=== PATIENT | female | born 1960 | race Caucasian/White ===

== ENCOUNTER → 2019-10-03 16:04 | Outpatient (BNVA) | payer MEDICAID, SELFPAY | PROVIDERS: Family Provider Family Medicine; PCP Family Medicine; Visit Provider Nurse Practitioner | DX: R05 Cough (principal); J22 Unspecified acute lower respiratory infection | CPT/HCPCS: 71046 ==

== ENCOUNTER 2020-04-23 11:04 | Inpatient (IN) | payer MEDICAID, SELFPAY ==
[2020-04-23] VITALS (30 sets, daily range): BP systolic 105–168; BP diastolic 76–110; PULSE 56–126; RESP 7–47; TEMP 36.6–36.8; O2SAT 88–100; BMI 13.2
--- NOTE | 2020-04-23 11:23 | XR_ITS ---
WS: [id number] Exam: XR chest 1V portable [id number] Date/Time of Exam: 04/23/2020 11:27 AM Reason For Exam: chest pain Comparison 10/03/2019. The lungs are hyperinflated and clear. Normal cardiomediastinal structures. Healing fracture with jena juancarlos involving the posterior lateral left ninth rib. XR/XR chest 1V portable [id number] IMPRESSION: 1. Pulmonary hyperinflation which may indicate COPD. 2. No acute cardiopulmonary process. 3. Healing fracture of the left ninth rib.
--- NOTE | 2020-04-23 11:30 | W.ED.CHESTPA ---
HPI - Chest Pain General: Chief Complaint: Chest Pain Stated Complaint: SOB, CHEST PAIN Time Seen by Provider: 04/23/20 11:05 History of Present Illness: HPI narrative: 59-year-old female presents emergency room with complaint of chest pain and shortness of breath. She has had this for last couple days she usually uses 2 L by nasal cannula but at times getting excessively short of breath her sats drop into the 80s even when her oxygen sat is turned off she is also had some intermittent chest pain that begins while at rest it resolved spontaneously. She denies any fever has had an increased cough with increased sputum production. MD complaint: chest heaviness Pertinent past history: other (COPD) Onset (ago): hour(s) Timing of current episode: constant and increasing Onset: during rest Pain radiation: none Severity: mild Quality: heaviness Relieving factors: nothing Exacerbating factors: nothing Associated symptoms: Reports dyspnea; Deny abdominal pain, diaphoresis, fever(s), leg edema, nausea, palpitations, sense of impending doom, syncope or vomiting Treatment prior to arrival: none Review of Systems Const: Denies: fever(s) or diaphoresis ENMT: Denies: throat pain, ear or mastoid pain, nasal discharge or nasal congestion Card: Denies: palpitations or syncope Resp: Reports: dyspnea and productive cough GI: Denies: abdominal pain, nausea or vomiting : Denies: flank pain, difficulty voiding, dysuria, urinary frequency or urinary urgency Skin/Breast: Denies: rash or pruritus PFSH ED PFSH: Medical History COPD (chronic obstructive pulmonary disease) GERD (gastroesophageal reflux disease) Surgical History H/O laparoscopy Family History Mother COPD (chronic obstructive pulmonary disease) Father CAD (coronary artery disease) Social History Smoking and tobacco status: current every day smoker Alcohol intake: never Substance/Drug Use: never Physical Exam Const: COMMON NORMALS: no acute distress GENERAL APPEARANCE: cooperative and comfortable ORIENTATION/CONSCIOUSNESS: Yes awake, Yes oriented to person, Yes oriented to place and Yes oriented to time HENMT: COMMON NORMALS: normocephalic, atraumatic and hearing grossly normal bilaterally HEAD & SCALP: normocephalic and atraumatic Neck/C-Spine: COMMON NORMALS: no JVD Resp: COMMON NORMALS: normal respiratory effort, No retractions, No use of accessory muscles and clear to auscultation bilaterally AUSCULTATION: clear to auscultation bilaterally Cardio: COMMON NORMALS: no JVD, regular rate, regular rhythm and No murmurs present (Cardio) RATE: regular rate RHYTHM: regular rhythm GI: COMMON NORMALS: Soft to palpation and No hepatosplenomegaly present AUSCULTATION: Yes normoactive bowel sounds PALPATION: Yes Soft to palpation, No Tenderness to palpation present (GI), No Guarding due to palpation present (GI) and Yes No hepatosplenomegaly present Extremity: COMMON NORMALS: normal to inspection, capillary refill normal, no clubbing, cyanosis or edema, no calf tenderness and no pedal edema Neuro: SENSORIUM/ORIENTATION: Yes oriented to person, Yes oriented to place and Yes oriented to time Skin: COMMON NORMALS: no rashes or lesions noted GENERAL SKIN EXAM: no rashes or lesions noted Course Vital Signs: Vital signs: Vital Signs Temperature 98.2 F 04/23/20 11:05 Pulse Rate 121 H 04/23/20 13:00 Respiratory Rate 26 H 04/23/20 13:00 Blood Pressure 139/98 04/23/20 13:00 Pulse Oximetry 98 04/23/20 13:00 MDM - Chest Pain MDM Narrative: Medical decision making narrative: Chest x-ray looks clear. Patient has acute hypercapnic respiratory failure suspect she has no pneumonia at this point. We did screen for Covid. Is improved on BiPAP will admit her to the ICU she does need sedation to tolerate BiPAP. Lab Data: Labs: Lab Results 04/23/20 04/23/20 04/23/20 Range/Units 11:26 11:26 11:26 WBC 3.9 L (4.0-10.0) 10^3/ uL RBC 4.67 (4.1-5.3) 10^6/u L Hgb 13.2 (11.5-15.3) g/dL Hct 43.6 (37.0-47.0) % MCV 93.4 (81-99) fL MCH 28.3 (28.0-34.0) pg MCHC 30.3 (30.0-36.0) g/dL RDW 12.4 (12.1-15.1) % Plt Count 188 (130-400) 10^3/c mm MPV 10.3 (7.4-10.4) fL Neut % (Auto) 58.9 % Lymph % (Auto) 24.5 % Mcdowell % (Auto) 10.9 % Eos % (Auto) 3.6 % Baso % (Auto) 1.6 % Neut # (Auto) 2.28 (1.8-7.7) 10^3/u L Lymph # (Auto) 1.0 (0.8-4.8) 10^3/u L Mcdowell # (Auto) 0.4 (0.2-0.9) 10^3/u L Eos # (Auto) 0.1 (0.0-0.8) 10^3/u L Baso # (Auto) 0.1 (0.0-0.1) 10^3/u L Nucleated RBC % (a uto) 0 % Nucleated RBCs # 0.0 /100WBC Specimen Type Sample Site ABG pH (7.35-7.45) ABG pCO2 (35-45) mmHg ABG pO2 (80.0-100.0) mmH g ABG HCO3 (22-26) mmol/L ABG O2 Saturation ABG Base Excess (-2.0-2.0) mmol/ L Adrian Test A-a O2 Gradient Hematocrit (37-47) % Hgb O2 Saturation (95-100) % Carboxyhemoglobin (0.4-20.1) %THgb Methemoglobin (0.4-1.5) % Total Hemoglobin (12-16) g/dL Ionized Calcium (1.1-1.4) mmol/L O2 Delivery Device O2 Liters/Min % Development Professional ID Sodium Cancelled Potassium Cancelled Chloride Cancelled Carbon Dioxide Cancelled Anion Gap Cancelled BUN Cancelled Creatinine Cancelled GFR Calculation Cancelled Glucose Cancelled Calculated Osmolal ity Cancelled Calcium Cancelled Total Bilirubin Cancelled AST Cancelled ALT Cancelled Alkaline Phosphata se Cancelled Troponin T Baselin e Cancelled Total Protein Cancelled Albumin Cancelled Globulin Cancelled SARS-CoV-2 Ag (Rap id) (Negative) 04/23/20 04/23/20 04/23/20 Range/Units 11:50 12:01 12:07 WBC (4.0-10.0) 10^3/ uL RBC (4.1-5.3) 10^6/u L Hgb (11.5-15.3) g/dL Hct (37.0-47.0) % MCV (81-99) fL MCH (28.0-34.0) pg MCHC (30.0-36.0) g/dL RDW (12.1-15.1) % Plt Count (130-400) 10^3/c mm MPV (7.4-10.4) fL Neut % (Auto) % Lymph % (Auto) % Mcdowell % (Auto) % Eos % (Auto) % Baso % (Auto) % Neut # (Auto) (1.8-7.7) 10^3/u L Lymph # (Auto) (0.8-4.8) 10^3/u L Mcdowell # (Auto) (0.2-0.9) 10^3/u L Eos # (Auto) (0.0-0.8) 10^3/u L Baso # (Auto) (0.0-0.1) 10^3/u L Nucleated RBC % (a uto) % Nucleated RBCs # /100WBC Specimen Type Arterial Sample Site Brachial, left ABG pH 7.36 (7.35-7.45) ABG pCO2 90.1 H* (35-45) mmHg ABG pO2 91.7 (80.0-100.0) mmH g ABG HCO3 50.4 H (22-26) mmol/L ABG O2 Saturation 97.8 ABG Base Excess 20.0 H (-2.0-2.0) mmol/ L Adrian Test N/a A-a O2 Gradient Not Reportable Hematocrit 39.9 (37-47) % Hgb O2 Saturation 96.0 (95-100) % Carboxyhemoglobin 1.1 (0.4-20.1) %THgb Methemoglobin 0.7 (0.4-1.5) % Total Hemoglobin 13.0 (12-16) g/dL Ionized Calcium 1.2 (1.1-1.4) mmol/L O2 Delivery Device Nc O2 Liters/Min 2.5 % Development Professional ID Gd Sodium 136.0 137 Potassium 4.2 4.5 Chloride 90 L Carbon Dioxide 47 H* Anion Gap 4.5 L BUN 9 Creatinine 0.8 GFR Calculation 73.7 L Glucose 107.0 111 Calculated Osmolal ity 283 L Calcium 9.5 Total Bilirubin 0.4 AST 26 ALT 22 Alkaline Phosphata se 56 Troponin T Baselin e Total Protein 6.4 L Albumin 3.9 Globulin 2.5 SARS-CoV-2 Ag (Rap id) Negative (Negative) 04/23/20 Range/Units 12:07 WBC (4.0-10.0) 10^3/ uL RBC (4.1-5.3) 10^6/u L Hgb (11.5-15.3) g/dL Hct (37.0-47.0) % MCV (81-99) fL MCH (28.0-34.0) pg MCHC (30.0-36.0) g/dL RDW (12.1-15.1) % Plt Count (130-400) 10^3/c mm MPV (7.4-10.4) fL Neut % (Auto) % Lymph % (Auto) % Mcdowell % (Auto) % Eos % (Auto) % Baso % (Auto) % Neut # (Auto) (1.8-7.7) 10^3/u L Lymph # (Auto) (0.8-4.8) 10^3/u L Mcdowell # (Auto) (0.2-0.9) 10^3/u L Eos # (Auto) (0.0-0.8) 10^3/u L Baso # (Auto) (0.0-0.1) 10^3/u L Nucleated RBC % (a uto) % Nucleated RBCs # /100WBC Specimen Type Sample Site ABG pH (7.35-7.45) ABG pCO2 (35-45) mmHg ABG pO2 (80.0-100.0) mmH g ABG HCO3 (22-26) mmol/L ABG O2 Saturation ABG Base Excess (-2.0-2.0) mmol/ L Adrian Test A-a O2 Gradient Hematocrit (37-47) % Hgb O2 Saturation (95-100) % Carboxyhemoglobin (0.4-20.1) %THgb Methemoglobin (0.4-1.5) % Total Hemoglobin (12-16) g/dL Ionized Calcium (1.1-1.4) mmol/L O2 Delivery Device O2 Liters/Min % Development Professional ID Sodium Potassium Chloride Carbon Dioxide Anion Gap BUN Creatinine GFR Calculation Glucose Calculated Osmolal ity Calcium Total Bilirubin AST ALT Alkaline Phosphata se Troponin T Baselin e 36 H Total Protein Albumin Globulin SARS-CoV-2 Ag (Rap id) (Negative) Discharge Plan Discharge Admit Provider: Nba Wagner Clinical Impression: Acute hypercapnic respiratory failure, HIV (human immunodeficiency virus infection), COPD (chronic obstructive pulmonary disease), GERD (gastroesophageal reflux disease) Condition: Stable Coding Level of Care Code ED Process Development Associate for Paris Dickerson
[2020-04-23 11:36] LABS: Basophils # 0.1 10^3/uL (0.0-0.1); Basophils % 1.6 %; Eosinophils # 0.1 10^3/uL (0.0-0.8); Eosinophils % 3.6 %; Hematocrit 43.6 % (37.0-47.0); Hemoglobin 13.2 g/dL (11.5-15.3); Lymphocytes % 24.5 %; Mean Corpuscular HGB Conc 30.3 g/dL (30.0-36.0); Mean Corpuscular Hemoglobin 28.3 pg (28.0-34.0); Mean Corpuscular Volume 93.4 fL (81-99); Mean Platelet Volume 10.3 fL (7.4-10.4); Monocytes # 0.4 10^3/uL (0.2-0.9); Monocytes % 10.9 %; Neutrophils # 2.28 10^3/uL (1.8-7.7); Neutrophils % 58.9 %; Nucleated Red Blood Cells % 0 %; Platelet Count 188 10^3/cmm (130-400); Red Blood Count 4.67 10^6/uL (4.1-5.3); Red Cell Distribution Width 12.4 % (12.1-15.1); White Blood Count 3.9 10^3/uL (4.0-10.0)
[2020-04-23 12:20] LABS: ABG PH Result 7.36 (7.35-7.45); Arterial Blood Gas Hematocrit 39.9 % (37-47); Blood Gas LPM 2.5 %; Blood Gas Operator Identificat GD; Blood Gas Sample Site Brachial, left; Blood Gas Sample Type Arterial; Carboxyhemoglobin 1.1 %THgb (0.4-20.1); HCO3 ABG 50.4 mmol/L (22-26); Ionized Calcium Level - ABG 1.2 mmol/L (1.1-1.4); Methemoglobin 0.7 % (0.4-1.5); Oxygen Device NC; Oxygen Saturation ABG 97.8; PO2 ABG 91.7 mmHg (80.0-100.0); Potassium Level - ABG 4.2 mmol/L (3.5-5.0)
[2020-04-23 12:21] LABS: ABG PCO2 90.1 mmHg (35-45)
[2020-04-23] MEDS: LORazepam 2 mg/mL INJ 1 mL 1 MG IVP ×2 (12:46→14:12)
[2020-04-23 12:51] LABS: Alanine Aminotransferase 22 U/L (0-33); Albumin Level 3.9 g/dL (3.5-5.2); Alkaline Phosphatase 56 IU/L (35-105); Anion Gap 4.5 (5-19); Aspartate Amino Transferase 26 U/L (0-32); Blood Urea Nitrogen 9 mg/dL (6-20); Calcium 9.5 mg/dL (8.5-10.5); Chloride 90 mmol/L (98-107); Globulin 2.5 g/dL (1.3-4.6); Glomerular Filtration Rate 73.7 mL/min (90-130); Glucose 111 mg/dL (65-115); Osmolality Calculated 283 mOsm/kg (285-295); Potassium 4.5 mmol/L (3.5-5.1); Sodium 137 mmol/L (136-145); Total Bilirubin 0.4 mg/dL (0.15-1.2); Total Protein 6.4 g/dL (6.6-8.7)
--- NOTE | 2020-04-23 12:51 | PC.NURSE ---
Gave 1 mg Ativan to calm and help anxiety from the BiPAP
[2020-04-23 13:08] LABS: Carbon Dioxide 47 mmol/L (22-29)
[2020-04-23 13:17] LABS: SARS Covid-2 Antigen Negative (Negative)
--- NOTE | 2020-04-23 13:23 | ECG_ITS ---
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 Measurements Intervals [place] Rate: 118 P: 87 LA: 135 QRS: 92 QRSD: 80 T: 80 QT: 288 QTc: 404 Interpretive Statements SINUS TACHYCARDIA RIGHT ATRIAL ENLARGEMENT [0.3mV P WAVE] LEFT ATRIAL ENLARGEMENT [-0.15mV P WAVE IN V1/V2] BORDERLINE RIGHT AXIS DEVIATION [QRS AXIS > 90] Compared to ECG 05/18/2018 17:06:44 No significant changes Electronically Signed On 04-24-2020 18:09:59 MANAGER SAS by Darren Blankenship M.D. [id number]
[2020-04-23 13:37] LABS: ABG PH Result 7.41 (7.35-7.45); Arterial Blood Gas Hematocrit 40.4 % (37-47); Base Excess ABG 20.2 mmol/L (-2.0-2.0); Blood Gas Sample Type Arterial; Carboxyhemoglobin 1.2 %THgb (0.4-20.1); HCO3 ABG 49.3 mmol/L (22-26); HGB O2 Sat 92.5 % (95-100); Ionized Calcium Level - ABG 1.2 mmol/L (1.1-1.4); Methemoglobin 0.7 % (0.4-1.5); Oxygen Saturation ABG 94.3; PO2 ABG 63.9 mmHg (80.0-100.0); Potassium Level - ABG 4.3 mmol/L (3.5-5.0); Total Hemoglobin 13.2 g/dL (12-16)
[2020-04-23 13:39] LABS: Blood Gas Sample Site Brachial, left; Oxygen Device BIPAP
[2020-04-23 13:41] LABS: ABG PCO2 77.6 mmHg (35-45); Blood Gas Operator Identificat GD
[2020-04-23 13:44] LABS: Troponin(5th) Baseline 36 ng/L (0-10)
--- NOTE | 2020-04-23 13:44 | P.HP_ITS ---
Providers/Chief Complaint Chief Complaint: SOB, CHEST PAIN History of Present Illness Adore Broussard is a 59 year old female with a past medical history of severe COPD, 2 L oxygen dependent, smoker, history of HIV, who presents to [facility] due to complaints of worsening shortness of breath. Patient tells me that for the last few days her oxygen requirements have increased, she has been desaturating on her pulse ox, feeling more short of breath, no fevers, no chills, has a chronic nonproductive cough, no new recent travel, known exposure to COVID-19, no calf pain, no calf swelling, no hemoptysis. Denies chest pain, denies palpitations. In the emergency room, patient was found to have hypercarbic respiratory failure with PCO2 is in the 90s, was placed on the BiPAP, required a milligram of Ativan to help with her anxiety with the machine, her PCO2 has now improved in the 70s, pH is improving, she is tolerating BiPAP well. Patient is agreeable to intubation or mechanical ventilation if required. No focal pneumonia seen on chest x-ray. Patient's rapid Covid negative. Review of Systems Const: Denies: fever(s), chills, fatigue or malaise Eyes: Denies: change in vision or blurry vision ENMT: Denies: nasal congestion Card: Denies: chest pain or palpitations Resp: Reports: dyspnea and non-productive cough; Denies: productive cough or wheezing GI: Denies: abdominal pain, nausea, vomiting, hematemesis, diarrhea, constipation, hematochezia or melena : Denies: flank pain, dysuria or urinary frequency Musc: Denies: neck pain or back pain Skin/Breast: Denies: rash Neuro: Denies: headache(s), dizziness or vertigo Psych: Denies: anxiety or depression Endo: Denies: polyuria or polydipsia Medications/Allergies Home Medications Medication Instructions Recorded Confirmed Last Taken Type AIDS medications PO 10/03/19 Unknown History albuterol sulfate 1.25 mg/3 mL 2.5 mg INHALATION QID 10/03/19 10/03/19 Unknown History solution for nebulization albuterol sulfate 90 mcg/actuation 2 puff INHALATION Q6H PRN 10/03/19 10/03/19 Unknown History aerosol inhaler budesonide-formoterol HFA 160 2 puff INHALATION BID 10/03/19 10/03/19 Unknown H istory mcg-4.5 mcg/actuation aerosol inhaler doxycycline hyclate 100 mg capsule 100 mg PO BID 10 Days #20 cap 10/03/19 10/03/19 Unknown Rx montelukast 10 mg tablet 10 mg PO DAILY 10/03/19 10/03/19 Unknown History prednisone 20 mg tablet 20 mg PO DAILY 10 Days #10 tab 10/03/19 10/03/19 Unknown Rx sulfamethoxazole 400 1 tab PO .three times weekly tab 10/03/19 10/03/19 Unknown History mg-trimethoprim 80 mg tablet tiotropium bromide 1.25 2 puff INHALATION DAILY 10/03/19 10/03/19 Unknown History mcg/actuation mist for inhalation Allergies Allergy/AdvReac Type Severity Reaction Status Date / Time Penicillins Allergy ALGY-Difficulty Verified 10/03/19 15:40 Breathing phenobarbital Allergy ALGY-Hives Verified 04/23/20 11:18 Tetanus Vaccines and Toxoid Allergy ALGY-Hives Verified 04/23/20 11:18 PFSH Acute PFSH: Medical History (Updated 04/23/20 @ 13:48 by Nba Wagner MD) COPD (chronic obstructive pulmonary disease) GERD (gastroesophageal reflux disease) Surgical History (Updated 04/23/20 @ 13:47 by Nba Wagner MD) H/O laparoscopy Family History (Updated 04/23/20 @ 13:47 by Nba Wagner MD) Mother COPD (chronic obstructive pulmonary disease) Father CAD (coronary artery disease) Social History (Updated 04/23/20 @ 13:47 by Nba Wagner MD) Smoking and tobacco status: current every day smoker Alcohol intake: never Substance/Drug Use: never Vitals/I&O/Wt Last Vital Signs Temp 98.2 F 04/23/20 11:05 Pulse 121 H 04/23/20 13:00 Resp 26 H 04/23/20 13:00 BP 139/98 04/23/20 13:00 Pulse Ox 98 04/23/20 13:00 Weight last 48 hrs Weight 31.751 kg Physical Exam Const: COMMON NORMALS: no acute distress and patient oriented x3 GENERAL APPEARANCE: cooperative and comfortable HENMT: COMMON NORMALS: normocephalic HEAD & SCALP: normocephalic Eye: COMMON NORMALS: Equal, round and reactive pupils present and EOMs intact bilaterally GENERAL EYE: appearance normal, both eyes and all related structures PUPIL: Yes Equal, round and reactive pupils present Neck/C-Spine: COMMON NORMALS: full ROM, no lymphadenopathy, no JVD and Thyroid normal THYROID: Thyroid normal Lymph: LYMPHATIC: no lymphadenopathy noted Resp: COMMON NORMALS: normal respiratory effort and No retractions EFFORT & INSPECTION: Yes tachypneic and Yes retractions (Mild retractions, supr aclavicular, mild intercostal retractions) AUSCULTATION: diminished lung sounds diffuse Cardio: COMMON NORMALS: no JVD, regular rate, regular rhythm, S1 normal heart sound present, S2 normal heart sound present, No gallops present (Cardio), No clicks present (Cardio) and No murmurs present (Cardio) RATE: regular rate RHYTHM: regular rhythm HEART SOUNDS: S1 normal heart sound present and S2 normal heart sound present GI: COMMON NORMALS: Normal to inspection, nondistended, normoactive bowel sounds present, Soft to palpation, non-tender and No hepatosplenomegaly present PALPATION: Yes Soft to palpation and Yes No hepatosplenomegaly present Extremity: COMMON NORMALS: normal to inspection, full ROM and no pedal edema Neuro: COMMON NORMALS: patient oriented x3, CN's II-XII intact bilaterally, moves all extremities and no focal motor deficits Psych: COMMON NORMALS: mental status grossly normal, Normal thought process present and cooperative THOUGHT PROCESS: Normal thought process present Data : 04/23/20 11:26 04/23/20 12:07 A&P Assessment and plan (1) Acute hypercapnic respiratory failure: -Likely secondary to COPD -Rapid Covid negative, but will order Covid PCR -Currently tolerating BiPAP well, PCO2 improved in the 70s, pH improving Plan: -Admit to ICU, patient is ICU level care given significant hypercapnia, BiPAP re quirements, -We will order Covid PCR, Covid isolation -Lovenox for DVT prophylaxis -Full code -Solu-Medrol 60 every 8 -Levaquin for antibiotic coverage -Advair, albuterol, Spiriva, ipratropium -Sputum cultures, blood cultures, urine bacterial antigens, Covid PCR -Monitor respiratory status closely -Repeat ABG at 6 PM -If patient respiratory status worsens, low threshold for intubation -Trend troponins, serial EKGs, telemetry monitoring, order cardiac echo -Order CT angiogram of the chest Status: Acute (2) GERD (gastroesophageal reflux disease): Status: Acute (3) COPD (chronic obstructive pulmonary disease): Status: Acute (4) HIV (human immunodeficiency virus infection): Status: Acute Attestations Medical Necessity Statement*: Patient course hospitalization, inpatient, greater than 2 midnights, ICU, for acute hypercapnic respiratory failure secondary COPD Coding Level of Care Code Acute Scallop Shucker for [facility] Fwd Diagnoses Acute hypercapnic respiratory failure J96.02 GERD (gastroesophageal reflux disease) K21.9 COPD (chronic obstructive pulmonary disease) J44.9 HIV (human immunodeficiency virus infection) B20
[2020-04-23 14:57] LABS: Troponin 5 2HR 31.92 ng/L (0-10)
[2020-04-23 14:58] LABS: Troponin 5 2HR Delta -4.08 ABS# (0-10)
--- NOTE | 2020-04-23 15:19 | PC.NURSE ---
Pt arrived to ICU from ED via bed.
--- NOTE | 2020-04-23 15:37 | CTR_ITS ---
PROCEDURE INFORMATION: Exam: CT Angiography Chest With Contrast Exam date and time: 04/23/2020 4:06 PM Age: 59 years old Clinical indication: Shortness of breath; Additional info: SOB TECHNIQUE: Imaging protocol: Computed tomographic angiography of the chest with intravenous contrast. 3D rendering (Not supervised by radiologist): MIP and/or 3D reconstructed images were created by the technologist. Radiation optimization: All CT scans at this facility use at least one of these dose optimization techniques: automated exposure control; mA and/or kV adjustment per patient size (includes targeted exams where dose is matched to clinical indication); or iterative reconstruction. Contrast material: OMNI 350; Contrast volume: 58 ml; Contrast route: INTRAVENOUS (IV); COMPARISON: CR XR chest 1V portable [id number] 04/23/2020 11:26 AM RADIATION DOSE METRICS: Total DLP (mGy-cm): 344.23 FINDINGS: Pulmonary arteries: Pulmonary arteries are well opacified. Pulmonary arteries are normal in caliber. No filling defects are demonstrated. No evidence of pulmonary embolism. Aorta: Mild atherosclerosis of the thoracic aorta. No aortic aneurysm or dissection. Lungs: Diffuse centrilobular emphysema. No pulmonary infiltrates are noted. No pulmonary nodules identified. Pleural spaces: No pleural effusion or pneumothorax noted. Heart: No cardiomegaly. Thickening of the left ventricular myocardium suggesting systemic hypertension. No pericardial effusion. Lymph nodes: Unremarkable. No enlarged lymph nodes. Bones/joints: No fracture or other acute osseous abnormality. Soft tissues: The soft tissues appear unremarkable. CT/CT angio chest PE protcl [id number] IMPRESSION: 1. Pulmonary arteries appear unremarkable. No evidence of pulmonary embolism. 2. No evidence of thoracic aortic aneurysm or dissection. 3. Diffuse centrilobular emphysema. No pulmonary infiltrates are noted. 4. No cardiomegaly. Thickening of the left ventricular myocardium suggesting systemic hypertension. Radiation Dose CTDIVOL = (mGy): DLP = 344.23 (mGy-cm)
--- NOTE | 2020-04-23 15:40 | PC.NURSE ---
Unable to access pt meds. Unverified from pharmacy. Kameron from Pharmacy notified. Will verifiy meds.
--- NOTE | 2020-04-23 16:20 | PC.NURSE ---
Unable to access pt meds. Pharmacy has not verified meds. Called Kameron in Pharmacy. Kameron to verify and retime meds soon.
[2020-04-23 16:40] LABS: NT Pro B Type Natriuretic Pept 1337 pg/mL (0-125)
--- NOTE | 2020-04-23 17:23 | ECG_ITS ---
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 Measurements Intervals [place] Rate: 111 P: 86 RI: 116 QRS: 85 QRSD: 74 T: 80 QT: 319 QTc: 434 Interpretive Statements SINUS TACHYCARDIA WITH SHORT RI INTERVAL POSSIBLE RIGHT ATRIAL ENLARGEMENT [0.25mV P WAVE] LEFT ATRIAL ENLARGEMENT [-0.15mV P WAVE IN V1/V2] Compared to ECG 05/18/2018 17:06:44 Short RI interval now present Electronically Signed On 04-24-2020 18:07:51 COUNTER PERSON by Darren Blankenship M.D. [id number]
[2020-04-23] MEDS: enoxaparin 40 mg/0.4 mL Syringe SUBCUT (17:53)
[2020-04-23] MEDS: levofloxacin-dextrose 5 % 750 MG/150 ML PREMIX 100 MG IV (17:54)
[2020-04-23] MEDS: iohexol 350 mg/mL 100 mL Btl IV (18:35)
[2020-04-23 18:40] LABS: Urine Appearance Hazy (CLEAR); Urine Color Yellow (Yellow); pH Urine 8 (5-7)
[2020-04-23 18:41] LABS: Add Urine Microscopic? YES; Bilirubin Urine Neg (Negative); Blood Urine Neg (Negative); Glucose Urine UA Norm (Normal); Ketones Urine Negative (Negative); Leukocyte Esterase Urine Negative (Negative); Nitrate Urine Negative (Negative); Protein Urine Neg (Negative); Sulfosalicylic Acid Urine Negative (Negative); Urobilinogen Urine Norm (Negative)
[2020-04-23 18:54] LABS: Add Urine Culture? No; Amorphous Sediment Urine 1+ /hpf; Bacteria Urine TRACE /hpf; Squamous Epithelial Cell Urine 15-25 /hpf (0-5)
[2020-04-23] MEDS: ipratropium-albuterol 3 mL Neb INHALATION (20:02)
[2020-04-23 20:08] LABS: Troponin 5 6HR 24.99 ng/L (0-10)
[2020-04-24] VITALS (34 sets, daily range): BP systolic 113–153; BP diastolic 69–106; PULSE 92–141; RESP 13–38; TEMP 36.7–37.1; O2SAT 92–100
--- NOTE | 2020-04-24 01:42 | PC.PHAR ---
Renal dosing of Levaquin 750mg q24h changed to q48h because of crcl of 38.42
[2020-04-24 04:07] LABS: Basophils % 0.4 %; Eosinophils % 0.4 %; Hematocrit 49.3 % (37.0-47.0); Hemoglobin 15.2 g/dL (11.5-15.3); Lymphocytes # 0.8 10^3/uL (0.8-4.8); Lymphocytes % 28.9 %; Mean Corpuscular HGB Conc 30.8 g/dL (30.0-36.0); Mean Corpuscular Hemoglobin 28.6 pg (28.0-34.0); Mean Corpuscular Volume 92.8 fL (81-99); Mean Platelet Volume 10.8 fL (7.4-10.4); Monocytes # 0.1 10^3/uL (0.2-0.9); Monocytes % 5.3 %; Neutrophils % 64.6 %; Nucleated Red Blood Cells % 0 %; Platelet Count 201 10^3/cmm (130-400); Red Blood Count 5.31 10^6/uL (4.1-5.3); Red Cell Distribution Width 12.5 % (12.1-15.1); White Blood Count 2.6 10^3/uL (4.0-10.0)
[2020-04-24 04:31] LABS: INR 0.96 (0.8-1.2)
[2020-04-24 04:58] LABS: ABG PH Result 7.47 (7.35-7.45); Arterial Blood Gas Hematocrit 40.6 % (37-47); Base Excess ABG 17.7 mmol/L (-2.0-2.0); Blood Gas Sample Site Brachial, left; Blood Gas Sample Type Arterial; HCO3 ABG 44.8 mmol/L (22-26); Oxygen Device BIPAP; PO2 ABG 60.6 mmHg (80.0-100.0)
[2020-04-24 04:59] LABS: ABG PCO2 62.3 mmHg (35-45)
[2020-04-24 05:13] LABS: Lactate (Lactic Acid level) 1.7 mmol/L (0.5-2.2); NT Pro B Type Natriuretic Pept 1134 pg/mL (0-125); Procalcitonin 0.08 ng/mL (0-0.5)
[2020-04-24 05:14] LABS: Magnesium 2.2 mg/dL (1.7-2.3); Phosphorus 4.1 mg/dL (2.5-4.5); Thyroid Stimulating Hormone 0.56 uIU/mL (0.27-4.20)
[2020-04-24 05:15] LABS: Alanine Aminotransferase 24 U/L (0-33); Albumin Level 4.1 g/dL (3.5-5.2); Alkaline Phosphatase 63 IU/L (35-105); Anion Gap 14.1 (5-19); Aspartate Amino Transferase 25 U/L (0-32); Blood Urea Nitrogen 17 mg/dL (6-20); Chloride 86 mmol/L (98-107); Glomerular Filtration Rate 64.3 mL/min (90-130); Glucose 104 mg/dL (65-115); Osmolality Calculated 284 mOsm/kg (285-295); Potassium 5.1 mmol/L (3.5-5.1); Sodium 136 mmol/L (136-145); Total Bilirubin 0.5 mg/dL (0.15-1.2); Total Protein 7.1 g/dL (6.6-8.7)
[2020-04-24 05:25] LABS: Chol HDL Ratio 3.67 mg/dL (0.0-4.40); Cholesterol 257 mg/dL (0-200); Creatine Phosphokinase 42 U/L (26-192); HDL Cholesterol 70 mg/dL (60-100); LDL Cholesterol Calculated 159 mg/dL (50-129); LDL HDL Ratio 2.27 RATIO (0.00-3.22); Triglycerides 142 mg/dL (0-150)
[2020-04-24 05:52] LABS: Carbon Dioxide 41 mmol/L (22-29)
--- NOTE | 2020-04-24 06:00 | USCV_ITS ---
Adore Broussard Age: 59 Gender: F : 1960 Exam Date: 04/24/2020 06:28 Ordering Phys: Nba Wagner MD Technologist: Destinee Dempsey Exam Location: [facility] Indication: SOB BP: 151 / 106 HR: 107 Rhythm: Sinus Technical Quality: Adequate MEASUREMENTS (Male / Female) Normal Values 2D ECHO LV Diastolic Diameter PLAX 3.6 cm 4.2 - 5.9 / 3.9 - 5.3 cm LV Systolic Diameter PLAX 2.9 cm IVS Diastolic Thickness 1.5 cm 0.6 - 1.0 / 0.6 - 0.9 cm IVS Systolic Thickness 1.2 cm LVPW Diastolic Thickness 1.1 cm 0.6 - 1.0 / 0.6 - 0.9 cm LVPW Systolic Thickness 1.3 cm RV Chamber Size 2.1 cm LVOT Diameter 2.0 cm LV Ejection Fraction 2D Teich 44.4 % LV Ejection Fraction MOD 2C 34.1 % LV Ejection Fraction 2C AL 40.0 % LA Diameter 2.6 cm LA Width 2.6 cm LA Height 3.5 cm RA Width 1.8 cm RA Height 2.6 cm Aorta at Sinotubular Diameter 2.3 cm M-MODE LV Diastolic Diameter MM 4.7 cm 4.2 - 5.9 / 3.9 - 5.3 cm LV Systolic Diameter MM 3.5 cm LV Ejection Fraction MM Teich 50.0 % IVS Diastolic Thickness MM 0.9 cm 0.6 - 1.0 / 0.6 - 0.9 cm IVS Systolic Thickness MM 1.0 cm LVPW Diastolic Thickness MM 1.0 cm 0.6 - 1.0 / 0.6 - 0.9 cm LVPW Systolic Thickness MM 1.2 cm Aortic Annulus Diameter 2.8 cm LA Ao Ratio MM 1.0 MV E Point Septal Separation 0.3 cm DOPPLER AV Peak Velocity 134.0 cm/s LVOT Peak Velocity 104.0 cm/s AV Area Cont Eq vti 2.1 cm squared AV Area Cont Eq pk 2.5 cm squared MV Area PHT 18.3 cm squared Mitral E to A Ratio 1.8 MV E' Velocity 61.0 cm/s Mitral E to MV E' Ratio 7.1 Mitral E to LV E' Lateral Ratio 7.5 Mitral E to LV E' Septal Ratio 6.7 TR Peak Velocity 227.7 cm/s TR Peak Gradient 20.7 mmHg Right Atrial Pressure 3.0 mmHg Pulmonary Artery Systolic Pressu 23.7 mmHg PV Peak Velocity 74.3 cm/s RV Acceleration Time 0.1 s RV Ejection Time 0.2 s RV AcT/ET 0.4 FINDINGS Left Ventricle Normal left ventricular cavity size. Normal left ventricular systolic function. Left ventricular ejection fraction is estimated at 60 %. No regional wall motion abnormalities. Grade II diastolic dysfunction, moderately elevated filling pressures. Right Ventricle Normal right ventricular size and systolic function. Right ventricular systolic pressure 23.7 mmHg. Right Atrium Normal right atrial size. Right atrial pressure estimated at 3 mmHg. Left Atrium Normal left atrial size. Mitral Valve Thickened mitral valve. No mitral valve stenosis. Trace mitral valve regurgitation. Aortic Valve Aortic valve not well visualized. No aortic valve stenosis. No aortic valve regurgitation. Tricuspid Valve Structurally normal tricuspid valve. Trace to mild tricuspid valve regurgitation. Pulmonic Valve Pulmonic valve not well visualized. No pulmonary valve stenosis. Pericardium No pericardial effusion. Normal-sized inferior vena cava. Aorta Normal-sized aortic root. CONCLUSIONS 1. Normal left ventricular cavity size and systolic function. Left ventricular ejection fraction is estimated at 60 %. No regional wall motion abnormalities. Grade II diastolic dysfunction, moderately elevated filling pressures. 2. Normal right ventricular size and systolic function. 3. No significant valvular abnormality. 4. Normal pulmonary artery pressure estimated at 24 mmHg. 5. No prior similar studies to compare. Marianna Guadalupe MD (Electronically Signed) Final Date: 24 April 2020 16:00 S
[2020-04-24 06:26] LABS: C Reactive Protein 0.3 mg/L (0.0-4.9)
[2020-04-24 06:50] LABS: Estmated Average Glucose 103; Hemoglobin A1C 5.2 % (4.0-6.0)
--- NOTE | 2020-04-24 07:00 | XR_ITS ---
WS: [id number] Exam: XR chest 1V portable [id number] Date/Time of Exam: 04/24/2020 7:00 AM Reason For Exam: sob Comparison 04/23/2020. The lungs are hyperinflated and clear. Normal cardiomediastinal structures. No pleural effusions. Mon itoring leads superimpose the chest. No change. XR/XR chest 1V portable [id number] IMPRESSION: 1. Pulmonary hyperinflation. No acute process identified.
[2020-04-24] MEDS: ipratropium-albuterol 3 mL Neb INHALATION ×4 (07:41→20:39)
[2020-04-24] MEDS: FUROsemide 10 mg/mL SDV 4mL 40 MG IVP (09:33)
[2020-04-24] MEDS: pantoprazole DR 40 mg Tablet PO (09:33)
[2020-04-24] MEDS: montelukast sodium 10 mg Tablet PO (09:33)
--- NOTE | 2020-04-24 11:39 | PM.PN ---
Subjective Subjective: Interval history: Patient was examined this morning, she is on 2 to 3 L nasal cannula, she is off BiPAP for breakfast, she tells me she is doing significantly better, she feels better, no chest pain, no palpitations, no lightheadedness, dizziness, she tells me that she takes Biktarvy for HIV, has not seen her infectious disease physician in over 7 months, but has done telemetry visits Vitals/I&O/Wt Last Vital Signs Temp 98.6 F 04/24/20 08:04 Pulse 116 H 04/24/20 11:04 Resp 30 H 04/24/20 11:04 BP 138/80 04/24/20 08:04 Pulse Ox 98 04/24/20 11:04 04/23/20 04/24/20 04/24/20 22:59 06:59 14:59 Intake Total 0 / 0 300 / 300 Output Total 525 / 525 Balance -525 / -525 300 / -225 Weight last 48 hrs Weight 31.751 kg Physical Exam Const: COMMON NORMALS: no acute distress and patient oriented x3 NUTRITIONAL APPEARANCE: cachectic HENMT: COMMON NORMALS: normocephalic HEAD & SCALP: normocephalic Neck/C-Spine: COMMON NORMALS: no JVD Resp: COMMON NORMALS: normal respiratory effort, No retractions, No use of accessory muscles and clear to auscultation bilaterally AUSCULTATION: clear to auscultation bilaterally Cardio: COMMON NORMALS: no JVD, regular rate, regular rhythm, S1 normal heart sound present and S2 normal heart sound present RATE: regular rate RHYTHM: regular rhythm HEART SOUNDS: S1 normal heart sound present and S2 normal heart sound present GI: COMMON NORMALS: Normal to inspection, nondistended, normoactive bowel sounds present, Soft to palpation, non-tender, No hepatosplenomegaly present, no masses and no bruits PALPATION: Yes Soft to palpation and Yes No hepatosplenomegaly present Extremity: COMMON NORMALS: capillary refill normal, no clubbing, cyanosis or edema, no calf tenderness and no pedal edema Neuro: COMMON NORMALS: patient oriented x3 Psych: COMMON NORMALS: mental status grossly normal Data : 04/24/20 03:13 04/24/20 03:13 Micro: Microbiology 04/23/20 19:32 Blood Culture - Preliminary Blood SPECIMEN COLLECTED 04/23/20 19:28 Blood Culture - Preliminary Blood SPECIMEN COLLECTED A&P Assessment and plan (1) Acute hypercapnic respiratory failure: -Likely secondary to COPD -Rapid Covid negative, Covid PCR pending -Currently tolerating BiPAP well, PCO2 improved in the 60s, pH improving -CT angio: 1. Pulmonary arteries appear unremarkable. No evidence of pulmonary embolism. 2. No evidence of thoracic aortic aneurysm or dissection. 3. Diffuse centrilobular emphysema. No pulmonary infiltrates are noted. 4. No cardiomegaly. Thickening of the left ventricular myocardium suggesting systemic hypertension. Plan: -Admit to ICU, patient is ICU level care given significant hypercapnia, BiPAP requirements, -Covid PCR pending -Lovenox for DVT prophylaxis -Full code -Solu-Medrol 60 every 8 -Levaquin for antibiotic coverage -Advair, albuterol, Spiriva, ipratropium -Sputum cultures, blood cultures, urine bacterial antigens, Covid PCR -Monitor respiratory status closely -Patient will likely require noninvasive mechanical ventilation such as a BiPAP on discharge, given her chronic hypercarbic respiratory failure -If patient respiratory status worsens, low threshold for intubation -Cardiac echogram pending Status: Acute (2) GERD (gastroesophageal reflux disease): Status: Acute (3) COPD (chronic obstructive pulmonary disease): Status: Acute (4) HIV (human immunodeficiency virus infection): -Patient was advised to have family rumors bring her Biktarvy from home -She was supposed to have blood work done for HIV, presumably CD4 count, she will find out which is a blood work she has to get done, will order it here Status: Acute (5) Protein calorie malnutrition: Severe protein calorie malnutrition, BMI 13, protein shakes 2 times daily with meals Status: Acute (6) NSTEMI (non-ST elevated myocardial infarction): -Baseline troponin 36, 6-hour 24.699, 6-hour delta 11 -No complaints of chest pain -EKG no acute ST-T wave changes -Likely type II NSTEMI, supply demand ischemia from respiratory failure -Aspirin, statin, beta-antoine -Cardiac echocardiogram ordered -Telemetry monitoring -Monitor for chest pain Status: Acute Attestations Medical Necessity Statement*: Patient requires hospitalization for hypercarbic respiratory failure, NSTEMI, critical care time spent 45 minutes Coding Level of Care Code Acute Figurine Maker for [facility] Fwd Diagnoses Acute hypercapnic respiratory failure J96.02 GERD (gastroesophageal reflux disease) K21.9 COPD (chronic obstructive pulmonary disease) J44.9 HIV (human immunodeficiency virus infection) B20 Protein calorie malnutrition E46 NSTEMI (non-ST elevated myocardial infarction) I21.4
[2020-04-24] MEDS: carvedilol 3.125 mg Tablet PO ×2 (11:56→17:14)
[2020-04-24] MEDS: aspirin 81 mg EC Tablet PO (11:56)
[2020-04-24 15:21] LABS: Coronavirus Test Green County Not Detected
[2020-04-24] MEDS: enoxaparin 40 mg/0.4 mL Syringe SUBCUT (17:14)
[2020-04-24] MEDS: atorvastatin 40 mg Tablet PO (20:56)
[2020-04-25] VITALS (25 sets, daily range): BP systolic 124–163; BP diastolic 74–103; PULSE 92–122; RESP 18–39; TEMP 36.6–37.6; O2SAT 91–99
[2020-04-25] MEDS: lidocaine 2% viscous 15 ML, aluminum-mag hydrox-simethicon 30 ML, sucralfate oral liq 1 GM PO (00:05)
[2020-04-25] MEDS: zolpidem 5 mg Tablet PO ×2 (00:05→21:31)
[2020-04-25 04:26] LABS: Arterial Blood Gas Hematocrit 42.7 % (37-47); Base Excess ABG 20.3 mmol/L (-2.0-2.0); Blood Gas Allen Test Pos; Blood Gas Operator Identificat JB; Blood Gas Sample Site Radial, right; Blood Gas Sample Type Arterial; HCO3 ABG 47.4 mmol/L (22-26); Oxygen Device NC; PO2 ABG 56.8 mmHg (80.0-100.0)
[2020-04-25 04:27] LABS: ABG PCO2 61.4 mmHg (35-45)
[2020-04-25 05:49] LABS: INR 0.95 (0.8-1.2)
[2020-04-25 05:57] LABS: C Reactive Protein 0.3 mg/L (0.0-4.9); Phosphorus 3.5 mg/dL (2.5-4.5)
[2020-04-25 06:01] LABS: Lactate (Lactic Acid level) 0.8 mmol/L (0.5-2.2)
[2020-04-25 06:12] LABS: NT Pro B Type Natriuretic Pept 552 pg/mL (0-125); Procalcitonin 0.08 ng/mL (0-0.5)
[2020-04-25 06:32] LABS: Creatine Phosphokinase 42 U/L (26-192)
--- NOTE | 2020-04-25 07:17 | PC.NURSE ---
ASSUMING CARE Patient on 2L NC and resting in bed quietly. Patient is alert and oriented x 4, cheema catheter patent and draining. No needs at this time.
--- NOTE | 2020-04-25 07:24 | PC.NURSE ---
GAS/INSOMNIA Patient complaining of gas pain in abdomen and wanting something to help her sleep. Dr. Oneil called and notified. GI cocktail ordered and PRN bedtime 5 mg ambien ordered.
--- NOTE | 2020-04-25 07:25 | PC.NURSE ---
SHIFT SUMMARY Patient has been alert and oriented x 4. 800 mL urine output. GI cocktail and ambien given once for insomnia and gas. Patient slept all night and denies any needs at this time.
[2020-04-25 07:57] LABS: Basophils % 0.3 %; Eosinophils % 0.7 %; Hematocrit 40.5 % (37.0-47.0); Hemoglobin 12.8 g/dL (11.5-15.3); Lymphocytes # 0.6 10^3/uL (0.8-4.8); Lymphocytes % 18.8 %; Mean Corpuscular HGB Conc 31.6 g/dL (30.0-36.0); Mean Corpuscular Hemoglobin 28.4 pg (28.0-34.0); Monocytes # 0.1 10^3/uL (0.2-0.9); Monocytes % 2.6 %; Neutrophils # 2.34 10^3/uL (1.8-7.7); Neutrophils % 77.3 %; Nucleated Red Blood Cells % 0 %; Platelet Count 172 10^3/cmm (130-400); Red Cell Distribution Width 12.6 % (12.1-15.1)
[2020-04-25 08:19] LABS: Alanine Aminotransferase 17 U/L (0-33); Albumin Level 3.6 g/dL (3.5-5.2); Alkaline Phosphatase 47 IU/L (35-105); Anion Gap 9.8 (5-19); Aspartate Amino Transferase 20 U/L (0-32); Blood Urea Nitrogen 23 mg/dL (6-20); Calcium 8.9 mg/dL (8.5-10.5); Chloride 87 mmol/L (98-107); Globulin 2.4 g/dL (1.3-4.6); Glomerular Filtration Rate 64.3 mL/min (90-130); Glucose 181 mg/dL (65-115); Osmolality Calculated 290 mOsm/kg (285-295); Potassium 3.8 mmol/L (3.5-5.1); Sodium 136 mmol/L (136-145); Total Bilirubin 0.4 mg/dL (0.15-1.2)
[2020-04-25] MEDS: aspirin 81 mg EC Tablet PO (08:27)
[2020-04-25] MEDS: sulfamethoxazole-trimeth DS 160-800 mg Tablet 0.5 TAB PO (08:27)
[2020-04-25] MEDS: carvedilol 3.125 mg Tablet PO ×2 (08:27→18:21)
[2020-04-25] MEDS: pantoprazole DR 40 mg Tablet PO (08:28)
[2020-04-25] MEDS: montelukast sodium 10 mg Tablet PO (08:28)
[2020-04-25] MEDS: NON-FORMULARY MEDICATION (Bictegrav-Emtricit-Tenofov Ala [Biktarvy] 50-200-25 mg tablet) 1 EACH PO (08:28)
[2020-04-25] MEDS: ipratropium-albuterol 3 mL Neb INHALATION ×4 (08:30→20:17)
[2020-04-25] MEDS: acetaZOLAMIDE 250 mg Tablet PO ×2 (08:39→18:21)
[2020-04-25 08:46] LABS: Carbon Dioxide 43 mmol/L (22-29)
--- NOTE | 2020-04-25 11:14 | PM.PN ---
Subjective Subjective: Interval history: Patient was examined this morning, she tells me that she is feeling much better, shortness of breath has improved, she did not wear the BiPAP overnight because nobody told her to wear it, overall she tells me that she is doing better, Vitals/I&O/Wt Last Vital Signs Temp 97.9 F 04/25/20 08:00 Pulse 103 H 04/25/20 10:00 Resp 33 H 04/25/20 10:00 BP 133/83 04/25/20 10:00 Pulse Ox 96 04/25/20 10:00 04/24/20 04/25/20 04/25/20 22:59 06:59 14:59 Intake Total 480 / 720 240 / 960 250 / 250 Output Total 900 / 900 800 / 1700 Balance -420 / -180 -560 / -740 250 / 250 Physical Exam Const: COMMON NORMALS: no acute distress and patient oriented x3 HENMT: COMMON NORMALS: normocephalic HEAD & SCALP: normocephalic Neck/C-Spine: COMMON NORMALS: no JVD Resp: COMMON NORMALS: normal respiratory effort, No retractions, No use of accessory muscles and clear to auscultation bilaterally AUSCULTATION: clear to auscultation bilaterally Cardio: COMMON NORMALS: no JVD, regular rate, regular rhythm, S1 normal heart sound present and S2 normal heart sound present RATE: regular rate RHYTHM: regular rhythm HEART SOUNDS: S1 normal heart sound present and S2 normal heart sound present GI: COMMON NORMALS: Normal to inspection, nondistended, normoactive bowel sounds present, Soft to palpation, non-tender, No hepatosplenomegaly present, no masses and no bruits PALPATION: Yes Soft to palpation and Yes No hepatosplenomegaly present Extremity: COMMON NORMALS: capillary refill normal, no clubbing, cyanosis or edema, no calf tenderness and no pedal edema Neuro: COMMON NORMALS: patient oriented x3 Psych: COMMON NORMALS: mental status grossly normal Data : 04/25/20 05:08 04/25/20 05:08 Micro: Microbiology 04/23/20 19:28 Blood Culture - Preliminary Blood NEGATIVE TO DATE 04/23/20 19:32 Blood Culture - Preliminary Blood NEGATIVE TO DATE A&P Assessment and plan (1) Acute hypercapnic respiratory failure: -Likely secondary to COPD -Rapid Covid negative, Covid PCR negative -Currently tolerating BiPAP well, PCO2 improved in the 60s, pH 7.5, bicarb 47.4 -CT angio: 1. Pulmonary arteries appear unremarkable. No evidence of pulmonary embolism. 2. No evidence of thoracic aortic aneurysm or dissection. 3. Diffuse centrilobular emphysema. No pulmonary infiltrates are noted. 4. No cardiomegaly. Thickening of the left ventricular myocardium suggesting systemic hypertension. Plan: -Move out of ICU to general medical floors -Patient needs to use BiPAP during the night -Diamox 250 twice daily for pH of 7.5, increase bicarb -Lovenox for DVT prophylaxis -Full code -Solu-Medrol 60 every 8 -Levaquin for antibiotic coverage -Advair, albuterol, Spiriva, ipratropium -Sputum cultures, blood cultures, urine bacterial antigens, so far negative -Monitor respiratory status closely -Patient will clinically benefit from noninvasive mechanical ventilation such as a BiPAP given her chronic respiratory failure, COPD, will order overnight pulse ox -Echocardiogram shows grade 2 out of 4 diastolic dysfunction, hold off on Lasix therapy for now as patient does not look fluid overloaded Status: Acute (2) GERD (gastroesophageal reflux disease): Status: Acute (3) COPD (chronic obstructive pulmonary disease): Status: Acute (4) HIV (human immunodeficiency virus infection): -Continue Biktarvy -She was supposed to have blood work done for HIV, presumably CD4 count, she will find out which is a blood work she has to get done, will order it here Status: Acute (5) Protein calorie malnutrition: Severe protein calorie malnutrition, BMI 13, protein shakes 2 times daily with meals Status: Acute (6) NSTEMI (non-ST elevated myocardial infarction): -Baseline troponin 36, 6-hour 24.699, 6-hour delta 11 -No complaints of chest pain -EKG no acute ST-T wave changes -Likely type II NSTEMI, supply demand ischemia from respiratory failure -Aspirin, statin, beta-antoine -Cardiac echocardiogram shows EF of 60%, grade 2 diastolic dysfunction -Telemetry monitoring -Monitor for chest pain Status: Acute Attestations Medical Necessity Statement*: Patient requires hospitalization for acute hypercapnic respiratory failure, alkalosis, Coding Level of Care Code Acute Lead Web Application Developer for [facility] Diagnoses Acute hypercapnic respiratory failure J96.02 GERD (gastroesophageal reflux disease) K21.9 COPD (chronic obstructive pulmonary disease) J44.9 HIV (human immunodeficiency virus infection) B20 Protein calorie malnutrition E46 NSTEMI (non-ST elevated myocardial infarction) I21.4
--- NOTE | 2020-04-25 13:02 | PC.CHAP ---
Pastoral Care Encounter/Spiritual Assessment Type of Contact [] Declined pathology technician visit [] Patient/Family/Request visit [] Outpatient visit [] Follow-up visit [] Physician referral [] Code/Alert [xx] Routine visit [] Staff referral [] Actively dying [] Patient sleeping [] Family support [] [] Out of room [] Palliative care [] [] Receiving care in room [] Pre-surgical visit [] Trauma [] Long length of stay [xx] ICU visit [] Other: Relational/Emotional Strength [xx] Patient feels connected with others/family/visitors/staff [] Distress [] Loneliness/isolation [] Abandonment Spirituality of Patient [xx] Person of Thea [] Attends Scientology of their Thea [xx] Believes in Prayer [] Reads Bible or Spiritism materials [] There are Spiritual issues to be addressed [employer] Interventions [xx] Prayer [xx] Active listening [xx] Non-anxious presence [] Spiritual/emotional support [] Crisis/trauma care [] Spiritual counseling [] Bereavement support [] Provided bereavement packet [xx] Provided Bible/devotional materials [] Provided toy/stuffed animal, coloring book to patient or family member [] Provided Communion [] Anointing/[place] [] Salvation [xx] Completed spiritual assessment [] Other: Impact on Illness or Injury [] Angry [] Fearful [] Anxious [] Often cries [] Exhaustion [] Unable to work [] Unable to attend anabaptist [] Unable to walk/stand [] Unable to read [] Unable to drive [] Unable to eat/drink [] Unable to sleep [] Unable to be with family [] Patient intubated [] Other: Summary Patient in good spirits, improving enough medically to be transferred from ICU to Med/Surg floor later today. Patient stated God got a hold of her not long ago, gave her a new life and a second chance and another chance. Time spent with patient 7 minutes
[2020-04-25 14:14] LABS: Hepatitis C Virus Antibody Non-Reactive (Nonreactive)
[2020-04-25 14:16] LABS: Chol HDL Ratio 4.22 mg/dL (0.0-4.40); Cholesterol 194 mg/dL (0-200); HDL Cholesterol 46 mg/dL (60-100); LDL Cholesterol Calculated 126 mg/dL (50-129); LDL HDL Ratio 2.74 RATIO (0.00-3.22); Triglycerides 111 mg/dL (0-150)
[2020-04-25 14:23] LABS: Rapid Plasma Reagin Syphilis Nonreactive (Nonreactive)
--- NOTE | 2020-04-25 15:22 | PC.RESP ---
Smoking Cessation and Pulmonary Rehab information sent to patient.
[2020-04-25] MEDS: enoxaparin 40 mg/0.4 mL Syringe SUBCUT (16:19)
[2020-04-25] MEDS: levofloxacin-dextrose 5 % 750 MG/150 ML PREMIX 100 MG IV (18:21)
[2020-04-25] MEDS: atorvastatin 40 mg Tablet PO (21:25)
[2020-04-25] MEDS: acetaminophen 325 mg Tablet 650 MG PO (21:30)
[2020-04-26] VITALS (10 sets, daily range): BP systolic 128–166; BP diastolic 72–101; PULSE 97–122; RESP 18–22; TEMP 36.9–37.3; O2SAT 93–97
[2020-04-26 04:53] LABS: Hematocrit 38.3 % (37.0-47.0); Hemoglobin 12.2 g/dL (11.5-15.3); Lymphocytes # 0.4 10^3/uL (0.8-4.8); Lymphocytes % 7.5 %; Mean Corpuscular HGB Conc 31.9 g/dL (30.0-36.0); Mean Corpuscular Hemoglobin 28.6 pg (28.0-34.0); Mean Corpuscular Volume 89.9 fL (81-99); Mean Platelet Volume 10.4 fL (7.4-10.4); Monocytes # 0.1 10^3/uL (0.2-0.9); Monocytes % 1.8 %; Neutrophils # 4.44 10^3/uL (1.8-7.7); Neutrophils % 89.7 %; Nucleated Red Blood Cells % 0 %; Platelet Count 175 10^3/cmm (130-400); Red Blood Count 4.26 10^6/uL (4.1-5.3); Red Cell Distribution Width 12.5 % (12.1-15.1)
[2020-04-26 05:09] LABS: ABG PCO2 59.7 mmHg (35-45); ABG PH Result 7.37 (7.35-7.45); Arterial Blood Gas Hematocrit 37.5 % (37-47); Base Excess ABG 7.5 mmol/L (-2.0-2.0); Blood Gas Sample Site Brachial, left; Blood Gas Sample Type Arterial; HCO3 ABG 34.6 mmol/L (22-26); Oxygen Device NC; PO2 ABG 93.1 mmHg (80.0-100.0)
[2020-04-26 05:11] LABS: INR 1.03 (0.8-1.2)
[2020-04-26 05:14] LABS: Alanine Aminotransferase 17 U/L (0-33); Albumin Level 3.7 g/dL (3.5-5.2); Alkaline Phosphatase 43 IU/L (35-105); Anion Gap 12.6 (5-19); Aspartate Amino Transferase 17 U/L (0-32); Blood Urea Nitrogen 25 mg/dL (6-20); Calcium 8.9 mg/dL (8.5-10.5); Carbon Dioxide 33 mmol/L (22-29); Chloride 93 mmol/L (98-107); Globulin 2.4 g/dL (1.3-4.6); Glomerular Filtration Rate 46.1 mL/min (90-130); Glucose 164 mg/dL (65-115); Osmolality Calculated 288 mOsm/kg (285-295); Potassium 3.6 mmol/L (3.5-5.1); Sodium 135 mmol/L (136-145); Total Bilirubin 0.3 mg/dL (0.15-1.2); Total Protein 6.1 g/dL (6.6-8.7)
[2020-04-26 05:18] LABS: Lactate (Lactic Acid level) 1.1 mmol/L (0.5-2.2)
[2020-04-26 05:19] LABS: C Reactive Protein 0.4 mg/L (0.0-4.9); Magnesium 2.2 mg/dL (1.7-2.3); Phosphorus 3.2 mg/dL (2.5-4.5)
[2020-04-26 05:27] LABS: NT Pro B Type Natriuretic Pept 710 pg/mL (0-125); Procalcitonin 0.07 ng/mL (0-0.5)
[2020-04-26 05:39] LABS: Creatine Phosphokinase 35 U/L (26-192)
[2020-04-26] MEDS: ipratropium-albuterol 3 mL Neb INHALATION ×2 (08:10→11:32)
[2020-04-26] MEDS: carvedilol 3.125 mg Tablet PO (09:07)
[2020-04-26] MEDS: pantoprazole DR 40 mg Tablet PO (09:07)
[2020-04-26] MEDS: aspirin 81 mg EC Tablet PO (09:07)
[2020-04-26] MEDS: montelukast sodium 10 mg Tablet PO (09:07)
[2020-04-26] MEDS: NON-FORMULARY MEDICATION (Bictegrav-Emtricit-Tenofov Ala [Biktarvy] 50-200-25 mg tablet) 1 EACH PO (09:07)
--- NOTE | 2020-04-26 10:17 | P.DS_ITS ---
Discharge Providers Date of Admission: 04/23/20 13:16 Date of Discharge: April 26, 2020 Attending Provider at Admission: Nba Wagner MD Attending Provider at Discharge: Nba Wagner MD Diagnoses at Discharge Discharge Diagnosis (1) Acute hypercapnic respiratory failure: Status: Acute (2) GERD (gastroesophageal reflux disease): Status: Acute (3) COPD (chronic obstructive pulmonary disease): Status: Acute (4) HIV (human immunodeficiency virus infection): Status: Acute (5) Protein calorie malnutrition: Status: Acute (6) NSTEMI (non-ST elevated myocardial infarction): Status: Acute Reason for Visit Reason for Visit: SOB, CHEST PAIN Hospital Course Hospital Course This is a 59-year-old female with a past medical history of severe COPD, 2 L oxygen dependent, smoker, history of HIV on Biktarvy, who presents to [facility] due to complaints of shortness of breath Patient was admitted to [facility] for acute on chronic hypercapnic respiratory failure secondary to COPD, admitted to the ICU due to severe hypercapnia, started on BiPAP, steroid therapy, inhaler therapy, antibiotics and clinically monitored. Patient is Covid PCR and rapid Covid were negative. Blood cultures unremarkable. Patient tolerated BiPAP well, her PCO2 gradually decreased, PCO2 on discharge is 59. She was moved to the general medical floors, and clinically monitored, she clinically improved, did have some wheezing on the day of discharge, was adamant about going home, I have discharg ed her on a long steroid taper, Levaquin, Advair, Spiriva, albuterol, and to follow-up with pulmonary as outpatient. Given patient's chronic hypercapnic respiratory failure secondary to severe COPD, and her BMI of 13, I have recommended a home BiPAP machine, to help with her hypercarbia, to decrease hospital admission, decrease risk of mechanical ventilation. She is qualified for the BiPAP, and should be set up for her by early next week. Patient is to follow with pulmonary as outpatient. Patient also had elevated troponins upon admission, no acute ST-T wave changes on EKG, echocardiogram showed grade 2 out of 4 diastolic dysfunction, likely supply demand ischemia from respiratory failure, discharged on aspirin, statin. Patient was advised if she were to have chest pain go to the emergency room For her HIV, patient has not followed up with her infectious disease doctor in over few months, the AIDS project recommended blood work, which we have ordered, patient should follow-up with infectious disease doctor in [place] in the next month. Physical Exam Const: COMMON NORMALS: no acute distress and patient oriented x3 HENMT: COMMON NORMALS: normocephalic HEAD & SCALP: normocephalic Neck/C-Spine: COMMON NORMALS: no JVD Resp: COMMON NORMALS: normal respiratory effort, No retractions and No use of accessory muscles AUSCULTATION: wheezes Cardio: COMMON NORMALS: no JVD, regular rate, regular rhythm, S1 normal heart sound present and S2 normal heart sound present RATE: regular rate RHYTHM: regular rhythm HEART SOUNDS: S1 normal heart sound present and S2 normal heart sound present GI: COMMON NORMALS: Normal to inspection, nondistended, normoactive bowel sounds present, Soft to palpation, non-tender, No hepatosplenomegaly present, no masses and no bruits PALPATION: Yes Soft to palpation and Yes No hepatosplenomegaly present Extremity: COMMON NORMALS: capillary refill normal, no clubbing, cyanosis or edema, no calf tenderness and no pedal edema Neuro: COMMON NORMALS: patient oriented x3 Psych: COMMON NORMALS: mental status grossly normal Discharge Data Data Completed and Pending: Completed Studies During Hospitalization Category Date Time Status CT angio chest PE protcl [id number] Urge nt Cat Scan 04/23/20 15:37 Completed XR chest 1V wilda ble [id number] Routine Exams 04/24/20 07:00 Completed XR chest 1V wilda ble [id number] Stat Exams 04/23/20 11:23 Completed CV echo complete* [id number] Routine Ultrasound 04/24/20 06:00 Completed Pending at discharge Category Date Time Status Arterial Blood Ga s W/O Coox Stat Lab 04/23/20 18:00 Ordered Blood Culture Rou patricia Lab 04/23/20 19:32 Results Complete Blood Co unt w/Auto AM LABS Lab 04/27/20 04:00 Ordered Complete Blood Co unt w/Auto AM LABS Lab 04/28/20 04:00 Ordered Comprehensive Met abolic Panel AM LA BS Lab 04/27/20 04:00 Ordered Comprehensive Met abolic Panel AM LA BS Lab 04/28/20 04:00 Ordered Hepatitis C RNA V iral Load Qnt Rout ine Lab 04/25/20 13:30 Received Miscellaneous Priyanka t Routine Lab 04/25/20 13:30 Received Miscellaneous Priyanka t Routine Lab 04/25/20 13:30 Received Labs from last 24 hours 04/26/20 04/26/20 04/26/20 05:05 04:22 04:22 WBC 5.0 RBC 4.26 Hgb 12.2 Hct 38.3 MCV 89.9 MCH 28.6 MCHC 31.9 RDW 12.5 Plt Count 175 MPV 10.4 Neut % (Auto) 89.7 Lymph % (Auto) 7.5 Isabela % (Auto) 1.8 Eos % (Auto) 0.0 Baso % (Auto) 0.0 Neut # (Auto) 4.44 Lymph # (Auto) 0.4 L Isabela # (Auto) 0.1 L Eos # (Auto) 0.0 Baso # (Auto) 0.0 Nucleated RBC % (a uto) 0 Nucleated RBCs # 0.0 PT INR Specimen Type Arterial Sample Site Brachial, left ABG pH 7.37 ABG pCO2 59.7 H ABG pO2 93.1 ABG HCO3 34.6 H ABG Base Excess 7.5 H Adrian Test N/a Hematocrit 37.5 O2 Delivery Device Nc O2 Liters/Min 2.0 Electrician Third ID Hinja Sodium 135 L Potassium 3.6 Chloride 93 L Carbon Dioxide 33 H Anion Gap 12.6 BUN 25 H Creatinine 1.2 H GFR Calculation 46.1 L Glucose 164 H Calculated Osmolal ity 288 Lactate Calcium 8.9 Phosphorus Magnesium Total Bilirubin 0.3 AST 17 ALT 17 Alkaline Phosphata se 43 Creatine Kinase C-Reactive Protein NT-Pro-B Natriuret Pep Total Protein 6.1 L Albumin 3.7 Globulin 2.4 Triglycerides Cholesterol LDL Cholesterol, C alc HDL Cholesterol LDL/HDL Ratio Cholesterol/HDL Ra jannet Procalcitonin RPR Hepatitis C Antibo dy HCV RNA (PCR) IUs/ ml HCV RNA (PCR) IU l og10 Misc Test Referenc e 04/26/20 04/26/20 04/26/20 04:22 04:22 04:22 WBC RBC Hgb Hct MCV MCH MCHC RDW Plt Count MPV Neut % (Auto) Lymph % (Auto) Isabela % (Auto) Eos % (Auto) Baso % (Auto) Neut # (Auto) Lymph # (Auto) Isabela # (Auto) Eos # (Auto) Baso # (Auto) Nucleated RBC % (a uto) Nucleated RBCs # PT INR Specimen Type Sample Site ABG pH ABG pCO2 ABG pO2 ABG HCO3 ABG Base Excess Adrian Test Hematocrit O2 Delivery Device O2 Liters/Min Electrician Third ID Sodium Potassium Chloride Carbon Dioxide Anion Gap BUN Creatinine GFR Calculation Glucose Calculated Osmolal ity Lactate 1.1 Calcium Phosphorus 3.2 Magnesium 2.2 Total Bilirubin AST ALT Alkaline Phosphata se Creatine Kinase 35 C-Reactive Protein 0.4 NT-Pro-B Natriuret Pep 710 H Total Protein Albumin Globulin Triglycerides Cholesterol LDL Cholesterol, C alc HDL Cholesterol LDL/HDL Ratio Cholesterol/HDL Ra jannet Procalcitonin 0.07 RPR Hepatitis C Antibo dy HCV RNA (PCR) IUs/ ml HCV RNA (PCR) IU l og10 Misc Test Referenc e 04/26/20 04/25/20 04/25/20 04:22 13:30 13:30 WBC RBC Hgb Hct MCV MCH MCHC RDW Plt Count MPV Neut % (Auto) Lymph % (Auto) Isabela % (Auto) Eos % (Auto) Baso % (Auto) Neut # (Auto) Lymph # (Auto) Isabela # (Auto) Eos # (Auto) Baso # (Auto) Nucleated RBC % (a uto) Nucleated RBCs # PT 13.80 INR 1.03 Specimen Type Sample Site ABG pH ABG pCO2 ABG pO2 ABG HCO3 ABG Base Excess Adrian Test Hematocrit O2 Delivery Device O2 Liters/Min Electrician Third ID Sodium Potassium Chloride Carbon Dioxide Anion Gap BUN Creatinine GFR Calculation Glucose Calculated Osmolal ity Lactate Calcium Phosphorus Magnesium Total Bilirubin AST ALT Alkaline Phosphata se Creatine Kinase C-Reactive Protein NT-Pro-B Natriuret Pep Total Protein Albumin Globulin Triglycerides Cholesterol LDL Cholesterol, C alc HDL Cholesterol LDL/HDL Ratio Cholesterol/HDL Ra jannet Procalcitonin RPR Hepatitis C Antibo dy HCV RNA (PCR) IUs/ ml HCV RNA (PCR) IU l og10 Misc Test Referenc e Pending Pending 04/25/20 04/25/20 04/25/20 13:30 05:08 05:08 WBC RBC Hgb Hct MCV MCH MCHC RDW Plt Count MPV Neut % (Auto) Lymph % (Auto) Isabela % (Auto) Eos % (Auto) Baso % (Auto) Neut # (Auto) Lymph # (Auto) Isabela # (Auto) Eos # (Auto) Baso # (Auto) Nucleated RBC % (a uto) Nucleated RBCs # PT INR Specimen Type Sample Site ABG pH ABG pCO2 ABG pO2 ABG HCO3 ABG Base Excess Adrian Test Hematocrit O2 Delivery Device O2 Liters/Min Electrician Third ID Sodium Potassium Chloride Carbon Dioxide Anion Gap BUN Creatinine GFR Calculation Glucose Calculated Osmolal ity Lactate Calcium Phosphorus Magnesium Total Bilirubin AST ALT Alkaline Phosphata se Creatine Kinase C-Reactive Protein NT-Pro-B Natriuret Pep Total Protein Albumin Globulin Triglycerides 111 Cholesterol 194 LDL Cholesterol, C alc 126 HDL Cholesterol 46 L LDL/HDL Ratio 2.74 Cholesterol/HDL Ra jannet 4.22 Procalcitonin RPR Nonreactive Hepatitis C Antibo dy Non-reactive HCV RNA (PCR) IUs/ ml Pending HCV RNA (PCR) IU l og10 Pending Misc Test Referenc e Vitals: Last Vital Signs Temp 99.2 F 04/26/20 08:00 Pulse 109 H 04/26/20 08:16 Resp 22 H 04/26/20 08:13 BP 159/87 04/26/20 08:00 Pulse Ox 94 04/26/20 08:13 Discharge Plan Discharge Patient Disposition: Home Condition: Stable Prescriptions: New prednisone 10 mg tablet See Rx Instructions .ROUTE .COMPLEX Qty: 105 RF: 0 pantoprazole 40 mg Tablet,Delayed Release (Dr/Ec) 40 mg PO DAILY 30 Days Qty: 30 RF: 0 carvedilol 3.125 mg Tablet 3.125 mg PO BID 30 Days Qty: 60 RF: 0 aspirin 81 mg Tablet,Delayed Release (Dr/Ec) 81 mg PO DAILY 30 Days Qty: 30 RF: 0 atorvastatin 40 mg Tablet 40 mg PO BEDTIME 30 Days Qty: 30 RF: 0 levofloxacin 750 mg tablet 750 mg PO DAILY 4 Days Qty: 4 RF: 0 Continued albuterol sulfate 1.25 mg/3 mL solution for nebulization 2.5 mg INHALATION QID PRN (Reason: Shortness Of Breath) RF: 0 budesonide-formoterol [Symbicort] 160-4.5 mcg/actuation HFA aerosol inhaler 2 puff INHALATION BID RF: 0 Spiriva Respimat 1.25 mcg/actuation mist 2 puff INHALATION DAILY RF: 0 sulfamethoxazole-trimethoprim [Bactrim] 400-80 mg tablet See Rx Instructions .ROUTE .COMPLEX RF: 0 montelukast [Singulair] 10 mg tablet 10 mg PO DAILY RF: 0 albuterol sulfate [ProAir HFA] 90 mcg/actuation HFA aerosol inhaler 2 puff INHALATION Q6H PRN (Reason: Shortness Of Breath) RF: 0 ipratropium-albuterol 0.5 mg-3 mg(2.5 mg base)/3 mL Solution For Nebulization 3 ml INHALATION QID PRN (Reason: Shortness Of Breath) RF: 0 nicotine (polacrilex) 2 mg gum See Rx Instructions .ROUTE .COMPLEX RF: 0 Biktarvy 50-200-25 mg tablet 1 tab PO DAILY RF: 0 Discontinued prednisone 20 mg tablet 20 mg PO DAILY 10 Days Qty: 10 RF: 0 Discharge Orders: Discharge Order (Routine); Ordered 04/26/20 Ordered By: Nba Wagner Referrals: Yamilex Bearden MD [Physician] - 1 week Discharge Diet: Cardiac Discharge Activity: Resume usual activity Activity Restrictions/Additional Instructions: -Take prednisone taper as prescribed, and Levaquin as prescribed -Please hydrate well, drink plenty of electrolyte balance fluids -Hold Bactrim until you finish the Levaquin, then resume -Advair, Spiriva, albuterol -We have ordered BiPAP, we should find out by Tuesday when it will be delivered to you -Follow-up with pulmonary in 1 week Discharge Attestations Time Spent in Discharge Care*: greater than 30 min Quality Metrics Clinical Quality Measures During this hospital stay, did patient experience: None Coding Level of Care Code Acute Platform Operations Director for [place] [facility] Diagnoses Acute hypercapnic respiratory failure J96.02 GERD (gastroesophageal reflux disease) K21.9 COPD (chronic obstructive pulmonary disease) J44.9 HIV (human immunodeficiency virus infection) B20 Protein calorie malnutrition E46 NSTEMI (non-ST elevated myocardial infarction) I21.4
[2020-04-28 19:38] LABS: HEP C RNA Viral Load Quant <1.18 NOT DETECTED Log IU/mL (NOT DETECTED); HEP C RNA Viral Load Quant <15 NOT DETECTED IU/mL (NOT DETECTED)
== END 2020-04-26 12:30 | disposition home or self-care (01) | DRG 189 ==
LOC: ER 12:08 → ICU 14:18 → MEDSURG 04-25 13:41
PROVIDERS: Admitting Provider Family Medicine; Emergency Provider Family Medicine; Visit Provider Family Medicine
DX: J96.02 Acute respiratory failure with hypercapnia (principal); I21.A1 Myocardial infarction type 2; B20 Human immunodeficiency virus [HIV] disease; E46 Unspecified protein-calorie malnutrition; Z68.1 Body mass index [BMI] 19.9 or less, adult; E87.3 Alkalosis; J44.9 Chronic obstructive pulmonary disease, unspecified; K21.9 Gastro-esophageal reflux disease without esophagitis; Z99.81 Dependence on supplemental oxygen; F17.210 Nicotine dependence, cigarettes, uncomplicated; Z20.822 Contact with and (suspected) exposure to COVID-19
CPT/HCPCS: 12345; 36415; 36600; 71045; 71275; 80051; 80053; 80061; 81001; 82330; 82550; 82803; 82805; 83036; 83605; 83735; 83880; 84100; 84145; 84443; 84484; 85025; 85610; 86140; 86361; 86592; 86803; 87040; 87426; 87522; 87536; 87635; 93005; 93306; 94640; 94660; 94762; 96372; 97161; 97165; 99282; J1650; J1940; J1956; J2060; J2920; J2930; Q9967

== ENCOUNTER 2020-05-04 17:16 | Inpatient (IN) | payer MEDICAID, SELFPAY ==
[2020-05-04] VITALS (22 sets, daily range): BP systolic 120–149; BP diastolic 66–84; PULSE 97–123; RESP 15–46; TEMP 36.7–36.9; O2SAT 92–100; BMI 15.0
--- NOTE | 2020-05-04 17:24 | XRR_ITS ---
PROCEDURE INFORMATION: Exam: XR Chest, 1 View Exam date and time: 05/04/2020 5:25 PM Age: 59 years old Clinical indication: Shortness of breath; Additional info: SOB TECHNIQUE: Imaging protocol: XR of the chest Views: 1 view. COMPARISON: CR XR chest 1V portable [id number] 04/24/2020 5:08 AM FINDINGS: Lungs: Unremarkable. No consolidation. Pleural spaces: Unremarkable. No pleural effusion. No pneumothorax. Heart/Mediastinum: Unremarkable. No cardiomegaly. Bones/joints: Unremarkable. Soft tissues: 12 mm round opacity overlying the left lung base may represent a nipple shadow. There are minimal hazy opacities overlying the left lung base inferior to this. XR/XR chest 1V portable [id number] IMPRESSION: 12 mm round opacity overlying the left lung base may represent a nipple shadow. There are minimal hazy opacities overlying the left lung base inferior to this. Consider PA and lateral views versus CT scan for further evaluation as clinically warranted.
--- NOTE | 2020-05-04 17:26 | ECG_ITS ---
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
[2020-05-04] MEDS: ipratropium-albuterol 3 mL Neb INHALATION (18:16)
[2020-05-04 18:29] LABS: ABG PH Result 7.32 (7.35-7.45); Arterial Blood Gas Hematocrit 41.3 % (37-47); Base Excess ABG 19.7 mmol/L (-2.0-2.0); Blood Gas LPM 1.5 %; Blood Gas Operator Identificat glc; Blood Gas Sample Site Brachial, left; Blood Gas Sample Type Arterial; Carboxyhemoglobin 1.9 %THgb (0.4-20.1); HCO3 ABG 51.2 mmol/L (22-26); HGB O2 Sat 86.4 % (95-100); Methemoglobin 0.9 % (0.4-1.5); Oxygen Device NC; Total Hemoglobin 13.5 g/dL (12-16)
[2020-05-04 18:35] LABS: Basophils % 0.2 %; Eosinophils # 0.1 10^3/uL (0.0-0.8); Eosinophils % 0.9 %; Hematocrit 45.9 % (37.0-47.0); Hemoglobin 13.9 g/dL (11.5-15.3); Lymphocytes # 0.5 10^3/uL (0.8-4.8); Lymphocytes % 7.4 %; Mean Corpuscular HGB Conc 30.3 g/dL (30.0-36.0); Mean Corpuscular Hemoglobin 28.7 pg (28.0-34.0); Mean Corpuscular Volume 94.8 fL (81-99); Mean Platelet Volume 9.7 fL (7.4-10.4); Monocytes # 0.1 10^3/uL (0.2-0.9); Neutrophils % 89.2 %; Nucleated Red Blood Cells % 0 %; Platelet Count 231 10^3/cmm (130-400); Red Blood Count 4.84 10^6/uL (4.1-5.3); Red Cell Distribution Width 12.6 % (12.1-15.1); White Blood Count 6.5 10^3/uL (4.0-10.0)
--- NOTE | 2020-05-04 18:37 | CTR_ITS ---
PROCEDURE INFORMATION: Exam: CT Angiography Chest With Contrast Exam date and time: 05/04/2020 6:46 PM Age: 59 years old Clinical indication: Shortness of breath; Patient HX: SOB w ble swelling; Additional info: Chest pain TECHNIQUE: Imaging protocol: Computed tomographic angiography of the chest with contrast. 3D rendering (Not supervised by radiologist): MIP and/or 3D reconstructed images were created by the technologist. Radiation optimization: All CT scans at this facility use at least one of these dose optimization techniques: automated exposure control; mA and/or kV adjustment per patient size (includes targeted exams where dose is matched to clinical indication); or iterative reconstruction. Contrast material: VISI 320; Contrast volume: 65 ml; Contrast route: INTRAVENOUS (IV); COMPARISON: CT angio chest PE protcl [id number] 04/23/2020 6:25 PM RADIATION DOSE METRICS: Total DLP (mGy-cm): 360.58 FINDINGS: Pulmonary arteries: Normal. No pulmonary emboli. Aorta: Unremarkable. No aortic aneurysm. No aortic dissection. Lungs: There are centrilobular emphysematous changes in the bilateral lungs. Pleural spaces: Unremarkable. No pneumothorax. No pleural effusion. Heart: Unremarkable. No cardiomegaly. No pericardial effusion. Lymph nodes: Unremarkable. No enlarged lymph nodes. Gallbladder and bile ducts: Prominent vasculature about the gallbladder fossa is unchanged from the prior CT scan. There is admixture of density in the suprahepatic IVC extending into the visualized hepatic veins. This is not well seen secondary to some artifact in the region. Bones/joints: Unremarkable. No acute fracture. Soft tissues: Unremarkable. CT/CT angio chest PE protcl [id number] IMPRESSION: 1. There are centrilobular emphysematous changes in the bilateral lungs. 2. No evidence for pulmonary embolus. 3. There is admixture of density in the suprahepatic IVC extending into the visualized hepatic veins. This is not optimally visualized however hepatic vein thrombosis cannot be excluded. 4. There is prominent vasculature at the gallbladder fossa. This can be seen with portal venous hypertension and is unchanged from the prior CT scan. Radiation Dose CTDIVOL = (mGy): DLP = 360.58 (mGy-cm)
[2020-05-04] MEDS: haloperidol inj 5 mg/mL INJ 1 mL 2 MG IVP (18:48)
[2020-05-04] MEDS: LORazepam 2 mg/mL INJ 1 mL 1 MG IVP (18:48)
[2020-05-04 18:51] LABS: Lactic Sepsis W/Reflex 1.1 mmol/L (0.5-2.2)
--- NOTE | 2020-05-04 18:51 | PC.NURSE ---
Patient refused her flu swab, attempted multiple times.
[2020-05-04 18:52] LABS: Troponin(5th) Baseline 32 ng/L (0-10)
[2020-05-04 19:00] LABS: Alanine Aminotransferase 21 U/L (0-33); Albumin Level 3.7 g/dL (3.5-5.2); Alkaline Phosphatase 47 IU/L (35-105); Anion Gap 7.5 (5-19); Aspartate Amino Transferase 23 U/L (0-32); Blood Urea Nitrogen 13 mg/dL (6-20); Calcium 8.9 mg/dL (8.5-10.5); Chloride 89 mmol/L (98-107); Glomerular Filtration Rate 85.9 mL/min (90-130); Glucose 190 mg/dL (65-115); NT Pro B Type Natriuretic Pept 893 pg/mL (0-125); Osmolality Calculated 291 mOsm/kg (285-295); Potassium 5.5 mmol/L (3.5-5.1); Sodium 138 mmol/L (136-145); Total Bilirubin 0.4 mg/dL (0.15-1.2); Total Protein 5.7 g/dL (6.6-8.7)
[2020-05-04 19:05] LABS: Carbon Dioxide 47 mmol/L (22-29)
--- NOTE | 2020-05-04 19:26 | ECG_ITS ---
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
[2020-05-04] MEDS: iodixanol 320 mg/mL 100mL Btl IV (19:38)
--- NOTE | 2020-05-04 20:09 | ED_ITS ---
HPI - SOB/Dyspnea General: Chief Complaint: Shortness of Breath/Dyspnea Stated Complaint: DIFF BREATHING, SWOLLEN BLE Time Seen by Provider: 05/04/20 18:20 History of Present Illness: HPI Narrative: 59-year-old female with severe COPD presents with significant shortness of breath. She denies any fever. She has a mild increased cough. No sputum. She notes her legs have been a bit swollen. She denies overt chest pain. MD elicited complaint: shortness of breath and cough Pertinent past history: COPD Onset (ago): hour(s) Timing: constant Severity: moderate Exacerbating factors: lying flat and coughing Relieving factors: nothing Known history of: COPD Associated symptoms: Reports cough, dizziness and orthopnea; Deny abdominal pain, chest pain, fever(s), palpitations, paresthesias, rash or vomiting Review of Systems Const: Denies: fever(s) Eyes: Denies: change in vision ENMT: Denies: odynophagia or sinus pain Card: Reports: orthopnea; Denies: chest pain or palpitations Resp: Reports: dyspnea, non-productive cough and wheezing; Denies: productive cough GI: Denies: abdominal pain or vomiting : Denies: dysuria or hematuria Musc: Denies: neck pain or joint warmth Skin/Breast: Denies: rash or erythema Neuro: Reports: dizziness; Denies: headache(s) or vertigo Psych: Reports: anxiety PFSH ED PFSH: Medical History COPD (chronic obstructive pulmonary disease) GERD (gastroesophageal reflux disease) Surgical History H/O laparoscopy Family History Mother COPD (chronic obstructive pulmonary disease) Father CAD (coronary artery disease) Social History Smoking and tobacco status: current every day smoker cigarettes Years cigarettes smoked: 50 [ Other cigarette details: Hx of 1 PPD x 15 Years ] Second hand smoke exposure: Yes Smoking risk assessment/counseling performed?: Yes Alcohol intake: never Counseling given: No Counseling given: Yes Lives independently: Yes Household members: none Marital status: / Current occupational status: disabled History of recent travel: No Current gender identity: Female Physical Exam Const: GENERAL APPEARANCE: well developed ORIENTATION/CONSCIOUSNESS: Yes oriented to person, Yes oriented to place and Yes oriented to time HENMT: COMMON NORMALS: normocephalic, external ears normal and Normal external nose present HEAD & SCALP: normocephalic FACE & SINUS: normal facial exam NOSE: Normal external nose present and No nasal discharge present EXTERNAL EAR: Yes external ears normal Eye: COMMON NORMALS: Equal, round and reactive pupils present, EOMs intact bilaterally and conjunctivae normal EYELID: eyelids normal CONJUNCTIVA: Yes conjunctivae normal PUPIL: Yes Equal, round and reactive pupils present Neck/C-Spine: GENERAL: No tracheal deviation Chest: COMMONS NORMALS: normal inspection of the chest CHEST: No tenderness Resp: EFFORT & INSPECTION: Yes tachypneic, Yes respiratory distress, No retractions, No uses accessory muscles and No tracheal deviation AUSCULTATION: no rhonchi, no wheezes and diminished lung sounds Cardio: COMMON NORMALS: regular rate and regular rhythm RATE: regular rate RHYTHM: regular rhythm HEART SOUNDS: no murmurs PERIPHERAL PULSES: radial pulses present GI: INSPECTION: No abdominal distension AUSCULTATION: No Hyperactive bowel sounds present and No Hypoactive bowel sounds present PALPATION: No Guarding due to palpation present (GI) and No Rigid due to palpation PERCUSSION: no dullness to percussion and no tympanic to percussion Neuro: SENSORIUM/ORIENTATION: Yes oriented to person, Yes oriented to place and Yes oriented to time Psych: COMMON NORMALS: mental status grossly normal Skin: COMMON NORMALS: no rashes or lesions noted GENERAL SKIN EXAM: no rashes or lesions noted Course Vital Signs: Vital signs: Vital Signs Temperature 98.4 F 05/04/20 17:29 Pulse Rate 99 05/04/20 21:42 Respiratory Rate 22 H 05/04/20 18:23 Blood Pressure 121/77 05/04/20 21:42 Pulse Oximetry 97 05/04/20 21:42 MDM - SOB/Dyspnea MDM Narrative: Medical decision making narrative: 59-year-old female short of breath. History of COPD/emphysema. Hemoglobin 13.9. White blood cell count 6.5. Her potassium is mildly elevated at 5.5. The patient was given DuoNeb treatment which should help with this. The patient's bicarbonate level is obviously chronically elevated at 47 although this represents an increased. She has a mild elevation in her troponin as well. Her pH on blood gas is 7.32 with an impressive PCO2 of 98.8. There is obviously some compensation here given her bicarbonate level. Still yet, she has respiratory acidosis. She is however awake and talking. She was placed on BiPAP, after some Ativan because she is quite anxious on BiPAP. Repeat blood gas testing will be needed. CT of the chest is performed and shows no infiltrates. Rapid Covid is pending. Hosp italist is aware. Lab Data: Labs: Lab Results 05/04/20 05/04/20 05/04/20 Range/Units 18:19 18:26 18:26 WBC 6.5 (4.0-10.0) 10^3/ uL RBC 4.84 (4.1-5.3) 10^6/u L Hgb 13.9 (11.5-15.3) g/dL Hct 45.9 (37.0-47.0) % MCV 94.8 (81-99) fL MCH 28.7 (28.0-34.0) pg MCHC 30.3 (30.0-36.0) g/dL RDW 12.6 (12.1-15.1) % Plt Count 231 (130-400) 10^3/c mm MPV 9.7 (7.4-10.4) fL Neut % (Auto) 89.2 % Lymph % (Auto) 7.4 % Wayne % (Auto) 2.0 % Eos % (Auto) 0.9 % Baso % (Auto) 0.2 % Neut # (Auto) 5.80 (1.8-7.7) 10^3/u L Lymph # (Auto) 0.5 L (0.8-4.8) 10^3/u L Wayne # (Auto) 0.1 L (0.2-0.9) 10^3/u L Eos # (Auto) 0.1 (0.0-0.8) 10^3/u L Baso # (Auto) 0.0 (0.0-0.1) 10^3/u L Nucleated RBC % (a uto) 0 % Nucleated RBCs # 0.0 /100WBC Specimen Type Arterial Sample Site Brachial, left ABG pH 7.32 L (7.35-7.45) ABG pO2 66.0 L (80.0-100.0) mmH g ABG HCO3 51.2 H (22-26) mmol/L ABG Base Excess 19.7 H (-2.0-2.0) mmol/ L Adrian Test N/a Hematocrit 41.3 (37-47) % Hgb O2 Saturation 86.4 L (95-100) % Carboxyhemoglobin 1.9 (0.4-20.1) %THgb Methemoglobin 0.9 (0.4-1.5) % Total Hemoglobin 13.5 (12-16) g/dL O2 Delivery Device Nc O2 Liters/Min 1.5 % FiO2 26.0 % Patient Services Coordinator ID glc Sodium 138 (136-145) mmol/L Potassium 5.5 H (3.5-5.1) mmol/L Chloride 89 L (98-107) mmol/L Carbon Dioxide 47 H* (22-29) mmol/L Anion Gap 7.5 (5-19) BUN 13 (6-20) mg/dL Creatinine 0.7 (0.5-0.9) mg/dL GFR Calculation 85.9 L (90-130) mL/min Glucose 190 H (65-115) mg/dL Calculated Osmolal ity 291 (285-295) mOsm/k g Lactic Acid (0.5-2.2) mmol/L Calcium 8.9 (8.5-10.5) mg/dL Total Bilirubin 0.4 (0.15-1.2) mg/dL AST 23 (0-32) U/L ALT 21 (0-33) U/L Alkaline Phosphata se 47 (35-105) IU/L Troponin T Baselin e (0-10) ng/L Troponin T 120 Min [place] (0-10) ng/L Delta Troponin T (0-10) ABS# NT-Pro-B Natriuret Pep 893 H (0-125) pg/mL Total Protein 5.7 L (6.6-8.7) g/dL Albumin 3.7 (3.5-5.2) g/dL Globulin 2.0 (1.3-4.6) g/dL 05/04/20 05/04/20 05/04/20 Range/Units 18:26 18:26 20:17 WBC (4.0-10.0) 10^3/ uL RBC (4.1-5.3) 10^6/u L Hgb (11.5-15.3) g/dL Hct (37.0-47.0) % MCV (81-99) fL MCH (28.0-34.0) pg MCHC (30.0-36.0) g/dL RDW (12.1-15.1) % Plt Count (130-400) 10^3/c mm MPV (7.4-10.4) fL Neut % (Auto) % Lymph % (Auto) % Wayne % (Auto) % Eos % (Auto) % Baso % (Auto) % Neut # (Auto) (1.8-7.7) 10^3/u L Lymph # (Auto) (0.8-4.8) 10^3/u L Wayne # (Auto) (0.2-0.9) 10^3/u L Eos # (Auto) (0.0-0.8) 10^3/u L Baso # (Auto) (0.0-0.1) 10^3/u L Nucleated RBC % (a uto) % Nucleated RBCs # /100WBC Specimen Type Sample Site ABG pH (7.35-7.45) ABG pO2 (80.0-100.0) mmH g ABG HCO3 (22-26) mmol/L ABG Base Excess (-2.0-2.0) mmol/ L Adrian Test Hematocrit (37-47) % Hgb O2 Saturation (95-100) % Carboxyhemoglobin (0.4-20.1) %THgb Methemoglobin (0.4-1.5) % Total Hemoglobin (12-16) g/dL O2 Delivery Device O2 Liters/Min % FiO2 % Patient Services Coordinator ID Sodium (136-145) mmol/L Potassium (3.5-5.1) mmol/L Chloride (98-107) mmol/L Carbon Dioxide (22-29) mmol/L Anion Gap (5-19) BUN (6-20) mg/dL Creatinine (0.5-0.9) mg/dL GFR Calculation (90-130) mL/min Glucose (65-115) mg/dL Calculated Osmolal ity (285-295) mOsm/k g Lactic Acid 1.1 (0.5-2.2) mmol/L Calcium (8.5-10.5) mg/dL Total Bilirubin (0.15-1.2) mg/dL AST (0-32) U/L ALT (0-33) U/L Alkaline Phosphata se (35-105) IU/L Troponin T Baselin e 32 H (0-10) ng/L Troponin T 120 Min [place] 24.80 H (0-10) ng/L Delta Troponin T -7.20 L (0-10) ABS# NT-Pro-B Natriuret Pep (0-125) pg/mL Total Protein (6.6-8.7) g/dL Albumin (3.5-5.2) g/dL Globulin (1.3-4.6) g/dL Discharge Plan Discharge Patient Disposition: Admitted As Inpatient Admit Provider: Neal Sun Clinical Impression: Acute exacerbation of chronic obstructive airways disease Respiratory failure with hypoxia and hypercapnia Qualifiers: Chronicity: acute on chronic Qualified Code(s): J96.21 - Acute and chronic respiratory failure with hypoxia Condition: Stable Coding Level of Care Code ED Sugar Refiner for g Fwd Exam Comprehensive
--- NOTE | 2020-05-04 20:43 | PC.NURSE ---
Patient refused Flu and Covid 19 Swab
--- NOTE | 2020-05-04 21:19 | PM.HP ---
Providers/Chief Complaint Admitting Physician: Neal Sun Chief Complaint: DIFF BREATHING, SWOLLEN BLE History of Present Illness Adore Broussard is a 59 year old female with a history of advanced COPD presented to the emergency department with a complaint of progressive shortness of breath. Patient feels her new inhaler revefenacin is not effective. Patient was interested in knowing if her blood carbon dioxide level is high. CTA thorax demonstrated emphysema, no infiltrate or pulmonary embolism. CTA thorax also suggestive findings which could be hepatic vein thrombosis. Her arterial blood gas shows PCO2 of 99, a pH of 7.32 and PCO2 of 66. Patient placed on BiPAP. She is admitted for further management. Review of Systems Narrative: Patient denied any chest pain, she denied any abdominal pain. She denied any diarrhea she denied any nausea or vomiting. Except as documented, all other systems reviewed and negative. Medications/Allergies Home Medications Medication Instructions Recorded Confirmed Last Taken Type albuterol sulfate 1.25 mg/3 mL 2.5 mg INHALATION QID PRN 10/03/19 04/28/20 Unknown History solution for nebulization albuterol sulfate 90 mcg/actuation 2 puff INHALATION Q6H PRN 10/03/19 04/28/20 Unknown History aerosol inhaler montelukast 10 mg tablet 10 mg PO DAILY 10/03/19 04/28/20 04/22/20 History sulfamethoxazole 400 See Rx Instructions .ROUTE 10/03/19 04/28/20 04/21/20 History mg-trimethoprim 80 mg tablet .COMPLEX tab Biktarvy 1 tab PO DAILY 04/23/20 04/28/20 04/23/20 History ipratropium-albuterol 3 ml INHALATION QID PRN 04/23/20 04/28/20 Unknown History nicotine (polacrilex) See Rx Instructions .ROUTE .COMPLEX 04/23/20 04/28/20 Unknown History aspirin 81 mg PO DAILY 30 Days #30 tab 04/26/20 04/28/20 Unknown Rx atorvastatin 40 mg PO BEDTIME 30 Days #30 tab 04/26/20 04/28/20 Unknown Rx carvedilol 3.125 mg PO BID 30 Days #60 tab 04/26/20 04/28/20 Unknown Rx pantoprazole 40 mg PO DAILY 30 Days #30 tab 04/26/20 04/28/20 Unknown Rx prednisone See Rx Instructions .ROUTE 04/26/20 04/28/20 Unknown Rx .COMPLEX #105 tab budesonide 0.5 mg/2 mL suspension 0.5 mg INHALATION BID 30 Days #120 04/28/20 04/28/20 Unknown Rx for nebulization ml formoterol fumarate 20 mcg/2 mL 2 ml INHALATION Q12H 30 Days #120 04/28/20 04/28/20 Unknown Rx solution for nebulization ml revefenacin 175 mcg/3 mL solution 175 mcg INHALATION DAILY 30 Days 04/28/20 04/28/20 Unknown Rx for nebulization #90 ml Allergies Allergy/AdvReac Type Severity Reaction Status Date / Time Penicillins Allergy ALGY-Difficulty Verified 04/28/20 14:51 Breathing phenobarbital Allergy ALGY-Hives Verified 04/28/20 14:51 Tetanus Vaccines and Toxoid Allergy ALGY-Hives Verified 04/28/20 14:51 PFSH Acute PFSH: Medical History COPD (chronic obstructive pulmonary disease) GERD (gastroesophageal reflux disease) Surgical History H/O laparoscopy Family History Mother COPD (chronic obstructive pulmonary disease) Father CAD (coronary artery disease) Social History Smoking and tobacco status: current every day smoker cigarettes Years cigarettes smoked: 50 [ Other cigarette details: Hx of 1 PPD x 15 Years ] Second hand smoke exposure: Yes Smoking risk assessment/counseling performed?: Yes Alcohol intake: never Counseling given: No Counseling given: Yes Lives independently: Yes Household members: none Marital status: / Current occupational status: disabled History of recent travel: No Current gender identity: Female Vitals/I&O/Wt Last Vital Signs Temp 98.4 F 05/04/20 17:29 Pulse 109 H 05/04/20 20:41 Resp 22 H 05/04/20 18:23 BP 127/84 05/04/20 20:41 Pulse Ox 92 05/04/20 20:41 Weight last 48 hrs Weight 36.287 kg Physical Exam Const: COMMON NORMALS: no acute distress and patient oriented x3 NUTRITIONAL APPEARANCE: underweight HENMT: COMMON NORMALS: normocephalic, atraumatic and moist oral mucous membranes Eye: COMMON NORMALS: Equal, round and reactive pupils present, EOMs intact bilaterally, conjunctivae normal and no scleral icterus Neck/C-Spine: COMMON NORMALS: no lymphadenopathy, supple, no JVD and Thyroid normal Lymph: LYMPHATIC: no lymphadenopathy noted Chest: COMMONS NORMALS: normal inspection of the chest and normal palpation of entire chest wall Resp: COMMON NORMALS: clear to auscultation bilaterally AUSCULTATION: no crackles, no rales and diminished lung sounds Cardio: COMMON NORMALS: regular rate, regular rhythm, S1 normal heart sound present and S2 normal heart sound present GI: COMMON NORMALS: Normal to inspection, nondistended, normoactive bowel sounds present, Soft to palpation, non-tender and No hepatosplenomegaly present : COMMON NORMALS: Yes no CVA tenderness Back/Pelvis: COMMON NORMALS: no thoracic nor lumbar tenderness and thoraco-lumbar ROM normal Extremity: COMMON NORMALS: full ROM, no clubbing, cyanosis or edema and no pedal edema Neuro: COMMON NORMALS: patient oriented x3, CN's II-XII intact bilaterally and no focal motor deficits Psych: COMMON NORMALS: mental status grossly normal, Normal thought process present, cooperative and speech normal Skin: COMMON NORMALS: no rashes or lesions noted, turgor normal and no jaundice Data : 05/05/20 03:42 05/05/20 03:42 Micro: Microbiology 05/04/20 18:26 Blood Culture - Preliminary Blood SPECIMEN COLLECTED 05/04/20 18:26 Blood Culture - Preliminary Blood SPECIMEN COLLECTED A&P Assessment and plan (1) Acute exacerbation of chronic obstructive airways disease: Status: Acute (2) Acute on chronic respiratory failure with hypoxia and hypercapnia: Status: Acute (3) Protein calorie malnutrition: Status: Acute (4) GERD (gastroesophageal reflux disease): Status: Acute (5) HIV (human immunodeficiency virus infection): Status: Acute Additional A&P Information Admit to the medical floor. Continue BiPAP started in the ED. Repeat ABG in 6 hours to follow PCO2 Order IV Solu-Medrol, scheduled DuoNeb, albuterol as needed. PPI-pantoprazole for stress ulcer prophylaxis and for GERD Continue HIV medications. Respiratory therapy to assess and treat. Attestations Medical Necessity Statement*: Patient will need to be hospitalized for treatment of COPD exacerbation with hypercapnia. She is expected to spend more than 2 midnights. Time Spent in Patient Care: 54 minutes. Coding Level of Care Code Acute Wheel Press Operator for Briang Fwd Exam Comprehensive Diagnoses Acute exacerbation of chronic obstructive airways disease J44.1 Acute on chronic respiratory failure with hypoxia and hypercapnia J96.21; J96.22 Protein calorie malnutrition E46 GERD (gastroesophageal reflux disease) K21.9 HIV (human immunodeficiency virus infection) B20
[2020-05-04 21:27] LABS: ABG PH Result 7.39 (7.35-7.45); Arterial Blood Gas Hematocrit 40.9 % (37-47); Base Excess ABG 21.4 mmol/L (-2.0-2.0); Blood Gas Allen Test Pos; Blood Gas Sample Site Radial, right; Blood Gas Sample Type Arterial; HCO3 ABG 51.3 mmol/L (22-26); Oxygen Device BIPAP; PO2 ABG 53.5 mmHg (80.0-100.0)
[2020-05-04 21:28] LABS: ABG PCO2 84.5 mmHg (35-45)
--- NOTE | 2020-05-04 21:41 | PC.NURSE ---
Patient again refused flu and Covid 19 swab
[2020-05-04 22:51] LABS: ABG PCO2 98.8 mmHg (35-45)
--- NOTE | 2020-05-04 23:26 | ECG_ITS ---
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
[2020-05-04] MEDS: enoxaparin 40 mg/0.4 mL Syringe SUBCUT (23:51)
[2020-05-05] VITALS (63 sets, daily range): BP systolic 105–164; BP diastolic 65–81; PULSE 85–122; RESP 6–43; TEMP 36.6–37.1; O2SAT 90–98
--- NOTE | 2020-05-05 00:48 | PC.NURSE ---
Patient arrived to ICU at 2259 from ED. Patient is on bipap currently and V/S are all WNL.
[2020-05-05 01:08] LABS: Troponin 5 6HR 19.98 ng/L (0-10)
[2020-05-05 01:15] LABS: Troponin 5 6HR Delta -12.02 ng/L (0-12)
[2020-05-05] MEDS: ipratropium-albuterol 3 mL Neb INHALATION ×3 (03:47→14:42)
[2020-05-05 04:42] LABS: ABG PCO2 80.3 mmHg (35-45); ABG PH Result 7.41 (7.35-7.45); Arterial Blood Gas Hematocrit 39.8 % (37-47); Base Excess ABG 21.1 mmol/L (-2.0-2.0); Blood Gas Allen Test Pos; Blood Gas Operator Identificat JB; Blood Gas Sample Site Radial, right; Blood Gas Sample Type Arterial; HCO3 ABG 50.4 mmol/L (22-26); Oxygen Device NC; PO2 ABG 62.3 mmHg (80.0-100.0)
[2020-05-05 04:47] LABS: Basophils % 0.3 %; Hematocrit 40.1 % (37.0-47.0); Hemoglobin 12.3 g/dL (11.5-15.3); Lymphocytes # 0.4 10^3/uL (0.8-4.8); Lymphocytes % 11.1 %; Mean Corpuscular HGB Conc 30.7 g/dL (30.0-36.0); Mean Corpuscular Hemoglobin 28.3 pg (28.0-34.0); Mean Corpuscular Volume 92.2 fL (81-99); Mean Platelet Volume 10.3 fL (7.4-10.4); Monocytes % 0.8 %; Neutrophils # 3.45 10^3/uL (1.8-7.7); Neutrophils % 87.3 %; Nucleated Red Blood Cells % 0 %; Platelet Count 239 10^3/cmm (130-400); Red Blood Count 4.35 10^6/uL (4.1-5.3); Red Cell Distribution Width 12.4 % (12.1-15.1)
[2020-05-05 05:24] LABS: Procalcitonin 0.07 ng/mL (0-0.5); Thyroid Stimulating Hormone 0.85 uIU/mL (0.27-4.20)
[2020-05-05 05:35] LABS: Alanine Aminotransferase 17 U/L (0-33); Albumin Level 3.2 g/dL (3.5-5.2); Alkaline Phosphatase 41 IU/L (35-105); Anion Gap 7.2 (5-19); Aspartate Amino Transferase 17 U/L (0-32); Blood Urea Nitrogen 16 mg/dL (6-20); Calcium 8.8 mg/dL (8.5-10.5); Chloride 90 mmol/L (98-107); Globulin 2.2 g/dL (1.3-4.6); Glomerular Filtration Rate 85.9 mL/min (90-130); Glucose 151 mg/dL (65-115); Magnesium 2.1 mg/dL (1.7-2.3); Osmolality Calculated 288 mOsm/kg (285-295); Potassium 5.2 mmol/L (3.5-5.1); Sodium 137 mmol/L (136-145); Total Bilirubin 0.4 mg/dL (0.15-1.2); Total Protein 5.4 g/dL (6.6-8.7)
[2020-05-05 05:59] LABS: Carbon Dioxide 45 mmol/L (22-29)
[2020-05-05] MEDS: montelukast sodium 10 mg Tablet PO (08:13)
[2020-05-05] MEDS: aspirin 81 mg EC Tablet PO (08:13)
[2020-05-05] MEDS: atorvastatin 40 mg Tablet PO ×2 (08:14→21:18)
[2020-05-05] MEDS: pantoprazole DR 40 mg Tablet PO (08:14)
[2020-05-05] MEDS: carvedilol 3.125 mg Tablet PO ×2 (08:14→18:21)
[2020-05-05] MEDS: budesonide 0.5 mg/2 mL Neb INHALATION (08:40)
--- NOTE | 2020-05-05 09:28 | PC.CHAP ---
Pastoral Care Encounter/Spiritual Assessment Type of Contact [] Declined gambling cashier visit [] Patient/Family/Request visit [] Outpatient visit [] Follow-up visit [] Physician referral [] Code/Alert [x] Routine visit [] Staff referral [] Actively dying [x] Patient sleeping [] Family support [] [] Out of room [] Palliative care [] [] Receiving care in room [] Pre-surgical visit [] Trauma [] Long length of stay [] ICU visit [] Other: Relational/Emotional Strength [] Patient feels connected with others/family/visitors/staff [] Distress [] Loneliness/isolation [] Abandonment Spirituality of Patient [] Person of Thea [] Attends Evangelical of their Thea [] Believes in Prayer [] Reads Bible or Hindu materials [] There are Spiritual issues to be addressed Medical Donation Professional Interventions [] Prayer [] Active listening [] Non-anxious presence [] Spiritual/emotional support [] Crisis/trauma care [] Spiritual counseling [] Bereavement support [] Provided bereavement packet [] Provided Bible/devotional materials [] Provided toy/stuffed animal, coloring book to patient or family member [] Provided Communion [] Anointing/Brainard [] Salvation [] Completed spiritual assessment [] Other: Impact on Illness or Injury [] Angry [] Fearful [] Anxious [] Often cries [] Exhaustion [] Unable to work [] Unable to attend religious [] Unable to walk/stand [] Unable to read [] Unable to drive [] Unable to eat/drink [] Unable to sleep [] Unable to be with family [] Patient intubated [] Other: Summary Time spent with patient
[2020-05-05] MEDS: dextrose 50% syringe 50 mL 25 ML IVP (09:50)
[2020-05-05] MEDS: sodium polystyrene sulfonate 15 gm/60 mL Btl PO ×3 (09:50→21:19)
[2020-05-05] MEDS: sulfamethoxazole-trimeth DS 160-800 mg Tablet 0.5 TAB PO (09:51)
[2020-05-05] MEDS: FUROsemide 10 mg/mL SDV 4mL 40 MG IVP (09:51)
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
--- NOTE | 2020-05-05 15:34 | PC.NURSE ---
pt refused vitals due to wanting to go home.
--- NOTE | 2020-05-05 15:40 | PC.NURSE ---
I was notified by Luis Brower CNA that patient was requesting to leave AMA, stating that she has animals at home. I went in and spoke with patient and she is of sound mind and judgment and reports that she needs to leave right now stating that she has animals at home and can't leave them out in the weather . I explained to her that the weather was currently not bad at this time and reviewed the risks of leaving the hospital AMA and she states you guys aren't doing anything for me that I can't do at home. She asked that I speak to Dr. Wagner regarding this. I called and spoke with Dr. Wagner and informed him of the above information. He states that as long as she knows her risks and benefits, she may leave AMA. Goyo Ospina RN obtained an AMA form and preceded to patient's room to review with her again. While she was in the room, Dr. Wagner came to the floor and went to speak with the patient. After speaking with the patient further, Dr. Wagner reports that the patient has decided to stay. I informed Goyo Ospina RN and Litzy Cerrato RN of this.
[2020-05-05] MEDS: doxycycline 100 MG in sodium chloride 0.9% (plus) 100 ML IV (16:19)
--- NOTE | 2020-05-05 17:05 | PC.RESP ---
SMOKING CESSATION AND PULMONARY REHAB INFORMATION SENT TO PATIENT.
[2020-05-05] MEDS: acetaminophen 325 mg Tablet 650 MG PO (18:23)
[2020-05-05] MEDS: CLONazepam 0.5 mg Tablet 0.25 MG PO (21:18)
[2020-05-05] MEDS: enoxaparin 40 mg/0.4 mL Syringe SUBCUT (23:58)
[2020-05-06] VITALS: BP 137/60; PULSE 119; RESP 20; TEMP 36.7; O2SAT 93
--- NOTE | 2020-05-06 00:06 | PC.NURSE ---
0000 Solu Medrol Administration: While assessing the IV with the certified nursing assistant instructor prior to giving Solu-Medrol the pt was c/o pain while flushing. Used 20ml of NS to flush IV and while no edema noted above the IV site the pt said it was painful the entire time. No blood return noted. Explained to the pt that it was not good practice to give IV medications through an IV that was painful. The pt refused to have nursing staff start another IV saying that she was going home in the morning. The pt then said you can go ahead and give me the medicine . Again educated the pt on the dangers of using an IV that may not be in good position and she became angry saying to just take it out.
[2020-05-06 02:55] LABS: SARS Covid-2 Antigen Negative (Negative)
[2020-05-06 02:56] LABS: Influenza A by IFA Negative (Negative); Influenza B by IFA Negative (Negative)
[2020-05-06 04:00] VITALS: BP 121/59; PULSE 98; RESP 20; TEMP 36.6; O2SAT 94
--- NOTE | 2020-05-06 05:00 | US_ITS ---
WS: [id number] ULTRASOUND ABDOMEN LIMITED CLINICAL INFORMATION: hepatic barbi thrombosis? COMPARISON: None. FINDINGS: Liver Portal veins and hepatic veins are patent with appropriate flow Size: Normal. Craniocaudal length: 15.2 cm. Echogenicity: Normal. Surface nodularity: None. Mass (size and location): None. Bile ducts Intrahepatic ducts: Normal. Common bile duct diameter: 0.4 cm. Gallbladder Normal. Gallstones: None. Gallbladder sludge: None. Gallbladder wall thickening: None. Pericholecystic fluid: None. Sonographic Morillo sign: Absent. Pancreas Not well seen due to bowel gas Right kidney: Normal. Hydronephrosis: None. Size: 8.0 cm x 4.7 cm x 3.2 cm. Abdominal aorta and IVC Visualized portions are normal. Ascites: None. US/US liver [id number] IMPRESSION: 1. Liver is normal in appearance. Portal veins and hepatic veins are patent 2. Normal gallbladder. Normal common bile duct. 3. No hydronephrosis in right kidney
[2020-05-06 05:10] LABS: Basophils % 0.1 %; Hematocrit 34.9 % (37.0-47.0); Lymphocytes # 0.8 10^3/uL (0.8-4.8); Lymphocytes % 10.2 %; Mean Corpuscular HGB Conc 31.5 g/dL (30.0-36.0); Mean Corpuscular Hemoglobin 28.6 pg (28.0-34.0); Mean Corpuscular Volume 90.6 fL (81-99); Mean Platelet Volume 10.5 fL (7.4-10.4); Monocytes # 0.4 10^3/uL (0.2-0.9); Monocytes % 5.6 %; Neutrophils # 6.43 10^3/uL (1.8-7.7); Neutrophils % 83.5 %; Nucleated Red Blood Cells % 0 %; Platelet Count 208 10^3/cmm (130-400); Red Blood Count 3.85 10^6/uL (4.1-5.3); White Blood Count 7.7 10^3/uL (4.0-10.0)
[2020-05-06 05:29] LABS: Alanine Aminotransferase 15 U/L (0-33); Albumin Level 3.3 g/dL (3.5-5.2); Alkaline Phosphatase 37 IU/L (35-105); Anion Gap 7.1 (5-19); Aspartate Amino Transferase 16 U/L (0-32); Blood Urea Nitrogen 22 mg/dL (6-20); Calcium 8.4 mg/dL (8.5-10.5); Chloride 84 mmol/L (98-107); Globulin 1.7 g/dL (1.3-4.6); Glomerular Filtration Rate 64.3 mL/min (90-130); Glucose 140 mg/dL (65-115); Magnesium 1.9 mg/dL (1.7-2.3); Osmolality Calculated 292 mOsm/kg (285-295); Phosphorus 4.6 mg/dL (2.5-4.5); Potassium 3.1 mmol/L (3.5-5.1); Sodium 138 mmol/L (136-145); Total Bilirubin 0.4 mg/dL (0.15-1.2)
[2020-05-06 05:42] LABS: Carbon Dioxide 50 mmol/L (22-29)
--- NOTE | 2020-05-06 07:42 | PC.NURSE ---
late entry 05/05/20 1113 Patient has isolation order because they were going to test her for covid and flu but she refused. Asked Dr Wagner, Do you want to keep the isolation order active or discontinue. Per Dr Wagner, Keep isolation order active.
[2020-05-06 07:59] VITALS: BP 166/82; PULSE 114; RESP 19; TEMP 36.8; O2SAT 96
[2020-05-06] MEDS: budesonide 0.5 mg/2 mL Neb INHALATION (08:00)
[2020-05-06] MEDS: ipratropium-albuterol 3 mL Neb INHALATION (08:00)
[2020-05-06 08:01] VITALS: PULSE 107; RESP 18; O2SAT 98
[2020-05-06 08:03] VITALS: PULSE 111
--- NOTE | 2020-05-06 08:40 | PC.NURSE ---
patient negative for covid and flu, notified Dr Wagner and asked if we can discontinue isolation order. Per Dr Wagner, yes discontinue isolation order.
[2020-05-06] MEDS: pantoprazole DR 40 mg Tablet PO (09:46)
[2020-05-06] MEDS: montelukast sodium 10 mg Tablet PO (09:46)
[2020-05-06] MEDS: aspirin 81 mg EC Tablet PO (09:46)
[2020-05-06] MEDS: potassium chloride ER 20 mEq Tablet 40 MEQ PO (09:47)
[2020-05-06] MEDS: carvedilol 3.125 mg Tablet PO (09:47)
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
[2020-05-06 09:51] LABS: ABG PH Result 7.48 (7.35-7.45); Arterial Blood Gas Hematocrit 38.7 % (37-47); Base Excess ABG 22.8 mmol/L (-2.0-2.0); Blood Gas Sample Type Arterial; HCO3 ABG 50.5 mmol/L (22-26); PO2 ABG 67.7 mmHg (80.0-100.0)
[2020-05-06 09:52] LABS: ABG PCO2 68.3 mmHg (35-45); Blood Gas Operator Identificat GD; Blood Gas Sample Site Brachial, left; Oxygen Device NC
--- NOTE | 2020-05-06 10:26 | PC.NURSE ---
discharge instructions given to patient and patient verbalized understanding of instructions. patient would not wait for HH referral, patient taken to private vehicle via wheelchair by filing writer.
[2020-05-06 10:28] VITALS: BP 166/82; PULSE 111; RESP 18; TEMP 36.8; O2SAT 98
--- NOTE | 2020-05-06 10:31 | PC.NURSE ---
Notified Evie FISHER that patient would not wait for us to set up her HH.
== END 2020-05-06 10:31 | disposition home or self-care (01) | DRG 190 ==
LOC: ER 20:33 → MEDSURG 05-05 07:51 → ICU 05-05 07:58
PROVIDERS: Family Medicine; Nurse Practitioner Family; Admitting Provider Internal Medicine; Emergency Provider Emergency Medicine; Visit Provider Family Medicine
DX: J44.1 Chronic obstructive pulmonary disease with (acute) exacerbation (principal); J96.22 Acute and chronic respiratory failure with hypercapnia; J96.21 Acute and chronic respiratory failure with hypoxia; I82.0 Budd-Chiari syndrome; E46 Unspecified protein-calorie malnutrition; Z68.1 Body mass index [BMI] 19.9 or less, adult; B20 Human immunodeficiency virus [HIV] disease; K21.9 Gastro-esophageal reflux disease without esophagitis; F17.210 Nicotine dependence, cigarettes, uncomplicated; Z99.81 Dependence on supplemental oxygen; Z79.51 Long term (current) use of inhaled steroids; Z79.82 Long term (current) use of aspirin
CPT/HCPCS: 12345; 36415; 36600; 71045; 71275; 76705; 80053; 82803; 82805; 83605; 83735; 83880; 84100; 84145; 84443; 84484; 85025; 86403; 87040; 87070; 87205; 87426; 87804; 93005; 94640; 94660; 96372; 99283; J1630; J1650; J1815; J1940; J2060; J2930; J3490; J3535; J7611; J7626; Q9967

== ENCOUNTER 2020-05-14 11:41 | Inpatient (IN) | payer MEDICAID, SELFPAY ==
[2020-05-14] VITALS (15 sets, daily range): BP systolic 133–169; BP diastolic 72–88; PULSE 106–127; RESP 18–33; TEMP 36.4–37.1; O2SAT 88–100; BMI 19.8
--- NOTE | 2020-05-14 11:49 | ECG_ITS ---
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 Measurements Intervals [place] Rate: 103 P: 85 AK: 145 QRS: 83 QRSD: 80 T: 71 QT: 308 QTc: 405 Interpretive Statements SINUS TACHYCARDIA POSSIBLE RIGHT ATRIAL ENLARGEMENT [0.25mV P WAVE] LEFT ATRIAL ENLARGEMENT [-0.15mV P WAVE IN V1/V2] Compared to ECG 05/04/2020 23:58:08 Sinus rhythm no longer present Electronically Signed On 05-15-2020 16:54:53 STEEL CONSTRUCTION WORKER by Mingo Donahue M.D. [email or web address]
--- NOTE | 2020-05-14 11:50 | XR_ITS ---
WS: [id number] PORTABLE CHEST HISTORY: SOB COMPARISON: 05/04/2020 Pulmonary hyperexpansion from emphysema. No pneumonia. Dense sclerotic nodule in the LEFT LEFT lower lobe corresponds to a rib lesion. Probably callus formation around healed rib fracture. No pleural ef fusion or pneumothorax. Cardiac size: Normal. Mediastinum/Aorta: Normal mediastinum. No osseous abnormality seen. XR/XR chest 1V portable [id number] IMPRESSION: Chronic emphysema. No pneumonia.
[2020-05-14 11:59] LABS: Glucose Point of Care 147 mg/dL (70-110)
--- NOTE | 2020-05-14 11:59 | W.ED.SOB ---
HPI - SOB/Dyspnea General: Chief Complaint: Shortness of Breath/Dyspnea Stated Complaint: DIFF BREATHING Time Seen by Provider: 05/14/20 11:42 History of Present Illness: HPI Narrative: This patient is a 59 year old female with history of COPD, CHF, HIV, respiratory failure - presenting by EMS with shortness of breath. She is not able to tell me much history due to her respiratory distress. She uses 2 L oxygen at home per EMS report and they increased her to 4 liters with sats now in the high 90's. She also uses nebulizers. On review of prior records - she is supposed to use a bipap but compliance has been questionable in the past apparently. She was recently hospitalized with similar presentation and discharged 05/06 on doxycycline and prednisone. MD elicited complaint: shortness of breath Pertinent past history: COPD, congestive heart failure and HIV Onset (ago): unknown Context: other (patient reports she is reacting to pet urine odors in her house) Timing: constant and progressively worsening Severity: severe Exacerbating factors: nothing Relieving factors: nothing Known history of: COPD, congestive heart failure and HIV Associated symptoms: Reports other (denies COVID exposure); Deny chest pain, cough or fever(s) Treatment prior to arrival: oxygen and other (terbutiline) Review of Systems General: Reports: ROS unobtainable due to medical condition Const: Denies: fever(s) Card: Denies: chest pain [facility] PFSH: Medical History CHF (congestive heart failure) COPD (chronic obstructive pulmonary disease) GERD (gastroesophageal reflux disease) HIV (human immunodeficiency virus infection) Surgical History H/O laparoscopy Family History Mother COPD (chronic obstructive pulmonary disease) Father CAD (coronary artery disease) Social History Smoking and tobacco status: current every day smoker cigarettes Years cigarettes smoked: 50 Number of cigarettes per day: 1-5 [ Other cigarette details: Hx of 1 PPD x 15 Years ] Second hand smoke exposure: Yes Smoking risk assessment/counseling performed?: Yes Alcohol intake: current Alcohol intake frequency: holidays/special occasions only Counseling given: No Substance/Drug Use: current Substance/Drug use frequency: few times a month Substance/Drug use type: Marijuana and Amphetamines Counseling given: Yes Lives independently: Yes Household members: none Marital status: / Current occupational status: disabled History of recent travel: No Current gender identity: Female Physical Exam Const: EXAM LIMITATIONS: altered mental status (lethargic, not answering questions verbally, only nodding or shaking her he) GENERAL APPEARANCE: cooperative, in distress and lethargic NUTRITIONAL APPEARANCE: cachectic ORIENTATION/CONSCIOUSNESS: Yes lethargic HENMT: HEAD & SCALP: normal to inspection FACE & SINUS: normal facial exam Eye: GENERAL EYE: appearance normal, both eyes and all related structures Neck/C-Spine: COMMON NORMALS: supple, no meningeal signs and no JVD Chest: COMMONS NORMALS: normal inspection of the chest (barrel chested) Resp: EFFORT & INSPECTION: Yes tachypneic, Yes respiratory distress, Yes labored, Yes retractions, Yes uses accessory muscles, Yes audible wheezes and Yes prolonged expiratory phase AUSCULTATION: rhonchi (especially right base), wheezes and diminished lung sounds Cardio: COMMON NORMALS: no JVD, regular rhythm and No murmurs present (Cardio) RATE: tachycardic RHYTHM: regular rhythm GI: COMMON NORMALS: Normal to inspection, nondistended, normoactive bowel sounds present and Soft to palpation INSPECTION: Yes normal to inspection AUSCULTATION: Yes normoactive bowel sounds PALPATION: Yes Soft to palpation and Yes Tenderness to palpation present (GI) Details: RUQ Back/Pelvis: COMMON NORMALS: thoracic and lumbar spine normal to inspection Extremity: COMMON NORMALS: negative for no pedal edema NARRATIVE EXTREMITY EXAM: feet cool to the touch, edema present, cap refill 3 sec. Both arms with extensive bruising on the extensor surfaces Neuro: COMMON NORMALS: moves all extremities, no focal motor deficits and no sensory deficits noted SENSORIUM/ORIENTATION: Yes lethargic MENINGEAL SIGNS: Yes no meningeal signs Psych: COMMON NORMALS: mental status grossly normal and cooperative Skin: COMMON NORMALS: no rashes or lesions noted GENERAL SKIN EXAM: no rashes or lesions noted and ecchymosis Course Vital Signs: Vital signs: Vital Signs Temperature 98.8 F 05/14/20 18:00 Pulse Rate 121 H 05/14/20 18:00 Respiratory Rate 26 H 05/14/20 18:00 Blood Pressure 133/79 05/14/20 18:00 Pulse Oximetry 96 05/14/20 18:00 MDM - SOB/Dyspnea Lab Data: Labs: Lab Results 05/14/20 05/14/20 05/14/20 Range/Units 11:30 11:30 11:30 WBC 10.1 H (4.0-10.0) 10^3/ uL RBC 5.46 H (4.1-5.3) 10^6/u L Hgb 15.7 H (11.5-15.3) g/dL Hct 51.9 H (37.0-47.0) % MCV 95.1 (81-99) fL MCH 28.8 (28.0-34.0) pg MCHC 30.3 (30.0-36.0) g/dL RDW 12.6 (12.1-15.1) % Plt Count 247 (130-400) 10^3/c mm MPV 9.8 (7.4-10.4) fL Neut % (Auto) 64.9 % Lymph % (Auto) 21.1 % [place] % (Auto) 11.0 % Eos % (Auto) 1.5 % Baso % (Auto) 0.2 % Neut # (Auto) 6.54 (1.8-7.7) 10^3/u L Lymph # (Auto) 2.1 (0.8-4.8) 10^3/u L [place]ah # (Auto) 1.1 H (0.2-0.9) 10^3/u L Eos # (Auto) 0.2 (0.0-0.8) 10^3/u L Baso # (Auto) 0.0 (0.0-0.1) 10^3/u L Nucleated RBC % (a uto) 0 % Nucleated RBCs # 0.0 /100WBC PT 12.30 (12.1-14.9) SECO NDS INR 0.89 (0.8-1.2) Specimen Type Sample Site ABG pH (7.35-7.45) ABG pCO2 (35-45) mmHg ABG pO2 (80.0-100.0) mmH g ABG HCO3 (22-26) mmol/L ABG Base Excess (-2.0-2.0) mmol/ L Adrian Test Hematocrit (37-47) % O2 Delivery Device O2 Liters/Min % FiO2 % Freight Flow Sales Leader ID Sodium (136-145) mmol/L Potassium (3.5-5.1) mmol/L Chloride (98-107) mmol/L Carbon Dioxide (22-29) mmol/L Anion Gap (5-19) BUN (6-20) mg/dL Creatinine (0.5-0.9) mg/dL GFR Calculation (90-130) mL/min Glucose (65-115) mg/dL POC Glucose (70-110) mg/dL Calculated Osmolal ity (285-295) mOsm/k g Lactic Acid (0.5-2.2) mmol/L Calcium (8.5-10.5) mg/dL Magnesium (1.7-2.3) mg/dL Total Bilirubin (0.15-1.2) mg/dL AST (0-32) U/L ALT (0-33) U/L Alkaline Phosphata se (35-105) IU/L Ammonia (11-51) umol/L Troponin T Baselin e 48 H (0-10) ng/L Troponin T 120 Min [place] (0-10) ng/L Delta Troponin T (0-10) ABS# NT-Pro-B Natriuret Pep (0-125) pg/mL Total Protein (6.6-8.7) g/dL Albumin (3.5-5.2) g/dL Globulin (1.3-4.6) g/dL Lipase (13-60) U/L Urine Color (Yellow) Urine Appearance (CLEAR) Urine pH (5-7) Ur Specific Gravit y (1.005-1.030) Urine Protein (Negative) Urine Glucose (UA) (Normal) Urine Ketones (Negative) Urine Blood (Negative) Urine Nitrate (Negative) Urine Bilirubin (Negative) Urine Urobilinogen (Negative) mg/dL Ur Leukocyte [place] ase (Negative) Urine RBC (0-2) /hpf Urine WBC (0-5) /hpf Ur Squamous Epith Cells (0-5) /hpf Amorphous Sediment Urine Bacteria (NONE) /hpf Urine Mucus /hpf Urine Yeast /hpf SARS-CoV-2 Ag (Rap id) (Negative) 05/14/20 05/14/20 05/14/20 Range/Units 11:30 11:57 12:01 WBC (4.0-10.0) 10^3/ uL RBC (4.1-5.3) 10^6/u L Hgb (11.5-15.3) g/dL Hct (37.0-47.0) % MCV (81-99) fL MCH (28.0-34.0) pg MCHC (30.0-36.0) g/dL RDW (12.1-15.1) % Plt Count (130-400) 10^3/c mm MPV (7.4-10.4) fL Neut % (Auto) % Lymph % (Auto) % [place] % (Auto) % Eos % (Auto) % Baso % (Auto) % Neut # (Auto) (1.8-7.7) 10^3/u L Lymph # (Auto) (0.8-4.8) 10^3/u L [place] # (Auto) (0.2-0.9) 10^3/u L Eos # (Auto) (0.0-0.8) 10^3/u L Baso # (Auto) (0.0-0.1) 10^3/u L Nucleated RBC % (a uto) % Nucleated RBCs # /100WBC PT (12.1-14.9) SECO NDS INR (0.8-1.2) Specimen Type Arterial Sample Site Brachial, right ABG pH 7.21 L (7.35-7.45) ABG pCO2 131.0 H* (35-45) mmHg ABG pO2 206.0 H (80.0-100.0) mmH g ABG HCO3 52.3 H (22-26) mmol/L ABG Base Excess 17.8 H (-2.0-2.0) mmol/ L Adrian Test Pos Hematocrit 43.1 (37-47) % O2 Delivery Device Nc O2 Liters/Min 4.0 % FiO2 36.0 % Freight Flow Sales Leader ID Monro Sodium 137 (136-145) mmol/L Potassium 4.5 (3.5-5.1) mmol/L Chloride 85 L (98-107) mmol/L Carbon Dioxide 49 H* (22-29) mmol/L Anion Gap 7.5 (5-19) BUN 13 (6-20) mg/dL Creatinine 0.6 (0.5-0.9) mg/dL GFR Calculation 102.7 (90-130) mL/min Glucose 132 H (65-115) mg/dL POC Glucose 147 H (70-110) mg/dL Calculated Osmolal ity 286 (285-295) mOsm/k g Lactic Acid (0.5-2.2) mmol/L Calcium 9.3 (8.5-10.5) mg/dL Magnesium 2.2 (1.7-2.3) mg/dL Total Bilirubin 0.8 (0.15-1.2) mg/dL AST 23 (0-32) U/L ALT 27 (0-33) U/L Alkaline Phosphata se 56 (35-105) IU/L Ammonia (11-51) umol/L Troponin T Baselin e (0-10) ng/L Troponin T 120 Min [place] (0-10) ng/L Delta Troponin T (0-10) ABS# NT-Pro-B Natriuret Pep 1513 H (0-125) pg/mL Total Protein 6.6 (6.6-8.7) g/dL Albumin 4.3 (3.5-5.2) g/dL Globulin 2.3 (1.3-4.6) g/dL Lipase 40 (13-60) U/L Urine Color (Yellow) Urine Appearance (CLEAR) Urine pH (5-7) Ur Specific Gravit y (1.005-1.030) Urine Protein (Negative) Urine Glucose (UA) (Normal) Urine Ketones (Negative) Urine Blood (Negative) Urine Nitrate (Negative) Urine Bilirubin (Negative) Urine Urobilinogen (Negative) mg/dL Ur Leukocyte [place] ase (Negative) Urine RBC (0-2) /hpf Urine WBC (0-5) /hpf Ur Squamous Epith Cells (0-5) /hpf Amorphous Sediment Urine Bacteria (NONE) /hpf Urine Mucus /hpf Urine Yeast /hpf SARS-CoV-2 Ag (Rap id) (Negative) 05/14/20 05/14/20 05/14/20 Range/Units 12:20 12:20 13:17 WBC (4.0-10.0) 10^3/ uL RBC (4.1-5.3) 10^6/u L Hgb (11.5-15.3) g/dL Hct (37.0-47.0) % MCV (81-99) fL MCH (28.0-34.0) pg MCHC (30.0-36.0) g/dL RDW (12.1-15.1) % Plt Count (130-400) 10^3/c mm MPV (7.4-10.4) fL Neut % (Auto) % Lymph % (Auto) % [place] % (Auto) % Eos % (Auto) % Baso % (Auto) % Neut # (Auto) (1.8-7.7) 10^3/u L Lymph # (Auto) (0.8-4.8) 10^3/u L [place] # (Auto) (0.2-0.9) 10^3/u L Eos # (Auto) (0.0-0.8) 10^3/u L Baso # (Auto) (0.0-0.1) 10^3/u L Nucleated RBC % (a uto) % Nucleated RBCs # /100WBC PT (12.1-14.9) SECO NDS INR (0.8-1.2) Specimen Type Sample Site ABG pH (7.35-7.45) ABG pCO2 (35-45) mmHg ABG pO2 (80.0-100.0) mmH g ABG HCO3 (22-26) mmol/L ABG Base Excess (-2.0-2.0) mmol/ L Adrian Test Hematocrit (37-47) % O2 Delivery Device O2 Liters/Min % FiO2 % Freight Flow Sales Leader ID Sodium (136-145) mmol/L Potassium (3.5-5.1) mmol/L Chloride (98-107) mmol/L Carbon Dioxide (22-29) mmol/L Anion Gap (5-19) BUN (6-20) mg/dL Creatinine (0.5-0.9) mg/dL GFR Calculation (90-130) mL/min Glucose (65-115) mg/dL POC Glucose (70-110) mg/dL Calculated Osmolal ity (285-295) mOsm/k g Lactic Acid 0.6 (0.5-2.2) mmol/L Calcium (8.5-10.5) mg/dL Magnesium (1.7-2.3) mg/dL Total Bilirubin (0.15-1.2) mg/dL AST (0-32) U/L ALT (0-33) U/L Alkaline Phosphata se (35-105) IU/L Ammonia 65 H (11-51) umol/L Troponin T Baselin e (0-10) ng/L Troponin T 120 Min [place] (0-10) ng/L Delta Troponin T (0-10) ABS# NT-Pro-B Natriuret Pep (0-125) pg/mL Total Protein (6.6-8.7) g/dL Albumin (3.5-5.2) g/dL Globulin (1.3-4.6) g/dL Lipase (13-60) U/L Urine Color Yellow (Yellow) Urine Appearance Sl hazy (CLEAR) Urine pH 5 (5-7) Ur Specific Gravit y 1.020 (1.005-1.030) Urine Protein Neg (Negative) Urine Glucose (UA) Norm (Normal) Urine Ketones Negative (Negative) Urine Blood Neg (Negative) Urine Nitrate Negative (Negative) Urine Bilirubin Neg (Negative) Urine Urobilinogen Norm (Negative) mg/dL Ur Leukocyte [place] ase Negative (Negative) Urine RBC 0-4 H (0-2) /hpf Urine WBC 0-4 H (0-5) /hpf Ur Squamous Epith Cells 15-25 H (0-5) /hpf Amorphous Sediment Not Reportable Urine Bacteria 1+ H (NONE) /hpf Urine Mucus Trace /hpf Urine Yeast 2+ H /hpf SARS-CoV-2 Ag (Rap id) (Negative) 05/14/20 05/14/20 05/14/20 Range/Units 13:20 13:45 14:20 WBC (4.0-10.0) 10^3/ uL RBC (4.1-5.3) 10^6/u L Hgb (11.5-15.3) g/dL Hct (37.0-47.0) % MCV (81-99) fL MCH (28.0-34.0) pg MCHC (30.0-36.0) g/dL RDW (12.1-15.1) % Plt Count (130-400) 10^3/c mm MPV (7.4-10.4) fL Neut % (Auto) % Lymph % (Auto) % [place] % (Auto) % Eos % (Auto) % Baso % (Auto) % Neut # (Auto) (1.8-7.7) 10^3/u L Lymph # (Auto) (0.8-4.8) 10^3/u L [place] # (Auto) (0.2-0.9) 10^3/u L Eos # (Auto) (0.0-0.8) 10^3/u L Baso # (Auto) (0.0-0.1) 10^3/u L Nucleated RBC % (a uto) % Nucleated RBCs # /100WBC PT (12.1-14.9) SECO NDS INR (0.8-1.2) Specimen Type Arterial Sample Site Brachial, right ABG pH 7.38 (7.35-7.45) ABG pCO2 87.3 H* (35-45) mmHg ABG pO2 49.2 L (80.0-100.0) mmH g ABG HCO3 51.5 H (22-26) mmol/L ABG Base Excess 21.3 H (-2.0-2.0) mmol/ L Adrian Test Pos Hematocrit 40.5 (37-47) % O2 Delivery Device Bipap O2 Liters/Min % FiO2 32.0 % Freight Flow Sales Leader ID Monro Sodium (136-145) mmol/L Potassium (3.5-5.1) mmol/L Chloride (98-107) mmol/L Carbon Dioxide (22-29) mmol/L Anion Gap (5-19) BUN (6-20) mg/dL Creatinine (0.5-0.9) mg/dL GFR Calculation (90-130) mL/min Glucose (65-115) mg/dL POC Glucose (70-110) mg/dL Calculated Osmolal ity (285-295) mOsm/k g Lactic Acid (0.5-2.2) mmol/L Calcium (8.5-10.5) mg/dL Magnesium (1.7-2.3) mg/dL Total Bilirubin (0.15-1.2) mg/dL AST (0-32) U/L ALT (0-33) U/L Alkaline Phosphata se (35-105) IU/L Ammonia (11-51) umol/L Troponin T Baselin e (0-10) ng/L Troponin T 120 Min [place] 38.51 H (0-10) ng/L Delta Troponin T -9.49 L (0-10) ABS# NT-Pro-B Natriuret Pep (0-125) pg/mL Total Protein (6.6-8.7) g/dL Albumin (3.5-5.2) g/dL Globulin (1.3-4.6) g/dL Lipase (13-60) U/L Urine Color (Yellow) Urine Appearance (CLEAR) Urine pH (5-7) Ur Specific Gravit y (1.005-1.030) Urine Protein (Negative) Urine Glucose (UA) (Normal) Urine Ketones (Negative) Urine Blood (Negative) Urine Nitrate (Negative) Urine Bilirubin (Negative) Urine Urobilinogen (Negative) mg/dL Ur Leukocyte [place] ase (Negative) Urine RBC (0-2) /hpf Urine WBC (0-5) /hpf Ur Squamous Epith Cells (0-5) /hpf Amorphous Sediment Urine Bacteria (NONE) /hpf Urine Mucus /hpf Urine Yeast /hpf SARS-CoV-2 Ag (Rap id) Negative (Negative) Discharge Plan Discharge Patient Disposition: Admitted As Inpatient Admit Provider: Delon Jaimes Clinical Impression: Acute hypercapnic respiratory failure COPD (chronic obstructive pulmonary disease) Qualifiers: COPD type: COPD with acute exacerbation Qualified Code(s): J44.1 - Chronic obstructive pulmonary disease with (acute) exacerbation HIV (human immunodeficiency virus infection) Qualifiers: HIV symptom status: unspecified Qualified Code(s): B20 - Human immunodeficiency virus [HIV] disease Condition: Stable Coding Level of Care Code ED Concessions Manager for [facility] Fwd Exam Comprehensive
[2020-05-14 12:06] LABS: Basophils % 0.2 %; Eosinophils # 0.2 10^3/uL (0.0-0.8); Eosinophils % 1.5 %; Hematocrit 51.9 % (37.0-47.0); Hemoglobin 15.7 g/dL (11.5-15.3); Lymphocytes # 2.1 10^3/uL (0.8-4.8); Lymphocytes % 21.1 %; Mean Corpuscular HGB Conc 30.3 g/dL (30.0-36.0); Mean Corpuscular Hemoglobin 28.8 pg (28.0-34.0); Mean Corpuscular Volume 95.1 fL (81-99); Mean Platelet Volume 9.8 fL (7.4-10.4); Monocytes # 1.1 10^3/uL (0.2-0.9); Neutrophils # 6.54 10^3/uL (1.8-7.7); Neutrophils % 64.9 %; Nucleated Red Blood Cells % 0 %; Platelet Count 247 10^3/cmm (130-400); Red Blood Count 5.46 10^6/uL (4.1-5.3); Red Cell Distribution Width 12.6 % (12.1-15.1); White Blood Count 10.1 10^3/uL (4.0-10.0)
[2020-05-14 12:13] LABS: INR 0.89 (0.8-1.2)
[2020-05-14 12:14] LABS: ABG PH Result 7.21 (7.35-7.45); Arterial Blood Gas Hematocrit 43.1 % (37-47); Base Excess ABG 17.8 mmol/L (-2.0-2.0); Blood Gas Allen Test Pos; Blood Gas Operator Identificat MONRO; Blood Gas Sample Site Brachial, right; Blood Gas Sample Type Arterial; HCO3 ABG 52.3 mmol/L (22-26); Oxygen Device NC
[2020-05-14 12:26] LABS: Troponin(5th) Baseline 48 ng/L (0-10)
[2020-05-14] MEDS: ipratropium-albuterol 3 mL Neb 9 ML INHALATION (12:30)
[2020-05-14 12:35] LABS: Alanine Aminotransferase 27 U/L (0-33); Albumin Level 4.3 g/dL (3.5-5.2); Alkaline Phosphatase 56 IU/L (35-105); Aspartate Amino Transferase 23 U/L (0-32); Blood Urea Nitrogen 13 mg/dL (6-20); Calcium 9.3 mg/dL (8.5-10.5); Chloride 85 mmol/L (98-107); Globulin 2.3 g/dL (1.3-4.6); Glomerular Filtration Rate 102.7 mL/min (90-130); Glucose 132 mg/dL (65-115); Lipase 40 U/L (13-60); Magnesium 2.2 mg/dL (1.7-2.3); NT Pro B Type Natriuretic Pept 1513 pg/mL (0-125); Osmolality Calculated 286 mOsm/kg (285-295); Potassium 4.5 mmol/L (3.5-5.1); Sodium 137 mmol/L (136-145); Total Bilirubin 0.8 mg/dL (0.15-1.2); Total Protein 6.6 g/dL (6.6-8.7)
[2020-05-14 12:41] LABS: Anion Gap 7.5 (5-19)
[2020-05-14 12:45] LABS: Ammonia 65 umol/L (11-51); Lactic Sepsis W/Reflex 0.6 mmol/L (0.5-2.2)
[2020-05-14 12:49] LABS: Carbon Dioxide 49 mmol/L (22-29)
[2020-05-14 13:22] LABS: Add Urine Microscopic? YES; Bilirubin Urine Neg (Negative); Blood Urine Neg (Negative); Glucose Urine UA Norm (Normal); Ketones Urine Negative (Negative); Leukocyte Esterase Urine Negative (Negative); Nitrate Urine Negative (Negative); Protein Urine Neg (Negative); Urine Appearance SL Hazy (CLEAR); Urine Color Yellow (Yellow); Urobilinogen Urine Norm (Negative); pH Urine 5 (5-7)
[2020-05-14 13:27] LABS: RBC Urine 0-4 /hpf (0-2); Squamous Epithelial Cell Urine 15-25 /hpf (0-5); WBC Urine 0-4 /hpf (0-5)
[2020-05-14 13:28] LABS: Add Urine Culture? No; Bacteria Urine 1+ /hpf; Mucus Urine TRACE /hpf
--- NOTE | 2020-05-14 13:49 | ECG_ITS ---
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 Measurements Intervals [place] Rate: 113 P: 87 MI: 132 QRS: 85 QRSD: 81 T: 68 QT: 317 QTc: 435 Interpretive Statements SINUS TACHYCARDIA RIGHT ATRIAL ENLARGEMENT [0.3mV P WAVE] LEFT ATRIAL ENLARGEMENT [-0.15mV P WAVE IN V1/V2] NONSPECIFIC T-WAVE ABNORMALITY Compared to ECG 05/14/2020 12:01:58 T-wave abnormality now present Electronically Signed On 05-15-2020 16:45:55 CAMPAIGN SPECIALIST by Mingo Donahue M.D. [email or web address]
[2020-05-14 14:15] LABS: Troponin 5 2HR 38.51 ng/L (0-10)
[2020-05-14 14:21] LABS: Troponin 5 2HR Delta -9.49 ABS# (0-10)
[2020-05-14 14:25] LABS: SARS Covid-2 Antigen Negative (Negative)
[2020-05-14 14:33] LABS: ABG PCO2 87.3 mmHg (35-45); ABG PH Result 7.38 (7.35-7.45); Arterial Blood Gas Hematocrit 40.5 % (37-47); Base Excess ABG 21.3 mmol/L (-2.0-2.0); Blood Gas Allen Test Pos; Blood Gas Operator Identificat MONRO; Blood Gas Sample Site Brachial, right; Blood Gas Sample Type Arterial; HCO3 ABG 51.5 mmol/L (22-26); Oxygen Device BIPAP; PO2 ABG 49.2 mmHg (80.0-100.0)
--- NOTE | 2020-05-14 17:41 | P.HP_ITS ---
Providers/Chief Complaint Admitting Physician: Delon Jaimes Chief Complaint: DIFF BREATHING History of Present Illness 59-year-old lady with history of COPD, HIV, GERD, follows with infectious disease in [place], also follows with pulmonology Dr. 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 She proceeds to tell me that she knows what exactly caused her to be short of breath and come to the hospital. She states that she has had her carpets cleaned about a week ago, and since then that the equipment had not been emptied and that her dog's urine had been sitting in the containers and causing a strong urine smell in apartment. She feels that due to this she has been wheezing, and her dogs have as well. She states she has been having some cough, coughing up some black-colored sputum. She says she has not been feeling well, but denies remembering having fever, chills. She still smokes, however, states she had bought 2 packs at the time of last discharge, and that 30 cigarettes have been remaining, asking us to calculate how many cigarettes she has smoked. She states that she occasionally drinks some wine, she also states that she uses medical marijuana, but on rare occasions also uses some methamphetamine, althreese higuera denies using any in the last several weeks stating I was in the hospital . She denies any headache, nausea vomiting, diarrhea, chest pain or pressure, abdominal discomfort. She does also note having swelling in her lower extremities, as well as shortness of breath with lying flat. She has also been bothered today by electrical-like high-pitched sound in her left ear. She is not hearing any voices. Has not had any vision changes, has not had any visual hallucinations. In ER on presentation where she came due to complaint of shortness of breath, stating that she had to increase from her usual 2 L nasal cannula up to 4 L, and still without improvement, was noted to have poor air en try, wheezing on exam, with quite significant hypercapnia, CO2 131 on presentation, ABG 7.2 . She was started on BiPAP support. Received albuterol treatment, a dose of Solu-Medrol. Rapid COVID-19 test was negative. PCR was sent out and pending. Chest x-ray revealed chronic emphysema. Troponin with moderate elevation 48-38.5. EKG without suggestion of acute ischemia. BNP elevated 1513. Incidentally noted ammonia elevated 65. She has remained awake with perhaps minimally diminished alertness in ER, but during my visit fully alert, conversant, but difficult to obtain history, going off on multiple tangents, sometimes avoiding answering questions. She is feeling better. She is requesting for a more substantial oral diet, requesting for regular diet. Review of Systems Const: Denies: fever(s), chills, body aches or malaise Eyes: Denies: change in vision or eye redness ENMT: Reports: tinnitus (L ear); Denies: throat pain, oral sores or ear or mastoid pain Card: Reports: edema and dyspnea on exertion; Denies: chest pain or pre-syncope Resp: Reports: dyspnea, productive cough and change in phlegm color; Denies: hemoptysis GI: Denies: abdominal pain, nausea, vomiting, diarrhea, constipation, hematochezia or melena : Denies: flank pain, urinary frequency or hematuria Musc: Denies: back pain, joint swelling or joint redness Skin/Breast: Denies: rash, sores or new lesions Neuro: Denies: headache(s), numbness in extremities, weakness in extremities, dizziness, confusion or seizure-like activity Endo: Denies: polyuria or polydipsia Yazan/Lymph: Denies: easy bleeding or purpura All/Imm: Denies: urticaria, throat swelling or tongue swelling Medications/Allergies Home Medications Medication Instructions Recorded Confirmed Last Taken Type albuterol sulfate 1.25 mg/3 mL 2.5 mg INHALATION QID PRN 10/03/19 05/14/20 Unknown History solution for nebulization albuterol sulfate 90 mcg/actuation 2 puff INHALATION Q6H PRN 10/03/19 05/14/20 Unknown History aerosol inhaler montelukast 10 mg tablet 10 mg PO DAILY 10/03/19 05/14/20 04/22/20 History sulfamethoxazole 400 See Rx Instructions .ROUTE 10/03/19 05/14/2021 History mg-trimethoprim 80 mg tablet .COMPLEX tab Biktarvy 1 tab PO DAILY@0300 04/23/20 05/14/20 04/23/20 History ipratropium-albuterol 3 ml INHALATION QID PRN 04/23/20 05/14/20 Unknown History aspirin 81 mg PO DAILY 30 Days #30 tab 04/26/20 05/14/20 Unknown Rx atorvastatin 40 mg PO BEDTIME 30 Days #30 tab 04/26/20 05/14/20 Unknown Rx carvedilol 3.125 mg PO BID 30 Days #60 tab 04/26/20 05/14/20 Unknown Rx pantoprazole 40 mg PO DAILY 30 Days #30 tab 04/26/20 05/14/20 Unknown Rx Spiriva with HandiHaler 1 cap INHALATION DAILY 05/05/20 05/14/20 Unknown History budesonide-formoterol [Symbicort] 2 puff INHALATION BID 05/05/20 05/14/20 Unknown History prednisone See Rx Instructions .ROUTE 05/06/20 05/14/20 Unknown Rx .COMPLEX #53 tab Allergies Allergy/AdvReac Type Severity Reaction Status Date / Time Penicillins Allergy ALGY-Difficulty Verified 04/28/20 14:51 Breathing phenobarbital Allergy ALGY-Hives Verified 04/28/20 14:51 Tetanus Vaccines and Toxoid Allergy ALGY-Hives Verified 04/28/20 14:51 PFSH Acute PFSH: Medical History CHF (congestive heart failure) COPD (chronic obstructive pulmonary disease) GERD (gastroesophageal reflux disease) HIV (human immunodeficiency virus infection) Surgical History H/O laparoscopy Family History Mother COPD (chronic obstructive pulmonary disease) Father CAD (coronary artery disease) Social History Smoking and tobacco status: current every day smoker cigarettes Years cigarettes smoked: 50 Number of cigarettes per day: 1-5 [ Other cigarette details: Hx of 1 PPD x 15 Years ] Second hand smoke exposure: Yes Smoking risk assessment/counseling performed?: Yes Alcohol intake: current Alcohol intake frequency: holidays/special occasions only Counseling given: No Substance/Drug Use: current Substance/Drug use frequency: few times a month Substance/Drug use type: Marijuana and Amphetamines Counseling given: Yes Lives independently: Yes Household members: none Marital status: / Current occupational status: disabled History of recent travel: No Current gender identity: Female Vitals/I&O/Wt Last Vital Signs Temp 98.8 F 05/14/20 16:35 Pulse 121 H 05/14/20 16:44 Resp 26 H 05/14/20 16:44 BP 133/79 05/14/20 16:35 Pulse Ox 96 05/14/20 16:44 Weight last 48 hrs Weight 47.627 kg Physical Exam Const: COMMON NORMALS: no acute distress, patient oriented x3 and alert ORIENTATION/CONSCIOUSNESS: Yes awake OTHER: Speaking fast, and full sentences. Going off on tangents. HENMT: COMMON NORMALS: oropharynx normal Neck/C-Spine: COMMON NORMALS: no JVD Resp: COMMON NORMALS: normal respiratory effort and clear to auscultation bilaterally AUSCULTATION: clear to auscultation bilaterally, wheezes and diminished lung sounds Cardio: COMMON NORMALS: no JVD, regular rhythm, S1 normal heart sound present, S2 normal heart sound present and No murmurs present (Cardio) RHYTHM: regular rhythm HEART SOUNDS: S1 normal heart sound present and S2 normal heart sound present GI: COMMON NORMALS: Normal to inspection, nondistended, normoactive bowel sounds present, Soft to palpation and non-tender PALPATION: Yes Soft to palpation Extremity: COMMON NORMALS: no joint enlargement GENERAL: Yes edema (2+ ankles) Neuro: COMMON NORMALS: patient oriented x3 and moves all extremities Skin: COMMON NORMALS: no rashes or lesions noted GENERAL SKIN EXAM: no rashes or lesions noted Urinary Catheter Management^: Angulo: Cath Placed During This Visit: yes Urinary Catheter Date of Insertion: 05/14/20 Urinary Catheter Time of Insertion: 13:18 Data : 05/14/20 11:30 05/14/20 11:30 A&P Assessment and plan (1) Respiratory failure with hypoxia and hypercapnia: Hypoxic and hypercapnic respiratory failure on presentation. With severe hypercapnia. Mild alteration of mental status which improved quite significantly after starting BiPAP. She is not compliant with CPAP at home. Patient still smokes, although has been cutting down. Has COPD exacerbation. Also reports having some issues with recent carpet cleaning, with left over an amputated equipment containers containing dog urine which she feels have contributed to her symptoms. She states he is going to be calling the company that performed cleaning to service the equipment. She is agreeable for additional treatment with steroid, Levaquin, breathing treatments. Will obtain sputum culture. BiPAP support while asleep and as needed. Continue to encourage smoking cessation. Status: Acute Qualifiers: Chronicity: acute on chronic Qualified Code(s): J96.21 - Acute and chronic respiratory failure with hypoxia; J96.22 - Acute and chronic respiratory failure with hypercapnia (2) COPD (chronic obstructive pulmonary disease): COPD with severe acute exacerbation as above. Continue Singulair. Status: Acute (3) CHF (congestive heart failure): CHF exacerbation, grade 2 diastolic dysfunction on last echo. Denies any chest pain or pressure. Moderate troponin elevation noted on initial studies, appears related to respiratory failure. No systemic ischemia on EKG. Will complete troponin EKG series. Lasix. Monitor I&O. Volume status. Status: Acute (4) Nicotine addiction: Discussed smoking cessation for 3 minutes. She states she has been cutting down and intends to continue to do so. Status: Acute (5) Chronic respiratory failure with hypoxia and hypercapnia: She has not been compliant with CPAP at home. States that the machine has repeatedly stopped functioning despite being serviced by the company. Will request case management to look into issue and see if we are able to assist her in any way to have machine serviced again or replaced. Status: Acute (6) HIV (human immunodeficiency virus infection): We will check CD4 count, HIV viral load. She follows with infectious disease and [place]. Continue HIV medication if possible. Chronic suppression with Bactrim 3 times a week. Status: Acute (7) Protein calorie malnutrition: Regular diet. Add protein shakes. Her appetite is very good. Status: Acute Additional A&P Information GERD: Continue PPI. Attestations Medical Necessity Statement*: Admission of over 2 midnights committed for assessment management of acute hypoxic and hypercapnic respiratory failure, COPD with severe exacerbation, CHF exacerbation in a lady who is a current smoker, with underlying HIV and other comorbidities. Coding Level of Care Code Acute Speeder Hand for Chg Fwd Diagnoses Respiratory failure with hypoxia and hypercapnia J96.21; J96.22 Chronicity: acute on chronic COPD (chronic obstructive pulmonary disease) J44.9 CHF (congestive heart failure) I50.9 Nicotine addiction F17.200 Chronic respiratory failure with hypoxia and hypercapnia J96.11; J96.12 HIV (human immunodeficiency virus infection) B20 Protein calorie malnutrition E46
--- NOTE | 2020-05-14 17:49 | ECG_ITS ---
[facility] Test Date: 2020-05-14 Pat Name: Adore Broussard Department: Room: 271 Gender: Female Bug Trimmer: : 1960 Requested By: Maira Gunderson Order Number: [id number] Cherelle MD: Mingo Donahue M.D. Measurements Intervals [place] Rate: 117 P: 86 NJ: 87 QRS: 124 QRSD: 85 T: 71 QT: 314 QTc: 440 Interpretive Statements SINUS TACHYCARDIA WITH SHORT [place] INTERVAL WITH OCCASIONAL VENTRICULAR PREMATURE COMPLEXES LEFT POSTERIOR FASCICULAR BLOCK [QRS AXIS > 109, INFERIOR Q] Compared to ECG 05/14/2020 13:20:26 Ventricular premature complex(es) now present Short [place] interval now present Left posterior fascicular block now present Atrial abnormality no longer present T-wave abnormality no longer present Electronically Signed On 05-15-2020 16:49:07 WAX ROOM SUPERVISOR by Mingo Donahue M.D. [id number]
[2020-05-14] MEDS: FUROsemide 10 mg/mL SDV 2mL 20 MG IVP (18:14)
[2020-05-14 18:17] LABS: Troponin 5 6HR 34.16 ng/L (0-10)
[2020-05-14] MEDS: heparin 5,000 unit/mL INJ 1 mL 5000 UNIT SUBCUT (18:29)
[2020-05-14] MEDS: levofloxacin-dextrose 5 % 750 MG/150 ML PREMIX 100 MG IV (18:30)
[2020-05-14 19:10] LABS: Amphetamines Screen Urine Negative (Negative); Barbiturates Screen Urine Negative (Negative); Benzodiazepines Screen Urine Negative (Negative); Cocaine Screen Urine Negative (Negative); Opiate Screen Urine Negative (Negative); PCP Screen Urine Negative (Negative); THC Screen Urine Negative (Negative)
--- NOTE | 2020-05-14 20:37 | PC.NURSE ---
Received report from off going nurse. Pt's plan of care reviewed. Pt is resting in bed. Respirations are even and unlabored. No s/sx of distress noted. Pt is alert and able to make her own decisions. Pt appears very anxious with sporadic body movement. Pt does come off as rude with delusional thought processes. Pt denies any pains or concerns at this time. Bed in lowest and locked position, call light and water within reach, x's 2 rails up. Bed alarm on. Will continue to monitor pt.
[2020-05-14 21:00] LABS: Glucose Point of Care 467 mg/dL (70-110)
[2020-05-14] MEDS: ipratropium-albuterol 3 mL Neb INHALATION (21:14)
[2020-05-14] MEDS: atorvastatin 40 mg Tablet PO (21:36)
[2020-05-14 21:50] LABS: Glucose Point of Care 445 mg/dL (70-110)
[2020-05-14] MEDS: LORazepam 0.5 mg Tablet 0.25 MG PO (21:51)
[2020-05-14] MEDS: insulin nph human 100 units/1 mL 20 UNIT SUBCUT (22:10)
[2020-05-15] VITALS (13 sets, daily range): BP systolic 129–147; BP diastolic 71–86; PULSE 100–126; RESP 18–26; TEMP 36.6–37.2; O2SAT 90–99
[2020-05-15] MEDS: heparin 5,000 unit/mL INJ 1 mL 5000 UNIT SUBCUT ×3 (01:56→18:38)
[2020-05-15 02:25] LABS: Glucose Point of Care 177 mg/dL (70-110)
[2020-05-15] MEDS: ipratropium-albuterol 3 mL Neb INHALATION ×4 (03:32→20:47)
[2020-05-15 05:49] LABS: Basophils % 0.1 %; Hematocrit 43.6 % (37.0-47.0); Hemoglobin 13.4 g/dL (11.5-15.3); Lymphocytes # 0.3 10^3/uL (0.8-4.8); Mean Corpuscular HGB Conc 30.7 g/dL (30.0-36.0); Mean Corpuscular Hemoglobin 28.5 pg (28.0-34.0); Mean Corpuscular Volume 92.8 fL (81-99); Mean Platelet Volume 10.3 fL (7.4-10.4); Monocytes # 0.3 10^3/uL (0.2-0.9); Monocytes % 2.6 %; Neutrophils # 8.94 10^3/uL (1.8-7.7); Neutrophils % 93.7 %; Nucleated Red Blood Cells % 0 %; Platelet Count 234 10^3/cmm (130-400); Red Cell Distribution Width 12.3 % (12.1-15.1); White Blood Count 9.6 10^3/uL (4.0-10.0)
[2020-05-15 06:19] LABS: Alanine Aminotransferase 22 U/L (0-33); Albumin Level 3.8 g/dL (3.5-5.2); Alkaline Phosphatase 49 IU/L (35-105); Anion Gap 8.7 (5-19); Aspartate Amino Transferase 18 U/L (0-32); Blood Urea Nitrogen 19 mg/dL (6-20); Calcium 9.2 mg/dL (8.5-10.5); Chloride 84 mmol/L (98-107); Globulin 2.2 g/dL (1.3-4.6); Glomerular Filtration Rate 73.7 mL/min (90-130); Glucose 106 mg/dL (65-115); Osmolality Calculated 287 mOsm/kg (285-295); Potassium 4.7 mmol/L (3.5-5.1); Sodium 137 mmol/L (136-145); Thyroid Stimulating Hormone 0.59 uIU/mL (0.27-4.20); Total Bilirubin 0.8 mg/dL (0.15-1.2)
[2020-05-15 06:32] LABS: Glucose Point of Care 167 mg/dL (70-110)
[2020-05-15 06:37] LABS: Carbon Dioxide 49 mmol/L (22-29)
[2020-05-15] MEDS: montelukast sodium 10 mg Tablet PO (09:10)
[2020-05-15] MEDS: carvedilol 3.125 mg Tablet PO ×2 (09:10→18:38)
[2020-05-15] MEDS: FUROsemide 10 mg/mL SDV 2mL 20 MG IVP (09:10)
[2020-05-15] MEDS: aspirin 81 mg EC Tablet PO (09:10)
[2020-05-15] MEDS: pantoprazole DR 40 mg Tablet PO (09:10)
--- NOTE | 2020-05-15 10:44 | PC.CHAP ---
Pastoral Care Encounter/Spiritual Assessment Type of Contact [] Declined grinding machine tender visit [] Patient/Family/Request visit [] Outpatient visit [] Follow-up visit [] Physician referral [] Code/Alert [x] Routine visit [] Staff referral [] Actively dying [] Patient sleeping [] Family support [] [x] Out of room [] Palliative care [] [] Receiving care in room [] Pre-surgical visit [] Trauma [] Long length of stay [] ICU visit [] Other: Relational/Emotional Strength [] Patient feels connected with others/family/visitors/staff [] Distress [] Loneliness/isolation [] Abandonment Spirituality of Patient [] Person of Thea [] Attends Restorationism of their Thea [] Believes in Prayer [] Reads Bible or Presybeterian materials [] There are Spiritual issues to be addressed Irrigation Teacher Interventions [] Prayer [] Active listening [] Non-anxious presence [] Spiritual/emotional support [] Crisis/trauma care [] Spiritual counseling [] Bereavement support [] Provided bereavement packet [] Provided Bible/devotional materials [] Provided toy/stuffed animal, coloring book to patient or family member [] Provided Communion [] Anointing/[place] [] Salvation [] Completed spiritual assessment [] Other: Impact on Illness or Injury [] Angry [] Fearful [] Anxious [] Often cries [] Exhaustion [] Unable to work [] Unable to attend muslim [] Unable to walk/stand [] Unable to read [] Unable to drive [] Unable to eat/drink [] Unable to sleep [] Unable to be with family [] Patient intubated [] Other: Summary Time spent with patient
[2020-05-15 11:51] LABS: Glucose Point of Care 256 mg/dL (70-110)
--- NOTE | 2020-05-15 14:30 | P.PN_ITS ---
Subjective Subjective: Interval history: She is feeling anxious and irritable today. Feels like she cannot catch air/no airflow in the room. Feels hot in the room. Feels claustrophobic. Bothered by construction noise downstairs. Bothered by Angulo catheter. Vitals/I&O/Wt Last Vital Signs Temp 98.0 F 05/15/20 11:45 Pulse 122 H 05/15/20 14:01 Resp 26 H 05/15/20 13:59 BP 129/71 05/15/20 11:45 Pulse Ox 97 05/15/20 13:59 05/14/20 05/15/20 05/15/20 22:59 06:59 14:59 Intake Total 550 / 550 200 / 200 Output Total 900 / 900 900 / 1800 Balance -350 / -350 -900 / -1250 200 / 200 Weight last 48 hrs Weight 38.873 kg Weight 47.627 kg Physical Exam Const: COMMON NORMALS: no acute distress, patient oriented x3 and alert GENERAL APPEARANCE: anxious ORIENTATION/CONSCIOUSNESS: Yes awake OTHER: Speaking fast, and full sentences. HENMT: COMMON NORMALS: oropharynx normal Neck/C-Spine: COMMON NORMALS: no JVD Resp: COMMON NORMALS: normal respiratory effort and clear to auscultation bilaterally AUSCULTATION: clear to auscultation bilaterally, wheezes (less than yesterday) and diminished lung sounds (with some improvement) Cardio: COMMON NORMALS: no JVD, regular rhythm, S1 normal heart sound present, S2 normal heart sound present and No murmurs present (Cardio) RHYTHM: regular rhythm HEART SOUNDS: S1 normal heart sound present and S2 normal heart sound present GI: COMMON NORMALS: Normal to inspection, nondistended, normoactive bowel sounds present, Soft to palpation and non-tender PALPATION: Yes Soft to palpation Extremity: COMMON NORMALS: no joint enlargement GENERAL: Yes edema (2+ ankles) Neuro: COMMON NORMALS: patient oriented x3 and moves all extremities SENSORIUM/ORIENTATION: Yes alert Skin: COMMON NORMALS: no rashes or lesions noted GENERAL SKIN EXAM: no rashes or lesions noted Urinary Catheter Management^: Angulo: Cath Placed During This Visit: yes Reason for Continuing Indwelling Catheter: Accurate Measurement of Urinary Output in Critically Ill Patients Urinary Catheter Date of Insertion: 05/14/20 Urinary Catheter Time of Insertion: 13:18 Data : 05/15/20 05:26 05/15/20 05:26 A&P Assessment and plan (1) Respiratory failure with hypoxia and hypercapnia: Today very anxious, restless, feeling claustrophobic. With air hunger. We are trying to get some relief of her symptoms. Will provide a fan in her room. Decreased temperature. Remove Angulo catheter. She declines any benzodiazepines, does not want morphine for air hunger. States those medications can make her angry. Request for a first generation antihistamine. We will also provide a nicotine patch. We will also change her steroids, cut down from IV steroids which may be contributing to her anxiety, restlessness. Change to oral prednisone. Continue Levaquin. Follow-up sputum culture. BiPAP support while asleep and as needed. Continue to encourage smoking cessation. Status: Acute Qualifiers: Chronicity: acute on chronic Qualified Code(s): J96.21 - Acute and chronic respiratory failure with hypoxia; J96.22 - Acute and chronic respiratory failure with hypercapnia (2) COPD (chronic obstructive pulmonary disease): COPD with severe acute exacerbation as above. Continue Singulair. Status: Acute Qualifiers: COPD type: COPD with acute exacerbation Qualified Code(s): J44.1 - Chronic obstructive pulmonary disease with (acute) exacerbation (3) CHF (congestive heart failure): Edema is improved. In negative balance. Hold additional Lasix for now. Will reassess volume status prior to additional doses. CHF exacerbation, grade 2 diastolic dysfunction on last echo. Denies any chest pain or pressure. Moderate troponin elevation noted on initial studies, not suggestive of acute MO. No systemic ischemia on EKG. Will assess limited echo. Monitor I&O. Volume status. Status: Acute (4) Nicotine addiction: Discussed smoking cessation for 3 minutes. She states she has been cutting down and intends to continue to do so. Nicotine patch. Declines gum. Status: Acute (5) Chronic respiratory failure with hypoxia and hypercapnia: She has not been compliant with CPAP at home. States that the machine has repeatedly stopped functioning despite being serviced by the company. Discussed w case management to look into issue and see if we are able to assist her in any way to have machine serviced again or replaced. Status: Acute (6) HIV (human immunodeficiency virus infection): Requested CD4 count, HIV viral load. She follows with infectious disease and [place]. Continue HIV medication if possible. Chronic suppression with Bactrim 3 times a week. Status: Acute Qualifiers: HIV symptom status: unspecified Qualified Code(s): B20 - Human immunodeficiency virus [HIV] disease (7) Protein calorie malnutrition: Regular diet. Add protein shakes. Her appetite is very good. Status: Acute Additional A&P Information GERD: Continue PPI. Attestations Medical Necessity Statement*: Continue admission for assessment management of severe COPD exacerbation, hypoxic and hypercapnic respiratory failure. Coding Level of Care Code Acute Icing Coater for [facility] Fwd Diagnoses Respiratory failure with hypoxia and hypercapnia J96.21; J96.22 Chronicity: acute on chronic COPD (chronic obstructive pulmonary disease) J44.1 COPD type: COPD with acute exacerbation CHF (congestive heart failure) I50.9 Nicotine addiction F17.200 Chronic respiratory failure with hypoxia and hypercapnia J96.11; J96.12 HIV (human immunodeficiency virus infection) B20 HIV symptom status: unspecified Protein calorie malnutrition E46
--- NOTE | 2020-05-15 14:37 | USCV_ITS ---
Bobo Adore Age: 59 Gender: F : 1960 Exam Date: 05/15/2020 15:07 Ordering Phys: Delon Jaimes MD Technologist: Destinee Dempsey Exam Location: [facility] [place] Indication: trop elevation BP: 124 / 78 HR: 114 Rhythm: Sinus Technical Quality: Technically difficult study MEASUREMENTS (Male / Female) Normal Values 2D ECHO LV Diastolic Diameter PLAX 3.5 cm 4.2 - 5.9 / 3.9 - 5.3 cm LV Systolic Diameter PLAX 2.9 cm IVS Diastolic Thickness 1.6 cm 0.6 - 1.0 / 0.6 - 0.9 cm IVS Systolic Thickness 1.7 cm LVPW Diastolic Thickness 1.5 cm 0.6 - 1.0 / 0.6 - 0.9 cm LVPW Systolic Thickness 1.5 cm RV Chamber Size 2.8 cm LVOT Diameter 2.0 cm LV Ejection Fraction 2D Teich 45.8 % LV Ejection Fraction MOD 2C 53.4 % LV Ejection Fraction 2C AL 51.7 % LA Diameter 2.4 cm LA Width 2.9 cm LA Height 3.4 cm RA Width 2.3 cm RA Height 3.3 cm Aorta at Sinotubular Diameter 2.4 cm M-MODE LV Diastolic Diameter MM 4.0 cm 4.2 - 5.9 / 3.9 - 5.3 cm LV Systolic Diameter MM 2.8 cm LV Ejection Fraction MM Teich 56.1 % IVS Diastolic Thickness MM 1.1 cm 0.6 - 1.0 / 0.6 - 0.9 cm IVS Systolic Thickness MM 1.2 cm LVPW Diastolic Thickness MM 1.5 cm 0.6 - 1.0 / 0.6 - 0.9 cm LVPW Systolic Thickness MM 1.6 cm Aortic Annulus Diameter 2.6 cm LA Ao Ratio MM 0.9 MV E Point Septal Separation 0.2 cm FINDINGS Left Ventricle Normal left ventricular size and systolic function, EF 57 %. Mild left ventricular hypertrophy. No regional wall motion abnormalities. Patient was found to be tachycardic during the study Right Ventricle The right ventricle is normal in size and function. Right Atrium The right atrium is normal in size. Left Atrium The left atrium is normal in size. Mitral Valve Minimally thickened mitral valve Aortic Valve No gross abnormalities no Tricuspid Valve No gross abnormalities noted Pulmonic Valve Pulmonic valve not well visualized. Pericardium Normal pericardium without effusion. Aorta Normal ascending aorta dimension. CONCLUSIONS Normal left ventricular size and systolic function, EF 57 %. Mild left ventricular hypertrophy. No regional wall motion abnormalities. Minimally thickened mitral valve No intracardiac masses or pericardial effusion. No previous study is available for comparison. Patient was found to be tachycardic during the study Dr Darren Blankenship MD [facility] (Electronically Signed) Final Date: 15 May 2020 18:28 S
[2020-05-15 16:50] LABS: Glucose Point of Care 121 mg/dL (70-110)
--- NOTE | 2020-05-15 18:11 | PC.NURSE ---
AT APPROX 1800, WENT IN ROOM TO CHECK ON PT, JAIRO REPORTED THAT THE PT WAS ACTING VERY SUSPICIOUS IN REGARDS TO HER PURSE. I WENT IN AND ASKED HER ABOUT HER HOME MEDS, AND IF THERE WAS ANYTHING THAT WE NEEDED TO KEEP SAFE, IN HER PURSE OR ANY HOME MEDS. PT GOT VERY DEFENSIVE AND ASKED WHAT I MEANT, I EDUC. HER THAT SOME HOME MEDICATIONS CAN INTERACT WITH THE MEDS SHE IS RECEIVING WHILE ADMITTED. SHE GOT VERY IRATE AND TOLD ME THAT SHE DID NOT WANT ME IN HER ROOM AND TO GET HER DR. NOTIFIED DR. MONGE AND CHARGE NURSE.
--- NOTE | 2020-05-15 18:30 | PC.NURSE ---
Pt's nurse, Antonio, and OUTREACH COUNSELOR, Ronal, had concerns pt may have home medications at bedside. OUTREACH COUNSELOR reported pt being very protective of and suspicious with her purse. Pt's nurse assessed pt and asked if she had any home medications or valuables that needed to be locked up. Pt became very defensive and agitated and requested to speak to the charge nurse or leave AMA. This nurse went to pt's bedside to assess the situation further. Pt voiced she would appreciate it if that nurse did not come to her room anymore and asked this nurse to go through her purse so she could prove she did not have anything with her. This nurse did not find any medications in the pt's purse but did find a clinical laboratory scientist that was taken to the nurses station and placed in the pt's chart. Dr. Jaimes at bedside to discuss plan of care and medical necessity to stay in the hospital. Pt agreed to stay as long as she could have a different nurse. These accommodations were made and pt was agreeable to the plan of care.
[2020-05-15] MEDS: levofloxacin-dextrose 5 % 750 MG/150 ML PREMIX 100 MG IV (18:37)
[2020-05-15] MEDS: predniSONE 20 mg Tablet 40 MG PO (18:38)
[2020-05-15] MEDS: atorvastatin 40 mg Tablet PO (20:43)
[2020-05-15] MEDS: acetaminophen 325 mg Tablet 650 MG PO (20:43)
[2020-05-15] MEDS: budesonide 0.5 mg/2 mL Neb INHALATION (20:47)
[2020-05-15 21:43] LABS: Glucose Point of Care 244 mg/dL (70-110)
--- NOTE | 2020-05-15 22:00 | PC.NURSE ---
Patient not on telemetry. No telemetry boxes available.
[2020-05-16] VITALS (10 sets, daily range): BP systolic 136–163; BP diastolic 63–88; PULSE 100–120; RESP 17–19; TEMP 36.5–37.3; O2SAT 95–98
[2020-05-16] MEDS: heparin 5,000 unit/mL INJ 1 mL 5000 UNIT SUBCUT ×2 (01:17→09:15)
[2020-05-16] MEDS: ipratropium-albuterol 3 mL Neb INHALATION ×2 (03:54→08:05)
[2020-05-16 06:21] LABS: Basophils % 0.1 %; Hematocrit 40.1 % (37.0-47.0); Hemoglobin 12.7 g/dL (11.5-15.3); Lymphocytes # 0.3 10^3/uL (0.8-4.8); Lymphocytes % 3.5 %; Mean Corpuscular HGB Conc 31.7 g/dL (30.0-36.0); Mean Corpuscular Hemoglobin 28.6 pg (28.0-34.0); Mean Corpuscular Volume 90.3 fL (81-99); Mean Platelet Volume 10.6 fL (7.4-10.4); Monocytes # 0.2 10^3/uL (0.2-0.9); Monocytes % 2.3 %; Neutrophils # 8.25 10^3/uL (1.8-7.7); Neutrophils % 93.6 %; Nucleated Red Blood Cells % 0 %; Platelet Count 214 10^3/cmm (130-400); Red Blood Count 4.44 10^6/uL (4.1-5.3); Red Cell Distribution Width 12.8 % (12.1-15.1); White Blood Count 8.8 10^3/uL (4.0-10.0)
[2020-05-16 06:32] LABS: Glucose Point of Care 275 mg/dL (70-110)
[2020-05-16 06:41] LABS: Alanine Aminotransferase 20 U/L (0-33); Albumin Level 3.5 g/dL (3.5-5.2); Alkaline Phosphatase 42 IU/L (35-105); Anion Gap 7.5 (5-19); Aspartate Amino Transferase 17 U/L (0-32); Blood Urea Nitrogen 25 mg/dL (6-20); Calcium 8.7 mg/dL (8.5-10.5); Chloride 84 mmol/L (98-107); Globulin 1.9 g/dL (1.3-4.6); Glomerular Filtration Rate 56.9 mL/min (90-130); Glucose 288 mg/dL (65-115); Osmolality Calculated 293 mOsm/kg (285-295); Potassium 4.5 mmol/L (3.5-5.1); Sodium 134 mmol/L (136-145); Total Bilirubin 0.8 mg/dL (0.15-1.2); Total Protein 5.4 g/dL (6.6-8.7)
[2020-05-16 07:22] LABS: Carbon Dioxide 47 mmol/L (22-29)
[2020-05-16] MEDS: budesonide 0.5 mg/2 mL Neb INHALATION (08:05)
[2020-05-16] MEDS: montelukast sodium 10 mg Tablet PO (09:13)
[2020-05-16] MEDS: aspirin 81 mg EC Tablet PO (09:13)
[2020-05-16] MEDS: predniSONE 20 mg Tablet 40 MG PO (09:14)
[2020-05-16] MEDS: pantoprazole DR 40 mg Tablet PO (09:14)
[2020-05-16] MEDS: carvedilol 3.125 mg Tablet PO (09:14)
[2020-05-16 10:50] LABS: Glucose Point of Care 241 mg/dL (70-110)
--- NOTE | 2020-05-16 14:22 | PM.DCS ---
Discharge Providers Date of Admission: 05/14/20 14:44 Date of Discharge: May 16, 2020 Attending Provider at Admission: Delon Jaimes Attending Provider at Discharge: Delon Jaimes Diagnoses at Discharge Discharge Diagnosis (1) Respiratory failure with hypoxia and hypercapnia: Status: Acute Qualifiers: Chronicity: acute on chronic Qualified Code(s): J96.21 - Acute and chronic respiratory failure with hypoxia; J96.22 - Acute and chronic respiratory failure with hypercapnia (2) COPD (chronic obstructive pulmonary disease): Status: Acute Qualifiers: COPD type: COPD with acute exacerbation Qualified Code(s): J44.1 - Chronic obstructive pulmonary disease with (acute) exacerbation (3) CHF (congestive heart failure): Status: Acute (4) Nicotine addiction: Status: Acute (5) Chronic respiratory failure with hypoxia and hypercapnia: Status: Acute (6) HIV (human immunodeficiency virus infection): Status: Acute Qualifiers: HIV symptom status: unspecified Qualified Code(s): B20 - Human immunodeficiency virus [HIV] disease (7) Protein calorie malnutrition: Status: Acute Reason for Visit Reason for Visit: DIFF BREATHING Hospital Course Hospital Course 57-year-old lady with history of COPD, chronically on 2 L nasal cannula oxygen, with patch adherence with CPAP therapy due to stating the machine has been intermittently nonfunctioning, history of HIV, GERD, reports is on chronic prednisone, was admitted and treated after presenting with respiratory failure with hypoxia, severe hypercapnia, and severe COPD exacerbation. She had a recent admission here 05/04-05/06 for similar reasons. She still smokes, although states that she has been cutting down, and since last discharge had smoked only about 10 cigarettes. Her presentation ABG was 7.2 1/131/206/50 2.3. She was started on BiPAP support. With rapid improvement to 7.38/87.3/49.2/51.5. She received treatment with IV steroid, Levaquin, nebulizer treatments. Initially with IV steroid, subsequently transition to oral which she tolerated well. Had an episode of fairly severe anxiety, with air hunger, appears was combination secondary to COPD exacerbation, hypoxia, possibly also IV steroids. Nicotine withdrawal. On admission reported she had intermittently used amphetamine in the past, but denied recent use. Withdrawal was briefly considered, however, symptoms really rapidly resolved with supportive care, transition to oral steroids, improvement in oxygenation, CO2, nicotine patch. Initially with persistent tachycardia, sinus, suspected secondary to advanced COPD, exacerbation, hypoxia. Anxiety. Is gradually improved. D-dimer was not elevated. She remained afebrile. CD4 and viral load requested and pending, will need to be followed up. She was continued on her prophylactic Bactrim dosing in the hospital. Initially also treated with Lasix due to lower extremity edema, with noted grade 2 diastolic function in the last echo, however, volume status improved rapidly. Her respiratory condition continued to improve. Air entry improving. Wheezing resolving. She is feeling much better, today request to return home. She reports that her CPAP was brought here, and was checked and is functioning properly, and so she states will be using it at home. Weight gain discussed in detail smoking, and its risks to her health, she stated understanding and will be continuing trying to quit. She is encouraged to follow-up with her chief lifestyle officer, and infectious disease specialist. Physical Exam Const: COMMON NORMALS: no acute distress, patient oriented x3 and alert GENERAL APPEARANCE: comfortable ORIENTATION/CONSCIOUSNESS: Yes awake OTHER: Good spirits. Conversant. Speaks in full snetences. HENMT: COMMON NORMALS: oropharynx normal Neck/C-Spine: COMMON NORMALS: no JVD Resp: COMMON NORMALS: normal respiratory effort and clear to auscultation bilaterally AUSCULTATION: clear to auscultation bilaterally OTHER: Wheezing resolving. Cardio: COMMON NORMALS: no JVD, regular rhythm, S1 normal heart sound present, S2 normal heart sound present and No murmurs present (Cardio) RHYTHM: regular rhythm HEART SOUNDS: S1 normal heart sound present and S2 normal heart sound present GI: COMMON NORMALS: Normal to inspection, nondistended, normoactive bowel sounds present, Soft to palpation and non-tender PALPATION: Yes Soft to palpation Extremity: COMMON NORMALS: no joint enlargement and no pedal edema Neuro: COMMON NORMALS: patient oriented x3 and moves all extremities SENSORIUM/ORIENTATION: Yes alert Skin: COMMON NORMALS: no rashes or lesions noted GENERAL SKIN EXAM: no rashes or lesions noted Urinary Catheter Management^: Angulo: Cath Placed During This Visit: yes, but has since been removed by the nurse Reason for Continuing Indwelling Catheter: Acute Urinary Retention or Obstruction Urinary Catheter Date of Insertion: 05/14/20 Urinary Catheter Time of Insertion: 13:18 Date Urinary Catheter Removed: 05/15/20 Time Urinary Catheter Discontinued: 14:25 Discharge Data Data Completed and Pending: Completed Studies During Hospitalization Category Date Time Status XR chest 1V [place] ble [id number] Stat Exams 05/14/20 11:50 Completed CV echo limited 9 3308 Routine Ultrasound 05/15/20 14:37 Completed Pending at discharge Category Date Time Status Complete Blood Co unt w/Auto AM LABS Lab 05/17/20 04:00 Ordered Comprehensive Met abolic Panel AM LA BS Lab 05/17/20 04:[address] [facility] Routi ne Lab 05/14/20 13:20 Received HIV RNA (PCR) Karthikeyan nt Routine Lab 05/14/20 17:40 Received Miscellaneous Priyanka t Routine Lab 05/14/20 17:40 Received Sputum Culture an d Gram Stain Routi ne Lab 05/15/20 12:08 Results Labs from last 24 hours 05/16/20 05/16/20 05/16/20 10:40 06:15 05:07 WBC RBC Hgb Hct MCV MCH MCHC RDW Plt Count MPV Neut % (Auto) Lymph % (Auto) Dundy % (Auto) Eos % (Auto) Baso % (Auto) Neut # (Auto) Lymph # (Auto) Dundy # (Auto) Eos # (Auto) Baso # (Auto) Nucleated RBC % (a uto) Nucleated RBCs # D-Dimer Sodium 134 L Potassium 4.5 Chloride 84 L Carbon Dioxide 47 H* Anion Gap 7.5 BUN 25 H Creatinine 1.0 H GFR Calculation 56.9 L Glucose 288 H POC Glucose 241 H 275 H Calculated Osmolal ity 293 Calcium 8.7 Total Bilirubin 0.8 AST 17 ALT 20 Alkaline Phosphata se 42 Total Protein 5.4 L Albumin 3.5 Globulin 1.9 05/16/20 05/15/20 05/15/20 05:07 20:11 19:17 WBC 8.8 RBC 4.44 Hgb 12.7 Hct 40.1 MCV 90.3 MCH 28.6 MCHC 31.7 RDW 12.8 Plt Count 214 MPV 10.6 H Neut % (Auto) 93.6 Lymph % (Auto) 3.5 Dundy % (Auto) 2.3 Eos % (Auto) 0.0 Baso % (Auto) 0.1 Neut # (Auto) 8.25 H Lymph # (Auto) 0.3 L Dundy # (Auto) 0.2 Eos # (Auto) 0.0 Baso # (Auto) 0.0 Nucleated RBC % (a uto) 0 Nucleated RBCs # 0.0 D-Dimer 0.30 Sodium Potassium Chloride Carbon Dioxide Anion Gap BUN Creatinine GFR Calculation Glucose POC Glucose 244 H Calculated Osmolal ity Calcium Total Bilirubin AST ALT Alkaline Phosphata se Total Protein Albumin Globulin 05/15/20 16:42 WBC RBC Hgb Hct MCV MCH MCHC RDW Plt Count MPV Neut % (Auto) Lymph % (Auto) Dundy % (Auto) Eos % (Auto) Baso % (Auto) Neut # (Auto) Lymph # (Auto) Dundy # (Auto) Eos # (Auto) Baso # (Auto) Nucleated RBC % (a uto) Nucleated RBCs # D-Dimer Sodium Potassium Chloride Carbon Dioxide Anion Gap BUN Creatinine GFR Calculation Glucose POC Glucose 121 H Calculated Osmolal ity Calcium Total Bilirubin AST ALT Alkaline Phosphata se Total Protein Albumin Globulin Vitals: Last Vital Signs Temp 99.1 F 05/16/20 11:27 Pulse 100 05/16/20 11:27 Resp 18 05/16/20 11:27 BP 149/71 05/16/20 11:27 Pulse Ox 96 05/16/20 11:27 Discharge Plan Discharge Patient Disposition: Home Condition: Stable Prescriptions: New levofloxacin 750 mg tablet 750 mg PO DAILY Qty: 5 RF: 0 prednisone 10 mg tablet See Rx Instructions .ROUTE .COMPLEX Qty: 20 RF: 0 Continued sulfamethoxazole-trimethoprim [Bactrim] 400-80 mg tablet See Rx Instructions .ROUTE .COMPLEX RF: 0 montelukast [Singulair] 10 mg tablet 10 mg PO DAILY RF: 0 albuterol sulfate [ProAir HFA] 90 mcg/actuation HFA aerosol inhaler 2 puff INHALATION Q6H PRN (Reason: Shortness Of Breath) RF: 0 Biktarvy 50-200-25 mg tablet 1 tab PO DAILY@0300 RF: 0 atorvastatin 40 mg Tablet 40 mg PO BEDTIME 30 Days Qty: 30 RF: 0 aspirin 81 mg Tablet,Delayed Release (Dr/Ec) 81 mg PO DAILY 30 Days Qty: 30 RF: 0 carvedilol 3.125 mg Tablet 3.125 mg PO BID 30 Days Qty: 60 RF: 0 pantoprazole 40 mg Tablet,Delayed Release (Dr/Ec) 40 mg PO DAILY 30 Days Qty: 30 RF: 0 Spiriva with HandiHaler 18 mcg Capsule, W/Inhalation Device 1 cap INHALATION DAILY RF: 0 budesonide-formoterol [Symbicort] 160-4.5 mcg/actuation Hfa Aerosol Inhaler 2 puff INHALATION BID RF: 0 ipratropium-albuterol 0.5 mg-3 mg(2.5 mg base)/3 mL Solution For Nebulization 3 ml INHALATION QID PRN (Reason: Shortness Of Breath) Qty: 180 RF: 0 Discontinued albuterol sulfate 1.25 mg/3 mL solution for nebulization 2.5 mg INHALATION QID PRN (Reason: Shortness Of Breath) RF: 0 prednisone 10 mg tablet See Rx Instructions .ROUTE .COMPLEX Qty: 53 RF: 0 Discharge Orders: Discharge Order (Routine); Ordered 05/16/20 Ordered By: Delon Jaimes Referrals: Ta Salas MD [Referring] - 4-7 days Yamilex Bearden MD [Physician] - 1 week (Call on Tuesday to mke an appointment to be seen within a week.) Discharge Diet: Cardiac Discharge Activity: Increase activity as tolerated, Oxygen as instructed and Cpap/Bipap as instructed Patient Instructions: Prednisone (By mouth), Levofloxacin (By mouth), Ipratropium/Albuterol (By breathing), How to Stop Smoking (GEN), Cigarette Smoking and Your Health (GEN), Chronic Obstructive Pulmonary Disease (GEN) Activity Restrictions/Additional Instructions: Please stop smoking as this will lead to progression of lung disease, worsening of breathing failure, low oxygen levels, buildup of carbon dioxide, in addition to other risks including heart disease, stroke, and various cancers. Please never smoke anywhere near oxygen due to severe fire hazard. Please wear your CPAP anytime you are asleep or napping. Resume follow-up with your infectious disease doctor. 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
--- NOTE | 2020-05-16 15:49 | PC.NURSE ---
Discharge paperwork completed with patient, returned home family development extension specialist, meds to beds delivered and patient verbalized will pharmacy picking technician other prescriptions on the way out, belongings gathered for patient.
[2020-05-17 15:02] LABS: HIV RNA (CPY/ML) <1.30 NOT DETECTED (NOT DETECTED); HIV RNA LOG <20 NOT DETECTED copies/mL (NOT DETECTED)
[2020-05-18 14:53] LABS: Coronavirus Test Green County Not Detected
== END 2020-05-16 16:18 | disposition home or self-care (01) | DRG 189 ==
LOC: ER 15:09 → MEDSURG 16:07
PROVIDERS: Admitting Provider Internal Medicine; Emergency Provider Emergency Medicine; Visit Provider Internal Medicine
DX: J96.21 Acute and chronic respiratory failure with hypoxia (principal); I50.31 Acute diastolic (congestive) heart failure; B20 Human immunodeficiency virus [HIV] disease; E46 Unspecified protein-calorie malnutrition; Z68.1 Body mass index [BMI] 19.9 or less, adult; J96.22 Acute and chronic respiratory failure with hypercapnia; J43.9 Emphysema, unspecified; K21.9 Gastro-esophageal reflux disease without esophagitis; Z79.52 Long term (current) use of systemic steroids; F17.210 Nicotine dependence, cigarettes, uncomplicated; F15.90 Other stimulant use, unspecified, uncomplicated; F12.90 Cannabis use, unspecified, uncomplicated; Z99.81 Dependence on supplemental oxygen; F41.9 Anxiety disorder, unspecified; Z79.51 Long term (current) use of inhaled steroids; Z79.82 Long term (current) use of aspirin
CPT/HCPCS: 36415; 36416; 36600; 51702; 71045; 80053; 80306; 81001; 82140; 82803; 82962; 83605; 83690; 83735; 83880; 84443; 84484; 85025; 85378; 85610; 86361; 87070; 87205; 87426; 87536; 87635; 93005; 93308; 94640; 94660; 96372; 96374; 99291; J1644; J1815; J1940; J1956; J2930; J7512; J7626

== ENCOUNTER 2020-05-23 06:48 | Emergency (ER) | payer MEDICAID, SELFPAY ==
[2020-05-23] VITALS (15 sets, daily range): BP systolic 109–144; BP diastolic 70–89; PULSE 108–130; RESP 20–32; TEMP 37–37.3; O2SAT 92–100; BMI 15.0
--- NOTE | 2020-05-23 06:53 | XR_ITS ---
WS: [id number] PORTABLE CHEST HISTORY: dyspnea/cough COMPARISON: 05/04/2020. Mild pulmonary hyperexpansion. No pneumonia or interval change. Normal vasculature. No pleural effusi on or pneumothorax. Cardiac size: Normal. Mediastinum/Aorta: Normal mediastinum. Callus formation noted surrounding which is probably the sixth rib. XR/XR chest 1V portable [id number] IMPRESSION: Chronic emphysema with no pneumonia or interval change.
--- NOTE | 2020-05-23 06:53 | ECG_ITS ---
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 Measurements Intervals [place] Rate: 122 P: 83 MD: 120 QRS: 87 QRSD: 71 T: 81 QT: 338 QTc: 482 Interpretive Statements SINUS TACHYCARDIA Compared to ECG 05/14/2020 17:45:55 Short MD interval no longer present Left posterior fascicular block no longer present Electronically Signed On 05-24-2020 11:16:05 ARTS MANAGER by Marianna Guadalupe M.D. [id number]
[2020-05-23 07:16] LABS: ABG PH Result 7.37 (7.35-7.45); Alveolar-Arterial Oxygen Gradi 6.1 mmHg (5-10); Arterial Blood Gas Hematocrit 38.6 % (37-47); Base Excess ABG 16.1 mmol/L (-2.0-2.0); Blood Gas Allen Test Pos; Blood Gas Operator Identificat MONRO; Blood Gas Sample Site Brachial, right; Blood Gas Sample Type Arterial; Carboxyhemoglobin 1.1 %THgb (0.4-20.1); HCO3 ABG 45.2 mmol/L (22-26); HGB O2 Sat 90.8 % (95-100); Ionized Calcium Level - ABG 1.2 mmol/L (1.1-1.4); Methemoglobin 0.8 % (0.4-1.5); Oxygen Device BIPAP; Oxygen Saturation ABG 92.5; PO2 ABG 59.3 mmHg (80.0-100.0); Potassium Level - ABG 4.5 mmol/L (3.5-5.0); Total Hemoglobin 12.6 g/dL (12-16)
[2020-05-23 07:17] LABS: ABG PCO2 78.8 mmHg (35-45)
--- NOTE | 2020-05-23 07:27 | W.ED.SOB ---
HPI - SOB/Dyspnea General: Chief Complaint: Shortness of Breath/Dyspnea Stated Complaint: sob Time Seen by Provider: 05/23/20 06:50 History of Present Illness: HPI Narrative: 59 yo female present to the ER with complainst of difficulty breathing for last 4 days. EMS arrival they found the trilogy machine she has at home was on standby. She was on a nasal cannula as well. Patient states she stopped smoking 4 days ago. Patient is a longtime smoker also has a history of HIV. She has severe COPD and congestive heart failure. Patient has had multiple hospitalizations and evaluations for hypercapnic respiratory failure. She denies fever denies change in baseline cough or productive cough. MD elicited complaint: shortness of breath and cough Pertinent past history: COPD, congestive heart failure and HIV Onset (ago): day(s) (4) Context: medication noncompliance Timing: constant Severity: moderate Exacerbating factors: exertion Relieving factors: oxygen, rest and upright position Known history of: COPD, congestive heart failure and other (HIV) Associated symptoms: Reports orthopnea; Deny abdominal pain, chest congestion, chest pain, cough, diaphoresis, dizziness, extremity pain, fever(s), hemoptysis, lightheadedness, myalgias, nausea, palpitations, paresthesias, polydipsia, polyuria, rash, sense of impending doom, syncope or vomiting Treatment prior to arrival: oxygen Review of Systems Const: Denies: fever(s) or diaphoresis ENMT: Denies: throat pain, ear or mastoid pain, nasal discharge or nasal congestion Card: Reports: swelling of feet/ankles, dyspnea on exertion and orthopnea; Denies: chest pain, palpitations, lightheadedness or syncope Resp: Reports: dyspnea, non-productive cough and wheezing; Denies: hemoptysis or chest congestion GI: Denies: abdominal pain, nausea or vomiting : Denies: flank pain, difficulty voiding, dysuria, urinary frequency or urinary urgency Musc: Denies: extremity pain Skin/Breast: Denies: rash or pruritus Neuro: Denies: dizziness Endo: Denies: polyuria or polydipsia FOR[facility] ED PFSH: Medical History Acute hypercapnic respiratory failure CHF (congestive heart failure) Chronic respiratory failure with hypoxia and hypercapnia COPD (chronic obstructive pulmonary disease) GERD (gastroesophageal reflux disease) HIV (human immunodeficiency virus infection) HIV (human immunodeficiency virus infection) Nicotine addiction Protein calorie malnutrition Respiratory failure with hypoxia and hypercapnia Surgical History H/O laparoscopy Family History Mother COPD (chronic obstructive pulmonary disease) Father CAD (coronary artery disease) Social History Smoking and tobacco status: current every day smoker cigarettes Years cigarettes smoked: 50 [ Other cigarette details: Hx of 1 PPD x 15 Years ] Second hand smoke exposure: Yes Smoking risk assessment/counseling performed?: Yes Alcohol intake: current Alcohol intake frequency: holidays/special occasions only Counseling given: No Counseling given: Yes Lives independently: Yes Household members: none Marital status: / Current occupational status: disabled History of recent travel: No Current gender identity: Female Physical Exam HENMT: COMMON NORMALS: normocephalic, atraumatic and hearing grossly normal bilaterally HEAD & SCALP: normocephalic and atraumatic Neck/C-Spine: COMMON NORMALS: no JVD Resp: AUSCULTATION: rhonchi, wheezes and diminished lung sounds Cardio: COMMON NORMALS: no JVD, regular rate, regular rhythm and No murmurs present (Cardio) RATE: regular rate RHYTHM: regular rhythm GI: COMMON NORMALS: Soft to palpation and No hepatosplenomegaly present AUSCULTATION: Yes normoactive bowel sounds PALPATION: Yes Soft to palpation, No Tenderness to palpation present (GI), No Guarding due to palpation present (GI) and Yes No hepatosplenomegaly present Extremity: COMMON NORMALS: normal to inspection, capillary refill normal, no clubbing, cyanosis or edema, no calf tenderness and no pedal edema Skin: COMMON NORMALS: no rashes or lesions noted GENERAL SKIN EXAM: no rashes or lesions noted Procedures EJ/Peripheral Line Arm R: Time Out Performed: Yes Skin Cleansed in Sterile Fashion: Yes Size (gauge): 20 IV Secured and Dressing Applied: Yes Patient Tolerated Procedure: well Additional Comments: Ultrasound-guided IV placement in the right forearm. First blood culture as well as laboratory work drawn from this IV. Course Vital Signs: Vital signs: Vital Signs Temperature 98.6 F 05/23/20 13:02 Pulse Rate 118 H 05/23/20 15:08 Respiratory Rate 22 H 05/23/20 15:08 Blood Pressure 125/80 05/23/20 15:08 Pulse Oximetry 100 05/23/20 15:08 MDM - SOB/Dyspnea MDM Narrative: Medical decision making narrative: She is doing much better she does not wish to stay. We will discharge her home had respiratory therapy review her use of the trilogy and reeducated her. Continue current medications follow-up with her primary care doctor. Reviewed ABG she is basically at her baseline. She does not wish any further treatment. Lab Data: Labs: Lab Results 05/23/20 05/23/20 05/23/20 Range/Units 07:02 08:20 08:48 WBC (4.0-10.0) 10^3/ uL RBC (4.1-5.3) 10^6/u L Hgb (11.5-15.3) g/dL Hct (37.0-47.0) % MCV (81-99) fL MCH (28.0-34.0) pg MCHC (30.0-36.0) g/dL RDW (12.1-15.1) % Plt Count (130-400) 10^3/c mm MPV (7.4-10.4) fL Neut % (Auto) % Lymph % (Auto) % Millard % (Auto) % Eos % (Auto) % Baso % (Auto) % Neut # (Auto) (1.8-7.7) 10^3/u L Lymph # (Auto) (0.8-4.8) 10^3/u L Millard # (Auto) (0.2-0.9) 10^3/u L Eos # (Auto) (0.0-0.8) 10^3/u L Baso # (Auto) (0.0-0.1) 10^3/u L Nucleated RBC % (a uto) % Nucleated RBCs # /100WBC Specimen Type Arterial Sample Site Brachial, right ABG pH 7.37 (7.35-7.45) ABG pCO2 78.8 H* (35-45) mmHg ABG pO2 59.3 L (80.0-100.0) mmH g ABG HCO3 45.2 H (22-26) mmol/L ABG O2 Saturation 92.5 ABG Base Excess 16.1 H (-2.0-2.0) mmol/ L Adrian Test Pos A-a O2 Gradient 6.1 (5-10) mmHg Hematocrit 38.6 (37-47) % Hgb O2 Saturation 90.8 L (95-100) % Carboxyhemoglobin 1.1 (0.4-20.1) %THgb Methemoglobin 0.8 (0.4-1.5) % Total Hemoglobin 12.6 (12-16) g/dL Sodium 134.0 (131-143) mmol/L Potassium 4.5 (3.5-5.0) mmol/L Glucose 98.0 (70-115) mg/dL Ionized Calcium 1.2 (1.1-1.4) mmol/L O2 Delivery Device Bipap O2 Liters/Min 2.0 % FiO2 28.0 % Tidal Volume 0.50 PEEP 6.0 cmH20 CPAP 8.0 cmH20 [employer] Teacher ID [place] Chloride (98-107) mmol/L Carbon Dioxide (22-29) mmol/L Anion Gap (5-19) BUN (6-20) mg/dL Creatinine (0.5-0.9) mg/dL GFR Calculation (90-130) mL/min Calculated Osmolal ity (285-295) mOsm/k g Lactic Acid 0.9 (0.5-2.2) mmol/L Calcium (8.5-10.5) mg/dL Magnesium (1.7-2.3) mg/dL Total Bilirubin (0.15-1.2) mg/dL AST (0-32) U/L ALT (0-33) U/L Alkaline Phosphata se (35-105) IU/L Ammonia (11-51) umol/L Creatine Kinase (26-192) U/L Troponin T Baselin e (0-10) ng/L Troponin T 120 Min [place] (0-10) ng/L Delta Troponin T (0-10) ABS# Total Protein (6.6-8.7) g/dL Albumin (3.5-5.2) g/dL Globulin (1.3-4.6) g/dL Lipase (13-60) U/L Urine Color Yellow (Yellow) Urine Appearance Cloudy (CLEAR) Urine pH 6 (5-7) Ur Specific Gravit y 1.015 (1.005-1.030) Urine Protein Neg (Negative) Urine Glucose (UA) Norm (Normal) Urine Ketones Negative (Negative) Urine Blood Neg (Negative) Urine Nitrate Negative (Negative) Urine Bilirubin Neg (Negative) Urine Urobilinogen Norm (Negative) mg/dL Ur Leukocyte [place] ase Negative (Negative) Urine RBC 0-4 H (0-2) /hpf Urine WBC 0-4 H (0-5) /hpf Ur Squamous Epith Cells Too numerous to c nt H (0-5) /hpf Amorphous Sediment Not Reportable Urine Bacteria 1+ H (NONE) /hpf Urine Yeast 2+ H /hpf 05/23/20 05/23/20 05/23/20 Range/Units 08:48 08:48 08:48 WBC 6.9 (4.0-10.0) 10^3/ uL RBC 4.89 (4.1-5.3) 10^6/u L Hgb 14.0 (11.5-15.3) g/dL Hct 46.2 (37.0-47.0) % MCV 94.5 (81-99) fL MCH 28.6 (28.0-34.0) pg MCHC 30.3 (30.0-36.0) g/dL RDW 12.6 (12.1-15.1) % Plt Count 159 (130-400) 10^3/c mm MPV 10.0 (7.4-10.4) fL Neut % (Auto) 77.3 % Lymph % (Auto) 11.6 % Millard % (Auto) 8.0 % Eos % (Auto) 2.5 % Baso % (Auto) 0.3 % Neut # (Auto) 5.35 (1.8-7.7) 10^3/u L Lymph # (Auto) 0.8 (0.8-4.8) 10^3/u L Millard # (Auto) 0.6 (0.2-0.9) 10^3/u L Eos # (Auto) 0.2 (0.0-0.8) 10^3/u L Baso # (Auto) 0.0 (0.0-0.1) 10^3/u L Nucleated RBC % (a uto) 0 % Nucleated RBCs # 0.0 /100WBC Specimen Type Sample Site ABG pH (7.35-7.45) ABG pCO2 (35-45) mmHg ABG pO2 (80.0-100.0) mmH g ABG HCO3 (22-26) mmol/L ABG O2 Saturation ABG Base Excess (-2.0-2.0) mmol/ L Adrian Test A-a O2 Gradient (5-10) mmHg Hematocrit (37-47) % Hgb O2 Saturation (95-100) % Carboxyhemoglobin (0.4-20.1) %THgb Methemoglobin (0.4-1.5) % Total Hemoglobin (12-16) g/dL Sodium 134 L (131-143) mmol/L Potassium 4.2 (3.5-5.0) mmol/L Glucose 83 (70-115) mg/dL Ionized Calcium (1.1-1.4) mmol/L O2 Delivery Device O2 Liters/Min % FiO2 % Tidal Volume PEEP cmH20 CPAP cmH20 [employer] Teacher ID Chloride 86 L (98-107) mmol/L Carbon Dioxide 45 H* (22-29) mmol/L Anion Gap 7.2 (5-19) BUN 6 (6-20) mg/dL Creatinine 0.6 (0.5-0.9) mg/dL GFR Calculation 102.7 (90-130) mL/min Calculated Osmolal ity 275 L (285-295) mOsm/k g Lactic Acid (0.5-2.2) mmol/L Calcium 9.3 (8.5-10.5) mg/dL Magnesium 2.0 (1.7-2.3) mg/dL Total Bilirubin 0.9 (0.15-1.2) mg/dL AST 26 (0-32) U/L ALT 35 H (0-33) U/L Alkaline Phosphata se 63 (35-105) IU/L Ammonia 19 (11-51) umol/L Creatine Kinase 47 (26-192) U/L Troponin T Baselin e (0-10) ng/L Troponin T 120 Min [place] (0-10) ng/L Delta Troponin T (0-10) ABS# Total Protein 7.3 (6.6-8.7) g/dL Albumin 4.4 (3.5-5.2) g/dL Globulin 2.9 (1.3-4.6) g/dL Lipase 40 (13-60) U/L Urine Color (Yellow) Urine Appearance (CLEAR) Urine pH (5-7) Ur Specific Gravit y (1.005-1.030) Urine Protein (Negative) Urine Glucose (UA) (Normal) Urine Ketones (Negative) Urine Blood (Negative) Urine Nitrate (Negative) Urine Bilirubin (Negative) Urine Urobilinogen (Negative) mg/dL Ur Leukocyte [place] ase (Negative) Urine RBC (0-2) /hpf Urine WBC (0-5) /hpf Ur Squamous Epith Cells (0-5) /hpf Amorphous Sediment Urine Bacteria (NONE) /hpf Urine Yeast /hpf 05/23/20 05/23/20 05/23/20 Range/Units 08:48 10:21 10:50 WBC (4.0-10.0) 10^3/ uL RBC (4.1-5.3) 10^6/u L Hgb (11.5-15.3) g/dL Hct (37.0-47.0) % MCV (81-99) fL MCH (28.0-34.0) pg MCHC (30.0-36.0) g/dL RDW (12.1-15.1) % Plt Count (130-400) 10^3/c mm MPV (7.4-10.4) fL Neut % (Auto) % Lymph % (Auto) % Millard % (Auto) % Eos % (Auto) % Baso % (Auto) % Neut # (Auto) (1.8-7.7) 10^3/u L Lymph # (Auto) (0.8-4.8) 10^3/u L Millard # (Auto) (0.2-0.9) 10^3/u L Eos # (Auto) (0.0-0.8) 10^3/u L Baso # (Auto) (0.0-0.1) 10^3/u L Nucleated RBC % (a uto) % Nucleated RBCs # /100WBC Specimen Type Arterial Sample Site Brachial, left ABG pH 7.40 (7.35-7.45) ABG pCO2 76.2 H* (35-45) mmHg ABG pO2 73.6 L (80.0-100.0) mmH g ABG HCO3 46.8 H (22-26) mmol/L ABG O2 Saturation 96.3 ABG Base Excess 18.2 H (-2.0-2.0) mmol/ L Adrian Test N/a A-a O2 Gradient 6.4 (5-10) mmHg Hematocrit 37.2 (37-47) % Hgb O2 Saturation 94.7 L (95-100) % Carboxyhemoglobin 1.2 (0.4-20.1) %THgb Methemoglobin 0.5 (0.4-1.5) % Total Hemoglobin 12.1 (12-16) g/dL Sodium 134.0 (131-143) mmol/L Potassium 4.0 (3.5-5.0) mmol/L Glucose 111.0 (70-115) mg/dL Ionized Calcium 1.2 (1.1-1.4) mmol/L O2 Delivery Device Bipap O2 Liters/Min % FiO2 30.0 % Tidal Volume PEEP cmH20 CPAP cmH20 [employer] Start Teacher ID Amh Chloride (98-107) mmol/L Carbon Dioxide (22-29) mmol/L Anion Gap (5-19) BUN (6-20) mg/dL Creatinine (0.5-0.9) mg/dL GFR Calculation (90-130) mL/min Calculated Osmolal ity (285-295) mOsm/k g Lactic Acid (0.5-2.2) mmol/L Calcium (8.5-10.5) mg/dL Magnesium (1.7-2.3) mg/dL Total Bilirubin (0.15-1.2) mg/dL AST (0-32) U/L ALT (0-33) U/L Alkaline Phosphata se (35-105) IU/L Ammonia (11-51) umol/L Creatine Kinase (26-192) U/L Troponin T Baselin e 42 H (0-10) ng/L Troponin T 120 Min [place] 34.26 H (0-10) ng/L Delta Troponin T -7.74 L (0-10) ABS# Total Protein (6.6-8.7) g/dL Albumin (3.5-5.2) g/dL Globulin (1.3-4.6) g/dL Lipase (13-60) U/L Urine Color (Yellow) Urine Appearance (CLEAR) Urine pH (5-7) Ur Specific Gravit y (1.005-1.030) Urine Protein (Negative) Urine Glucose (UA) (Normal) Urine Ketones (Negative) Urine Blood (Negative) Urine Nitrate (Negative) Urine Bilirubin (Negative) Urine Urobilinogen (Negative) mg/dL Ur Leukocyte [place] ase (Negative) Urine RBC (0-2) /hpf Urine WBC (0-5) /hpf Ur Squamous Epith Cells (0-5) /hpf Amorphous Sediment Urine Bacteria (NONE) /hpf Urine Yeast /hpf Discharge Plan Discharge Patient Disposition: Home Clinical Impression: COPD (chronic obstructive pulmonary disease), Chronic hypercapnic respiratory failure Condition: Stable Prescriptions: New Lasix 20 mg tablet 20 mg PO DAILY Qty: 7 RF: 0 No Action sulfamethoxazole-trimethoprim [Bactrim] 400-80 mg tablet See Rx Instructions .ROUTE .COMPLEX RF: 0 montelukast [Singulair] 10 mg tablet 10 mg PO DAILY RF: 0 albuterol sulfate [ProAir HFA] 90 mcg/actuation HFA aerosol inhaler 2 puff INHALATION Q4H PRN (Reason: Shortness Of Breath) RF: 0 Biktarvy 50-200-25 mg tablet 1 tab PO DAILY@0300 RF: 0 atorvastatin 40 mg Tablet 40 mg PO BEDTIME 30 Days Qty: 30 RF: 0 aspirin 81 mg Tablet,Delayed Release (Dr/Ec) 81 mg PO DAILY 30 Days Qty: 30 RF: 0 carvedilol 3.125 mg Tablet 3.125 mg PO BID 30 Days Qty: 60 RF: 0 pantoprazole 40 mg Tablet,Delayed Release (Dr/Ec) 40 mg PO DAILY 30 Days Qty: 30 RF: 0 Spiriva with HandiHaler 18 mcg Capsule, W/Inhalation Device 1 cap INHALATION DAILY RF: 0 budesonide-formoterol [Symbicort] 160-4.5 mcg/actuation Hfa Aerosol Inhaler 2 puff INHALATION BID RF: 0 prednisone 10 mg tablet See Rx Instructions .ROUTE .COMPLEX Qty: 20 RF: 0 levofloxacin 750 mg tablet 750 mg PO DAILY Qty: 5 RF: 0 ipratropium-albuterol 0.5 mg-3 mg(2.5 mg base)/3 mL Solution For Nebulization 3 ml INHALATION QID PRN (Reason: Shortness Of Breath) Qty: 180 RF: 0 Discharge Orders: Discharge ED (Routine); Ordered 05/23/20 Ordered By: Sid Hui Discharge Diet: Usual diet Discharge Activity: Resume usual activity Patient Instructions: Opioid Safety Activity Restrictions/Additional Instructions: Follow-up with your primary care physician or 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 Return if you have further problems. Coding Level of Care Code ED Seating Upholsterer for Chg Fwd Exam Detailed
[2020-05-23] MEDS: ipratropium-albuterol 3 mL Neb 6 ML INHALATION (07:41)
--- NOTE | 2020-05-23 08:26 | PC.NURSE ---
patient is on Bipap, denied any chest pain, no acute distress noted. was unable to insert iv, awared.
[2020-05-23 08:41] LABS: Add Urine Microscopic? YES; Bilirubin Urine Neg (Negative); Blood Urine Neg (Negative); Glucose Urine UA Norm (Normal); Ketones Urine Negative (Negative); Leukocyte Esterase Urine Negative (Negative); Nitrate Urine Negative (Negative); Protein Urine Neg (Negative); Specific Gravity, Urine 1.015 (1.005-1.030); Urine Appearance Cloudy (CLEAR); Urine Color Yellow (Yellow); Urobilinogen Urine Norm (Negative); pH Urine 6 (5-7)
[2020-05-23 08:44] LABS: Bacteria Urine 1+ /hpf; RBC Urine 0-4 /hpf (0-2); Squamous Epithelial Cell Urine TOO NUMEROUS TO CNT /hpf (0-5); WBC Urine 0-4 /hpf (0-5)
[2020-05-23 08:45] LABS: Add Urine Culture? No
--- NOTE | 2020-05-23 08:53 | ECG_ITS ---
[facility] Test Date: 2020-05-23 Pat Name: Adore Broussard Department: Room: Gender: Female Software Development Leader: : 1960 Requested By: Sdi Gunderson Order Number: [id number] Cherelle MD: Marianna Guadalupe M.D. Measurements Intervals [place] Rate: 118 P: 90 [place]: 137 QRS: 84 QRSD: 80 T: 89 QT: 340 QTc: 478 Interpretive Statements SINUS TACHYCARDIA RIGHT ATRIAL ENLARGEMENT [0.3mV P WAVE] Compared to ECG 05/23/2020 07:18:04 Atrial abnormality now present Electronically Signed On 05-24-2020 11:32:35 SAMMYING MACHINE OPERATOR by Marianna Guadalupe M.D. [email or web address]
[2020-05-23 08:55] LABS: Basophils % 0.3 %; Eosinophils # 0.2 10^3/uL (0.0-0.8); Eosinophils % 2.5 %; Hematocrit 46.2 % (37.0-47.0); Lymphocytes # 0.8 10^3/uL (0.8-4.8); Lymphocytes % 11.6 %; Mean Corpuscular HGB Conc 30.3 g/dL (30.0-36.0); Mean Corpuscular Hemoglobin 28.6 pg (28.0-34.0); Mean Corpuscular Volume 94.5 fL (81-99); Monocytes # 0.6 10^3/uL (0.2-0.9); Neutrophils # 5.35 10^3/uL (1.8-7.7); Neutrophils % 77.3 %; Nucleated Red Blood Cells % 0 %; Platelet Count 159 10^3/cmm (130-400); Red Blood Count 4.89 10^6/uL (4.1-5.3); Red Cell Distribution Width 12.6 % (12.1-15.1); White Blood Count 6.9 10^3/uL (4.0-10.0)
[2020-05-23 09:12] LABS: Ammonia 19 umol/L (11-51)
[2020-05-23 09:13] LABS: Lactic Sepsis W/Reflex 0.9 mmol/L (0.5-2.2)
[2020-05-23 09:16] LABS: Alanine Aminotransferase 35 U/L (0-33); Albumin Level 4.4 g/dL (3.5-5.2); Alkaline Phosphatase 63 IU/L (35-105); Anion Gap 7.2 (5-19); Aspartate Amino Transferase 26 U/L (0-32); Blood Urea Nitrogen 6 mg/dL (6-20); Calcium 9.3 mg/dL (8.5-10.5); Chloride 86 mmol/L (98-107); Creatine Phosphokinase 47 U/L (26-192); Globulin 2.9 g/dL (1.3-4.6); Glomerular Filtration Rate 102.7 mL/min (90-130); Glucose 83 mg/dL (65-115); Lipase 40 U/L (13-60); Osmolality Calculated 275 mOsm/kg (285-295); Potassium 4.2 mmol/L (3.5-5.1); Sodium 134 mmol/L (136-145); Total Bilirubin 0.9 mg/dL (0.15-1.2); Total Protein 7.3 g/dL (6.6-8.7)
[2020-05-23 09:17] LABS: Troponin(5th) Baseline 42 ng/L (0-10)
[2020-05-23 09:21] LABS: Carbon Dioxide 45 mmol/L (22-29)
--- NOTE | 2020-05-23 09:22 | PC.NURSE ---
Provider notified of critical CO2 Level. No new orders at this time.
[2020-05-23 10:33] LABS: ABG PCO2 76.2 mmHg (35-45); Alveolar-Arterial Oxygen Gradi 6.4 mmHg (5-10); Arterial Blood Gas Hematocrit 37.2 % (37-47); Base Excess ABG 18.2 mmol/L (-2.0-2.0); Blood Gas Operator Identificat AMH; Blood Gas Sample Site Brachial, left; Blood Gas Sample Type Arterial; Carboxyhemoglobin 1.2 %THgb (0.4-20.1); HCO3 ABG 46.8 mmol/L (22-26); HGB O2 Sat 94.7 % (95-100); Ionized Calcium Level - ABG 1.2 mmol/L (1.1-1.4); Methemoglobin 0.5 % (0.4-1.5); Oxygen Device BIPAP; Oxygen Saturation ABG 96.3; PO2 ABG 73.6 mmHg (80.0-100.0); Total Hemoglobin 12.1 g/dL (12-16)
[2020-05-23 11:21] LABS: Troponin 5 2HR 34.26 ng/L (0-10)
[2020-05-23 11:24] LABS: Troponin 5 2HR Delta -7.74 ABS# (0-10)
--- NOTE | 2020-05-23 11:27 | PC.PHAR ---
PT STATES SHE TAKES CARE OF HER OWN MEDICATIONS-PT STATES SHE HASNT TAKEN ANY MEDICATIONS FOR 4 DAYS-PT STATES SHE DOESNT KNOW ALL THE NAMES OF HER MEDICATIONS-PT STATES SHE BROUGHT HER BIKTARVY WITH HER INCASE SHE WAS ADMITTED-PT STATES SHE FINISHED HER LEVOFLOXACIN AND PREDNISONE-[facility] STATES THE PREDNISONE HASNT BEEN PICKED UP-MEDICATIONS ENTERED ARE FROM PREVIOUS ENTERED MED LIST AND FROM EXTERNAL MED HISTORY AND PT-PT STATES SHE DOESNT USE THE YUPELRI FILLED ON 04/28/20 AND BUDESONIDE FILLED ON 04/28/20-PT STATES SHE THREW AWAY THE XANAX FILLED ON 05/06/20 7D/S DIRECTIONS 0.25MG TAKE 1/2 TAB BID FOR ANXIETY DURING BIPAP USE ONLY
[2020-05-23] MEDS: FUROsemide 10 mg/mL SDV 2mL 20 MG IVP (11:57)
--- NOTE | 2020-05-23 11:57 | PC.RESP ---
RT tried to instruct pt on the use of her home trilogy machine, which pt brought into the er with her. Pt refused to have instruction on trilogy, pt stated that she knows how to use that machine
[2020-05-23] MEDS: aspirin 325 mg Tablet PO (12:06)
--- NOTE | 2020-05-23 12:08 | PC.NURSE ---
patient c/o sonu acevedo MD awared, no acute distress noted at this time.
--- NOTE | 2020-05-23 13:25 | PC.NURSE ---
patient resting. no acute distress noted. waiting for the ride
== END 2020-05-23 16:22 | disposition home or self-care (01) ==
PROVIDERS: Emergency Provider Family Medicine
DX: J44.9 Chronic obstructive pulmonary disease, unspecified (principal); J96.12 Chronic respiratory failure with hypercapnia; Z79.82 Long term (current) use of aspirin; B20 Human immunodeficiency virus [HIV] disease; F17.210 Nicotine dependence, cigarettes, uncomplicated
CPT/HCPCS: 36415; 36600; 71045; 80051; 80053; 81001; 82140; 82330; 82550; 82805; 83605; 83690; 83735; 84484; 85025; 87040; 93005; 94640; 94660; 96374; 99285; J1940

== ENCOUNTER 2020-06-06 11:49 | Inpatient (IN) | payer MEDICAID, SELFPAY ==
[2020-06-06] VITALS (38 sets, daily range): BP systolic 72–176; BP diastolic 58–86; PULSE 37–140; RESP 12–41; TEMP 36.5–36.6; O2SAT 81–100; BMI 15.5
--- NOTE | 2020-06-06 11:59 | XR_ITS ---
WS: [id number] Portable AP upright chest, 06/06/2020 Clinical Data: dyspnea Comparison: Portable chest, 05/23/2020. Findings: No nodules, masses or effusions are seen. The heart is normal. The pulmonary vascularity is not increased. No pneumonia or pneumothorax is seen. The diaphragms are flattened. There is an old l eft lateral ninth rib fracture. Monitor leads are on the chest wall. XR/XR chest 1V portable 23023 Impression: Hyperinflation.
--- NOTE | 2020-06-06 12:13 | W.ED.SOB ---
HPI - SOB/Dyspnea General: Chief Complaint: Shortness of Breath/Dyspnea Stated Complaint: CHF EXACERBATION/ COPD Time Seen by Provider: 06/06/20 11:59 History of Present Illness: HPI Narrative: 59-year-old female presents emergency room via EMS complaining of shortness of breath production of clear sputum over the last few days denies chest pain no fever sweats chills nausea vomiting or diarrhea. She has noticed some swelling in her legs. She is having pursed lip breathing and tachypneic on arrival. MD elicited complaint: shortness of breath and cough Pertinent past history: COPD and congestive heart failure Onset (ago): day(s) Timing: constant Severity: moderate Exacerbating factors: exertion and coughing Relieving factors: oxygen and rest Known history of: COPD Associated symptoms: Reports cough; Deny abdominal pain, chest congestion, chest pain, diaphoresis, dizziness, extremity pain, fever(s), hemoptysis, lightheadedness, myalgias, nausea, orthopnea, palpitations, paresthesias, polydipsia, polyuria, rash, sense of impending doom or syncope Treatment prior to arrival: oxygen and bronchodilator Review of Systems Const: Denies: fever(s) or diaphoresis Eyes: Denies: change in vision or blurry vision ENMT: Denies: throat pain, ear or mastoid pain, nasal discharge or nasal congestion Card: Denies: chest pain, lightheadedness, syncope or orthopnea Resp: Reports: dyspnea, non-productive cough and wheezing; Denies: hemoptysis or chest congestion GI: Denies: abdominal pain or nausea : Denies: flank pain, difficulty voiding, dysuria, urinary frequency or urinary urgency Musc: Denies: extremity pain Skin/Breast: Denies: rash or pruritus Neuro: Denies: dizziness Psych: Denies: anxiety, depression, loss of interest, visual hallucinations, auditory hallucinations, suicidal ideation or homicidal ideation Endo: Denies: polyuria or polydipsia Yazan/Lymph: Denies: easy bruising, easy bleeding, petechiae, enlarged lymph nodes or tender lymph nodes PFSH ED PFSH: Medical History Acute hypercapnic respiratory failure CHF (congestive heart failure) Chronic respiratory failure with hypoxia and hypercapnia COPD (chronic obstructive pulmonary disease) GERD (gastroesophageal reflux disease) HIV (human immunodeficiency virus infection) HIV (human immunodeficiency virus infection) Nicotine addiction Protein calorie malnutrition Respiratory failure with hypoxia and hypercapnia Surgical History H/O laparoscopy Family History Mother COPD (chronic obstructive pulmonary disease) Father CAD (coronary artery disease) Social History Smoking and tobacco status: current every day smoker cigarettes Years cigarettes smoked: 50 [ Other cigarette details: Hx of 1 PPD x 15 Years ] Second hand smoke exposure: Yes Smoking risk assessment/counseling performed?: Yes Alcohol intake: current Alcohol intake frequency: holidays/special occasions only Counseling given: No Counseling given: Yes Lives independently: Yes Household members: none Marital status: / Current occupational status: disabled History of recent travel: No Current gender identity: Female Physical Exam Const: COMMON NORMALS: no acute distress GENERAL APPEARANCE: cooperative and comfortable ORIENTATION/CONSCIOUSNESS: Yes awake, Yes oriented to person, Yes oriented to place and Yes oriented to time HENMT: COMMON NORMALS: normocephalic, atraumatic and hearing grossly normal bilaterally HEAD & SCALP: normocephalic and atraumatic Resp: EFFORT & INSPECTION: Yes tachypneic, Yes pursed lip breathing and Yes labored AUSCULTATION: wheezes GI: COMMON NORMALS: Soft to palpation and No hepatosplenomegaly present AUSCULTATION: Yes normoactive bowel sounds PALPATION: Yes Soft to palpation, No Tenderness to palpation present (GI), No Guarding due to palpation present (GI) and Yes No hepatosplenomegaly present Extremity: COMMON NORMALS: normal to inspection, capillary refill normal, no clubbing, cyanosis or edema, no calf tenderness and no pedal edema Neuro: SENSORIUM/ORIENTATION: Yes oriented to person, Yes oriented to place and Yes oriented to time Skin: COMMON NORMALS: no rashes or lesions noted GENERAL SKIN EXAM: no rashes or lesions noted Course Vital Signs: Vital signs: Vital Signs Temperature 97.8 F 06/06/20 15:31 Pulse Rate 121 H 06/06/20 16:05 Respiratory Rate 39 H 06/06/20 14:15 Blood Pressure 136/86 06/06/20 15:31 Pulse Oximetry 99 06/06/20 16:05 MDM - SOB/Dyspnea MDM Narrative: Medical decision making narrative: Patient started on BiPAP did not have significant improvement however in order to get her to keep it on we had to give her some Ativan her FiO2 was a little bit on the low side adjustments were made we will admit her to the ICU discussed Dr. Orlando shields written Lab Data: Labs: Lab Results 06/06/20 06/06/20 06/06/20 Range/Units 11:57 11:57 11:57 WBC 7.8 (4.0-10.0) 10^3/ uL RBC 5.60 H (4.1-5.3) 10^6/u L Hgb 16.3 H (11.5-15.3) g/dL Hct 52.8 H (37.0-47.0) % MCV 94.3 (81-99) fL MCH 29.1 (28.0-34.0) pg MCHC 30.9 (30.0-36.0) g/dL RDW 12.5 (12.1-15.1) % Plt Count 319 (130-400) 10^3/c mm MPV 10.2 (7.4-10.4) fL Neut % (Auto) 69.3 % Lymph % (Auto) 19.7 % [place] % (Auto) 8.5 % Eos % (Auto) 1.8 % Baso % (Auto) 0.3 % Neut # (Auto) 5.41 (1.8-7.7) 10^3/u L Lymph # (Auto) 1.5 (0.8-4.8) 10^3/u L [place] # (Auto) 0.7 (0.2-0.9) 10^3/u L Eos # (Auto) 0.1 (0.0-0.8) 10^3/u L Baso # (Auto) 0.0 (0.0-0.1) 10^3/u L Nucleated RBC % (a uto) 0 % Nucleated RBCs # 0.0 /100WBC PT 12.00 L (12.1-14.9) SECO NDS INR 0.86 (0.8-1.2) D-Dimer <= 0.27 (0-0.59) ug/mIFE U Specimen Type Sample Site ABG pH (7.35-7.45) ABG pCO2 (35-45) mmHg ABG pO2 (80.0-100.0) mmH g ABG HCO3 (22-26) mmol/L ABG O2 Saturation ABG Base Excess (-2.0-2.0) mmol/ L Adrian Test A-a O2 Gradient (5-10) mmHg Hematocrit (37-47) % Hgb O2 Saturation (95-100) % Carboxyhemoglobin (0.4-20.1) %THgb Methemoglobin (0.4-1.5) % Total Hemoglobin (12-16) g/dL Ionized Calcium (1.1-1.4) mmol/L O2 Delivery Device FiO2 % Sale Professional [employer] ID Sodium Cancelled Potassium Cancelled Chloride Cancelled Carbon Dioxide Cancelled Anion Gap Cancelled BUN Cancelled Creatinine Cancelled GFR Calculation Cancelled Glucose Cancelled Calculated Osmolal ity Cancelled Lactate (0.5-2.2) mmol/L Calcium Cancelled Total Bilirubin Cancelled AST Cancelled ALT Cancelled Alkaline Phosphata se Cancelled Creatine Kinase Cancelled Troponin T Baselin e NT-Pro-B Natriuret Pep Cancelled Total Protein Cancelled Albumin Cancelled Globulin Cancelled Urine Color (Yellow) Urine Appearance (CLEAR) Urine pH (5-7) Ur Specific Gravit y (1.005-1.030) Urine Protein (Negative) Urine Glucose (UA) (Normal) Urine Ketones (Negative) Urine Blood (Negative) Urine Nitrate (Negative) Urine Bilirubin (Negative) Urine Urobilinogen (Negative) mg/dL Ur Leukocyte [place] ase (Negative) Urine RBC (0-2) /hpf Urine WBC (0-5) /hpf Ur Squamous Epith Cells (0-5) /hpf Calcium Oxalate Cr ystal /hpf Amorphous Sediment Urine Bacteria (NONE) /hpf SARS-CoV-2 Ag (Rap id) (Negative) 06/06/20 06/06/20 06/06/20 Range/Units 11:57 12:09 12:23 WBC (4.0-10.0) 10^3/ uL RBC (4.1-5.3) 10^6/u L Hgb (11.5-15.3) g/dL Hct (37.0-47.0) % MCV (81-99) fL MCH (28.0-34.0) pg MCHC (30.0-36.0) g/dL RDW (12.1-15.1) % Plt Count (130-400) 10^3/c mm MPV (7.4-10.4) fL Neut % (Auto) % Lymph % (Auto) % [place] % (Auto) % Eos % (Auto) % Baso % (Auto) % Neut # (Auto) (1.8-7.7) 10^3/u L Lymph # (Auto) (0.8-4.8) 10^3/u L [place] # (Auto) (0.2-0.9) 10^3/u L Eos # (Auto) (0.0-0.8) 10^3/u L Baso # (Auto) (0.0-0.1) 10^3/u L Nucleated RBC % (a uto) % Nucleated RBCs # /100WBC PT (12.1-14.9) SECO NDS INR (0.8-1.2) D-Dimer (0-0.59) ug/mIFE U Specimen Type Arterial Sample Site Brachial, left ABG pH 7.34 L (7.35-7.45) ABG pCO2 95.7 H* (35-45) mmHg ABG pO2 76.0 L (80.0-100.0) mmH g ABG HCO3 51.8 H (22-26) mmol/L ABG O2 Saturation 96.0 ABG Base Excess 20.5 H (-2.0-2.0) mmol/ L Adrian Test Pos A-a O2 Gradient 1.6 L (5-10) mmHg Hematocrit 41.8 (37-47) % Hgb O2 Saturation 92.7 L (95-100) % Carboxyhemoglobin 2.7 (0.4-20.1) %THgb Methemoglobin 0.7 (0.4-1.5) % Total Hemoglobin 13.7 (12-16) g/dL Ionized Calcium 1.2 (1.1-1.4) mmol/L O2 Delivery Device Nc FiO2 28.0 % Sale Professional [employer] ID Cak Sodium 138.0 Potassium 3.9 Chloride Carbon Dioxide Anion Gap BUN Creatinine GFR Calculation Glucose 158.0 H Calculated Osmolal ity Lactate (0.5-2.2) mmol/L Calcium Total Bilirubin AST ALT Alkaline Phosphata se Creatine Kinase Troponin T Baselin e Cancelled NT-Pro-B Natriuret Pep Total Protein Albumin Globulin Urine Color Yellow (Yellow) Urine Appearance Hazy A (CLEAR) Urine pH 5 (5-7) Ur Specific Gravit y 1.025 (1.005-1.030) Urine Protein Neg (Negative) Urine Glucose (UA) Norm (Normal) Urine Ketones Negative (Negative) Urine Blood Neg (Negative) Urine Nitrate Negative (Negative) Urine Bilirubin 1+ H (Negative) Urine Urobilinogen 1 H (Negative) mg/dL Ur Leukocyte [place] ase Negative (Negative) Urine RBC None (0-2) /hpf Urine WBC None (0-5) /hpf Ur Squamous Epith Cells 5-10 H (0-5) /hpf Calcium Oxalate Cr ystal 0-4 H /hpf Amorphous Sediment Not Reportable Urine Bacteria Trace (NONE) /hpf SARS-CoV-2 Ag (Rap id) (Negative) 06/06/20 06/06/20 06/06/20 Range/Units 12:33 12:45 12:45 WBC (4.0-10.0) 10^3/ uL RBC (4.1-5.3) 10^6/u L Hgb (11.5-15.3) g/dL Hct (37.0-47.0) % MCV (81-99) fL MCH (28.0-34.0) pg MCHC (30.0-36.0) g/dL RDW (12.1-15.1) % Plt Count (130-400) 10^3/c mm MPV (7.4-10.4) fL Neut % (Auto) % Lymph % (Auto) % [place] % (Auto) % Eos % (Auto) % Baso % (Auto) % Neut # (Auto) (1.8-7.7) 10^3/u L Lymph # (Auto) (0.8-4.8) 10^3/u L [place] # (Auto) (0.2-0.9) 10^3/u L Eos # (Auto) (0.0-0.8) 10^3/u L Baso # (Auto) (0.0-0.1) 10^3/u L Nucleated RBC % (a uto) % Nucleated RBCs # /100WBC PT (12.1-14.9) SECO NDS INR (0.8-1.2) D-Dimer (0-0.59) ug/mIFE U Specimen Type Sample Site ABG pH (7.35-7.45) ABG pCO2 (35-45) mmHg ABG pO2 (80.0-100.0) mmH g ABG HCO3 (22-26) mmol/L ABG O2 Saturation ABG Base Excess (-2.0-2.0) mmol/ L Adrian Test A-a O2 Gradient (5-10) mmHg Hematocrit (37-47) % Hgb O2 Saturation (95-100) % Carboxyhemoglobin (0.4-20.1) %THgb Methemoglobin (0.4-1.5) % Total Hemoglobin (12-16) g/dL Ionized Calcium (1.1-1.4) mmol/L O2 Delivery Device FiO2 % Sale [employer] ID Sodium 138 Potassium 4.2 Chloride 89 L Carbon Dioxide 41 H Anion Gap 12.2 BUN 15 Creatinine 0.7 GFR Calculation 85.9 L Glucose 153 H Calculated Osmolal ity 290 Lactate 0.7 (0.5-2.2) mmol/L Calcium 8.4 L Total Bilirubin 0.6 AST 20 ALT 18 Alkaline Phosphata se 53 Creatine Kinase 41 Troponin T Baselin e NT-Pro-B Natriuret Pep 718 H Total Protein 5.5 L Albumin 3.6 Globulin 1.9 Urine Color (Yellow) Urine Appearance (CLEAR) Urine pH (5-7) Ur Specific Gravit y (1.005-1.030) Urine Protein (Negative) Urine Glucose (UA) (Normal) Urine Ketones (Negative) Urine Blood (Negative) Urine Nitrate (Negative) Urine Bilirubin (Negative) Urine Urobilinogen (Negative) mg/dL Ur Leukocyte [place] ase (Negative) Urine RBC (0-2) /hpf Urine WBC (0-5) /hpf Ur Squamous Epith Cells (0-5) /hpf Calcium Oxalate Cr ystal /hpf Amorphous Sediment Urine Bacteria (NONE) /hpf SARS-CoV-2 Ag (Rap id) Negative (Negative) 06/06/20 Range/Units 12:45 WBC (4.0-10.0) 10^3/ uL RBC (4.1-5.3) 10^6/u L Hgb (11.5-15.3) g/dL Hct (37.0-47.0) % MCV (81-99) fL MCH (28.0-34.0) pg MCHC (30.0-36.0) g/dL RDW (12.1-15.1) % Plt Count (130-400) 10^3/c mm MPV (7.4-10.4) fL Neut % (Auto) % Lymph % (Auto) % [place] % (Auto) % Eos % (Auto) % Baso % (Auto) % Neut # (Auto) (1.8-7.7) 10^3/u L Lymph # (Auto) (0.8-4.8) 10^3/u L [place] # (Auto) (0.2-0.9) 10^3/u L Eos # (Auto) (0.0-0.8) 10^3/u L Baso # (Auto) (0.0-0.1) 10^3/u L Nucleated RBC % (a uto) % Nucleated RBCs # /100WBC PT (12.1-14.9) SECO NDS INR (0.8-1.2) D-Dimer (0-0.59) ug/mIFE U Specimen Type Sample Site ABG pH (7.35-7.45) ABG pCO2 (35-45) mmHg ABG pO2 (80.0-100.0) mmH g ABG HCO3 (22-26) mmol/L ABG O2 Saturation ABG Base Excess (-2.0-2.0) mmol/ L Adrian Test A-a O2 Gradient (5-10) mmHg Hematocrit (37-47) % Hgb O2 Saturation (95-100) % Carboxyhemoglobin (0.4-20.1) %THgb Methemoglobin (0.4-1.5) % Total Hemoglobin (12-16) g/dL Ionized Calcium (1.1-1.4) mmol/L O2 Delivery Device FiO2 % Sale Professional [employer] ID Sodium Potassium Chloride Carbon Dioxide Anion Gap BUN Creatinine GFR Calculation Glucose Calculated Osmolal ity Lactate (0.5-2.2) mmol/L Calcium Total Bilirubin AST ALT Alkaline Phosphata se Creatine Kinase Troponin T Baselin e 37 H NT-Pro-B Natriuret Pep Total Protein Albumin Globulin Urine Color (Yellow) Urine Appearance (CLEAR) Urine pH (5-7) Ur Specific Gravit y (1.005-1.030) Urine Protein (Negative) Urine Glucose (UA) (Normal) Urine Ketones (Negative) Urine Blood (Negative) Urine Nitrate (Negative) Urine Bilirubin (Negative) Urine Urobilinogen (Negative) mg/dL Ur Leukocyte [place] ase (Negative) Urine RBC (0-2) /hpf Urine WBC (0-5) /hpf Ur Squamous Epith Cells (0-5) /hpf Calcium Oxalate Cr ystal /hpf Amorphous Sediment Urine Bacteria (NONE) /hpf SARS-CoV-2 Ag (Rap id) (Negative) Discharge Plan Discharge Patient Disposition: Admitted As Inpatient Admit Provider: Faiza Perry Clinical Impression: Acute exacerbation of chronic obstructive airways disease, Acute hypercapnic respiratory failure Congestive heart failure Qualifiers: Heart failure type: unspecified Heart failure chronicity: acute on chronic Qualified Code(s): I50.9 - Heart failure, unspecified Condition: Stable Coding Level of Care Code ED Wire Fence Builder for g Fwd Exam Detailed
[2020-06-06 12:18] LABS: Basophils % 0.3 %; Eosinophils # 0.1 10^3/uL (0.0-0.8); Eosinophils % 1.8 %; Hematocrit 52.8 % (37.0-47.0); Hemoglobin 16.3 g/dL (11.5-15.3); Lymphocytes # 1.5 10^3/uL (0.8-4.8); Lymphocytes % 19.7 %; Mean Corpuscular HGB Conc 30.9 g/dL (30.0-36.0); Mean Corpuscular Hemoglobin 29.1 pg (28.0-34.0); Mean Corpuscular Volume 94.3 fL (81-99); Mean Platelet Volume 10.2 fL (7.4-10.4); Monocytes # 0.7 10^3/uL (0.2-0.9); Monocytes % 8.5 %; Neutrophils # 5.41 10^3/uL (1.8-7.7); Neutrophils % 69.3 %; Nucleated Red Blood Cells % 0 %; Platelet Count 319 10^3/cmm (130-400); Red Cell Distribution Width 12.5 % (12.1-15.1); White Blood Count 7.8 10^3/uL (4.0-10.0)
[2020-06-06 12:20] LABS: ABG PH Result 7.34 (7.35-7.45); Alveolar-Arterial Oxygen Gradi 1.6 mmHg (5-10); Arterial Blood Gas Hematocrit 41.8 % (37-47); Base Excess ABG 20.5 mmol/L (-2.0-2.0); Blood Gas Allen Test Pos; Blood Gas Operator Identificat CAK; Blood Gas Sample Site Brachial, left; Blood Gas Sample Type Arterial; Carboxyhemoglobin 2.7 %THgb (0.4-20.1); HCO3 ABG 51.8 mmol/L (22-26); HGB O2 Sat 92.7 % (95-100); Ionized Calcium Level - ABG 1.2 mmol/L (1.1-1.4); Methemoglobin 0.7 % (0.4-1.5); Oxygen Device NC; Potassium Level - ABG 3.9 mmol/L (3.5-5.0); Total Hemoglobin 13.7 g/dL (12-16)
[2020-06-06 12:21] LABS: ABG PCO2 95.7 mmHg (35-45)
[2020-06-06 12:31] LABS: INR 0.86 (0.8-1.2)
[2020-06-06 12:33] LABS: D Dimer <= 0.27 ug/mIFEU (0-0.59)
[2020-06-06] MEDS: LORazepam 2 mg/mL INJ 1 mL 1 MG IVP (12:45)
[2020-06-06 13:13] LABS: Glucose Urine UA Norm (Normal); Ketones Urine Negative (Negative); Protein Urine Neg (Negative); Specific Gravity, Urine 1.025 (1.005-1.030); Urine Color Yellow (Yellow); pH Urine 5 (5-7)
[2020-06-06 13:15] LABS: Bilirubin Urine 1+ (Negative); Blood Urine Neg (Negative); Leukocyte Esterase Urine Negative (Negative); Nitrate Urine Negative (Negative); Urobilinogen Urine 1 mg/dL (Negative)
[2020-06-06 13:16] LABS: Add Urine Culture? No; Add Urine Microscopic? YES; Bacteria Urine TRACE /hpf; Calcium Oxalate Crystals Urine 0-4 /hpf; Urine Appearance Hazy (CLEAR)
[2020-06-06 13:22] LABS: Troponin(5th) Baseline 37 ng/L (0-10)
[2020-06-06 13:24] LABS: Lactate (Lactic Acid level) 0.7 mmol/L (0.5-2.2)
[2020-06-06 13:29] LABS: NT Pro B Type Natriuretic Pept 718 pg/mL (0-125)
[2020-06-06 13:30] LABS: SARS Covid-2 Antigen Negative (Negative)
[2020-06-06 13:58] LABS: Alanine Aminotransferase 18 U/L (0-33); Albumin Level 3.6 g/dL (3.5-5.2); Alkaline Phosphatase 53 IU/L (35-105); Anion Gap 12.2 (5-19); Aspartate Amino Transferase 20 U/L (0-32); Blood Urea Nitrogen 15 mg/dL (6-20); Chloride 89 mmol/L (98-107); Creatine Phosphokinase 41 U/L (26-192); Globulin 1.9 g/dL (1.3-4.6); Glomerular Filtration Rate 85.9 mL/min (90-130); Glucose 153 mg/dL (65-115); Osmolality Calculated 290 mOsm/kg (285-295); Potassium 4.2 mmol/L (3.5-5.1); Sodium 138 mmol/L (136-145); Total Bilirubin 0.6 mg/dL (0.15-1.2); Total Protein 5.5 g/dL (6.6-8.7)
[2020-06-06 14:02] LABS: Calcium 8.4 mg/dL (8.5-10.5); Carbon Dioxide 41 mmol/L (22-29)
--- NOTE | 2020-06-06 14:02 | ECG_ITS ---
[facility] Test Date: 2020-06-06 Pat Name: Adore Broussard Department: Room: Gender: Female Machine Assistant: : 1960 Requested By: Ronnell Terry Order Number: [id number] Reading MD: ZIGGY KANG Measurements Intervals [place] Rate: 121 P: 85 [place]: 108 QRS: 89 QRSD: 81 T: 56 QT: 379 QTc: 540 Interpretive Statements SINUS TACHYCARDIA WITH SHORT WA INTERVAL WITH OCCASIONAL VENTRICULAR PREMATURE COMPLEXES, artifact Compared to ECG 05/23/2020 09:00:16 No significant change Electronically Signed On 06-06-2020 19:27:21 AWNING FRAME MAKER by ZIGGY KANG [email or web address] [email or web address] general hospitalMondeCafesohio state harding hospitalRunteq/store/Om/[id number]
[2020-06-06] MEDS: FUROsemide 10 mg/mL SDV 4mL 40 MG IVP ×2 (14:13→21:55)
--- NOTE | 2020-06-06 15:21 | P.HP_ITS ---
Providers/Chief Complaint Admitting Physician: Faiza Perry MD Chief Complaint: CHF EXACERBATION/ COPD History of Present Illness Adore Broussard is a 59 year old female with a past medical history of chronic hypercapnic respiratory failure secondary to COPD, on BiPAP at home, 2 L oxygen dependent, smoker, history of HIV on Biktarvy, who presents to [facility] due to complaints of shortness of breath. She presented to the ER today with complaints of shortness of breath, ABG noted chronic hyper ABG was hr representative of acute on chronic hypercapnic respiratory failure, placed on BiPAP, given Solu-Medrol 125 mg p.o. daily, she also did receive Ativan for agitation. Noted to have increasing bilateral lower extremit y edema, so also received Lasix. Chest x-ray shows hyperinflation, no acute consolidation at this present time or infiltrates at this present time. D-dimer is negative At the time of my evaluation patient is somnolent, wakes up to calling name and answers yes or no to simple questions but does not give detailed history. Review of Systems General: Reports: ROS unobtainable due to mental status Medications/Allergies Home Medications Medication Instructions Recorded Confirmed Last Taken Type albuterol sulfate 90 mcg/actuation 2 puff INHALATION Q4H PRN 10/03/19 06/06/20 Unknown History aerosol inhaler montelukast 10 mg tablet 10 mg PO DAILY 10/03/19 06/06/20 04/22/20 History sulfamethoxazole 400 See Rx Instructions .ROUTE 10/03/19 06/06/20 04/21/20 History mg-trimethoprim 80 mg tablet .COMPLEX tab Biktarvy 1 tab PO DAILY@0300 04/23/20 06/06/20 04/23/20 History Spiriva with HandiHaler 1 cap INHALATION DAILY 05/05/20 06/06/20 Unknown History budesonide-formoterol [Symbicort] 2 puff INHALATION BID 05/05/20 06/06/20 Unknown History ipratropium-albuterol 3 ml INHALATION QID PRN #180 ml 05/16/20 06/06/20 Unknown Rx prednisone See Rx Instructions .ROUTE 05/16/20 06/06/20 Unknown Rx .COMPLEX #20 tab furosemide [Lasix] 20 mg PO DAILY #7 tab 05/23/20 06/06/20 Unknown Rx revefenacin [Yupelri] 175 mcg INHALATION DAILY 06/06/20 06/06/20 Unknown History Allergies Allergy/AdvReac Type Severity Reaction Status Date / Time Penicillins Allergy ALGY-Difficulty Verified 06/06/20 11:56 Breathing phenobarbital Allergy ALGY-Hives Verified 06/06/20 11:56 Tetanus Vaccines and Toxoid Allergy ALGY-Hives Verified 06/06/20 11:56 PFSH Acute PFSH: Medical History Acute hypercapnic respiratory failure CHF (congestive heart failure) Chronic respiratory failure with hypoxia and hypercapnia COPD (chronic obstructive pulmonary disease) GERD (gastroesophageal reflux disease) HIV (human immunodeficiency virus infection) HIV (human immunodeficiency virus infection) Nicotine addiction Protein calorie malnutrition Respiratory failure with hypoxia and hypercapnia Surgical History H/O laparoscopy Family History Mother COPD (chronic obstructive pulmonary disease) Father CAD (coronary artery disease) Social History Smoking and tobacco status: current every day smoker cigarettes Years cigarettes smoked: 50 [ Other cigarette details: Hx of 1 PPD x 15 Years ] Second hand smoke exposure: Yes Smoking risk assessment/counseling performed?: Yes Alcohol intake: current Alcohol intake frequency: holidays/special occasions only Counseling given: No Counseling given: Yes Lives independently: Yes Household members: none Marital status: / Current occupational status: disabled History of recent travel: No Current gender identity: Female Vitals/I&O/Wt Last Vital Signs Temp 97.8 F 06/06/20 12:13 Pulse 128 H 06/06/20 14:28 Resp 39 H 06/06/20 14:15 BP 111/81 06/06/20 14:15 Pulse Ox 93 06/06/20 14:28 Weight last 48 hrs Weight 37.195 kg Physical Exam Narrative: EXAM NARRATIVE: General: Currently on BiPAP, somnolent, says yes or no HEENT: PERRLA, pupils bilaterally equal and reactive, pallors not present Chest: Harsh vesicular breath sounds to auscultation bilaterally CVS: S1-S2 regular, no murmurs, no tachycardia, no gallops, no rubs Abdomen: Soft, nontender, no organomegaly, bowel sounds present Neuro: No focal deficits, power 5/5 in all limbs Extremities: 2+ pitting edema over bilateral lower extremities Data : 06/06/20 11:57 06/06/20 12:45 A&P Assessment and plan (1) Acute exacerbation of chronic obstructive airways disease: Status: Acute (2) Acute and chronic respiratory failure with hypercapnia: Status: Acute (3) Congestive heart failure: Status: Acute Qualifiers: Heart failure type: unspecified Heart failure chronicity: acute on chronic Qualified Code(s): I50.9 - Heart failure, unspecified Additional A&P Information Admit to the intensive care unit as patient is currently on BiPAP, extremely somnolent, high risk of proceeding to intubation and mechanical ventilation Continue BiPAP started in the ED for now. Repeat ABG Solu-Medrol 60 mg IV every 8 hour, scheduled DuoNeb every 4 hour, budesonide 0.5 mg p.o. twice daily, albuterol as needed. Covid negative antigen PPI-pantoprazole for stress ulcer prophylaxis and for GERD Hold Biktarvy while currently admitted as not on formulary, continue Bactrim 3 times a week, I assume this is for PJP prophylaxis, unknown last VL and CD4 count. 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 Fwd Diagnoses Acute exacerbation of chronic obstructive airways disease J44.1 Acute and chronic respiratory failure with hypercapnia J96.22 Congestive heart failure I50.9 Heart failure type: unspecified Heart failure chronicity: acute on chronic
[2020-06-06 15:33] LABS: ABG PH Result 7.33 (7.35-7.45); Alveolar-Arterial Oxygen Gradi 4.5 mmHg (5-10); Arterial Blood Gas Hematocrit 44.2 % (37-47); Base Excess ABG 20.3 mmol/L (-2.0-2.0); Blood Gas Allen Test Pos; Blood Gas Operator Identificat CAK; Blood Gas Sample Site Brachial, left; Blood Gas Sample Type Arterial; Carboxyhemoglobin 2.4 %THgb (0.4-20.1); HCO3 ABG 52.1 mmol/L (22-26); HGB O2 Sat 90.3 % (95-100); Ionized Calcium Level - ABG 1.2 mmol/L (1.1-1.4); Methemoglobin 0.7 % (0.4-1.5); Oxygen Device BIPAP; Oxygen Saturation ABG 93.2; PO2 ABG 65.2 mmHg (80.0-100.0); Potassium Level - ABG 4.1 mmol/L (3.5-5.0); Total Hemoglobin 14.4 g/dL (12-16)
[2020-06-06 15:34] LABS: ABG PCO2 98.2 mmHg (35-45)
[2020-06-06 16:11] LABS: Troponin 5 2HR 33.44 ng/L (0-10)
[2020-06-06] MEDS: ipratropium-albuterol 3 mL Neb INHALATION ×2 (16:13→20:17)
[2020-06-06 16:15] LABS: Troponin 5 2HR Delta -3.56 ABS# (0-10)
[2020-06-06 17:58] LABS: Alveolar-Arterial Oxygen Gradi 10.8 mmHg (5-10); Arterial Blood Gas Hematocrit 42.3 % (37-47); Base Excess ABG 22.1 mmol/L (-2.0-2.0); Blood Gas Allen Test Pos; Blood Gas Operator Identificat CAK; Blood Gas Sample Site Brachial, left; Blood Gas Sample Type Arterial; Carboxyhemoglobin 2.1 %THgb (0.4-20.1); HCO3 ABG 52.1 mmol/L (22-26); HGB O2 Sat 93.1 % (95-100); Ionized Calcium Level - ABG 1.2 mmol/L (1.1-1.4); Methemoglobin 0.6 % (0.4-1.5); Oxygen Device BIPAP; Oxygen Saturation ABG 95.7; PO2 ABG 70.7 mmHg (80.0-100.0); Potassium Level - ABG 4.1 mmol/L (3.5-5.0); Total Hemoglobin 13.8 g/dL (12-16)
[2020-06-06 17:59] LABS: ABG PCO2 83.3 mmHg (35-45)
--- NOTE | 2020-06-06 18:02 | ECG_ITS ---
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: : 1960 Requested By: Ronnell Terry Order Number: [id number] Reading MD: ZIGGY KANG Measurements Intervals [place] Rate: 128 P: 89 [place]: 108 QRS: 85 QRSD: 82 T: 69 QT: 334 QTc: 488 Interpretive Statements SINUS TACHYCARDIA WITH SHORT CA INTERVAL ST DEPRESSION, CONSIDER SUBENDOCARDIAL INJURY [0.1+ mV ST DEPRESSION] Compared to ECG 06/06/2020 12:01:52 Ventricular premature complex(es) no longer present Early repolarization no longer present ST (T wave) deviation still present Electronically Signed On 06-06-2020 19:25:59 IRRIGATION TEACHER by ZIGGY KANG [email or web address] - [id number]
[2020-06-06] MEDS: sulfamethoxazole-trimeth DS 160-800 mg Tablet 1 TAB PO (18:58)
[2020-06-06 19:02] LABS: Troponin 5 6HR 28.75 ng/L (0-10)
[2020-06-06] MEDS: budesonide 0.5 mg/2 mL Neb INHALATION (20:17)
[2020-06-07] VITALS (46 sets, daily range): BP systolic 115–149; BP diastolic 64–95; PULSE 82–133; RESP 0–42; TEMP 36.6–36.9; O2SAT 93–100
[2020-06-07] MEDS: ipratropium-albuterol 3 mL Neb INHALATION ×4 (00:27→12:23)
[2020-06-07 04:22] LABS: Hematocrit 41.2 % (37.0-47.0); Hemoglobin 12.9 g/dL (11.5-15.3); Lymphocytes # 0.3 10^3/uL (0.8-4.8); Lymphocytes % 8.6 %; Mean Corpuscular HGB Conc 31.3 g/dL (30.0-36.0); Mean Corpuscular Hemoglobin 28.5 pg (28.0-34.0); Mean Corpuscular Volume 91.2 fL (81-99); Mean Platelet Volume 9.9 fL (7.4-10.4); Monocytes # 0.1 10^3/uL (0.2-0.9); Monocytes % 2.2 %; Neutrophils # 3.21 10^3/uL (1.8-7.7); Neutrophils % 88.6 %; Nucleated Red Blood Cells % 0 %; Platelet Count 253 10^3/cmm (130-400); Red Blood Count 4.52 10^6/uL (4.1-5.3); Red Cell Distribution Width 12.4 % (12.1-15.1); White Blood Count 3.6 10^3/uL (4.0-10.0)
[2020-06-07 04:45] LABS: Alanine Aminotransferase 17 U/L (0-33); Albumin Level 3.6 g/dL (3.5-5.2); Alkaline Phosphatase 51 IU/L (35-105); Aspartate Amino Transferase 16 U/L (0-32); Blood Urea Nitrogen 23 mg/dL (6-20); Calcium 8.4 mg/dL (8.5-10.5); Chloride 80 mmol/L (98-107); Globulin 1.8 g/dL (1.3-4.6); Glomerular Filtration Rate 56.9 mL/min (90-130); Glucose 295 mg/dL (65-115); Osmolality Calculated 295 mOsm/kg (285-295); Potassium 4.4 mmol/L (3.5-5.1); Sodium 135 mmol/L (136-145); Total Bilirubin 0.5 mg/dL (0.15-1.2); Total Protein 5.4 g/dL (6.6-8.7)
--- NOTE | 2020-06-07 04:45 | PM.DCS ---
Discharge Providers Date of Admission: 06/06/20 14:26 Date of Discharge: June 07, 2020 - LEFT AMA Attending Provider at Admission: Faiza Perry MD Attending Provider at Discharge: Lin Bundy Diagnoses at Discharge Discharge Diagnosis (1) Acute exacerbation of chronic obstructive airways disease: Status: Inactive (2) Acute and chronic respiratory failure with hypercapnia: Status: Inactive (3) Congestive heart failure: Status: Inactive Qualifiers: Heart failure chronicity: acute on chronic Heart failure type: unspecified Qualified Code(s): I50.9 - Heart failure, unspecified Reason for Visit Reason for Visit: CHF EXACERBATION/ COPD Hospital Course Hospital Course 59 year old female with a past medical history of chronic hypercapnic respiratory failure secondary to COPD, on BiPAP at home, 2 L oxygen dependent, smoker, history of HIV on Biktarvy, who presents to [facility] due to complaints of shortness of breath. 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 daily, she also did receive Ativan for agitation. Noted to have increasing bilateral lower extremity edema, so also received Lasix. Chest x-ray shows hyperinflation, no acute consolidation at this present time or infiltrates at this present time. D-dimer is negative. Patient was started on bipap and admitted to ICU. She was slowly improving however very upset about being in the hospital. I discussed with her multiple time the need to stay however she verbalized understanding of risk of worsening and potentially left AMA Physical Exam Narrative: EXAM NARRATIVE: General: Took her bipap off, was more alert and awake, wanting to leave AMA HEENT: PERRLA, pupils bilaterally equal and reactive, pallors not present Chest: Harsh vesicular breath sounds to auscultation bilaterally CVS: S1-S2 regular, no murmurs, no tachycardia, no gallops, no rubs Abdomen: Soft, nontender, no organomegaly, bowel sounds present Neuro: No focal deficits, power 5/5 in all limbs Extremities: 2+ pitting edema over bilateral lower extremities Discharge Data Data Completed and Pending: Completed Studies During Hospitalization Category Date Time Status XR chest 1V wilda ble [id number] Urgent Exams 03/12/21 11:59 Completed Pending at discharge Category Date Time Status Arterial Blood Ga s Full Stat Lab 06/06/20 16:07 Ordered Vitals: Last Vital Signs Temp 98 F 06/07/20 14:04 Pulse 117 H 06/07/20 14:04 Resp 29 H 06/07/20 14:04 BP 117/66 06/07/20 14:04 Pulse Ox 95 06/07/20 14:04 Discharge Plan Discharge Patient Disposition: Left Against Medical Advice Condition: Fair Prescriptions: No Action sulfamethoxazole-trimethoprim [Bactrim] 400-80 mg tablet See Rx Instructions .ROUTE .COMPLEX RF: 0 montelukast [Singulair] 10 mg tablet 10 mg PO DAILY RF: 0 albuterol sulfate [ProAir HFA] 90 mcg/actuation HFA aerosol inhaler 2 puff INHALATION Q4H PRN (Reason: Shortness Of Breath) RF: 0 Biktarvy 50-200-25 mg tablet 1 tab PO DAILY RF: 0 Spiriva with HandiHaler 18 mcg Capsule, W/Inhalation Device 1 cap INHALATION DAILY RF: 0 budesonide-formoterol [Symbicort] 160-4.5 mcg/actuation Hfa Aerosol Inhaler 2 puff INHALATION BID RF: 0 ipratropium-albuterol 0.5 mg-3 mg(2.5 mg base)/3 mL Solution For Nebulization 3 ml INHALATION QID PRN (Reason: Shortness Of Breath) Qty: 180 RF: 0 Combivent Respimat 20-100 mcg/actuation mist 1 puff inhalation Q6H Qty: 4 RF: 0 azithromycin 600 mg tablet 1,200 mg PO .week 30 Days Qty: 4 RF: 0 nicotine 14 mg/24 hr Patch 24 Hour 1 patch transdermal DAILY PRN (Reason: nicotine withdrawal) Qty: 28 RF: 0 acyclovir 400 mg Tablet 400 mg PO TID 9 Days Qty: 27 RF: 0 prednisone 10 mg tablet 10 mg PO DAILY Qty: 53 RF: 0 (DME) glucometer See Rx Instructions .Route .MEDSUPPLY Qty: 1 RF: 0 Novolog Flexpen U-100 Insulin 100 unit/mL (3 mL) insulin pen See Rx Instructions .ROUTE .COMPLEX Qty: 15 RF: 0 budesonide 0.5 mg/2 mL suspension for nebulization 0.5 mg inhalation BID PRN (Reason: wheezing) Qty: 0 RF: 0 Lasix 20 mg tablet 20 mg PO DAILY PRN (Reason: Edema) Qty: 7 RF: 0 Discharge Attestations Time Spent in Discharge Care*: greater than 30 min Specific Discharge Activities: educating patient, documenting/other paperwork and evaluating patient/reviewing data Other discharge activites (optional): AMA form, discussion of risk of leaving Status at Discharge: Cognitive status at discharge: cognitively intact, Behavioral status at discharge: other (Uncooperative ), Overall status at discharge: patient is not back to baseline Quality Metrics Clinical Quality Measures During this hospital stay, did patient experience: None Coding Level of Care Code Acute Chg FW DC note Diagnoses Acute exacerbation of chronic obstructive airways disease J44.1 Acute and chronic respiratory failure with hypercapnia J96.22 Congestive heart failure I50.9 Heart failure chronicity: acute on chronic Heart failure type: unspecified
[2020-06-07 04:55] LABS: Anion Gap 9.4 (5-19)
[2020-06-07 04:59] LABS: Carbon Dioxide 50 mmol/L (22-29)
--- NOTE | 2020-06-07 07:48 | PC.NURSE ---
ASSUMING CARE 1900 Patient on BIPAP upon arrival at 35%. Patient appeared frustrated that she had to stay on BIPAP but educated on importance regarding ABG and CO2 levels. Patient agreed to leave it on for a little longer. Patient alert and oriented x 4 and on RA.
--- NOTE | 2020-06-07 07:49 | PC.NURSE ---
BIPAP REFUSAL Patient left BIPAP on until 2300 and has been refusing since after education.
--- NOTE | 2020-06-07 07:50 | PC.NURSE ---
SHIFT SUMMARY Patient remains alert and oriented, adequate urine output in BSC. No complaints or needs at this time. Patient changed to cardiac diet over night.
[2020-06-07] MEDS: budesonide 0.5 mg/2 mL Neb INHALATION (08:23)
[2020-06-07] MEDS: FUROsemide 10 mg/mL SDV 4mL 40 MG IVP (09:08)
[2020-06-07] MEDS: azithromycin 250 mg Tablet 500 MG PO (09:08)
--- NOTE | 2020-06-07 11:27 | PC.NURSE ---
awake off bipap at this time requsting to go home .. on o2 at 4lnc as per home alert and oriented up in room
[2020-06-07 15:01] LABS: Coronavirus Test Green County Not Detected
== END 2020-06-07 14:15 | disposition left against medical advice (07) | DRG 189 ==
LOC: ER 14:38 → ICU 15:03
PROVIDERS: Family Medicine; Admitting Provider Student in an Organized Health Care Education/Training Program; Emergency Provider Family Medicine; Visit Provider Hospitalist
DX: J96.22 Acute and chronic respiratory failure with hypercapnia (principal); J44.1 Chronic obstructive pulmonary disease with (acute) exacerbation; B20 Human immunodeficiency virus [HIV] disease; E46 Unspecified protein-calorie malnutrition; Z68.1 Body mass index [BMI] 19.9 or less, adult; Z99.81 Dependence on supplemental oxygen; F17.210 Nicotine dependence, cigarettes, uncomplicated; I50.9 Heart failure, unspecified; Z53.29 Procedure and treatment not carried out because of patient's decision for other reasons
CPT/HCPCS: 36415; 36600; 71045; 80051; 80053; 81001; 82330; 82550; 82805; 83605; 83880; 84484; 85025; 85378; 85610; 87426; 87635; 93005; 94640; 94660; 94664; 96374; 96375; 99291; J1940; J2060; J2930; J7626; Q0144

== ENCOUNTER 2020-06-13 18:23 | Inpatient (IN) | payer MEDICAID, SELFPAY ==
[2020-06-13] VITALS (12 sets, daily range): BP systolic 104–136; BP diastolic 74–86; PULSE 108–129; RESP 14–21; TEMP 36.7; O2SAT 93–100; BMI 15.0
--- NOTE | 2020-06-13 18:32 | XRR_ITS ---
PROCEDURE INFORMATION: Exam: XR Chest Exam date and time: 06/13/2020 6:37 PM Age: 59 years old Clinical indication: Shortness of breath; Additional info: SOB TECHNIQUE: Imaging protocol: XR of the chest Views: 1 view. COMPARISON: CR XR chest 1V portable [id number] 06/06/2020 1:56 PM FINDINGS: Lungs: Hyperinflation of lungs. Emphysematous lung changes. No consolidation. Pleural spaces: Unremarkable. No pleural effusion. No pneumothorax. Heart/Mediastinum: Unremarkable. No cardiomegaly. Bones/joints: Left lower posterolateral rib fracture with bone callus. XR/XR chest 1V portable [id number] IMPRESSION: 1. No focal pneumonia. 2. No change from prior.
[2020-06-13 18:50] LABS: ABG PCO2 98.5 mmHg (35-45); Arterial Blood Gas Hematocrit 42.3 % (37-47); Base Excess ABG 16.4 mmol/L (-2.0-2.0); Blood Gas Allen Test Pos; Blood Gas Operator Identificat CAK; Blood Gas Sample Site Brachial, left; Blood Gas Sample Type Arterial; HCO3 ABG 47.9 mmol/L (22-26); Oxygen Device NC; PO2 ABG 81.6 mmHg (80.0-100.0)
--- NOTE | 2020-06-13 19:05 | PC.NURSE ---
REPORT RECEIVED FROM ALICE SOSA AND CARE TRANSFERRED TO ALICE HOOD
[2020-06-13 19:27] LABS: Basophils % 0.1 %; Eosinophils # 0.1 10^3/uL (0.0-0.8); Eosinophils % 0.8 %; Hematocrit 46.4 % (37.0-47.0); Lymphocytes # 1.2 10^3/uL (0.8-4.8); Lymphocytes % 17.3 %; Mean Corpuscular HGB Conc 30.2 g/dL (30.0-36.0); Mean Corpuscular Hemoglobin 28.7 pg (28.0-34.0); Mean Corpuscular Volume 95.1 fL (81-99); Mean Platelet Volume 9.9 fL (7.4-10.4); Monocytes # 0.8 10^3/uL (0.2-0.9); Monocytes % 11.9 %; Neutrophils # 4.89 10^3/uL (1.8-7.7); Neutrophils % 69.3 %; Nucleated Red Blood Cells % 0 %; Platelet Count 236 10^3/cmm (130-400); Red Blood Count 4.88 10^6/uL (4.1-5.3); Red Cell Distribution Width 12.4 % (12.1-15.1); White Blood Count 7.1 10^3/uL (4.0-10.0)
[2020-06-13 19:35] LABS: Lactate (Lactic Acid level) 1.4 mmol/L (0.5-2.2)
[2020-06-13 19:36] LABS: Alanine Aminotransferase 22 U/L (0-33); Albumin Level 3.8 g/dL (3.5-5.2); Alkaline Phosphatase 55 IU/L (35-105); Anion Gap 9.3 (5-19); Aspartate Amino Transferase 22 U/L (0-32); Blood Urea Nitrogen 16 mg/dL (6-20); C Reactive Protein 0.8 mg/L (0.0-4.9); Chloride 87 mmol/L (98-107); Globulin 2.1 g/dL (1.3-4.6); Glomerular Filtration Rate 85.9 mL/min (90-130); Glucose 148 mg/dL (65-115); Osmolality Calculated 284 mOsm/kg (285-295); Potassium 4.3 mmol/L (3.5-5.1); Sodium 135 mmol/L (136-145); Total Bilirubin 0.7 mg/dL (0.15-1.2); Total Protein 5.9 g/dL (6.6-8.7)
[2020-06-13 19:37] LABS: Carbon Dioxide 43 mmol/L (22-29)
[2020-06-13] MEDS: LORazepam 2 mg/mL INJ 1 mL 0.5 MG IVP (19:53)
[2020-06-13] MEDS: ipratropium-albuterol 3 mL Neb INHALATION (21:00)
[2020-06-13] MEDS: azithromycin 500 MG in sodium chloride 0.9% 250 ML 250 MG IV (21:21)
--- NOTE | 2020-06-13 21:29 | P.HP_ITS ---
Providers/Chief Complaint Admitting Physician: Hosea Chief Complaint: resp distress History of Present Illness Adore Broussard is a 59 year old female who presented to the emergency room with chief complaint of difficulty breathing. She received some Ativan in the emergency room so I am not able to get much in the way of history from her. This is her fifth or sixth admission since April 23. She has COPD, by prior records continues to smoke, is on home ventilator and oxygen therapy. She also has HIV and is on reportedly antiretroviral therapy. CD4 count was done in April and absolute value was less than 20 from my interpretation of the results. Bactrim is on her home medication list. Chest x-ray today shows hyperinflation but no acute infiltrates. ED documentation indicates that she reported increased sputum production for several days. There was no report of any chest pain, fever, chills, nausea, vomiting or diarrhea. She did report some swelling in her lower extremities. Review of previous records indicates at some point Lasix was stopped. She has left AGAINST MEDICAL ADVICE a couple of times and the most recent admission looks like she left not too long after admission. She was tachypneic and had some pursed lip breathing on arrival. She was very anxious. She received Ativan as noted and was placed on some BiPAP therapy. Initial ABG showed 7.30/98/81/47. Review of prior values shows that her baseline PCO2 is probably around 80. She has follow-up with Dr. Bearden on an outpatient basis. She indicated that her home ventilator/CPAP/BiPAP was not working to the ER physician. This has been a frequent complaint when she comes in. Upon my evaluation, she had very low tidal volumes around 200 while on the ventilator and was breathing room around 40 times a minute. I removed BiPAP mask and within a short period of time tidal volumes improved. Adjustments in the settings were made. She was on AVAPS at the time. With change to BiPAP she did better. I am wondering if she is not tolerating settings on her home unit. Review of Systems General: Reports: ROS unobtainable due to mental status Medications/Allergies Home Medications Medication Instructions Recorded Confirmed Last Taken Type albuterol sulfate 90 mcg/actuation 2 puff INHALATION Q4H PRN 10/03/19 06/13/20 Unknown History aerosol inhaler montelukast 10 mg tablet 10 mg PO DAILY 07/11/1406/06/20 04/22/20 History sulfamethoxazole 400 See Rx Instructions .ROUTE 10/03/19 06/06/20 04/21/20 History mg-trimethoprim 80 mg tablet .COMPLEX tab Biktarvy 1 tab PO DAILY@0300 04/23/20 06/06/20 04/23/20 History Spiriva with HandiHaler 1 cap INHALATION DAILY 05/05/20 06/06/20 Unknown History budesonide-formoterol [Symbicort] 2 puff INHALATION BID 05/05/20 06/06/20 Unknown History ipratropium-albuterol 3 ml INHALATION QID PRN #180 ml 05/16/20 06/06/20 Unknown Rx furosemide [Lasix] 20 mg PO DAILY #7 tab 05/23/20 06/06/20 Unknown Rx revefenacin [Yupelri] 175 mcg INHALATION DAILY 06/06/20 06/06/20 Unknown History budesonide 0.5 mg INHALATION BID 06/13/20 06/13/20 Unknown History prednisone See Rx Instructions .ROUTE .COMPLEX 06/13/20 06/13/20 Unknown History Allergies Allergy/AdvReac Type Severity Reaction Status Date / Time Penicillins Allergy ALGY-Difficulty Verified 06/06/20 11:56 Breathing phenobarbital Allergy ALGY-Hives Verified 06/06/20 11:56 Tetanus Vaccines and Toxoid Allergy ALGY-Hives Verified 06/06/20 11:56 PFSH Acute PFSH: Medical History (Updated 06/13/20 @ 21:44 by Doris Jc MD) CHF (congestive heart failure) Ejection fraction 57% on echocardiogram done 05/15/2020 Chronic respiratory failure with hypoxia and hypercapnia Secondary to COPD and ongoing smoking, on home oxygen and has either a CPAP for home ventilator with inconsistent use from history COPD (chronic obstructive pulmonary disease) GERD (gastroesophageal reflux disease) HIV (human immunodeficiency virus infection) Absolute CD4 count in April 2020 looks to be less than 20. Home medication list indicates she is on Biktarvy and prophylactic Bactrim. Nicotine addiction Protein calorie malnutrition Surgical History H/O laparoscopy Family History Mother COPD (chronic obstructive pulmonary disease) Father CAD (coronary artery disease) Social History (Updated 06/13/20 @ 21:39 by Doris Jc MD) Smoking and tobacco status: current every day smoker cigarettes Years cigarettes smoked: 50 [ Other cigarette details: Hx of 1 PPD x 15 Years ] Second hand smoke exposure: Yes Alcohol intake: current Alcohol intake frequency: holidays/special occasions only Lives independently: Yes Household members: none Marital status: / Current occupational status: disabled History of recent travel: No Current gender identity: Female Vitals/I&O/Wt Last Vital Signs Temp 98.1 F 06/13/20 18:24 Pulse 118 H 06/13/20 21:22 Resp 21 H 06/13/20 21:22 BP 104/79 06/13/20 21:22 Pulse Ox 100 06/13/20 21:22 Weight last 48 hrs Weight 36.287 kg Physical Exam Const: OTHER: Lethargic, awakens and nods her head some to answers to questions but not consistent, thin build with chronic ill appearance HENMT: OTHER: Normocephalic, oropharynx not evaluated currently due to BiPAP Eye: OTHER: Pupils are reactive Neck/C-Spine: OTHER: Supple Resp: OTHER: Wheezes throughout, tachypnea, initially with some supra sternal notch retractions but with adjustment in BiPAP settings this improved, no nasal flaring, brace with mouth open, some intercostal retractions though a degree of this is due to body habitus Cardio: OTHER: Tachycardic, regular rhythm, 2+ radial pulses, 1+ pedal pulses GI: OTHER: Abdomen is soft, nontender, positive bowel sounds, nondistended : OTHER: Normal external genitalia Extremity: OTHER: Toes are mildly cyanotic and cool but with good capillary refill, has some chronic stasis changes. Left lower extremity is approximately 1-1/4 cm larger in diameter than the right lower extremity. No palpable cords. She denied tenderness. Left knee is erythematous with small abrasion over the patella but no warmth or effusion Neuro: OTHER: Face symmetric, moves all extremities, no tremors Psych: OTHER: Unable to adequately assess presently due to sedation Skin: OTHER: Dry skin, a few minor sores to the lower extremities Data : 06/13/20 19:07 06/13/20 19:07 A&P Assessment and plan (1) Acute hypercapnic respiratory failure: Status: Acute (2) Edema of left lower extremity: Status: Acute (3) Chronic respiratory failure with hypoxia and hypercapnia: Status: Acute (4) CHF (congestive heart failure): Status: Chronic Qualifiers: Heart failure type: diastolic Heart failure chronicity: acute on chronic Qualified Code(s): I50.33 - Acute on chronic diastolic (congestive) heart failure (5) HIV (human immunodeficiency virus infection): With low CD4 Status: Chronic Qualifiers: HIV symptom status: unspecified Qualified Code(s): B20 - Human immunodeficiency virus [HIV] disease (6) GERD (gastroesophageal reflux disease): Status: Chronic Qualifiers: Esophagitis presence: esophagitis presence not specified Qualified Code(s): K21.9 - Gastro-esophageal reflux disease without esophagitis (7) Nicotine addiction: Status: Chronic Qualifiers: Nicotine product type: cigarettes Substance use status: other nicotine- induced disorder Qualified Code(s): F17.218 - Nicotine dependence, cigarettes, with other nicotine-induced disorders Additional A&P Information Observation currently given degree of chronic respiratory failure and comparative ABG today although she may require transition to inpatient status depending on clinical course Continue BiPAP therapy Need to get some concept of if her machine is working at home, exactly what kind of machine it is, she may simply be noncompliant or the settings may be inappropriate for her based on my brief evaluation in the emergency room today Scheduled breathing treatments including inhaled steroids Systemic steroids We will continue Bactrim prophylaxis Add Levaquin Consider resumption of chronic daily or every other day therapy Angulo catheter for monitoring of urine output secondary to diuresis Ultrasound of the left lower extremity to evaluate for possibility of DVT Last CT of the chest was on May 04 and did not reveal any DVT Lovenox 30 mg subcu daily secondary to weight of 36 kg, for DVT prophylaxis Home antiretroviral therapy is not on formulary nor currently available Nicotine patch as needed PPI Supportive care otherwise Case management consultation secondary to recurrent admissions dating back to April 23 Patient has left AMA several times this year so I am not exactly sure what were going to be able to do to help her. I cannot discern if she is following up with her infectious disease doctor. CD4 count from what I can interpret in the results that were displayed looks to be less than 20 while quantitative HIV RNA was undetectable in April. I suspect current issues are related to noncompliance with respiratory therapy at home combined with continued smoking however difficult to fully rule out an underlying process related to her HIV. No gross infiltrates noted on chest x-ray. Full code based on previous available records Anticipate disposition home the need to evaluate options secondary to repeated admissions Attestations Medical Necessity Statement*: Anticipate hospital stay less than 2 midnights in a patient with chronic respiratory failure presenting again with acute respiratory failure associated with hypercapnia. She has been started on BiPAP therapy and has historically improved with this. She is often better the following day on review of admissions this year and that may be the case again this time as the remainder of her labs are really somewhat unremarkable. Will evaluate clinical course, results of pending studies and determine further care. Coding Level of Care Code Acute [place] [facility] for [place] Dickerson Diagnoses Acute hypercapnic respiratory failure J96.02 Edema of left lower extremity R60.0 Chronic respiratory failure with hypoxia and hypercapnia J96.11; J96.12 CHF (congestive heart failure) I50.33 Heart failure type: diastolic Heart failure chronicity: acute on chronic HIV (human immunodeficiency virus infection) B20 HIV symptom status: unspecified GERD (gastroesophageal reflux disease) K21.9 Esophagitis presence: esophagitis presence not specified Nicotine addiction F17.218 Nicotine product type: cigarettes Substance use status: other nicotine-induced disorder
--- NOTE | 2020-06-13 21:38 | PC.PHAR ---
pt unable to verify medications-medication entered are from previous entered med list and from what ext med history shows last filled-audit on medications shows dr velazquez put on hold from 06/06/20 ana soto yupelri-check pharmacy comments for notes about rxs--ext med history doesnt shows pt has filled lipitor 40mg,aspirin 81mg,carvedilol 3.125mg, pantoprazole 40mg since 04/26/20 30d/s
[2020-06-13 21:59] LABS: ABG PCO2 93.5 mmHg (35-45); ABG PH Result 7.32 (7.35-7.45); Arterial Blood Gas Hematocrit 40.3 % (37-47); Base Excess ABG 17.2 mmol/L (-2.0-2.0); Blood Gas Allen Test Pos; Blood Gas Operator Identificat HARKR; Blood Gas Sample Site Radial, right; Blood Gas Sample Type Arterial; Oxygen Device BIPAP; PO2 ABG 86.4 mmHg (80.0-100.0)
--- NOTE | 2020-06-13 23:29 | W.ED.SOB ---
HPI - SOB/Dyspnea General: Chief Complaint: Shortness of Breath/Dyspnea Stated Complaint: resp distress Time Seen by Provider: 06/13/20 18:23 Source: patient and EMS Mode of arrival: EMS Limitations: no limitations History of Present Illness: HPI Narrative: Patient is a 59-year-old female patient with COPD, chronic respiratory failure on oxygen at home but also has a trilogy ventilator at home. She was recently admitted to the hospital and managed as a case of a COPD exacerbation. She states that for the last 3 days she has been having worsening shortness of breath and feels like she is having a flareup of her COPD. She denies any fever. She is therefore here to be evaluated. MD elicited complaint: shortness of breath and cough Pertinent past history: COPD and congestive heart failure Onset (ago): day(s) (3) Context: recent illness Timing: constant Severity: severe Exacerbating factors: nothing Relieving factors: nothing Known history of: COPD and congestive heart failure Associated symptoms: Reports cough; Deny abdominal pain, chest congestion, chest pain, diaphoresis, dizziness, extremity pain, fever(s), hemoptysis, lightheadedness, myalgias, nausea, orthopnea, palpitations, paresthesias, polydipsia, polyuria, rash, sense of impending doom, syncope or vomiting Treatment prior to arrival: oxygen Review of Systems General: Reports: 10 or more systems reviewed and unremarkable except in HPI and below Const: Denies: fever(s) or diaphoresis Eyes: Denies: change in vision or blurry vision ENMT: Denies: throat pain, enlarged tonsils, odynophagia, hoarseness, mouth pain or swelling of lips/tongue Card: Denies: chest pain, palpitations, lightheadedness, syncope or orthopnea Resp: Denies: hemoptysis or chest congestion GI: Denies: abdominal pain, nausea or vomiting : Denies: flank pain, difficulty voiding, dysuria, urinary frequency, urinary urgency or urinary hesitancy Musc: Denies: extremity pain Skin/Breast: Denies: rash, pruritus or erythema Neuro: Denies: dizziness Endo: Denies: polyuria or polydipsia PFS ED PFSH: Medical History (Updated 06/13/20 @ 23:44 by Maine Dougherty MD, [facility] [place]) CHF (congestive heart failure) Ejection fraction 57% on echocardiogram done 05/15/2020 Chronic respiratory failure with hypoxia and hypercapnia Secondary to COPD and ongoing smoking, on home oxygen and has either a CPAP for home ventilator with inconsistent use from history COPD (chronic obstructive pulmonary disease) GERD (gastroesophageal reflux disease) HIV (human immunodeficiency virus infection) Absolute CD4 count in April 2020 looks to be less than 20. Home medication list indicates she is on Biktarvy and prophylactic Bactrim. Nicotine addiction Protein calorie malnutrition Surgical History H/O laparoscopy Family History Mother COPD (chronic obstructive pulmonary disease) Father CAD (coronary artery disease) Social History (Updated 06/13/20 @ 21:39 by Doris Jc MD) Smoking and tobacco status: current every day smoker cigarettes Years cigarettes smoked: 50 [ Other cigarette details: Hx of 1 PPD x 15 Years ] Second hand smoke exposure: Yes Alcohol intake: current Alcohol intake frequency: holidays/special occasions only Lives independently: Yes Household members: none Marital status: / Current occupational status: disabled History of recent travel: No Current gender identity: Female Physical Exam Const: COMMON NORMALS: no acute distress, average body habitus, patient oriented x3, no limitations, healthy appearing, alert and well nourished HENMT: COMMON NORMALS: normocephalic, atraumatic and moist oral mucous membranes HEAD & SCALP: normocephalic and atraumatic Neck/C-Spine: COMMON NORMALS: no meningeal signs and no JVD Resp: COMMON NORMALS: normal respiratory effort, No retractions, No use of accessory muscles and percussion normal AUSCULTATION: rales and diminished lung sounds PERCUSSION: percussion normal Cardio: COMMON NORMALS: no JVD, regular rate, regular rhythm, S1 normal heart sound present, S2 normal heart sound present, No gallops present (Cardio), No clicks present (Cardio), No murmurs present (Cardio), No rub (Cardio) and Peripheral pulses 2+ throughout RATE: regular rate RHYTHM: regular rhythm HEART SOUNDS: S1 normal heart sound present and S2 normal heart sound present PERIPHERAL PULSES: Peripheral pulses 2+ throughout GI: COMMON NORMALS: Normal to inspection, nondistended, normoactive bowel sounds present, Soft to palpation, non-tender, No hepatosplenomegaly present, no masses and no bruits PALPATION: Yes Soft to palpation and Yes No hepatosplenomegaly present Extremity: COMMON NORMALS: normal to inspection, full ROM, capillary refill normal and no calf tenderness GENERAL: Yes edema (left lower. Patient states that this is normal for her.) Neuro: COMMON NORMALS: patient oriented x3 SENSORIUM/ORIENTATION: Yes alert MENINGEAL SIGNS: Yes no meningeal signs Skin: COMMON NORMALS: no rashes or lesions noted, no wounds, turgor normal, no jaundice, no petechiae and no mottling GENERAL SKIN EXAM: no rashes or lesions noted and turgor normal Course Consultations: Consultation #1: Discussed the patient with Dr. Belcher and she kindly accepted patient to her service Vital Signs: Vital signs: Vital Signs Temperature 98.1 F 06/13/20 18:24 Pulse Rate 108 H 06/13/20 22:46 Respiratory Rate 21 H 06/13/20 22:46 Blood Pressure 110/76 06/13/20 22:46 Pulse Oximetry 100 06/13/20 22:46 MDM - SOB/Dyspnea MDM Narrative: Medical decision making narrative: This 59 year old female with a history of COPD who presents to the ED with worsening SOB. In the ED she was found to be in respiratory failure with hypercapnia. She was placed on a BiPAP but requested some sedation before she was placed on the BiPAP. She was given 0.5 mg of lorazepam and this kept her very sedated. She has had multiple hospital admissions for COPD exacerbation and in her last 2 hospital stays she has signed out AGAINST MEDICAL ADVICE when she gets a little better. She will be admitted to the hospital for further evaluation and management. Medical Records: Attestation: I reviewed the patient's medical records. Lab Data: Attestation: I reviewed the patient's lab results. Labs: Lab Results 06/13/20 06/13/20 06/13/20 Range/Units 18:39 19:07 19:07 WBC 7.1 (4.0-10.0) 10^3/ uL RBC 4.88 (4.1-5.3) 10^6/u L Hgb 14.0 (11.5-15.3) g/dL Hct 46.4 (37.0-47.0) % MCV 95.1 (81-99) fL MCH 28.7 (28.0-34.0) pg MCHC 30.2 (30.0-36.0) g/dL RDW 12.4 (12.1-15.1) % Plt Count 236 (130-400) 10^3/c mm MPV 9.9 (7.4-10.4) fL Neut % (Auto) 69.3 % Lymph % (Auto) 17.3 % Mckinley % (Auto) 11.9 % Eos % (Auto) 0.8 % Baso % (Auto) 0.1 % Neut # (Auto) 4.89 (1.8-7.7) 10^3/u L Lymph # (Auto) 1.2 (0.8-4.8) 10^3/u L Mckinley # (Auto) 0.8 (0.2-0.9) 10^3/u L Eos # (Auto) 0.1 (0.0-0.8) 10^3/u L Baso # (Auto) 0.0 (0.0-0.1) 10^3/u L Nucleated RBC % (a uto) 0 % Nucleated RBCs # 0.0 /100WBC Specimen Type Arterial Sample Site Brachial, left ABG pH 7.30 L (7.35-7.45) ABG pCO2 98.5 H* (35-45) mmHg ABG pO2 81.6 (80.0-100.0) mmH g ABG HCO3 47.9 H (22-26) mmol/L ABG Base Excess 16.4 H (-2.0-2.0) mmol/ L Adrian Test Pos Hematocrit 42.3 (37-47) % O2 Delivery Device Nc O2 Liters/Min 2.0 % FiO2 28.0 % Associate Software Development Engineer ID Cak Sodium 135 L (136-145) mmol/L Potassium 4.3 (3.5-5.1) mmol/L Chloride 87 L (98-107) mmol/L Carbon Dioxide 43 H* (22-29) mmol/L Anion Gap 9.3 (5-19) BUN 16 (6-20) mg/dL Creatinine 0.7 (0.5-0.9) mg/dL GFR Calculation 85.9 L (90-130) mL/min Glucose 148 H (65-115) mg/dL Calculated Osmolal ity 284 L (285-295) mOsm/k g Lactate (0.5-2.2) mmol/L Calcium 9.0 (8.5-10.5) mg/dL Total Bilirubin 0.7 (0.15-1.2) mg/dL AST 22 (0-32) U/L ALT 22 (0-33) U/L Alkaline Phosphata se 55 (35-105) IU/L C-Reactive Protein 0.8 (0.0-4.9) mg/L Total Protein 5.9 L (6.6-8.7) g/dL Albumin 3.8 (3.5-5.2) g/dL Globulin 2.1 (1.3-4.6) g/dL / Range/Units 19:07 WBC (4.0-10.0) 10^3/ uL RBC (4.1-5.3) 10^6/u L Hgb (11.5-15.3) g/dL Hct (37.0-47.0) % MCV (81-99) fL MCH (28.0-34.0) pg MCHC (30.0-36.0) g/dL RDW (12.1-15.1) % Plt Count (130-400) 10^3/c mm MPV (7.4-10.4) fL Neut % (Auto) % Lymph % (Auto) % Mckinley % (Auto) % Eos % (Auto) % Baso % (Auto) % Neut # (Auto) (1.8-7.7) 10^3/u L Lymph # (Auto) (0.8-4.8) 10^3/u L Mckinley # (Auto) (0.2-0.9) 10^3/u L Eos # (Auto) (0.0-0.8) 10^3/u L Baso # (Auto) (0.0-0.1) 10^3/u L Nucleated RBC % (a uto) % Nucleated RBCs # /100WBC Specimen Type Sample Site ABG pH (7.35-7.45) ABG pCO2 (35-45) mmHg ABG pO2 (80.0-100.0) mmH g ABG HCO3 (22-26) mmol/L ABG Base Excess (-2.0-2.0) mmol/ L Adrian Test Hematocrit (37-47) % O2 Delivery Device O2 Liters/Min % FiO2 % Associate Software Development Engineer ID Sodium (136-145) mmol/L Potassium (3.5-5.1) mmol/L Chloride (98-107) mmol/L Carbon Dioxide (22-29) mmol/L Anion Gap (5-19) BUN (6-20) mg/dL Creatinine (0.5-0.9) mg/dL GFR Calculation (90-130) mL/min Glucose (65-115) mg/dL Calculated Osmolal ity (285-295) mOsm/k g Lactate 1.4 (0.5-2.2) mmol/L Calcium (8.5-10.5) mg/dL Total Bilirubin (0.15-1.2) mg/dL AST (0-32) U/L ALT (0-33) U/L Alkaline Phosphata se (35-105) IU/L C-Reactive Protein (0.0-4.9) mg/L Total Protein (6.6-8.7) g/dL Albumin (3.5-5.2) g/dL Globulin (1.3-4.6) g/dL Imaging Data^: CXR: Attestation: I personally reviewed and interpreted this imaging study as follows: Radiologist's impression: [address] [address] XRay Report Signed Patient: Adore Broussard #: [id number] : 2Acct#:[id number] Age/Sex: 59 / FADM Date: 06/13/20 Loc: ERRoom/Bed: Attending Dr: Ordering Provider/Ordering MD: Maine Dougherty MD, [facility] [place] Date of Service: 06/13/20 Procedure(s): XR chest 1V portable [id number] Accession Number(s): [id number] Report Number: [id number] PROCEDURE INFORMATION: Exam: XR Chest Exam date and time: 06/13/2020 6:37 PM Age: 59 years old Clinical indication: Shortness of breath; Additional info: SOB TECHNIQUE: Imaging protocol: XR of the chest Views: 1 view. COMPARISON: CR XR chest 1V portable [id number] 06/06/2020 1:56 PM FINDINGS: Lungs: Hyperinflation of lungs. Emphysematous lung changes. No consolidation. Pleural spaces: Unremarkable. No pleural effusion. No pneumothorax. Heart/Mediastinum: Unremarkable. No cardiomegaly. Bones/joints: Left lower posterolateral rib fracture with bone callus. XR/XR chest 1V portable [id number] IMPRESSION: 1. No focal pneumonia. 2. No change from prior. Dictated By:Raphael Mejias Signed By:Alexia Mejias Date/Time:06/13/201909 DD/ 07 Critical Care Time Critical Care Time: Critical Care Time: Yes Total Critical Care Time: 45 Attestation: This case had a high probability of a clinically significant, sudden, or life threatening deterioration of this patient's condition which required my full and direct attention, intervention and personal management. Discharge Plan Discharge Patient Disposition: Admitted As Inpatient Admit Provider: Doris Jc Clinical Impression: Acute hypercapnic respiratory failure, Chronic respiratory failure with hypoxia and hypercapnia HIV (human immunodeficiency virus infection) Qualifiers: HIV symptom status: asymptomatic Qualified Code(s): Z21 - Asymptomatic human immunodeficiency virus [HIV] infection status Condition: Stable Coding Level of Care Code ED Bore Mill Operator For Plastic for Paris Dickerson
[2020-06-13] MEDS: enoxaparin 30 mg/0.3 mL Syringe SUBCUT (23:36)
[2020-06-13] MEDS: levofloxacin-dextrose 5 % 750 MG/150 ML PREMIX 100 MG IV (23:36)
[2020-06-13] MEDS: FUROsemide 10 mg/mL SDV 2mL 20 MG IVP (23:36)
[2020-06-14] VITALS (66 sets, daily range): BP systolic 86–166; BP diastolic 60–87; PULSE 106–134; RESP 12–47; TEMP 37.1–37.8; O2SAT 78–100
[2020-06-14] MEDS: ipratropium-albuterol 3 mL Neb INHALATION (02:28)
[2020-06-14 04:41] LABS: ABG PH Result 7.45 (7.35-7.45); Arterial Blood Gas Hematocrit 37.5 % (37-47); Base Excess ABG 23.2 mmol/L (-2.0-2.0); Blood Gas Sample Site Brachial, right; Blood Gas Sample Type Arterial; HCO3 ABG 51.5 mmol/L (22-26); Oxygen Device BIPAP; PO2 ABG 61.9 mmHg (80.0-100.0)
[2020-06-14 04:59] LABS: ABG PCO2 74.4 mmHg (35-45)
[2020-06-14 05:55] LABS: Basophils % 0.2 %; Eosinophils % 0.2 %; Hematocrit 42.7 % (37.0-47.0); Hemoglobin 13.5 g/dL (11.5-15.3); Lymphocytes # 0.3 10^3/uL (0.8-4.8); Lymphocytes % 4.9 %; Mean Corpuscular HGB Conc 31.6 g/dL (30.0-36.0); Mean Corpuscular Hemoglobin 28.8 pg (28.0-34.0); Mean Platelet Volume 10.5 fL (7.4-10.4); Monocytes # 0.1 10^3/uL (0.2-0.9); Neutrophils # 4.64 10^3/uL (1.8-7.7); Neutrophils % 91.7 %; Nucleated Red Blood Cells % 0 %; Platelet Count 239 10^3/cmm (130-400); Red Blood Count 4.69 10^6/uL (4.1-5.3); Red Cell Distribution Width 12.3 % (12.1-15.1); White Blood Count 5.1 10^3/uL (4.0-10.0)
[2020-06-14 06:19] LABS: Anion Gap 9.8 (5-19); Blood Urea Nitrogen 17 mg/dL (6-20); Calcium 8.8 mg/dL (8.5-10.5); Chloride 83 mmol/L (98-107); Glomerular Filtration Rate 85.9 mL/min (90-130); Glucose 277 mg/dL (65-115); Magnesium 1.8 mg/dL (1.7-2.3); Osmolality Calculated 289 mOsm/kg (285-295); Potassium 4.8 mmol/L (3.5-5.1); Sodium 134 mmol/L (136-145)
--- NOTE | 2020-06-14 06:24 | PC.NURSE ---
ASSUMING CARE Report received from ALICE Butler. Patient arrived from ED at 2321. Patient is alert and oriented x 4 and is on nasal cannula at 4L. Angulo catheter placed once patient arrived to unit.
--- NOTE | 2020-06-14 06:26 | PC.NURSE ---
BIPAP Patient did not want to wear BIPAP but was educated on importance with respiratory status. Patient agreed to wear and wore until 0400 hour.
[2020-06-14 06:33] LABS: Carbon Dioxide 46 mmol/L (22-29)
[2020-06-14 07:41] LABS: Glucose Point of Care 295 mg/dL (70-110)
[2020-06-14] MEDS: sulfamethoxazole-trimeth DS 160-800 mg Tablet 1 TAB PO ×2 (08:14→18:16)
[2020-06-14] MEDS: pantoprazole DR 40 mg Tablet PO (08:14)
[2020-06-14] MEDS: NON-FORMULARY MEDICATION (Bictegrav-Emtricit-Tenofov Ala [Biktarvy] 50-200-25 mg tablet) 1 EACH PO (10:27)
--- NOTE | 2020-06-14 10:29 | P.PN_ITS ---
Subjective Subjective: Interval history: She overall is feeling better this morning. Breathing easier. Denies chest pain. Coughing up some yellowish phlegm. Reports that her trilogy was exchanged for BiPAP, and still the new machine is also not pushing air very well, and so feels that it is not working. She also states she has been running a vaporizer at home to try to help maintain moisture in the air. Discussed with her to try to avoid doing that if possible, and if she needs it to at least make sure to disinfect the vaporizer at least weekly. Vitals/I&O/Wt Last Vital Signs Temp 98.1 F 06/13/20 18:24 Pulse 109 H 06/14/20 06:05 Resp 28 H 06/14/20 06:05 BP 118/73 06/14/20 05:00 Pulse Ox 100 06/14/20 06:05 06/13/20 06/14/20 06/14/20 22:59 06:59 14:59 Intake Total 250 / 250 480 / 730 570 / 570 Balance 250 / 250 480 / 730 570 / 570 Weight last 48 hrs Weight 40.46 kg Weight 36.287 kg Physical Exam Const: COMMON NORMALS: no acute distress, patient oriented x3 and alert GENERAL APPEARANCE: cooperative and comfortable NUTRITIONAL APPEARANCE: thin ORIENTATION/CONSCIOUSNESS: Yes awake HENMT: COMMON NORMALS: oropharynx normal Neck/C-Spine: COMMON NORMALS: no JVD Resp: COMMON NORMALS: normal respiratory effort AUSCULTATION: rhonchi, wheezes and diminished lung sounds Cardio: COMMON NORMALS: no JVD, regular rhythm, S1 normal heart sound present, S2 normal heart sound present and No murmurs present (Cardio) RATE: tachycardic RHYTHM: regular rhythm HEART SOUNDS: S1 normal heart sound present and S2 normal heart sound present GI: COMMON NORMALS: Normal to inspection, nondistended, normoactive bowel sounds present, Soft to palpation and non-tender PALPATION: Yes Soft to palpation Extremity: COMMON NORMALS: no joint enlargement OTHER: Minimal LLE edema compared to RLE Neuro: COMMON NORMALS: patient oriented x3 and moves all extremities SENSORIUM/ORIENTATION: Yes alert Skin: COMMON NORMALS: no rashes or lesions noted GENERAL SKIN EXAM: no rashes or lesions noted Urinary Catheter Management^: Angulo: Cath Placed During This Visit: yes Reason for Continuing Indwelling Catheter: Accurate Measurement of Urinary O utput in Critically Ill Patients Urinary Catheter Date of Insertion: 06/13/20 Urinary Catheter Time of Insertion: 23:15 Data : 06/14/20 04:31 06/14/20 04:31 A&P Assessment and plan (1) Acute hypercapnic respiratory failure: Improving. Hypercapnia improving. Weaned off BiPAP. Doing well on nasal cannula oxygen. Still coughing, wheezing, decreased air entry. Productive cough. Sinus tachycardia. Severe COPD exacerbation. She was wanting to go home, but agreeable to stay to continue treatment given the above findings. Continue IV steroids for now. Continue to biotics. Breathing treatments. She requests or addition of Combivent at home. Case management to look into her BiPAP to see if this can be inspected. Discussed with her avoidance of use of vaporizer, and otherwise at least regular disinfection. Status: Acute (2) HIV (human immunodeficiency virus infection): With low CD4, less than 20 in April. Viral counts undetectable in April. Discussed with her. She states has been having telehealth appointments with her ID physician who is also her PCP Dr. Ta Salas. She is on Levaquin for COPD exacerbation. Discussed with her after this is c omplete to avoid QT prolongation, then may start additional azithromycin 1200 mg once weekly for disseminated MAC prophylaxis. Status: Chronic Qualifiers: HIV symptom status: asymptomatic Qualified Code(s): Z21 - Asymptomatic human immunodeficiency virus [HIV] infection status (3) Chronic respiratory failure with hypoxia and hypercapnia: Status: Acute (4) CHF (congestive heart failure): Status: Chronic Qualifiers: Heart failure type: diastolic Heart failure chronicity: acute on chronic Qualified Code(s): I50.33 - Acute on chronic diastolic (congestive) heart failure (5) GERD (gastroesophageal reflux disease): Status: Chronic Qualifiers: Esophagitis presence: esophagitis presence not specified Qualified Code(s): K21.9 - Gastro-esophageal reflux disease without esophagitis (6) Nicotine addiction: Status: Chronic Qualifiers: Nicotine product type: cigarettes Substance use status: other nicotine- induced disorder Qualified Code(s): F17.218 - Nicotine dependence, cigarettes, with other nicotine-induced disorders (7) Edema of left lower extremity: No DVT on venous duplex. Status: Acute Attestations Medical Necessity Statement*: Admission of over 2 midnights is needed for assessment management of severe COPD exacerbation, with improving acute respiratory failure. Coding Level of Care Code Acute Survey Statistician for Chg Fwd Diagnoses Acute hypercapnic respiratory failure J96.02 HIV (human immunodeficiency virus infection) Z21 HIV symptom status: asymptomatic Chronic respiratory failure with hypoxia and hypercapnia J96.11; J96.12 CHF (congestive heart failure) I50.33 Heart failure type: diastolic Heart failure chronicity: acute on chronic GERD (gastroesophageal reflux disease) K21.9 Esophagitis presence: esophagitis presence not specified Nicotine addiction F17.218 Nicotine product type: cigarettes Substance use status: other nicotine-induced disorder Edema of left lower extremity R60.0
[2020-06-14 11:18] LABS: Glucose Point of Care 193 mg/dL (70-110)
--- NOTE | 2020-06-14 15:05 | PC.NURSE ---
report given to rob fulton. will transfer pt to [facility] via wheelchair.
--- NOTE | 2020-06-14 15:35 | PC.NURSE ---
all documentation completed by Jose C Velez Student Nurse has been assessed by this nurse and verified.
[2020-06-14 17:04] LABS: Glucose Point of Care 322 mg/dL (70-110)
[2020-06-14 20:32] LABS: Glucose Point of Care 261 mg/dL (70-110)
[2020-06-14] MEDS: enoxaparin 30 mg/0.3 mL Syringe SUBCUT (21:51)
[2020-06-14] MEDS: levofloxacin-dextrose 5 % 750 MG/150 ML PREMIX 100 MG IV (21:54)
--- NOTE | 2020-06-14 22:47 | USR_ITS ---
PROCEDURE INFORMATION: Exam: US Duplex Left Lower Extremity Veins, Limited Exam date and time: 06/14/2020 6:37 AM Age: 59 years old Clinical indication: Swelling (edema) of limb; Lower extremity, left; Additional info: Lle swollen compared to rle, resp failure TECHNIQUE: Imaging protocol: Real-time Duplex ultrasound of the Left Lower Extremity with 2-D jacobo scale, color Doppler flow and spectral waveform analysis with image documentation. Limited exam focused on the left lower extremity veins. COMPARISON: No relevant prior studies available. FINDINGS: Left deep veins: Unremarkable. The common femoral, femoral, proximal profunda femoral and popliteal veins are patent without thrombus. Normal Doppler waveforms. Normal compressibility and/or augmentation response. Left superficial veins: Unremarkable. Saphenofemoral junction is patent without thrombus. Soft tissues: Unremarkable. US/CV venous duplex [facility] [id number] IMPRESSION: No evidence of deep vein thrombosis.
[2020-06-15] VITALS (17 sets, daily range): BP systolic 129–154; BP diastolic 70–88; PULSE 99–134; RESP 17–24; TEMP 36.4–37.4; O2SAT 93–98
[2020-06-15 06:25] LABS: Glucose Point of Care 256 mg/dL (70-110)
[2020-06-15 06:33] LABS: Blood Urea Nitrogen 19 mg/dL (6-20); Calcium 8.6 mg/dL (8.5-10.5); Chloride 89 mmol/L (98-107); Glomerular Filtration Rate 73.7 mL/min (90-130); Glucose 251 mg/dL (65-115); Osmolality Calculated 289 mOsm/kg (285-295); Sodium 134 mmol/L (136-145)
[2020-06-15 06:44] LABS: Carbon Dioxide 45 mmol/L (22-29)
[2020-06-15] MEDS: montelukast sodium 10 mg Tablet PO (08:09)
[2020-06-15] MEDS: NON-FORMULARY MEDICATION (Bictegrav-Emtricit-Tenofov Ala [Biktarvy] 50-200-25 mg tablet) 1 EACH PO (08:09)
[2020-06-15] MEDS: pantoprazole DR 40 mg Tablet PO (08:10)
[2020-06-15] MEDS: sulfamethoxazole-trimeth DS 160-800 mg Tablet 1 TAB PO ×2 (08:10→17:01)
--- NOTE | 2020-06-15 10:02 | PM.PN ---
Subjective Subjective: Interval history: Short of breath this morning. Last night had a fever. Denies chest pain. No cough. Wheezing on exam. Perianal/sacral papular/shallow ulceration erythematous rash without surrounding erythema, signs of cellulitis. No abscess or drainage. Not painful or pruritic. Vitals/I&O/Wt Last Vital Signs Temp 98.1 F 06/15/20 07:33 Pulse 109 H 06/15/20 07:50 Resp 20 H 06/15/20 07:46 BP 144/76 06/15/20 07:33 Pulse Ox 97 06/15/20 07:46 06/14/20 06/15/20 06/15/20 22:59 06:59 14:59 Intake Total 120 / 1090 52 / 1142 270 / 270 Output Total 1000 / 1175 Balance 120 / 915 -948 / -33 270 / 270 Weight last 48 hrs Weight 41.73 kg Weight 40.46 kg Weight 36.287 kg Physical Exam Const: COMMON NORMALS: no acute distress, patient oriented x3 and alert GENERAL APPEARANCE: cooperative, comfortable and anxious NUTRITIONAL APPEARANCE: thin ORIENTATION/CONSCIOUSNESS: Yes awake HENMT: COMMON NORMALS: oropharynx normal Neck/C-Spine: COMMON NORMALS: no JVD Resp: COMMON NORMALS: normal respiratory effort AUSCULTATION: no rhonchi, wheezes and diminished lung sounds Cardio: COMMON NORMALS: no JVD, regular rhythm, S1 normal heart sound present, S2 normal heart sound present and No murmurs present (Cardio) RATE: tachycardic RHYTHM: regular rhythm HEART SOUNDS: S1 normal heart sound present and S2 normal heart sound present GI: COMMON NORMALS: Normal to inspection, nondistended, normoactive bowel sounds present, Soft to palpation and non-tender PALPATION: Yes Soft to palpation : OTHER: Perianal and sacral papular/ulceration with eschar rash without surrounding erythema. No fluctuance/drainage or abscess-like features. Nontender, nonpruritic. Extremity: COMMON NORMALS: no joint enlargement OTHER: Minimal LLE edema compared to RLE Neuro: COMMON NORMALS: patient oriented x3 and moves all extremities SENSORIUM/ORIENTATION: Yes alert Skin: COMMON NORMALS: no rashes or lesions noted GENERAL SKIN EXAM: no rashes or lesions noted Urinary Catheter Management^: Angulo: Cath Placed During This Visit: yes, but has since been removed by the nurse Reason for Continuing Indwelling Catheter: Decision to DC Catheter Urinary Catheter Date of Insertion: 06/13/20 Urinary Catheter Time of Insertion: 23:15 Date Urinary Catheter Removed: 06/14/20 Time Urinary Catheter Discontinued: 11:00 Data : 06/14/20 04:31 06/15/20 05:45 A&P Assessment and plan (1) Acute hypercapnic respiratory failure: This morning worse again. Sounds tight. Short of breath. Wheezing. No cough. Last night low-grade fever. She was willing to go home, however, agreeable to stay given she is doing somewhat worse this morning. Saturation appears to be good. Replace IV, continue IV steroid. We will obtain chest x-ray to assess for any developing pneumonia. Continue antibiotic. Breathing treatments. She request for albuterol inhaler, says it works better for her than nebulizer. Add. Case management confirmed that she used to have trilogy, currently BiPAP at home. On discharge RT will need to be requested from [facility] [place] to visit her and reassess the machine, work on settings. She is encouraged to avoid or at least sanitize any kind of vaporizers at home. She requests or addition of Combivent at home. Status: Acute (2) Perianal rash: Yesterday found to have perianal rash of unknown duration. Nontender, nonpruritic. Red papules/ulcerations with eschar up to a centimeter in size, no surrounding erythema, no drainage, no fluctuance due to suggest abscesses. Bilateral distribution. Appears possible herpes simplex. Will start acyclovir. Will assess viral culture, HSV PCR. Will request RPR. Chlamydia/gonorrhea panel. Consider LGV. Status: Acute (3) HIV (human immunodeficiency virus infection): AIDS with low CD4, less than 20 in April. Viral counts undetectable in April. Discussed with her. She states has been having telehealth appointments with her ID physician who is also her PCP Dr. Ta Salas. She is on Levaquin for COPD exacerbation. Discussed with her after this is complete to avoid QT prolongation, then may start additional azithromycin 1200 mg once weekly for disseminated MAC prophylaxis. Follow-up with ID. If unable to make for appointments to [place], consider setting up closer. Status: Chronic Qualifiers: HIV symptom status: asymptomatic Qualified Code(s): Z21 - Asymptomatic human immunodeficiency virus [HIV] infection status (4) Chronic respiratory failure with hypoxia and hypercapnia: Status: Acute (5) CHF (congestive heart failure): Status: Chronic Qualifiers: Heart failure type: diastolic Heart failure chronicity: acute on chronic Qualified Code(s): I50.33 - Acute on chronic diastolic (congestive) heart failure (6) GERD (gastroesophageal reflux disease): Status: Chronic Qualifiers: Esophagitis presence: esophagitis presence not specified Qualified Code(s): K21.9 - Gastro-esophageal reflux disease without esophagitis (7) Nicotine addiction: Status: Chronic Qualifiers: Nicotine product type: cigarettes Substance use status: other nicotine-induced disorder Qualified Code(s): F17.218 - Nicotine dependence, cigarettes, with other nicotine-induced disorders (8) Edema of left lower extremity: No DVT on venous duplex. Status: Acute (9) Fever: Last night. As above. Blood culture, chest x-ray, UA. Additional assessment of sacral rash as above. If recurrent, without apparent source, consider consultation with ID. Status: Acute Attestations Medical Necessity Statement*: Continue admission for assessment management of acute on chronic respiratory failure, fever, lady with underlying HIV/AIDS. Coding Level of Care Code Acute Health And Safety Manager for [facility] Fwd Diagnoses Acute hypercapnic respiratory failure J96.02 Perianal rash R21 HIV (human immunodeficiency virus infection) Z21 HIV symptom status: asymptomatic Chronic respiratory failure with hypoxia and hypercapnia J96.11; J96.12 CHF (congestive heart failure) I50.33 Heart failure type: diastolic Heart failure chronicity: acute on chronic GERD (gastroesophageal reflux disease) K21.9 Esophagitis presence: esophagitis presence not specified Nicotine addiction F17.218 Nicotine product type: cigarettes Substance use status: other nicotine-induced disorder Edema of left lower extremity R60.0 Fever R50.9
--- NOTE | 2020-06-15 10:05 | XRR_ITS ---
PROCEDURE INFORMATION: Exam: XR Chest Exam date and time: 06/15/2020 10:09 AM Age: 59 years old Clinical indication: Shortness of breath; Additional info: Hypoxia TECHNIQUE: Imaging protocol: XR of the chest Views: 1 view. COMPARISON: CR XR chest 1V portable [id number] 06/13/2020 6:34 PM FINDINGS: Lungs: The lungs are symmetrically expanded. Evidence of centrilobular emphysema. No focal consolidation. Pleural spaces: Unremarkable. No pleural effusion. No pneumothorax. Heart/Mediastinum: Unremarkable. No cardiomegaly. Bones/joints: Unremarkable. XR/XR chest 1V portable [id number] IMPRESSION: No acute findings.
[2020-06-15] MEDS: ipratropium-albuterol 3 mL Neb INHALATION ×3 (10:10→20:09)
[2020-06-15] MEDS: albuterol 8 gm MDI 2 PUFF INHALATION (10:10)
[2020-06-15 11:49] LABS: Glucose Point of Care 147 mg/dL (70-110)
[2020-06-15] MEDS: acyclovir 400 mg Tablet PO ×3 (11:58→20:43)
[2020-06-15] MEDS: fluticasone nasal spray 16gm Btl 1 SPRAY NASAL (11:58)
--- NOTE | 2020-06-15 12:05 | PC.NURSE ---
THIS NURSE COMPLETED OFF A HERPES SIMPLEX VIRUS SWAB BY ACCIDENT. CONFIRMED WITH LAB. ORDER CORRECTED.
[2020-06-15 12:35] LABS: Rapid Plasma Reagin Syphilis Nonreactive (Nonreactive)
[2020-06-15 15:06] LABS: Bilirubin Urine Neg (Negative); Blood Urine Neg (Negative); Glucose Urine UA 2+ (Normal); Ketones Urine Negative (Negative); Nitrate Urine Negative (Negative); Protein Urine Neg (Negative); Sulfosalicylic Acid Urine Negative (Negative); Urine Appearance Hazy (CLEAR); Urine Color Yellow (Yellow); pH Urine 8 (5-7)
[2020-06-15 15:07] LABS: Add Urine Culture? No; Add Urine Microscopic? YES; Bacteria Urine 1+ /hpf; Leukocyte Esterase Urine Negative (Negative); Urobilinogen Urine Norm (Negative); WBC Urine 0-4 /hpf (0-5)
[2020-06-15 16:58] LABS: Glucose Point of Care 270 mg/dL (70-110)
[2020-06-15] MEDS: aspirin 81 mg EC Tablet 162 MG PO (17:01)
[2020-06-15 20:02] LABS: Glucose Point of Care 288 mg/dL (70-110)
[2020-06-15] MEDS: budesonide 0.5 mg/2 mL Neb INHALATION (20:09)
[2020-06-15] MEDS: levofloxacin-dextrose 5 % 750 MG/150 ML PREMIX 100 MG IV (22:52)
[2020-06-15] MEDS: enoxaparin 30 mg/0.3 mL Syringe SUBCUT (22:52)
[2020-06-16] VITALS (10 sets, daily range): BP systolic 131–150; BP diastolic 65–81; PULSE 97–126; RESP 17–98; TEMP 36.9–37.2; O2SAT 93–98
[2020-06-16 06:56] LABS: Basophils % 0.1 %; Hematocrit 34.1 % (37.0-47.0); Hemoglobin 10.7 g/dL (11.5-15.3); Lymphocytes # 0.5 10^3/uL (0.8-4.8); Lymphocytes % 6.4 %; Mean Corpuscular HGB Conc 31.4 g/dL (30.0-36.0); Mean Corpuscular Hemoglobin 28.5 pg (28.0-34.0); Mean Corpuscular Volume 90.9 fL (81-99); Mean Platelet Volume 10.9 fL (7.4-10.4); Monocytes # 0.3 10^3/uL (0.2-0.9); Monocytes % 3.4 %; Neutrophils # 7.29 10^3/uL (1.8-7.7); Neutrophils % 89.5 %; Nucleated Red Blood Cells % 0 %; Platelet Count 219 10^3/cmm (130-400); Red Blood Count 3.75 10^6/uL (4.1-5.3); Red Cell Distribution Width 12.8 % (12.1-15.1); White Blood Count 8.2 10^3/uL (4.0-10.0)
[2020-06-16 07:24] LABS: Alanine Aminotransferase 15 U/L (0-33); Albumin Level 3.2 g/dL (3.5-5.2); Alkaline Phosphatase 39 IU/L (35-105); Anion Gap 8.2 (5-19); Aspartate Amino Transferase 16 U/L (0-32); Blood Urea Nitrogen 21 mg/dL (6-20); Calcium 8.4 mg/dL (8.5-10.5); Carbon Dioxide 40 mmol/L (22-29); Chloride 90 mmol/L (98-107); Globulin 1.7 g/dL (1.3-4.6); Glomerular Filtration Rate 64.3 mL/min (90-130); Glucose 160 mg/dL (65-115); Osmolality Calculated 282 mOsm/kg (285-295); Potassium 5.2 mmol/L (3.5-5.1); Sodium 133 mmol/L (136-145); Total Bilirubin 0.4 mg/dL (0.15-1.2); Total Protein 4.9 g/dL (6.6-8.7)
[2020-06-16] MEDS: acyclovir 400 mg Tablet PO (09:10)
[2020-06-16] MEDS: pantoprazole DR 40 mg Tablet PO (09:10)
[2020-06-16] MEDS: montelukast sodium 10 mg Tablet PO (09:10)
[2020-06-16] MEDS: sulfamethoxazole-trimeth DS 160-800 mg Tablet 1 TAB PO (09:10)
[2020-06-16] MEDS: NON-FORMULARY MEDICATION (Bictegrav-Emtricit-Tenofov Ala [Biktarvy] 50-200-25 mg tablet) 1 EACH PO (09:11)
[2020-06-16 09:20] LABS: Glucose Point of Care 248 mg/dL (70-110)
[2020-06-16] MEDS: ipratropium-albuterol 3 mL Neb INHALATION (09:51)
--- NOTE | 2020-06-16 09:55 | PC.NURSE ---
[facility] call from patient's galindo Andersen [phone] requesting call from patient's nurse. Caller is on patient's PHI form. Legal Billing Clerk notified care nurse Tim.
[2020-06-16 11:04] LABS: Glucose Point of Care 179 mg/dL (70-110)
--- NOTE | 2020-06-16 12:41 | P.DS_ITS ---
Discharge Providers Date of Admission: 06/14/20 07:48 Date of Discharge: June 16, 2020 Attending Provider at Admission: Doris Jc MD Attending Provider at Discharge: Nba Wagner MD Primary Care Provider: Ta Salas MD Diagnoses at Discharge Discharge Diagnosis (1) Acute hypercapnic respiratory failure: Status: Acute (2) Perianal rash: Status: Acute (3) HIV (human immunodeficiency virus infection): Status: Chronic Permanent problem details: Absolute CD4 count in April 2020 looks to be less than 20. Home medication list indicates she is on Biktarvy and prophylactic Bactrim. Qualifiers: HIV symptom status: asymptomatic Qualified Code(s): Z21 - Asymptomatic human immunodeficiency virus [HIV] infection status (4) Chronic respiratory failure with hypoxia and hypercapnia: Status: Acute Permanent problem details: Secondary to COPD and ongoing smoking, on home oxygen and has either a CPAP for home ventilator with inconsistent use from history (5) CHF (congestive heart failure): Status: Chronic Permanent problem details: Ejection fraction 57% on echocardiogram done 05/15/2020 Qualifiers: Heart failure type: diastolic Heart failure chronicity: acute on chronic Qualified Code(s): I50.33 - Acute on chronic diastolic (congestive) heart failure (6) GERD (gastroesophageal reflux disease): Status: Chronic Qualifiers: Esophagitis presence: esophagitis presence not specified Qualified Code(s): K21.9 - Gastro-esophageal reflux disease without esophagitis (7) Nicotine addiction: Status: Chronic Qualifiers: Nicotine product type: cigarettes Substance use status: other nicotine- induced disorder Qualified Code(s): F17.218 - Nicotine dependence, cigarettes, with other nicotine-induced disorders (8) Edema of left lower extremity: Status: Acute (9) Fever: Status: Acute Reason for Visit Reason for Visit: resp distress Hospital Course Hospital Course This is a 59-year-old female with a past medical history of chronic hypercapnic respiratory failure secondary to COPD, now on home trilogy, 2 L oxygen dependent, smoker, history of HIV on Biktarvy, history of CD4 count of 9 undetectable viral load on prophylactic Bactrim who presents to [facility] for shortness of breath Patient was admitted to [facility] for acute on chronic hypercapnic respiratory failure secondary to COPD, she received BiPAP therapy, steroid therapy, broad-spectrum antibiotic therapy, clinically monitored. Recently patient's BiPAP had been changed to home trilogy machine, and she had received education. Patient clinically improved, discharged on her home trilogy machine, she will receive enhanced education the trilogy machine tomorrow by representatives, steroid taper, close follow-up with pulmonary as outpatient. For her HIV, her CD4 count is 9, however she has undetectable viral load, continued prophylactic Bactrim, after discussion with infectious disease, we have continued prophylactic azithromycin for MAC prophylaxis. Patient will follow up with infectious disease as outpatient, in addition should follow-up [facility] hematology and oncology. Patient's TB QuantiFERON gold is pending on discharge. Patient was noted to have elevated blood sugars on discharge, requiring more than 20 units of insulin of sliding scale in the last 24 hours, her last hemoglobin A1c was 5.6, prediabetic range, current hemoglobin A1c is pending. I have discharged her on an insulin sliding scale, NovoLog pen, instructions have been provided, hemoglobin A1c is pending on discharge. Physical Exam Const: COMMON NORMALS: no acute distress and patient oriented x3 HENMT: COMMON NORMALS: normocephalic HEAD & SCALP: normocephalic Neck/C-Spine: COMMON NORMALS: no JVD Resp: COMMON NORMALS: normal respiratory effort, No retractions, No use of accessory muscles and clear to auscultation bilaterally AUSCULTATION: clear to auscultation bilaterally Cardio: COMMON NORMALS: no JVD, regular rate, regular rhythm, S1 normal heart sound present and S2 normal heart sound present RATE: regular rate RHYTHM: regular rhythm HEART SOUNDS: S1 normal heart sound present and S2 normal heart sound present GI: COMMON NORMALS: Normal to inspection, nondistended, normoactive bowel sounds present, Soft to palpation, non-tender, No hepatosplenomegaly present, no masses and no bruits PALPATION: Yes Soft to palpation and Yes No hepatosplenomegaly present Extremity: COMMON NORMALS: capillary refill normal, no clubbing, cyanosis or edema, no calf tenderness and no pedal edema Neuro: COMMON NORMALS: patient oriented x3 Psych: COMMON NORMALS: mental status grossly normal Urinary Catheter Management^: Angulo: Cath Placed During This Visit: yes, but has since been removed by the nurse Reason for Continuing Indwelling Catheter: Decision to DC Catheter Urinary Catheter Date of Insertion: 06/13/20 Urinary Catheter Time of Insertion: 23:15 Date Urinary Catheter Removed: 06/14/20 Time Urinary Catheter Discontinued: 11:00 Discharge Data Data Completed and Pending: Completed Studies During Hospitalization Category Date Time Status XR chest 1V wilda ble [id number] Stat Exams 06/13/20 18:32 Completed XR chest 1V wilda ble [id number] Stat Exams 06/15/20 10:05 [place] [id number] Routin e Ultrasound 06/14/20 22:47 Completed Pending at discharge Category Date Time Status Arterial Blood Ga s W/O Coox Routine Lab 06/13/20 22:02 Ordered Blood Culture Sta t Lab 06/15/20 10:46 Results Chlamydia / Gonor jamila Panel Routine Lab 06/15/20 13:48 Received Complete Blood Co unt w/Auto AM LABS Lab 06/17/20 04:00 Ordered Complete Blood Co unt w/Auto AM LABS Lab 06/18/20 04:00 Ordered Comprehensive Met abolic Panel AM LA BS Lab 06/17/20 04:00 Ordered Comprehensive Met abolic Panel AM LA BS Lab 06/18/20 04:[address] at Lab 06/16/20 06:03 Received Herpes Simplex Vi sayra DNA Routine Lab 06/15/20 12:07 Received Sputum Culture an d Gram Stain Stat Lab 06/16/20 09:58 Uncollected Viral Culture Bod y Flds,Tissue Rout ine Lab 06/15/20 10:07 Ordered Labs from last 24 hours 06/16/20 06/16/20 06/16/20 10:44 09:08 06:03 WBC RBC Hgb Hct MCV MCH MCHC RDW Plt Count MPV Neut % (Auto) Lymph % (Auto) Calhoun % (Auto) Eos % (Auto) Baso % (Auto) Neut # (Auto) Lymph # (Auto) Calhoun # (Auto) Eos # (Auto) Baso # (Auto) Nucleated RBC % (a uto) Nucleated RBCs # Sodium Potassium Chloride Carbon Dioxide Anion Gap BUN Creatinine GFR Calculation Glucose POC Glucose 179 H 248 H Estimat Average Gl ucose Pending Hemoglobin A1c Pending Calculated Osmolal ity Calcium Total Bilirubin AST ALT Alkaline Phosphata se Total Protein Albumin Globulin Urine Color Urine Appearance Urine pH Ur Specific Gravit y Urine Protein Urine Glucose (UA) Urine Ketones Urine Blood Urine Nitrate Urine Bilirubin Prot Sulfosalicyli c Acd Urine Urobilinogen Ur Leukocyte Verona ase Urine RBC Urine WBC Ur Squamous Epith Cells Amorphous Sediment Urine Bacteria 06/16/20 06/16/20 06/15/20 06:03 06:03 19:55 WBC 8.2 RBC 3.75 L Hgb 10.7 L Hct 34.1 L MCV 90.9 MCH 28.5 MCHC 31.4 RDW 12.8 Plt Count 219 MPV 10.9 H Neut % (Auto) 89.5 Lymph % (Auto) 6.4 Calhoun % (Auto) 3.4 Eos % (Auto) 0.0 Baso % (Auto) 0.1 Neut # (Auto) 7.29 Lymph # (Auto) 0.5 L Calhoun # (Auto) 0.3 Eos # (Auto) 0.0 Baso # (Auto) 0.0 Nucleated RBC % (a uto) 0 Nucleated RBCs # 0.0 Sodium 133 L Potassium 5.2 H Chloride 90 L Carbon Dioxide 40 H Anion Gap 8.2 BUN 21 H Creatinine 0.9 GFR Calculation 64.3 L Glucose 160 H POC Glucose 288 H Estimat Average Gl ucose Hemoglobin A1c Calculated Osmolal ity 282 L Calcium 8.4 L Total Bilirubin 0.4 AST 16 ALT 15 Alkaline Phosphata se 39 Total Protein 4.9 L Albumin 3.2 L Globulin 1.7 Urine Color Urine Appearance Urine pH Ur Specific Gravit y Urine Protein Urine Glucose (UA) Urine Ketones Urine Blood Urine Nitrate Urine Bilirubin Prot Sulfosalicyli c Acd Urine Urobilinogen Ur Leukocyte Verona ase Urine RBC Urine WBC Ur Squamous Epith Cells Amorphous Sediment Urine Bacteria 06/15/20 06/15/20 16:53 13:48 WBC RBC Hgb Hct MCV MCH MCHC RDW Plt Count MPV Neut % (Auto) Lymph % (Auto) Calhoun % (Auto) Eos % (Auto) Baso % (Auto) Neut # (Auto) Lymph # (Auto) Calhoun # (Auto) Eos # (Auto) Baso # (Auto) Nucleated RBC % (a uto) Nucleated RBCs # Sodium Potassium Chloride Carbon Dioxide Anion Gap BUN Creatinine GFR Calculation Glucose POC Glucose 270 H Estimat Average Gl ucose Hemoglobin A1c Calculated Osmolal ity Calcium Total Bilirubin AST ALT Alkaline Phosphata se Total Protein Albumin Globulin Urine Color Yellow Urine Appearance Hazy A Urine pH 8 H Ur Specific Gravit y 1.010 Urine Protein Neg Urine Glucose (UA) 2+ Urine Ketones Negative Urine Blood Neg Urine Nitrate Negative Urine Bilirubin Neg Prot Sulfosalicyli c Acd Negative Urine Urobilinogen Norm Ur Leukocyte Verona ase Negative Urine RBC None Urine WBC 0-4 H Ur Squamous Epith Cells None Amorphous Sediment Not Reportable Urine Bacteria 1+ H Vitals: Last Vital Signs Temp 98.9 F 06/16/20 11:15 Pulse 117 H 06/16/20 11:15 Resp 17 06/16/20 11:15 BP 138/76 06/16/20 11:15 Pulse Ox 95 06/16/20 11:15 Discharge Plan Discharge Patient Disposition: Home Condition: Fair Prescriptions: New Combivent Respimat 20-100 mcg/actuation mist 1 puff inhalation Q6H Qty: 4 RF: 0 azithromycin 600 mg tablet 1,200 mg PO .week 30 Days Qty: 4 RF: 0 nicotine 14 mg/24 hr Patch 24 Hour 1 patch transdermal DAILY PRN (Reason: nicotine withdrawal) Qty: 28 RF: 0 acyclovir 400 mg Tablet 400 mg PO TID 9 Days Qty: 27 RF: 0 prednisone 10 mg tablet 10 mg PO DAILY Qty: 53 RF: 0 (DME) glucometer See Rx Instructions .Route .MEDSUPPLY Qty: 1 RF: 0 Novolog Flexpen U-100 Insulin 100 unit/mL (3 mL) insulin pen See Rx Instructions .ROUTE .COMPLEX Qty: 15 RF: 0 Continued sulfamethoxazole-trimethoprim [Bactrim] 400-80 mg tablet See Rx Instructions .ROUTE .COMPLEX RF: 0 montelukast [Singulair] 10 mg tablet 10 mg PO DAILY RF: 0 albuterol sulfate [ProAir HFA] 90 mcg/actuation HFA aerosol inhaler 2 puff INHALATION Q4H PRN (Reason: Shortness Of Breath) RF: 0 Biktarvy 50-200-25 mg tablet 1 tab PO DAILY RF: 0 Spiriva with HandiHaler 18 mcg Capsule, W/Inhalation Device 1 cap INHALATION DAILY RF: 0 budesonide-formoterol [Symbicort] 160-4.5 mcg/actuation Hfa Aerosol Inhaler 2 puff INHALATION BID RF: 0 ipratropium-albuterol 0.5 mg-3 mg(2.5 mg base)/3 mL Solution For Nebulization 3 ml INHALATION QID PRN (Reason: Shortness Of Breath) Qty: 180 RF: 0 Changed budesonide 0.5 mg/2 mL suspension for nebulization 0.5 mg inhalation BID PRN (Reason: wheezing) Qty: 0 RF: 0 Lasix 20 mg tablet 20 mg PO DAILY PRN (Reason: Edema) Qty: 7 RF: 0 Discontinued prednisone 10 mg tablet See Rx Instructions .ROUTE .COMPLEX RF: 0 Discharge Orders: Discharge Order (Routine); Ordered 06/16/20 Ordered By: Nba Wagner Referrals: Faiza Perry MD [Hospitalist] - 06/24/20 12:00 pm Yamilex Bearden MD [Physician] - 06/19/20 11:00 am Discharge Diet: Diabetic Discharge Activity: Oxygen as instructed and Cpap/Bipap as instructed Patient Instructions: Acyclovir (By mouth), Azithromycin (By mouth), Ipratropium/Albuterol (By breathing), Prednisolone (By mouth), Insulin Aspart, Recombinant (Injection), Insulin Lispro (Injection), Hypoglycemia, Diabetic Hypoglycemia (DC), What is Insulin (DC), Chronic Obstructive Pulmonary Disease (GEN), Pen Devices for Insulin Administration (DC) Activity Restrictions/Additional Instructions: -Please take steroid taper as prescribed -Please take azithromycin and Bactrim as prescribed -Please follow-up with Dr. Perry -Please follow-up with Dr. Bearden -Your blood sugars have been elevated, due to chronic steroid use -I have discharged you on a sliding scale -Inject insulin only if you were to eat -Check your blood sugar before your meal 3 times daily, breakfast, lunch, dinner -Based on sliding scale inject yourself with insulin -Hypoglycemia kills, so make sure you remember to always eat when taking insulin -Your insulin requirements might decrease as steroids are stopped -Glucometer testing kit supply provided -Below is insulin sliding scale: Fingerstick Blood Glucose Insulin Units 141-180 mg/dl 2 unit/SQ 181-220 mg/dl 4 units/SQ 221-260 mg/dl 6 units/SQ 261-300 mg/dl 8 units/SQ 301-350 mg/dl 10 units/SQ 351-400 mg/dl 12 units/SQ greater than 400 mg/dl 14 units/SQ -Record your blood sugars 3 times daily, if blood sugar greater than 500 call primary care -If blood sugar less than 60, drink or juice or eat a hard candy and go to the emergency room Discharge Attestations Time Spent in Discharge Care*: less than 30 min Quality Metrics Clinical Quality Measures During this hospital stay, did patient experience: None Coding Level of Care Code Acute Chg FW DC note Diagnoses Acute hypercapnic respiratory failure J96.02 Perianal rash R21 HIV (human immunodeficiency virus infection) Z21 HIV symptom status: asymptomatic Chronic respiratory failure with hypoxia and hypercapnia J96.11; J96.12 CHF (congestive heart failure) I50.33 Heart failure type: diastolic Heart failure chronicity: acute on chronic GERD (gastroesophageal reflux disease) K21.9 Esophagitis presence: esophagitis presence not specified Nicotine addiction F17.218 Nicotine product type: cigarettes Substance use status: other nicotine-induced disorder Edema of left lower extremity R60.0 Fever R50.9
--- NOTE | 2020-06-16 13:37 | PC.NURSE ---
IV catheter removed intact with patient tolerating well. patient discharged in stable condition at this time.
--- NOTE | 2020-06-16 13:51 | PC.RESP ---
Smoking Cessation and Pulmonary Rehab information sent to patient.
[2020-06-16 16:17] LABS: Estmated Average Glucose 117; Hemoglobin A1C 5.7 % (4.0-6.0)
[2020-06-18 04:58] LABS: HSV 1 DNA NOT DETECTED; HSV 2 DNA DETECTED
== END 2020-06-16 13:30 | disposition home or self-care (01) | DRG 189 ==
LOC: ER 19:04 → ICU 22:58 → MEDSURG 06-14 15:22
PROVIDERS: Internal Medicine; Admitting Provider Hospitalist; Emergency Provider Family Medicine; PCP Family Medicine; Visit Provider Family Medicine
DX: J96.22 Acute and chronic respiratory failure with hypercapnia (principal); I50.33 Acute on chronic diastolic (congestive) heart failure; J44.1 Chronic obstructive pulmonary disease with (acute) exacerbation; B20 Human immunodeficiency virus [HIV] disease; E46 Unspecified protein-calorie malnutrition; Z68.1 Body mass index [BMI] 19.9 or less, adult; F17.210 Nicotine dependence, cigarettes, uncomplicated; Z99.81 Dependence on supplemental oxygen; J96.11 Chronic respiratory failure with hypoxia; K21.9 Gastro-esophageal reflux disease without esophagitis; B00.9 Herpesviral infection, unspecified; Z79.899 Other long term (current) drug therapy; R73.9 Hyperglycemia, unspecified; Z79.51 Long term (current) use of inhaled steroids
CPT/HCPCS: 36415; 36416; 36600; 51702; 71045; 80048; 80053; 81001; 82803; 82962; 83036; 83605; 83735; 85025; 86140; 86592; 87040; 87491; 87530; 87591; 93971; 94640; 94660; 94664; 96365; 96372; 96375; 99285; J0456; J1650; J1815; J1940; J1956; J2060; J2920; J2930; J3475; J3535; J7050; J7626; J8499

== ENCOUNTER 2020-06-27 13:01 | Inpatient (IN) | payer MEDICAID, SELFPAY ==
[2020-06-27] VITALS (94 sets, daily range): BP systolic 93–145; BP diastolic 67–118; PULSE 114–144; RESP 16–39; TEMP 36.4–37.1; O2SAT 77–100; BMI 16.0
--- NOTE | 2020-06-27 13:17 | XRR_ITS ---
PROCEDURE INFORMATION: Exam: XR Chest Exam date and time: 06/27/2020 1:32 PM Age: 59 years old Clinical indication: Dyspnea; Prior surgery; Surgery type: Chest tube TECHNIQUE: Imaging protocol: XR of the chest Views: 1 view. COMPARISON: CR (CHEST, ) 06/15/2020 10:16 AM FINDINGS: Lungs: The lungs are hyperexpanded consistent with COPD. The lungs are otherwise clear Pleural spaces: Unremarkable. No pleural effusion. No pneumothorax. Heart/Mediastinum: Unremarkable. No cardiomegaly. Bones/joints: Unremarkable. XR/XR chest 1V portable [id number] IMPRESSION: Hyperexpanded lungs consistent with COPD Otherwise No acute findings.
--- NOTE | 2020-06-27 13:19 | ECG_ITS ---
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 Measurements Intervals [place] Rate: 123 P: 88 IA: 112 QRS: 91 QRSD: 81 T: 74 QT: 285 QTc: 409 Interpretive Statements SINUS TACHYCARDIA WITH SHORT IA INTERVAL BORDERLINE RIGHT AXIS DEVIATION [QRS AXIS > 90] Compared to ECG 06/06/2020 14:30:34 ST (T wave) deviation no longer present Electronically Signed On 06-27-2020 18:30:38 CDT by Mingo Donahue M.D. [id number]
--- NOTE | 2020-06-27 13:27 | W.ED.SOB ---
HPI - SOB/Dyspnea General: Chief Complaint: Shortness of Breath/Dyspnea Stated Complaint: SOB Time Seen by Provider: 06/27/20 13:07 History of Present Illness: HPI Narrative: The patient is a 59-year-old female history COPD, chronic respiratory failure, CHF, HIV. Her aide called an ambulance because she was feeling short of breath this morning. When EMS arrived she was off her oxygen and satting 74%. They gave her a breathing treatment and put her on oxygen and her sats were in the mid 80s. On arrival to the ED she is satting close to 100% and says she is breathing somewhat better. MD elicited complaint: shortness of breath and cough Pertinent past history: COPD and congestive heart failure Severity: moderate Exacerbating factors: exertion and coughing Relieving factors: nothing Known history of: COPD and congestive heart failure Associated symptoms: Reports cough; Deny abdominal pain, chest pain, dizziness, extremity pain, orthopnea, palpitations or polyuria Review of Systems General: Reports: 10 or more systems reviewed and unremarkable except in HPI and below Const: Denies: fatigue Eyes: Denies: change in vision, blurry vision or eye redness ENMT: Denies: throat pain, swelling of lips/tongue, ear or mastoid pain or nasal congestion Card: Reports: edema; Denies: chest pain, palpitations, irregular heart rhythm, dyspnea on exertion or orthopnea Resp: Reports: dyspnea, non-productive cough and wheezing; Denies: productive cough GI: Denies: abdominal pain, diarrhea or GI cramping : Denies: flank pain, difficulty voiding, urinary frequency or urinary urgency Musc: Denies: neck pain, back pain, extremity pain, joint pain, joint redness, limited range of motion or muscle weakness Skin/Breast: Denies: rash, pruritus, erythema, skin pain or skin tenderness Neuro: Denies: headache(s), numbness in extremities, weakness in extremities, sensory changes, difficulty walking, dizziness, confusion or Slurred speech present Psych: Denies: anxiety or depression Endo: Denies: polyuria All/Imm: Denies: urticaria, throat swelling or tongue swelling [facility] ED PFSH: Medical History CHF (congestive heart failure) Ejection fraction 57% on echocardiogram done 05/15/2020 Chronic respiratory failure with hypoxia and hypercapnia Secondary to COPD and ongoing smoking, on home oxygen and has either a CPAP for home ventilator with inconsistent use from history COPD (chronic obstructive pulmonary disease) Edema of left lower extremity Fever GERD (gastroesophageal reflux disease) HIV (human immunodeficiency virus infection) Absolute CD4 count in April 2020 looks to be less than 20. Home medication list indicates she is on Biktarvy and prophylactic Bactrim. Nicotine addiction Protein calorie malnutrition Surgical History H/O laparoscopy Family History Mother COPD (chronic obstructive pulmonary disease) Father CAD (coronary artery disease) Social History Smoking and tobacco status: current every day smoker cigarettes Years cigarettes smoked: 50 [ Other cigarette details: Hx of 1 PPD x 15 Years ] Second hand smoke exposure: Yes Alcohol intake: current Alcohol intake frequency: holidays/special occasions only Lives independently: Yes Household members: none Marital status: / Current occupational status: disabled History of recent travel: No Current gender identity: Female Physical Exam Const: COMMON NORMALS: patient oriented x3 and alert GENERAL APPEARANCE: well kempt ORIENTATION/CONSCIOUSNESS: Yes oriented to person, Yes oriented to place and Yes oriented to time HENMT: COMMON NORMALS: normocephalic, external ears normal and Normal external nose present HEAD & SCALP: normal to inspection and normocephalic NOSE: Normal external nose present EXTERNAL EAR: Yes external ears normal MOUTH: Normal oral and palatal mucosa present THROAT: posterior oropharynx normal Eye: COMMON NORMALS: Equal, round and reactive pupils present and EOMs intact bilaterally GENERAL EYE: appearance normal, both eyes and all related structures PUPIL: Yes Equal, round and reactive pupils present Neck/C-Spine: COMMON NORMALS: full ROM, no lymphadenopathy, no meningeal signs and no JVD GENERAL: Yes normal visual inspection Lymph: LYMPHATIC: no lymphadenopathy noted Chest: COMMONS NORMALS: normal inspection of the chest and normal palpation of entire chest wall Resp: COMMON NORMALS: normal respiratory effort and No retractions EFFORT & INSPECTION: Yes tachypneic, Yes pursed lip breathing and Yes Actively coughing AUSCULTATION: wheezes expiratory wheezes and diminished lung sounds Cardio: COMMON NORMALS: no JVD, regular rate, regular rhythm, S1 normal heart sound present, S2 normal heart sound present and Peripheral pulses 2+ throughout RATE: regular rate RHYTHM: regular rhythm HEART SOUNDS: S1 normal heart sound present and S2 normal heart sound present PERIPHERAL PULSES: Peripheral pulses 2+ throughout GI: COMMON NORMALS: Normal to inspection, nondistended, normoactive bowel sounds present, Soft to palpation, non-tender and no masses INSPECTION: Yes normal to inspection PALPATION: Yes Soft to palpation : COMMON NORMALS: Yes no CVA tenderness BLADDER/KIDNEY EXAM: Yes no CVA tenderness Back/Pelvis: COMMON NORMALS: no CVA tenderness, thoracic and lumbar spine normal to inspection, no thoracic nor lumbar tenderness and thoraco-lumbar ROM normal Extremity: COMMON NORMALS: normal to inspection, full ROM, capillary refill normal, no joint enlargement and no pedal edema GENERAL: Yes normal exam except as noted Neuro: COMMON NORMALS: patient oriented x3, CN's II-XII intact bilaterally, moves all extremities, no focal motor deficits, no sensory deficits noted and gait normal SENSORIUM/ORIENTATION: Yes alert, Yes oriented to person, Yes oriented to place and Yes oriented to time MENINGEAL SIGNS: Yes no meningeal signs Psych: COMMON NORMALS: mental status grossly normal, Normal thought process present, cooperative, normal affect and speech normal APPEARANCE: Yes well kempt ATTITUDE: Yes calm SPEECH: Yes normal speech THOUGHT PROCESS: Normal thought process present Skin: COMMON NORMALS: no rashes or lesions noted GENERAL SKIN EXAM: no rashes or lesions noted OTHER: 2+ pitting edema bilateral lower extremities Course Vital Signs: Vital signs: Vital Signs Temperature 98.7 F 06/27/20 13:29 Pulse Rate 127 H 06/27/20 17:16 Respiratory Rate 27 H 06/27/20 17:16 Blood Pressure 119/87 06/27/20 17:16 Pulse Oximetry 96 06/27/20 17:16 MDM - SOB/Dyspnea MDM Narrative: Medical decision making narrative: The patient was breathing reasonably well on arrival to the ER however her CO2 was significantly elevated at 110 with a pH of 7.27. This is consistent with her chronic respiratory failure and she is in acute respiratory failure causing acute respiratory acidosis. She was placed on BiPAP and tolerated it well. Admitted to the ICU. Dr. Bill accepts for her care. She also had swelling of her extremities and an elevated BN P. She was given 20 of Lasix IV. Lab Data: Labs: Lab Results 06/27/20 06/27/20 06/27/20 Range/Units 13:44 13:48 14:10 WBC 8.0 (4.0-10.0) 10^3/ uL RBC 4.41 (4.1-5.3) 10^6/u L Hgb 13.0 (11.5-15.3) g/dL Hct 41.5 (37.0-47.0) % MCV 94.1 (81-99) fL MCH 29.5 (28.0-34.0) pg MCHC 31.3 (30.0-36.0) g/dL RDW 12.8 (12.1-15.1) % Plt Count 150 (130-400) 10^3/c mm MPV 10.5 H (7.4-10.4) fL Neut % (Auto) 89.4 % Lymph % (Auto) 6.0 % [place] % (Auto) 3.5 % Eos % (Auto) 0.2 % Baso % (Auto) 0.4 % Neut # (Auto) 7.19 (1.8-7.7) 10^3/u L Lymph # (Auto) 0.5 L (0.8-4.8) 10^3/u L [place] # (Auto) 0.3 (0.2-0.9) 10^3/u L Eos # (Auto) 0.0 (0.0-0.8) 10^3/u L Baso # (Auto) 0.0 (0.0-0.1) 10^3/u L Nucleated RBC % (a uto) 0 % Nucleated RBCs # 0.0 /100WBC D-Dimer (0-0.59) ug/mIFE U Specimen Type Arterial Sample Site Brachial, left ABG pH 7.27 L (7.35-7.45) ABG pCO2 110.0 H* (35-45) mmHg ABG pO2 65.6 L (80.0-100.0) mmH g ABG HCO3 50.4 H (22-26) mmol/L ABG Base Excess 17.8 H (-2.0-2.0) mmol/ L Adrian Test N/a Hematocrit 41.6 (37-47) % Hgb O2 Saturation 91.3 L (95-100) % Carboxyhemoglobin 1.4 (0.4-20.1) %THgb Methemoglobin 0.7 (0.4-1.5) % Total Hemoglobin 13.6 (12-16) g/dL O2 Delivery Device Nc O2 Liters/Min 2.0 % FiO2 28.0 % Alarm Installer ID Amh Sodium (136-145) mmol/L Potassium (3.5-5.1) mmol/L Chloride (98-107) mmol/L Carbon Dioxide (22-29) mmol/L Anion Gap (5-19) BUN (6-20) mg/dL Creatinine (0.5-0.9) mg/dL GFR Calculation (90-130) mL/min Glucose (65-115) mg/dL Calculated Osmolal ity (285-295) mOsm/k g Lactate (0.5-2.2) mmol/L Calcium (8.5-10.5) mg/dL Total Bilirubin (0.15-1.2) mg/dL AST (0-32) U/L ALT (0-33) U/L Alkaline Phosphata se (35-105) IU/L Creatine Kinase (26-192) U/L Troponin T Baselin e (0-10) ng/L NT-Pro-B Natriuret Pep (0-125) pg/mL Total Protein (6.6-8.7) g/dL Albumin (3.5-5.2) g/dL Globulin (1.3-4.6) g/dL Urine Color Yellow (Yellow) Urine Appearance Clear (CLEAR) Urine pH 5 (5-7) Ur Specific Gravit y 1.030 (1.005-1.030) Urine Protein Neg (Negative) Urine Glucose (UA) Trace H (Normal) Urine Ketones 1+ H (Negative) Urine Blood Neg (Negative) Urine Nitrate Negative (Negative) Urine Bilirubin 1+ H (Negative) Urine Urobilinogen Norm (Negative) mg/dL Ur Leukocyte [place] ase Negative (Negative) 06/27/20 06/27/20 06/27/20 Range/Units 14:10 14:10 14:10 WBC (4.0-10.0) 10^3/ uL RBC (4.1-5.3) 10^6/u L Hgb (11.5-15.3) g/dL Hct (37.0-47.0) % MCV (81-99) fL MCH (28.0-34.0) pg MCHC (30.0-36.0) g/dL RDW (12.1-15.1) % Plt Count (130-400) 10^3/c mm MPV (7.4-10.4) fL Neut % (Auto) % Lymph % (Auto) % [place] % (Auto) % Eos % (Auto) % Baso % (Auto) % Neut # (Auto) (1.8-7.7) 10^3/u L Lymph # (Auto) (0.8-4.8) 10^3/u L [place] # (Auto) (0.2-0.9) 10^3/u L Eos # (Auto) (0.0-0.8) 10^3/u L Baso # (Auto) (0.0-0.1) 10^3/u L Nucleated RBC % (a uto) % Nucleated RBCs # /100WBC D-Dimer <= 0.27 (0-0.59) ug/mIFE U Specimen Type Sample Site ABG pH (7.35-7.45) ABG pCO2 (35-45) mmHg ABG pO2 (80.0-100.0) mmH g ABG HCO3 (22-26) mmol/L ABG Base Excess (-2.0-2.0) mmol/ L Adrian Test Hematocrit (37-47) % Hgb O2 Saturation (95-100) % Carboxyhemoglobin (0.4-20.1) %THgb Methemoglobin (0.4-1.5) % Total Hemoglobin (12-16) g/dL O2 Delivery Device O2 Liters/Min % FiO2 % Alarm Installer ID Sodium 130 L (136-145) mmol/L Potassium 5.0 (3.5-5.1) mmol/L Chloride 83 L (98-107) mmol/L Carbon Dioxide 39 H (22-29) mmol/L Anion Gap 13.0 (5-19) BUN 24 H (6-20) mg/dL Creatinine 0.4 L (0.5-0.9) mg/dL GFR Calculation 163.9 H (90-130) mL/min Glucose 338 H (65-115) mg/dL Calculated Osmolal ity 287 (285-295) mOsm/k g Lactate 0.8 (0.5-2.2) mmol/L Calcium 8.6 (8.5-10.5) mg/dL Total Bilirubin 0.8 (0.15-1.2) mg/dL AST 30 (0-32) U/L ALT 32 (0-33) U/L Alkaline Phosphata se 57 (35-105) IU/L Creatine Kinase 57 (26-192) U/L Troponin T Baselin e (0-10) ng/L NT-Pro-B Natriuret Pep 1092 H (0-125) pg/mL Total Protein 5.2 L (6.6-8.7) g/dL Albumin 3.0 L (3.5-5.2) g/dL Globulin 2.2 (1.3-4.6) g/dL Urine Color (Yellow) Urine Appearance (CLEAR) Urine pH (5-7) Ur Specific Gravit y (1.005-1.030) Urine Protein (Negative) Urine Glucose (UA) (Normal) Urine Ketones (Negative) Urine Blood (Negative) Urine Nitrate (Negative) Urine Bilirubin (Negative) Urine Urobilinogen (Negative) mg/dL Ur Leukocyte [place] ase (Negative) 06/27/20 Range/Units 14:10 WBC (4.0-10.0) 10^3/ uL RBC (4.1-5.3) 10^6/u L Hgb (11.5-15.3) g/dL Hct (37.0-47.0) % MCV (81-99) fL MCH (28.0-34.0) pg MCHC (30.0-36.0) g/dL RDW (12.1-15.1) % Plt Count (130-400) 10^3/c mm MPV (7.4-10.4) fL Neut % (Auto) % Lymph % (Auto) % [place] % (Auto) % Eos % (Auto) % Baso % (Auto) % Neut # (Auto) (1.8-7.7) 10^3/u L Lymph # (Auto) (0.8-4.8) 10^3/u L [place] # (Auto) (0.2-0.9) 10^3/u L Eos # (Auto) (0.0-0.8) 10^3/u L Baso # (Auto) (0.0-0.1) 10^3/u L Nucleated RBC % (a uto) % Nucleated RBCs # /100WBC D-Dimer (0-0.59) ug/mIFE U Specimen Type Sample Site ABG pH (7.35-7.45) ABG pCO2 (35-45) mmHg ABG pO2 (80.0-100.0) mmH g ABG HCO3 (22-26) mmol/L ABG Base Excess (-2.0-2.0) mmol/ L Adrian Test Hematocrit (37-47) % Hgb O2 Saturation (95-100) % Carboxyhemoglobin (0.4-20.1) %THgb Methemoglobin (0.4-1.5) % Total Hemoglobin (12-16) g/dL O2 Delivery Device O2 Liters/Min % FiO2 % Alarm Installer ID Sodium (136-145) mmol/L Potassium (3.5-5.1) mmol/L Chloride (98-107) mmol/L Carbon Dioxide (22-29) mmol/L Anion Gap (5-19) BUN (6-20) mg/dL Creatinine (0.5-0.9) mg/dL GFR Calculation (90-130) mL/min Glucose (65-115) mg/dL Calculated Osmolal ity (285-295) mOsm/k g Lactate (0.5-2.2) mmol/L Calcium (8.5-10.5) mg/dL Total Bilirubin (0.15-1.2) mg/dL AST (0-32) U/L ALT (0-33) U/L Alkaline Phosphata se (35-105) IU/L Creatine Kinase (26-192) U/L Troponin T Baselin e 57 H (0-10) ng/L NT-Pro-B Natriuret Pep (0-125) pg/mL Total Protein (6.6-8.7) g/dL Albumin (3.5-5.2) g/dL Globulin (1.3-4.6) g/dL Urine Color (Yellow) Urine Appearance (CLEAR) Urine pH (5-7) Ur Specific Gravit y (1.005-1.030) Urine Protein (Negative) Urine Glucose (UA) (Normal) Urine Ketones (Negative) Urine Blood (Negative) Urine Nitrate (Negative) Urine Bilirubin (Negative) Urine Urobilinogen (Negative) mg/dL Ur Leukocyte [place] ase (Negative) Critical Care Time Critical Care Time: Critical Care Time: Yes Total Critical Care Time: 60 Attestation: Acute on chronic respiratory failure requiring BiPAP, ABG, admission to the ICU. Discharge Plan Discharge Patient Disposition: Admitted As Inpatient Admit Provider: Francisco Smith Clinical Impression: Acute hypercapnic respiratory failure, Congestive heart failure Condition: Stable Coding Level of Care Code ED [employer] for Chg Fwd Exam Comprehensive
[2020-06-27] MEDS: ipratropium-albuterol 3 mL Neb INHALATION ×3 (13:36→23:24)
[2020-06-27 13:55] LABS: ABG PH Result 7.27 (7.35-7.45); Arterial Blood Gas Hematocrit 41.6 % (37-47); Base Excess ABG 17.8 mmol/L (-2.0-2.0); Blood Gas Operator Identificat AMH; Blood Gas Sample Site Brachial, left; Blood Gas Sample Type Arterial; Carboxyhemoglobin 1.4 %THgb (0.4-20.1); HCO3 ABG 50.4 mmol/L (22-26); HGB O2 Sat 91.3 % (95-100); Methemoglobin 0.7 % (0.4-1.5); Oxygen Device NC; PO2 ABG 65.6 mmHg (80.0-100.0); Total Hemoglobin 13.6 g/dL (12-16)
[2020-06-27 14:06] LABS: Add Urine Microscopic? NO
[2020-06-27] MEDS: FUROsemide 10 mg/mL SDV 2mL 20 MG IVP (14:08)
[2020-06-27 14:09] LABS: Bilirubin Urine 1+ (Negative); Blood Urine Neg (Negative); Glucose Urine UA Trace (Normal); Ketones Urine 1+ (Negative); Leukocyte Esterase Urine Negative (Negative); Nitrate Urine Negative (Negative); Protein Urine Neg (Negative); Urine Appearance Clear (CLEAR); Urine Color Yellow (Yellow); Urobilinogen Urine Norm (Negative); pH Urine 5 (5-7)
[2020-06-27 14:28] LABS: Basophils % 0.4 %; Eosinophils % 0.2 %; Hematocrit 41.5 % (37.0-47.0); Lymphocytes # 0.5 10^3/uL (0.8-4.8); Mean Corpuscular HGB Conc 31.3 g/dL (30.0-36.0); Mean Corpuscular Hemoglobin 29.5 pg (28.0-34.0); Mean Corpuscular Volume 94.1 fL (81-99); Mean Platelet Volume 10.5 fL (7.4-10.4); Monocytes # 0.3 10^3/uL (0.2-0.9); Monocytes % 3.5 %; Neutrophils # 7.19 10^3/uL (1.8-7.7); Neutrophils % 89.4 %; Nucleated Red Blood Cells % 0 %; Platelet Count 150 10^3/cmm (130-400); Red Blood Count 4.41 10^6/uL (4.1-5.3); Red Cell Distribution Width 12.8 % (12.1-15.1)
[2020-06-27 14:36] LABS: Lactate (Lactic Acid level) 0.8 mmol/L (0.5-2.2)
[2020-06-27 14:38] LABS: Troponin(5th) Baseline 57 ng/L (0-10)
[2020-06-27 14:39] LABS: D Dimer <= 0.27 ug/mIFEU (0-0.59)
[2020-06-27 15:10] LABS: Alanine Aminotransferase 32 U/L (0-33); Alkaline Phosphatase 57 IU/L (35-105); Blood Urea Nitrogen 24 mg/dL (6-20); Calcium 8.6 mg/dL (8.5-10.5); Carbon Dioxide 39 mmol/L (22-29); Chloride 83 mmol/L (98-107); Creatine Phosphokinase 57 U/L (26-192); Globulin 2.2 g/dL (1.3-4.6); Glomerular Filtration Rate 163.9 mL/min (90-130); Glucose 338 mg/dL (65-115); NT Pro B Type Natriuretic Pept 1092 pg/mL (0-125); Osmolality Calculated 287 mOsm/kg (285-295); Sodium 130 mmol/L (136-145); Total Bilirubin 0.8 mg/dL (0.15-1.2); Total Protein 5.2 g/dL (6.6-8.7)
[2020-06-27 15:11] LABS: Aspartate Amino Transferase 30 U/L (0-32)
--- NOTE | 2020-06-27 15:19 | ECG_ITS ---
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 Measurements Intervals [place] Rate: 131 P: 84 WI: 166 QRS: 87 QRSD: 72 T: 76 QT: 279 QTc: 412 Interpretive Statements SINUS TACHYCARDIA Compared to ECG 06/27/2020 14:35:26 Short [place] interval no longer present Electronically Signed On 06-27-2020 18:33:41 CDT by Mingo Donahue M.D. [id number]
--- NOTE | 2020-06-27 18:07 | P.HP_ITS ---
Providers/Chief Complaint Admitting Physician: Francisco Smith Primary Care Provider: Ta Salas MD Chief Complaint: SOB History of Present Illness Adore Broussard is a 59 year old female with past medical history of COPD, CHF, chronic respiratory failure, HIV, frequent hospitalizations for worsening respiratory failure who was brought by EMS to emergency room due to worsening shortness of breath. Currently the patient is on BiPAP. She is partly disoriented and confused. No acute distress unable to provide meaningful history. The information is collected from ER physician and the chart. The patient was in significant respiratory distress. ABGs in the emergency room revealed acute hypoxic and hypercapnic changes. pH of 7.27. Was started on BiPAP. Was given Solu-Medrol and Lasix. BNP is elevated. Chest x-ray did not reveal infiltrates. Review of Systems General: Reports: ROS unobtainable due to medical condition and ROS unobtainable due to mental status Medications/Allergies Home Medications Medication Instructions Recorded Confirmed Last Taken Type albuterol sulfate 90 mcg/actuation 2 puff INHALATION Q6H PRN 10/03/19 06/27/20 Unknown History aerosol inhaler montelukast 10 mg tablet 10 mg PO DAILY 10/03/19 06/27/20 04/22/20 History sulfamethoxazole 400 See Rx Instructions .ROUTE 10/03/19 06/27/20 04/21/20 History mg-trimethoprim 80 mg tablet .COMPLEX tab Biktarvy 1 tab PO DAILY 04/23/20 06/27/20 04/23/20 History Spiriva with HandiHaler 1 cap INHALATION DAILY 05/05/20 06/27/20 Unknown History budesonide-formoterol [Symbicort] 2 puff INHALATION BID 05/05/20 06/27/20 Unknown History ipratropium-albuterol 3 ml INHALATION QID PRN #180 ml 05/16/20 06/27/20 Unknown Rx ipratropium-albuterol [Combivent 1 puff INHALATION Q6H #4 g 06/14/20 06/27/20 U nknown Rx Respimat] furosemide [Lasix] 20 mg PO DAILY PRN #7 tab 06/16/20 06/27/20 Unknown Rx glucometer #1 ea 06/16/20 06/27/20 Unknown Rx insulin aspart U-100 [Novolog See Rx Instructions .ROUTE 06/16/20 06/27/20 Unknown Rx Flexpen U-100 Insulin] .COMPLEX #15 ml acyclovir 400 mg PO TID 06/27/20 06/27/20 Unknown History aspirin [Aspir-81] 81 mg PO DAILY 06/27/20 06/27/20 Unknown History atorvastatin 40 mg PO BEDTIME 06/27/20 06/27/20 Unknown History carvedilol 3.125 mg PO BID 06/27/20 06/27/20 Unknown History pantoprazole 40 mg IV DAILY 06/27/20 06/27/20 Unknown History prednisone 5 mg PO DAILY 06/27/20 06/27/20 Unknown History Allergies Allergy/AdvReac Type Severity Reaction Status Date / Time Penicillins Allergy ALGY-Difficulty Verified 06/27/20 13:06 Breathing phenobarbital Allergy ALGY-Hives Verified 06/27/20 13:06 Tetanus Vaccines and Toxoid Allergy ALGY-Hives Verified 06/27/20 13:06 PFSH Acute PFSH: Medical History CHF (congestive heart failure) Ejection fraction 57% on echocardiogram done 05/15/2020 Chronic respiratory failure with hypoxia and hypercapnia Secondary to COPD and ongoing smoking, on home oxygen and has either a CPAP for home ventilator with inconsistent use from history COPD (chronic obstructive pulmonary disease) Edema of left lower extremity Fever GERD (gastroesophageal reflux disease) HIV (human immunodeficiency virus infection) Absolute CD4 count in April 2020 looks to be less than 20. Home medication list indicates she is on Biktarvy and prophylactic Bactrim. Nicotine addiction Protein calorie malnutrition Surgical History H/O laparoscopy Family History Mother COPD (chronic obstructive pulmonary disease) Father CAD (coronary artery disease) Social History Smoking and tobacco status: current every day smoker cigarettes Years cigarettes smoked: 50 [ Other cigarette details: Hx of 1 PPD x 15 Years ] Second hand smoke exposure: Yes Alcohol intake: current Alcohol intake frequency: holidays/special occasions only Lives independently: Yes Household members: none Marital status: / Current occupational status: disabled History of recent travel: No Current gender identity: Female Vitals/I&O/Wt Last Vital Signs Temp 98.7 F 06/27/20 13:29 Pulse 127 H 06/27/20 17:16 Resp 27 H 06/27/20 17:16 BP 119/87 06/27/20 17:16 Pulse Ox 96 06/27/20 17:16 Weight last 48 hrs Weight 38.555 kg Physical Exam Narrative: EXAM NARRATIVE: The patient is mostly disoriented. With BiPAP. Tachypnea is present. Following instructions. Responses are mostly adequate. Skin is warm and dry Moist mucous membranes Eyes PERRL Neck supple. No JVD Lungs decreased breath sounds and mild lateral diffuse wheezes. Tachypnea. Heart S1, S2, regular tachycardia Abdomen soft, nontender, bowel sounds are present Extremities bilateral pedal edema. No cyanosis or calf tenderness bilaterally Moves all extremities. Data : 06/27/20 14:10 06/27/20 14:10 Other Labs: Laboratory Results WBC 8.0 10^3/uL (4.0-10.0) 06/27/20 14:10 RBC 4.41 10^6/uL (4.1-5.3) 06/27/20 14:10 Hgb 13.0 g/dL (11.5-15.3) 06/27/20 14:10 Hct 41.5 % (37.0-47.0) 06/27/20 14:10 MCV 94.1 fL (81-99) 06/27/20 14:10 MCH 29.5 pg (28.0-34.0) 06/27/20 14:10 MCHC 31.3 g/dL (30.0-36.0) 06/27/20 14:10 RDW 12.8 % (12.1-15.1) 06/27/20 14:10 Plt Count 150 10^3/cmm (130-400) 06/27/20 14:10 MPV 10.5 fL (7.4-10.4) H 06/27/20 14:10 Neut % (Auto) 89.4 % 06/27/20 14:10 Lymph % (Auto) 6.0 % 06/27/20 14:10 [place] % (Auto) 3.5 % 06/27/20 14:10 Eos % (Auto) 0.2 % 06/27/20 14:10 Baso % (Auto) 0.4 % 06/27/20 14:10 Neut # (Auto) 7.19 10^3/uL (1.8-7.7) 06/27/20 14:10 Lymph # (Auto) 0.5 10^3/uL (0.8-4.8) L 06/27/20 14:10 [place] # (Auto) 0.3 10^3/uL (0.2-0.9) 06/27/20 14:10 Eos # (Auto) 0.0 10^3/uL (0.0-0.8) 06/27/20 14:10 Baso # (Auto) 0.0 10^3/uL (0.0-0.1) 06/27/20 14:10 Nucleated RBC % (auto) 0 % 06/27/20 14:10 Nucleated RBCs # 0.0 /100WBC 06/27/20 14:10 D-Dimer <= 0.27 ug/mIFEU (0-0.59) 06/27/20 14:10 Specimen Type Arterial 06/27/20 13:44 Sample Site Brachial, left 06/27/20 13:44 ABG pH 7.27 (7.35-7.45) L 06/27/20 13:44 ABG pCO2 110.0 mmHg (35-45) H* 06/27/20 13:44 ABG pO2 65.6 mmHg (80.0-100.0) L 06/27/20 13:44 ABG HCO3 50.4 mmol/L (22-26) H 06/27/20 13:44 ABG Base Excess 17.8 mmol/L (-2.0-2.0) H 06/27/20 13:44 Adrian Test N/a 06/27/20 13:44 Hematocrit 41.6 % (37-47) 06/27/20 13:44 Hgb O2 Saturation 91.3 % (95-100) L 06/27/20 13:44 Carboxyhemoglobin 1.4 %THgb (0.4-20.1) 06/27/20 13:44 Methemoglobin 0.7 % (0.4-1.5) 06/27/20 13:44 Total Hemoglobin 13.6 g/dL (12-16) 06/27/20 13:44 O2 Delivery Device Nc 06/27/20 13:44 O2 Liters/Min 2.0 % 06/27/20 13:44 FiO2 28.0 % 06/27/20 13:44 Veneer Repairer Machine ID Amh 06/27/20 13:44 Sodium 130 mmol/L (136-145) L 06/27/20 14:10 Potassium 5.0 mmol/L (3.5-5.1) 06/27/20 14:10 Chloride 83 mmol/L (98-107) L 06/27/20 14:10 Carbon Dioxide 39 mmol/L (22-29) H 06/27/20 14:10 Anion Gap 13.0 (5-19) 06/27/20 14:10 BUN 24 mg/dL (6-20) H 06/27/20 14:10 Creatinine 0.4 mg/dL (0.5-0.9) L 06/27/20 14:10 GFR Calculation 163.9 mL/min (90-130) H 06/27/20 14:10 Glucose 338 mg/dL (65-115) H 06/27/20 14:10 Calculated Osmolality 287 mOsm/kg (285-295) 06/27/20 14:10 Lactate 0.8 mmol/L (0.5-2.2) 06/27/20 14:10 Calcium 8.6 mg/dL (8.5-10.5) 06/27/20 14:10 Total Bilirubin 0.8 mg/dL (0.15-1.2) 06/27/20 14:10 AST 30 U/L (0-32) 06/27/20 14:10 ALT 32 U/L (0-33) 06/27/20 14:10 Alkaline Phosphatase 57 IU/L (35-105) 06/27/20 14:10 Creatine Kinase 57 U/L (26-192) 06/27/20 14:10 Troponin T Baseline 57 ng/L (0-10) H 06/27/20 14:10 NT-Pro-B Natriuret Pep 1092 pg/mL (0-125) H 06/27/20 14:10 Total Protein 5.2 g/dL (6.6-8.7) L 06/27/20 14:10 Albumin 3.0 g/dL (3.5-5.2) L 06/27/20 14:10 Globulin 2.2 g/dL (1.3-4.6) 06/27/20 14:10 Urine Color Yellow (Yellow) 06/27/20 13:48 Urine Appearance Clear (CLEAR) 06/27/20 13:48 Urine pH 5 (5-7) 06/27/20 13:48 Ur Specific Novi 1.030 (1.005-1.030) 06/27/20 13:48 Urine Protein Neg (Negative) 06/27/20 13:48 Urine Glucose (UA) Trace (Normal) H 06/27/20 13:48 Urine Ketones 1+ (Negative) H 06/27/20 13:48 Urine Blood Neg (Negative) 06/27/20 13:48 Urine Nitrate Negative (Negative) 06/27/20 13:48 Urine Bilirubin 1+ (Negative) H 06/27/20 13:48 Urine Urobilinogen Norm mg/dL (Negative) 06/27/20 13:48 Ur Leukocyte Esterase Negative (Negative) 06/27/20 13:48 Impressions Chest X-Ray 06/27/20 13:17 IMPRESSION: Hyperexpanded lungs consistent with COPD Otherwise No acute findings. A&P Additional A&P Information 59-year-old female with past medical history of COPD, CHF, HIV, tobacco abuse, chronic respiratory failure and frequent hospitalizations for worsening respiratory failure who is presenting with severe respiratory distress and confusion. Acute hypoxic and hypercapnic respiratory failure on top of chronic. Most likely this is COPD acute exacerbation. Probably due to noncompliance and continued nicotine addiction. Going to ICU. We will continue BiPAP. We will recheck ABGs and correct BiPAP settings if needed. We will continue aggressive systemic steroids, respiratory treatments. Will order Levaquin for possible bronchitis. There is component of CHF as well. There is significant swelling and BNP is elevated. Will order another dose of Lasix and continue it daily. CHF. As above. Hyperglycemia. Last A1c was within normal range. Probably hyperglycemia is mainly due to steroids. Will order insulin sliding scale. Hyponatremia probably secondary to lung disease. We will continue monitoring. Probably it will improve with diuresis. Tachycardia, sinus. This is due to her respiratory failure. History of hypertension. We will continue her home medications. History of HIV. We will continue her home medications. DVT prophylaxis. Lovenox. CODE STATUS. The patient is okay with CPR. However she is very clear that she does not want to be intubated. She is waving with her hand no when intubation is mentioned. I believe she understands what I mean. I tried to call to contact listed in the chart. I called to the number and asked person called Pric[employer]. A mail person picked up the phone. I asked to speak with Pricilla. He did not answer anything. I waited for about 5 minutes nobody approached to the phone. Attestations Medical Necessity Statement*: Patient is in critical condition in ICU with acute severe respiratory failure requiring BiPAP. I expect that the patient will spend more than 2 midnights in the hospital. Critical care time spent on this encounter is 60 minutes. Coding Level of Care Code Acute Cnc Wood Lathe Operator for Paris Dickerson
--- NOTE | 2020-06-27 18:17 | PC.NURSE ---
1730 recd. from e.r. alert, disoriented, having a hard time breathing. resp. here and to bipp with 30% fio2.
[2020-06-27 19:22] LABS: ABG PH Result 7.48 (7.35-7.45); Alveolar-Arterial Oxygen Gradi 7.1 mmHg (5-10); Arterial Blood Gas Hematocrit 40.5 % (37-47); Base Excess ABG 24.4 mmol/L (-2.0-2.0); Blood Gas Sample Site Brachial, right; Blood Gas Sample Type Arterial; Carboxyhemoglobin 1.3 %THgb (0.4-20.1); HCO3 ABG 52.5 mmol/L (22-26); HGB O2 Sat 95.8 % (95-100); Ionized Calcium Level - ABG 1.1 mmol/L (1.1-1.4); Methemoglobin 0.7 % (0.4-1.5); Oxygen Device BIPAP; Oxygen Saturation ABG 97.9; PO2 ABG 77.9 mmHg (80.0-100.0); Potassium Level - ABG 4.8 mmol/L (3.5-5.0); Total Hemoglobin 13.2 g/dL (12-16)
[2020-06-27 19:30] LABS: Glucose Point of Care 180 mg/dL (70-110)
--- NOTE | 2020-06-27 19:47 | PC.NURSE ---
spoke with family. jerald and kristi are niece's. hiv + home care. hermelindo care for 02. [facility] nurse, bro khalil. son states he talks with mom alvin and she does not want intubation. also states it is ok for nieces to make decisions in her care since they live here. he is in [place]. nieces state she sees a dr. hanley in [place] via phone, sees dr. hinds here. they state she adjusts her oxygen as she likes
[2020-06-27] MEDS: levofloxacin-dextrose 5 % 750 MG/150 ML PREMIX 100 MG IV (20:21)
[2020-06-27] MEDS: FUROsemide 10 mg/mL SDV 4mL 40 MG IVP (20:21)
[2020-06-27] MEDS: enoxaparin 40 mg/0.4 mL Syringe SUBCUT (20:22)
[2020-06-27] MEDS: famotidine 20 mg/2 mL INJ IVP (20:23)
[2020-06-27] MEDS: atorvastatin 40 mg Tablet PO (21:06)
[2020-06-27] MEDS: sulfamethoxazole-trimeth DS 160-800 mg Tablet 1 TAB PO (21:06)
[2020-06-27] MEDS: acyclovir 400 mg Tablet PO (21:06)
[2020-06-27] MEDS: sodium chloride 0.9% 500 ML IV (21:32)
[2020-06-27] MEDS: dexmedetomidine 400 MCG in sodium chloride 0.9% (100 ml) 100 ML IV (22:45)
[2020-06-27 23:33] LABS: Glucose Point of Care 188 mg/dL (70-110)
[2020-06-28] VITALS (95 sets, daily range): BP systolic 77–147; BP diastolic 51–89; PULSE 97–146; RESP 14–38; TEMP 36.6–37.9; O2SAT 90–100
--- NOTE | 2020-06-28 01:09 | PC.NURSE ---
Increased agitation. Pt verbally abusive to staff and screaming profanity. Pt encouraged to wear bipap. Pt reoriented to surroundings. Will continue to monitor.
--- NOTE | 2020-06-28 01:31 | PC.NURSE ---
Increased agitation and aggression. called. Thad notified of pt refusing to wear bipap and change in pt condition and 25 mg seroquil ordered PO. Will continue to monitor.
[2020-06-28] MEDS: quetiapine 25 mg Tablet PO ×2 (01:53→21:49)
[2020-06-28] MEDS: ipratropium-albuterol 3 mL Neb INHALATION ×5 (03:14→19:39)
[2020-06-28 05:42] LABS: Glucose Point of Care 183 mg/dL (70-110)
[2020-06-28] MEDS: montelukast sodium 10 mg Tablet PO (08:20)
[2020-06-28] MEDS: acyclovir 400 mg Tablet PO ×3 (08:20→21:48)
[2020-06-28] MEDS: famotidine 20 mg/2 mL INJ IVP ×2 (08:21→21:46)
[2020-06-28] MEDS: aspirin 81 mg EC Tablet PO (08:21)
[2020-06-28] MEDS: carvedilol 3.125 mg Tablet PO ×2 (08:21→21:48)
--- NOTE | 2020-06-28 11:30 | P.PN_ITS ---
Subjective Subjective: Interval history: The patient reports feeling much better today. Denies any active complaints. No chest pain or shortness of breath. No significant cough. No nausea or vomiting. Hungry. Medications: Reviewed: Yes Medication Review Details: Generic Name Dose Route Start Last Admin Trade Name Freq PRN Reason Stop Dose Admin Acyclovir 400 mg 06/27/20 21:00 06/28/20 08:20 Acyclovir 400 Mg Tablet PO 400 mg TID RADHA Administration Albuterol/Ipratrop ium 3 ml 06/27/20 20:00 06/28/20 11:05 Ipratropium-Albu terol 3 Ml Neb INHALATION 3 ml Q4H.RESPIRATORY S CH Administration Aspirin 81 mg 06/28/20 09:00 06/28/20 08:21 Aspirin 81 Mg Ec Tablet PO 81 mg DAILY RADHA Administration Atorvastatin Calci um 40 mg 06/27/20 21:00 06/27/20 21:06 Atorvastatin 40 Mg Tablet PO 40 mg BEDTIME RADHA Administration Carvedilol 3.125 mg 06/28/20 09:00 06/28/20 08:21 Carvedilol 3.125 Mg Tablet PO 3.125 mg BID@0900,2100 RADHA Administration Enoxaparin Sodium 40 mg 06/27/20 20:00 06/27/20 20:22 Enoxaparin 40 Mg /0.4 Ml Syringe SUBCUT 40 mg Q24H RADHA Administration Famotidine 20 mg 06/27/20 20:00 06/28/20 08:21 Famotidine 20 Mg /2 Ml Inj IVP 20 mg Q12H RADHA Administration Furosemide 40 mg 06/27/20 18:30 06/27/20 20:21 Furosemide 10 Mg /Ml Sdv 4ml IVP 40 mg Q24H RADHA Administration Levofloxacin/Dextr ose 750 mg in 150 mls @ 100 mls/hr 06/27/20 18:30 06/27/20 21:39 Levaquin-D5w IV Infused Q24H RADHA Infusion Protocol Dexmedetomidine HC l 400 mcg/ 104 mls @ 0 mls/h r 06/27/20 22:30 06/28/20 01:15 Sodium Chloride IV 0 mcg/kg/hr .Q0M RADHA 0 mls/hr Titration Protocol Per Protocol Insulin Aspart 0 unit 06/27/20 18:00 06/28/20 05:38 Insulin Aspart 1 00 Unit/1 Ml SUBCUT 6 unit Q6H RADHA Administration Protocol Methylprednisolone Sodium Succinate 80 mg 06/27/20 22:00 06/28/20 05:38 Methylprednisolo ne Sod Succ 125 Mg /2 Ml Inj IVP 80 mg Q8H RADHA Administration Montelukast Sodium 10 mg 06/28/20 09:00 06/28/20 08:20 Montelukast Sodi um 10 Mg Tablet PO 10 mg DAILY RADHA Administration Non-Formulary Medi cation 1 tab 06/28/20 09:00 06/28/20 08:28 Bictegrav-Emtric it-Tenofov Ala [Bi ktarvy] PO Not Given DAILY RADHA Quetiapine Fumarat e 25 mg 06/28/20 02:00 06/28/20 01:53 Quetiapine 25 Mg Tablet PO 25 mg BEDTIME RADHA Administration Fluticasone/Salmet otis 1 puff 06/27/20 20:00 06/28/20 07:48 Fluticasone-Salm eterol 500-50 Disk us INHALATION 1 puff BID.RESPIRATORY S CH Administration Trimethoprim/Sulfa methoxazole 1 tab 06/27/20 20:00 06/27/20 21:06 Sulfamethoxazole -Trimeth Ds 160-80 0 Mg Tablet PO 1 tab MoWeFr RADHA Administration Vitals/I&O/Wt Last Vital Signs Temp 98.2 F 06/28/20 08:00 Pulse 111 H 06/28/20 11:10 Resp 23 H 06/28/20 11:04 BP 134/74 06/28/20 10:00 Pulse Ox 96 06/28/20 11:04 06/27/20 06/28/20 06/28/20 22:59 06:59 14:59 Intake Total 660 / 660 127.5 / 787.5 Output Total 1400 / 1400 Balance 660 / 660 -1272.5 / -612.5 Weight last 48 hrs Weight 38.555 kg Physical Exam Narrative: EXAM NARRATIVE: Awake alert oriented. No acute distress. Mood and affect are appropriate. Responses are adequate. Skin is warm and dry Moist mucous membranes Eyes PERRL Neck supple. No JVD No respiratory distress. Lungs with decreased breath sounds. No wheezes today. No crackles. Heart S1, S2, regular tachycardia Abdomen soft, nontender, bowel sounds are present Extremities bilateral pedal edema. No cyanosis or calf tenderness bilaterally Moves all extremities. Normal speech. No facial asymmetry. Urinary Catheter Management^: Angulo: Cath Placed During This Visit: yes Reason for Continuing Indwelling Catheter: Accurate Measurement of Urinary Output in Critically Ill Patients Urinary Catheter Date of Insertion: 06/27/20 Urinary Catheter Time of Insertion: 20:38 Data : 06/27/20 14:10 06/27/20 14:10 A&P Additional A&P Information 59-year-old female with past medical history of COPD, CHF, HIV, tobacco abuse, chronic respiratory failure and frequent hospitalizations for worsening respiratory failure who is presenting with severe respiratory distress and con fusion. Acute hypoxic and hypercapnic respiratory failure on top of chronic. Most likely this is COPD acute exacerbation. Probably due to noncompliance and continued nicotine addiction. The patient is doing better today. Currently on 2 L of oxygen via nasal cannula. No respiratory distress. Decrease the dose of steroids. Continue the rest of the management. [facility]. CHF. Improved. We will switch Lasix to p.o. Acute metabolic encephalopathy secondary to #1. Resolved. Hyperglycemia. Last A1c was within normal range. Probably hyperglycemia is mainly due to steroids. Continue insulin sliding scale. Hyponatremia probably secondary to lung disease. We will continue monitoring. Tachycardia, sinus. This is due to her respiratory failure. Improved. Continue close monitoring. History of hypertension. We will continue her home medications. History of HIV. We will continue her home medications. Hypokalemia. Replaced. Continue monitoring. DVT prophylaxis. Lovenox. CODE STATUS. The patient confirms again today that she wants cardiac re suscitation and does not want intubation or mechanical ventilation. She remembers our conversation from yesterday. Attestations Medical Necessity Statement*: Still requires aggressive management with IV steroids, respiratory treatments and close monitoring. Coding Level of Care Code Acute Finger Buff Sewer for Paris Dickerson
[2020-06-28 12:07] LABS: Glucose Point of Care 232 mg/dL (70-110)
[2020-06-28 13:33] LABS: Basophils % 0.1 %; Hematocrit 35.5 % (37.0-47.0); Hemoglobin 11.3 g/dL (11.5-15.3); Lymphocytes # 0.2 10^3/uL (0.8-4.8); Lymphocytes % 2.1 %; Mean Corpuscular HGB Conc 31.8 g/dL (30.0-36.0); Mean Corpuscular Hemoglobin 28.9 pg (28.0-34.0); Mean Corpuscular Volume 90.8 fL (81-99); Mean Platelet Volume 10.5 fL (7.4-10.4); Monocytes % 0.3 %; Neutrophils # 9.35 10^3/uL (1.8-7.7); Neutrophils % 97.1 %; Nucleated Red Blood Cells % 0 %; Platelet Count 162 10^3/cmm (130-400); Red Blood Count 3.91 10^6/uL (4.1-5.3); Red Cell Distribution Width 13.1 % (12.1-15.1); White Blood Count 9.6 10^3/uL (4.0-10.0)
[2020-06-28] MEDS: LORazepam 2 mg/mL INJ 1 mL 0.5 MG IVP (13:57)
[2020-06-28 14:04] LABS: Alanine Aminotransferase 24 U/L (0-33); Albumin Level 3.4 g/dL (3.5-5.2); Alkaline Phosphatase 52 IU/L (35-105); Anion Gap 11.2 (5-19); Aspartate Amino Transferase 23 U/L (0-32); Blood Urea Nitrogen 28 mg/dL (6-20); Calcium 8.5 mg/dL (8.5-10.5); Chloride 80 mmol/L (98-107); Globulin 1.4 g/dL (1.3-4.6); Glomerular Filtration Rate 64.3 mL/min (90-130); Glucose 474 mg/dL (65-115); Magnesium 1.8 mg/dL (1.7-2.3); NT Pro B Type Natriuretic Pept 1121 pg/mL (0-125); Osmolality Calculated 298 mOsm/kg (285-295); Potassium 4.2 mmol/L (3.5-5.1); Sodium 131 mmol/L (136-145); Total Bilirubin 0.8 mg/dL (0.15-1.2); Total Protein 4.8 g/dL (6.6-8.7)
[2020-06-28 14:11] LABS: Carbon Dioxide 44 mmol/L (22-29)
[2020-06-28 17:17] LABS: Glucose Point of Care 461 mg/dL (70-110)
[2020-06-28] MEDS: FUROsemide 20 mg Tablet PO (18:41)
[2020-06-28] MEDS: enoxaparin 40 mg/0.4 mL Syringe SUBCUT (21:48)
[2020-06-28] MEDS: levofloxacin-dextrose 5 % 750 MG/150 ML PREMIX 100 MG IV (21:48)
[2020-06-28] MEDS: atorvastatin 40 mg Tablet PO (21:49)
[2020-06-28 23:29] LABS: Glucose Point of Care 186 mg/dL (70-110)
[2020-06-29] VITALS (28 sets, daily range): BP systolic 108–149; BP diastolic 62–73; PULSE 104–124; RESP 16–22; TEMP 36.5–37; O2SAT 92–97
[2020-06-29] MEDS: ipratropium-albuterol 3 mL Neb INHALATION ×6 (00:21→23:50)
[2020-06-29 05:58] LABS: Glucose Point of Care 355 mg/dL (70-110)
[2020-06-29 07:04] LABS: Hematocrit 31.5 % (37.0-47.0); Hemoglobin 10.1 g/dL (11.5-15.3); Lymphocytes # 0.3 10^3/uL (0.8-4.8); Lymphocytes % 5.8 %; Mean Corpuscular HGB Conc 32.1 g/dL (30.0-36.0); Mean Corpuscular Volume 90.5 fL (81-99); Mean Platelet Volume 10.9 fL (7.4-10.4); Monocytes # 0.1 10^3/uL (0.2-0.9); Neutrophils # 4.91 10^3/uL (1.8-7.7); Neutrophils % 91.5 %; Nucleated Red Blood Cells % 0 %; Platelet Count 138 10^3/cmm (130-400); Red Blood Count 3.48 10^6/uL (4.1-5.3); Red Cell Distribution Width 13.4 % (12.1-15.1); White Blood Count 5.4 10^3/uL (4.0-10.0)
[2020-06-29 07:23] LABS: Albumin Level 2.8 g/dL (3.5-5.2); Anion Gap 9.3 (5-19); Blood Urea Nitrogen 23 mg/dL (6-20); Calcium 8.3 mg/dL (8.5-10.5); Chloride 86 mmol/L (98-107); Glomerular Filtration Rate 56.9 mL/min (90-130); Glucose 342 mg/dL (65-115); Magnesium 1.8 mg/dL (1.7-2.3); Potassium 4.3 mmol/L (3.5-5.1); Sodium 134 mmol/L (136-145)
[2020-06-29 07:59] LABS: Carbon Dioxide 43 mmol/L (22-29)
[2020-06-29] MEDS: acyclovir 400 mg Tablet PO ×3 (08:20→20:29)
[2020-06-29] MEDS: carvedilol 3.125 mg Tablet PO ×2 (08:20→20:29)
[2020-06-29] MEDS: montelukast sodium 10 mg Tablet PO (08:20)
[2020-06-29] MEDS: FUROsemide 20 mg Tablet PO ×2 (08:20→16:23)
[2020-06-29] MEDS: aspirin 81 mg EC Tablet PO (08:20)
[2020-06-29] MEDS: famotidine 20 mg/2 mL INJ IVP ×2 (08:20→23:24)
[2020-06-29] MEDS: LORazepam 2 mg/mL INJ 1 mL 0.5 MG IVP (08:20)
--- NOTE | 2020-06-29 10:15 | PM.DCS ---
Discharge Providers Date of Admission: 06/27/20 16:46 Date of Discharge: June 29, 2020 Attending Provider at Admission: Francisco Smith Attending Provider at Discharge: Francisco Smith Primary Care Provider: Ta Salas MD Reason for Visit Reason for Visit: SOB Hospital Course Hospital Course 59-year-old female with past medical history of COPD, CHF, HIV, tobacco abuse, chronic respiratory failure and frequent hospitalizations for worsening respiratory failure who scented with severe respiratory distress and confusion. Acute hypoxic and hypercapnic respiratory failure on top of chronic secondary to COPD acute exacerbation. Probably due to noncompliance and continued nicotine addiction. Clinically the patient is doing better. Currently on 2 L of oxygen via nasal cannula. No respiratory distress. However she is still on high-dose steroids. She wants to leave hospital AGAINST MEDICAL ADVICE. I asked her to stay another day or 2 to continue steroid taper and safe environment under close medical supervision. However the patient is adamant to leave. I informed her that her condition most likely will worsen again and she might need to be hospitalized again. There is also risk that she might during 1 of episodes of acute respiratory failure if she does not follow recommended treatments and believes prematurely. However it seems that my explanations did not change her intentions to leave hospital. 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 She is instructed to come back to emergency room if she develops any worsening or any new symptoms. CHF. Improved. Continue home management. Acute metabolic encephalopathy secondary to #1. Resolved. Hyperglycemia. Last A1c was within normal range. Probably hyperglycemia is mainly due to steroids. Hyponatremia probably secondary to lung disease. Continue monitoring. Tachycardia, sinus. This is due to her respiratory failure. Improved. History of hypertension. We will continue her home medications. History of HIV. We will continue her home medications. Continue follow-up with Dr perry. Hypokalemia. Replaced. DVT prophylaxis. Received Lovenox. Physical Exam Narrative: EXAM NARRATIVE: Awake alert oriented. No acute distress. Mood and affect are appropriate. Responses are adequate. Skin is warm and dry Moist mucous membranes Eyes PERRL Neck supple. No JVD No respiratory distress. Lungs with decreased breath sounds. No wheezes Or crackles. Heart S1, S2, regular tachycardia Abdomen soft, nontender, bowel sounds are present Extremities bilateral pedal edema. No cyanosis or calf tenderness bilaterally Moves all extremities. Normal speech. No facial asymmetry. Urinary Catheter Management^: Angulo: Cath Placed During This Visit: yes Reason for Continuing Indwelling Catheter: Other Urinary Catheter Date of Insertion: 06/27/20 Urinary Catheter Time of Insertion: 20:38 Discharge Data Data Completed and Pending: Completed Studies During Hospitalization Category Date Time Status XR chest 1V wilda ble [id number] Urgent Exams 06/27/20 13:17 Completed Pending at discharge Category Date Time Status Arterial Blood Ga s Full Routine Lab 06/27/20 19:15 Results Complete Blood Co unt w/Auto AM LABS Lab 06/30/20 04:00 Ordered Magnesium AM LABS Lab 06/30/20 04:00 Ordered Renal Function Pa clayton AM LABS Lab 06/30/20 04:00 Ordered Labs from last 24 hours 06/29/20 06/29/20 06/29/20 06:27 06:27 05:42 WBC 5.4 RBC 3.48 L Hgb 10.1 L Hct 31.5 L MCV 90.5 MCH 29.0 MCHC 32.1 RDW 13.4 Plt Count 138 MPV 10.9 H Neut % (Auto) 91.5 Lymph % (Auto) 5.8 [place] % (Auto) 2.0 Eos % (Auto) 0.0 Baso % (Auto) 0.0 Neut # (Auto) 4.91 Lymph # (Auto) 0.3 L [place] # (Auto) 0.1 L Eos # (Auto) 0.0 Baso # (Auto) 0.0 Nucleated RBC % (a uto) 0 Nucleated RBCs # 0.0 Sodium 134 L Potassium 4.3 Chloride 86 L Carbon Dioxide 43 H* Anion Gap 9.3 BUN 23 H Creatinine 1.0 H GFR Calculation 56.9 L Glucose 342 H POC Glucose 355 H Calculated Osmolal ity Calcium 8.3 L Phosphorus 3.0 Magnesium 1.8 Total Bilirubin AST ALT Alkaline Phosphata se NT-Pro-B Natriuret Pep Total Protein Albumin 2.8 L Globulin 06/28/20 06/28/20 06/28/20 23:24 17:14 13:17 WBC RBC Hgb Hct MCV MCH MCHC RDW Plt Count MPV Neut % (Auto) Lymph % (Auto) [place] % (Auto) Eos % (Auto) Baso % (Auto) Neut # (Auto) Lymph # (Auto) [place] # (Auto) Eos # (Auto) Baso # (Auto) Nucleated RBC % (a uto) Nucleated RBCs # Sodium 131 L Potassium 4.2 Chloride 80 L Carbon Dioxide 44 H* Anion Gap 11.2 BUN 28 H Creatinine 0.9 GFR Calculation 64.3 L Glucose 474 H POC Glucose 186 H 461 H Calculated Osmolal ity 298 H Calcium 8.5 Phosphorus Magnesium 1.8 Total Bilirubin 0.8 AST 23 ALT 24 Alkaline Phosphata se 52 NT-Pro-B Natriuret Pep 1121 H Total Protein 4.8 L Albumin 3.4 L Globulin 1.4 06/28/20 06/28/20 13:17 12:03 WBC 9.6 RBC 3.91 L Hgb 11.3 L Hct 35.5 L MCV 90.8 MCH 28.9 MCHC 31.8 RDW 13.1 Plt Count 162 MPV 10.5 H Neut % (Auto) 97.1 Lymph % (Auto) 2.1 [place] % (Auto) 0.3 Eos % (Auto) 0.0 Baso % (Auto) 0.1 Neut # (Auto) 9.35 H Lymph # (Auto) 0.2 L [place] # (Auto) 0.0 L Eos # (Auto) 0.0 Baso # (Auto) 0.0 Nucleated RBC % (a uto) 0 Nucleated RBCs # 0.0 Sodium Potassium Chloride Carbon Dioxide Anion Gap BUN Creatinine GFR Calculation Glucose POC Glucose 232 H Calculated Osmolal ity Calcium Phosphorus Magnesium Total Bilirubin AST ALT Alkaline Phosphata se NT-Pro-B Natriuret Pep Total Protein Albumin Globulin Vitals: Last Vital Signs Temp 98.0 F 06/29/20 07:03 Pulse 117 H 06/29/20 08:00 Resp 18 06/29/20 08:00 BP 130/69 06/29/20 07:03 Pulse Ox 94 06/29/20 07:33 Discharge Plan Discharge Patient Disposition: Home Condition: Stable Prescriptions: New prednisone 10 mg tablet See Rx Instructions .ROUTE .COMPLEX Qty: 60 RF: 0 Continued sulfamethoxazole-trimethoprim [Bactrim] 400-80 mg tablet See Rx Instructions .ROUTE .COMPLEX RF: 0 montelukast [Singulair] 10 mg tablet 10 mg PO DAILY RF: 0 albuterol sulfate [ProAir HFA] 90 mcg/actuation HFA aerosol inhaler 2 puff INHALATION Q6H PRN (Reason: Shortness Of Breath) RF: 0 Biktarvy 50-200-25 mg tablet 1 tab PO DAILY RF: 0 atorvastatin 40 mg tablet 40 mg PO BEDTIME RF: 0 pantoprazole 40 mg Recon Soln 40 mg IV DAILY RF: 0 acyclovir 400 mg Tablet 400 mg PO TID RF: 0 aspirin 81 mg Tablet,Delayed Release (Dr/Ec) 81 mg PO DAILY RF: 0 carvedilol 3.125 mg tablet 3.125 mg PO BID RF: 0 Lasix 20 mg tablet 20 mg PO DAILY PRN (Reason: Edema) Qty: 30 RF: 0 Spiriva with HandiHaler 18 mcg Capsule, W/Inhalation Device 1 cap INHALATION DAILY RF: 0 budesonide-formoterol [Symbicort] 160-4.5 mcg/actuation Hfa Aerosol Inhaler 2 puff INHALATION BID RF: 0 ipratropium-albuterol 0.5 mg-3 mg(2.5 mg base)/3 mL Solution For Nebulization 3 ml INHALATION QID PRN (Reason: Shortness Of Breath) Qty: 180 RF: 0 Combivent Respimat 20-100 mcg/actuation mist 1 puff inhalation Q6H Qty: 4 RF: 0 (DME) glucometer See Rx Instructions .Route .MEDSUPPLY Qty: 1 RF: 0 insulin aspart U-100 [Novolog Flexpen U-100 Insulin] 100 unit/mL (3 mL) insulin pen See Rx Instructions .ROUTE .COMPLEX Qty: 15 RF: 0 Discontinued prednisone 5 mg tablet 5 mg PO DAILY RF: 0 Referrals: Faiza Perry MD [Hospitalist] - 1 week Yamilex Bearden MD [Physician] - 1-3 days Patient Instructions: Chronic Obstructive Pulmonary Disease (DC) Discharge Attestations Time Spent in Discharge Care*: less than 30 min Status at Discharge: Cognitive status at discharge: cognitively intact, Behavioral status at discharge: other (Uncooperative ), Quality Metrics Clinical Quality Measures During this hospital stay, did patient experience: None Coding Level of Care Code Acute Chg FW DC note
[2020-06-29 11:04] LABS: Glucose Point of Care 289 mg/dL (70-110)
[2020-06-29 18:37] LABS: Glucose Point of Care 200 mg/dL (70-110)
[2020-06-29] MEDS: enoxaparin 40 mg/0.4 mL Syringe SUBCUT (20:28)
[2020-06-29] MEDS: quetiapine 25 mg Tablet PO (20:29)
[2020-06-29] MEDS: atorvastatin 40 mg Tablet PO (20:29)
[2020-06-30] VITALS (11 sets, daily range): BP systolic 121–136; BP diastolic 72–81; PULSE 96–111; RESP 17–24; TEMP 36.4–37.4; O2SAT 93–97
[2020-06-30 01:13] LABS: Glucose Point of Care 116 mg/dL (70-110)
[2020-06-30 05:54] LABS: Glucose Point of Care 129 mg/dL (70-110)
[2020-06-30 05:55] LABS: Basophils % 0.2 %; Eosinophils % 0.6 %; Hematocrit 35.2 % (37.0-47.0); Hemoglobin 11.3 g/dL (11.5-15.3); Lymphocytes # 0.9 10^3/uL (0.8-4.8); Lymphocytes % 17.4 %; Mean Corpuscular HGB Conc 32.1 g/dL (30.0-36.0); Mean Corpuscular Volume 90.5 fL (81-99); Mean Platelet Volume 10.3 fL (7.4-10.4); Monocytes # 0.4 10^3/uL (0.2-0.9); Monocytes % 6.9 %; Neutrophils % 74.9 %; Nucleated Red Blood Cells % 0 %; Platelet Count 127 10^3/cmm (130-400); Red Blood Count 3.89 10^6/uL (4.1-5.3); Red Cell Distribution Width 13.4 % (12.1-15.1); White Blood Count 5.3 10^3/uL (4.0-10.0)
[2020-06-30 06:12] LABS: Albumin Level 2.9 g/dL (3.5-5.2); Anion Gap 6.7 (5-19); Blood Urea Nitrogen 22 mg/dL (6-20); Calcium 8.3 mg/dL (8.5-10.5); Chloride 87 mmol/L (98-107); Glomerular Filtration Rate 56.9 mL/min (90-130); Glucose 127 mg/dL (65-115); Phosphorus 3.1 mg/dL (2.5-4.5); Potassium 3.7 mmol/L (3.5-5.1); Sodium 133 mmol/L (136-145)
[2020-06-30 06:17] LABS: Carbon Dioxide 43 mmol/L (22-29)
[2020-06-30] MEDS: ipratropium-albuterol 3 mL Neb INHALATION ×2 (07:52→11:46)
[2020-06-30] MEDS: montelukast sodium 10 mg Tablet PO (08:26)
[2020-06-30] MEDS: aspirin 81 mg EC Tablet PO (08:26)
[2020-06-30] MEDS: acyclovir 400 mg Tablet PO (08:26)
[2020-06-30] MEDS: carvedilol 3.125 mg Tablet PO (08:26)
[2020-06-30] MEDS: FUROsemide 20 mg Tablet PO (08:26)
[2020-06-30] MEDS: famotidine 20 mg/2 mL INJ IVP (08:27)
[2020-06-30] MEDS: NON-FORMULARY MEDICATION (Bictegrav-Emtricit-Tenofov Ala [Biktarvy] 50-200-25 mg tablet) 1 EACH PO (10:26)
[2020-06-30 10:54] LABS: Glucose Point of Care 324 mg/dL (70-110)
[2020-06-30] MEDS: sodium chloride 3.5% neb 4 mL Neb INHALATION (11:11)
--- NOTE | 2020-06-30 16:26 | PC.RESP ---
Smoking Cessation and Pulmonary Rehab information sent to patient.
--- NOTE | 2020-06-30 18:05 | PM.DCS ---
Discharge Providers Date of Admission: 06/27/20 16:46 Date of Discharge: June 30, 2020 Attending Provider at Admission: Francisco Smith Attending Provider at Discharge: Faiza Perry MD Primary Care Provider: Ta Salas MD Reason for Visit Reason for Visit: SOB Hospital Course Hospital Course Please refer to dictated discharge summary from yesterday by Dr. Bill. Patient continues to do well this morning, steroids were tapered. Currently on baseline oxygen requirements. Discharged today in stable condition. No acute interim events. Induce sputum taken for mycobacterial culture and MTB PCR as planned as outpatient. 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 Urinary Catheter Management^: Angulo: Cath Placed During This Visit: yes Reason for Continuing Indwelling Catheter: Other Urinary Catheter Date of Insertion: 06/27/20 Urinary Catheter Time of Insertion: 20:38 Discharge Data Data Completed and Pending: Completed Studies During Hospitalization Category Date Time Status XR chest 1V wilda ble [id number] Urgent Exams 06/27/20 13:17 Completed Pending at discharge Category Date Time Status Miscellaneous Priyanka t Routine Lab 06/30/20 10:17 Ordered Mycobacteria, Cul ture w/Fluor Stat Lab 06/30/20 11:32 Ordered Labs from last 24 hours 06/30/20 06/30/20 06/30/20 10:50 05:42 05:21 WBC RBC Hgb Hct MCV MCH MCHC RDW Plt Count MPV Neut % (Auto) Lymph % (Auto) [place] % (Auto) Eos % (Auto) Baso % (Auto) Neut # (Auto) Lymph # (Auto) [place] # (Auto) Eos # (Auto) Baso # (Auto) Nucleated RBC % (a uto) Nucleated RBCs # ABG pCO2 Sodium 133 L Potassium 3.7 Chloride 87 L Carbon Dioxide 43 H* Anion Gap 6.7 BUN 22 H Creatinine 1.0 H GFR Calculation 56.9 L Glucose 127 H POC Glucose 324 H 129 H Calcium 8.3 L Phosphorus 3.1 Magnesium 2.0 Albumin 2.9 L 06/30/20 06/30/20 06/29/20 05:21 00:52 18:34 WBC 5.3 RBC 3.89 L Hgb 11.3 L Hct 35.2 L MCV 90.5 MCH 29.0 MCHC 32.1 RDW 13.4 Plt Count 127 L MPV 10.3 Neut % (Auto) 74.9 Lymph % (Auto) 17.4 [place] % (Auto) 6.9 Eos % (Auto) 0.6 Baso % (Auto) 0.2 Neut # (Auto) 4.00 Lymph # (Auto) 0.9 [place] # (Auto) 0.4 Eos # (Auto) 0.0 Baso # (Auto) 0.0 Nucleated RBC % (a uto) 0 Nucleated RBCs # 0.0 ABG pCO2 Sodium Potassium Chloride Carbon Dioxide Anion Gap BUN Creatinine GFR Calculation Glucose POC Glucose 116 H 200 H Calcium Phosphorus Magnesium Albumin 06/27/20 19:15 WBC RBC Hgb Hct MCV MCH MCHC RDW Plt Count MPV Neut % (Auto) Lymph % (Auto) [place] % (Auto) Eos % (Auto) Baso % (Auto) Neut # (Auto) Lymph # (Auto) [place] # (Auto) Eos # (Auto) Baso # (Auto) Nucleated RBC % (a uto) Nucleated RBCs # ABG pCO2 70.0 H* Sodium Potassium Chloride Carbon Dioxide Anion Gap BUN Creatinine GFR Calculation Glucose POC Glucose Calcium Phosphorus Magnesium Albumin Vitals: Last Vital Signs Temp 97.6 F 06/30/20 14:39 Pulse 102 H 06/30/20 14:39 Resp 18 06/30/20 14:39 BP 136/81 06/30/20 14:39 Pulse Ox 94 06/30/20 14:39 Discharge Plan Discharge Patient Disposition: Home Condition: Stable Prescriptions: New prednisone 10 mg tablet See Rx Instructions .ROUTE .COMPLEX Qty: 60 RF: 0 Continued sulfamethoxazole-trimethoprim [Bactrim] 400-80 mg tablet See Rx Instructions .ROUTE .COMPLEX RF: 0 montelukast [Singulair] 10 mg tablet 10 mg PO DAILY RF: 0 albuterol sulfate [ProAir HFA] 90 mcg/actuation HFA aerosol inhaler 2 puff INHALATION Q6H PRN (Reason: Shortness Of Breath) RF: 0 Biktarvy 50-200-25 mg tablet 1 tab PO DAILY RF: 0 atorvastatin 40 mg tablet 40 mg PO BEDTIME RF: 0 pantoprazole 40 mg Recon Soln 40 mg IV DAILY RF: 0 acyclovir 400 mg Tablet 400 mg PO TID RF: 0 aspirin 81 mg Tablet,Delayed Release (Dr/Ec) 81 mg PO DAILY RF: 0 carvedilol 3.125 mg tablet 3.125 mg PO BID RF: 0 Lasix 20 mg tablet 20 mg PO DAILY PRN (Reason: Edema) Qty: 30 RF: 0 Spiriva with HandiHaler 18 mcg Capsule, W/Inhalation Device 1 cap INHALATION DAILY RF: 0 budesonide-formoterol [Symbicort] 160-4.5 mcg/actuation Hfa Aerosol Inhaler 2 puff INHALATION BID RF: 0 ipratropium-albuterol 0.5 mg-3 mg(2.5 mg base)/3 mL Solution For Nebulization 3 ml INHALATION QID PRN (Reason: Shortness Of Breath) Qty: 180 RF: 0 Combivent Respimat 20-100 mcg/actuation mist 1 puff inhalation Q6H Qty: 4 RF: 0 (DME) glucometer See Rx Instructions .Route .MEDSUPPLY Qty: 1 RF: 0 insulin aspart U-100 [Novolog Flexpen U-100 Insulin] 100 unit/mL (3 mL) insulin pen See Rx Instructions .ROUTE .COMPLEX Qty: 15 RF: 0 Discontinued prednisone 5 mg tablet 5 mg PO DAILY RF: 0 Discharge Orders: Discharge Order (Routine); Ordered 06/30/20 Ordered By: Faiza Perry Referrals: [facility] [Outside] Yamilex Bearden MD [Physician] - 07/02/20 10:45 am Patient Instructions: Prednisone (By mouth), Congestive Heart Failure, Chronic Obstructive Pulmonary Disease (DC), CHF Stoplight Discharge Attestations Time Spent in Discharge Care*: less than 30 min Status at Discharge: Cognitive status at discharge: cognitively intact, Behavioral status at discharge: other (Uncooperative ), Quality Metrics Clinical Quality Measures During this hospital stay, did patient experience: None Coding Level of Care Code Acute Chg FW DC note
== END 2020-06-30 13:15 | disposition home or self-care (01) | DRG 189 ==
LOC: ER 17:04 → ICU 17:05 → MEDSURG 06-28 13:45
PROVIDERS: Admitting Provider Internal Medicine; Emergency Provider Family Medicine; PCP Family Medicine; Visit Provider Student in an Organized Health Care Education/Training Program
DX: J96.22 Acute and chronic respiratory failure with hypercapnia (principal); G93.41 Metabolic encephalopathy; J44.1 Chronic obstructive pulmonary disease with (acute) exacerbation; B20 Human immunodeficiency virus [HIV] disease; E46 Unspecified protein-calorie malnutrition; Z68.1 Body mass index [BMI] 19.9 or less, adult; E87.1 Hypo-osmolality and hyponatremia; J96.21 Acute and chronic respiratory failure with hypoxia; I11.0 Hypertensive heart disease with heart failure; I50.9 Heart failure, unspecified; F17.210 Nicotine dependence, cigarettes, uncomplicated; Z99.81 Dependence on supplemental oxygen; K21.9 Gastro-esophageal reflux disease without esophagitis; Z91.19 Patient's noncompliance with other medical treatment and regimen; R73.9 Hyperglycemia, unspecified; T38.0X5A Adverse effect of glucocorticoids and synthetic analogues, initial encounter; E87.6 Hypokalemia; Z66 Do not resuscitate; Z79.82 Long term (current) use of aspirin
CPT/HCPCS: 36415; 36416; 36600; 51702; 71045; 80051; 80053; 80069; 81003; 82330; 82550; 82805; 82962; 83605; 83735; 83880; 84484; 85025; 85378; 93005; 94640; 94660; 94664; 96365; 96372; 96375; 99291; J1650; J1815; J1940; J1956; J2060; J2930; J3490; J7040; J8499

== ENCOUNTER 2020-07-10 12:48 | Inpatient (IN) | payer MEDICAID, SELFPAY ==
[2020-07-10] VITALS (46 sets, daily range): BP systolic 101–156; BP diastolic 60–92; PULSE 66–137; RESP 14–41; TEMP 36.7–37.4; O2SAT 90–100; BMI 16.6
--- NOTE | 2020-07-10 13:22 | XR_ITS ---
WS: [id number] Portable AP upright chest, 07/10/2020 Clinical Data: dyspnea/cough Comparison: Portable chest, 06/27/2020. Findings: No nodules, masses or effusions are seen. The heart is normal. The pulmonary vascularity is not increased. No pneumonia or pneumothorax is seen. The diaphragms are flattened. There are monitor leads on the chest wall. XR/XR chest 1V portable [id number] Impression: Hyperinflation.
--- NOTE | 2020-07-10 13:26 | W.ED.SOB ---
HPI - SOB/Dyspnea General: Chief Complaint: Shortness of Breath/Dyspnea Stated Complaint: SOB Time Seen by Provider: 07/10/20 13:09 History of Present Illness: HPI Narrative: 59-year-old female brought in by EMS home health found her complaining of shortness of breath she was poorly responsive. She usually wears 2 L by nasal cannula when she arrived here her oxygen was at 5-6 she is lethargic but did respond he even made some jokes. She denies chest pain she does admit to the shortness of breath denies abdominal pain nausea vomit diarrhea dysuria urgency or frequency she has not had a fever productive cough on the entirely sure she understood that level of specificity in questioning. MD elicited complaint: shortness of breath and cough Pertinent past history: COPD Onset (ago): unknown Timing: constant Severity: severe Exacerbating factors: coughing and talking Relieving factors: oxygen and rest Known history of: COPD Associated symptoms: Deny abdominal pain, chest congestion, chest pain, cough, diaphoresis, dizziness, extremity pain, fever(s), hemoptysis, lightheadedness, myalgias, nausea, orthopnea, palpitations, paresthesias, polydipsia, polyuria, sense of impending doom, syncope or vomiting Treatment prior to arrival: oxygen Review of Systems Const: Denies: fever(s) or diaphoresis ENMT: Denies: throat pain, ear or mastoid pain, nasal discharge or nasal congestion Card: Denies: chest pain, palpitations, lightheadedness, syncope or orthopnea Resp: Denies: hemoptysis or chest congestion GI: Denies: abdominal pain, nausea or vomiting : Denies: flank pain, difficulty voiding, dysuria, urinary frequency or urinary urgency Musc: Denies: extremity pain Skin/Breast: Denies: rash or pruritus Neuro: Denies: dizziness Endo: Denies: polyuria or polydipsia PFSH ED PFSH: Medical History CHF (congestive heart failure) Ejection fraction 57% on echocardiogram done 05/15/2020 Chronic respiratory failure with hypoxia and hypercapnia COPD (chronic obstructive pulmonary disease) Edema of left lower extremity GERD (gastroesophageal reflux disease) HIV (human immunodeficiency virus infection) Nicotine addiction Protein calorie malnutrition Surgical History H/O laparoscopy History of History of hysterectomy Family History Mother COPD (chronic obstructive pulmonary disease) Father CAD (coronary artery disease) Social History Smoking and tobacco status: current every day smoker cigarettes Years cigarettes smoked: 50 [ Other cigarette details: Hx of 1 PPD x 15 Years ] Second hand smoke exposure: Yes Alcohol intake: current Alcohol intake frequency: holidays/special occasions only Lives independently: Yes Household members: none Marital status: / Current occupational status: disabled History of recent travel: No Current gender identity: Female Female Reproductive History: Date of last menstrual period: 06/27/20 Physical Exam HENMT: COMMON NORMALS: normocephalic, atraumatic and hearing grossly normal bilaterally HEAD & SCALP: normocephalic and atraumatic Neck/C-Spine: COMMON NORMALS: full ROM, no lymphadenopathy, supple and no JVD Lymph: LYMPHATIC: no lymphadenopathy noted and no lymphedema noted Cardio: COMMON NORMALS: no JVD GI: COMMON NORMALS: Soft to palpation and No hepatosplenomegaly present AUSCULTATION: Yes normoactive bowel sounds PALPATION: Yes Soft to palpation, No Tenderness to palpation present (GI), No Guarding due to palpation present (GI) and Yes No hepatosplenomegaly present Extremity: COMMON NORMALS: normal to inspection, capillary refill normal, no clubbing, cyanosis or edema, no calf tenderness and no pedal edema Skin: COMMON NORMALS: no rashes or lesions noted GENERAL SKIN EXAM: no rashes or lesions noted Course Vital Signs: Vital signs: Vital Signs Temperature 98 F 07/11/20 05:45 Pulse Rate 118 H 07/11/20 08:42 Respiratory Rate 28 H 07/11/20 08:33 Blood Pressure 160/85 07/11/20 05:00 Pulse Oximetry 98 07/11/20 08:41 MDM - SOB/Dyspnea MDM Narrative: Medical decision making narrative: Patient improved significantly significantly with just BiPAP. Her wheezing is decreased slightly. Chest x-ray does not show any infiltrates. I think we can safely at this point go ahead and add steroids and nebulizers and held off initially because of the potential for Covid. With her normal chest x-ray do not think Covid is a significant issue. She was able to tell me she is not had any diarrhea either. Zaid Jc will admit recommended to go to the ICU given her respiratory distress. Lab Data: Labs: Lab Results 07/10/20 07/10/20 07/10/20 Range/Units 13:18 13:18 13:25 WBC 6.1 (4.0-10.0) 10^3/ uL RBC 4.15 (4.1-5.3) 10^6/u L Hgb 12.2 (11.5-15.3) g/dL Hct 40.5 (37.0-47.0) % MCV 97.6 (81-99) fL MCH 29.4 (28.0-34.0) pg MCHC 30.1 (30.0-36.0) g/dL RDW 13.9 (12.1-15.1) % Plt Count 230 (130-400) 10^3/c mm MPV 9.7 (7.4-10.4) fL Neut % (Auto) 80.6 % Lymph % (Auto) 10.0 % [place] % (Auto) 6.7 % Eos % (Auto) 1.5 % Baso % (Auto) 0.7 % Neut # (Auto) 4.90 (1.8-7.7) 10^3/u L Lymph # (Auto) 0.6 L (0.8-4.8) 10^3/u L [place] # (Auto) 0.4 (0.2-0.9) 10^3/u L Eos # (Auto) 0.1 (0.0-0.8) 10^3/u L Baso # (Auto) 0.0 (0.0-0.1) 10^3/u L Nucleated RBC % (a uto) 0 % Nucleated RBCs # 0.0 /100WBC Specimen Type Arterial Sample Site Brachial, right ABG pH 7.25 L (7.35-7.45) ABG pCO2 109.0 H* (35-45) mmHg ABG pO2 101.0 H (80.0-100.0) mmH g ABG HCO3 48.0 H (22-26) mmol/L ABG O2 Saturation 97.8 ABG Base Excess 16.2 H (-2.0-2.0) mmol/ L Adrian Test N/a A-a O2 Gradient Not Reportable Hematocrit 37.3 (37-47) % Hgb O2 Saturation 94.9 L (95-100) % Carboxyhemoglobin 2.1 (0.4-20.1) %THgb Methemoglobin 0.9 (0.4-1.5) % Total Hemoglobin 12.2 (12-16) g/dL Ionized Calcium 1.2 (1.1-1.4) mmol/L O2 Delivery Device Nc O2 Liters/Min 3.0 % FiO2 32.0 % Auto Painter Helper ID Ed Sodium 135 L 135.0 (136-145) mmol/L Potassium 5.2 H 4.7 (3.5-5.1) mmol/L Chloride 89 L (98-107) mmol/L Carbon Dioxide 40 H (22-29) mmol/L Anion Gap 11.2 (5-19) BUN 8 (6-20) mg/dL Creatinine 0.6 (0.5-0.9) mg/dL GFR Calculation 102.7 (90-130) mL/min Glucose 182 H 178.0 H (65-115) mg/dL Calculated Osmolal ity 283 L (285-295) mOsm/k g Calcium 8.3 L (8.5-10.5) mg/dL Total Bilirubin 0.6 (0.15-1.2) mg/dL AST 32 (0-32) U/L ALT 29 (0-33) U/L Alkaline Phosphata se 59 (35-105) IU/L Creatine Kinase 50 (26-192) U/L Total Protein 5.2 L (6.6-8.7) g/dL Albumin 3.7 (3.5-5.2) g/dL Globulin 1.5 (1.3-4.6) g/dL Urine Color (Yellow) Urine Appearance (CLEAR) Urine pH (5-7) Ur Specific Gravit y (1.005-1.030) Urine Protein (Negative) Urine Glucose (UA) (Normal) Urine Ketones (Negative) Urine Blood (Negative) Urine Nitrate (Negative) Urine Bilirubin (Negative) Urine Urobilinogen (Negative) mg/dL Ur Leukocyte [place] ase (Negative) 07/10/20 Range/Units 13:56 WBC (4.0-10.0) 10^3/ uL RBC (4.1-5.3) 10^6/u L Hgb (11.5-15.3) g/dL Hct (37.0-47.0) % MCV (81-99) fL MCH (28.0-34.0) pg MCHC (30.0-36.0) g/dL RDW (12.1-15.1) % Plt Count (130-400) 10^3/c mm MPV (7.4-10.4) fL Neut % (Auto) % Lymph % (Auto) % [place] % (Auto) % Eos % (Auto) % Baso % (Auto) % Neut # (Auto) (1.8-7.7) 10^3/u L Lymph # (Auto) (0.8-4.8) 10^3/u L [place] # (Auto) (0.2-0.9) 10^3/u L Eos # (Auto) (0.0-0.8) 10^3/u L Baso # (Auto) (0.0-0.1) 10^3/u L Nucleated RBC % (a uto) % Nucleated RBCs # /100WBC Specimen Type Sample Site ABG pH (7.35-7.45) ABG pCO2 (35-45) mmHg ABG pO2 (80.0-100.0) mmH g ABG HCO3 (22-26) mmol/L ABG O2 Saturation ABG Base Excess (-2.0-2.0) mmol/ L Adrian Test A-a O2 Gradient Hematocrit (37-47) % Hgb O2 Saturation (95-100) % Carboxyhemoglobin (0.4-20.1) %THgb Methemoglobin (0.4-1.5) % Total Hemoglobin (12-16) g/dL Ionized Calcium (1.1-1.4) mmol/L O2 Delivery Device O2 Liters/Min % FiO2 % Auto Painter Helper ID Sodium (136-145) mmol/L Potassium (3.5-5.1) mmol/L Chloride (98-107) mmol/L Carbon Dioxide (22-29) mmol/L Anion Gap (5-19) BUN (6-20) mg/dL Creatinine (0.5-0.9) mg/dL GFR Calculation (90-130) mL/min Glucose (65-115) mg/dL Calculated Osmolal ity (285-295) mOsm/k g Calcium (8.5-10.5) mg/dL Total Bilirubin (0.15-1.2) mg/dL AST (0-32) U/L ALT (0-33) U/L Alkaline Phosphata se (35-105) IU/L Creatine Kinase (26-192) U/L Total Protein (6.6-8.7) g/dL Albumin (3.5-5.2) g/dL Globulin (1.3-4.6) g/dL Urine Color Yellow (Yellow) Urine Appearance Clear (CLEAR) Urine pH 5 (5-7) Ur Specific Gravit y 1.025 (1.005-1.030) Urine Protein Neg (Negative) Urine Glucose (UA) Norm (Normal) Urine Ketones Negative (Negative) Urine Blood Neg (Negative) Urine Nitrate Negative (Negative) Urine Bilirubin 1+ H (Negative) Urine Urobilinogen Norm (Negative) mg/dL Ur Leukocyte [place] ase Negative (Negative) Discharge Plan Discharge Patient Disposition: Admitted As Inpatient Admit Provider: Doris Jc Clinical Impression: Acute on chronic respiratory failure with hypoxia and hypercapnia, COPD (chronic obstructive pulmonary disease) Condition: Stable Coding Level of Care Code ED Administrative Representative for Paris Dickerson
[2020-07-10 13:35] LABS: ABG PH Result 7.25 (7.35-7.45); Arterial Blood Gas Hematocrit 37.3 % (37-47); Base Excess ABG 16.2 mmol/L (-2.0-2.0); Blood Gas Sample Type Arterial; Carboxyhemoglobin 2.1 %THgb (0.4-20.1); HGB O2 Sat 94.9 % (95-100); Ionized Calcium Level - ABG 1.2 mmol/L (1.1-1.4); Methemoglobin 0.9 % (0.4-1.5); Oxygen Saturation ABG 97.8; Potassium Level - ABG 4.7 mmol/L (3.5-5.0); Total Hemoglobin 12.2 g/dL (12-16)
[2020-07-10 13:36] LABS: Blood Gas Operator Identificat ED; Blood Gas Sample Site Brachial, right; Oxygen Device NC
[2020-07-10 13:40] LABS: Basophils % 0.7 %; Eosinophils # 0.1 10^3/uL (0.0-0.8); Eosinophils % 1.5 %; Hematocrit 40.5 % (37.0-47.0); Hemoglobin 12.2 g/dL (11.5-15.3); Lymphocytes # 0.6 10^3/uL (0.8-4.8); Mean Corpuscular HGB Conc 30.1 g/dL (30.0-36.0); Mean Corpuscular Hemoglobin 29.4 pg (28.0-34.0); Mean Corpuscular Volume 97.6 fL (81-99); Mean Platelet Volume 9.7 fL (7.4-10.4); Monocytes # 0.4 10^3/uL (0.2-0.9); Monocytes % 6.7 %; Neutrophils % 80.6 %; Nucleated Red Blood Cells % 0 %; Platelet Count 230 10^3/cmm (130-400); Red Blood Count 4.15 10^6/uL (4.1-5.3); Red Cell Distribution Width 13.9 % (12.1-15.1); White Blood Count 6.1 10^3/uL (4.0-10.0)
[2020-07-10 13:50] LABS: Alanine Aminotransferase 29 U/L (0-33); Albumin Level 3.7 g/dL (3.5-5.2); Alkaline Phosphatase 59 IU/L (35-105); Blood Urea Nitrogen 8 mg/dL (6-20); Calcium 8.3 mg/dL (8.5-10.5); Carbon Dioxide 40 mmol/L (22-29); Chloride 89 mmol/L (98-107); Creatine Phosphokinase 50 U/L (26-192); Globulin 1.5 g/dL (1.3-4.6); Glomerular Filtration Rate 102.7 mL/min (90-130); Glucose 182 mg/dL (65-115); Osmolality Calculated 283 mOsm/kg (285-295); Sodium 135 mmol/L (136-145); Total Bilirubin 0.6 mg/dL (0.15-1.2); Total Protein 5.2 g/dL (6.6-8.7)
[2020-07-10 13:52] LABS: Anion Gap 11.2 (5-19); Aspartate Amino Transferase 32 U/L (0-32); Potassium 5.2 mmol/L (3.5-5.1)
[2020-07-10 14:07] LABS: Add Urine Microscopic? NO; Charge for UA Resulting for Rev
[2020-07-10 14:12] LABS: Bilirubin Urine 1+ (Negative); Blood Urine Neg (Negative); Glucose Urine UA Norm (Normal); Ketones Urine Negative (Negative); Leukocyte Esterase Urine Negative (Negative); Nitrate Urine Negative (Negative); Protein Urine Neg (Negative); Specific Gravity, Urine 1.025 (1.005-1.030); Urine Appearance Clear (CLEAR); Urine Color Yellow (Yellow); Urobilinogen Urine Norm (Negative); pH Urine 5 (5-7)
[2020-07-10 15:51] LABS: ABG PCO2 71.2 mmHg (35-45); ABG PH Result 7.44 (7.35-7.45); Alveolar-Arterial Oxygen Gradi 7.4 mmHg (5-10); Arterial Blood Gas Hematocrit 37.3 % (37-47); Base Excess ABG 20.5 mmol/L (-2.0-2.0); Blood Gas Allen Test Pos; Blood Gas Operator Identificat CAK; Blood Gas Sample Site Radial, left; Blood Gas Sample Type Arterial; Carboxyhemoglobin 2.2 %THgb (0.4-20.1); HCO3 ABG 48.5 mmol/L (22-26); HGB O2 Sat 91.3 % (95-100); Ionized Calcium Level - ABG 1.2 mmol/L (1.1-1.4); Methemoglobin 0.7 % (0.4-1.5); Oxygen Device BIPAP; PO2 ABG 57.8 mmHg (80.0-100.0); Potassium Level - ABG 4.8 mmol/L (3.5-5.0); Total Hemoglobin 12.2 g/dL (12-16)
--- NOTE | 2020-07-10 17:34 | PM.HP ---
Providers/Chief Complaint Admitting Physician: Doris Jc MD Primary Care Provider: Ta Salas MD Chief Complaint: SOB History of Present Illness Adore Broussard is a 59 year old female known to me from prior admissions who presented to the emergency room after being found unresponsive or at least with a decreased level of responsiveness and difficulty breathing by home health. Ambulance was called and brought her in. ABG showed a PCO2 of 109 with a pH 7.26. She was put on some BiPAP. She has started to come around and ABG is improving. She has been tachycardic since breathing treatments administered by EMS. She also received steroids via EMS. She denies chest pain. She shakes her head yes that she is breathing better. Not vomiting. May have had some fever at some point but answer was not clear. It is unclear how long patient had been a that she was. She does live alone. She is being admitted to the ICU. Review of Systems General: Reports: ROS unobtainable due to mental status Narrative: The only information I could directly get from her the answers provided in HPI. Medications/Allergies Home Medications Medication Instructions Recorded Confirmed Last Taken Type albuterol sulfate 90 mcg/actuation 2 puff INHALATION Q6H PRN 10/03/19 07/10/20 Unknown History aerosol inhaler montelukast 10 mg tablet 10 mg PO DAILY 10/03/19 07/10/20 04/22/20 History sulfamethoxazole 400 See Rx Instructions .ROUTE 10/03/19 07/10/20 04/21/20 History mg-trimethoprim 80 mg tablet .COMPLEX tab Biktarvy 1 tab PO DAILY 04/23/20 07/10/20 04/23/20 History Spiriva with HandiHaler 1 cap INHALATION DAILY 05/05/20 07/10/20 Unknown History budesonide-formoterol [Symbicort] 2 puff INHALATION BID 05/05/20 07/10/20 Unknown History ipratropium-albuterol 3 ml INHALATION QID PRN #180 ml 05/16/20 07/10/20 Unknown Rx glucometer #1 ea 06/16/20 07/10/20 Unknown Rx insulin aspart U-100 [Novolog See Rx Instructions .ROUTE 06/16/20 07/10/20 Unknown Rx Flexpen U-100 Insulin] .COMPLEX #15 ml acyclovir 400 mg PO TID 06/27/20 07/10/20 Unknown History aspirin 81 mg PO DAILY 06/27/20 07/10/20 Unknown History atorvastatin 40 mg PO BEDTIME 06/27/20 07/10/20 Unknown History carvedilol 3.125 mg PO BID 06/27/20 07/10/20 Unknown History furosemide [Lasix] 20 mg PO DAILY PRN #30 tab 06/29/20 07/10/20 Unknown Rx prednisone See Rx Instructions .ROUTE 06/29/20 07/10/20 Unknown Rx .COMPLEX #60 tab Combivent Respimat 1 puff INHALATION Q6H PRN 07/10/20 07/10/20 Unknown History pantoprazole 40 mg PO DAILY 07/10/20 07/10/20 Unknown History Allergies Allergy/AdvReac Type Severity Reaction Status Date / Time Penicillins Allergy ALGY-Difficulty Verified 07/10/20 12:54 Breathing phenobarbital Allergy ALGY-Hives Verified 07/10/20 12:54 Tetanus Vaccines and Toxoid Allergy ALGY-Hives Verified 07/10/20 12:54 PFSH Acute PFSH: Medical History CHF (congestive heart failure) Ejection fraction 57% on echocardiogram done 05/15/2020 Chronic respiratory failure with hypoxia and hypercapnia COPD (chronic obstructive pulmonary disease) Edema of left lower extremity Fever GERD (gastroesophageal reflux disease) HIV (human immunodeficiency virus infection) Nicotine addiction Protein calorie malnutrition Surgical History H/O laparoscopy Family History Mother COPD (chronic obstructive pulmonary disease) Father CAD (coronary artery disease) Social History Smoking and tobacco status: current every day smoker cigarettes Years cigarettes smoked: 50 [ Other cigarette details: Hx of 1 PPD x 15 Years ] Second hand smoke exposure: Yes Alcohol intake: current Alcohol intake frequency: holidays/special occasions only Lives independently: Yes Household members: none Marital status: / Current occupational status: disabled History of recent travel: No Current gender identity: Female Female Reproductive History: Date of last menstrual period: 06/27/20 Vitals/I&O/Wt Last Vital Signs Temp 99.4 F 07/10/20 12:50 Pulse 136 H 07/10/20 17:11 Resp 24 H 07/10/20 17:11 BP 120/85 07/10/20 17:11 Pulse Ox 98 07/10/20 17:11 Weight last 48 hrs Weight 39.916 kg Physical Exam Narrative: EXAM NARRATIVE: Seen in the ICU. On BiPAP. Looks more ill than the last time I saw her which was not that long ago. Will awaken and answer a few questions but is quick back to sleep and requires stimulation to stay awake. Some accessory muscle use noted. Some wheezing noted bilaterally. Chest expansion is equal bilaterally. She has a tachycardic regular rhythm. Soft, nontender. Both upper extremities are more puffy than the last time I saw her. She has some trace edema to the lower extremities. Skin however is extremely dry. Oropharynx is dry. She has evidence of chronic sun exposure. Angulo catheter is in place. No acute swelling of the joints noted. Data : 07/10/20 13:18 07/10/20 13:18 Other Labs: Laboratory Last Values WBC 6.1 10^3/uL (4.0-10.0) 07/10/20 13:18 RBC 4.15 10^6/uL (4.1-5.3) 07/10/20 13:18 Hgb 12.2 g/dL (11.5-15.3) 07/10/20 13:18 Hct 40.5 % (37.0-47.0) 07/10/20 13:18 MCV 97.6 fL (81-99) 07/10/20 13:18 MCH 29.4 pg (28.0-34.0) 07/10/20 13:18 MCHC 30.1 g/dL (30.0-36.0) 07/10/20 13:18 RDW 13.9 % (12.1-15.1) 07/10/20 13:18 Plt Count 230 10^3/cmm (130-400) 07/10/20 13:18 MPV 9.7 fL (7.4-10.4) 07/10/20 13:18 Neut % (Auto) 80.6 % 07/10/20 13:18 Lymph % (Auto) 10.0 % 07/10/20 13:18 [place] % (Auto) 6.7 % 07/10/20 13:18 Eos % (Auto) 1.5 % 07/10/20 13:18 Baso % (Auto) 0.7 % 07/10/20 13:18 Neut # (Auto) 4.90 10^3/uL (1.8-7.7) 07/10/20 13:18 Lymph # (Auto) 0.6 10^3/uL (0.8-4.8) L 07/10/20 13:18 [place] # (Auto) 0.4 10^3/uL (0.2-0.9) 07/10/20 13:18 Eos # (Auto) 0.1 10^3/uL (0.0-0.8) 07/10/20 13:18 Baso # (Auto) 0.0 10^3/uL (0.0-0.1) 07/10/20 13:18 Nucleated RBC % (auto) 0 % 07/10/20 13:18 Nucleated RBCs # 0.0 /100WBC 07/10/20 13:18 Specimen Type Arterial 07/10/20 15:40 Sample Site Radial, left 07/10/20 15:40 ABG pH 7.44 (7.35-7.45) 07/10/20 15:40 ABG pCO2 71.2 mmHg (35-45) H* 07/10/20 15:40 ABG pO2 57.8 mmHg (80.0-100.0) L 07/10/20 15:40 ABG HCO3 48.5 mmol/L (22-26) H 07/10/20 15:40 ABG O2 Saturation 94.0 07/10/20 15:40 ABG Base Excess 20.5 mmol/L (-2.0-2.0) H 07/10/20 15:40 Adrian Test Pos 07/10/20 15:40 A-a O2 Gradient 7.4 mmHg (5-10) 07/10/20 15:40 Hematocrit 37.3 % (37-47) 07/10/20 15:40 Hgb O2 Saturation 91.3 % (95-100) L 07/10/20 15:40 Carboxyhemoglobin 2.2 %THgb (0.4-20.1) 07/10/20 15:40 Methemoglobin 0.7 % (0.4-1.5) 07/10/20 15:40 Total Hemoglobin 12.2 g/dL (12-16) 07/10/20 15:40 Sodium 133.0 mmol/L (131-143) 07/10/20 15:40 Potassium 4.8 mmol/L (3.5-5.0) 07/10/20 15:40 Glucose 115.0 mg/dL (70-115) 07/10/20 15:40 Ionized Calcium 1.2 mmol/L (1.1-1.4) 07/10/20 15:40 O2 Delivery Device Bipap 07/10/20 15:40 O2 Liters/Min 3.0 % 07/10/20 13:25 FiO2 28.0 % 07/10/20 15:40 Die Maker Electronic ID Cak 07/10/20 15:40 Sodium 135 mmol/L (136-145) L 07/10/20 13:18 Potassium 5.2 mmol/L (3.5-5.1) H 07/10/20 13:18 Chloride 89 mmol/L (98-107) L 07/10/20 13:18 Carbon Dioxide 40 mmol/L (22-29) H 07/10/20 13:18 Anion Gap 11.2 (5-19) 07/10/20 13:18 BUN 8 mg/dL (6-20) 07/10/20 13:18 Creatinine 0.6 mg/dL (0.5-0.9) 07/10/20 13:18 GFR Calculation 102.7 mL/min (90-130) 07/10/20 13:18 Glucose 182 mg/dL (65-115) H 07/10/20 13:18 Calculated Osmolality 283 mOsm/kg (285-295) L 07/10/20 13:18 Calcium 8.3 mg/dL (8.5-10.5) L 07/10/20 13:18 Total Bilirubin 0.6 mg/dL (0.15-1.2) 07/10/20 13:18 AST 32 U/L (0-32) 07/10/20 13:18 ALT 29 U/L (0-33) 07/10/20 13:18 Alkaline Phosphatase 59 IU/L (35-105) 07/10/20 13:18 Creatine Kinase 50 U/L (26-192) 07/10/20 13:18 Total Protein 5.2 g/dL (6.6-8.7) L 07/10/20 13:18 Albumin 3.7 g/dL (3.5-5.2) 07/10/20 13:18 Globulin 1.5 g/dL (1.3-4.6) 07/10/20 13:18 Urine Color Yellow (Yellow) 07/10/20 13:56 Urine Appearance Clear (CLEAR) 07/10/20 13:56 Urine pH 5 (5-7) 07/10/20 13:56 Ur Specific [place] 1.025 (1.005-1.030) 07/10/20 13:56 Urine Protein Neg (Negative) 07/10/20 13:56 Urine Glucose (UA) Norm (Normal) 07/10/20 13:56 Urine Ketones Negative (Negative) 07/10/20 13:56 Urine Blood Neg (Negative) 07/10/20 13:56 Urine Nitrate Negative (Negative) 07/10/20 13:56 Urine Bilirubin 1+ (Negative) H 07/10/20 13:56 Urine Urobilinogen Norm mg/dL (Negative) 07/10/20 13:56 Ur Leukocyte Esterase Negative (Negative) 07/10/20 13:56 Micro: Microbiology 07/10/20 15:08 Blood Culture - Preliminary Blood SPECIMEN COLLECTED 07/10/20 15:08 Blood Culture - Preliminary Blood SPECIMEN COLLECTED A&P Assessment and plan (1) Acute on chronic respiratory failure with hypoxia and hypercapnia: Status: Acute (2) COPD (chronic obstructive pulmonary disease): Status: Chronic Qualifiers: COPD type: COPD with acute exacerbation Qualified Code(s): J44.1 - Chronic obstructive pulmonary disease with (acute) exacerbation (3) HIV (human immunodeficiency virus infection): Status: Chronic Qualifiers: HIV symptom status: asymptomatic Qualified Code(s): Z21 - Asymptomatic human immunodeficiency virus [HIV] infection status (4) Nicotine addiction: Status: Chronic Qualifiers: Nicotine product type: cigarettes Substance use status: other nicotine-induced disorder Qualified Code(s): F17.218 - Nicotine dependence, cigarettes, with other nicotine-induced disorders Additional A&P Information Inpatient admission Continue BiPAP therapy Inhaled and systemic steroids Nebulizer treatments IV fluids overnight Resume home medications otherwise Nicotine patch if needed Lovenox for DVT prophylaxis Diet has been ordered Reevaluate clinical status tomorrow Patient has frequently left AGAINST MEDICAL ADVICE as soon as her hypercapnia has resolved spite strong recommendations to maintain hospitalization and ongoing treatment here. This is the sixth admission this year. Nodded her head yes that she would want to be intubated if she were to require it therefore full code Supportive care otherwise Attestations Medical Necessity Statement*: Anticipated stay greater than 2 midnights if patient is agreeable to stay for management of acute on chronic hypercapnic and hypoxic respiratory failure. She has had repeated admissions this year thus far and would benefit from longer inpatient care to stabilize her respiratory status. Coding Level of Care Code Acute Materials Development Engineer for [place] Diagnoses Acute on chronic respiratory failure with hypoxia and hypercapnia J96.21; J96.22 COPD (chronic obstructive pulmonary disease) J44.1 COPD type: COPD with acute exacerbation HIV (human immunodeficiency virus infection) Z21 HIV symptom status: asymptomatic Nicotine addiction F17.218 Nicotine product type: cigarettes Substance use status: other nicotine-induced disorder
[2020-07-10] MEDS: sodium chloride 0.9% 1,000 ML 100 ML IV (17:49)
--- NOTE | 2020-07-10 21:16 | ECG_ITS ---
[facility] Test Date: 2020-07-10 Pat Name: Adore Broussard Department: Room: [id number] Gender: Female Center Lead Consultant: : 1960 Requested By: Doris Jc Order Number: [id number] Cherelle MD: Darren Blankenship M.D. Measurements Intervals [place] Rate: 122 P: 86 ME: 133 QRS: 87 QRSD: 85 T: 79 QT: 273 QTc: 390 Interpretive Statements SINUS TACHYCARDIA ABNORMAL RHYTHM ECG Compared to ECG 06/27/2020 15:23:35 No significant changes Electronically Signed On 07-11-2020 21:04:17 CDT by Darren Blankenship M.D. [id number]
[2020-07-10] MEDS: atorvastatin 40 mg Tablet PO (22:47)
[2020-07-10] MEDS: enoxaparin 30 mg/0.3 mL Syringe SUBCUT (22:47)
[2020-07-10] MEDS: acyclovir 400 mg Tablet PO (22:47)
[2020-07-10 22:56] LABS: Glucose Point of Care 102 mg/dL (70-110)
[2020-07-10] MEDS: ipratropium-albuterol 3 mL Neb INHALATION (23:10)
[2020-07-11] VITALS (82 sets, daily range): BP systolic 90–160; BP diastolic 62–85; PULSE 84–130; RESP 14–39; TEMP 36.5–37.1; O2SAT 70–100; BMI 16.6
[2020-07-11] MEDS: sodium chloride 0.9% 1,000 ML 100 ML IV ×2 (03:28→22:55)
[2020-07-11 05:01] LABS: ABG PH Result 7.35 (7.35-7.45); Arterial Blood Gas Hematocrit 34.5 % (37-47); Base Excess ABG 17.5 mmol/L (-2.0-2.0); Blood Gas Sample Site Brachial, right; Blood Gas Sample Type Arterial; HCO3 ABG 46.8 mmol/L (22-26); Oxygen Device NC; PO2 ABG 84.4 mmHg (80.0-100.0)
[2020-07-11 05:41] LABS: ABG PCO2 84.6 mmHg (35-45)
[2020-07-11] MEDS: ipratropium-albuterol 3 mL Neb INHALATION ×2 (08:30→15:20)
[2020-07-11] MEDS: budesonide 0.5 mg/2 mL Neb INHALATION (08:30)
[2020-07-11] MEDS: predniSONE 20 mg Tablet 40 MG PO (08:34)
[2020-07-11] MEDS: montelukast sodium 10 mg Tablet PO (08:35)
[2020-07-11] MEDS: acyclovir 400 mg Tablet PO ×3 (08:35→20:52)
[2020-07-11] MEDS: carvedilol 3.125 mg Tablet PO ×2 (08:35→17:26)
[2020-07-11] MEDS: pantoprazole DR 40 mg Tablet PO (08:35)
[2020-07-11] MEDS: docusate sodium 100 mg Capsule PO ×2 (08:35→17:26)
[2020-07-11] MEDS: aspirin 81 mg EC Tablet PO (08:35)
[2020-07-11] MEDS: NON-FORMULARY MEDICATION (Bictegrav-Emtricit-Tenofov Ala [Biktarvy] 50-200-25 mg tablet) 1 EACH PO (08:35)
[2020-07-11 08:38] LABS: Alanine Aminotransferase 25 U/L (0-33); Albumin Level 2.9 g/dL (3.5-5.2); Alkaline Phosphatase 50 IU/L (35-105); Anion Gap 2.8 (5-19); Aspartate Amino Transferase 26 U/L (0-32); Blood Urea Nitrogen 7 mg/dL (6-20); Calcium 7.7 mg/dL (8.5-10.5); Chloride 94 mmol/L (98-107); Creatine Phosphokinase 44 U/L (26-192); Globulin 1.9 g/dL (1.3-4.6); Glomerular Filtration Rate 102.7 mL/min (90-130); Glucose 122 mg/dL (65-115); Osmolality Calculated 283 mOsm/kg (285-295); Potassium 4.8 mmol/L (3.5-5.1); Sodium 137 mmol/L (136-145); Total Bilirubin 0.7 mg/dL (0.15-1.2); Total Protein 4.8 g/dL (6.6-8.7)
--- NOTE | 2020-07-11 08:45 | P.PN_ITS ---
Subjective Subjective: Interval history: Discussed with patient events of yesterday. She says carpets were steamed clean and that precipitated her worsening respiratory status. She had been struggling for about 24 hours when found. by home health. Breathing better, more swollen. No new complaints. Did not eat much for breakfast. Vitals/I&O/Wt Last Vital Signs Temp 98 F 07/11/20 05:45 Pulse 118 H 07/11/20 08:42 Resp 28 H 07/11/20 08:33 BP 160/85 07/11/20 05:00 Pulse Ox 98 07/11/20 08:41 07/10/20 07/11/20 07/11/20 22:59 06:59 14:59 Intake Total 1205 / 1205 320 / 320 Output Total 400 / 400 Balance 805 / 805 320 / 320 Weight last 48 hrs Weight 39.916 kg Weight 39.916 kg Physical Exam Narrative: EXAM NARRATIVE: Chronic and mildly acute ill appearance. Tachypneic, tachycardic, but both improved from yesterday. Prolonged expitory phase, only rare wheeze presently but shallow respirations. About to go back on bipap. Able to talk in short sentences. Abdomen soft. Hands and feet edematous. Speech clear, moves all extremities, no tremors. Data : 07/10/20 13:18 07/11/20 08:10 Micro: Microbiology 07/10/20 15:08 Blood Culture - Preliminary Blood SPECIMEN COLLECTED 07/10/20 15:08 Blood Culture - Preliminary Blood SPECIMEN COLLECTED A&P Assessment and plan (1) Acute on chronic respiratory failure with hypoxia and hypercapnia: Improved some but not as much as I would have expected Status: Acute (2) COPD (chronic obstructive pulmonary disease): Status: Chronic Qualifiers: COPD type: COPD with acute exacerbation Qualified Code(s): J44.1 - Chronic obstructive pulmonary disease with (acute) exacerbation (3) Protein-calorie malnutrition, moderate: Status: Acute (4) BMI less than 19,adult: Status: Chronic (5) HIV (human immunodeficiency virus infection): Status: Chronic Qualifiers: HIV symptom status: asymptomatic Qualified Code(s): Z21 - Asymptomatic human immunodeficiency virus [HIV] infection status (6) Nicotine addiction: 2 packs per week by current report Status: Chronic Qualifiers: Nicotine product type: cigarettes Substance use status: other nicotine-induced disorder Qualified Code(s): F17.218 - Nicotine dependence, cigarettes, with other nicotine-induced disorders Additional A&P Information Hyperglycemia from steroids, last A1c 5.7 Continue BiPAP theapy Inhaled and systemic steroids Nebulizer treatments Add doxycycline Stop IVFs Lasix IV On other home medications as available Change to regular diet Monitor need to add insulin Nicotine patch if needed Lovenox for DVT prophylaxis Supportive care otherwise If improving, will consider transfer to floor this afternoon Reports has bipap and oxygen at home Full code Plans discussed with patient Attestations Medical Necessity Statement*: Requires ongoing inpatient stay for continued respiratory management for acute on chronic respiratory failure with hypercapnia Coding Level of Care Code Acute Drip Box Tender for g Fwd Diagnoses Acute on chronic respiratory failure with hypoxia and hypercapnia J96.21; J96.22 COPD (chronic obstructive pulmonary disease) J44.1 COPD type: COPD with acute exacerbation Protein-calorie malnutrition, moderate E44.0 BMI less than 19,adult Z68.1 HIV (human immunodeficiency virus infection) Z21 HIV symptom status: asymptomatic Nicotine addiction F17.218 Nicotine product type: cigarettes Substance use status: other nicotine-induced disorder
[2020-07-11 08:48] LABS: Carbon Dioxide 45 mmol/L (22-29)
--- NOTE | 2020-07-11 11:02 | PC.NURSE ---
Pt refusing care Pt requested to be taken off Bipap. With the help of RT pt was placed on NC and gotten up to chair. PT then wanted the bedside commode. This nurse asked for pt to put her call light on when she is ready to get out of the chair and get on the commode. Pt refused any kind of help yelling, You will not help me or wipe my a. Pt was educated on being safe and the risk of falling during transfer. Pt continued to refuse help. Pt is also refusing accuchecks.
--- NOTE | 2020-07-11 11:15 | PC.RESP ---
Smoking Cessation and Pulmonary Rehab information sent to patient
[2020-07-11] MEDS: doxycycline 100 mg Tablet PO ×2 (11:50→17:26)
[2020-07-11] MEDS: FUROsemide 10 mg/mL SDV 2mL 20 MG IVP (11:50)
--- NOTE | 2020-07-11 13:46 | PC.CHAP ---
Pastoral Care Encounter/Spiritual Assessment Type of Contact [] Declined skirt panel assembler visit [] Patient/Family/Request visit [] Outpatient visit [] Follow-up visit [] Physician referral [] Code/Alert [] Routine visit [] Staff referral [] Actively dying [] Patient sleeping [] Family support [] [] Out of room [] Palliative care [] [] Receiving care in room [] Pre-surgical visit [] Trauma [] Long length of stay [xx] ICU visit [] Other: Relational/Emotional Strength [] Patient feels connected with others/family/visitors/staff [] Distress [] Loneliness/isolation [] Abandonment Spirituality of Patient [] Person of Thea [] Attends Hoahaoism of their Thea [] Believes in Prayer [] Reads Bible or Adventist materials [] There are Spiritual issues to be addressed And Rescue Fire Fighter Crash Fire Interventions [] Prayer [] Active listening [] Non-anxious presence [] Spiritual/emotional support [] Crisis/trauma care [] Spiritual counseling [] Bereavement support [] Provided bereavement packet [] Provided Bible/devotional materials [] Provided toy/stuffed animal, coloring book to patient or family member [] Provided Communion [] Anointing/Butler [] Salvation [] Completed spiritual assessment [] Other: Impact on Illness or Injury [] Angry [] Fearful [] Anxious [] Often cries [] Exhaustion [] Unable to work [] Unable to attend restorationist [] Unable to walk/stand [] Unable to read [] Unable to drive [] Unable to eat/drink [] Unable to sleep [] Unable to be with family [] Patient intubated [] Other: Summary Nurses said Do not visit. She can be violent . Time spent with patient
[2020-07-11] MEDS: sulfamethoxazole-trimeth DS 160-800 mg Tablet 1 TAB PO (15:10)
--- NOTE | 2020-07-11 18:11 | PC.NURSE ---
Shift Summary Pt has refused accuchecks, bp and bipap throughout shift. Pt to transfer to [place].
--- NOTE | 2020-07-11 19:03 | PC.NURSE ---
Report Report called to [place] JENKINS, on med surg. Home meds placed in chart.
[2020-07-11] MEDS: atorvastatin 40 mg Tablet PO (20:52)
[2020-07-11 21:15] LABS: Glucose Point of Care 236 mg/dL (70-110)
[2020-07-12] VITALS (15 sets, daily range): BP systolic 118–144; BP diastolic 69–76; PULSE 92–130; RESP 16–28; TEMP 36.4–37.1; O2SAT 94–99; BMI 18.1
[2020-07-12 03:43] LABS: Glucose Point of Care 79 mg/dL (70-110)
[2020-07-12 06:33] LABS: Glucose Point of Care 183 mg/dL (70-110)
[2020-07-12 08:07] LABS: Blood Urea Nitrogen 10 mg/dL (6-20); Calcium 7.9 mg/dL (8.5-10.5); Carbon Dioxide 35 mmol/L (22-29); Chloride 93 mmol/L (98-107); Glomerular Filtration Rate 85.9 mL/min (90-130); Glucose 148 mg/dL (65-115); Osmolality Calculated 284 mOsm/kg (285-295); Sodium 136 mmol/L (136-145)
[2020-07-12 08:09] LABS: Anion Gap 11.9 (5-19); Potassium 3.9 mmol/L (3.5-5.1)
[2020-07-12] MEDS: docusate sodium 100 mg Capsule PO ×2 (09:13→18:22)
[2020-07-12] MEDS: acyclovir 400 mg Tablet PO ×3 (09:13→20:15)
[2020-07-12] MEDS: pantoprazole DR 40 mg Tablet PO (09:14)
[2020-07-12] MEDS: predniSONE 20 mg Tablet 40 MG PO (09:14)
[2020-07-12] MEDS: carvedilol 3.125 mg Tablet PO ×2 (09:14→18:23)
[2020-07-12] MEDS: montelukast sodium 10 mg Tablet PO (09:14)
[2020-07-12] MEDS: potassium chloride ER 10 mEq Tablet PO (09:14)
[2020-07-12] MEDS: doxycycline 100 mg Tablet PO ×2 (09:14→18:22)
[2020-07-12] MEDS: aspirin 81 mg EC Tablet PO (09:14)
[2020-07-12] MEDS: NON-FORMULARY MEDICATION (Bictegrav-Emtricit-Tenofov Ala [Biktarvy] 50-200-25 mg tablet) 1 EACH PO (09:15)
[2020-07-12 10:47] LABS: Glucose Point of Care 116 mg/dL (70-110)
[2020-07-12] MEDS: ipratropium-albuterol 3 mL Neb INHALATION ×3 (11:05→19:50)
[2020-07-12] MEDS: FUROsemide 20 mg Tablet PO (16:14)
[2020-07-12 16:41] LABS: Glucose Point of Care 314 mg/dL (70-110)
[2020-07-12 19:41] LABS: Glucose Point of Care 325 mg/dL (70-110)
--- NOTE | 2020-07-12 19:46 | PM.PN ---
Subjective Subjective: Interval history: Overall breathing better but not quite back at her usual baseline. Wheezing, short of breath with minimal exertion. Refused IV replacement. Vitals/I&O/Wt Last Vital Signs Temp 98.7 F 07/12/20 19:31 Pulse 130 H 07/12/20 19:31 Resp 18 07/12/20 19:31 BP 127/75 07/12/20 19:31 Pulse Ox 96 07/12/20 19:31 07/12/20 07/12/20 07/12/20 06:59 14:59 22:59 Intake Total 1006.667 / 2513.334 360 / 360 120 / 480 Output Total 1350 / 1350 500 / 500 Balance -343.333 / 1163.334 -140 / -140 120 / -20 Weight last 48 hrs Weight 43.658 kg Weight 39.916 kg Physical Exam Narrative: EXAM NARRATIVE: Chronic and mildly acute ill appearance. Less tachypneic, tachycardic, Prolonged expitory phase, some increase in wheezing, accessory muscle use. Abdomen soft. Speech clear, moves all extremities, no tremors. Decrease in peripheral edema. Data : 07/10/20 13:18 07/12/20 06:39 Micro: Microbiology 07/10/20 15:08 Blood Culture - Preliminary Blood 07/10/20 15:08 Blood Culture - Preliminary Blood NEGATIVE TO DATE A&P Assessment and plan (1) Acute on chronic respiratory failure with hypoxia and hypercapnia: Improved some but not as much as I would have expected Status: Acute (2) COPD (chronic obstructive pulmonary disease): Status: Chronic (3) Protein-calorie malnutrition, moderate: Status: Acute (4) BMI less than 19,adult: Status: Chronic (5) HIV (human immunodeficiency virus infection): Status: Chronic Qualifiers: HIV symptom status: asymptomatic Qualified Code(s): Z21 - Asymptomatic human immunodeficiency virus [HIV] infection status (6) Nicotine addiction: 2 packs per week by current report Status: Chronic Qualifiers: Nicotine product type: cigarettes Substance use status: other nicotine-induced disorder Qualified Code(s): F17.218 - Nicotine dependence, cigarettes, with other nicotine-induced disorders Additional A&P Information Hyperglycemia from steroids, last A1c 5.7 BiPAP at night Inhaled and systemic steroids Nebulizer treatments On doxycycline Lasix transition to by mouth On other home medications as available Regular diet On insulin as needed for steroid-induced hyperglycemia Nicotine patch if needed Lovenox for DVT prophylaxis Supportive care otherwise Reports has bipap and oxygen at home; plan is for discharge home when improved from a respiratory standpoint Full code Plans discussed with patient and she was given an opportunity to ask questions Attestations Medical Necessity Statement*: Requires ongoing inpatient stay for continued respiratory and other management as noted above. At high risk of rapid clinical respiratory decline. Coding Level of Care Code Acute Construction Or Leak Gang Laborer for Chg Fwd Diagnoses Acute on chronic respiratory failure with hypoxia and hypercapnia J96.21; J96.22 COPD (chronic obstructive pulmonary disease) J44.9 Protein-calorie malnutrition, moderate E44.0 BMI less than 19,adult Z68.1 HIV (human immunodeficiency virus infection) Z21 HIV symptom status: asymptomatic Nicotine addiction F17.218 Nicotine product type: cigarettes Substance use status: other nicotine-induced disorder
[2020-07-12] MEDS: budesonide 0.5 mg/2 mL Neb INHALATION (19:50)
[2020-07-12] MEDS: atorvastatin 40 mg Tablet PO (20:15)
[2020-07-12] MEDS: enoxaparin 30 mg/0.3 mL Syringe SUBCUT (20:15)
[2020-07-13] VITALS (16 sets, daily range): BP systolic 110–157; BP diastolic 60–84; PULSE 88–122; RESP 17–24; TEMP 36.6–37; O2SAT 92–97
[2020-07-13] MEDS: ipratropium-albuterol 3 mL Neb INHALATION ×2 (04:35→10:25)
[2020-07-13 06:37] LABS: Glucose Point of Care 265 mg/dL (70-110)
[2020-07-13] MEDS: montelukast sodium 10 mg Tablet PO (08:37)
[2020-07-13] MEDS: NON-FORMULARY MEDICATION (Bictegrav-Emtricit-Tenofov Ala [Biktarvy] 50-200-25 mg tablet) 1 EACH PO (08:37)
[2020-07-13] MEDS: aspirin 81 mg EC Tablet PO (08:38)
[2020-07-13] MEDS: doxycycline 100 mg Tablet PO ×2 (08:38→17:50)
[2020-07-13] MEDS: carvedilol 3.125 mg Tablet PO ×2 (08:38→17:50)
[2020-07-13] MEDS: pantoprazole DR 40 mg Tablet PO (08:39)
[2020-07-13] MEDS: potassium chloride ER 10 mEq Tablet PO (08:39)
[2020-07-13] MEDS: predniSONE 20 mg Tablet 30 MG PO (08:39)
[2020-07-13] MEDS: FUROsemide 20 mg Tablet PO (08:40)
[2020-07-13] MEDS: docusate sodium 100 mg Capsule PO ×2 (08:40→17:50)
[2020-07-13] MEDS: acyclovir 400 mg Tablet PO ×3 (08:43→20:00)
[2020-07-13] MEDS: albuterol 8 gm MDI 2 PUFF INHALATION ×3 (09:12→19:53)
--- NOTE | 2020-07-13 10:12 | P.DS_ITS ---
Discharge Providers Date of Admission: 07/10/20 15:29 Date of Discharge: July 13, 2020 Attending Provider at Admission: Doris Jc MD Attending Provider at Discharge: Doris Jc MD Primary Care Provider: Ta Salas MD Diagnoses at Discharge Discharge Diagnosis (1) Acute on chronic respiratory failure with hypoxia and hypercapnia: Status: Acute (2) COPD (chronic obstructive pulmonary disease): Status: Chronic (3) Protein-calorie malnutrition, moderate: Status: Acute (4) BMI less than 19,adult: Status: Chronic (5) HIV (human immunodeficiency virus infection): Status: Chronic Qualifiers: HIV symptom status: asymptomatic Qualified Code(s): Z21 - Asymptomatic human immunodeficiency virus [HIV] infection status (6) Nicotine addiction: Status: Chronic Qualifiers: Nicotine product type: cigarettes Substance use status: other nicotine- induced disorder Qualified Code(s): F17.218 - Nicotine dependence, cigarettes, with other nicotine-induced disorders Reason for Visit Reason for Visit: SOB Discharge Data Data Completed and Pending: Completed Studies During Hospitalization Category Date Time Status XR chest 1V [place] [id number] Stat Exams 07/10/20 13:22 Completed Pending at discharge Category Date Time Status Blood Culture Sta t Lab 07/10/20 15:08 Results Laboratory Last Values WBC 6.1 10^3/uL (4.0- 10.0) 07/10/20 13:18 RBC 4.15 10^6/uL (4.1 -5.3) 07/10/20 13:18 Hgb 12.2 g/dL (11.5-1 5.3) 07/10/20 13:18 Hct 40.5 % (37.0-47.0 ) 07/10/20 13:18 MCV 97.6 fL (81-99) 07/10/20 13:18 MCH 29.4 pg (28.0-34. 0) 07/10/20 13:18 MCHC 30.1 g/dL (30.0-3 6.0) 07/10/20 13:18 RDW 13.9 % (12.1-15.1 ) 07/10/20 13:18 Plt Count 230 10^3/cmm (130 -400) 07/10/20 13:18 MPV 9.7 fL (7.4-10.4) 07/10/20 13:18 Neut % (Auto) 80.6 % 07/10/20 13:18 Lymph % (Auto) 10.0 % 07/10/20 13:18 [place] % (Auto) 6.7 % 07/10/20 13:18 Eos % (Auto) 1.5 % 07/10/20 13:18 Baso % (Auto) 0.7 % 07/10/20 13:18 Neut # (Auto) 4.90 10^3/uL (1.8 -7.7) 07/10/20 13:18 Lymph # (Auto) 0.6 10^3/uL (0.8- 4.8) L 07/10/20 13:18 [place] # (Auto) 0.4 10^3/uL (0.2- 0.9) 07/10/20 13:18 Eos # (Auto) 0.1 10^3/uL (0.0- 0.8) 07/10/20 13:18 Baso # (Auto) 0.0 10^3/uL (0.0- 0.1) 07/10/20 13:18 Nucleated RBC % (a uto) 0 % 07/10/20 13:18 Nucleated RBCs # 0.0 /100WBC 07/10/20 13:18 Specimen Type Arterial 07/11/20 04:40 Sample Site Brachial, right 07/11/20 04:40 ABG pH 7.35 (7.35-7.45) 07/11/20 04:40 ABG pCO2 84.6 mmHg (35-45) H* 07/11/20 04:40 ABG pO2 84.4 mmHg (80.0-1 00.0) 07/11/20 04:40 ABG HCO3 46.8 mmol/L (22-2 6) H 07/11/20 04:40 ABG O2 Saturation 94.0 07/10/20 15:40 ABG Base Excess 17.5 mmol/L (-2.0 -2.0) H 07/11/20 04:40 Adrian Test N/a 07/11/20 04:40 A-a O2 Gradient 7.4 mmHg (5-10) 07/10/20 15:40 Hematocrit 34.5 % (37-47) L 07/11/20 04:40 Hgb O2 Saturation 91.3 % (95-100) L 07/10/20 15:40 Carboxyhemoglobin 2.2 %THgb (0.4-20 .1) 07/10/20 15:40 Methemoglobin 0.7 % (0.4-1.5) 07/10/20 15:40 Total Hemoglobin 12.2 g/dL (12-16) 07/10/20 15:40 Sodium 133.0 mmol/L (131 -143) 07/10/20 15:40 Potassium 4.8 mmol/L (3.5-5 .0) 07/10/20 15:40 Glucose 115.0 mg/dL (70-1 15) 07/10/20 15:40 Ionized Calcium 1.2 mmol/L (1.1-1 .4) 07/10/20 15:40 O2 Delivery Device Nc 07/11/20 04:40 O2 Liters/Min 3.0 % 07/11/20 04:40 FiO2 28.0 % 07/10/20 15:40 Film Editor Supervisor ID Kemar 07/11/20 04:40 Sodium 136 mmol/L (136-1 45) 07/12/20 06:39 Potassium 3.9 mmol/L (3.5-5 .1) 07/12/20 06:39 Chloride 93 mmol/L (98-107 ) L 07/12/20 06:39 Carbon Dioxide 35 mmol/L (22-29) H 07/12/20 06:39 Anion Gap 11.9 (5-19) 07/12/20 06:39 BUN 10 mg/dL (6-20) 07/12/20 06:39 Creatinine 0.7 mg/dL (0.5-0. 9) 07/12/20 06:39 GFR Calculation 85.9 mL/min (90-1 30) L 07/12/20 06:39 Glucose 148 mg/dL (65-115 ) H 07/12/20 06:39 POC Glucose 265 mg/dL (70-110 ) H 07/13/20 06:25 Calculated Osmolal ity 284 mOsm/kg (285- 295) L 07/12/20 06:39 Calcium 7.9 mg/dL (8.5-10 .5) L 07/12/20 06:39 Phosphorus 3.0 mg/dL (2.5-4. 5) 07/11/20 08:10 Magnesium 2.0 mg/dL (1.7-2. 3) 07/11/20 08:10 Total Bilirubin 0.7 mg/dL (0.15-1 .2) 07/11/20 08:10 AST 26 U/L (0-32) 07/11/20 08:10 ALT 25 U/L (0-33) 07/11/20 08:10 Alkaline Phosphata se 50 IU/L (35-105) 07/11/20 08:10 Creatine Kinase 44 U/L (26-192) 07/11/20 08:10 Creatine Kinase Cancelled 07/11/20 08:10 Total Protein 4.8 g/dL (6.6-8.7 ) L 07/11/20 08:10 Albumin 2.9 g/dL (3.5-5.2 ) L 07/11/20 08:10 Globulin 1.9 g/dL (1.3-4.6 ) 07/11/20 08:10 Urine Color Yellow (Yellow) 07/10/20 13:56 Urine Appearance Clear (CLEAR) 07/10/20 13:56 Urine pH 5 (5-7) 07/10/20 13:56 Ur Specific Gravit y 1.025 (1.005-1.0 30) 07/10/20 13:56 Urine Protein Neg (Negative) 07/10/20 13:56 Urine Glucose (UA) Norm (Normal) 07/10/20 13:56 Urine Ketones Negative (Negati ve) 07/10/20 13:56 Urine Blood Neg (Negative) 07/10/20 13:56 Urine Nitrate Negative (Negati ve) 07/10/20 13:56 Urine Bilirubin 1+ (Negative) H 07/10/20 13:56 Urine Urobilinogen Norm mg/dL (Negat pham) 07/10/20 13:56 Ur Leukocyte [place] ase Negative (Negati ve) 07/10/20 13:56 Vitals: Last Vital Signs Temp 98.0 F 07/13/20 07:47 Pulse 110 H 07/13/20 09:20 Resp 24 H 07/13/20 09:20 BP 157/84 07/13/20 07:47 Pulse Ox 92 07/13/20 09:20 Discharge Plan Discharge Patient Disposition: Home Condition: Stable Prescriptions: New prednisone 20 mg Tablet 30 mg PO DAILY Qty: 20 RF: 0 doxycycline monohydrate 100 mg Tablet 100 mg PO BID Qty: 14 RF: 0 Continued sulfamethoxazole-trimethoprim [Bactrim] 400-80 mg tablet See Rx Instructions .ROUTE .COMPLEX RF: 0 montelukast [Singulair] 10 mg tablet 10 mg PO DAILY RF: 0 albuterol sulfate [ProAir HFA] 90 mcg/actuation HFA aerosol inhaler 2 puff INHALATION Q6H PRN (Reason: Shortness Of Breath) RF: 0 Biktarvy 50-200-25 mg tablet 1 tab PO DAILY RF: 0 atorvastatin 40 mg tablet 40 mg PO BEDTIME RF: 0 acyclovir 400 mg Tablet 400 mg PO TID RF: 0 aspirin 81 mg Tablet,Delayed Release (Dr/Ec) 81 mg PO DAILY RF: 0 carvedilol 3.125 mg tablet 3.125 mg PO BID RF: 0 prednisone 10 mg tablet See Rx Instructions .ROUTE .COMPLEX Qty: 60 RF: 0 furosemide [Lasix] 20 mg tablet 20 mg PO DAILY PRN (Reason: Edema) Qty: 30 RF: 0 Spiriva with HandiHaler 18 mcg Capsule, W/Inhalation Device 1 cap INHALATION DAILY RF: 0 budesonide-formoterol [Symbicort] 160-4.5 mcg/actuation Hfa Aerosol Inhaler 2 puff INHALATION BID RF: 0 ipratropium-albuterol 0.5 mg-3 mg(2.5 mg base)/3 mL Solution For Nebulization 3 ml INHALATION QID PRN (Reason: Shortness Of Breath) Qty: 180 RF: 0 (DME) glucometer See Rx Instructions .Route .MEDSUPPLY Qty: 1 RF: 0 insulin aspart U-100 [Novolog Flexpen U-100 Insulin] 100 unit/mL (3 mL) insulin pen See Rx Instructions .ROUTE .COMPLEX Qty: 15 RF: 0 pantoprazole 40 mg tablet,delayed release (DR/EC) 40 mg PO DAILY RF: 0 Combivent Respimat 20-100 mcg/actuation mist 1 puff inhalation Q6H PRN (Reason: Shortness Of Breath) RF: 0 Discharge Orders: Discharge Order (Routine); Ordered 07/13/20 Ordered By: Doris Jc Referrals: Ta Salas MD [Primary Care Provider] - 4-7 days (Please call the office first thing Tuesday morning to schedule an appointment for 4 to 7 days.) Discharge Diet: Advance as tolerated Discharge Activity: Resume usual activity Patient Instructions: How to Stop Smoking (DC), Opioid Safety Discharge Attestations Time Spent in Discharge Care*: less than 30 min Coding Level of Care Code Acute Chg FW DC note Diagnoses Acute on chronic respiratory failure with hypoxia and hypercapnia J96.21; J96.22 COPD (chronic obstructive pulmonary disease) J44.9 Protein-calorie malnutrition, moderate E44.0 BMI less than 19,adult Z68.1 HIV (human immunodeficiency virus infection) Z21 HIV symptom status: asymptomatic Nicotine addiction F17.218 Nicotine product type: cigarettes Substance use status: other nicotine-induced disorder
[2020-07-13 11:03] LABS: Glucose Point of Care 42 mg/dL (70-110)
[2020-07-13 11:39] LABS: Glucose Point of Care 98 mg/dL (70-110)
--- NOTE | 2020-07-13 11:40 | P.PN_ITS ---
Subjective Subjective: Interval history: Patient indicated that she was going to leave AMA. I worked on the discharge paperwork. After this was complete, patient became more acutely short of breath and dizzy. She did not feel well. Blood sugar was checked and was 42. She had received insulin after her morning blood sugar of 265. She has had a drop in blood sugars before but not quite this low on review in the records. She states that she did eat breakfast. She feels more short of breath. Discharge has been canceled. She has agreed to allow us to replace the peripheral IV and do some additional evaluation and treatment. Vitals/I&O/Wt Last Vital Signs Temp 98.0 F 07/13/20 07:47 Pulse 122 H 07/13/20 10:31 Resp 24 H 07/13/20 10:31 BP 157/84 07/13/20 07:47 Pulse Ox 96 07/13/20 10:31 07/12/20 07/13/20 07/13/20 22:59 06:59 14:59 Intake Total 120 / 480 240 / 240 Output Total 600 / 1100 Balance 120 / -20 -600 / -620 240 / 240 positive fluid balance for hospital stay 1148.334 ml Weight last 48 hrs Weight 44.135 kg Weight 43.658 kg Physical Exam Narrative: EXAM NARRATIVE: Patient actually looks more ill-appearing today than she did yesterday but she is dressed and ready to go. My limb in the room she becomes a little diaphoretic and dizzy. Blood sugar at x42. She was given some juice. Repeat blood sugar at 98. She had tachypnea, pursed lip breathing, some supraclavicular retractions. Shallow respirations, tight wheeze decreased at the bases, tachycardic rhythm, abdomen is soft, continues to have peripheral edema Data : 07/13/20 11:50 07/13/20 11:50 Other Labs: Laboratory Tests 07/12/20 07/12/20 07/12/20 10:31 16:38 19:34 POC Glucose 116 H 314 H 325 H 07/13/20 07/13/20 07/13/20 06:25 10:48 11:36 POC Glucose 265 H 42 L 98 07/13/20 16:46 POC Glucose 281 H Micro: Microbiology 07/10/20 15:08 Blood Culture - Preliminary Blood A&P Assessment and plan (1) Hypoglycemia: Symptomatic Status: Acute (2) Acute on chronic respiratory failure with hypoxia and hypercapnia: Status: Acute (3) COPD (chronic obstructive pulmonary disease): Status: Chronic (4) Sinus tachycardia: Chronic secondary to respiratory disease Status: Acute (5) Protein-calorie malnutrition, moderate: Status: Acute (6) BMI less than 19,adult: Status: Chronic (7) HIV (human immunodeficiency virus infection): Status: Chronic Qualifiers: HIV symptom status: asymptomatic Qualified Code(s): Z21 - Asymptomatic human immunodeficiency virus [HIV] infection status (8) Nicotine addiction: 2 packs per week by current report Status: Chronic Qualifiers: Nicotine product type: cigarettes Substance use status: other nicotine- induced disorder Qualified Code(s): F17.218 - Nicotine dependence, cigarettes, with other nicotine-induced disorders Additional A&P Information Hyperglycemia from steroids, last A1c 5.7 Cancel plans for discharge EKG and serial cardiac enzymes On low-dose sliding scale Encourage patient to eat breakfast Increase prednisone back to 40 Would probably benefit from a dose of IV Lasix if she will allow it, otherwise has oral Lasix BiPAP at night and as needed if she will wear it She declines inhaled steroids here Nebulizer treatments Discussed with patient that she can in fact get too much albuterol. She was wanting her inhaler along with the nebulizer treatment at the same time as that is what she uses at home. On doxycycline On other home medications as available Regular diet On insulin as needed for steroid-induced hyperglycemia Nicotine patch if needed Lovenox for DVT prophylaxis Supportive care otherwise Reports has bipap and oxygen at home; plan is for discharge home Full code Plans discussed with patient and she was given an opportunity to ask questions Attestations Medical Necessity Statement*: Requires ongoing inpatient stay for management of acute on chronic respiratory failure and this morning also with hypoglycemia that was symptomatic. Plans are as noted. Coding Level of Care Code Acute Registration Coordinator for [place] Dickerson Diagnoses Hypoglycemia E16.2 Acute on chronic respiratory failure with hypoxia and hypercapnia J96.21; J96.22 COPD (chronic obstructive pulmonary disease) J44.9 Sinus tachycardia R00.0 Protein-calorie malnutrition, moderate E44.0 BMI less than 19,adult Z68.1 HIV (human immunodeficiency virus infection) Z21 HIV symptom status: asymptomatic Nicotine addiction F17.218 Nicotine product type: cigarettes Substance use status: other nicotine-induced disorder
[2020-07-13 12:03] LABS: Basophils % 0.4 %; Eosinophils # 0.1 10^3/uL (0.0-0.8); Eosinophils % 1.1 %; Hematocrit 36.2 % (37.0-47.0); Hemoglobin 11.3 g/dL (11.5-15.3); Lymphocytes # 0.4 10^3/uL (0.8-4.8); Lymphocytes % 8.4 %; Mean Corpuscular HGB Conc 31.2 g/dL (30.0-36.0); Mean Corpuscular Hemoglobin 29.4 pg (28.0-34.0); Mean Corpuscular Volume 94.3 fL (81-99); Mean Platelet Volume 10.5 fL (7.4-10.4); Monocytes # 0.2 10^3/uL (0.2-0.9); Neutrophils % 85.5 %; Nucleated Red Blood Cells % 0 %; Platelet Count 131 10^3/cmm (130-400); Red Blood Count 3.84 10^6/uL (4.1-5.3); Red Cell Distribution Width 14.1 % (12.1-15.1); White Blood Count 5.3 10^3/uL (4.0-10.0)
[2020-07-13 12:58] LABS: Blood Urea Nitrogen 10 mg/dL (6-20); Calcium 7.8 mg/dL (8.5-10.5); Carbon Dioxide 38 mmol/L (22-29); Chloride 93 mmol/L (98-107); Glomerular Filtration Rate 56.9 mL/min (90-130); Glucose 142 mg/dL (65-115); NT Pro B Type Natriuretic Pept 1143 pg/mL (0-125); Osmolality Calculated 285 mOsm/kg (285-295); Sodium 137 mmol/L (136-145)
[2020-07-13 13:13] LABS: Troponin(5th) Baseline 55 ng/L (0-10)
[2020-07-13 13:14] LABS: Anion Gap 9.7 (5-19); Potassium 3.7 mmol/L (3.5-5.1)
--- NOTE | 2020-07-13 13:38 | ECG_ITS ---
[facility] ED Test Date: 2020-07-13 Pat Name: Adore Broussard Department: Room: 277 Gender: Female Balance Clerk: : 1960 Requested By: Doris Jc Order Number: [id number] Cherelle MD: Marianna Guadalupe M.D. Measurements Intervals [place] Rate: 88 P: 82 ND: 148 QRS: 88 QRSD: 91 T: 77 QT: 370 QTc: 448 Interpretive Statements SINUS RHYTHM WITH OCCASIONAL SUPRAVENTRICULAR PREMATURE COMPLEXES POSSIBLE LEFT ATRIAL ENLARGEMENT [-0.1mV P WAVE IN V1/V2] Compared to ECG 07/10/2020 23:02:54 Sinus tachycardia no longer present Electronically Signed On 07-15-2020 12:41:20 CDT by Marianna Guadalupe M.D. [email or web address] [email or web address] issaqu[facility] hospitalBenhauerjoint [facility].[employer]/store/OM/[id number]
[2020-07-13 15:31] LABS: Lactic Sepsis W/Reflex 0.9 mmol/L (0.5-2.2)
[2020-07-13 15:32] LABS: Troponin 5 2HR 48.64 ng/L (0-10)
--- NOTE | 2020-07-13 15:48 | PC.RESP ---
Therapist not notified of need for procedure, as regular therapist had left for day.
[2020-07-13 15:59] LABS: Troponin 5 2HR Delta -6.36 ABS# (0-10)
[2020-07-13 16:53] LABS: Glucose Point of Care 281 mg/dL (70-110)
--- NOTE | 2020-07-13 17:38 | ECG_ITS ---
[facility] ED Test Date: 2020-07-13 Pat Name: Adore Broussard Department: Room: 277 Gender: Female Foot Caster: : 1960 Requested By: Doris Jc Order Number: [id number] Cherelle MD: Marianna Guadalupe M.D. Measurements Intervals [place] Rate: 117 P: 83 NC: 124 QRS: 88 QRSD: 81 T: 74 QT: 301 QTc: 421 Interpretive Statements SINUS TACHYCARDIA POSSIBLE LEFT ATRIAL ENLARGEMENT [-0.1mV P WAVE IN V1/V2] ABNORMAL RHYTHM ECG Compared to ECG 07/13/2020 13:40:23 Sinus rhythm no longer present Electronically Signed On 07-15-2020 12:40:20 CDT by Marianna Guadalupe M.D. [email or web address] Energyj[facility] hospitalAr[facility].[employer]&Get/store/[id number]
[2020-07-13 18:00] LABS: Troponin 5 6HR 37.94 ng/L (0-10)
[2020-07-13 19:49] LABS: Glucose Point of Care 284 mg/dL (70-110)
[2020-07-13] MEDS: atorvastatin 40 mg Tablet PO (20:00)
[2020-07-13] MEDS: enoxaparin 30 mg/0.3 mL Syringe SUBCUT (20:15)
[2020-07-13 23:02] LABS: Glucose Point of Care 62 mg/dL (70-110)
[2020-07-13 23:21] LABS: Glucose Point of Care 65 mg/dL (70-110)
[2020-07-13] MEDS: dextrose 50% syringe 50 mL 25 ML IVP (23:34)
[2020-07-14] VITALS (11 sets, daily range): BP systolic 106–124; BP diastolic 64–74; PULSE 101–124; RESP 17–22; TEMP 36.4–37.2; O2SAT 94–98
[2020-07-14 00:09] LABS: Glucose Point of Care 179 mg/dL (70-110)
[2020-07-14 01:44] LABS: Glucose Point of Care 191 mg/dL (70-110)
[2020-07-14 03:59] LABS: Glucose Point of Care 166 mg/dL (70-110)
[2020-07-14] MEDS: albuterol 8 gm MDI 2 PUFF INHALATION (05:22)
[2020-07-14 06:16] LABS: Anion Gap 7.9 (5-19); Blood Urea Nitrogen 12 mg/dL (6-20); Calcium 7.8 mg/dL (8.5-10.5); Carbon Dioxide 40 mmol/L (22-29); Chloride 93 mmol/L (98-107); Glomerular Filtration Rate 73.7 mL/min (90-130); Glucose 151 mg/dL (65-115); Osmolality Calculated 287 mOsm/kg (285-295); Potassium 3.9 mmol/L (3.5-5.1); Sodium 137 mmol/L (136-145)
[2020-07-14 06:51] LABS: Glucose Point of Care 141 mg/dL (70-110)
[2020-07-14] MEDS: potassium chloride ER 10 mEq Tablet PO (08:06)
[2020-07-14] MEDS: carvedilol 3.125 mg Tablet PO (08:06)
[2020-07-14] MEDS: montelukast sodium 10 mg Tablet PO (08:06)
[2020-07-14] MEDS: FUROsemide 20 mg Tablet PO (08:06)
[2020-07-14] MEDS: aspirin 81 mg EC Tablet PO (08:06)
[2020-07-14] MEDS: doxycycline 100 mg Tablet PO (08:06)
[2020-07-14] MEDS: predniSONE 20 mg Tablet 40 MG PO (08:07)
[2020-07-14] MEDS: ipratropium-albuterol 3 mL Neb INHALATION ×3 (08:22→14:06)
[2020-07-14 08:23] LABS: Glucose Point of Care 213 mg/dL (70-110)
--- NOTE | 2020-07-14 10:51 | FL_ITS ---
WS: [id number] MODIFIED BARIUM SWALLOW TECHNIQUE: Modified barium swallow with speech therapy using multiple consistencies. FLUOROSCOPY TIME: 2.7 minutes. CLINICAL INFORMATION: Oropharyngeal dysphagia COMPARISON: None. FINDINGS: Multiple consistencies utilized. No evidence of flakito aspiration. Penetration with thin liquids. Emigdio y spillage with pooling in the vallecula. No difficulties with barium tablet. FL/FL barium swallow modifd [id number] IMPRESSION: 1. Penetration with thin liquids. No flakito aspiration. 2. Early spillage with pooling in the vallecula. 3. No difficulties with barium tablet
[2020-07-14 11:21] LABS: Glucose Point of Care 209 mg/dL (70-110)
--- NOTE | 2020-07-14 13:18 | PM.DCS ---
Discharge Providers Date of Admission: 07/10/20 15:29 Date of Discharge: July 14, 2020 Attending Provider at Admission: Doris Jc MD Attending Provider at Discharge: Nba Wagner MD Primary Care Provider: Ta Salas MD Diagnoses at Discharge Discharge Diagnosis (1) Hypoglycemia: Status: Acute (2) Acute on chronic respiratory failure with hypoxia and hypercapnia: Status: Acute (3) COPD (chronic obstructive pulmonary disease): Status: Chronic (4) Sinus tachycardia: Status: Acute (5) Protein-calorie malnutrition, moderate: Status: Acute (6) BMI less than 19,adult: Status: Chronic (7) HIV (human immunodeficiency virus infection): Status: Chronic Qualifiers: HIV symptom status: asymptomatic Qualified Code(s): Z21 - Asymptomatic human immunodeficiency virus [HIV] infection status (8) Nicotine addiction: Status: Chronic Qualifiers: Nicotine product type: cigarettes Substance use status: other nicotine-induced disorder Qualified Code(s): F17.218 - Nicotine dependence, cigarettes, with other nicotine-induced disorders Reason for Visit Reason for Visit: SOB Hospital Course Hospital Course This is a 59-year-old female with a past medical history of chronic hypercapnic respiratory failure secondary to COPD, at home BiPAP, 2 L oxygen dependent, smoker, history of HIV on Biktarvy, on prophylactic Bactrim, history of multiple admissions in the last 6 months, history of leaving AGAINST MEDICAL ADVICE, who presents to [facility] due to shortness of breath, decreased responsiveness Patient was admitted to [facility] for acute on chronic hypercapnic respiratory failure, PCO2 admission was 109, pH 7.26, received BiPAP therapy, clinically improved, placed on steroid therapy, antibiotic therapy and clinically monitored. Patient clinically improved, discharged on prednisone and doxycycline with close follow-up with pulmonary as outpatient. Of note patient reports issues with her home BiPAP machine, she told me that it does not blow out oxygen well, I was told by caseworker protective services that Irene has gone out to her home multiple times in the past, they have not found any significant issues, in addition to the information that I got was the compliance report showed that she has only use the BiPAP 2 out of 30 days, and she has been verbally abusive to [facility] staff. Irene does plan on going out with respiratory therapy to her home in the next few days. I discussed this with patient, advised of compliance, sure to have worsening shortness of breath come back to emergency room. Patient also had hypoglycemic episodes during her hospitalization, she does not have a diagnosis of type 2 diabetes, A1c 5.6, however does have some degree of insulin resistance and hyperglycemia secondary to chronic steroid use. Patient has required 20 to 30 units over 24-hour period during her hospitalization. Her hypoglycemic episodes seem to be associated with the nighttime dose of insulin, she seems to be more insulin na?ve. I have discharged her on a liberal insulin sliding scale, she should monitor her blood sugars 3 times daily, inject insulin 3 times daily with meals breakfast, lunch and dinner, do not give herself the nighttime insulin dose. I also advised patient that her insulin requirements will decrease as her prednisone taper reduces Physical Exam Const: COMMON NORMALS: no acute distress and patient oriented x3 HENMT: COMMON NORMALS: normocephalic HEAD & SCALP: normocephalic Neck/C-Spine: COMMON NORMALS: no JVD Resp: COMMON NORMALS: normal respiratory effort, No retractions and clear to auscultation bilaterally AUSCULTATION: clear to auscultation bilaterally Cardio: COMMON NORMALS: no JVD, regular rate, regular rhythm, S1 normal heart sound present and S2 normal heart sound present RATE: regular rate RHYTHM: regular rhythm HEART SOUNDS: S1 normal heart sound present and S2 normal heart sound present GI: COMMON NORMALS: Normal to inspection, nondistended, normoactive bowel sounds present, Soft to palpation, non-tender and No hepatosplenomegaly present PALPATION: Yes Soft to palpation and Yes No hepatosplenomegaly present Extremity: COMMON NORMALS: no pedal edema Neuro: COMMON NORMALS: patient oriented x3 Psych: COMMON NORMALS: mental status grossly normal Discharge Data Data Completed and Pending: Completed Studies During Hospitalization Category Date Time Status FL barium swallow modifd [id number] Stat Exams 07/14/20 10:51 Completed XR chest 1V wilda ble [id number] Stat Exams 07/10/20 13:22 Completed Pending at discharge Category Date Time Status Blood Culture Sta t Lab 07/10/20 15:08 Results Labs from last 24 hours 07/14/20 07/14/20 07/14/20 11:15 08:04 06:45 Sodium Potassium Chloride Carbon Dioxide Anion Gap BUN Creatinine GFR Calculation Glucose POC Glucose 209 H 213 H 141 H Calculated Osmolal ity Lactic Acid Calcium Troponin T 120 Min [place] Troponin T Troponin T Hi Sens 6Hr Troponin T Hi Sens 6Hr [place] 07/14/20 07/14/20 07/14/20 05:30 03:53 01:36 Sodium 137 Potassium 3.9 Chloride 93 L Carbon Dioxide 40 H Anion Gap 7.9 BUN 12 Creatinine 0.8 GFR Calculation 73.7 L Glucose 151 H POC Glucose 166 H 191 H Calculated Osmolal ity 287 Lactic Acid Calcium 7.8 L Troponin T 120 Min [place] Troponin T Troponin T Hi Sens 6Hr Troponin T Hi Sens 6Hr [place] 07/14/20 07/13/20 07/13/20 00:06 23:17 22:58 Sodium Potassium Chloride Carbon Dioxide Anion Gap BUN Creatinine GFR Calculation Glucose POC Glucose 179 H 65 L 62 L Calculated Osmolal ity Lactic Acid Calcium Troponin T 120 Min [place] Troponin T Troponin T Hi Sens 6Hr Troponin T Hi Sens 6Hr [place] 07/13/20 07/13/20 07/13/20 19:42 17:30 16:46 Sodium Potassium Chloride Carbon Dioxide Anion Gap BUN Creatinine GFR Calculation Glucose POC Glucose 284 H 281 H Calculated Osmolal ity Lactic Acid Calcium Troponin T 120 Min [place] Troponin T Troponin T Hi Sens 6Hr 37.94 H Troponin T Hi Sens 6Hr [place] -17.06 L 07/13/20 07/13/20 07/13/20 14:55 14:55 11:50 Sodium Potassium Chloride Carbon Dioxide Anion Gap BUN Creatinine GFR Calculation Glucose POC Glucose Calculated Osmolal ity Lactic Acid 0.9 Cancelled Calcium Troponin T 120 Min [place] 48.64 H Delta Troponin T -6.36 L Troponin T Hi Sens 6Hr Troponin T Hi Sens 6Hr Delta Vitals: Last Vital Signs Temp 97.6 F 07/14/20 11:24 Pulse 101 H 07/14/20 11:24 Resp 18 07/14/20 11:24 BP 121/74 07/14/20 11:24 Pulse Ox 96 07/14/20 11:24 Discharge Plan Discharge Patient Disposition: Home Condition: Stable Prescriptions: New prednisone 20 mg Tablet 30 mg PO DAILY Qty: 20 RF: 0 doxycycline monohydrate 100 mg Tablet 100 mg PO BID Qty: 14 RF: 0 Continued sulfamethoxazole-trimethoprim [Bactrim] 400-80 mg tablet See Rx Instructions .ROUTE .COMPLEX RF: 0 montelukast [Singulair] 10 mg tablet 10 mg PO DAILY RF: 0 albuterol sulfate [ProAir HFA] 90 mcg/actuation HFA aerosol inhaler 2 puff INHALATION Q6H PRN (Reason: Shortness Of Breath) RF: 0 Biktarvy 50-200-25 mg tablet 1 tab PO DAILY RF: 0 atorvastatin 40 mg tablet 40 mg PO BEDTIME RF: 0 acyclovir 400 mg Tablet 400 mg PO TID RF: 0 aspirin 81 mg Tablet,Delayed Release (Dr/Ec) 81 mg PO DAILY RF: 0 carvedilol 3.125 mg tablet 3.125 mg PO BID RF: 0 furosemide [Lasix] 20 mg tablet 20 mg PO DAILY PRN (Reason: Edema) Qty: 30 RF: 0 Spiriva with HandiHaler 18 mcg Capsule, W/Inhalation Device 1 cap INHALATION DAILY RF: 0 budesonide-formoterol [Symbicort] 160-4.5 mcg/actuation Hfa Aerosol Inhaler 2 puff INHALATION BID RF: 0 ipratropium-albuterol 0.5 mg-3 mg(2.5 mg base)/3 mL Solution For Nebulization 3 ml INHALATION QID PRN (Reason: Shortness Of Breath) Qty: 180 RF: 0 (DME) glucometer See Rx Instructions .Route .MEDSUPPLY Qty: 1 RF: 0 insulin aspart U-100 [Novolog Flexpen U-100 Insulin] 100 unit/mL (3 mL) insulin pen See Rx Instructions .ROUTE .COMPLEX Qty: 15 RF: 0 pantoprazole 40 mg tablet,delayed release (DR/EC) 40 mg PO DAILY RF: 0 Combivent Respimat 20-100 mcg/actuation mist 1 puff inhalation Q6H PRN (Reason: Shortness Of Breath) RF: 0 Discontinued prednisone 10 mg tablet See Rx Instructions .ROUTE .COMPLEX Qty: 60 RF: 0 Discharge Orders: Discharge Order (Routine); Ordered 07/14/20 Ordered By: Nba Wagner Referrals: Ta Salas MD [Primary Care Provider] - 4-7 days (PLEASE CALL WOUND CARE IN ORIENT FOR APPOINTMENT) Yamilex Bearden MD [Physician] - 07/21/20 1:00 pm (copd) Discharge Diet: Advance as tolerated Discharge Activity: Resume usual activity Patient Instructions: Doxycycline (By mouth), Prednisone (By mouth), How to Stop Smoking (DC), Opioid Safety Activity Restrictions/Additional Instructions: -You have elevated blood sugar secondary to prednisone use -Please inject based on sliding scale provided below: Fingerstick Blood Glucose Insulin Units 180-220 mg/dl 1 units/SQ 221-260 mg/dl 2 units/SQ 261-300 mg/dl 4 units/SQ 301-350 mg/dl 6 units/SQ 351-400 mg/dl 8 units/SQ greater than 400 mg/dl 10 units/SQ -Your insulin requirements will decrease as you stop insulin, so do not be surprised if you are requiring less insulin -Please inject yourself with insulin, subcut, only 3 times daily with meals, breakfast, lunch, dinner -Only inject insulin if you eat a meal, as hypoglycemia kills -If blood sugar greater than 500 come to the emergency room -If blood sugar less than 60, drink or juice or eat a hard candy and go to the emergency room -For your BiPAP concerns, Irene will come out to your home for assessment of the machine Discharge Attestations Time Spent in Discharge Care*: less than 30 min Status at Discharge: Cognitive status at discharge: cognitively intact, Behavioral status at discharge: other (Uncooperative ), Quality Metrics Clinical Quality Measures During this hospital stay, did patient experience: None Coding Level of Care Code Acute Chg FW DC note Diagnoses Hypoglycemia E16.2 Acute on chronic respiratory failure with hypoxia and hypercapnia J96.21; J96.22 COPD (chronic obstructive pulmonary disease) J44.9 Sinus tachycardia R00.0 Protein-calorie malnutrition, moderate E44.0 BMI less than 19,adult Z68.1 HIV (human immunodeficiency virus infection) Z21 HIV symptom status: asymptomatic Nicotine addiction F17.218 Nicotine product type: cigarettes Substance use status: other nicotine-induced disorder
[2020-07-14] MEDS: sulfamethoxazole-trimeth DS 160-800 mg Tablet 1 TAB PO (14:35)
== END 2020-07-14 15:26 | disposition home health service (06) | DRG 189 ==
LOC: ER 13:09 → ICU 16:58 → MEDSURG 07-11 19:39
PROVIDERS: Admitting Provider Hospitalist; Emergency Provider Family Medicine; PCP Family Medicine; Visit Provider Family Medicine
DX: J96.21 Acute and chronic respiratory failure with hypoxia (principal); J44.1 Chronic obstructive pulmonary disease with (acute) exacerbation; E44.0 Moderate protein-calorie malnutrition; Z68.1 Body mass index [BMI] 19.9 or less, adult; J96.22 Acute and chronic respiratory failure with hypercapnia; I50.9 Heart failure, unspecified; K21.9 Gastro-esophageal reflux disease without esophagitis; Z21 Asymptomatic human immunodeficiency virus [HIV] infection status; F17.210 Nicotine dependence, cigarettes, uncomplicated; R73.9 Hyperglycemia, unspecified; T38.0X5A Adverse effect of glucocorticoids and synthetic analogues, initial encounter; Z99.81 Dependence on supplemental oxygen; Z79.2 Long term (current) use of antibiotics; Z79.51 Long term (current) use of inhaled steroids; Z79.82 Long term (current) use of aspirin; Z79.4 Long term (current) use of insulin
CPT/HCPCS: 36415; 36416; 36600; 51701; 71045; 74230; 80048; 80051; 80053; 81003; 82330; 82550; 82803; 82805; 82962; 83605; 83735; 83880; 84100; 84484; 85025; 87040; 87205; 92611; 93005; 94640; 94660; 96372; 99285; J1650; J1815; J1940; J3535; J7030; J7512; J7626; J8499

== ENCOUNTER 2020-08-06 15:34 | Observation (INO) | payer MEDICAID, SELFPAY ==
[2020-08-06] VITALS (9 sets, daily range): BP systolic 150–179; BP diastolic 83–108; PULSE 124–144; RESP 20–31; TEMP 36.5; O2SAT 90–100; BMI 19.8
--- NOTE | 2020-08-06 15:43 | XRR_ITS ---
PROCEDURE INFORMATION: Exam: XR Chest Exam date and time: 08/06/2020 4:28 PM Age: 59 years old Clinical indication: Device placement; Ett placement (vent status); Shortness of breath; Additional info: SOB TECHNIQUE: Imaging protocol: XR of the chest. Views: 1 view. COMPARISON: CR XR chest 1V portable [id number] 07/10/2020 1:37 PM FINDINGS: Tubes, catheters and devices: A normal appearing endotracheal tube is not visible Lungs: Hyperexpanded likely COPD No consolidation. Pleural spaces: Unremarkable. No pleural effusion. No pneumothorax. Heart/Mediastinum: Unremarkable. No cardiomegaly. Bones/joints: Unremarkable. XR/XR chest 1V portable [id number] IMPRESSION: 1. Hyperexpanded lungs probable COPD 2. No acute findings. 3. ET tube is not visible
--- NOTE | 2020-08-06 15:45 | ECG_ITS ---
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 Measurements Intervals [place] Rate: 123 P: 87 MS: 112 QRS: 83 QRSD: 90 T: 76 QT: 277 QTc: 396 Interpretive Statements SINUS TACHYCARDIA WITH SHORT MS INTERVAL ABNORMAL RHYTHM ECG Compared to ECG 07/13/2020 17:47:58 Short MS interval now present Electronically Signed On 08-06-2020 18:20:56 CDT by Marianna Guadalupe M.D. [id number]
--- NOTE | 2020-08-06 16:04 | W.ED.SOB ---
HPI - SOB/Dyspnea General: Chief Complaint: Shortness of Breath/Dyspnea Stated Complaint: DIFF BREATHING Time Seen by Provider: 08/06/20 15:38 History of Present Illness: HPI Narrative: 59 yo female comes in with 1 week of shortness of breath, worse since yesterday. She did denies fever or chills. She denies pain with inspiration. No nausea or vomiting. She has a chronic cough. She denies any abdominal pain. She has had some swelling in the legs. Patient continues to smoke cigarettes. Patient has a history of COPD previous acute on chronic respiratory failure with hypoxia and hypercapnia. She also has a history of congestive heart failure. She has been put on BiPAP previously. MD elicited complaint: shortness of breath and cough (Chronic) Pertinent past history: COPD and congestive heart failure Onset (ago): week(s) (1 week, worse since yesterday.) Context: smoke/fume exposure (Patient continues to smoke cigarettes.) Timing: constant and progressively worsening Severity: similar to previous episodes Exacerbating factors: exertion and coughing Relieving factors: nothing Known history of: COPD and congestive heart failure Associated symptoms: Reports cough and orthopnea; Deny abdominal pain, chest congestion, chest pain, diaphoresis, dizziness, extremity pain, fever(s), hemoptysis, lightheadedness, nausea, palpitations, syncope or vomiting Treatment prior to arrival: oxygen and bronchodilator Review of Systems Narrative: 59-year-old female who looks much older than her stated age comes in with shortness of breath for the past week. Const: Reports: change in weight (History of protein calorie malnutrition) and fatigue; Denies: fever(s), chills, body aches or diaphoresis ENMT: Denies: throat pain, ear or mastoid pain, nasal discharge or nasal congestion Card: Reports: swelling of feet/ankles, dyspnea on exertion and orthopnea; Denies: chest pain, palpitations, irregular heart rhythm, lightheadedness, syncope or acrocyanosis Resp: Reports: dyspnea and productive cough (White and clear phlegm); Denies: wheezing, stridor, pain on inspiration, change in phlegm color, hemoptysis or chest congestion GI: Denies: abdominal pain, nausea, vomiting, hematemesis, coffee ground emesis or dysphagia : Denies: flank pain, difficulty voiding or dysuria Musc: Reports: extremity swelling (Patient complains of swelling of her feet); Denies: neck pain, back pain or extremity pain Neuro: Denies: headache(s), numbness in extremities, weakness in extremities, frequent falls or dizziness PFSH ED PFSH: Medical History CHF (congestive heart failure) Ejection fraction 57% on echocardiogram done 05/15/2020 Chronic respiratory failure with hypoxia and hypercapnia COPD (chronic obstructive pulmonary disease) Edema of left lower extremity GERD (gastroesophageal reflux disease) HIV (human immunodeficiency virus infection) Nicotine addiction Protein calorie malnutrition Surgical History H/O laparoscopy History of History of hysterectomy Family History Mother COPD (chronic obstructive pulmonary disease) Father CAD (coronary artery disease) Social History Smoking and tobacco status: current every day smoker cigarettes Years cigarettes smoked: 50 [ Other cigarette details: Hx of 1 PPD x 15 Years ] Second hand smoke exposure: Yes Alcohol intake: current Alcohol intake frequency: holidays/special occasions only Lives independently: Yes Household members: none Marital status: / Current occupational status: disabled History of recent travel: No Current gender identity: Female Female Reproductive History: Date of last menstrual period: 06/27/20 Physical Exam Const: COMMON NORMALS: patient oriented x3 and alert GENERAL APPEARANCE: cooperative, in distress, disheveled, lethargic, ill appearing, frail appearing and appears older than stated age NUTRITIONAL APPEARANCE: cachectic and thin ORIENTATION/CONSCIOUSNESS: Yes awake, Yes oriented to person, Yes oriented to place, Yes oriented to time and Yes lethargic HENMT: COMMON NORMALS: normocephalic and atraumatic; oral mucous membranes not moist (Oral mucosa is dry) HEAD & SCALP: normal to inspection, normocephalic and atraumatic Eye: COMMON NORMALS: Equal, round and reactive pupils present, EOMs intact bilaterally, conjunctivae normal and no scleral icterus GENERAL EYE: appearance normal, both eyes and all related structures and normal light reflex CONJUNCTIVA: Yes conjunctivae normal PUPIL: Yes Equal, round and reactive pupils present DIRECT OPHTHALMOSCOPY: Yes normal light reflex Neck/C-Spine: COMMON NORMALS: full ROM, no lymphadenopathy, supple, no meningeal signs and no JVD GENERAL: Yes normal visual inspection, Yes trachea midline, Yes anterior neck swelling, No lymphadenopathy and No tender Chest: COMMONS NORMALS: normal inspection of the chest and normal palpation of entire chest wall Resp: EFFORT & INSPECTION: Yes abnormal respiratory pattern, Yes tachypneic, Yes respiratory distress, Yes decreased respiratory effort, No labored, No grunting, No stridor, No Actively coughing and Yes uses accessory muscles AUSCULTATION: no crackles, no rales, no rhonchi, no wheezes and diminished lung sounds Cardio: COMMON NORMALS: no JVD Neuro: COMMON NORMALS: patient oriented x3 SENSORIUM/ORIENTATION: Yes alert, Yes oriented to person, Yes oriented to place, Yes oriented to time and Yes lethargic MENINGEAL SIGNS: Yes no meningeal signs Course Reevaluation(s): Reevaluation #1: Patient has been on the BiPAP. She is awake alert. She indicates that she is feeling better. She appears to be in no acute distress. ABG has improved. Consultations: Consultation #1: Discussed with Dr. Oneil who has kindly accepted this patient for admission. He stated he will write the orders. Vital Signs: Vital signs: Vital Signs Temperature 97.7 F 08/06/20 15:36 Pulse Rate 131 H 08/06/20 18:16 Respiratory Rate 28 H 08/06/20 16:34 Blood Pressure 150/101 08/06/20 16:34 Pulse Oximetry 90 08/06/20 18:16 MDM - SOB/Dyspnea Lab Data: Labs: Lab Results 08/06/20 08/06/20 08/06/20 Range/Units 14:03 14:03 14:03 WBC Cancelled Corrected WBC Cancelled RBC Cancelled Hgb Cancelled Hct Cancelled MCV Cancelled MCH Cancelled MCHC Cancelled RDW Cancelled Plt Count Cancelled MPV Cancelled Gran % Cancelled Neut % (Auto) Cancelled Lymph % (Auto) Cancelled [place] % (Auto) Cancelled Eos % (Auto) Cancelled Baso % (Auto) Cancelled Neut # (Auto) Cancelled Lymph # (Auto) Cancelled [place] # (Auto) Cancelled Eos # (Auto) Cancelled Baso # (Auto) Cancelled Absolute Gran (aut o) Cancelled Nucleated RBC % (a uto) Cancelled Nucleated RBCs # Cancelled Specimen Type Sample Site ABG pH (7.35-7.45) ABG pCO2 (35-45) mmHg ABG pO2 (80.0-100.0) mmH g ABG HCO3 (22-26) mmol/L ABG O2 Saturation ABG Base Excess (-2.0-2.0) mmol/ L Adrian Test A-a O2 Gradient (5-10) mmHg Hematocrit (37-47) % Hgb O2 Saturation (95-100) % Carboxyhemoglobin (0.4-20.1) %THgb Methemoglobin (0.4-1.5) % Total Hemoglobin (12-16) g/dL Ionized Calcium (1.1-1.4) mmol/L O2 Delivery Device O2 Liters/Min % FiO2 % Clinical Rn Manager ID Sodium 140 (136-145) mmol/L Potassium 4.2 (3.5-5.1) mmol/L Chloride 89 L (98-107) mmol/L Carbon Dioxide 46 H* (22-29) mmol/L Anion Gap 9.2 (5-19) BUN 12 (6-20) mg/dL Creatinine 0.6 (0.5-0.9) mg/dL GFR Calculation 102.7 (90-130) mL/min Glucose 157 H (65-115) mg/dL Calculated Osmolal ity 293 (285-295) mOsm/k g Lactate 0.8 (0.5-2.2) mmol/L Calcium 9.4 (8.5-10.5) mg/dL Magnesium 2.4 H (1.7-2.3) mg/dL Total Bilirubin 0.5 (0.15-1.2) mg/dL AST 26 (0-32) U/L ALT 20 (0-33) U/L Alkaline Phosphata se 59 (35-105) IU/L NT-Pro-B Natriuret Pep 1660 H (0-125) pg/mL Total Protein 6.4 L (6.6-8.7) g/dL Albumin 4.6 (3.5-5.2) g/dL Globulin 1.8 (1.3-4.6) g/dL Urine Color (Yellow) Urine Appearance (CLEAR) Urine pH (5-7) Ur Specific Gravit y (1.005-1.030) Urine Protein (Negative) Urine Glucose (UA) (Normal) Urine Ketones (Negative) Urine Blood (Negative) Urine Nitrate (Negative) Urine Bilirubin (Negative) Urine Urobilinogen (Negative) mg/dL Ur Leukocyte [place] ase (Negative) 08/06/20 08/06/20 08/06/20 Range/Units 15:57 16:32 17:30 WBC 8.4 Corrected WBC RBC 4.48 Hgb 12.8 Hct 43.8 MCV 97.8 MCH 28.6 MCHC 29.2 L RDW 12.8 Plt Count 216 MPV 10.0 Gran % Neut % (Auto) 70.8 Lymph % (Auto) 16.6 [place] % (Auto) 10.1 Eos % (Auto) 0.9 Baso % (Auto) 0.4 Neut # (Auto) 5.98 Lymph # (Auto) 1.4 [place] # (Auto) 0.9 Eos # (Auto) 0.1 Baso # (Auto) 0.0 Absolute Gran (aut o) Nucleated RBC % (a uto) 0 Nucleated RBCs # 0.0 Specimen Type Arterial Sample Site Brachial, left ABG pH 7.29 L (7.35-7.45) ABG pCO2 107.0 H* (35-45) mmHg ABG pO2 44.2 L (80.0-100.0) mmH g ABG HCO3 51.5 H (22-26) mmol/L ABG O2 Saturation 80.8 ABG Base Excess 19.5 H (-2.0-2.0) mmol/ L Adrian Test N/a A-a O2 Gradient 4.1 L (5-10) mmHg Hematocrit 40.0 (37-47) % Hgb O2 Saturation 78.7 L (95-100) % Carboxyhemoglobin 1.9 (0.4-20.1) %THgb Methemoglobin 0.8 (0.4-1.5) % Total Hemoglobin 13.1 (12-16) g/dL Ionized Calcium 1.3 (1.1-1.4) mmol/L O2 Delivery Device Nc O2 Liters/Min 2.0 % FiO2 28.0 % Clinical Rn Manager ID Ed Sodium 140.0 (136-145) mmol/L Potassium 3.9 (3.5-5.1) mmol/L Chloride (98-107) mmol/L Carbon Dioxide (22-29) mmol/L Anion Gap (5-19) BUN (6-20) mg/dL Creatinine (0.5-0.9) mg/dL GFR Calculation (90-130) mL/min Glucose 173.0 H (65-115) mg/dL Calculated Osmolal ity (285-295) mOsm/k g Lactate (0.5-2.2) mmol/L Calcium (8.5-10.5) mg/dL Magnesium (1.7-2.3) mg/dL Total Bilirubin (0.15-1.2) mg/dL AST (0-32) U/L ALT (0-33) U/L Alkaline Phosphata se (35-105) IU/L NT-Pro-B Natriuret Pep (0-125) pg/mL Total Protein (6.6-8.7) g/dL Albumin (3.5-5.2) g/dL Globulin (1.3-4.6) g/dL Urine Color Yellow (Yellow) Urine Appearance Clear (CLEAR) Urine pH 5 (5-7) Ur Specific Gravit y 1.025 (1.005-1.030) Urine Protein Neg (Negative) Urine Glucose (UA) Trace H (Normal) Urine Ketones Negative (Negative) Urine Blood Neg (Negative) Urine Nitrate Negative (Negative) Urine Bilirubin Neg (Negative) Urine Urobilinogen Norm (Negative) mg/dL Ur Leukocyte [place] ase Negative (Negative) 08/06/20 Range/Units 17:45 WBC Corrected WBC RBC Hgb Hct MCV MCH MCHC RDW Plt Count MPV Gran % Neut % (Auto) Lymph % (Auto) [place] % (Auto) Eos % (Auto) Baso % (Auto) Neut # (Auto) Lymph # (Auto) [place] # (Auto) Eos # (Auto) Baso # (Auto) Absolute Gran (aut o) Nucleated RBC % (a uto) Nucleated RBCs # Specimen Type Arterial Sample Site Brachial, left ABG pH 7.34 L (7.35-7.45) ABG pCO2 94.5 H* (35-45) mmHg ABG pO2 50.6 L (80.0-100.0) mmH g ABG HCO3 50.5 H (22-26) mmol/L ABG O2 Saturation ABG Base Excess 19.7 H (-2.0-2.0) mmol/ L Adrian Test N/a A-a O2 Gradient (5-10) mmHg Hematocrit 39.5 (37-47) % Hgb O2 Saturation (95-100) % Carboxyhemoglobin (0.4-20.1) %THgb Methemoglobin (0.4-1.5) % Total Hemoglobin (12-16) g/dL Ionized Calcium (1.1-1.4) mmol/L O2 Delivery Device Bipap O2 Liters/Min % FiO2 30.0 % Clinical Rn Manager ID Ed Sodium (136-145) mmol/L Potassium (3.5-5.1) mmol/L Chloride (98-107) mmol/L Carbon Dioxide (22-29) mmol/L Anion Gap (5-19) BUN (6-20) mg/dL Creatinine (0.5-0.9) mg/dL GFR Calculation (90-130) mL/min Glucose (65-115) mg/dL Calculated Osmolal ity (285-295) mOsm/k g Lactate (0.5-2.2) mmol/L Calcium (8.5-10.5) mg/dL Magnesium (1.7-2.3) mg/dL Total Bilirubin (0.15-1.2) mg/dL AST (0-32) U/L ALT (0-33) U/L Alkaline Phosphata se (35-105) IU/L NT-Pro-B Natriuret Pep (0-125) pg/mL Total Protein (6.6-8.7) g/dL Albumin (3.5-5.2) g/dL Globulin (1.3-4.6) g/dL Urine Color (Yellow) Urine Appearance (CLEAR) Urine pH (5-7) Ur Specific Gravit y (1.005-1.030) Urine Protein (Negative) Urine Glucose (UA) (Normal) Urine Ketones (Negative) Urine Blood (Negative) Urine Nitrate (Negative) Urine Bilirubin (Negative) Urine Urobilinogen (Negative) mg/dL Ur Leukocyte [place] ase (Negative) Discharge Plan Discharge Patient Disposition: Admitted As Inpatient Clinical Impression: Acute on chronic respiratory failure with hypoxia and hypercapnia Condition: Stable Coding Level of Care Code 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
[2020-08-06 16:07] LABS: ABG PH Result 7.29 (7.35-7.45); Base Excess ABG 19.5 mmol/L (-2.0-2.0); Blood Gas Sample Type Arterial; Carboxyhemoglobin 1.9 %THgb (0.4-20.1); HCO3 ABG 51.5 mmol/L (22-26); HGB O2 Sat 78.7 % (95-100); Ionized Calcium Level - ABG 1.3 mmol/L (1.1-1.4); Methemoglobin 0.8 % (0.4-1.5); Oxygen Saturation ABG 80.8; PO2 ABG 44.2 mmHg (80.0-100.0); Potassium Level - ABG 3.9 mmol/L (3.5-5.0); Total Hemoglobin 13.1 g/dL (12-16)
[2020-08-06 16:08] LABS: Alveolar-Arterial Oxygen Gradi 4.1 mmHg (5-10); Blood Gas Operator Identificat ED; Blood Gas Sample Site Brachial, left; Oxygen Device NC
[2020-08-06 16:40] LABS: Add Urine Microscopic? NO; Charge for UA Resulting for Rev
[2020-08-06 17:03] LABS: Bilirubin Urine Neg (Negative); Blood Urine Neg (Negative); Glucose Urine UA Trace (Normal); Ketones Urine Negative (Negative); Leukocyte Esterase Urine Negative (Negative); Nitrate Urine Negative (Negative); Protein Urine Neg (Negative); Specific Gravity, Urine 1.025 (1.005-1.030); Urine Appearance Clear (CLEAR); Urine Color Yellow (Yellow); Urobilinogen Urine Norm (Negative); pH Urine 5 (5-7)
[2020-08-06 17:04] LABS: Alanine Aminotransferase 20 U/L (0-33); Albumin Level 4.6 g/dL (3.5-5.2); Alkaline Phosphatase 59 IU/L (35-105); Aspartate Amino Transferase 26 U/L (0-32); Blood Urea Nitrogen 12 mg/dL (6-20); Calcium 9.4 mg/dL (8.5-10.5); Chloride 89 mmol/L (98-107); Globulin 1.8 g/dL (1.3-4.6); Glomerular Filtration Rate 102.7 mL/min (90-130); Glucose 157 mg/dL (65-115); Magnesium 2.4 mg/dL (1.7-2.3); NT Pro B Type Natriuretic Pept 1660 pg/mL (0-125); Osmolality Calculated 293 mOsm/kg (285-295); Sodium 140 mmol/L (136-145); Total Bilirubin 0.5 mg/dL (0.15-1.2); Total Protein 6.4 g/dL (6.6-8.7)
--- NOTE | 2020-08-06 17:13 | PC.PHAR ---
pt unable to verify medications-called [facility] for med list-they had acyclovir 400mg tid (last filled on 06/16/20 9d/s) states they are unsure if pt is taking then-lipitor 40mg last filled on 04/26/20 30d/s-carvedilol 3.125mg bid last filled on 04/26/20 30d/s-pantoprazole 40mg daily last filled on 04/26/20 30d/d-the other meds entered are meds that show on ext med history that have been filled recently and that were on the pts med list from [place]-prednisone 5mg daily is waiting at [facility] to be picked up-
[2020-08-06 17:18] LABS: Anion Gap 9.2 (5-19); Carbon Dioxide 46 mmol/L (22-29)
[2020-08-06 17:19] LABS: Potassium 4.2 mmol/L (3.5-5.1)
[2020-08-06 17:32] LABS: Lactate (Lactic Acid level) 0.8 mmol/L (0.5-2.2)
[2020-08-06 17:54] LABS: Basophils % 0.4 %; Eosinophils # 0.1 10^3/uL (0.0-0.8); Eosinophils % 0.9 %; Hematocrit 43.8 % (37.0-47.0); Hemoglobin 12.8 g/dL (11.5-15.3); Lymphocytes # 1.4 10^3/uL (0.8-4.8); Lymphocytes % 16.6 %; Mean Corpuscular HGB Conc 29.2 g/dL (30.0-36.0); Mean Corpuscular Hemoglobin 28.6 pg (28.0-34.0); Mean Corpuscular Volume 97.8 fL (81-99); Monocytes # 0.9 10^3/uL (0.2-0.9); Monocytes % 10.1 %; Neutrophils # 5.98 10^3/uL (1.8-7.7); Neutrophils % 70.8 %; Nucleated Red Blood Cells % 0 %; Platelet Count 216 10^3/cmm (130-400); Red Blood Count 4.48 10^6/uL (4.1-5.3); Red Cell Distribution Width 12.8 % (12.1-15.1); White Blood Count 8.4 10^3/uL (4.0-10.0)
[2020-08-06 17:55] LABS: ABG PH Result 7.34 (7.35-7.45); Arterial Blood Gas Hematocrit 39.5 % (37-47); Base Excess ABG 19.7 mmol/L (-2.0-2.0); Blood Gas Operator Identificat ED; Blood Gas Sample Site Brachial, left; Blood Gas Sample Type Arterial; HCO3 ABG 50.5 mmol/L (22-26); Oxygen Device BIPAP; PO2 ABG 50.6 mmHg (80.0-100.0)
[2020-08-06 17:56] LABS: ABG PCO2 94.5 mmHg (35-45)
--- NOTE | 2020-08-06 19:27 | PM.HP ---
Providers/Chief Complaint Primary Care Provider: Ta Salas MD Chief Complaint: DIFF BREATHING History of Present Illness Adore Broussard is a 59 year old female who has history of chronic hypoxic hypercapnic respiratory failure, uses 2 to 3 L of oxygen at home, BiPAP dependent, HIV on Biktarvy was recently discharged from the hospital on 07/14 after management of hypercapnic respiratory failure presented today with chief complaint of shortness of breath. Patient is stating that her trilogy at home is troubleshooting, there is no pressure flow, and she will need a prescription to get it fixed. For last 2 days she has not been able to use trilogy properly, today her shortness of breath got worse. She is smoking 3 to 4 cigarettes a day, does not drink alcohol. She is denying fever, chest pain, worsening of productive cough, at baseline she notices clear sputum which has not changed in volume or color, no recent change in bowel movements, no dysuria Diagnostics in the ER revealed acute on chronic hypercapnic restaurant failure patient was very drowsy at the time of initial evaluation in the ER however improved with BiPAP usage, please note on previous admission her PCO2 was 109 pH 7.26 which improved with BiPAP therapy she did not require any intubation, her PCO2 today is showing signs of improvement with BiPAP she was awake and alert at the time of my evaluation able to mention above HPI. Her x-ray is not showing any consolidation signs of fluid overload. Of note she has had multiple episodes of hypoglycemia during previous hospitalization, she was advised to watch her glucose 3 times a day and use sliding scale judiciously with prednisone taper. She was discharged with doxycycline 100 mg twice daily 7-day regimen along prednisone taper. Review of Systems Const: Reports: chills, body aches and fatigue; Denies: fever(s) Eyes: Denies: change in vision ENMT: Denies: throat pain Card: Reports: swelling of feet/ankles and dyspnea on exertion; Denies: chest pain Resp: Reports: dyspnea and productive cough GI: Denies: abdominal pain : Denies: flank pain Musc: Denies: neck pain Skin/Breast: Denies: rash Neuro: Denies: headache(s) Psych: Denies: anxiety Endo: Denies: polyuria Yazan/Lymph: Denies: easy bruising All/Imm: Denies: urticaria Medications/Allergies Home Medications Medication Instructions Recorded Confirmed Last Taken Type albuterol sulfate 90 mcg/actuation 2 puff INHALATION Q4H PRN 10/03/19 08/06/20 Unknown History aerosol inhaler montelukast 10 mg tablet 10 mg PO DAILY 10/03/19 08/06/20 04/22/20 History Biktarvy 1 tab PO DAILY 04/23/20 08/06/20 04/23/20 History Spiriva with HandiHaler 1 cap INHALATION DAILY 05/05/20 08/06/20 Unknown History budesonide-formoterol [Symbicort] 2 puff INHALATION BID 05/05/20 08/06/20 Unknown History ipratropium-albuterol 3 ml INHALATION QID PRN #180 ml 05/16/20 08/06/20 Unknown Rx glucometer #1 ea 06/16/20 08/06/20 Unknown Rx insulin aspart U-100 [Novolog See Rx Instructions .ROUTE 06/16/20 08/06/20 Unknown Rx Flexpen U-100 Insulin] .COMPLEX #15 ml aspirin 81 mg PO DAILY 06/27/20 08/06/20 Unknown History furosemide [Lasix] 20 mg PO DAILY PRN #30 tab 06/29/20 08/06/20 Unknown Rx Combivent Respimat 1 puff INHALATION Q6H PRN 07/10/20 08/06/20 Unknown History prednisone 5 mg PO DAILY 08/06/20 08/06/20 Unknown History sulfamethoxazole-trimethoprim See Rx Instructions .ROUTE .COMPLEX 08/06/20 08/06/20 Unknown History Allergies Allergy/AdvReac Type Severity Reaction Status Date / Time Penicillins Allergy ALGY-Difficulty Verified 07/10/20 12:54 Breathing phenobarbital Allergy ALGY-Hives Verified 07/10/20 12:54 Tetanus Vaccines and Toxoid Allergy ALGY-Hives Verified 07/10/20 12:54 PFSH Acute PFSH: Medical History CHF (congestive heart failure) Ejection fraction 57% on echocardiogram done 05/15/2020 Chronic respiratory failure with hypoxia and hypercapnia COPD (chronic obstructive pulmonary disease) Edema of left lower extremity GERD (gastroesophageal reflux disease) HIV (human immunodeficiency virus infection) Nicotine addiction Protein calorie malnutrition Surgical History H/O laparoscopy History of History of hysterectomy Family History Mother COPD (chronic obstructive pulmonary disease) Father CAD (coronary artery disease) Social History Smoking and tobacco status: current every day smoker cigarettes Years cigarettes smoked: 50 [ Other cigarette details: Hx of 1 PPD x 15 Years ] Second hand smoke exposure: Yes Alcohol intake: current Alcohol intake frequency: holidays/special occasions only Lives independently: Yes Household members: none Marital status: / Current occupational status: disabled History of recent travel: No Current gender identity: Female Female Reproductive History: Date of last menstrual period: 06/27/20 Vitals/I&O/Wt Last Vital Signs Temp 97.7 F 08/06/20 15:36 Pulse 131 H 08/06/20 18:16 Resp 28 H 08/06/20 16:34 BP 150/101 08/06/20 16:34 Pulse Ox 90 08/06/20 18:16 Weight last 48 hrs Weight 47.627 kg Physical Exam Narrative: EXAM NARRATIVE: Middle-age female who appears more than stated age Cachectic and malnourished Sarcopenia Was on BiPAP settings 16/8 saturating well on room air and she was awake and alert oriented x3 GCS 15 no neurological deficits No signs of meningitis S1, S2 no murmur appreciated with signs of heart failure bilateral lower extremity edema Left leg swollen greater than right No sign of cellulitis Hyperemia of knees noted Abdomen soft Bilateral assisted breath sounds with rhonchi and mild wheezing Anxious mood No use of respiratory sensory muscles no signs of cyanosis No skin mottling noted Urinary Catheter Management^: Angulo: Cath Placed During This Visit: yes Urinary Catheter Date of Insertion: 08/06/20 Urinary Catheter Time of Insertion: 16:37 Data : 08/06/20 17:30 08/06/20 14:03 A&P Assessment and plan (1) Acute and chronic respiratory failure with hypercapnia: Status: Acute (2) BMI less than 19,adult: Status: Chronic (3) Protein-calorie malnutrition, moderate: Status: Acute (4) Chronic steroid use: Status: Acute (5) Nicotine addiction: Status: Chronic Qualifiers: Nicotine product type: cigarettes Substance use status: other nicotine-induced disorder Qualified Code(s): F17.218 - Nicotine dependence, cigarettes, with other nicotine-induced disorders (6) HIV (human immunodeficiency virus infection): Status: Chronic Qualifiers: HIV symptom status: asymptomatic Qualified Code(s): Z21 - Asymptomatic human immunodeficiency virus [HIV] infection status Additional A&P Information Acute on chronic hypercapnic respiratory failure COPD exacerbation due to active smoking and noncompliance Patient was drowsy with hypercapnia initially however improved with BiPAP usage, I will monitor her on MedSurg for now, in case her respiratory status worsens will transfer to ICU Chest x-ray without any signs of pneumonia infiltrate or fluid overload state No signs of sepsis Currently doing well on BiPAP, her baseline PCO2 seems to be around 76-84, she is actively smoking, compliance with BiPAP at home/trilogy questionable, patient is stating that she lives alone, and her trilogy is troubleshooting for last few days and will need a prescription to get it fixed, We will get pillowcase folder involved Keep her on BiPAP overnight start DuoNeb treatment Check D-dimer to rule out PE She has bilateral lower extremity edema left greater than right She will definitely benefit from a dietary consult because of her protein calorie malnourishment secondary to severe COPD I would only use low-dose prednisone for now I will continue her Lasix that she has been taking for diastolic congestive heart failure Counseled on smoking cessation Continue HIV medication Full code Consistent carbohydrate diet: Moderate sliding scale, she had hypoglycemic events during previous hospitalization DVT prophylaxis Lovenox Attestations Medical Necessity Statement*: Anticipating discharge in less than 48 hours will need BiPAP for COPD exacerbation Time Spent in Patient Care: (>than 50% of time spent in counselling and/or direct pt care on unit). 40mins Coding Level of Care Code Acute Hr Intern for Paris Dickerson Diagnoses Acute and chronic respiratory failure with hypercapnia J96.22 BMI less than 19,adult Z68.1 Protein-calorie malnutrition, moderate E44.0 Chronic steroid use Nicotine addiction F17.218 Nicotine product type: cigarettes Substance use status: other nicotine-induced disorder HIV (human immunodeficiency virus infection) Z21 HIV symptom status: asymptomatic
[2020-08-07] VITALS (15 sets, daily range): BP systolic 136–164; BP diastolic 70–97; PULSE 78–137; RESP 16–22; TEMP 36.3–37.4; O2SAT 93–100
--- NOTE | 2020-08-07 00:10 | USCV_ITS ---
Adore Broussard Age: 59 Gender: F : 1960 Exam Date: 08/07/2020 06:45 Ordering Phys: Dhara Oneil MD Technologist: Exam Location: [facility] [place]ication: BILAT EDEMA HISTORY: Lower extremity swelling. PROCEDURES: The venous duplex Doppler examination of both lower extremities was performed in the standard fashion. The following venous structures were evaluated: common femoral vein, profunda vein, proximal portion of the greater saphenous vein, superficial femoral vein, and the popliteal vein. FINDINGS: Normal 2-D Doppler and augmentation and compressibility throughout the lower extremity venous structures. Additional imaging through the proximal calf veins also reveals no thrombus. Limited evaluation of the greater saphenous vein is patent with no thrombus.. Pulsatile flow pattern CONCLUSIONS 1. No evidence of DVT in the above-mentioned identifiable veins. 2. Abnormal Doppler flow pattern, suggestive of high central venous pressure Dr Darren Blankenship MD [facility] (Electronically Signed) Final Date: 07 Aug 2020 10:15 S
[2020-08-07] MEDS: acetaZOLAMIDE 250 mg Tablet PO (00:31)
[2020-08-07] MEDS: enoxaparin 40 mg/0.4 mL Syringe SUBCUT (00:32)
[2020-08-07 00:39] LABS: Glucose Point of Care 197 mg/dL (70-110)
--- NOTE | 2020-08-07 03:09 | PC.RESP ---
Pt is very anxious at this time. She has been unable to tolerate the BIPAP machine since she has arrived on the medical surgical floor. I spoke with the pt's nurse and charge nurse about getting an order for medication that would decrease the pt's anxiety. The nurses had no luck getting this medication ordered from the doctor at this time. Pt's states if I am not wearing the machine, you will not hurt me with that needle this morning. Pt seems to be resting comfortable in bed at this time wearing a 3lpm nasal cannula.
[2020-08-07 05:26] LABS: Hematocrit 41.8 % (37.0-47.0); Hemoglobin 12.5 g/dL (11.5-15.3); Lymphocytes # 0.4 10^3/uL (0.8-4.8); Lymphocytes % 6.2 %; Mean Corpuscular HGB Conc 29.9 g/dL (30.0-36.0); Mean Corpuscular Hemoglobin 28.7 pg (28.0-34.0); Mean Corpuscular Volume 95.9 fL (81-99); Mean Platelet Volume 10.2 fL (7.4-10.4); Monocytes # 0.1 10^3/uL (0.2-0.9); Monocytes % 2.2 %; Neutrophils # 5.32 10^3/uL (1.8-7.7); Neutrophils % 91.1 %; Nucleated Red Blood Cells % 0 %; Platelet Count 255 10^3/cmm (130-400); Red Blood Count 4.36 10^6/uL (4.1-5.3); Red Cell Distribution Width 12.7 % (12.1-15.1); White Blood Count 5.8 10^3/uL (4.0-10.0)
[2020-08-07 05:38] LABS: D Dimer 0.34 ug/mIFEU (0-0.59)
[2020-08-07 05:50] LABS: Anion Gap 3.4 (5-19); Blood Urea Nitrogen 19 mg/dL (6-20); Calcium 8.7 mg/dL (8.5-10.5); Chloride 90 mmol/L (98-107); Glomerular Filtration Rate 102.7 mL/min (90-130); Glucose 237 mg/dL (65-115); Osmolality Calculated 296 mOsm/kg (285-295); Potassium 4.4 mmol/L (3.5-5.1); Sodium 138 mmol/L (136-145)
[2020-08-07 06:39] LABS: Glucose Point of Care 210 mg/dL (70-110)
[2020-08-07 07:12] LABS: Carbon Dioxide 49 mmol/L (22-29)
[2020-08-07] MEDS: montelukast sodium 10 mg Tablet PO (08:36)
[2020-08-07] MEDS: predniSONE 10 mg Tablet PO (08:36)
[2020-08-07] MEDS: aspirin 81 mg EC Tablet PO (08:36)
[2020-08-07] MEDS: ipratropium-albuterol 3 mL Neb INHALATION ×3 (09:02→20:51)
[2020-08-07] MEDS: budesonide 0.5 mg/2 mL Neb INHALATION ×2 (11:30→20:50)
[2020-08-07 11:58] LABS: Glucose Point of Care 105 mg/dL (70-110)
[2020-08-07 15:36] LABS: Glucose Point of Care 306 mg/dL (70-110)
[2020-08-07 16:44] LABS: Glucose Point of Care 332 mg/dL (70-110)
[2020-08-07 20:21] LABS: Glucose Point of Care 175 mg/dL (70-110)
--- NOTE | 2020-08-07 23:39 | P.PN_ITS ---
Subjective Subjective: Interval history: Patient was seen twice today. She initially indicated that she wanted to leave today and then later was wanting to stay to continue receiving treatments. No specific new complaints. She is making sure to have regular small snacks so that her blood sugar does not drop like it did the last time. Angulo catheter was removed today. She is refusing BiPAP. She does have a trilogy device at home but says that her mask does not fit. She does not have anybody at home with her. Admits that it makes it challenging. Vitals/I&O/Wt Last Vital Signs Temp 99.3 F 08/07/20 20:18 Pulse 137 H 08/07/20 20:58 Resp 20 H 08/07/20 20:50 BP 147/70 08/07/20 20:18 Pulse Ox 96 08/07/20 20:50 08/07/20 08/07/20 08/08/20 14:59 22:59 06:59 Intake Total 840 / 840 480 / 1320 Output Total 450 / 450 520 / 970 Balance 390 / 390 -40 / 350 Weight last 48 hrs Weight 47.627 kg Physical Exam Narrative: EXAM NARRATIVE: Constitutional: Asleep, easily arousable, thin build, recognizes me from prior visits and was quite pleasant today Respiratory: Wheezes throughout, occasional pursed lip breathing, no current accessory muscle use at rest Cardiovascular: Tachycardic but regular rhythm Abdomen: Abdomen is soft, nontender Extremities: No pitting edema Neuro: Speech clear, face symmetric Urinary Catheter Management^: Angulo: Cath Placed During This Visit: yes, but has since been removed by the nurse Reason for Continuing Indwelling Catheter: Decision to DC Catheter Urinary Catheter Date of Insertion: 08/06/20 Urinary Catheter Time of Insertion: 16:37 Date Urinary Catheter Removed: 08/07/20 Time Urinary Catheter Discontinued: 16:31 Data : 08/07/20 05:03 08/07/20 05:03 A&P Assessment and plan (1) Acute and chronic respiratory failure with hypercapnia: Status: Acute (2) BMI less than 19,adult: Status: Chronic (3) Protein-calorie malnutrition, moderate: Status: Acute (4) Chronic steroid use: With steroid-induced hyperglycemia Status: Acute (5) Nicotine addiction: Status: Chronic Qualifiers: Nicotine product type: cigarettes Substance use status: other nicotine- induced disorder Qualified Code(s): F17.218 - Nicotine dependence, cigarettes, with other nicotine-induced disorders (6) HIV (human immunodeficiency virus infection): Status: Chronic Qualifiers: HIV symptom status: asymptomatic Qualified Code(s): Z21 - Asymptomatic human immunodeficiency virus [HIV] infection status Additional A&P Information Continue current management Increase activity as able Need to see if whomever has provided her trilogy can facilitate evaluating and/or getting her a different mask She will consider dietary consultation and let me know Monitor need to stress dose steroids Continue suppressive Bactrim, home antiretrovirals on hold as she again did not bring them with her Other home medications as ordered Nicotine patch offered though declined Insulin as needed Supportive care otherwise Lovenox for DVT prophylaxis Plans discussed with patient and she was given an opportunity to ask questions Full code Attestations Medical Necessity Statement*: Currently in observation status as per H&P Coding Level of Care Code Acute Certified Pathology Assistant for Paris Dickerson Diagnoses Acute and chronic respiratory failure with hypercapnia J96.22 BMI less than 19,adult Z68.1 Protein-calorie malnutrition, moderate E44.0 Chronic steroid use Nicotine addiction F17.218 Nicotine product type: cigarettes Substance use status: other nicotine-induced disorder HIV (human immunodeficiency virus infection) Z21 HIV symptom status: asymptomatic
[2020-08-08] VITALS (7 sets, daily range): BP systolic 134–160; BP diastolic 74–87; PULSE 116–130; RESP 18–22; TEMP 36.7; O2SAT 93–96
[2020-08-08] MEDS: enoxaparin 40 mg/0.4 mL Syringe SUBCUT (00:23)
[2020-08-08 06:40] LABS: Glucose Point of Care 113 mg/dL (70-110)
[2020-08-08] MEDS: budesonide 0.5 mg/2 mL Neb INHALATION (08:02)
[2020-08-08] MEDS: aspirin 81 mg EC Tablet PO (08:17)
[2020-08-08] MEDS: predniSONE 10 mg Tablet PO (08:17)
[2020-08-08] MEDS: sulfamethoxazole-trimeth DS 160-800 mg Tablet 1 TAB PO (08:17)
[2020-08-08] MEDS: montelukast sodium 10 mg Tablet PO (08:17)
--- NOTE | 2020-08-08 08:45 | PM.DCS ---
Discharge Providers Date of Admission: 08/07/20 00:10 Date of Discharge: August 08, 2020 Attending Provider at Admission: Dhara Oneil MD Attending Provider at Discharge: Doris Jc MD Primary Care Provider: Ta Salas MD Diagnoses at Discharge Discharge Diagnosis (1) Acute and chronic respiratory failure with hypercapnia: Status: Acute (2) BMI less than 19,adult: Status: Chronic (3) Protein-calorie malnutrition, moderate: Status: Chronic (4) Chronic steroid use: Status: Acute (5) Nicotine addiction: Status: Chronic Qualifiers: Nicotine product type: cigarettes Substance use status: other nicotine-induced disorder Qualified Code(s): F17.218 - Nicotine dependence, cigarettes, with other nicotine-induced disorders (6) HIV (human immunodeficiency virus infection): Status: Chronic Qualifiers: HIV symptom status: asymptomatic Qualified Code(s): Z21 - Asymptomatic human immunodeficiency virus [HIV] infection status Reason for Visit Reason for Visit: DIFF BREATHING Hospital Course Hospital Course Mrs. Broussard presented with difficulty breathing. She stated that her trilogy was not working. She was drowsy at the time. ABG showed PCO2 in the 90s which is slowly approaching patient's baseline. She was mildly acidotic. She was put on BiPAP. She was off of the BiPAP by the following morning and did not resume utilizing it. She was treated with steroids and breathing treatments. Breathing improved for her. I increased her prednisone to 10 mg a day for the time being. She was again encouraged to quit smoking. She stated that [facility], who provided her trilogy is aware that its not working or that the mask is not working. Patient received education again on smoking cessation. She is down to a few cigarettes a day. Other medications remain the same. At discharge, she had scattered wheezes but equal breath sounds and improved aeration from how she often presents. She was pleasant. She had a tachycardic rhythm which is her baseline. She is felt stable for discharge with outpatient follow-up though it is anticipated that she will probably be back pretty soon as she often is. She has nobody that can stay with her and help her by her report. Physical Exam Urinary Catheter Management^: Angulo: Cath Placed During This Visit: yes, but has since been removed by the nurse Reason for Continuing Indwelling Catheter: Decision to DC Catheter Urinary Catheter Date of Insertion: 08/06/20 Urinary Catheter Time of Insertion: 16:37 Date Urinary Catheter Removed: 08/07/20 Time Urinary Catheter Discontinued: 16:31 Discharge Data Data Completed and Pending: Completed Studies During Hospitalization Category Date Time Status XR chest 1V wild[place] ble [id number] Stat Exams 08/06/20 15:43 [place] [id number] Routin e Ultrasound 08/07/20 00:10 Completed Laboratory Results WBC 5.8 10^3/uL (4.0- 10.0) 08/07/20 05:03 Corrected WBC Cancelled 08/06/20 14:03 RBC 4.36 10^6/uL (4.1 -5.3) 08/07/20 05:03 Hgb 12.5 g/dL (11.5-1 5.3) 08/07/20 05:03 Hct 41.8 % (37.0-47.0 ) 08/07/20 05:03 MCV 95.9 fL (81-99) 08/07/20 05:03 MCH 28.7 pg (28.0-34. 0) 08/07/20 05:03 MCHC 29.9 g/dL (30.0-3 6.0) L 08/07/20 05:03 RDW 12.7 % (12.1-15.1 ) 08/07/20 05:03 Plt Count 255 10^3/cmm (130 -400) 08/07/20 05:03 MPV 10.2 fL (7.4-10.4 ) 08/07/20 05:03 Gran % Cancelled 08/06/20 14:03 Neut % (Auto) 91.1 % 08/07/20 05:03 Lymph % (Auto) 6.2 % 08/07/20 05:03 Mckean % (Auto) 2.2 % 08/07/20 05:03 Eos % (Auto) 0.0 % 08/07/20 05:03 Baso % (Auto) 0.0 % 08/07/20 05:03 Neut # (Auto) 5.32 10^3/uL (1.8 -7.7) 08/07/20 05:03 Lymph # (Auto) 0.4 10^3/uL (0.8- 4.8) L 08/07/20 05:03 Mckean # (Auto) 0.1 10^3/uL (0.2- 0.9) L 08/07/20 05:03 Eos # (Auto) 0.0 10^3/uL (0.0- 0.8) 08/07/20 05:03 Baso # (Auto) 0.0 10^3/uL (0.0- 0.1) 08/07/20 05:03 Absolute Gran (aut o) Cancelled 08/06/20 14:03 Nucleated RBC % (a uto) 0 % 08/07/20 05:03 Nucleated RBCs # 0.0 /100WBC 08/07/20 05:03 D-Dimer 0.34 ug/mIFEU (0- 0.59) 08/07/20 05:03 Specimen Type Arterial 08/06/20 17:45 Sample Site Brachial, left 08/06/20 17:45 ABG pH 7.34 (7.35-7.45) L 08/06/20 17:45 ABG pCO2 94.5 mmHg (35-45) H* 08/06/20 17:45 ABG pO2 50.6 mmHg (80.0-1 00.0) L 08/06/20 17:45 ABG HCO3 50.5 mmol/L (22-2 6) H 08/06/20 17:45 ABG O2 Saturation 80.8 08/06/20 15:57 ABG Base Excess 19.7 mmol/L (-2.0 -2.0) H 08/06/20 17:45 Adrian Test N/a 08/06/20 17:45 A-a O2 Gradient 4.1 mmHg (5-10) L 08/06/20 15:57 Hematocrit 39.5 % (37-47) 08/06/20 17:45 Hgb O2 Saturation 78.7 % (95-100) L 08/06/20 15:57 Carboxyhemoglobin 1.9 %THgb (0.4-20 .1) 08/06/20 15:57 Methemoglobin 0.8 % (0.4-1.5) 08/06/20 15:57 Total Hemoglobin 13.1 g/dL (12-16) 08/06/20 15:57 Sodium 140.0 mmol/L (131 -143) 08/06/20 15:57 Potassium 3.9 mmol/L (3.5-5 .0) 08/06/20 15:57 Glucose 173.0 mg/dL (70-1 15) H 08/06/20 15:57 Ionized Calcium 1.3 mmol/L (1.1-1 .4) 08/06/20 15:57 O2 Delivery Device Bipap 08/06/20 17:45 O2 Liters/Min 2.0 % 08/06/20 15:57 FiO2 30.0 % 08/06/20 17:45 Interior Design Consultant ID Ed 08/06/20 17:45 Sodium 138 mmol/L (136-1 45) 08/07/20 05:03 Potassium 4.4 mmol/L (3.5-5 .1) 08/07/20 05:03 Chloride 90 mmol/L (98-107 ) L 08/07/20 05:03 Carbon Dioxide 49 mmol/L (22-29) H* 08/07/20 05:03 Anion Gap 3.4 (5-19) L 08/07/20 05:03 BUN 19 mg/dL (6-20) 08/07/20 05:03 Creatinine 0.6 mg/dL (0.5-0. 9) 08/07/20 05:03 GFR Calculation 102.7 mL/min (90- 130) 08/07/20 05:03 Glucose 237 mg/dL (65-115 ) H 08/07/20 05:03 POC Glucose 113 mg/dL (70-110 ) H 08/08/20 06:36 Calculated Osmolal ity 296 mOsm/kg (285- 295) H 08/07/20 05:03 Lactate 0.8 mmol/L (0.5-2 .2) 08/06/20 14:03 Calcium 8.7 mg/dL (8.5-10 .5) 08/07/20 05:03 Magnesium 2.4 mg/dL (1.7-2. 3) H 08/06/20 14:03 Total Bilirubin 0.5 mg/dL (0.15-1 .2) 08/06/20 14:03 AST 26 U/L (0-32) 08/06/20 14:03 ALT 20 U/L (0-33) 08/06/20 14:03 Alkaline Phosphata se 59 IU/L (35-105) 08/06/20 14:03 NT-Pro-B Natriuret Pep 1660 pg/mL (0-125 ) H 08/06/20 14:03 Total Protein 6.4 g/dL (6.6-8.7 ) L 08/06/20 14:03 Albumin 4.6 g/dL (3.5-5.2 ) 08/06/20 14:03 Globulin 1.8 g/dL (1.3-4.6 ) 08/06/20 14:03 Urine Color Yellow (Yellow) 08/06/20 16:32 Urine Appearance Clear (CLEAR) 08/06/20 16:32 Urine pH 5 (5-7) 08/06/20 16:32 Ur Specific Gravit y 1.025 (1.005-1.0 30) 08/06/20 16:32 Urine Protein Neg (Negative) 08/06/20 16:32 Urine Glucose (UA) Trace (Normal) H 08/06/20 16:32 Urine Ketones Negative (Negati ve) 08/06/20 16:32 Urine Blood Neg (Negative) 08/06/20 16:32 Urine Nitrate Negative (Negati ve) 08/06/20 16:32 Urine Bilirubin Neg (Negative) 08/06/20 16:32 Urine Urobilinogen Norm mg/dL (Negat pham) 08/06/20 16:32 Ur Leukocyte [place] ase Negative (Negati ve) 08/06/20 16:32 Impressions Chest X-Ray 08/06/20 15:43 IMPRESSION: 1. Hyperexpanded lungs probable COPD 2. No acute findings. 3. ET tube is not visible Vitals: Last Vital Signs Temp 98.1 F 08/08/20 08:00 Pulse 130 H 08/08/20 08:08 Resp 22 H 08/08/20 08:04 BP 159/87 08/08/20 08:00 Pulse Ox 93 08/08/20 08:04 Discharge Plan Discharge Patient Disposition: Home Condition: Stable Prescriptions: Continued montelukast [Singulair] 10 mg tablet 10 mg PO DAILY RF: 0 albuterol sulfate [ProAir HFA] 90 mcg/actuation HFA aerosol inhaler 2 puff INHALATION Q4H PRN (Reason: Shortness Of Breath) RF: 0 Biktarvy 50-200-25 mg tablet 1 tab PO DAILY RF: 0 aspirin 81 mg Tablet,Delayed Release (Dr/Ec) 81 mg PO DAILY RF: 0 furosemide [Lasix] 20 mg tablet 20 mg PO DAILY PRN (Reason: Edema) Qty: 30 RF: 0 Spiriva with HandiHaler 18 mcg Capsule, W/Inhalation Device 1 cap INHALATION DAILY RF: 0 budesonide-formoterol [Symbicort] 160-4.5 mcg/actuation Hfa Aerosol Inhaler 2 puff INHALATION BID RF: 0 ipratropium-albuterol 0.5 mg-3 mg(2.5 mg base)/3 mL Solution For Nebulization 3 ml INHALATION QID PRN (Reason: Shortness Of Breath) Qty: 180 RF: 0 (DME) glucometer See Rx Instructions .Route .MEDSUPPLY Qty: 1 RF: 0 insulin aspart U-100 [Novolog Flexpen U-100 Insulin] 100 unit/mL (3 mL) insulin pen See Rx Instructions .ROUTE .COMPLEX Qty: 15 RF: 0 Combivent Respimat 20-100 mcg/actuation mist 1 puff inhalation Q6H PRN (Reason: Shortness Of Breath) RF: 0 sulfamethoxazole-trimethoprim 800-160 mg tablet See Rx Instructions .ROUTE .COMPLEX RF: 0 Changed prednisone 5 mg Tablet 10 mg PO DAILY Qty: 60 RF: 0 Discharge Orders: Discharge Order (Routine); Ordered 08/08/20 Ordered By: Doris Jc Referrals: Ta Salas MD [Primary Care Provider] - 08/11/20 2:30 pm (This will be a telehealth appointment. The office will call you a few minutes before your appointment.) Discharge Diet: Usual diet Discharge Activity: Increase activity as tolerated Patient Instructions: Prednisone (By mouth), Hypoglycemia, How to Stop Smoking (GEN), Cigarette Smoking and Your Health (GEN), Chronic Obstructive Pulmonary Disease (GEN), COPD Stoplight, Opioid Safety Activity Restrictions/Additional Instructions: You presented with acute respiratory distress and had elevated carbon dioxide and low oxygen levels. You were treated initially with BiPAP. You had quick improvement from mentation and respiratory status with this and breathing treatment plus steroids. I am increasing your regular prednisone to 10 mg daily. Recommend consideration for follow-up with pulmonology to optimize management and adjust therapy. You indicated that her trilogy device and/or mask are not working and that Irene was aware of it. You can continue your usual oxygen. You are strongly encouraged to quit smoking. Take your medications as prescribed. Keep follow-up appointments with your providers. Discharge Attestations Time Spent in Discharge Care*: greater than 30 min Specific Discharge Activities: educating patient, discussing with special education case manager/social workers/dc planners, documenting/other paperwork and evaluating patient/reviewing data Quality Metrics Clinical Quality Measures During this hospital stay, did patient experience: None Coding Level of Care Code Acute Chg FW DC note Diagnoses Acute and chronic respiratory failure with hypercapnia J96.22 BMI less than 19,adult Z68.1 Protein-calorie malnutrition, moderate E44.0 Chronic steroid use Nicotine addiction F17.218 Nicotine product type: cigarettes Substance use status: other nicotine-induced disorder HIV (human immunodeficiency virus infection) Z21 HIV symptom status: asymptomatic
[2020-08-08 08:46] LABS: Glucose Point of Care 231 mg/dL (70-110)
[2020-08-08 11:16] LABS: Glucose Point of Care 195 mg/dL (70-110)
--- NOTE | 2020-08-08 12:47 | PC.CHAP ---
Pastoral Care Encounter/Spiritual Assessment Type of Contact [] Declined stenotypist visit [] Patient/Family/Request visit [] Outpatient visit [] Follow-up visit [] Physician referral [] Code/Alert [] Routine visit [] Staff referral [] Actively dying [xx] Patient sleeping [] Family support [] [] Out of room [] Palliative care [] [] Receiving care in room [] Pre-surgical visit [] Trauma [] Long length of stay [] ICU visit [] Other: Relational/Emotional Strength [] Patient feels connected with others/family/visitors/staff [] Distress [] Loneliness/isolation [] Abandonment Spirituality of Patient [] Person of Thea [] Attends Baptist of their Thea [] Believes in Prayer [] Reads Bible or Yazdanism materials [] There are Spiritual issues to be addressed Arch Cushion Skiving Machine Operator Interventions [] Prayer [] Active listening [] Non-anxious presence [] Spiritual/emotional support [] Crisis/trauma care [] Spiritual counseling [] Bereavement support [] Provided bereavement packet [] Provided Bible/devotional materials [] Provided toy/stuffed animal, coloring book to patient or family member [] Provided Communion [] Anointing/[place] [] Salvation [] Completed spiritual assessment [] Other: Impact on Illness or Injury [] Angry [] Fearful [] Anxious [] Often cries [] Exhaustion [] Unable to work [] Unable to attend judaism [] Unable to walk/stand [] Unable to read [] Unable to drive [] Unable to eat/drink [] Unable to sleep [] Unable to be with family [] Patient intubated [] Other: Summary Nurse asked that patient not be disturbed today as she is sleeping. Follow up later. Time spent with patient
--- NOTE | 2020-08-10 18:25 | PC.NURSE ---
Tristen Attempted to notify patient that medication was left at the hospital. Left her a voicemail requesting that she call the floor, medication placed in 2N pyxis.
== END 2020-08-08 16:40 | disposition home or self-care (01) ==
LOC: ER 19:34 → MEDSURG 08-07 07:30
PROVIDERS: Admitting Provider Internal Medicine; Emergency Provider Emergency Medicine; PCP Family Medicine; Visit Provider Hospitalist
DX: J96.22 Acute and chronic respiratory failure with hypercapnia (principal); E44.0 Moderate protein-calorie malnutrition; Z68.1 Body mass index [BMI] 19.9 or less, adult; F17.218 Nicotine dependence, cigarettes, with other nicotine-induced disorders; Z21 Asymptomatic human immunodeficiency virus [HIV] infection status; R60.9 Edema, unspecified; Z99.81 Dependence on supplemental oxygen; Z79.82 Long term (current) use of aspirin; J44.9 Chronic obstructive pulmonary disease, unspecified
CPT/HCPCS: 36415; 36416; 36600; 51702; 71045; 80048; 80051; 80053; 81003; 82330; 82803; 82805; 82962; 83605; 83735; 83880; 85025; 85378; 93005; 93970; 94640; 94660; 94664; 96360; 96361; 96372; 99285; G0378; J1650; J1815; J2930; J7512; J7611; J7626

== ENCOUNTER 2020-08-17 21:02 | Emergency (ER) | payer MEDICAID, SELFPAY ==
[2020-08-17 21:22] VITALS: BP 149/86; PULSE 116; RESP 18; TEMP 37.1; O2SAT 95; BMI 24.1
--- NOTE | 2020-08-17 21:31 | XRR_ITS ---
PROCEDURE INFORMATION: Exam: XR Chest Exam date and time: 08/17/2020 9:41 PM Age: 59 years old Clinical indication: Dyspnea; Additional info: SOB TECHNIQUE: Imaging protocol: XR of the chest. Views: 1 view. COMPARISON: CR XR chest 1V portable [id number] 08/06/2020 4:36 PM FINDINGS: Lungs: Unremarkable. No consolidation. Pleural spaces: Unremarkable. No pleural effusion. No pneumothorax. Heart/Mediastinum: Unremarkable. No cardiomegaly. Bones/joints: Healed left 9th rib fracture. XR/XR chest 1V portable [id number] IMPRESSION: No acute disease.
--- NOTE | 2020-08-17 21:35 | ED_ITS ---
HPI - SOB/Dyspnea General: Chief Complaint: Shortness of Breath/Dyspnea Stated Complaint: SOB Time Seen by Provider: 08/17/20 21:24 Source: patient Mode of arrival: ambulatory Limitations: no limitations History of Present Illness: HPI Narrative: 59-year-old female with a long history of COPD presents here with shortness of breath. States she supposed to wear CPAP at night but it has been broken for months and is causing her increasing shortness of breath. Here she is stable on her 2 L that she wears all the time. She has had no cough or fever. Patient is able speak in full sentences here with no distress. She denies any worsening improving factors. MD elicited complaint: shortness of breath and asthma attack Associated symptoms: Deny abdominal pain, chest pain, fever(s), nausea or vomiting Review of Systems Const: Denies: fever(s), chills, body aches or change in appetite Eyes: Denies: blurry vision or eye discomfort ENMT: Denies: throat pain or dental pain Card: Denies: chest pain Resp: Reports: dyspnea GI: Denies: abdominal pain, nausea, vomiting or diarrhea : Denies: dysuria Musc: Denies: neck pain or back pain Skin/Breast: Denies: rash Neuro: Denies: headache(s) Psych: Denies: depression Yazan/Lymph: Denies: easy bruising All/Imm: Denies: urticaria PFSH ED 2 PFSH: Medical History CHF (congestive heart failure) Ejection fraction 57% on echocardiogram done 05/15/2020 Chronic respiratory failure with hypoxia and hypercapnia COPD (chronic obstructive pulmonary disease) Edema of left lower extremity GERD (gastroesophageal reflux disease) HIV (human immunodeficiency virus infection) Nicotine addiction Protein calorie malnutrition Surgical History H/O laparoscopy History of History of hysterectomy Family History Mother COPD (chronic obstructive pulmonary disease) Father CAD (coronary artery disease) Social History Smoking and tobacco status: current every day smoker cigarettes Years cigarettes smoked: 50 [ Other cigarette details: Hx of 1 PPD x 15 Years ] Second hand smoke exposure: Yes Alcohol intake: current Alcohol intake frequency: holidays/special occasions only Lives independently: Yes Household members: none Marital status: / Current occupational status: disabled History of recent travel: No Current gender identity: Female Female Reproductive History: Date of last menstrual period: 06/27/20 Physical Exam Const: COMMON NORMALS: no acute distress, patient oriented x3 and healthy appearing HENMT: COMMON NORMALS: normocephalic and atraumatic HEAD & SCALP: normocephalic and atraumatic Eye: COMMON NORMALS: Equal, round and reactive pupils present and EOMs intact bilaterally PUPIL: Yes Equal, round and reactive pupils present Neck/C-Spine: COMMON NORMALS: full ROM and supple Chest: COMMONS NORMALS: normal inspection of the chest and normal palpation of entire chest wall Resp: COMMON NORMALS: normal respiratory effort, No retractions and No use of accessory muscles AUSCULTATION: wheezes Cardio: COMMON NORMALS: regular rate, regular rhythm and No murmurs present (Cardio) RATE: regular rate RHYTHM: regular rhythm GI: COMMON NORMALS: Normal to inspection, nondistended, normoactive bowel sounds present, Soft to palpation, non-tender and no masses PALPATION: Yes Soft to palpation Extremity: COMMON NORMALS: normal to inspection and full ROM Neuro: COMMON NORMALS: patient oriented x3, moves all extremities and no focal motor deficits Psych: COMMON NORMALS: mental status grossly normal, Normal thought process present and cooperative THOUGHT PROCESS: Normal thought process present Skin: COMMON NORMALS: no rashes or lesions noted and no wounds GENERAL SKIN EXAM: no rashes or lesions noted Course Vital Signs: Vital signs: Vital Signs Temperature 98.8 F 08/17/20 21:22 Pulse Rate 121 H 08/17/20 21:58 Respiratory Rate 17 08/17/20 21:58 Blood Pressure 149/86 08/17/20 21:58 Pulse Oximetry 100 08/17/20 21:58 MDM - SOB/Dyspnea MDM Narrative: Medical decision making narrative: Adore presents with a COPD exacerbation. Is here and x-ray shows no signs of pneumonia. She is improved after breathing treatment will prescribe her steroids for home. She is continue breathing treatments at home. She is to follow-up with her PCP and return if worsening. Lab Data: Labs: Lab Results 08/17/20 08/17/20 08/17/20 Range/Units 21:57 21:57 22:23 WBC 7.8 (4.0-10.0) 10^3/ uL RBC 4.59 (4.1-5.3) 10^6/u L Hgb 13.2 (11.5-15.3) g/dL Hct 42.8 (37.0-47.0) % MCV 93.2 (81-99) fL MCH 28.8 (28.0-34.0) pg MCHC 30.8 (30.0-36.0) g/dL RDW 13.2 (12.1-15.1) % Plt Count 246 (130-400) 10^3/c mm MPV 10.4 (7.4-10.4) fL Neut % (Auto) 75.9 % Lymph % (Auto) 12.2 % [place] % (Auto) 9.9 % Eos % (Auto) 1.0 % Baso % (Auto) 0.6 % Neut # (Auto) 5.91 (1.8-7.7) 10^3/u L Lymph # (Auto) 1.0 (0.8-4.8) 10^3/u L [place] # (Auto) 0.8 (0.2-0.9) 10^3/u L Eos # (Auto) 0.1 (0.0-0.8) 10^3/u L Baso # (Auto) 0.1 (0.0-0.1) 10^3/u L Nucleated RBC % (a uto) 0 % Nucleated RBCs # 0.0 /100WBC PT 12.40 (12.1-14.9) SECO NDS INR 0.89 (0.8-1.2) Sodium Cancelled Potassium Cancelled Chloride Cancelled Carbon Dioxide Cancelled Anion Gap Cancelled BUN Cancelled Creatinine Cancelled GFR Calculation Cancelled Glucose Cancelled Calculated Osmolal ity Cancelled Calcium Cancelled Total Bilirubin Cancelled AST Cancelled ALT Cancelled Alkaline Phosphata se Cancelled NT-Pro-B Natriuret Pep Cancelled Total Protein Cancelled Albumin Cancelled Globulin Cancelled 08/17/20 Range/Units 22:23 WBC (4.0-10.0) 10^3/ uL RBC (4.1-5.3) 10^6/u L Hgb (11.5-15.3) g/dL Hct (37.0-47.0) % MCV (81-99) fL MCH (28.0-34.0) pg MCHC (30.0-36.0) g/dL RDW (12.1-15.1) % Plt Count (130-400) 10^3/c mm MPV (7.4-10.4) fL Neut % (Auto) % Lymph % (Auto) % [place] % (Auto) % Eos % (Auto) % Baso % (Auto) % Neut # (Auto) (1.8-7.7) 10^3/u L Lymph # (Auto) (0.8-4.8) 10^3/u L [place] # (Auto) (0.2-0.9) 10^3/u L Eos # (Auto) (0.0-0.8) 10^3/u L Baso # (Auto) (0.0-0.1) 10^3/u L Nucleated RBC % (a uto) % Nucleated RBCs # /100WBC PT (12.1-14.9) SECO NDS INR (0.8-1.2) Sodium 135 L Potassium 4.7 Chloride 88 L Carbon Dioxide 38 H Anion Gap 13.7 BUN 29 H Creatinine 0.6 GFR Calculation 102.7 Glucose 241 H Calculated Osmolal ity 294 Calcium 8.8 Total Bilirubin 0.5 AST 24 ALT 18 Alkaline Phosphata se 53 NT-Pro-B Natriuret Pep 963 H Total Protein 6.3 L Albumin 3.6 Globulin 2.7 Imaging Data^: CXR: Attestation: I personally reviewed and interpreted this imaging study as follows: My impression: no acute abnormality EKG Data^: EKG 1: Attestation: I personally reviewed and interpreted this EKG as follows: EKG Interpretation Date: 08/17/20 EKG interpretation time: 22:55 Interpretation: sinus tach hr [address] or t wave abnormalities qrs 79 qtc 375 Discharge Plan Discharge Patient Disposition: Home Clinical Impression: Acute exacerbation of chronic obstructive airways disease Condition: Stable Prescriptions: New prednisone 50 mg tablet 50 mg PO DAILY Qty: 5 RF: 0 No Action montelukast [Singulair] 10 mg tablet 10 mg PO DAILY RF: 0 albuterol sulfate [ProAir HFA] 90 mcg/actuation HFA aerosol inhaler 2 puff INHALATION Q4H PRN (Reason: Shortness Of Breath) RF: 0 Biktarvy 50-200-25 mg tablet 1 tab PO DAILY RF: 0 aspirin 81 mg Tablet,Delayed Release (Dr/Ec) 81 mg PO DAILY RF: 0 furosemide [Lasix] 20 mg tablet 20 mg PO DAILY PRN (Reason: Edema) Qty: 30 RF: 0 Spiriva with HandiHaler 18 mcg Capsule, W/Inhalation Device 1 cap INHALATION DAILY RF: 0 budesonide-formoterol [Symbicort] 160-4.5 mcg/actuation Hfa Aerosol Inhaler 2 puff INHALATION BID RF: 0 ipratropium-albuterol 0.5 mg-3 mg(2.5 mg base)/3 mL Solution For Nebulization 3 ml INHALATION QID PRN (Reason: Shortness Of Breath) Qty: 180 RF: 0 (DME) glucometer See Rx Instructions .Route .MEDSUPPLY Qty: 1 RF: 0 insulin aspart U-100 [Novolog Flexpen U-100 Insulin] 100 unit/mL (3 mL) insulin pen See Rx Instructions .ROUTE .COMPLEX Qty: 15 RF: 0 Combivent Respimat 20-100 mcg/actuation mist 1 puff inhalation Q6H PRN (Reason: Shortness Of Breath) RF: 0 sulfamethoxazole-trimethoprim 800-160 mg tablet See Rx Instructions .ROUTE .COMPLEX RF: 0 prednisone 5 mg Tablet 10 mg PO DAILY Qty: 60 RF: 0 Discharge Orders: Discharge ED (Routine); Ordered 08/17/20 Ordered By: Jesus Grant Referrals: Ta Salas MD [Primary Care Provider] - 1-3 days Discharge Diet: Advance as tolerated Discharge Activity: Resume usual activity Patient Instructions: Chronic Obstructive Pulmonary Disease (ED) Coding Level of Care Code ED Major Case Detective for Chg Fwd Exam Comprehensive
[2020-08-17 21:48] VITALS: PULSE 116; RESP 22; O2SAT 100
[2020-08-17] MEDS: ipratropium-albuterol 3 mL Neb INHALATION (21:48)
[2020-08-17 21:55] VITALS: PULSE 110; RESP 20; O2SAT 100
[2020-08-17 21:58] VITALS: BP 149/86; PULSE 121; RESP 17; O2SAT 100
[2020-08-17 22:03] LABS: Basophils # 0.1 10^3/uL (0.0-0.1); Basophils % 0.6 %; Eosinophils # 0.1 10^3/uL (0.0-0.8); Hematocrit 42.8 % (37.0-47.0); Hemoglobin 13.2 g/dL (11.5-15.3); Lymphocytes % 12.2 %; Mean Corpuscular HGB Conc 30.8 g/dL (30.0-36.0); Mean Corpuscular Hemoglobin 28.8 pg (28.0-34.0); Mean Corpuscular Volume 93.2 fL (81-99); Mean Platelet Volume 10.4 fL (7.4-10.4); Monocytes # 0.8 10^3/uL (0.2-0.9); Monocytes % 9.9 %; Neutrophils # 5.91 10^3/uL (1.8-7.7); Neutrophils % 75.9 %; Nucleated Red Blood Cells % 0 %; Platelet Count 246 10^3/cmm (130-400); Red Blood Count 4.59 10^6/uL (4.1-5.3); Red Cell Distribution Width 13.2 % (12.1-15.1); White Blood Count 7.8 10^3/uL (4.0-10.0)
[2020-08-17 22:46] LABS: INR 0.89 (0.8-1.2)
--- NOTE | 2020-08-17 22:46 | ECG_ITS ---
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 Measurements Intervals [place] Rate: 116 P: 87 LA: 140 QRS: 85 QRSD: 86 T: 79 QT: 324 QTc: 450 Interpretive Statements SINUS TACHYCARDIA POSSIBLE RIGHT ATRIAL ENLARGEMENT [0.25mV P WAVE] POSSIBLE LEFT ATRIAL ENLARGEMENT [-0.1mV P WAVE IN V1/V2] Compared to ECG 08/30/2020 16:59:27 ST (T wave) deviation no longer present Electronically Signed On 08-31-2020 22:14:34 CDT by Mingo Donahue M.D. [id number]
[2020-08-17 23:07] LABS: Alanine Aminotransferase 18 U/L (0-33); Albumin Level 3.6 g/dL (3.5-5.2); Alkaline Phosphatase 53 IU/L (35-105); Blood Urea Nitrogen 29 mg/dL (6-20); Calcium 8.8 mg/dL (8.5-10.5); Carbon Dioxide 38 mmol/L (22-29); Chloride 88 mmol/L (98-107); Globulin 2.7 g/dL (1.3-4.6); Glomerular Filtration Rate 102.7 mL/min (90-130); Glucose 241 mg/dL (65-115); NT Pro B Type Natriuretic Pept 963 pg/mL (0-125); Osmolality Calculated 294 mOsm/kg (285-295); Sodium 135 mmol/L (136-145); Total Bilirubin 0.5 mg/dL (0.15-1.2); Total Protein 6.3 g/dL (6.6-8.7)
[2020-08-17 23:09] LABS: Anion Gap 13.7 (5-19); Aspartate Amino Transferase 24 U/L (0-32); Potassium 4.7 mmol/L (3.5-5.1)
--- NOTE | 2020-08-17 23:56 | PC.NURSE ---
pt transport contacted through [employer]. trip number [id number].
--- NOTE | 2020-08-18 04:35 | PC.NURSE ---
Called [facility] to check on the status of ride, it has been 4 hours since the ride was set up and the patient was discharged. Patient is unable to be moved to the waiting room to wait for ride due to the need for continuous oxygen.
== END 2020-08-18 08:57 | disposition home or self-care (01) ==
PROVIDERS: Emergency Provider Emergency Medicine; PCP Family Medicine
DX: J44.1 Chronic obstructive pulmonary disease with (acute) exacerbation (principal); J96.11 Chronic respiratory failure with hypoxia; J96.12 Chronic respiratory failure with hypercapnia; Z21 Asymptomatic human immunodeficiency virus [HIV] infection status; I50.9 Heart failure, unspecified; F17.210 Nicotine dependence, cigarettes, uncomplicated; Z79.4 Long term (current) use of insulin; Z79.82 Long term (current) use of aspirin; Z79.52 Long term (current) use of systemic steroids
CPT/HCPCS: 36415; 71045; 80053; 83880; 85025; 85610; 93005; 94640; 96374; 99284; J2930; J7611

== ENCOUNTER 2020-08-29 13:28 | Inpatient (IN) | payer MEDICAID, SELFPAY ==
[2020-08-29] VITALS (29 sets, daily range): BP systolic 80–150; BP diastolic 63–88; PULSE 0–154; RESP 14–39; TEMP 36.7; O2SAT 91–100; BMI 16.6
--- NOTE | 2020-08-29 13:36 | XR_ITS ---
WS: [id number] Portable AP upright chest, 08/29/2020 Clinical Data: hypoxia/copd/resp distress Comparison: Portable chest, 08/17/2020. Findings: Diaphragms are flattened. There is a healed left lateral ninth rib fracture. Monitor leads are on the chest wall. The pulmonary vascularity is not increased. No pneumonia or pneumothorax is se en. The heart is normal. XR/XR chest 1V portable [id number] Impression: Hyperinflation.
--- NOTE | 2020-08-29 13:39 | ECG_ITS ---
[facility] Test Date: 2020-08-29 Pat Name: Adore Broussard Department: Room: Gender: Female [employer]: : 1960 Requested By: Ronnell Terry Order Number: [id number] Cherelle MD: ZIGGY KANG Measurements Intervals [place] Rate: 124 P: 87 OK: 120 QRS: 88 QRSD: 76 T: 89 QT: 275 QTc: 396 Interpretive Statements SINUS TACHYCARDIA ABNORMAL RHYTHM ECG Compared to ECG 08/06/2020 16:23:36 Short OK interval no longer present Electronically Signed On 08-30-2020 20:21:49 CDT by ZIGGY KANG [id number]
--- NOTE | 2020-08-29 13:43 | W.ED.SOB ---
HPI - SOB/Dyspnea General: Chief Complaint: Shortness of Breath/Dyspnea Stated Complaint: SOB/ WEAKNESS Time Seen by Provider: 08/29/20 13:33 History of Present Illness: HPI Narrative: The patient is a 59-year-old female with past medical history COPD, chronic respiratory failure, CHF, HIV. She says she has been having increasing shortness of breath and called EMS. They noted that she was on her chronic 2 L that she uses at 88%. She has increased work of breathing and says she needs to be on BiPAP. She has frequent visits for this. She also says she is swollen and has 2+ pitting edema to lower extremities she says her hands are swollen as well. MD elicited complaint: shortness of breath Pertinent past history: COPD, congestive heart failure and HIV Severity: moderate Exacerbating factors: exertion Relieving factors: oxygen and rest Known history of: COPD, congestive heart failure and HIV Associated symptoms: Reports chest congestion and cough; Deny chest pain, dizziness, extremity pain, fever(s), nausea, polyuria or vomiting Treatment prior to arrival: oxygen Review of Systems General: Reports: 10 or more systems reviewed and unremarkable except in HPI and below Const: Denies: fever(s) Eyes: Denies: change in vision, blurry vision or eye redness ENMT: Denies: throat pain, swelling of lips/tongue, ear or mastoid pain or nasal congestion Card: Denies: chest pain Resp: Reports: dyspnea, non-productive cough, wheezing and chest congestion; Denies: productive cough GI: Denies: nausea or vomiting : Denies: flank pain, difficulty voiding, urinary frequency or urinary urgency Musc: Denies: neck pain, back pain, extremity pain, joint pain, joint redness, limited range of motion or muscle weakness Skin/Breast: Denies: rash, pruritus, erythema, skin pain or skin tenderness Neuro: Denies: headache(s), numbness in extremities, weakness in extremities, sensory changes, difficulty walking, dizziness, confusion or Slurred speech present Psych: Denies: anxiety or depression Endo: Denies: polyuria All/Imm: Denies: urticaria, throat swelling or tongue swelling PFSH ED PFSH: Medical History CHF (congestive heart failure) Ejection fraction 57% on echocardiogram done 05/15/2020 Chronic respiratory failure with hypoxia and hypercapnia COPD (chronic obstructive pulmonary disease) Edema of left lower extremity GERD (gastroesophageal reflux disease) HIV (human immunodeficiency virus infection) Nicotine addiction Protein calorie malnutrition Surgical History H/O laparoscopy History of History of hysterectomy Family History Mother COPD (chronic obstructive pulmonary disease) Father CAD (coronary artery disease) Social History Smoking and tobacco status: current every day smoker cigarettes Years cigarettes smoked: 50 [ Other cigarette details: Hx of 1 PPD x 15 Years ] Second hand smoke exposure: Yes Alcohol intake: current Alcohol intake frequency: holidays/special occasions only Lives independently: Yes Household members: none Marital status: / Current occupational status: disabled History of recent travel: No Current gender identity: Female Female Reproductive History: Date of last menstrual period: 06/27/20 Physical Exam Narrative: EXAM NARRATIVE: Patient in mild respiratory distress, tachypnea, shallow respirations, wheezing. 2+ pitting edema to extremities Const: COMMON NORMALS: no acute distress, average body habitus, patient oriented x3, no limitations, healthy appearing, alert and well nourished GENERAL APPEARANCE: cooperative, comfortable, well kempt and well developed ORIENTATION/CONSCIOUSNESS: Yes awake, Yes oriented to person, Yes oriented to place and Yes oriented to time HENMT: COMMON NORMALS: normocephalic, external ears normal and Normal external nose present HEAD & SCALP: normal to inspection and normocephalic NOSE: Normal external nose present EXTERNAL EAR: Yes external ears normal MOUTH: Normal oral and palatal mucosa present THROAT: posterior oropharynx normal Eye: COMMON NORMALS: Equal, round and reactive pupils present and EOMs intact bilaterally GENERAL EYE: appearance normal, both eyes and all related structures PUPIL: Yes Equal, round and reactive pupils present Neck/C-Spine: COMMON NORMALS: full ROM, no lymphadenopathy, no meningeal signs and no JVD GENERAL: Yes normal visual inspection Lymph: LYMPHATIC: no lymphadenopathy noted Chest: COMMONS NORMALS: normal inspection of the chest and normal palpation of entire chest wall Resp: EFFORT & INSPECTION: Yes able to speak in complete sentences, Yes tachypneic, Yes respiratory distress (mild), Yes pursed lip breathing, Yes labored, Yes retractions and Yes uses accessory muscles AUSCULTATION: wheezes and diminished lung sounds Cardio: COMMON NORMALS: no JVD, regular rate, regular rhythm, S1 normal heart sound present, S2 normal heart sound present and Peripheral pulses 2+ throughout RATE: regular rate RHYTHM: regular rhythm HEART SOUNDS: S1 normal heart sound present and S2 normal heart sound present PERIPHERAL PULSES: Peripheral pulses 2+ throughout GI: COMMON NORMALS: Normal to inspection, nondistended, normoactive bowel sounds present, Soft to palpation, non-tender and no masses INSPECTION: Yes normal to inspection PALPATION: Yes Soft to palpation : COMMON NORMALS: Yes no CVA tenderness BLADDER/KIDNEY EXAM: Yes no CVA tenderness Back/Pelvis: COMMON NORMALS: no CVA tenderness, thoracic and lumbar spine normal to inspection, no thoracic nor lumbar tenderness and thoraco-lumbar ROM normal Extremity: COMMON NORMALS: normal to inspection, full ROM, capillary refill normal, no joint enlargement and no pedal edema GENERAL: Yes normal exam except as noted Neuro: COMMON NORMALS: patient oriented x3, CN's II-XII intact bilaterally, moves all extremities, no focal motor deficits, no sensory deficits noted and gait normal SENSORIUM/ORIENTATION: Yes alert, Yes oriented to person, Yes oriented to place and Yes oriented to time MENINGEAL SIGNS: Yes no meningeal signs Psych: COMMON NORMALS: mental status grossly normal, Normal thought process present, cooperative, normal affect and speech normal APPEARANCE: Yes well kempt ATTITUDE: Yes calm SPEECH: Yes normal speech THOUGHT PROCESS: Normal thought process present Skin: COMMON NORMALS: no rashes or lesions noted GENERAL SKIN EXAM: no rashes or lesions noted Course Vital Signs: Vital signs: Vital Signs Temperature 98.1 F 08/29/20 13:31 Pulse Rate 124 H 08/29/20 16:54 Respiratory Rate 24 H 08/29/20 14:13 Blood Pressure 150/82 08/29/20 16:29 Pulse Oximetry 100 08/29/20 16:54 MDM - SOB/Dyspnea MDM Narrative: Medical decision making narrative: Patient comes to the ER with her typical presentation of acute on chronic respiratory failure, edema, and elevated CO2 with respiratory acidosis. She was placed on BiPAP and refused to tolerate it. She was given Ativan and placed back on it. Discussed with Dr. Bundy who accepts for admission to the ICU Lab Data: Labs: Lab Results 08/29/20 08/29/20 08/29/20 Range/Units 13:50 14:00 14:00 WBC 6.5 (4.0-10.0) 10^3/ uL RBC 4.19 (4.1-5.3) 10^6/u L Hgb 11.8 (11.5-15.3) g/dL Hct 39.5 (37.0-47.0) % MCV 94.3 (81-99) fL MCH 28.2 (28.0-34.0) pg MCHC 29.9 L (30.0-36.0) g/dL RDW 13.1 (12.1-15.1) % Plt Count 194 (130-400) 10^3/c mm MPV 10.2 (7.4-10.4) fL Neut % (Auto) 84.8 % Lymph % (Auto) 7.4 % [place] % (Auto) 6.0 % Eos % (Auto) 0.5 % Baso % (Auto) 0.8 % Neut # (Auto) 5.55 (1.8-7.7) 10^3/u L Lymph # (Auto) 0.5 L (0.8-4.8) 10^3/u L [place] # (Auto) 0.4 (0.2-0.9) 10^3/u L Eos # (Auto) 0.0 (0.0-0.8) 10^3/u L Baso # (Auto) 0.1 (0.0-0.1) 10^3/u L Nucleated RBC % (a uto) 0 % Nucleated RBCs # 0.0 /100WBC Specimen Type Arterial Sample Site Radial, left ABG pH 7.33 L (7.35-7.45) ABG pCO2 99.5 H* (35-45) mmHg ABG pO2 66.0 L (80.0-100.0) mmH g ABG HCO3 52.8 H (22-26) mmol/L ABG Base Excess 21.9 H (-2.0-2.0) mmol/ L Adrian Test Pos Hematocrit 37.4 (37-47) % Hgb O2 Saturation 93.2 L (95-100) % Carboxyhemoglobin 1.4 (0.4-20.1) %THgb Methemoglobin 0.5 (0.4-1.5) % Total Hemoglobin 12.2 (12-16) g/dL O2 Delivery Device Nc O2 Liters/Min 3.5 % FiO2 34.0 % Machine Milker ID glc Sodium 133 L (136-145) mmol/L Potassium 4.9 (3.5-5.1) mmol/L Chloride 86 L (98-107) mmol/L Carbon Dioxide 46 H* (22-29) mmol/L Anion Gap 5.9 (5-19) BUN 12 (6-20) mg/dL Creatinine 0.5 (0.5-0.9) mg/dL GFR Calculation 126.7 (90-130) mL/min Glucose 413 H (65-115) mg/dL Calculated Osmolal ity 293 (285-295) mOsm/k g Lactic Acid (0.5-2.2) mmol/L Calcium 8.2 L (8.5-10.5) mg/dL Total Bilirubin 0.6 (0.15-1.2) mg/dL AST 19 (0-32) U/L ALT 19 (0-33) U/L Alkaline Phosphata se 50 (35-105) IU/L Troponin T Baselin e (0-10) ng/L NT-Pro-B Natriuret Pep 771 H (0-125) pg/mL Total Protein 5.0 L (6.6-8.7) g/dL Albumin 3.2 L (3.5-5.2) g/dL Globulin 1.8 (1.3-4.6) g/dL Urine Color (Yellow) Urine Appearance (CLEAR) Urine pH (5-7) Ur Specific Gravit y (1.005-1.030) Urine Protein (Negative) Urine Glucose (UA) (Normal) Urine Ketones (Negative) Urine Blood (Negative) Urine Nitrate (Negative) Urine Bilirubin (Negative) Urine Urobilinogen (Negative) mg/dL Ur Leukocyte [place] ase (Negative) 08/29/20 08/29/20 08/29/20 Range/Units 14:00 14:00 14:37 WBC (4.0-10.0) 10^3/ uL RBC (4.1-5.3) 10^6/u L Hgb (11.5-15.3) g/dL Hct (37.0-47.0) % MCV (81-99) fL MCH (28.0-34.0) pg MCHC (30.0-36.0) g/dL RDW (12.1-15.1) % Plt Count (130-400) 10^3/c mm MPV (7.4-10.4) fL Neut % (Auto) % Lymph % (Auto) % [place] % (Auto) % Eos % (Auto) % Baso % (Auto) % Neut # (Auto) (1.8-7.7) 10^3/u L Lymph # (Auto) (0.8-4.8) 10^3/u L [place] # (Auto) (0.2-0.9) 10^3/u L Eos # (Auto) (0.0-0.8) 10^3/u L Baso # (Auto) (0.0-0.1) 10^3/u L Nucleated RBC % (a uto) % Nucleated RBCs # /100WBC Specimen Type Sample Site ABG pH (7.35-7.45) ABG pCO2 (35-45) mmHg ABG pO2 (80.0-100.0) mmH g ABG HCO3 (22-26) mmol/L ABG Base Excess (-2.0-2.0) mmol/ L Adrian Test Hematocrit (37-47) % Hgb O2 Saturation (95-100) % Carboxyhemoglobin (0.4-20.1) %THgb Methemoglobin (0.4-1.5) % Total Hemoglobin (12-16) g/dL O2 Delivery Device O2 Liters/Min % FiO2 % Machine Milker ID Sodium (136-145) mmol/L Potassium (3.5-5.1) mmol/L Chloride (98-107) mmol/L Carbon Dioxide (22-29) mmol/L Anion Gap (5-19) BUN (6-20) mg/dL Creatinine (0.5-0.9) mg/dL GFR Calculation (90-130) mL/min Glucose (65-115) mg/dL Calculated Osmolal ity (285-295) mOsm/k g Lactic Acid 1.9 (0.5-2.2) mmol/L Calcium (8.5-10.5) mg/dL Total Bilirubin (0.15-1.2) mg/dL AST (0-32) U/L ALT (0-33) U/L Alkaline Phosphata se (35-105) IU/L Troponin T Baselin e 51 H (0-10) ng/L NT-Pro-B Natriuret Pep (0-125) pg/mL Total Protein (6.6-8.7) g/dL Albumin (3.5-5.2) g/dL Globulin (1.3-4.6) g/dL Urine Color Straw (Yellow) Urine Appearance Clear (CLEAR) Urine pH 6.5 (5-7) Ur Specific Gravit y 1.010 (1.005-1.030) Urine Protein Neg (Negative) Urine Glucose (UA) 4+ H (Normal) Urine Ketones Negative (Negative) Urine Blood Neg (Negative) Urine Nitrate Negative (Negative) Urine Bilirubin Neg (Negative) Urine Urobilinogen Norm (Negative) mg/dL Ur Leukocyte [place] ase Negative (Negative) Discharge Plan Discharge Patient Disposition: Admitted As Inpatient Admit Provider: Lin Bundy Clinical Impression: Chronic respiratory failure with hypoxia and hypercapnia, Acute exacerbation of chronic obstructive airways disease, Congestive heart failure Condition: Stable Coding Level of Care Code ED 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
[2020-08-29 13:59] LABS: ABG PH Result 7.33 (7.35-7.45); Arterial Blood Gas Hematocrit 37.4 % (37-47); Base Excess ABG 21.9 mmol/L (-2.0-2.0); Blood Gas Allen Test Pos; Blood Gas LPM 3.5 %; Blood Gas Operator Identificat glc; Blood Gas Sample Site Radial, left; Blood Gas Sample Type Arterial; Carboxyhemoglobin 1.4 %THgb (0.4-20.1); HCO3 ABG 52.8 mmol/L (22-26); HGB O2 Sat 93.2 % (95-100); Methemoglobin 0.5 % (0.4-1.5); Oxygen Device NC; Total Hemoglobin 12.2 g/dL (12-16)
[2020-08-29 14:00] LABS: ABG PCO2 99.5 mmHg (35-45)
[2020-08-29] MEDS: FUROsemide 10 mg/mL SDV 4mL 40 MG IVP (14:07)
[2020-08-29] MEDS: ipratropium-albuterol 3 mL Neb INHALATION ×2 (14:10→20:34)
[2020-08-29 14:12] LABS: Basophils # 0.1 10^3/uL (0.0-0.1); Basophils % 0.8 %; Eosinophils % 0.5 %; Hematocrit 39.5 % (37.0-47.0); Hemoglobin 11.8 g/dL (11.5-15.3); Lymphocytes # 0.5 10^3/uL (0.8-4.8); Lymphocytes % 7.4 %; Mean Corpuscular HGB Conc 29.9 g/dL (30.0-36.0); Mean Corpuscular Hemoglobin 28.2 pg (28.0-34.0); Mean Corpuscular Volume 94.3 fL (81-99); Mean Platelet Volume 10.2 fL (7.4-10.4); Monocytes # 0.4 10^3/uL (0.2-0.9); Neutrophils # 5.55 10^3/uL (1.8-7.7); Neutrophils % 84.8 %; Nucleated Red Blood Cells % 0 %; Platelet Count 194 10^3/cmm (130-400); Red Blood Count 4.19 10^6/uL (4.1-5.3); Red Cell Distribution Width 13.1 % (12.1-15.1); White Blood Count 6.5 10^3/uL (4.0-10.0)
[2020-08-29 14:36] LABS: Lactic Sepsis W/Reflex 1.9 mmol/L (0.5-2.2)
[2020-08-29 14:41] LABS: Troponin(5th) Baseline 51 ng/L (0-10)
[2020-08-29 14:45] LABS: Add Urine Microscopic? NO; Charge for UA Resulting for Rev
[2020-08-29 14:46] LABS: Alanine Aminotransferase 19 U/L (0-33); Albumin Level 3.2 g/dL (3.5-5.2); Alkaline Phosphatase 50 IU/L (35-105); Aspartate Amino Transferase 19 U/L (0-32); Blood Urea Nitrogen 12 mg/dL (6-20); Calcium 8.2 mg/dL (8.5-10.5); Chloride 86 mmol/L (98-107); Creatinine Clr Calc Pharmacy 86.4404; Globulin 1.8 g/dL (1.3-4.6); Glomerular Filtration Rate 126.7 mL/min (90-130); Glucose 413 mg/dL (65-115); Osmolality Calculated 293 mOsm/kg (285-295); Sodium 133 mmol/L (136-145); Total Bilirubin 0.6 mg/dL (0.15-1.2)
[2020-08-29 14:48] LABS: Anion Gap 5.9 (5-19); NT Pro B Type Natriuretic Pept 771 pg/mL (0-125); Potassium 4.9 mmol/L (3.5-5.1)
[2020-08-29 14:50] LABS: Bilirubin Urine Neg (Negative); Blood Urine Neg (Negative); Glucose Urine UA 4+ (Normal); Ketones Urine Negative (Negative); Leukocyte Esterase Urine Negative (Negative); Nitrate Urine Negative (Negative); Protein Urine Neg (Negative); Urine Appearance Clear (CLEAR); Urine Color Straw (Yellow); Urobilinogen Urine Norm (Negative); pH Urine 6.5 (5-7)
[2020-08-29 14:52] LABS: Carbon Dioxide 46 mmol/L (22-29)
--- NOTE | 2020-08-29 14:58 | PC.NURSE ---
pt very irritable stating she needs lots of water. nursing staff gave pt a small glass of water and she demanded more. nurse explained to pt she is most likely going to be on a fluid restriction and she needs to put her BIPAP. pt refuses to put BIPAP back on stating she wants to go home. ER physician notified and in room to speak with pt.
--- NOTE | 2020-08-29 15:39 | ECG_ITS ---
[facility] Test Date: 2020-08-29 Pat Name: Adore Broussard Department: Room: Gender: Female Analog Design Engineer: : 1960 Requested By: Ronnell Terry Order Number: [id number] Cherelle MD: ZIGGY KANG Measurements Intervals [place] Rate: 124 P: 86 IN: 139 QRS: 88 QRSD: 80 T: 81 QT: 278 QTc: 400 Interpretive Statements SINUS TACHYCARDIA ABNORMAL RHYTHM ECG Compared to ECG 08/29/2020 14:08:12 No significant changes Electronically Signed On 08-30-2020 20:24:48 CDT by ZIGGY KANG [email or web address].[facility].[employer]/store/OM/[id number]
--- NOTE | 2020-08-29 16:08 | PC.PHAR ---
pt states she takes care of her own medications-pt states she has someone from [facility] states they dont set up the pts medications-called [facility] [phone] no answer-medications entered are meds from ext med history and previous entered med list-notes are made in pharmacy comments on each rx
[2020-08-29] MEDS: LORazepam 2 mg/mL INJ 1 mL 0.5 MG IVP (16:35)
[2020-08-29 16:40] LABS: Troponin 5 2HR 51.28 ng/L (0-10); Troponin 5 2HR Delta 0.28 ABS# (0-10)
--- NOTE | 2020-08-29 19:01 | PM.HP ---
Providers/Chief Complaint Admitting Physician: Lin Bundy Primary Care Provider: Ta Salas MD Chief Complaint: SOB/ WEAKNESS History of Present Illness 59 year old with past medical history of medical noncompliance, HIV on Biktarvy, chronic hypoxemic,hypercapnic respiratory failure due to obstructive lung disease on 2-3L of o2 via NC and trilogy who is presenting to ER with respiratory distress. Patient has been admitted multiple time with similar complaints most recently from 08/07 to 08/08. Upon arrival patient was noted to have a PH of 7.33, PCO2 of 99.5, Po2 of 66.2, HCO3 of 52.8, while on 3.5l via NC. WBC of 6.5, hemoglobin of 11.8, hematocrit of 39.5, and platelet count of 194. Sodium of 133, potassium of 4.9, chloride of 86, bicarb of 46, BUN of 12 and creatinine of 0.5. Glucose of 413. In ER patient was given Lasix 40 mg IV x 1, Duo-neb, and Solu-medrol 125mg IV x 1. Review of Systems General: Reports: 10 or more systems reviewed and unremarkable except in HPI and below Medications/Allergies Home Medications Medication Instructions Recorded Confirmed Last Taken Type albuterol sulfate 90 mcg/actuation 2 puff INHALATION Q4H PRN 10/03/19 08/29/20 Unknown History aerosol inhaler montelukast 10 mg tablet 10 mg PO DAILY 10/03/19 08/29/20 08/28/20 History Biktarvy 1 tab PO DAILY 04/23/20 08/29/20 08/28/20 History Spiriva with HandiHaler 1 cap INHALATION DAILY 05/05/20 08/29/20 Unknown History budesonide-formoterol [Symbicort] 2 puff INHALATION BID 05/05/20 08/29/20 Unknown History ipratropium-albuterol 3 ml INHALATION QID PRN #180 ml 05/16/20 08/29/20 Unknown Rx glucometer #1 ea 06/16/20 08/29/20 Unknown Rx insulin aspart U-100 [Novolog See Rx Instructions .ROUTE 06/16/20 08/29/20 08/28/20 Rx Flexpen U-100 Insulin] .COMPLEX #15 ml aspirin 81 mg PO QAM 06/27/20 08/29/2008/28/21 History sulfamethoxazole-trimethoprim See Rx Instructions .ROUTE .COMPLEX 08/06/20 08/29/20 08/27/20 History prednisone 10 mg PO DAILY #60 tab 08/08/20 08/29/20 08/28/20 Rx Lasix 40 mg PO DAILY 08/29/20 08/29/20 08/28/20 History prednisone 50 mg PO DAILY 08/29/20 08/29/20 Unknown History Allergies Allergy/AdvReac Type Severity Reaction Status Date / Time Penicillins Allergy ALGY-Difficulty Verified 08/29/20 16:08 Breathing phenobarbital Allergy ALGY-Hives Verified 08/29/20 16:08 Tetanus Vaccines and Toxoid Allergy ALGY-Hives Verified 08/29/20 16:08 PFSH Acute PFSH: Medical History CHF (congestive heart failure) Ejection fraction 57% on echocardiogram done 05/15/2020 Chronic respiratory failure with hypoxia and hypercapnia COPD (chronic obstructive pulmonary disease) Edema of left lower extremity GERD (gastroesophageal reflux disease) HIV (human immunodeficiency virus infection) Nicotine addiction Protein calorie malnutrition Surgical History H/O laparoscopy History of History of hysterectomy Family History Mother COPD (chronic obstructive pulmonary disease) Father CAD (coronary artery disease) Social History Smoking and tobacco status: current every day smoker cigarettes Years cigarettes smoked: 50 [ Other cigarette details: Hx of 1 PPD x 15 Years ] Second hand smoke exposure: Yes Alcohol intake: current Alcohol intake frequency: holidays/special occasions only Lives independently: Yes Household members: none Marital status: / Current occupational status: disabled History of recent travel: No Current gender identity: Female Female Reproductive History: Date of last menstrual period: 06/27/20 Vitals/I&O/Wt Last Vital Signs Temp 98.1 F 08/29/20 13:31 Pulse 124 H 08/29/20 16:54 Resp 24 H 08/29/20 14:13 BP 150/82 08/29/20 16:29 Pulse Ox 100 08/29/20 16:54 Weight last 48 hrs Weight 39.916 kg Physical Exam Narrative: EXAM NARRATIVE: Chronically ill appearing On bipap Clear to auscultation Soft,nt,nd No edema Urinary Catheter Management^: Angulo: Cath Placed During This Visit: yes Urinary Catheter Date of Insertion: 08/29/20 Urinary Catheter Time of Insertion: 14:25 Data : 08/29/20 14:00 08/29/20 14:00 Micro: Microbiology 08/29/20 13:55 Blood Culture - Preliminary Blood SPECIMEN COLLECTED 08/29/20 14:00 Blood Culture - Preliminary Blood SPECIMEN COLLECTED A&P Assessment and plan (1) Acute exacerbation of chronic obstructive airways disease: On bipap Wean as tolerated Duoneb Symbicort Solu-medrol Status: Acute (2) Acute on chronic respiratory failure with hypoxia and hypercapnia: On triligy at home management as above Rpeat ABG in am Check x-ray noted. Status: Acute (3) Chronic steroid use: Status: Acute (4) HIV (human immunodeficiency virus infection): Resumed home meds. Status: Chronic Qualifiers: HIV symptom status: asymptomatic Qualified Code(s): Z21 - Asymptomatic human immunodeficiency virus [HIV] infection status Attestations Medical Necessity Statement*: Lorna require > 2 midnight stay in hospital for eval and treatment. Time Spent in Patient Care: Greater than 35 minutes (>than 50% of time spent in counselling and/or direct pt care on unit). 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
--- NOTE | 2020-08-29 19:39 | ECG_ITS ---
[facility] Test Date: 2020-08-29 Pat Name: Adore Broussard Department: Room: ICU12 Gender: Female Private Advisor: : 1960 Requested By: Ronnell Terry Order Number: [id number] Reading MD: ZIGGY KANG Measurements Intervals [place] Rate: 123 P: 85 ID: 130 QRS: 85 QRSD: 82 T: 89 QT: 291 QTc: 417 Interpretive Statements SINUS TACHYCARDIA ABNORMAL RHYTHM ECG Compared to ECG 08/29/2020 15:49:17 No significant changes Electronically Signed On 08-30-2020 20:24:32 CDT by ZIGGY KANG [email or web address]/store/[id number]
[2020-08-29 19:46] LABS: Glucose Point of Care 231 mg/dL (70-110)
[2020-08-29] MEDS: famotidine 20 mg Tablet PO (20:03)
[2020-08-29] MEDS: enoxaparin 40 mg/0.4 mL Syringe SUBCUT (20:03)
[2020-08-29] MEDS: acetaminophen 325 mg Tablet 650 MG PO (20:58)
[2020-08-29 21:00] LABS: Troponin 5 6HR 46.57 ng/L (0-10)
[2020-08-29 21:01] LABS: Troponin 5 6HR Delta -4.43 ng/L (0-12)
[2020-08-29] MEDS: HYDROcodone-acetaminophen 5-325 mg Tablet 1 TAB PO (21:23)
[2020-08-30] VITALS (18 sets, daily range): BP systolic 117–171; BP diastolic 74–124; PULSE 103–138; RESP 17–37; TEMP 36.6–36.9; O2SAT 94–100
[2020-08-30] MEDS: aspirin 81 mg EC Tablet PO (05:05)
[2020-08-30 06:52] LABS: Basophils % 0.4 %; Hematocrit 48.3 % (37.0-47.0); Hemoglobin 14.9 g/dL (11.5-15.3); Lymphocytes # 0.5 10^3/uL (0.8-4.8); Lymphocytes % 9.7 %; Mean Corpuscular HGB Conc 30.8 g/dL (30.0-36.0); Mean Corpuscular Hemoglobin 28.4 pg (28.0-34.0); Mean Platelet Volume 10.5 fL (7.4-10.4); Monocytes # 0.2 10^3/uL (0.2-0.9); Monocytes % 4.1 %; Neutrophils # 3.94 10^3/uL (1.8-7.7); Neutrophils % 85.2 %; Nucleated Red Blood Cells % 0 %; Red Blood Count 5.25 10^6/uL (4.1-5.3); Red Cell Distribution Width 13.1 % (12.1-15.1); White Blood Count 4.6 10^3/uL (4.0-10.0)
[2020-08-30 08:31] LABS: Glucose Point of Care 311 mg/dL (70-110)
[2020-08-30] MEDS: montelukast sodium 10 mg Tablet PO (08:40)
[2020-08-30] MEDS: famotidine 20 mg Tablet PO (08:41)
[2020-08-30 08:59] LABS: Platelet Count 177 10^3/cmm (130-400); Slide Review Slide Review Perform
[2020-08-30 11:19] LABS: Glucose Point of Care 85 mg/dL (70-110)
--- NOTE | 2020-08-30 13:22 | PM.PN ---
Subjective Subjective: Interval history: Patient was seen this morning, she tells me that she is feeling a lot better, she tells me that her home trilogy machine is broken, no fevers, chills, does have a cough, she tells me that she is lost weight recently, Vitals/I&O/Wt Last Vital Signs Temp 98.4 F 08/30/20 10:00 Pulse 125 H 08/30/20 12:00 Resp 25 H 08/30/20 12:00 BP 140/77 08/30/20 12:00 Pulse Ox 99 08/30/20 12:00 08/29/20 08/30/20 08/30/20 22:59 06:59 14:59 Intake Total 240 / 240 Output Total 1250 / 1250 Balance -1250 / -1250 240 / 240 Weight last 48 hrs Weight 39.916 kg Physical Exam Const: COMMON NORMALS: no acute distress GENERAL APPEARANCE: frail appearing ORIENTATION/CONSCIOUSNESS: Yes awake, Yes oriented to person, Yes oriented to place and Yes oriented to time Resp: COMMON NORMALS: normal respiratory effort, No retractions and No use of accessory muscles AUSCULTATION: diminished lung sounds diffuse Cardio: COMMON NORMALS: regular rate, regular rhythm, S1 normal heart sound present and S2 normal heart sound present RATE: regular rate RHYTHM: regular rhythm HEART SOUNDS: S1 normal heart sound present and S2 normal heart sound present GI: COMMON NORMALS: Normal to inspection, nondistended, normoactive bowel sounds present, Soft to palpation and non-tender PALPATION: Yes Soft to palpation Extremity: COMMON NORMALS: no calf tenderness and no pedal edema Neuro: SENSORIUM/ORIENTATION: Yes oriented to person, Yes oriented to place and Yes oriented to time Urinary Catheter Management^: Angulo: Cath Placed During This Visit: yes Reason for Continuing Indwelling Catheter: Accurate Measurement of Urinary Output in Critically Ill Patients Urinary Catheter Date of Insertion: 08/29/20 Urinary Catheter Time of Insertion: 14:25 Data : 08/30/20 06:36 08/29/20 14:00 Micro: Microbiology 08/29/20 13:55 Blood Culture - Preliminary Blood SPECIMEN COLLECTED 08/29/20 14:00 Blood Culture - Preliminary Blood SPECIMEN COLLECTED A&P Assessment and plan (1) Acute on chronic respiratory failure with hypoxia and hypercapnia: Patient tells me that her home trilogy machine is broken We will have case management look into this Continue BiPAP therapy Solu-Medrol 40 every 8 hours Start Levaquin 750 every 24 hours Continue nebulizer treatments Follow blood cultures, sputum cultures Monitor respiratory status closely Full code Lovenox for DVT prophylaxis Status: Acute (2) Acute exacerbation of chronic obstructive airways disease: Status: Acute (3) Chronic steroid use: Status: Acute (4) HIV (human immunodeficiency virus infection): Resumed home meds. 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
[2020-08-30] MEDS: levofloxacin-dextrose 5 % 750 MG/150 ML PREMIX 100 MG IV (13:57)
[2020-08-30 15:30] LABS: Glucose Point of Care 237 mg/dL (70-110)
[2020-08-30] MEDS: NON-FORMULARY MEDICATION (Bictegrav-Emtricit-Tenofov Ala [Biktarvy] 50-200-25 mg tablet) 1 EACH PO (16:33)
--- NOTE | 2020-08-30 16:46 | ECG_ITS ---
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: : 1960 Requested By: Nba Wagner Order Number: [id number] Reading MD: ZIGGY KANG Measurements Intervals [place] Rate: 115 P: 88 MI: 127 QRS: 85 QRSD: 85 T: 80 QT: 318 QTc: 440 Interpretive Statements SINUS TACHYCARDIA POSSIBLE RIGHT ATRIAL ENLARGEMENT [0.25mV P WAVE] POSSIBLE LEFT ATRIAL ENLARGEMENT [-0.1mV P WAVE IN V1/V2] MODERATE ST DEPRESSION [0.05+ mV ST DEPRESSION] Compared to ECG 08/29/2020 20:41:33 ST (T wave) deviation now present Electronically Signed On 08-30-2020 20:18:35 CDT by ZIGGY KANG [email or web address] behavioral [facility] [email or web address] Emergency Servicescle[facility].[place]/store/OM/[id number]
[2020-08-30 17:20] LABS: Glucose Point of Care 263 mg/dL (70-110)
[2020-08-30] MEDS: enoxaparin 40 mg/0.4 mL Syringe SUBCUT (17:23)
[2020-08-30 18:55] LABS: Troponin(5th) Baseline 36 ng/L (0-10)
[2020-08-30 19:11] LABS: Alanine Aminotransferase 14 U/L (0-33); Albumin Level 3.2 g/dL (3.5-5.2); Alkaline Phosphatase 41 IU/L (35-105); Aspartate Amino Transferase 17 U/L (0-32); Blood Urea Nitrogen 20 mg/dL (6-20); Calcium 8.3 mg/dL (8.5-10.5); Chloride 84 mmol/L (98-107); Globulin 2.1 g/dL (1.3-4.6); Glomerular Filtration Rate 73.7 mL/min (90-130); Glucose 230 mg/dL (65-115); Magnesium 1.9 mg/dL (1.7-2.3); Osmolality Calculated 284 mOsm/kg (285-295); Sodium 132 mmol/L (136-145); Total Bilirubin 0.4 mg/dL (0.15-1.2); Total Protein 5.3 g/dL (6.6-8.7)
[2020-08-30 19:17] LABS: Carbon Dioxide 47 mmol/L (22-29)
[2020-08-30] MEDS: ondansetron 2 mg/ML SDV 2 mL 4 MG IVP (20:25)
[2020-08-30 21:00] LABS: Glucose Point of Care 99 mg/dL (70-110)
[2020-08-30 21:12] LABS: Troponin 5 2HR 102.2 ng/L (0-10); Troponin 5 2HR Delta 66.2 ABS# (0-10)
--- NOTE | 2020-08-30 22:46 | ECG_ITS ---
[facility] Test Date: 2020-09-07 Pat Name: Adore Broussard Department: Room: 277 Gender: Female Mechanist: : 1960 Requested By: Nba Wagner Order Number: [id number] Cherelle MD: Marianna Guadalupe M.D. Measurements Intervals [place] Rate: 98 P: 89 SC: 123 QRS: 82 QRSD: 90 T: 64 QT: 324 QTc: 414 Interpretive Statements SINUS RHYTHM POSSIBLE LEFT ATRIAL ENLARGEMENT [-0.1mV P WAVE IN V1/V2] Compared to ECG 08/31/2020 00:31:47 Sinus tachycardia no longer present Electronically Signed On 09-08-2020 23:03:19 CDT by Marianna Guadalupe M.D. [email or web address]/[id number]
[2020-08-31] VITALS (24 sets, daily range): BP systolic 115–175; BP diastolic 67–99; PULSE 101–130; RESP 18–38; TEMP 36.6; O2SAT 73–100
[2020-08-31] MEDS: ondansetron 2 mg/ML SDV 2 mL 4 MG IVP (00:35)
[2020-08-31 01:06] LABS: Troponin 5 6HR 196.2 ng/L (0-10); Troponin 5 6HR Delta 160.2 ng/L (0-12)
--- NOTE | 2020-08-31 03:10 | PC.NURSE ---
ASSUMING CARE 1900 Patient resting in bed on HFNC at 2 L. Patient is alert and oriented x 4. Patient tells nurse that she is not going to wear the BIPAP tonight.
[2020-08-31 05:13] LABS: ABG PCO2 90.6 mmHg (35-45); ABG PH Result 7.37 (7.35-7.45); Arterial Blood Gas Hematocrit 33.6 % (37-47); Base Excess ABG 22.7 mmol/L (-2.0-2.0); Blood Gas Sample Site Brachial, right; Blood Gas Sample Type Arterial; HCO3 ABG 52.3 mmol/L (22-26); Oxygen Device NC
[2020-08-31] MEDS: aspirin 81 mg EC Tablet PO (05:52)
--- NOTE | 2020-08-31 05:57 | PC.NURSE ---
BIPAP Patient has been dry heaving intermittently throughout the night prior to zofran administrations. Refused BIPAP even when not nauseated. Once zofran administered, patient not dry heaving for a few hours.
--- NOTE | 2020-08-31 06:29 | PC.NURSE ---
SHIFT SUMMARY Patient on HFNC at 3L. Alert and oriented x 4. Patient has received zofran x 2 tonight. Patient was asked if she would be willing to wear the BIPAP for a couple of hours after ABG came back, patient states that she wants to see if she could hold her soup she ate down and that she would wear it after breakfast if she could.
--- NOTE | 2020-08-31 06:35 | PC.NURSE ---
TROPONINS Critical troponins reported to Dr. Bundy. Lovenox increased to [address] Bundy discussed possible need for cherry grower consult. EKG done, no abnormalities, sinus tachycardia.
--- NOTE | 2020-08-31 07:00 | XRR_ITS ---
PROCEDURE INFORMATION: Exam: XR Chest Exam date and time: 08/31/2020 6:01 AM Age: 59 years old Clinical indication: Shortness of breath; Additional info: SOB TECHNIQUE: Imaging protocol: XR of the chest. Views: 1 view. COMPARISON: CR XR chest 1V portable [id number] 08/29/2020 2:32 PM FINDINGS: Lungs: The lungs are overinflated consistent with emphysema. No acute pulmonary infiltrates are seen. Pleural spaces: Unremarkable. No pleural effusion. No pneumothorax. Heart/Mediastinum: Unremarkable. No cardiomegaly. Bones/joints: Unremarkable. XR/XR chest 1V portable [id number] IMPRESSION: 1. Overinflated lungs consistent with pulmonary emphysema. 2. No acute cardiopulmonary abnormality.
[2020-08-31 07:57] LABS: Glucose Point of Care 326 mg/dL (70-110)
[2020-08-31] MEDS: NON-FORMULARY MEDICATION (Bictegrav-Emtricit-Tenofov Ala [Biktarvy] 50-200-25 mg tablet) 1 EACH PO (08:02)
[2020-08-31] MEDS: pantoprazole DR 40 mg Tablet PO (08:02)
[2020-08-31] MEDS: montelukast sodium 10 mg Tablet PO (08:02)
[2020-08-31] MEDS: enoxaparin 40 mg/0.4 mL Syringe SUBCUT ×2 (08:02→20:59)
[2020-08-31] MEDS: carvedilol 3.125 mg Tablet PO ×2 (08:06→17:11)
[2020-08-31] MEDS: atorvastatin 40 mg Tablet PO (08:06)
[2020-08-31] MEDS: insulin glargine 100 units/1 mL 8 UNIT SUBCUT (09:18)
[2020-08-31 09:45] LABS: Basophils % 0.2 %; Hematocrit 36.5 % (37.0-47.0); Hemoglobin 11.6 g/dL (11.5-15.3); Lymphocytes # 0.3 10^3/uL (0.8-4.8); Mean Corpuscular HGB Conc 31.8 g/dL (30.0-36.0); Mean Corpuscular Hemoglobin 28.4 pg (28.0-34.0); Mean Corpuscular Volume 89.5 fL (81-99); Mean Platelet Volume 10.1 fL (7.4-10.4); Monocytes # 0.1 10^3/uL (0.2-0.9); Neutrophils # 5.12 10^3/uL (1.8-7.7); Neutrophils % 92.3 %; Nucleated Red Blood Cells % 0 %; Platelet Count 218 10^3/cmm (130-400); Red Blood Count 4.08 10^6/uL (4.1-5.3); Red Cell Distribution Width 13.2 % (12.1-15.1); White Blood Count 5.6 10^3/uL (4.0-10.0)
[2020-08-31] MEDS: nitroglycerin 1 gm/inch oint Pkt 0.5 INCH TOPICAL ×3 (09:53→20:59)
[2020-08-31 10:22] LABS: NT Pro B Type Natriuretic Pept 2374 pg/mL (0-125); Procalcitonin 0.07 ng/mL (0-0.5)
[2020-08-31 10:34] LABS: Alanine Aminotransferase 16 U/L (0-33); Albumin Level 3.4 g/dL (3.5-5.2); Alkaline Phosphatase 43 IU/L (35-105); Aspartate Amino Transferase 24 U/L (0-32); Blood Urea Nitrogen 19 mg/dL (6-20); Calcium 8.7 mg/dL (8.5-10.5); Chloride 83 mmol/L (98-107); Globulin 2.3 g/dL (1.3-4.6); Glomerular Filtration Rate 73.7 mL/min (90-130); Glucose 210 mg/dL (65-115); Magnesium 2.1 mg/dL (1.7-2.3); Osmolality Calculated 280 mOsm/kg (285-295); Sodium 131 mmol/L (136-145); Total Bilirubin 0.3 mg/dL (0.15-1.2); Total Protein 5.7 g/dL (6.6-8.7)
[2020-08-31 11:00] LABS: Carbon Dioxide 45 mmol/L (22-29)
--- NOTE | 2020-08-31 11:19 | P.PN_ITS ---
Subjective Subjective: Interval history: Patient was examined this morning, yesterday afternoon, she had episodes of nausea, vomiting, shortness of breath and chest pain, she was found to have elevated troponins overnight, denies a cardiac history, denies calf pain, denies calf swelling, does have a family history of CAD, currently no chest pain, but just does not feel well, feels short of breath and nauseous Vitals/I&O/Wt Last Vital Signs Temp 97.8 F 08/30/20 20:00 Pulse 121 H 08/31/20 08:42 Resp 18 08/31/20 08:42 BP 156/87 08/31/20 08:00 Pulse Ox 96 08/31/20 08:42 08/30/20 08/31/20 08/31/20 22:59 06:59 14:59 Intake Total 510 / 870 240 / 1110 300 / 300 Output Total 900 / 900 550 / 1450 Balance -390 / -30 -310 / -340 300 / 300 Weight last 48 hrs Weight 40.959 kg Weight 39.916 kg Physical Exam Const: COMMON NORMALS: no acute distress GENERAL APPEARANCE: cooperative NUTRITIONAL APPEARANCE: thin and underweight ORIENTATION/CONSCIOUSNESS: Yes awake, Yes oriented to person, Yes oriented to place and Yes oriented to time Chest: OTHER: barrel chested Resp: COMMON NORMALS: No retractions EFFORT & INSPECTION: Yes able to speak in complete sentences, Yes tachypneic and Yes pursed lip breathing AUSCULTAT ION: wheezes Cardio: COMMON NORMALS: regular rhythm, S1 normal heart sound present and S2 normal heart sound present RATE: tachycardic RHYTHM: regular rhythm HEART SOUNDS: S1 normal heart sound present and S2 normal heart sound present GI: COMMON NORMALS: Normal to inspection, nondistended, normoactive bowel sounds present, Soft to palpation and non-tender PALPATION: Yes Soft to palpation Extremity: COMMON NORMALS: no pedal edema Neuro: SENSORIUM/ORIENTATION: Yes oriented to person, Yes oriented to place and Yes oriented to time Urinary Catheter Management^: Nagulo: Cath Placed During This Visit: yes Reason for Continuing Indwelling Catheter: Accurate Measurement of Urinary Outp ut in Critically Ill Patients Urinary Catheter Date of Insertion: 08/29/20 Urinary Catheter Time of Insertion: 14:25 Data : 08/31/20 09:29 08/31/20 09:29 Micro: Microbiology 08/29/20 13:55 Blood Culture - Preliminary Blood NEGATIVE TO DATE 08/29/20 14:00 Blood Culture - Preliminary Blood NEGATIVE TO DATE A&P Assessment and plan (1) Acute on chronic respiratory failure with hypoxia and hypercapnia: Patient tells me that her home trilogy machine is broken We will have case management look into this Was noncompliant to BiPAP therapy overnight, advised of importance of BiPAP therapy this morning, agreeable to use BiPAP, PCO2 90, pH 7.37, bicarb 52.3 White blood cell count 5.6, pro-Rickey 0.07, afebrile overnight Solu-Medrol 40 every 8 hours Start Levaquin 750 every 24 hours Continue nebulizer treatments Monitor respiratory status closely Given chest pain and worsening shortness of breath, will order CT angiogram of the chest to evaluate for pulmonary by, bilateral extremity ultrasound Follow blood cultures, sputum cultures Monitor respiratory status closely Full code Lovenox for DVT prophylaxis Status: Acute (2) Acute exacerbation of chronic obstructive airways disease: Status: Acute (3) Chronic steroid use: Status: Acute (4) HIV (human immunodeficiency virus infection): Resumed home meds. Status: Chronic Qualifiers: HIV symptom status: asymptomatic Qualified Code(s): Z21 - Asymptomatic human immunodeficiency virus [HIV] infection status (5) Sinus tachycardia: -Chronic sinus tachycardia, likely related to acute respiratory failure Status: Acute (6) Chest pain: Status: Acute (7) NSTEMI (non-ST elevated myocardial infarction): -Complaints of left-sided chest pain -Baseline troponin 36, 6-hour troponin I 60, with a delta of 196, BNP 2374 -EKG does show ST depressions in inferior leads, QTC 440 ms -Echocardiogram in April showed an EF of 60%, grade 2 diastolic dysfunction, moderately elevated filling pressures, normal pulmonary artery pressure Plan: -Aspirin 81 mg, atorvastatin 40 mg, therapeutic Lovenox, Coreg 3.125 twice daily -Nitro paste for chest pain -BNP is elevated, will give 1 dose of Lasix 40 mg, wheezing on exam, but no bilateral lower extreme edema -If chest pain persist will consider nitro drip -Hold off on Plavix until patient seen by cardiology service -Repeat echocardiogram pending -Cardiology on consult Status: Acute Attestations Medical Necessity Statement*: Patient requires hospitalization, for acute respiratory failure, hypercarbia, NSTEMI, chest pain Coding Level of Care Code Acute Florist'S Decorator for Chg Fwd Diagnoses Acute on chronic respiratory failure with hypoxia and hypercapnia J96.21; J96.22 Acute exacerbation of chronic obstructive airways disease J44.1 Chronic steroid use HIV (human immunodeficiency virus infection) Z21 HIV symptom status: asymptomatic Sinus tachycardia R00.0 Chest pain R07.9 NSTEMI (non-ST elevated myocardial infarction) I21.4
--- NOTE | 2020-08-31 11:24 | USR_ITS ---
PROCEDURE INFORMATION: Exam: US Duplex Lower Extremity Veins, Bilateral Exam date and time: 08/31/2020 2:42 PM Age: 59 years old Clinical indication: Shortness of breath. DVT? TECHNIQUE: Imaging protocol: Real-time duplex ultrasound of the extremities with 2-D jacobo scale, color Doppler flow and spectral waveform analysis with image documentation. Complete exam focused on the bilateral lower extremity veins. COMPARISON: US Extremity [facility]asc [facility] [id number] 04/07/2015 3:14 PM FINDINGS: The common femoral, femoral, popliteal and posterior tibial veins are patent. There is appropriate compression and augmentation. Doppler interogation reveals venous blood flow. US/[place] [id number] IMPRESSION: No evidence of deep venous thrombosis.
--- NOTE | 2020-08-31 11:58 | PC.NURSE ---
to ct per wc with staff for angiogram pt refused dye at this time doctor notified
[2020-08-31] MEDS: FUROsemide 10 mg/mL SDV 4mL 40 MG IVP (12:14)
[2020-08-31] MEDS: levofloxacin-dextrose 5 % 750 MG/150 ML PREMIX 150 MG IV (12:15)
[2020-08-31] MEDS: LORazepam 2 mg/mL INJ 1 mL 0.5 MG IVP (14:27)
[2020-08-31 17:20] LABS: Glucose Point of Care 168 mg/dL (70-110)
--- NOTE | 2020-08-31 21:08 | PM.CONSULT ---
Providers/Reason For Consult Consulting Physician/Specialty*: Mingo Donahue MD/Cardiology Reason for Consult*: Troponin elevation/ respiratory failure Requesting Physician: Dr Wagner Attending Physician: Nba Wagner MD Primary Care Provider: Ta Salas MD History of Present Illness History of Present Illness Adore Broussard is a 59 year old female with past medical history of HIV on Biktarvy, chronic hypoxemic,hypercapnic respiratory failure due to obstructive lung disease on 2-3L of O2 via NC and trilogy and non compliance who presented to ER with respiratory distress. She had similar admissions in the past. Patitent was put on bipap and now is feeling better.She has sinus tachycardia. Cardiology was consulted as her troponins trended up signficantly. 36>1062>196. EKG shows sinus tachycardia without significant ischemic changes According to patient she has on and off chest discomfort. Substernal. Lasts only a few seconds most of the times. A few episodes which lasted more than a minute. Sharp in quality. Review of Systems General: Reports: 10 or more systems reviewed and unremarkable except in HPI and below Narrative: CONSTITUTIONAL: No fever chills weight loss or gain or night sweats. [] HEENT: Normocephalic, atraumatic.[] RESPIRATORY: No cough, sputum, hemoptysis or wheezing.[] CARDIOVASCULAR: Has shortness of breath, no chest pain, PND, orthopnea, lower extremity edema, presyncope or syncope. [] GI: no nausea vomiting diarrhea. [] PROBATION COUNSELOR: No numbness, tingling, weakness or loss of function in any part of the body. [] MUSCULOSKELETAL: No knee or joint pain or rashes. [] Meds/Allergies Home Medications and Allergies Home Medications Medication Instructions Recorded Confirmed Last Taken Type albuterol sulfate 90 mcg/actuation 2 puff INHALATION Q4H PRN 10/03/19 08/29/20 Unknown History aerosol inhaler montelukast 10 mg tablet 10 mg PO DAILY 10/03/19 08/29/20 08/28/20 History Biktarvy 1 tab PO DAILY 04/23/20 08/29/20 08/28/20 History Spiriva with HandiHaler 1 cap INHALATION DAILY 05/05/20 08/29/20 Unknown History budesonide-formoterol [Symbicort] 2 puff INHALATION BID 05/05/20 08/29/20 Unknown History ipratropium-albuterol 3 ml INHALATION QID PRN #180 ml 05/16/20 08/29/20 Unknown Rx glucometer #1 ea 06/16/20 08/29/20 Unknown Rx insulin aspart U-100 [Novolog See Rx Instructions .ROUTE 06/16/20 08/29/20 08/28/20 Rx Flexpen U-100 Insulin] .COMPLEX #15 ml aspirin 81 mg PO QAM 06/27/20 08/29/20 08/28/20 History sulfamethoxazole-trimethoprim See Rx Instructions .ROUTE .COMPLEX 08/06/20 08/29/20 08/27/20 History prednisone 10 mg PO DAILY #60 tab 08/08/20 08/29/20 08/28/20 Rx Lasix 40 mg PO DAILY 08/29/20 08/29/20 08/28/20 History prednisone 50 mg PO DAILY 08/29/20 08/29/20 Unknown History Allergies Allergy/AdvReac Type Severity Reaction Status Date / Time Penicillins Allergy ALGY-Difficulty Verified 08/29/20 16:08 Breathing phenobarbital Allergy ALGY-Hives Verified 08/29/20 16:08 Tetanus Vaccines and Toxoid Allergy ALGY-Hives Verified 08/29/20 16:08 Current Medications Current Medications Generic Name Dose Route Start Last Admin Trade Name Freq PRN Reason Stop Dose Admin Acetaminophen 650 mg 08/29/20 17:00 08/29/20 20:58 Acetaminophen 325 Mg Tablet PO 650 mg Q6H PRN Administration Mild/Mod Pain Or Temp >/= 101 Albuterol/Ipratropium 3 ml 08/29/20 17:00 08/29/20 20:34 Ipratropium-Albuterol 3 Ml Neb INHALATION 3 ml Q6H PRN Administration SHORTNESS OF BREATH Aspirin 81 mg 08/30/20 06:00 08/31/20 05:52 Aspirin 81 Mg Ec Tablet PO 81 mg QAM RADHA Administration Atorvastatin Calcium 40 mg 08/31/20 08:00 08/31/20 08:06 Atorvastatin 40 Mg Tablet PO 40 mg Q24H RADHA Administration Carvedilol 3.125 mg 08/31/20 09:00 08/31/20 17:11 Carvedilol 3.125 Mg Tablet PO 3.125 mg BID RADHA Administration Enoxaparin Sodium 40 mg 08/31/20 09:00 08/31/20 20:59 Enoxaparin 40 Mg/0.4 Ml Syringe SUBCUT 40 mg Q12H RADHA Administration Levofloxacin/Dextrose 750 mg in 150 mls @ 100 mls/hr 08/30/20 13:30 08/31/20 13:37 Levaquin-D5w IV Infused Q24H [facility] Infusion Protocol Insulin Aspart 0 unit 08/29/20 21:00 08/31/20 17:11 Insulin Aspart 100 Unit/1 Ml SUBCUT 6 unit WM&BEDTIME RADHA Administration Protocol Insulin Glargine 8 unit 08/31/20 09:00 08/31/20 09:18 Insulin Glargine 100 Units/1 Ml SUBCUT 8 unit Q24H RADHA Administration Lorazepam 0.5 mg 08/31/20 11:20 08/31/20 14:27 Lorazepam 2 Mg/Ml Inj 1 Ml IVP 0.5 mg Q6H PRN Administration ANXIETY Methylprednisolone Sodium Succinate 40 mg 08/29/20 22:00 08/31/20 20:59 Methylprednisolone Sod Succ 40 Mg/Ml Inj IVP 40 mg Q8H RADHA Administration Montelukast Sodium 10 mg 08/30/20 09:00 08/31/20 08:02 Montelukast Sodium 10 Mg Tablet PO 10 mg DAILY RADHA Administration Nitroglycerin 0.5 inch 08/31/20 09:30 08/31/20 20:59 Nitroglycerin 1 Gm/Inch Oint Pkt TOPICAL 0.5 inch Q6H RADHA Administration Non-Formulary 0 each 08/30/20 09:00 08/31/20 19:40 Medication - INHALATION Not Given Symbicort 160/4.5 BID.RESPIRATORY RADHA Non-Formulary Medication 1 tab 08/30/20 17:00 08/31/20 08:02 Reqpvpeou-Muhiuqqt-Duzpksv Ala [Biktarvy] PO 1 tab DAILY RADHA Administration Ondansetron HCl 4 mg 08/30/20 16:47 08/31/20 00:35 Ondansetron 2 Mg/Ml Sdv 2 Ml IVP 4 mg Q4H PRN Administration NAUSEA AND VOMITING Pantoprazole Sodium 40 mg 08/31/20 09:00 08/31/20 08:[address] 40 Mg Tablet PO 40 mg DAILY RADHA Administration PFSH Acute PFSH: Medical History CHF (congestive heart failure) Ejection fraction 57% on echocardiogram done 05/15/2020 Chronic respiratory failure with hypoxia and hypercapnia COPD (chronic obstructive pulmonary disease) Edema of left lower extremity GERD (gastroesophageal reflux disease) HIV (human immunodeficiency virus infection) Nicotine addiction Protein calorie malnutrition Surgical History H/O laparoscopy History of History of hysterectomy Family History Mother COPD (chronic obstructive pulmonary disease) Father CAD (coronary artery disease) Social History Smoking and tobacco status: current every day smoker cigarettes Years cigarettes smoked: 50 [ Other cigarette details: Hx of 1 PPD x 15 Years ] Second hand smoke exposure: Yes Alcohol intake: current Alcohol intake frequency: holidays/special occasions only Lives independently: Yes Household members: none Marital status: / Current occupational status: disabled History of recent travel: No Current gender identity: Female Female Reproductive History: Date of last menstrual period: 06/27/20 Vitals/I&O/Wt Last Vital Signs Temp 98 F 08/31/20 12:00 Pulse 104 H 08/31/20 20:24 Resp 18 08/31/20 20:24 BP 159/76 08/31/20 15:00 Pulse Ox 95 08/31/20 20:24 08/31/20 08/31/20 08/31/20 06:59 14:59 22:59 Intake Total 240 / 1110 450 / 450 350 / 800 Output Total 550 / 1450 1000 / 1000 1800 / 2800 Balance -310 / -340 -550 / -550 -1450 / -2000 Weight last 48 hrs Weight 90 lb 4.8 oz Physical Exam Narrative: EXAM NARRATIVE: GENERAL: Patient is alert, awake and oriented x3. [] NECK: No jugular vein distension. [] HEENT: No cyanosis. No icterus. No pallor. [] HEART: Regular S1 and S2. No murmur, rub or gallop. [] LUNGS: Bilateral wheezes ABDOMEN: Soft, nontender and nondistended. Positive bowel sounds. No guarding, rebound or tenderness. [] CENTRAL NERVOUS SYSTEM: Grossly nonfocal. [] EXTREMITIES: Lower extremities with 1+ edema bilaterally. Pulses palpable in the lower extremities, both dorsalis pedis and posterior tibial. [] Urinary Catheter Management^: Angulo: Cath Placed During This Visit: yes Reason for Continuing Indwelling Catheter: Accurate Measurement of Urinary Output in Critically Ill Patients Urinary Catheter Date of Insertion: 08/29/20 Urinary Catheter Time of Insertion: 14:25 A&P Assessment and plan (1) Troponin level elevated: Status: Acute (2) Chest pain: Status: Acute (3) Sinus tachycardia: Status: Acute (4) COPD (chronic obstructive pulmonary disease): Status: Chronic (5) Acute on chronic respiratory failure with hypoxia and hypercapnia: Status: Acute (6) HIV (human immunodeficiency virus infection): Status: Chronic Qualifiers: HIV symptom status: asymptomatic Qualified Code(s): Z21 - Asymptomatic human immunodeficiency virus [HIV] infection status Patient's chest pain symptoms are atypical. Troponins did trend up significantly. This could be secondary to demand ischemia versus true NSTEMI. Patient has a history of noncompliance. She does not want to get a stress test. Even today she is not sure if she will be able to stay in the hospital. Her compliance with dual antiplatelet therapy if she needs a stent will be questionable and can put her at risk of stent thrombosis. Continue aspirin. We will recommend obtaining echocardiogram. If echo shows significant wall motion abnormalities or patient continues having chest discomfort with EKG changes, can proceed with coronary angiogram.(Currently her chest pain symptoms are mostly atypical. )Otherwise she does not have ischemic changes on EKG and she can be managed medically. We will follow on echocardiogram and will discuss the plan with the patient later. Thank you for involving us with care of this patient. We will continue to follow. Please call with questions. Coding Level of Care Code Acute Correctional Case Manager for [place] Dickerson Diagnoses Troponin level elevated R77.8 Chest pain R07.9 Sinus tachycardia R00.0 COPD (chronic obstructive pulmonary disease) J44.9 Acute on chronic respiratory failure with hypoxia and hypercapnia J96.21; J96.22 HIV (human immunodeficiency virus infection) Z21 HIV symptom status: asymptomatic
[2020-08-31 21:56] LABS: Glucose Point of Care 170 mg/dL (70-110)
[2020-09-01] VITALS (26 sets, daily range): BP systolic 109–150; BP diastolic 69–92; PULSE 99–135; RESP 16–31; TEMP 36.8–37.1; O2SAT 94–100
[2020-09-01 03:46] LABS: Basophils % 0.2 %; Hematocrit 36.1 % (37.0-47.0); Hemoglobin 11.3 g/dL (11.5-15.3); Lymphocytes # 0.5 10^3/uL (0.8-4.8); Mean Corpuscular HGB Conc 31.3 g/dL (30.0-36.0); Mean Corpuscular Hemoglobin 28.3 pg (28.0-34.0); Mean Corpuscular Volume 90.5 fL (81-99); Mean Platelet Volume 10.2 fL (7.4-10.4); Monocytes # 0.3 10^3/uL (0.2-0.9); Monocytes % 4.9 %; Neutrophils # 4.46 10^3/uL (1.8-7.7); Neutrophils % 84.3 %; Nucleated Red Blood Cells % 0 %; Platelet Count 215 10^3/cmm (130-400); Red Blood Count 3.99 10^6/uL (4.1-5.3); Red Cell Distribution Width 13.2 % (12.1-15.1); White Blood Count 5.3 10^3/uL (4.0-10.0)
[2020-09-01] MEDS: nitroglycerin 1 gm/inch oint Pkt 0.5 INCH TOPICAL ×2 (04:07→08:32)
[2020-09-01 04:19] LABS: NT Pro B Type Natriuretic Pept 1662 pg/mL (0-125); Procalcitonin 0.07 ng/mL (0-0.5)
[2020-09-01 04:29] LABS: ABG PH Result 7.39 (7.35-7.45); Arterial Blood Gas Hematocrit 35.2 % (37-47); Base Excess ABG 25.5 mmol/L (-2.0-2.0); Blood Gas Sample Site Brachial, right; Blood Gas Sample Type Arterial; HCO3 ABG 55.5 mmol/L (22-26); Oxygen Device NC; PO2 ABG 77.5 mmHg (80.0-100.0)
[2020-09-01 04:33] LABS: Alanine Aminotransferase 15 U/L (0-33); Alkaline Phosphatase 40 IU/L (35-105); Aspartate Amino Transferase 20 U/L (0-32); Blood Urea Nitrogen 16 mg/dL (6-20); Calcium 8.2 mg/dL (8.5-10.5); Chloride 86 mmol/L (98-107); Glomerular Filtration Rate 73.7 mL/min (90-130); Glucose 129 mg/dL (65-115); Magnesium 1.9 mg/dL (1.7-2.3); Osmolality Calculated 289 mOsm/kg (285-295); Sodium 138 mmol/L (136-145); Total Bilirubin 0.4 mg/dL (0.15-1.2)
[2020-09-01 04:35] LABS: Carbon Dioxide 47 mmol/L (22-29)
[2020-09-01 04:36] LABS: ABG PCO2 92.1 mmHg (35-45)
[2020-09-01] MEDS: aspirin 81 mg EC Tablet PO (05:46)
--- NOTE | 2020-09-01 06:00 | USCV_ITS ---
Adore Broussard Age: 59 Gender: F : 1960 Exam Date: 09/01/2020 05:49 Ordering Phys: Nba Wagner MD Technologist: Lizett Horton [place] [facility] [place]: TACH AND CHEST PAIN BP: 138 / 76 HR: 110 Rhythm: Sinus Technical Quality: Adequate MEASUREMENTS (Male / Female) Normal Values 2D ECHO LV Diastolic Diameter PLAX 3.7 cm 4.2 - 5.9 / 3.9 - 5.3 cm LV Systolic Diameter PLAX 1.9 cm IVS Diastolic Thickness 1.1 cm 0.6 - 1.0 / 0.6 - 0.9 cm IVS Systolic Thickness 1.5 cm LVPW Diastolic Thickness 1.2 cm 0.6 - 1.0 / 0.6 - 0.9 cm LVPW Systolic Thickness 1.3 cm LVOT Diameter 2.0 cm LV Ejection Fraction 2D Teich 80.6 % LV Ejection Fraction MOD 2C 60.1 % LV Ejection Fraction 2C AL 59.9 % LA Diameter 3.1 cm LA Width 2.0 cm LA Height 3.2 cm RA Width 1.7 cm RA Height 2.7 cm Aorta at Sinotubular Diameter 2.7 cm M-MODE LV Diastolic Diameter MM 4.4 cm 4.2 - 5.9 / 3.9 - 5.3 cm LV Systolic Diameter MM 2.9 cm LV Ejection Fraction MM Teich 63.3 % IVS Diastolic Thickness MM 0.8 cm 0.6 - 1.0 / 0.6 - 0.9 cm IVS Systolic Thickness MM 1.2 cm LVPW Diastolic Thickness MM 1.2 cm 0.6 - 1.0 / 0.6 - 0.9 cm LVPW Systolic Thickness MM 1.4 cm Aortic Annulus Diameter 2.5 cm LA Ao Ratio MM 1.6 MV E Point Septal Separation 0.3 cm DOPPLER AV Peak Velocity 119.0 cm/s LVOT Peak Velocity 73.0 cm/s AV Area Cont Eq vti 2.6 cm squared AV Area Cont Eq pk 1.9 cm squared MV Area PHT 5.0 cm squared MV E' Velocity 48.0 cm/s Mitral E to MV E' Ratio 7.4 Mitral E to LV E' Lateral Ratio 8.3 Mitral E to LV E' Septal Ratio 6.6 TR Peak Velocity 166.6 cm/s TR Peak Gradient 11.1 mmHg TR Mean Velocity 121.1 cm/s TR Mean Gradient 6.9 mmHg TR Velocity Time Integral 34.2 cm TV Peak E Velocity 64.0 cm/s Right Atrial Pressure 3.0 mmHg Pulmonary Artery Systolic Pressu 14.1 mmHg PV Peak Velocity 46.0 cm/s RV Acceleration Time 0.1 s RV Ejection Time 0.2 s RV AcT/ET 0.5 FINDINGS Left Ventricle Normal left ventricular size. LV systolic function is normal with EF of 55-60%. No regional wall motion abnormalities. Diastolic function is indeterminate Right Ventricle The right ventricle is normal in size and function. Right Atrium The right atrium is normal in size. Left Atrium The left atrium is normal in size. Mitral Valve Structurally normal mitral valve without significant stenosis or prolapse. There is no mitral regurgitation. Aortic Valve Grossly normal without significant sclerosis or stenosis. There is no aortic regurgitation. Tricuspid Valve Structurally normal tricuspid valve without significant stenosis or regurgitation. Insufficient TR jet to calculate RVSP Pulmonic Valve Not well visualized Pericardium Normal pericardium without effusion. Aorta Normal ascending aorta dimension. CONCLUSIONS LV systolic function is normal with EF of 55-60% No significant valvular heart disease is noted Normal RV size and function Compared to prior echocardiogram from 04/24/2020, no significant changes are noted Mingo Donahue MD (Electronically Signed) Final Date: 01 September 2020 15:11 S
[2020-09-01 07:51] LABS: Glucose Point of Care 254 mg/dL (70-110)
[2020-09-01] MEDS: ondansetron 2 mg/ML SDV 2 mL 4 MG IVP (07:57)
[2020-09-01] MEDS: montelukast sodium 10 mg Tablet PO (08:12)
[2020-09-01] MEDS: enoxaparin 40 mg/0.4 mL Syringe SUBCUT ×2 (08:12→21:15)
[2020-09-01] MEDS: sulfamethoxazole-trimeth DS 160-800 mg Tablet 1 TAB PO (08:13)
[2020-09-01] MEDS: carvedilol 3.125 mg Tablet PO ×2 (08:13→17:17)
[2020-09-01] MEDS: pantoprazole DR 40 mg Tablet PO (08:13)
[2020-09-01] MEDS: atorvastatin 40 mg Tablet PO (08:13)
[2020-09-01] MEDS: insulin glargine 100 units/1 mL 8 UNIT SUBCUT (08:17)
[2020-09-01] MEDS: NON-FORMULARY MEDICATION (Bictegrav-Emtricit-Tenofov Ala [Biktarvy] 50-200-25 mg tablet) 1 EACH PO (08:20)
[2020-09-01 11:30] LABS: Glucose Point of Care 247 mg/dL (70-110)
[2020-09-01] MEDS: LORazepam 2 mg/mL INJ 1 mL 0.5 MG IVP (12:14)
--- NOTE | 2020-09-01 12:38 | P.PN_ITS ---
Subjective Subjective: Interval history: Patient was examined this morning, she says that she feels better, denies any chest pain, continue to have shortness of breath, continue to use accessory muscles of respiration, continues to deny regular BiPAP use. Vitals/I&O/Wt Last Vital Signs Temp 98.7 F 09/01/20 12:00 Pulse 117 H 09/01/20 12:00 Resp 28 H 09/01/20 12:00 BP 149/92 09/01/20 12:00 Pulse Ox 97 09/01/20 12:00 08/31/20 09/01/20 09/01/20 22:59 06:59 14:59 Intake Total 350 / 800 480 / 480 Output Total 1800 / 2800 Balance -1450 / -2000 480 / 480 Weight last 48 hrs Weight 42.184 kg Weight 40.959 kg Physical Exam Const: COMMON NORMALS: patient oriented x3 HENMT: COMMON NORMALS: normocephalic and atraumatic HEAD & SCALP: normocephalic and atraumatic Resp: OTHER: Bilateral wheezing present in both lung field, bilateral diminished air entry. Cardio: COMMON NORMALS: regular rate, regular rhythm, S1 normal heart sound present, S2 normal heart sound present, No gallops present (Cardio), No murmurs present (Cardio), No rub (Cardio) and Peripheral pulses 2+ throughout RATE: regular rate RHYTHM: regular rhythm HEART SOUNDS: S1 normal heart sound present and S2 normal heart sound present PERIPHERAL PULSES: Peripheral pulses 2+ throughout GI: COMMON NORMALS: Normal to inspection, nondistended, normoactive bowel sounds present, Soft to palpation, non-tender, No hepatosplenomegaly present and no masses AUSCULTATION: Yes normoactive bowel sounds PALPATION: Yes Soft to palpation and Yes No hepatosplenomegaly present RECTAL EXAM: deferred Extremity: COMMON NORMALS: no clubbing, cyanosis or edema and no pedal edema Neuro: COMMON NORMALS: patient oriented x3 Urinary Catheter Management^: Angulo: Cath Placed During This Visit: yes Reason for Continuing Indwelling Catheter: Accurate Measurement of Urinary Output in Critically Ill Patients Urinary Catheter Date of Insertion: 08/29/20 Urinary Catheter Time of Insertion: 14:25 Data : 09/01/20 03:11 09/01/20 03:11 A&P Assessment and plan (1) Acute on chronic respiratory failure with hypoxia and hypercapnia: Patient tells me that her home trilogy machine is broken We will have case management look into this Was noncompliant to BiPAP therapy overnight, advised of importance of BiPAP therapy this morning, agreeable to use BiPAP, PCO2 90, pH 7.37, bicarb 52.3 White blood cell count 5.6, pro-Rickey 0.07, afebrile overnight Solu-Medrol 40 every 8 hours Start Levaquin 750 every 24 hours Continue nebulizer treatments Monitor respiratory status closely Given chest pain and worsening shortness of breath, will order CT angiogram of the chest to evaluate for pulmonary by, bilateral extremity ultrasound Follow blood cultures, sputum cultures Monitor respiratory status closely Full code Lovenox for DVT prophylaxis Status: Acute (2) Acute exacerbation of chronic obstructive airways disease: Status: Acute (3) Chronic steroid use: Status: Acute (4) HIV (human immunodeficiency virus infection): Resumed home meds. Status: Chronic Qualifiers: HIV symptom status: asymptomatic Qualified Code(s): Z21 - Asymptomatic human immunodeficiency virus [HIV] infection status (5) Sinus tachycardia: -Chronic sinus tachycardia, likely related to acute respiratory failure Status: Acute (6) Chest pain: Status: Acute (7) NSTEMI (non-ST elevated myocardial infarction): -Complaints of left-sided chest pain -Baseline troponin 36, 6-hour troponin I 60, with a delta of 196, BNP 2374 -EKG does show ST depressions in inferior leads, QTC 440 ms -Echocardiogram in April showed an EF of 60%, grade 2 diastolic dysfunction, moderately elevated filling pressures, normal pulmonary artery pressure. -Repeat echo done on 09/01: LV systolic function is normal with EF of 55-60%. No significant valvular heart disease is noted. Normal RV size and function. Compared to prior echocardiogram from 04/24/2020, no significant changes are noted. -Venous duplex bilateral lower extremity: No evidence of deep venous thrombosis. Plan: -Aspirin 81 mg, atorvastatin 40 mg, therapeutic Lovenox, Coreg 3.125 twice daily -Nitro paste for chest pain -BNP is elevated, will give 1 dose of Lasix 40 mg, wheezing on exam, but no bilateral lower extreme edema -If chest pain persist will consider nitro drip -Hold off on Plavix until patient seen by cardiology service -Cardiology on consult Status: Acute Attestations Medical Necessity Statement*: Patient needs to be in hospital for management of respiratory failure Coding Level of Care Code Acute Real Estate Administrator for Chg Fwd Diagnoses Acute on chronic respiratory failure with hypoxia and hypercapnia J96.21; J96.22 Acute exacerbation of chronic obstructive airways disease J44.1 Chronic steroid use HIV (human immunodeficiency virus infection) Z21 HIV symptom status: asymptomatic Sinus tachycardia R00.0 Chest pain R07.9 NSTEMI (non-ST elevated myocardial infarction) I21.4
[2020-09-01] MEDS: levofloxacin-dextrose 5 % 750 MG/150 ML PREMIX 150 MG IV (13:24)
[2020-09-01 17:09] LABS: Glucose Point of Care 152 mg/dL (70-110)
--- NOTE | 2020-09-01 17:32 | PM.PN ---
Subjective Subjective: Interval history: Patient is overall doing better. Says that breathing is better. No episodes of chest pain. She wants to proceed with medical therapy at this time Vitals/I&O/Wt Last Vital Signs Temp 98.7 F 09/01/20 12:00 Pulse 135 H 09/01/20 16:00 Resp 27 H 09/01/20 16:00 BP 109/69 09/01/20 16:00 Pulse Ox 95 09/01/20 16:00 09/01/20 09/01/20 09/01/20 06:59 14:59 22:59 Intake Total 480 / 480 510 / 990 Balance 480 / 480 510 / 990 Weight last 48 hrs Weight 93 lb Weight 90 lb 4.8 oz Physical Exam Narrative: EXAM NARRATIVE: GENERAL: Patient is alert, awake and oriented x3. [] NECK: No jugular vein distension. [] HEENT: No cyanosis. No icterus. No pallor. [] HEART: Regular S1 and S2. No murmur, rub or gallop. [] LUNGS: Bilateral wheezes ABDOMEN: Soft, nontender and nondistended. Positive bowel sounds. No guarding, rebound or tenderness. [] CENTRAL NERVOUS SYSTEM: Grossly nonfocal. [] EXTREMITIES: Lower extremities with 1+ edema bilaterally. Pulses palpable in the lower extremities, both dorsalis pedis and posterior tibial. [] Urinary Catheter Management^: Angulo: Cath Placed During This Visit: yes Reason for Continuing Indwelling Catheter: Accurate Measurement of Urinary Output in Critically Ill Patients Urinary Catheter Date of Insertion: 08/29/20 Urinary Catheter Time of Insertion: 14:25 Data : 09/01/20 03:11 09/01/20 03:11 A&P Assessment and plan (1) Troponin level elevated: Status: Acute (2) Chest pain: Status: Acute (3) Sinus tachycardia: Status: Acute (4) COPD (chronic obstructive pulmonary disease): Status: Chronic (5) Acute on chronic respiratory failure with hypoxia and hypercapnia: Status: Acute (6) HIV (human immunodeficiency virus infection): Status: Chronic Qualifiers: HIV symptom status: asymptomatic Qualified Code(s): Z21 - Asymptomatic human immunodeficiency virus [HIV] infection status Patient's chest pain symptoms are atypical. Troponins did trend up significantly. This could be secondary to demand ischemia versus true NSTEMI. Patient has a history of noncompliance. ECHO shows normal LV systolic function. No chest pain. She has completed 48 hours of anticoagulation. She wants to proceed with medical therapy at this time which is reasonable as not having chest pain symptoms and has normal LV systolic function. Continue aspirin. We can follow her as outpatient Thank you for involving us with care of this patient. Please call with questions. Attestations Medical Necessity Statement*: Care expected to cross 2 midnights. Coding Level of Care Code Acute Assistant Professor Nurse Education for [employer] Diagnoses Troponin level elevated R77.8 Chest pain R07.9 Sinus tachycardia R00.0 COPD (chronic obstructive pulmonary disease) J44.9 Acute on chronic respiratory failure with hypoxia and hypercapnia J96.21; J96.22 HIV (human immunodeficiency virus infection) Z21 HIV symptom status: asymptomatic
[2020-09-01 21:09] LABS: Glucose Point of Care 207 mg/dL (70-110)
[2020-09-02] VITALS (21 sets, daily range): BP systolic 122–154; BP diastolic 68–92; PULSE 84–133; RESP 16–29; TEMP 36.7–36.9; O2SAT 92–100
[2020-09-02] MEDS: aspirin 81 mg EC Tablet PO (05:22)
[2020-09-02 07:36] LABS: Glucose Point of Care 386 mg/dL (70-110)
[2020-09-02] MEDS: atorvastatin 40 mg Tablet PO (07:40)
[2020-09-02] MEDS: ipratropium-albuterol 3 mL Neb INHALATION ×2 (08:05→14:31)
[2020-09-02] MEDS: enoxaparin 40 mg/0.4 mL Syringe SUBCUT (10:51)
[2020-09-02] MEDS: carvedilol 3.125 mg Tablet PO ×2 (10:51→17:14)
[2020-09-02] MEDS: NON-FORMULARY MEDICATION (Bictegrav-Emtricit-Tenofov Ala [Biktarvy] 50-200-25 mg tablet) 1 EACH PO (10:51)
[2020-09-02] MEDS: montelukast sodium 10 mg Tablet PO (10:52)
[2020-09-02] MEDS: isosorbide mononitrate ER 30 mg Tablet PO (10:52)
[2020-09-02] MEDS: pantoprazole DR 40 mg Tablet PO (10:53)
[2020-09-02] MEDS: insulin glargine 100 units/1 mL 8 UNIT SUBCUT (11:05)
--- NOTE | 2020-09-02 11:33 | PM.PN ---
Subjective Subjective: Interval history: Patient was seen and examined this morning overall she is doing better says that breathing is better. Denies chest pain. Continues to be in sinus tachycardia. Vitals/I&O/Wt Last Vital Signs Temp 98.2 F 09/02/20 08:00 Pulse 133 H 09/02/20 08:13 Resp 24 H 09/02/20 08:08 BP 140/75 09/02/20 08:00 Pulse Ox 98 09/02/20 08:08 09/01/20 09/02/20 09/02/20 22:59 06:59 14:59 Intake Total 510 / 990 120 / 120 Output Total 350 / 350 400 / 750 Balance 160 / 640 -400 / 240 120 / 120 Weight last 48 hrs Weight 43.091 kg Weight 42.184 kg Physical Exam Const: COMMON NORMALS: patient oriented x3 HENMT: COMMON NORMALS: normocephalic and atraumatic HEAD & SCALP: normocephalic and atraumatic Resp: OTHER: Bilateral wheezing present in both lung field, bilateral diminished air entry. Cardio: COMMON NORMALS: regular rate, regular rhythm, S1 normal heart sound present, S2 normal heart sound present, No gallops present (Cardio), No murmurs present (Cardio), No rub (Cardio) and Peripheral pulses 2+ throughout RATE: regular rate RHYTHM: regular rhythm HEART SOUNDS: S1 normal heart sound present and S2 normal heart sound present PERIPHERAL PULSES: Peripheral pulses 2+ throughout GI: COMMON NORMALS: Normal to inspection, nondistended, normoactive bowel sounds present, Soft to palpation, non-tender, No hepatosplenomegaly present and no masses AUSCULTATION: Yes normoactive bowel sounds PALPATION: Yes Soft to palpation and Yes No hepatosplenomegaly present RECTAL EXAM: deferred Extremity: COMMON NORMALS: no clubbing, cyanosis or edema and no pedal edema Neuro: COMMON NORMALS: patient oriented x3 Urinary Catheter Management^: Angulo: Cath Placed During This Visit: yes, but has since been removed by the nurse Reason for Continuing Indwelling Catheter: Decision to DC Catheter Urinary Catheter Date of Insertion: 08/29/20 Urinary Catheter Time of Insertion: 14:25 Date Urinary Catheter Removed: 09/01/20 Time Urinary Catheter Discontinued: 18:19 Data : 09/01/20 03:11 09/01/20 03:11 A&P Assessment and plan (1) Acute on chronic respiratory failure with hypoxia and hypercapnia: Patient tells me that her home trilogy machine is broken We will have case management look into this Was noncompliant to BiPAP therapy overnight, advised of importance of BiPAP therapy this morning, agreeable to use BiPAP, PCO2 90, pH 7.37, bicarb 52.3 White blood cell count 5.6, pro-Rickey 0.07, afebrile overnight Solu-Medrol 40 every 8 hours Levaquin 750 every 24 hours Continue nebulizer treatments Monitor respiratory status closely Bilateral lower extremity Doppler vein: No DVT Blood cultures: Negative sputum cultures Lovenox for DVT prophylaxis Status: Acute (2) Acute exacerbation of chronic obstructive airways disease: Status: Acute (3) Chronic steroid use: Status: Acute (4) HIV (human immunodeficiency virus infection): Resumed home meds. Status: Chronic Qualifiers: HIV symptom status: asymptomatic Qualified Code(s): Z21 - Asymptomatic human immunodeficiency virus [HIV] infection status (5) Sinus tachycardia: -Chronic sinus tachycardia, likely related to acute respiratory failure Status: Acute (6) Chest pain: Status: Acute (7) NSTEMI (non-ST elevated myocardial infarction): -Complaints of left-sided chest pain -Baseline troponin 36, 6-hour troponin I 60, with a delta of 196, BNP 2374 -EKG does show ST depressions in inferior leads, QTC 440 ms -Echocardiogram in April showed an EF of 60%, grade 2 diastolic dysfunction, moderately elevated filling pressures, normal pulmonary artery pressure. -Repeat echo done on 09/01: LV systolic function is normal with EF of 55-60%. No significant valvular heart disease is noted. Normal RV size and function. Compared to prior echocardiogram from 04/24/2020, no significant changes are noted. -Venous duplex bilateral lower extremity: No evidence of deep venous thrombosis. Plan: -Aspirin 81 mg, atorvastatin 40 mg, therapeutic Lovenox, Coreg 3.125 twice daily -Nitro paste for chest pain -BNP is elevated, will give 1 dose of Lasix 40 mg, wheezing on exam, but no bilateral lower extreme edema -If chest pain persist will consider nitro drip -Hold off on Plavix until patient seen by cardiology service -Cardiology on consult Status: Acute Attestations Medical Necessity Statement*: Patient needs to be in hospital for management of respiratory failure, NSTEMI Coding Level of Care Code Acute Senior Telecommunications Specialist for Chg Fwd Diagnoses Acute on chronic respiratory failure with hypoxia and hypercapnia J96.21; J96.22 Acute exacerbation of chronic obstructive airways disease J44.1 Chronic steroid use HIV (human immunodeficiency virus infection) Z21 HIV symptom status: asymptomatic Sinus tachycardia R00.0 Chest pain R07.9 NSTEMI (non-ST elevated myocardial infarction) I21.4
[2020-09-02 12:41] LABS: Glucose Point of Care 433 mg/dL (70-110)
[2020-09-02 13:30] LABS: NT Pro B Type Natriuretic Pept 1155 pg/mL (0-125); Procalcitonin 0.07 ng/mL (0-0.5)
[2020-09-02] MEDS: levofloxacin-dextrose 5 % 750 MG/150 ML PREMIX 100 MG IV (14:52)
--- NOTE | 2020-09-02 16:13 | PC.NURSE ---
1515 Transfered via wheelchair to [facility] with patients own oxygen tank, her purse, phone and clinical services manager. Transported on O2 2l n/c. Tolerated well. No c/o's.
[2020-09-02 16:44] LABS: Glucose Point of Care 147 mg/dL (70-110)
[2020-09-02 19:14] LABS: Glucose Point of Care 129 mg/dL (70-110)
--- NOTE | 2020-09-02 22:06 | P.PN_ITS ---
Subjective Subjective: Interval history: Patient denies chest pain Vitals/I&O/Wt Last Vital Signs Temp 98.0 F 09/02/20 19:15 Pulse 101 H 09/02/20 20:21 Resp 18 09/02/20 20:21 BP 137/71 09/02/20 19:15 Pulse Ox 97 09/02/20 20:21 09/02/20 09/02/20 09/02/20 06:59 14:59 22:59 Intake Total 240 / 240 390 / 630 Output Total 400 / 750 Balance -400 / 240 240 / 240 390 / 630 Weight last 48 hrs Weight 95 lb Weight 93 lb Physical Exam Narrative: EXAM NARRATIVE: GENERAL: Patient is alert, awake and oriented x3. [] NECK: No jugular vein distension. [] HEENT: No cyanosis. No icterus. No pallor. [] HEART: Regular S1 and S2. No murmur, rub or gallop. [] LUNGS: Bilateral wheezes ABDOMEN: Soft, nontender and nondistended. Positive bowel sounds. No guarding, rebound or tenderness. [] CENTRAL NERVOUS SYSTEM: Grossly nonfocal. [] EXTREMITIES: Lower extremities with 1+ edema bilaterally. Pulses palpable in the lower extremities, both dorsalis pedis and posterior tibial. [] Urinary Catheter Management^: Angulo: Cath Placed During This Visit: yes, but has since been removed by the nurse Reason for Continuing Indwelling Catheter: Decision to DC Catheter Urinary Catheter Date of Insertion: 08/29/20 Urinary Catheter Time of Insertion: 14:25 Date Urinary Catheter Removed: 09/01/20 Time Urinary Catheter Discontinued: 18:19 Data : 09/01/20 03:11 09/01/20 03:11 A&P Assessment and plan (1) Troponin level elevated: Status: Acute (2) Chest pain: Status: Acute (3) Sinus tachycardia: Status: Acute (4) COPD (chronic obstructive pulmonary disease): Status: Chronic (5) Acute on chronic respiratory failure with hypoxia and hypercapnia: Status: Acute (6) HIV (human immunodeficiency virus infection): Status: Chronic Qualifiers: HIV symptom status: asymptomatic Qualified Code(s): Z21 - Asymptomatic human immunodeficiency virus [HIV] infection status Patient's chest pain symptoms are atypical. Troponins did trend up significantly. This could be secondary to demand ischemia versus true NSTEMI. Patient has a history of noncompliance. ECHO shows normal LV systolic function. No chest pain. She has completed 48 hours of anticoagulation. She wants to proceed with medical therapy at this time which is reasonable as not having chest pain symptoms and has normal LV systolic function. Continue aspirin. Patient has stayed stable without any episodes of chest pain recently. No further changes for now Thank you for involving us with care of this patient. Please call with questions. Attestations Medical Necessity Statement*: Care expected to cross 2 midnights. Coding Level of Care Code Acute Director Of Intelligence for g Fwd Diagnoses Troponin level elevated R77.8 Chest pain R07.9 Sinus tachycardia R00.0 COPD (chronic obstructive pulmonary disease) J44.9 Acute on chronic respiratory failure with hypoxia and hypercapnia J96.21; J96.22 HIV (human immunodeficiency virus infection) Z21 HIV symptom status: asymptomatic
[2020-09-02 23:40] LABS: Glucose Point of Care 192 mg/dL (70-110)
[2020-09-03] VITALS (9 sets, daily range): BP systolic 132–149; BP diastolic 74–75; PULSE 108–128; RESP 18–24; TEMP 36.7–37.2; O2SAT 92–97
[2020-09-03] MEDS: ipratropium-albuterol 3 mL Neb INHALATION ×2 (03:29→09:27)
[2020-09-03 03:38] LABS: ABG PH Result 7.48 (7.35-7.45); Alveolar-Arterial Oxygen Gradi 1.8 mmHg (5-10); Arterial Blood Gas Hematocrit 34.6 % (37-47); Base Excess ABG 22.4 mmol/L (-2.0-2.0); Blood Gas Allen Test Pos; Blood Gas Sample Site Radial, right; Blood Gas Sample Type Arterial; Carboxyhemoglobin 1.2 %THgb (0.4-20.1); HCO3 ABG 49.5 mmol/L (22-26); HGB O2 Sat 89.7 % (95-100); Ionized Calcium Level - ABG 1.2 mmol/L (1.1-1.4); Methemoglobin 0.9 % (0.4-1.5); Oxygen Device NC; Oxygen Saturation ABG 91.6; PO2 ABG 55.3 mmHg (80.0-100.0); Potassium Level - ABG 4.2 mmol/L (3.5-5.0); Total Hemoglobin 11.3 g/dL (12-16)
[2020-09-03 03:39] LABS: ABG PCO2 66.6 mmHg (35-45)
[2020-09-03] MEDS: aspirin 81 mg EC Tablet PO (05:54)
[2020-09-03 06:11] LABS: Basophils % 0.2 %; Hematocrit 35.2 % (37.0-47.0); Hemoglobin 11.3 g/dL (11.5-15.3); Lymphocytes # 0.5 10^3/uL (0.8-4.8); Lymphocytes % 8.5 %; Mean Corpuscular HGB Conc 32.1 g/dL (30.0-36.0); Mean Corpuscular Hemoglobin 28.2 pg (28.0-34.0); Mean Corpuscular Volume 87.8 fL (81-99); Mean Platelet Volume 10.3 fL (7.4-10.4); Monocytes # 0.2 10^3/uL (0.2-0.9); Monocytes % 3.3 %; Neutrophils # 5.07 10^3/uL (1.8-7.7); Neutrophils % 87.7 %; Nucleated Red Blood Cells % 0 %; Platelet Count 177 10^3/cmm (130-400); Red Blood Count 4.01 10^6/uL (4.1-5.3); White Blood Count 5.8 10^3/uL (4.0-10.0)
[2020-09-03 06:26] LABS: Anion Gap 9.5 (5-19); Blood Urea Nitrogen 20 mg/dL (6-20); Chloride 87 mmol/L (98-107); Glomerular Filtration Rate 73.7 mL/min (90-130); Glucose 340 mg/dL (65-115); Osmolality Calculated 292 mOsm/kg (285-295); Potassium 4.5 mmol/L (3.5-5.1); Sodium 133 mmol/L (136-145)
[2020-09-03 06:28] LABS: Carbon Dioxide 41 mmol/L (22-29)
[2020-09-03 06:30] LABS: Glucose Point of Care 404 mg/dL (70-110)
[2020-09-03] MEDS: carvedilol 3.125 mg Tablet PO (08:01)
[2020-09-03] MEDS: pantoprazole DR 40 mg Tablet PO (08:01)
[2020-09-03] MEDS: montelukast sodium 10 mg Tablet PO (08:01)
[2020-09-03] MEDS: sulfamethoxazole-trimeth DS 160-800 mg Tablet 1 TAB PO (08:01)
[2020-09-03] MEDS: atorvastatin 40 mg Tablet PO (08:01)
[2020-09-03] MEDS: isosorbide mononitrate ER 30 mg Tablet PO (08:01)
[2020-09-03] MEDS: NON-FORMULARY MEDICATION (Bictegrav-Emtricit-Tenofov Ala [Biktarvy] 50-200-25 mg tablet) 1 EACH PO (08:02)
[2020-09-03] MEDS: insulin glargine 100 units/1 mL 8 UNIT SUBCUT (08:03)
--- NOTE | 2020-09-03 08:48 | PM.PN ---
Subjective Subjective: Interval history: Patient is overall doing well. Denies chest pain. Vitals/I&O/Wt Last Vital Signs Temp 98.9 F 09/03/20 07:38 Pulse 110 H 09/03/20 07:38 Resp 18 09/03/20 07:38 BP 149/75 09/03/20 07:38 Pulse Ox 97 09/03/20 07:38 09/02/20 09/03/20 09/03/20 22:59 06:59 14:59 Intake Total 390 / 630 60 / 690 160 / 160 Output Total 550 / 550 Balance 390 / 630 -490 / 140 160 / 160 Weight last 48 hrs Weight 93 lb 6.4 oz Weight 95 lb Physical Exam Narrative: EXAM NARRATIVE: GENERAL: Patient is alert, awake and oriented x3. [] NECK: No jugular vein distension. [] HEENT: No cyanosis. No icterus. No pallor. [] HEART: Regular S1 and S2. No murmur, rub or gallop. [] LUNGS: Bilateral wheezes ABDOMEN: Soft, nontender and nondistended. Positive bowel sounds. No guarding, rebound or tenderness. [] CENTRAL NERVOUS SYSTEM: Grossly nonfocal. [] EXTREMITIES: Lower extremities with 1+ edema bilaterally. Pulses palpable in the lower extremities, both dorsalis pedis and posterior tibial. [] Urinary Catheter Management^: Angulo: Cath Placed During This Visit: yes, but has since been removed by the nurse Reason for Continuing Indwelling Catheter: Decision to DC Catheter Urinary Catheter Date of Insertion: 08/29/20 Urinary Catheter Time of Insertion: 14:25 Date Urinary Catheter Removed: 09/01/20 Time Urinary Catheter Discontinued: 18:19 Data : 09/03/20 05:58 09/03/20 05:58 A&P Assessment and plan (1) Troponin level elevated: (2) Chest pain: (3) Sinus tachycardia: (4) COPD (chronic obstructive pulmonary disease): (5) Acute on chronic respiratory failure with hypoxia and hypercapnia: (6) HIV (human immunodeficiency virus infection): Qualifiers: HIV symptom status: asymptomatic Qualified Code(s): Z21 - Asymptomatic human immunodeficiency virus [HIV] infection status Patient's chest pain symptoms are atypical. Troponins did trend up significantly. This could be secondary to demand ischemia versus true NSTEMI. Patient has a history of noncompliance. ECHO shows normal LV systolic function. No chest pain. She has completed 48 hours of anticoagulation. She wants to proceed with medical therapy at this time which is reasonable as not having chest pain symptoms and has normal LV systolic function. Continue aspirin. Can add plavix. Patient is ready to be discharged from cardiology standpoint. Patient informed that if notices chest pain symptoms again, to return to ER as she may benefit from coronary angiogram. Thank you for involving us with care of this patient. Please call with questions. Attestations Medical Necessity Statement*: Care expected to cross 2 midnights. Coding Level of Care Code Acute Medical Record Consultant for g Fwd Diagnoses Troponin level elevated R77.8 Chest pain R07.9 Sinus tachycardia R00.0 COPD (chronic obstructive pulmonary disease) J44.9 Acute on chronic respiratory failure with hypoxia and hypercapnia J96.21; J96.22 HIV (human immunodeficiency virus infection) Z21 HIV symptom status: asymptomatic
--- NOTE | 2020-09-03 08:48 | PC.NURSE ---
Bed bath and linen change When the patient was asked about bed bath and linen change the patient refused. The patients reason was due to that she thought she was going to be discharged today.
--- NOTE | 2020-09-03 09:24 | PM.DCS ---
Discharge Providers Date of Admission: 08/29/20 15:41 Date of Discharge: September 03, 2020 Attending Provider at Admission: Lin Bundy Attending Provider at Discharge: Sánchez De León MD Primary Care Provider: Ta Salas MD Diagnoses at Discharge Discharge Diagnosis (1) Troponin level elevated: Status: Resolved (2) Chest pain: Status: Resolved (3) Sinus tachycardia: Status: Chronic (4) COPD (chronic obstructive pulmonary disease): Status: Chronic (5) Acute on chronic respiratory failure with hypoxia and hypercapnia: Status: Resolved (6) HIV (human immunodeficiency virus infection): Status: Chronic Qualifiers: HIV symptom status: asymptomatic Qualified Code(s): Z21 - Asymptomatic human immunodeficiency virus [HIV] infection status Reason for Visit Reason for Visit: SOB/ WEAKNESS Hospital Course Hospital Course 59 year old with past medical history of medical noncompliance, HIV on Biktarvy, chronic hypoxemic,hypercapnic respiratory failure due to obstructive lung disease on 2-3L of o2 via NC and trilogy who is presenting to ER with respiratory distress. Patient has been admitted multiple time with similar complaints most recently from 08/07 to 08/08. Upon arrival patient was noted to have a PH of 7.33, PCO2 of 99.5, Po2 of 66.2, HCO3 of 52.8, while on 3.5l via NC. WBC of 6.5, hemoglobin of 11.8, hematocrit of 39.5, and platelet count of 194. Sodium of 133, potassium of 4.9, chloride of 86, bicarb of 46, BUN of 12 and creatinine of 0.5. Glucose of 413. In ER patient was given Lasix 40 mg IV x 1, Duo-neb, and Solu-medrol 125mg IV x 1. She was admitted for the management of acute on chronic respiratory failure with hypoxia and hypercapnia secondary to his acute COPD exacerbation.She was kept on duo nebs, steroids, levofloxacin, as well as BiPAP. ABG monitoring was, at the time of discharge her shortness of breath has improved, ABG has shown significant improvement. She was saturating well on 2-3 Ls of oxygen, which is her baseline oxygen.Hospital course was also complicated by development of an NSTEMI .This could be secondary to demand ischemia versus true NSTEMI. with significant delta,EKG showed ST depressions in inferior leads she was kept on ACS protocol.Echocardiogram in April showed an EF of 60%, grade 2 diastolic dysfunction, moderately elevated filling pressures, normal pulmonary artery pressure. Repeat echo done on 09/01: LV systolic function is normal with EF of 55-60%. No significant valvular heart disease is noted. Normal RV size and function. Compared to prior echocardiogram from 04/24/2020, no significant changes are noted. Venous duplex bilateral lower extremity: No evidence of deep venous thrombosis. She was discharged on aspirin Plavix, carvedilol and Lipitor. No cardiac cath or stress test was performed, as as she remained relatively chest pain-free after initiation of the medical management, and she wanted to continue with medical management for now. She will follow cardiology as an outpatient. Patient responded well to the above medical management and is being discharged in stable condition.She will continue to follow-up primary care physician as well as pulmonary as an outpatient. Physical Exam Const: COMMON NORMALS: patient oriented x3 HENMT: COMMON NORMALS: normocephalic and atraumatic HEAD & SCALP: normocephalic and atraumatic Resp: OTHER: Bilateral wheezing present in both lung field, bilateral diminished air entry. Cardio: COMMON NORMALS: regular rate, regular rhythm, S1 normal heart sound present, S2 normal heart sound present, No gallops present (Cardio), No murmurs present (Cardio), No rub (Cardio) and Peripheral pulses 2+ throughout RATE: regular rate RHYTHM: regular rhythm HEART SOUNDS: S1 normal heart sound present and S2 normal heart sound present PERIPHERAL PULSES: Peripheral pulses 2+ throughout GI: COMMON NORMALS: Normal to inspection, nondistended, normoactive bowel sounds present, Soft to palpation, non-tender, No hepatosplenomegaly present and no masses AUSCULTATION: Yes normoactive bowel sounds PALPATION: Yes Soft to palpation and Yes No hepatosplenomegaly present RECTAL EXAM: deferred Extremity: COMMON NORMALS: no clubbing, cyanosis or edema and no pedal edema Neuro: COMMON NORMALS: patient oriented x3 Urinary Catheter Management^: Angulo: Cath Placed During This Visit: yes, but has since been removed by the nurse Reason for Continuing Indwelling Catheter: Decision to DC Catheter Urinary Catheter Date of Insertion: 08/29/20 Urinary Catheter Time of Insertion: 14:25 Date Urinary Catheter Removed: 09/01/20 Time Urinary Catheter Discontinued: 18:19 Discharge Data Data Completed and Pending: Completed Studies During Hospitalization Category Date Time Status XR chest 1V wilda ble [id number] Routine Exams 08/31/20 07:00 Completed XR chest 1V wilda ble [id number] Urgent Exams 08/29/20 13:36 Completed CV echo complete* [id number] Routine Ultrasound 09/01/20 06:00 [place] [id number] Routin e Ultrasound 08/31/20 11:24 Completed Pending at discharge Category Date Time Status Basic Metabolic P korey AM LABS Lab 09/04/20 04:00 Ordered Basic Metabolic P korey AM LABS Lab 09/05/20 04:00 Ordered Blood Culture Sta t Lab 08/29/20 13:55 Results Complete Blood Co unt w/Auto AM LABS Lab 09/04/20 04:00 Ordered Complete Blood Co unt w/Auto AM LABS Lab 09/05/20 04:00 Ordered Labs from last 24 hours 09/03/20 09/03/20 09/03/20 06:26 05:58 05:58 WBC 5.8 RBC 4.01 L Hgb 11.3 L Hct 35.2 L MCV 87.8 MCH 28.2 MCHC 32.1 RDW 13.0 Plt Count 177 MPV 10.3 Neut % (Auto) 87.7 Lymph % (Auto) 8.5 [place] % (Auto) 3.3 Eos % (Auto) 0.0 Baso % (Auto) 0.2 Neut # (Auto) 5.07 Lymph # (Auto) 0.5 L [place] # (Auto) 0.2 Eos # (Auto) 0.0 Baso # (Auto) 0.0 Nucleated RBC % (a uto) 0 Nucleated RBCs # 0.0 Specimen Type Sample Site ABG pH ABG pCO2 ABG pO2 ABG HCO3 ABG O2 Saturation ABG Base Excess Adrian Test A-a O2 Gradient Hematocrit Hgb O2 Saturation Carboxyhemoglobin Methemoglobin Total Hemoglobin Sodium 133 L Potassium 4.5 Glucose 340 H Ionized Calcium O2 Delivery Device O2 Liters/Min Branch Employment Coordinator ID Chloride 87 L Carbon Dioxide 41 H Anion Gap 9.5 BUN 20 Creatinine 0.8 GFR Calculation 73.7 L POC Glucose 404 H Calculated Osmolal ity 292 Calcium 8.0 L NT-Pro-B Natriuret Pep Procalcitonin 09/03/20 09/02/20 09/02/20 03:25 23:28 18:56 WBC RBC Hgb Hct MCV MCH MCHC RDW Plt Count MPV Neut % (Auto) Lymph % (Auto) [place] % (Auto) Eos % (Auto) Baso % (Auto) Neut # (Auto) Lymph # (Auto) [place] # (Auto) Eos # (Auto) Baso # (Auto) Nucleated RBC % (a uto) Nucleated RBCs # Specimen Type Arterial Sample Site Radial, right ABG pH 7.48 H ABG pCO2 66.6 H* ABG pO2 55.3 L ABG HCO3 49.5 H ABG O2 Saturation 91.6 ABG Base Excess 22.4 H Adrian Test Pos A-a O2 Gradient 1.8 L Hematocrit 34.6 L Hgb O2 Saturation 89.7 L Carboxyhemoglobin 1.2 Methemoglobin 0.9 Total Hemoglobin 11.3 L Sodium 133.0 Potassium 4.2 Glucose 227.0 H Ionized Calcium 1.2 O2 Delivery Device Nc O2 Liters/Min 2.0 Branch Employment Coordinator ID ellpe Chloride Carbon Dioxide Anion Gap BUN Creatinine GFR Calculation POC Glucose 192 H 129 H Calculated Osmolal ity Calcium NT-Pro-B Natriuret Pep Procalcitonin 09/02/20 09/02/20 09/02/20 16:40 12:37 12:35 WBC RBC Hgb Hct MCV MCH MCHC RDW Plt Count MPV Neut % (Auto) Lymph % (Auto) [place] % (Auto) Eos % (Auto) Baso % (Auto) Neut # (Auto) Lymph # (Auto) [place] # (Auto) Eos # (Auto) Baso # (Auto) Nucleated RBC % (a uto) Nucleated RBCs # Specimen Type Sample Site ABG pH ABG pCO2 ABG pO2 ABG HCO3 ABG O2 Saturation ABG Base Excess Adrian Test A-a O2 Gradient Hematocrit Hgb O2 Saturation Carboxyhemoglobin Methemoglobin Total Hemoglobin Sodium Potassium Glucose Ionized Calcium O2 Delivery Device O2 Liters/Min Branch Employment Coordinator ID Chloride Carbon Dioxide Anion Gap BUN Creatinine GFR Calculation POC Glucose 147 H 433 H Calculated Osmolal ity Calcium NT-Pro-B Natriuret Pep 1155 H Procalcitonin 0.07 Vitals: Last Vital Signs Temp 98.9 F 09/03/20 07:38 Pulse 110 H 09/03/20 07:38 Resp 18 09/03/20 07:38 BP 149/75 09/03/20 07:38 Pulse Ox 97 09/03/20 07:38 Discharge Plan Discharge Patient Disposition: Home Condition: Stable Prescriptions: New atorvastatin 40 mg Tablet 40 mg PO Q24H 30 Days Qty: 30 RF: 3 isosorbide mononitrate 30 mg Tablet Extended Release 24 Hr 30 mg PO DAILY 30 Days RF: 0 carvedilol 3.125 mg Tablet 3.125 mg PO BID 30 Days Qty: 60 RF: 0 Plavix 75 mg tablet 75 mg PO DAILY Qty: 30 RF: 0 aspirin 81 mg tablet,chewable 81 mg PO DAILY Qty: 30 RF: 3 Continued montelukast [Singulair] 10 mg tablet 10 mg PO DAILY RF: 0 albuterol sulfate [ProAir HFA] 90 mcg/actuation HFA aerosol inhaler 2 puff INHALATION Q4H PRN (Reason: Shortness Of Breath) RF: 0 Biktarvy 50-200-25 mg tablet 1 tab PO DAILY RF: 0 aspirin 81 mg Tablet,Delayed Release (Dr/Ec) 81 mg PO QAM RF: 0 Lasix 20 mg tablet 40 mg PO DAILY RF: 0 prednisone 50 mg tablet 50 mg PO DAILY Qty: 5 RF: 0 Spiriva with HandiHaler 18 mcg Capsule, W/Inhalation Device 1 cap INHALATION DAILY RF: 0 budesonide-formoterol [Symbicort] 160-4.5 mcg/actuation Hfa Aerosol Inhaler 2 puff INHALATION BID RF: 0 ipratropium-albuterol 0.5 mg-3 mg(2.5 mg base)/3 mL Solution For Nebulization 3 ml INHALATION QID PRN (Reason: Shortness Of Breath) Qty: 180 RF: 0 (DME) glucometer See Rx Instructions .Route .MEDSUPPLY Qty: 1 RF: 0 insulin aspart U-100 [Novolog Flexpen U-100 Insulin] 100 unit/mL (3 mL) insulin pen See Rx Instructions .ROUTE .COMPLEX Qty: 15 RF: 0 sulfamethoxazole-trimethoprim 800-160 mg tablet See Rx Instructions .ROUTE .COMPLEX RF: 0 prednisone 5 mg Tablet 10 mg PO DAILY Qty: 60 RF: 0 Discharge Orders: Discharge Order (Routine); Ordered 09/03/20 Ordered By: Sánchez De León Referrals: Mingo Donahue M.D [Physician] - 10/07/20 3:45 pm Susana Carballo FNP [Nurse Practitioner] - 09/09/20 2:45 pm Yamilex Bearden MD [Physician] - 09/19/20 10:00 am Discharge Diet: Regular Discharge Activity: Resume usual activity Patient Instructions: Type 2 Diabetes, Heart Failure (DC), How to Check Your Blood Sugar (DC), Chronic Obstructive Pulmonary Disease (DC), Opioid Safety Discharge Attestations Time Spent in Discharge Care*: less than 30 min Specific Discharge Activities: educating patient, educating and/or supporting family/caregiver, discussing with pcp/other providers, discussing with case maker/social workers/dc planners, documenting/other paperwork and evaluating patient/reviewing data Status at Discharge: Cognitive status at discharge: cognitively intact, Behavioral status at discharge: cooperative, Functional status at discharge: independent ambulation Overall status at discharge: patient is back to baseline Quality Metrics Clinical Quality Measures During this hospital stay, did patient experience: None Coding Level of Care Code Acute Chg FW DC note Exam Detailed Diagnoses Troponin level elevated R77.8 Chest pain R07.9 Sinus tachycardia R00.0 COPD (chronic obstructive pulmonary disease) J44.9 Acute on chronic respiratory failure with hypoxia and hypercapnia J96.21; J96.22 HIV (human immunodeficiency virus infection) Z21 HIV symptom status: asymptomatic
--- NOTE | 2020-09-03 10:38 | PC.NURSE ---
PT HAS DONE WELL FOR ME TODAY. PT HAS NOT HAD ANY COMPLAINTS OF PAIN. PT WAS REQUESTING TO LEAVE FIRST THING THIS MORNING. THIS NURSE NOTIFIED THE DOCTOR OF THE PTS REQUESTS. DOCTOR SAID HE WOULD BE UP TO SPEAK WITH TH PT SHORTLY. DECISION TO D/C PATIENT WAS MADE. DISCHARGE PAPERWORK WAS OBTAINED AND REVIEWED WITH PT. ALL QUESTIONS ANSWERED. FOUR MEDICATIONS WERE SENT TO [facility], THE OTHER TWO WERE GIVEN TO PATIENT VIA PRESCRIPTION. APPOINTMENTS WERE MADE FOR PATIENT. IV WAS REMOVED. PT TOLERATED WELL. CATHETER TIP INTACT. ALL QUESTIONS WERE ANSWERED. PT WAS SAFELY WHEELED OUT BY THIS NURSE AT 0940.
== END 2020-09-03 09:40 | disposition home or self-care (01) | DRG 189 ==
LOC: ER 15:59 → ICU 16:04 → MEDSURG 09-02 15:35
PROVIDERS: Family Medicine; Admitting Provider Hospitalist; Emergency Provider Family Medicine; PCP Family Medicine; Visit Provider Internal Medicine
DX: J96.22 Acute and chronic respiratory failure with hypercapnia (principal); I21.A1 Myocardial infarction type 2; J44.1 Chronic obstructive pulmonary disease with (acute) exacerbation; I50.30 Unspecified diastolic (congestive) heart failure; E46 Unspecified protein-calorie malnutrition; Z68.1 Body mass index [BMI] 19.9 or less, adult; E87.2 Acidosis; J96.21 Acute and chronic respiratory failure with hypoxia; Z21 Asymptomatic human immunodeficiency virus [HIV] infection status; Z79.899 Other long term (current) drug therapy; Z99.81 Dependence on supplemental oxygen; K21.9 Gastro-esophageal reflux disease without esophagitis; F17.210 Nicotine dependence, cigarettes, uncomplicated; Z79.52 Long term (current) use of systemic steroids; R00.0 Tachycardia, unspecified; Z79.51 Long term (current) use of inhaled steroids; Z79.82 Long term (current) use of aspirin
CPT/HCPCS: 36415; 36416; 36600; 51702; 71045; 80048; 80051; 80053; 81003; 82330; 82803; 82805; 82962; 83605; 83735; 83880; 84145; 84484; 85025; 87040; 93005; 93306; 93970; 94640; 94660; 96372; 96374; 96375; 99285; J1650; J1815 ×2; J1940; J1956; J2060; J2405; J2920; J2930

== ENCOUNTER 2020-09-18 15:53 | Observation (INO) | payer MEDICAID, SELFPAY ==
[2020-09-18] VITALS (7 sets, daily range): BP systolic 103–131; BP diastolic 76–88; PULSE 110–122; RESP 16–29; TEMP 36.4–37; O2SAT 93–99; BMI 16.4
--- NOTE | 2020-09-18 15:57 | XR_ITS ---
WS: [id number] Portable AP upright chest, 09/18/2020 Clinical Data: dyspnea Comparison: Portable chest, 08/31/2020. Findings: No nodules, masses or effusions are seen. The heart is normal. The pulmonary vascularity is not increased. No pneumonia or pneumothorax is seen. The diaphragms are flattened. Monitor leads are on the chest wall XR/XR chest 1V portable [id number] Impression: Hyperinflation.
--- NOTE | 2020-09-18 15:59 | ECG_ITS ---
[facility] Test Date: 2020-09-18 Pat Name: Adore Broussard Department: Room: Gender: Female Account Manager: : 1960 Requested By: Ronnell Terry Order Number: [id number] Villarreal MD: Marianna Guadalupe M.D. Measurements Intervals [place] Rate: 116 P: 85 OK: 138 QRS: 87 QRSD: 78 T: 78 QT: 341 QTc: 475 Interpretive Statements SINUS TACHYCARDIA RIGHT ATRIAL ENLARGEMENT [0.3mV P WAVE] LEFT ATRIAL ENLARGEMENT [-0.15mV P WAVE IN V1/V2] Compared to ECG 09/07/2020 19:15:05 Sinus rhythm no longer present Electronically Signed On 09-19-2020 14:16:24 CDT by Marianna Guadalupe M.D. [id number]
--- NOTE | 2020-09-18 16:11 | USCV_ITS ---
Bobo Adore Age: 60 Gender: F : 1960 Exam Date: 09/18/2020 16:34 Ordering Phys: Ronnell Terry MD Technologist: Exam Location: [facility] [place] Indication: RT LEG SWELLING HISTORY: Patient has history of. DVT. PROCEDURES: Venous duplex imaging was performed in only the right lower extremity. The following venous structures were evaluated: common femoral vein, profunda vein, proximal portion of the greater saphenous vein, superficial femoral vein, and the popliteal vein. In addition, the posterior tibial and peroneal trunk were evaluated. On the right side, the common femoral, superficial femoral, profunda femoral, popliteal, posterior tibial, greater saphenous veins and the peroneal trunk were identified and interrogated in the standard fashion. These veins were found to be easily compressible with spontaneous blood flow. No evidence of insufficiency or thrombus noted. FINDINGS: Normal 2-D Doppler and augmentation and compressibility throughout the lower extremity venous structures. Additional imaging through the proximal calf veins also reveals no thrombus. Limited evaluation of the greater saphenous vein is patent with no thrombus.. CONCLUSIONS No evidence of DVT in the above-mentioned identifiable veins. Dr Darren Blankenship MD [facility] (Electronically Signed) Final Date: 18 September 2020 18:24 S
[2020-09-18 16:26] LABS: ABG PCO2 88.7 mmHg (35-45); ABG PH Result 7.37 (7.35-7.45); Arterial Blood Gas Hematocrit 37.1 % (37-47); Base Excess ABG 21.2 mmol/L (-2.0-2.0); Blood Gas Operator Identificat AMH; Blood Gas Sample Site Brachial, left; Blood Gas Sample Type Arterial; Carboxyhemoglobin 2.5 %THgb (0.4-20.1); HCO3 ABG 51.1 mmol/L (22-26); HGB O2 Sat 94.1 % (95-100); Methemoglobin 0.9 % (0.4-1.5); Oxygen Device NC; PO2 ABG 88.2 mmHg (80.0-100.0); Total Hemoglobin 12.1 g/dL (12-16)
[2020-09-18] MEDS: LORazepam 2 mg/mL INJ 1 mL 0.5 MG IVP (17:14)
[2020-09-18 17:21] LABS: Basophils % 0.3 %; Eosinophils # 0.1 10^3/uL (0.0-0.8); Eosinophils % 0.7 %; Hematocrit 40.4 % (37.0-47.0); Hemoglobin 12.5 g/dL (11.5-15.3); Lymphocytes # 0.6 10^3/uL (0.8-4.8); Lymphocytes % 5.8 %; Mean Corpuscular HGB Conc 30.9 g/dL (30.0-36.0); Mean Corpuscular Volume 90.6 fL (81-99); Mean Platelet Volume 9.7 fL (7.4-10.4); Monocytes # 0.4 10^3/uL (0.2-0.9); Monocytes % 3.3 %; Neutrophils # 9.58 10^3/uL (1.8-7.7); Neutrophils % 89.6 %; Nucleated Red Blood Cells % 0 %; Platelet Count 186 10^3/cmm (130-400); Red Blood Count 4.46 10^6/uL (4.1-5.3); Red Cell Distribution Width 13.2 % (12.1-15.1); White Blood Count 10.7 10^3/uL (4.0-10.0)
--- NOTE | 2020-09-18 17:34 | PC.PHAR ---
PT STATES SHE HAS A PRIVATE NURSE ALINE THAT TAKES CARE OF HER MEDICATIONS-PT STATES SHE WILL NOT GIVE ME HER NURSES PHONE NUMBER TO VERIFY MEDICATIONS-MEDICATIONS ENTERED ARE MEDS THAT SHOW HAVE BEEN FILLED RECENTLY OR MEDS THAT WERE WRITTEN WHEN PT WAS DISCHARGED LAST-PT COULD VERIFY SOME MEDICATIONS-PT STATES SHE USED HER INSULIN TODAY
--- NOTE | 2020-09-18 17:59 | ECG_ITS ---
[facility] Test Date: 2020-09-18 Pat Name: Adore Broussard Department: Room: Gender: Female Program Dir: : 1960 Requested By: Ronnell Terry Order Number: [id number] Villarreal MD: Marianna Guadalupe M.D. Measurements Intervals [place] Rate: 117 P: 86 NC: 136 QRS: 86 QRSD: 77 T: 87 QT: 340 QTc: 476 Interpretive Statements SINUS TACHYCARDIA RIGHT ATRIAL ENLARGEMENT [0.3mV P WAVE] LEFT ATRIAL ENLARGEMENT [-0.15mV P WAVE IN V1/V2] MODERATE ST DEPRESSION [0.05+ mV ST DEPRESSION] Compared to ECG 09/18/2020 16:11:41 ST (T wave) deviation now present Electronically Signed On 09-19-2020 14:25:53 CDT by Marianna Guadalupe M.D. [email or web address]
[2020-09-18 18:06] LABS: Troponin(5th) Baseline 64 ng/L (0-10)
[2020-09-18 18:10] LABS: Alanine Aminotransferase 22 U/L (0-33); Albumin Level 3.6 g/dL (3.5-5.2); Alkaline Phosphatase 53 IU/L (35-105); Anion Gap 3.8 (5-19); Aspartate Amino Transferase 21 U/L (0-32); Blood Urea Nitrogen 12 mg/dL (6-20); Calcium 8.5 mg/dL (8.5-10.5); Chloride 87 mmol/L (98-107); Globulin 1.4 g/dL (1.3-4.6); Glomerular Filtration Rate 102.3 mL/min (90-130); Glucose 174 mg/dL (65-115); NT Pro B Type Natriuretic Pept 909 pg/mL (0-125); Osmolality Calculated 286 mOsm/kg (285-295); Potassium 4.8 mmol/L (3.5-5.1); Sodium 136 mmol/L (136-145); Total Bilirubin 0.7 mg/dL (0.15-1.2)
[2020-09-18 18:14] LABS: Carbon Dioxide 50 mmol/L (22-29)
[2020-09-18] MEDS: FUROsemide 10 mg/mL SDV 4mL 40 MG IVP (19:02)
--- NOTE | 2020-09-18 19:32 | P.HP_ITS ---
Providers/Chief Complaint Primary Care Provider: Ta Salas MD Chief Complaint: SOB History of Present Illness Adore Broussard is a 60 year old female who has multiple comorbid conditions including HIV, chronic hypoxic hypercarbic respiratory failure, uses 2 L of oxygen at home, trilogy dependent, active smoker, noncompliant with her medications presented today with chief complaint of shortness of breath. Patient is stating that for last 4 days her trilogy facemask has been malfunctioning, she has called the company who has not given her any appointment for changing the mask yet. She is smoking 3 to 4 cigarettes a day, no recent fever, no excessive bouts of cough or sputum production, no chest pain diarrhea or abdominal pain. She has stopped using Lasix stating it does not work . She was discharged on 09/03 after management of NSTEMI which was deemed secondary to demand ischemia, she has grade 2 diastolic dysfunction EF 60% she was asked to follow-up with cardiology on outpatient settings. Patient is stating that her symptoms started with seasonal allergies, she is endorsing runny nose and runny eyes. She lives alone, she is stating that her niece Charo Guerin should be notified about change in her her clinical status if she requires intubation. Diagnosis in the ER revealed clinical signs of respiratory distress she was requiring BiPAP settings 12/6 FiO2 40%, respiratory rate 14, chest x-ray shows hyperinflation no signs of sepsis pH compensated with hypercapnia, hypoxia evident, bicarb in compensation to acute on chronic hypercapnia, right lower extremity Doppler did not reveal DVT BNP 900 Review of Systems Const: Reports: body aches; Denies: fever(s) Eyes: Denies: change in vision ENMT: Denies: throat pain Card: Reports: swelling of feet/ankles and dyspnea on exertion; Denies: chest pain Resp: Reports: dyspnea and productive cough GI: Denies: abdominal pain : Denies: flank pain Musc: Denies: neck pain Skin/Breast: Reports: lesions; Denies: rash Neuro: Denies: headache(s) Psych: Reports: anxiety Endo: Denies: polyuria Yazan/Lymph: Denies: easy bruising All/Imm: Denies: urticaria Medications/Allergies Home Medications Medication Instructions Recorded Confirmed Last Taken Type albuterol sulfate 90 mcg/actuation 2 puff INHALATION Q4H PRN 10/03/19 09/18/20 Unknown History aerosol inhaler montelukast 10 mg tablet 10 mg PO DAILY 10/03/19 09/18/20 08/28/20 History Biktarvy 1 tab PO QAM 04/23/20 09/18/20 09/18/20 History Spiriva with HandiHaler 1 cap INHALATION DAILY 05/05/20 09/18/20 09/18/20 History budesonide-formoterol [Symbicort] 2 puff INHALATION BID 05/05/20 09/18/20 Unknown History ipratropium-albuterol 3 ml INHALATION QID PRN #180 ml 05/16/20 09/18/20 Unknown Rx glucometer #1 ea 06/16/20 09/18/20 Unknown Rx insulin aspart U-100 [Novolog See Rx Instructions .ROUTE 06/16/20 09/18/20 09/18/20 13:00 Rx Flexpen U-100 Insulin] .COMPLEX #15 ml 4 UNITS sulfamethoxazole-trimethoprim See Rx Instructions .ROUTE .COMPLEX 08/06/20 09/18/20 08/27/20 History prednisone 10 mg PO DAILY #60 tab 08/08/20 09/18/20 09/18/20 Rx furosemide [Lasix] 40 mg PO DAILY 08/29/20 09/18/20 08/28/20 History aspirin 81 mg PO DAILY #30 tab 09/03/20 09/18/20 Unknown Rx atorvastatin 40 mg PO Q24H 30 Days #30 tab 09/03/20 09/18/20 Unknown Rx carvedilol 3.125 mg PO BID 30 Days #60 tab 09/03/20 09/18/20 Unknown Rx clopidogrel [Plavix] 75 mg PO DAILY #30 tab 09/03/20 09/18/20 Unknown Rx isosorbide mononitrate 30 mg PO DAILY 30 Days tab 09/03/20 09/18/20 Unknown Rx [place] Capsules 1 cap PO TID 09/18/20 09/18/20 Unknown History Allergies Allergy/AdvReac Type Severity Reaction Status Date / Time Penicillins Allergy ALGY-Difficulty Verified 09/18/20 17:34 Breathing phenobarbital Allergy ALGY-Hives Verified 09/18/20 17:34 Tetanus Vaccines and Toxoid Allergy ALGY-Hives Verified 09/18/20 17:34 PFSH Acute 2 PFSH: Medical History Acute exacerbation of chronic obstructive airways disease Acute on chronic respiratory failure with hypoxia and hypercapnia Chest pain CHF (congestive heart failure) Ejection fraction 57% on echocardiogram done 05/15/2020 Chronic respiratory failure with hypoxia and hypercapnia Chronic steroid use Congestive heart failure COPD (chronic obstructive pulmonary disease) Edema of left lower extremity GERD (gastroesophageal reflux disease) HIV (human immunodeficiency virus infection) Nicotine addiction NSTEMI (non-ST elevated myocardial infarction) Protein calorie malnutrition Sinus tachycardia Troponin level elevated Surgical History H/O laparoscopy History of History of hysterectomy Family History Mother COPD (chronic obstructive pulmonary disease) Father CAD (coronary artery disease) Social History Smoking and tobacco status: current every day smoker cigarettes Years cigaret singh smoked: 50 [ Other cigarette details: Hx of 1 PPD x 15 Years ] Second hand smoke exposure: Yes Alcohol intake: current Alcohol intake frequency: holidays/special occasions only Lives independently: Yes Household members: none Marital status: / Current occupational status: disabled History of recent travel: No Current gender identity: Female Female Reproductive History: Date of last menstrual period: 06/27/20 Vitals/I&O/Wt Last Vital Signs Temp 98.6 F 09/18/20 16:01 Pulse 114 H 09/18/20 17:30 Resp 20 H 09/18/20 16:30 BP 103/80 09/18/20 16:30 Pulse Ox 96 09/18/20 17:30 Weight last 48 hrs Weight 39.463 kg Physical Exam Narrative: EXAM NARRATIVE: female, who appears more than stated age, malnourished, cachectic appearance On BiPAP settings 12/6 FiO2 40% tidal volume 700-1000ml respiratory rate 14 She is able to answer my questions appropriately S1, S2 sinus tachycardia Active signs of heart failure pedal edema 2+ bilaterally No signs of ischemic, gangrene, hyperemia of dorsal surface of foot bilaterally noted Soft abdomen, no signs of peritonitis, nontender EOMI, PERRLA GCS 15, no active neurological deficits Drowsy however no active neurological deficits able to answer my questions appropriately, Assisted bilateral breath sounds no audible stridor or wheezing Data : 09/18/20 17:15 09/18/20 17:15 A&P Assessment and plan (1) Acute and chronic respiratory failure: Status: Acute (2) Acute exacerbation of chronic obstructive airways disease: Status: Acute (3) Protein-calorie malnutrition, moderate: Status: Chronic (4) BMI less than 19,adult: Status: Chronic (5) Nicotine addiction: Status: Chronic Qualifiers: Nicotine product type: cigarettes Substance use status: other nicotine- induced disorder Qualified Code(s): F17.218 - Nicotine dependence, cigarettes, with other nicotine-induced disorders Additional A&P Information Acute COPD exacerbation Patient is an active smoker, noncompliant with her medications, has not been able to use her trilogy for last 4 nights No active source of infection chest x-ray shows hyperinflation, sinus tachycardia on telemetry I will request D-dimer to rule out PE lower extremity Doppler did not reveal DVT, I would continue her albuterol, long-acting beta agonist inhaled steroids and tiotropium for now I would not add any antibiotics at this point in time, Considering her gradual decline in functional status she is an ideal candidate for pulmonary rehab, patient is refusing going to a long-term, kindly readdress in the morning, she lives alone and wants her niece Charo uGerin to be notified if she requires intubation Acute on chronic hypoxic hypercarbia, hypoxia improved with BiPAP usage however hypercarbia seems compensated. Her bicarb seems to run 50, for now I would continue Lasix if her bicarb is getting worse would recommend acetazolamide to prevent alkalosis however would not like to decrease below 40-45 which would increase her hypoxia because of imbalance For protein calorie malnourishment, dietary consult Full code Consistent carb diet DVT prophylaxis Lovenox Attestations Medical Necessity Statement*: Anticipating discharge within 48 hours Acute on chronic worsening of hypoxia and hypercarbia requiring BiPAP in the hospital, patient is stating that her trilogy at home is malfunctioning because of some mechanical troubleshooting requiring observation in the hospital with BiPAP Time Spent in Patient Care: 30-minute Coding Level of Care Code 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
--- NOTE | 2020-09-18 19:35 | ED_ITS ---
HPI - SOB/Dyspnea General: Chief Complaint: Shortness of Breath/Dyspnea Stated Complaint: SOB Time Seen by Provider: 09/18/20 15:57 History of Present Illness: HPI Narrative: The patient is a 60-year-old female with past medical history COPD and CHF. She has chronic respiratory failure and is on BiPAP as well. Her home BiPAP is broken. She wears 2 L and increased it to 4 L and was in respiratory distress when EMS arrived. Her oxygen sat is in the upper 90s on arrival. She is tachypneic and breathing shallow respirations in her typical presentation. She is requesting BiPAP. MD elicited complaint: shortness of breath and cough Pertinent past history: COPD and congestive heart failure Context: medication noncompliance Severity: moderate Exacerbating factors: exertion Relieving factors: oxygen Known history of: COPD and congestive heart failure Associated symptoms: Reports cough; Deny abdominal pain, chest pain, dizziness, extremity pain, orthopnea, palpitations or polyuria Treatment prior to arrival: oxygen Review of Systems General: Reports: 10 or more systems reviewed and unremarkable except in HPI and below Const: Denies: fatigue Eyes: Denies: change in vision, blurry vision or eye redness ENMT: Denies: throat pain, swelling of lips/tongue, ear or mastoid pain or nasal congestion Card: Denies: chest pain, palpitations, irregular heart rhythm, edema, dyspnea on exertion or orthopnea Resp: Reports: dyspnea, non-productive cough and wheezing; Denies: productive cough GI: Denies: abdominal pain, diarrhea or GI cramping : Denies: flank pain, difficulty voiding, urinary frequency or urinary urgency Musc: Denies: neck pain, back pain, extremity pain, joint pain, joint redness, limited range of motion or muscle weakness Skin/Breast: Denies: rash, pruritus, erythema, skin pain or skin tenderness Neuro: Denies: headache(s), numbness in extremities, weakness in extremities, sensory changes, difficulty walking, dizziness, confusion or Slurred speech present Psych: Denies: anxiety or depression Endo: Denies: polyuria All/Imm: Denies: urticaria, throat swelling or tongue swelling PFSH ED PFSH: Medical History Acute exacerbation of chronic obstructive airways disease Acute on chronic respiratory failure with hypoxia and hypercapnia Chest pain CHF (congestive heart failure) Ejection fraction 57% on echocardiogram done 05/15/2020 Chronic respiratory failure with hypoxia and hypercapnia Chronic steroid use Congestive heart failure COPD (chronic obstructive pulmonary disease) Edema of left lower extremity GERD (gastroesophageal reflux disease) HIV (human immunodeficiency virus infection) Nicotine addiction NSTEMI (non-ST elevated myocardial infarction) Protein calorie malnutrition Sinus tachycardia Troponin level elevated Surgical History H/O laparoscopy History of History of hysterectomy Family History Mother COPD (chronic obstructive pulmonary disease) Father CAD (coronary artery disease) Social History Smoking and tobacco status: current every day smoker cigarettes Years cigarettes smoked: 50 [ Other cigarette details: Hx of 1 PPD x 15 Years ] Second hand smoke exposure: Yes Alcohol intake: current Alcohol intake frequency: holidays/special occasions on ly Lives independently: Yes Household members: none Marital status: / Current occupational status: disabled History of recent travel: No Current gender identity: Female Female Reproductive History: Date of last menstrual period: 06/27/20 Physical Exam Const: COMMON NORMALS: no acute distress, average body habitus, patient oriented x3, no limitations, healthy appearing, alert and well nourished GENERAL APPEARANCE: cooperative, comfortable, well kempt and well developed ORIENTATION/CONSCIOUSNESS: Yes awake, Yes oriented to person, Yes oriented to place and Yes oriented to time HENMT: COMMON NORMALS: normocephalic, external ears normal and Normal external nose present HEAD & SCALP: normal to inspection and normocephalic NOSE: Normal external nose present EXTERNAL EAR: Yes external ears normal MOUTH: Normal oral and palatal mucosa present THROAT: posterior oropharynx normal Eye: COMMON NORMALS: Equal, round and reactive pupils present and EOMs intact bilaterally GENERAL EYE: appearance normal, both eyes and all related structures PUPIL: Yes Equal, round and reactive pupils present Neck/C-Spine: COMMON NORMALS: full ROM, no lymphadenopathy, no meningeal signs and no JVD GENERAL: Yes normal visual inspection Lymph: LYMPHATIC: no lymphadenopathy noted Chest: COMMONS NORMALS: normal inspection of the chest and normal palpation of entire chest wall Resp: COMMON NORMALS: normal respiratory effort and No retractions EFFORT & INSPECTION: Yes tachypneic, Yes decreased respiratory effort, Yes labored, Yes Actively coughing and Yes uses accessory muscles AUSCULTATION: diminished lung sounds Cardio: COMMON NORMALS: no JVD, regular rate, regular rhythm, S1 normal heart sound present, S2 normal heart sound present and Peripheral pulses 2+ throughout RATE: regular rate RHYTHM: regular rhythm HEART SOUNDS: S1 normal heart sound present and S2 normal heart sound present PERIPHERAL PULSES: Peripheral pulses 2+ throughout GI: COMMON NORMALS: Normal to inspection, nondistended, normoactive bowel sounds present, Soft to palpation, non-tender and no masses INSPECTION: Yes normal to inspection PALPATION: Yes Soft to palpation : COMMON NORMALS: Yes no CVA tenderness BLADDER/KIDNEY EXAM: Yes no CVA tenderness Back/Pelvis: COMMON NORMALS: no CVA tenderness, thoracic and lumbar spine normal to inspection, no thoracic nor lumbar tenderness and thoraco-lumbar ROM normal Extremity: COMMON NORMALS: normal to inspection, full ROM, capillary refill normal, no joint enlargement and no pedal edema GENERAL: Yes normal exam except as noted Neuro: COMMON NORMALS: patient oriented x3, CN's II-XII intact bilaterally, m oves all extremities, no focal motor deficits, no sensory deficits noted and gait normal SENSORIUM/ORIENTATION: Yes alert, Yes oriented to person, Yes oriented to place and Yes oriented to time MENINGEAL SIGNS: Yes no meningeal signs Psych: COMMON NORMALS: mental status grossly normal, Normal thought process present, cooperative, normal affect and speech normal APPEARANCE: Yes well kempt ATTITUDE: Yes calm SPEECH: Yes normal speech THOUGHT PROCESS: Normal thought process present Skin: COMMON NORMALS: no rashes or lesions noted GENERAL SKIN EXAM: no rashes or lesions noted Course Vital Signs: Vital signs: Vital Signs Temperature 98.6 F 09/18/20 16:01 Pulse Rate 114 H 09/18/20 17:30 Respiratory Rate 20 H 09/18/20 16:30 Blood Pressure 103/80 09/18/20 16:30 Pulse Oximetry 96 09/18/20 17:30 MDM - SOB/Dyspnea MDM Narrative: Medical decision making narrative: Patient comes in complaining of shortness of breath requesting BiPAP. ABG shows pH of 88.7. Normal pH at 7.37. She is doing fine on the BiPAP. Discussed with Dr. Oneil who accepts for obs. Lab Data: Labs: Lab Results 09/18/20 09/18/20 09/18/20 Range/Units 16:15 17:15 17:15 WBC 10.7 H (4.0-10.0) 10^3/ uL RBC 4.46 (4.1-5.3) 10^6/u L Hgb 12.5 (11.5-15.3) g/dL Hct 40.4 (37.0-47.0) % MCV 90.6 (81-99) fL MCH 28.0 (28.0-34.0) pg MCHC 30.9 (30.0-36.0) g/dL RDW 13.2 (12.1-15.1) % Plt Count 186 (130-400) 10^3/c mm MPV 9.7 (7.4-10.4) fL Neut % (Auto) 89.6 % Lymph % (Auto) 5.8 % [place] % (Auto) 3.3 % Eos % (Auto) 0.7 % Baso % (Auto) 0.3 % Neut # (Auto) 9.58 H (1.8-7.7) 10^3/u L Lymph # (Auto) 0.6 L (0.8-4.8) 10^3/u L [place] # (Auto) 0.4 (0.2-0.9) 10^3/u L Eos # (Auto) 0.1 (0.0-0.8) 10^3/u L Baso # (Auto) 0.0 (0.0-0.1) 10^3/u L Nucleated RBC % (a uto) 0 % Nucleated RBCs # 0.0 /100WBC Specimen Type Arterial Sample Site Brachial, left ABG pH 7.37 (7.35-7.45) ABG pCO2 88.7 H* (35-45) mmHg ABG pO2 88.2 (80.0-100.0) mmH g ABG HCO3 51.1 H (22-26) mmol/L ABG Base Excess 21.2 H (-2.0-2.0) mmol/ L Adrian Test N/a Hematocrit 37.1 (37-47) % Hgb O2 Saturation 94.1 L (95-100) % Carboxyhemoglobin 2.5 (0.4-20.1) %THgb Methemoglobin 0.9 (0.4-1.5) % Total Hemoglobin 12.1 (12-16) g/dL O2 Delivery Device Nc O2 Liters/Min 3.0 % FiO2 32.0 % Element Setter ID Amh Sodium 136 (136-145) mmol/L Potassium 4.8 (3.5-5.1) mmol/L Chloride 87 L (98-107) mmol/L Carbon Dioxide 50 H* (22-29) mmol/L Anion Gap 3.8 L (5-19) BUN 12 (6-20) mg/dL Creatinine 0.6 (0.5-0.9) mg/dL GFR Calculation 102.3 (90-130) mL/min Glucose 174 H (65-115) mg/dL Calculated Osmolal ity 286 (285-295) mOsm/k g Calcium 8.5 (8.5-10.5) mg/dL Total Bilirubin 0.7 (0.15-1.2) mg/dL AST 21 (0-32) U/L ALT 22 (0-33) U/L Alkaline Phosphata se 53 (35-105) IU/L Troponin T Baselin e (0-10) ng/L NT-Pro-B Natriuret Pep 909 H (0-125) pg/mL Total Protein 5.0 L (6.6-8.7) g/dL Albumin 3.6 (3.5-5.2) g/dL Globulin 1.4 (1.3-4.6) g/dL 09/18/20 Range/Units 17:15 WBC (4.0-10.0) 10^3/ uL RBC (4.1-5.3) 10^6/u L Hgb (11.5-15.3) g/dL Hct (37.0-47.0) % MCV (81-99) fL MCH (28.0-34.0) pg MCHC (30.0-36.0) g/dL RDW (12.1-15.1) % Plt Count (130-400) 10^3/c mm MPV (7.4-10.4) fL Neut % (Auto) % Lymph % (Auto) % [place] % (Auto) % Eos % (Auto) % Baso % (Auto) % Neut # (Auto) (1.8-7.7) 10^3/u L Lymph # (Auto) (0.8-4.8) 10^3/u L [place] # (Auto) (0.2-0.9) 10^3/u L Eos # (Auto) (0.0-0.8) 10^3/u L Baso # (Auto) (0.0-0.1) 10^3/u L Nucleated RBC % (a uto) % Nucleated RBCs # /100WBC Specimen Type Sample Site ABG pH (7.35-7.45) ABG pCO2 (35-45) mmHg ABG pO2 (80.0-100.0) mmH g ABG HCO3 (22-26) mmol/L ABG Base Excess (-2.0-2.0) mmol/ L Adrian Test Hematocrit (37-47) % Hgb O2 Saturation (95-100) % Carboxyhemoglobin (0.4-20.1) %THgb Methemoglobin (0.4-1.5) % Total Hemoglobin (12-16) g/dL O2 Delivery Device O2 Liters/Min % FiO2 % Element Setter ID Sodium (136-145) mmol/L Potassium (3.5-5.1) mmol/L Chloride (98-107) mmol/L Carbon Dioxide (22-29) mmol/L Anion Gap (5-19) BUN (6-20) mg/dL Creatinine (0.5-0.9) mg/dL GFR Calculation (90-130) mL/min Glucose (65-115) mg/dL Calculated Osmolal ity (285-295) mOsm/k g Calcium (8.5-10.5) mg/dL Total Bilirubin (0.15-1.2) mg/dL AST (0-32) U/L ALT (0-33) U/L Alkaline Phosphata se (35-105) IU/L Troponin T Baselin e 64 H (0-10) ng/L NT-Pro-B Natriuret Pep (0-125) pg/mL Total Protein (6.6-8.7) g/dL Albumin (3.5-5.2) g/dL Globulin (1.3-4.6) g/dL Discharge Plan Discharge Patient Disposition: Placed in Observation Clinical Impression: Acute exacerbation of chronic obstructive airways disease, Acute and chronic respiratory failure Coding Level of Care Code 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
[2020-09-18 19:46] LABS: Troponin 5 2HR 52.63 ng/L (0-10)
[2020-09-18 19:51] LABS: ABG PCO2 80.2 mmHg (35-45); ABG PH Result 7.42 (7.35-7.45); Alveolar-Arterial Oxygen Gradi 6.2 mmHg (5-10); Arterial Blood Gas Hematocrit 38.4 % (37-47); Base Excess ABG 22.9 mmol/L (-2.0-2.0); Blood Gas Operator Identificat HARKR; Blood Gas Sample Site Brachial, right; Blood Gas Sample Type Arterial; Carboxyhemoglobin 2.2 %THgb (0.4-20.1); HCO3 ABG 52.1 mmol/L (22-26); HGB O2 Sat 88.3 % (95-100); Ionized Calcium Level - ABG 1.2 mmol/L (1.1-1.4); Methemoglobin 0.7 % (0.4-1.5); Oxygen Device BIPAP; PO2 ABG 55.7 mmHg (80.0-100.0); Potassium Level - ABG 4.4 mmol/L (3.5-5.0); Total Hemoglobin 12.5 g/dL (12-16)
[2020-09-18 21:01] LABS: D Dimer <= 0.27 ug/mIFEU (0-0.59)
[2020-09-18] MEDS: atorvastatin 40 mg Tablet PO (21:57)
[2020-09-18] MEDS: enoxaparin 40 mg/0.4 mL Syringe SUBCUT (21:58)
[2020-09-18 22:12] LABS: Glucose Point of Care 434 mg/dL (70-110)
[2020-09-19] VITALS (13 sets, daily range): BP systolic 124–152; BP diastolic 54–88; PULSE 112–124; RESP 16–20; TEMP 36.7–37.7; O2SAT 93–97
[2020-09-19 00:02] LABS: Troponin 5 6HR 44.06 ng/L (0-10)
[2020-09-19] MEDS: ipratropium-albuterol 3 mL Neb INHALATION ×3 (04:00→14:36)
--- NOTE | 2020-09-19 04:48 | PC.NURSE ---
incontinent of urine
[2020-09-19 05:52] LABS: Hematocrit 35.9 % (37.0-47.0); Hemoglobin 11.2 g/dL (11.5-15.3); Lymphocytes # 0.6 10^3/uL (0.8-4.8); Lymphocytes % 10.9 %; Mean Corpuscular HGB Conc 31.2 g/dL (30.0-36.0); Mean Corpuscular Hemoglobin 27.9 pg (28.0-34.0); Mean Corpuscular Volume 89.5 fL (81-99); Mean Platelet Volume 10.7 fL (7.4-10.4); Monocytes # 0.2 10^3/uL (0.2-0.9); Monocytes % 3.3 %; Neutrophils # 4.64 10^3/uL (1.8-7.7); Neutrophils % 85.4 %; Nucleated Red Blood Cells % 0 %; Platelet Count 165 10^3/cmm (130-400); Red Blood Count 4.01 10^6/uL (4.1-5.3); Red Cell Distribution Width 13.1 % (12.1-15.1); White Blood Count 5.4 10^3/uL (4.0-10.0)
[2020-09-19 06:18] LABS: Anion Gap 5.2 (5-19); Blood Urea Nitrogen 17 mg/dL (6-20); Calcium 8.4 mg/dL (8.5-10.5); Chloride 84 mmol/L (98-107); Glomerular Filtration Rate 85.6 mL/min (90-130); Glucose 274 mg/dL (65-115); Osmolality Calculated 289 mOsm/kg (285-295); Potassium 4.2 mmol/L (3.5-5.1); Sodium 134 mmol/L (136-145)
[2020-09-19 06:20] LABS: Carbon Dioxide 49 mmol/L (22-29)
[2020-09-19 06:29] LABS: Glucose Point of Care 353 mg/dL (70-110)
[2020-09-19 07:33] LABS: ABG PH Result 7.48 (7.35-7.45); Arterial Blood Gas Hematocrit 34.7 % (37-47); Base Excess ABG 25.7 mmol/L (-2.0-2.0); Blood Gas Allen Test Pos; Blood Gas Operator Identificat ED; Blood Gas Sample Site Radial, left; Blood Gas Sample Type Arterial; HCO3 ABG 53.3 mmol/L (22-26); Oxygen Device NC
[2020-09-19] MEDS: montelukast sodium 10 mg Tablet PO (07:48)
[2020-09-19] MEDS: FUROsemide 40 mg Tablet PO (07:48)
[2020-09-19] MEDS: aspirin 81 mg Chew Tablet PO (07:49)
[2020-09-19] MEDS: carvedilol 3.125 mg Tablet PO ×2 (07:49→17:54)
[2020-09-19 09:13] LABS: ABG PCO2 71.1 mmHg (35-45)
[2020-09-19 11:07] LABS: Glucose Point of Care 186 mg/dL (70-110)
--- NOTE | 2020-09-19 11:30 | P.DS_ITS ---
Discharge Providers Date of Admission: 09/18/20 19:34 Date of Discharge: September 19, 2020 Attending Provider at Admission: Dhara Oneil MD Attending Provider at Discharge: Lin Bundy Primary Care Provider: Ta Salas MD Diagnoses at Discharge Discharge Diagnosis (1) Acute and chronic respiratory failure: Status: Acute (2) Acute exacerbation of chronic obstructive airways disease: Status: Acute (3) Protein-calorie malnutrition, moderate: Status: Chronic (4) BMI less than 19,adult: Status: Chronic (5) Nicotine addiction: Status: Chronic Qualifiers: Nicotine product type: cigarettes Substance use status: other nicotine- induced disorder Qualified Code(s): F17.218 - Nicotine dependence, cigarettes, with other nicotine-induced disorders Reason for Visit Reason for Visit: SOB Hospital Course Hospital Course 60 year old female who has multiple comorbid conditions including HIV, chronic hypoxic hypercarbic respiratory failure, uses 2 L of oxygen at home, trilogy dependent, active smoker, noncompliant with her medications presented today with chief complaint of shortness of breath. Patient is stating that for last 4 days her trilogy facemask has been malfunctioning, she has called the company who has not given her any appointment for changing the mask yet. She is smoking 3 to 4 cigarettes a day, no recent fever, no excessive bouts of cough or sputum production, no chest pain diarrhea or abdominal pain. She has stopped using Lasix stating it does not work . She was discharged on 09/03 after management of NSTEMI which was deemed secondary to demand ischemia, she has grade 2 diastolic dysfunction EF 60% she was asked to follow-up with cardiology on outpatient settings. Patient is stating that her symptoms started with seasonal allergies, she is endorsing runny nose and runny eyes. She lives alone, she is stating that her niece Charo Guerin should be notified about change in her her clinical status if she requires intubation. Diagnosis in the ER revealed clinical signs of respiratory distress she was requiring BiPAP settings 12/6 FiO2 40%, respiratory rate 14, chest x-ray shows hyperinflation no signs of sepsis pH compensated with hypercapnia, hypoxia evident, bicarb in compensation to acute on chronic hypercapnia, right lower extremity Doppler did not reveal DVT BNP 900 Upon admission to the hospital patient has BiPAP was assessed and appeared to be functioning. Her respiratory status was at baseline. She was demanding to be discharged home. Discussed with her the need to follow with pulmonary medicine. Physical Exam Narrative: EXAM NARRATIVE: female, who appears more than stated age, malnourished, cachectic appearance On O2 via nasal cannula She is able to answer my questions appropriately S1, S2 regular rate and rhythm Soft abdomen, no signs of peritonitis, nontender EOMI, PERRLA GCS 15, no active neurological deficits Mild bilateral lower extremity edema Discharge Data Data Completed and Pending: Completed Studies During Hospitalization Category Date Time Status XR chest 1V wilda ble [id number] Urgent Exams 09/18/20 15:57 [place] [id number] Urgent Ultrasound 09/18/20 16:11 Completed Pending at discharge Category Date Time Status Urinalysis Stat Lab 09/18/20 15:57 Uncollected Labs from last 24 hours 09/19/20 09/19/20 09/19/20 10:44 07:22 06:15 WBC RBC Hgb Hct MCV MCH MCHC RDW Plt Count MPV Neut % (Auto) Lymph % (Auto) [place] % (Auto) Eos % (Auto) Baso % (Auto) Neut # (Auto) Lymph # (Auto) [place] # (Auto) Eos # (Auto) Baso # (Auto) Nucleated RBC % (a uto) Nucleated RBCs # D-Dimer Specimen Type Arterial Sample Site Radial, left ABG pH 7.48 H ABG pCO2 71.1 H* ABG pO2 67.0 L ABG HCO3 53.3 H ABG O2 Saturation ABG Base Excess 25.7 H Adrian Test Pos A-a O2 Gradient Hematocrit 34.7 L Hgb O2 Saturation Carboxyhemoglobin Methemoglobin Total Hemoglobin Ionized Calcium O2 Delivery Device Nc O2 Liters/Min 2.0 FiO2 28.0 Selling Specialist ID Ed Sodium Potassium Chloride Carbon Dioxide Anion Gap BUN Creatinine GFR Calculation Glucose POC Glucose 186 H 353 H Calculated Osmolal ity Calcium Total Bilirubin AST ALT Alkaline Phosphata se Troponin T Baselin e Troponin T 120 Min [place] Troponin T Troponin T Hi Sens 6Hr Troponin T Hi Sens 6Hr Delta NT-Pro-B Natriuret Pep Total Protein Albumin Globulin 09/19/20 09/19/20 09/18/20 05:16 05:16 23:34 WBC 5.4 RBC 4.01 L Hgb 11.2 L Hct 35.9 L MCV 89.5 MCH 27.9 L MCHC 31.2 RDW 13.1 Plt Count 165 MPV 10.7 H Neut % (Auto) 85.4 Lymph % (Auto) 10.9 [place] % (Auto) 3.3 Eos % (Auto) 0.0 Baso % (Auto) 0.0 Neut # (Auto) 4.64 Lymph # (Auto) 0.6 L [place] # (Auto) 0.2 Eos # (Auto) 0.0 Baso # (Auto) 0.0 Nucleated RBC % (a uto) 0 Nucleated RBCs # 0.0 D-Dimer Specimen Type Sample Site ABG pH ABG pCO2 ABG pO2 ABG HCO3 ABG O2 Saturation ABG Base Excess Adrian Test A-a O2 Gradient Hematocrit Hgb O2 Saturation Carboxyhemoglobin Methemoglobin Total Hemoglobin Ionized Calcium O2 Delivery Device O2 Liters/Min FiO2 Selling Specialist ID Sodium 134 L Potassium 4.2 Chloride 84 L Carbon Dioxide 49 H* Anion Gap 5.2 BUN 17 Creatinine 0.7 GFR Calculation 85.6 L Glucose 274 H POC Glucose Calculated Osmolal ity 289 Calcium 8.4 L Total Bilirubin AST ALT Alkaline Phosphata se Troponin T Baselin e Troponin T 120 Min [place] Troponin T Troponin T Hi Sens 6Hr 44.06 H Troponin T Hi Sens 6Hr Delta -19.94 L NT-Pro-B Natriuret Pep Total Protein Albumin Globulin 09/18/20 09/18/20 09/18/20 21:54 20:37 19:40 WBC RBC Hgb Hct MCV MCH MCHC RDW Plt Count MPV Neut % (Auto) Lymph % (Auto) [place] % (Auto) Eos % (Auto) Baso % (Auto) Neut # (Auto) Lymph # (Auto) [place] # (Auto) Eos # (Auto) Baso # (Auto) Nucleated RBC % (a uto) Nucleated RBCs # D-Dimer <= 0.27 Specimen Type Arterial Sample Site Brachial, right ABG pH 7.42 ABG pCO2 80.2 H* ABG pO2 55.7 L ABG HCO3 52.1 H ABG O2 Saturation 91.0 ABG Base Excess 22.9 H Adrian Test N/a A-a O2 Gradient 6.2 Hematocrit 38.4 Hgb O2 Saturation 88.3 L Carboxyhemoglobin 2.2 Methemoglobin 0.7 Total Hemoglobin 12.5 Ionized Calcium 1.2 O2 Delivery Device Bipap O2 Liters/Min FiO2 28.0 Selling Specialist ID Harkr Sodium 136.0 Potassium 4.4 Chloride Carbon Dioxide Anion Gap BUN Creatinine GFR Calculation Glucose 261.0 H POC Glucose 434 H Calculated Osmolal ity Calcium Total Bilirubin AST ALT Alkaline Phosphata se Troponin T Baselin e Troponin T 120 Min [place] Troponin T Troponin T Hi Sens 6Hr Troponin T Hi Sens 6Hr [place] NT-Pro-B Natriuret Pep Total Protein Albumin Globulin 09/18/20 09/18/20 09/18/20 19:11 17:15 17:15 WBC RBC Hgb Hct MCV MCH MCHC RDW Plt Count MPV Neut % (Auto) Lymph % (Auto) [place] % (Auto) Eos % (Auto) Baso % (Auto) Neut # (Auto) Lymph # (Auto) [place] # (Auto) Eos # (Auto) Baso # (Auto) Nucleated RBC % (a uto) Nucleated RBCs # D-Dimer Specimen Type Sample Site ABG pH ABG pCO2 ABG pO2 ABG HCO3 ABG O2 Saturation ABG Base Excess Adrian Test A-a O2 Gradient Hematocrit Hgb O2 Saturation Carboxyhemoglobin Methemoglobin Total Hemoglobin Ionized Calcium O2 Delivery Device O2 Liters/Min FiO2 Selling Specialist ID Sodium 136 Potassium 4.8 Chloride 87 L Carbon Dioxide 50 H* Anion Gap 3.8 L BUN 12 Creatinine 0.6 GFR Calculation 102.3 Glucose 174 H POC Glucose Calculated Osmolal ity 286 Calcium 8.5 Total Bilirubin 0.7 AST 21 ALT 22 Alkaline Phosphata se 53 Troponin T Baselin e 64 H Troponin T 120 Min [place] 52.63 H Delta Troponin T -11.37 L Troponin T Hi Sens 6Hr Troponin T Hi Sens 6Hr [place] NT-Pro-B Natriuret Pep 909 H Total Protein 5.0 L Albumin 3.6 Globulin 1.4 09/18/20 09/18/20 17:15 16:15 WBC 10.7 H RBC 4.46 Hgb 12.5 Hct 40.4 MCV 90.6 MCH 28.0 MCHC 30.9 RDW 13.2 Plt Count 186 MPV 9.7 Neut % (Auto) 89.6 Lymph % (Auto) 5.8 [place] % (Auto) 3.3 Eos % (Auto) 0.7 Baso % (Auto) 0.3 Neut # (Auto) 9.58 H Lymph # (Auto) 0.6 L [place] # (Auto) 0.4 Eos # (Auto) 0.1 Baso # (Auto) 0.0 Nucleated RBC % (a uto) 0 Nucleated RBCs # 0.0 D-Dimer Specimen Type Arterial Sample Site Brachial, left ABG pH 7.37 ABG pCO2 88.7 H* ABG pO2 88.2 ABG HCO3 51.1 H ABG O2 Saturation ABG Base Excess 21.2 H Adrian Test N/a A-a O2 Gradient Hematocrit 37.1 Hgb O2 Saturation 94.1 L Carboxyhemoglobin 2.5 Methemoglobin 0.9 Total Hemoglobin 12.1 Ionized Calcium O2 Delivery Device Nc O2 Liters/Min 3.0 FiO2 32.0 Selling Specialist ID Amh Sodium Potassium Chloride Carbon Dioxide Anion Gap BUN Creatinine GFR Calculation Glucose POC Glucose Calculated Osmolal ity Calcium Total Bilirubin AST ALT Alkaline Phosphata se Troponin T Baselin e Troponin T 120 Min [place] Troponin T Troponin T Hi Sens 6Hr Troponin T Hi Sens 6Hr [place] NT-Pro-B Natriuret Pep Total Protein Albumin Globulin Vitals: Last Vital Signs Temp 99.0 F 09/19/20 07:26 Pulse 115 H 09/19/20 08:47 Resp 17 09/19/20 08:40 BP 152/88 09/19/20 07:26 Pulse Ox 96 09/19/20 08:40 Discharge Plan Discharge Patient Disposition: Home Condition: Fair Prescriptions: Continued montelukast [Singulair] 10 mg tablet 10 mg PO DAILY RF: 0 albuterol sulfate [ProAir HFA] 90 mcg/actuation HFA aerosol inhaler 2 puff INHALATION Q4H PRN (Reason: Shortness Of Breath) RF: 0 Biktarvy 50-200-25 mg tablet 1 tab PO QAM RF: 0 furosemide [Lasix] 20 mg tablet 40 mg PO DAILY RF: 0 atorvastatin 40 mg Tablet 40 mg PO Q24H 30 Days Qty: 30 RF: 3 isosorbide mononitrate 30 mg Tablet Extended Release 24 Hr 30 mg PO DAILY 30 Days RF: 0 carvedilol 3.125 mg Tablet 3.125 mg PO BID 30 Days Qty: 60 RF: 0 clopidogrel [Plavix] 75 mg tablet 75 mg PO DAILY Qty: 30 RF: 0 aspirin 81 mg tablet,chewable 81 mg PO DAILY Qty: 30 RF: 3 Spiriva with HandiHaler 18 mcg Capsule, W/Inhalation Device 1 cap INHALATION DAILY RF: 0 budesonide-formoterol [Symbicort] 160-4.5 mcg/actuation Hfa Aerosol Inhaler 2 puff INHALATION BID RF: 0 ipratropium-albuterol 0.5 mg-3 mg(2.5 mg base)/3 mL Solution For Nebulization 3 ml INHALATION QID PRN (Reason: Shortness Of Breath) Qty: 180 RF: 0 (DME) glucometer See Rx Instructions .Route .MEDSUPPLY Qty: 1 RF: 0 insulin aspart U-100 [Novolog Flexpen U-100 Insulin] 100 unit/mL (3 mL) insulin pen See Rx Instructions .ROUTE .COMPLEX Qty: 15 RF: 0 sulfamethoxazole-trimethoprim 800-160 mg tablet See Rx Instructions .ROUTE .COMPLEX RF: 0 prednisone 5 mg Tablet 10 mg PO DAILY Qty: 60 RF: 0 [place] Capsules 1 cap PO TID RF: 0 Discharge Orders: Discharge Order (Routine); Ordered 09/19/20 Ordered By: Lin Bundy Referrals: Ta Salas MD [Primary Care Provider] - 4-7 days Yamilex Bearden MD [Physician] - 10/01/20 9:00 am Discharge Diet: Regular Discharge Activity: Increase activity as tolerated Patient Instructions: Opioid Safety Discharge Attestations Time Spent in Discharge Care*: greater than 30 min Specific Discharge Activities: educating patient, discussing with pcp/other providers, discussing with machine adjuster leader case trim/social workers/dc planners, documenting/other paperwork and evaluating patient/reviewing data Status at Discharge: Cognitive status at discharge: cognitively intact , Behavioral status at discharge: cooperative , Functional status at discharge: independent ambulation Overall status at discharge: patient is progressing back to baseline Quality Metrics Clinical Quality Measures During this hospital stay, did patient experience: None Coding Level of Care Code Acute Chg FW DC note Diagnoses Acute and chronic respiratory failure J96.20 Acute exacerbation of chronic obstructive airways disease J44.1 Protein-calorie malnutrition, moderate E44.0 BMI less than 19,adult Z68.1 Nicotine addiction F17.218 Nicotine product type: cigarettes Substance use status: other nicotine-induced disorder
--- NOTE | 2020-09-19 11:30 | PC.CHAP ---
Pastoral Care Encounter/Spiritual Assessment Type of Contact [] Declined kiln burner helper visit [] Patient/Family/Request visit [] Outpatient visit [] Follow-up visit [] Physician referral [] Code/Alert [] Routine visit [] Staff referral [] Actively dying [xxx] Patient sleeping [] Family support [] [] Out of room [] Palliative care [] [] Receiving care in room [] Pre-surgical visit [] Trauma [] Long length of stay [] ICU visit [] Other: Relational/Emotional Strength [] Patient feels connected with others/family/visitors/staff [] Distress [] Loneliness/isolation [] Abandonment Spirituality of Patient [] Person of Thea [] Attends Scientologist of their Thea [] Believes in Prayer [] Reads Bible or Mandaen materials [] There are Spiritual issues to be addressed Social Service Agency Director Interventions [] Prayer [] Active listening [] Non-anxious presence [] Spiritual/emotional support [] Crisis/trauma care [] Spiritual counseling [] Bereavement support [] Provided bereavement packet [] Provided Bible/devotional materials [] Provided toy/stuffed animal, coloring book to patient or family member [] Provided Communion [] Anointing/[place] [] Salvation [] Completed spiritual assessment [] Other: Impact on Illness or Injury [] Angry [] Fearful [] Anxious [] Often cries [] Exhaustion [] Unable to work [] Unable to attend adventism [] Unable to walk/stand [] Unable to read [] Unable to drive [] Unable to eat/drink [] Unable to sleep [] Unable to be with family [] Patient intubated [] Other: Summary Patient asleep beginning and end of kiln burner helper's visitation rounds. Follow up needed. Time spent with patient 1 minute
[2020-09-19] MEDS: BICTEGRAV EMTRICIT TENOFOV ALA 1 EACH PO (11:48)
--- NOTE | 2020-09-19 13:23 | PC.NURSE ---
patient verbalized understanding of discharge instructions. she was resistant to any new education about copd or smoking cessation, just repeating I know, I know. case management has set up ride for patient.
[2020-09-19 15:17] LABS: Estmated Average Glucose 146; Hemoglobin A1C 6.7 % (4.0-6.0)
[2020-09-19 17:08] LABS: Glucose Point of Care 292 mg/dL (70-110)
[2020-09-20 13:27] LABS: HIV RNA (CPY/ML) 1.69 (NOT DETECTED); HIV RNA LOG 49 copies/mL (NOT DETECTED)
== END 2020-09-19 18:30 | disposition home or self-care (01) ==
LOC: ER 19:41 → MEDSURG 19:59
PROVIDERS: Nurse Practitioner; Admitting Provider Internal Medicine; Emergency Provider Family Medicine; PCP Family Medicine; Visit Provider Hospitalist
DX: J96.20 Acute and chronic respiratory failure, unspecified whether with hypoxia or hypercapnia (principal); J44.1 Chronic obstructive pulmonary disease with (acute) exacerbation; Z86.718 Personal history of other venous thrombosis and embolism; E44.0 Moderate protein-calorie malnutrition; Z68.1 Body mass index [BMI] 19.9 or less, adult; F17.218 Nicotine dependence, cigarettes, with other nicotine-induced disorders; B20 Human immunodeficiency virus [HIV] disease; Z99.81 Dependence on supplemental oxygen; F17.210 Nicotine dependence, cigarettes, uncomplicated; Z91.14 Patient's other noncompliance with medication regimen
CPT/HCPCS: 36415; 36416; 36600; 71045; 80048; 80051; 80053; 82330; 82803; 82805; 82962; 83036; 83880; 84484; 85025; 85378; 86355; 86357; 86359; 86360; 87536; 93005; 93971; 94640; 94660; 96361; 96372; 96374; 96375; 99285; G0378; J1650; J1815; J1940; J2060; J2930

== ENCOUNTER 2020-10-02 13:10 | Inpatient (IN) | payer MEDICAID, SELFPAY ==
[2020-10-02] VITALS (36 sets, daily range): BP systolic 110–158; BP diastolic 72–103; PULSE 113–134; RESP 17–43; TEMP 36.6; O2SAT 94–100; BMI 20.7; BMI 16.0
--- NOTE | 2020-10-02 13:30 | ECG_ITS ---
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 Measurements Intervals [place] Rate: 129 P: 88 IN: 112 QRS: 85 QRSD: 82 T: 74 QT: 265 QTc: 388 Interpretive Statements SINUS TACHYCARDIA WITH SHORT IN INTERVAL ABNORMAL RHYTHM ECG Compared to ECG 09/18/2020 18:14:11 Short IN interval now present Atrial abnormality no longer present ST (T wave) deviation no longer present Electronically Signed On 10-03-2020 6:14:15 CDT by Marianna Guadalupe M.D. [id number]
--- NOTE | 2020-10-02 13:30 | XR_ITS ---
WS: [id number] Portable AP supine chest, 10/02/2020 Clinical Data: dyspnea/cough Comparison: Portable chest, 09/18/2020. Findings: No nodules, masses or effusions are seen. The heart is normal. The pulmonary vascularity is not increased. No pneumonia or pneumothorax is seen. The diaphragms are flattened. There are monitor leads on the chest wall. XR/XR chest 1V portable [id number] Impression: Hyperinflation.
--- NOTE | 2020-10-02 13:45 | W.ED.SOB ---
HPI - SOB/Dyspnea General: Chief Complaint: Altered Mental Status Stated Complaint: AMS/ CHF/ DYSPNEA Time Seen by Provider: 10/02/20 13:11 History of Present Illness: HPI Narrative: 60-year-old female with a history of COPD presents emergency room with altered mental status and shortness of breath found by homemade today confused. She has some swelling. She denies chest or abdominal pain. Has baseline semiproductive cough with no acute change. MD elicited complaint: shortness of breath and cough Pertinent past history: COPD Onset (ago): day(s) Timing: constant Exacerbating factors: nothing Relieving factors: nothing Known history of: COPD Associated symptoms: Deny abdominal pain, chest congestion, chest pain, cough, diaphoresis, dizziness, extremity pain, fever(s), hemoptysis, lightheadedness, myalgias, nausea, orthopnea, palpitations, paresthesias, polydipsia, polyuria, rash, sense of impending doom, syncope or vomiting Treatment prior to arrival: none Review of Systems Const: Denies: fever(s) or diaphoresis ENMT: Denies: throat pain, ear or mastoid pain, nasal discharge or nasal congestion Card: Denies: chest pain, palpitations, lightheadedness, syncope or orthopnea Resp: Denies: hemoptysis or chest congestion GI: Denies: abdominal pain, nausea or vomiting : Denies: flank pain, difficulty voiding, dysuria, urinary frequency or urinary urgency Musc: Denies: extremity pain Skin/Breast: Denies: rash or pruritus Neuro: Denies: dizziness Endo: Denies: polyuria or polydipsia PFSH ED PFSH: Medical History Acute exacerbation of chronic obstructive airways disease Acute on chronic respiratory failure with hypoxia and hypercapnia Chest pain CHF (congestive heart failure) Ejection fraction 57% on echocardiogram done 05/15/2020 Chronic respiratory failure with hypoxia and hypercapnia Chronic steroid use Congestive heart failure COPD (chronic obstructive pulmonary disease) Edema of left lower extremity GERD (gastroesophageal reflux disease) HIV (human immunodeficiency virus infection) Nicotine addiction NSTEMI (non-ST elevated myocardial infarction) Protein calorie malnutrition Sinus tachycardia Troponin level elevated Surgical History H/O laparoscopy History of History of hysterectomy Family History Mother COPD (chronic obstructive pulmonary disease) Father CAD (coronary artery disease) Social History Smoking and tobacco status: current every day smoker cigarettes Years cigarettes smoked: 50 [ Other cigarette details: Hx of 1 PPD x 15 Years ] Second hand smoke exposure: Yes Alcohol intake: current Alcohol intake frequency: holidays/special occasions only Lives independently: Yes Household members: none Marital status: / Current occupational status: disabled History of recent travel: No Current gender identity: Female Female Reproductive History: Date of last menstrual period: 06/27/20 Physical Exam Const: COMMON NORMALS: no acute distress GENERAL APPEARANCE: cooperative HENMT: COMMON NORMALS: normocephalic, atraumatic, hearing grossly normal bilaterally and external ears normal HEAD & SCALP: normocephalic and atraumatic EXTERNAL EAR: Yes external ears normal Neck/C-Spine: COMMON NORMALS: no JVD Resp: COMMON NORMALS: No retractions and No use of accessory muscles EFFORT & INSPECTION: Yes tachypneic AUSCULTATION: rhonchi and wheezes Cardio: COMMON NORMALS: no JVD, regular rate, regular rhythm and No murmurs present (Cardio) RATE: regular rate RHYTHM: regular rhythm GI: COMMON NORMALS: Soft to palpation and No hepatosplenomegaly present AUSCULTATION: Yes normoactive bowel sounds PALPATION: Yes Soft to palpation, No Tenderness to palpation present (GI), No Guarding due to palpation present (GI) and Yes No hepatosplenomegaly present Extremity: COMMON NORMALS: normal to inspection, capillary refill normal, no clubbing, cyanosis or edema, no calf tenderness and no pedal edema Skin: COMMON NORMALS: no rashes or lesions noted GENERAL SKIN EXAM: no rashes or lesions noted Course Vital Signs: Vital signs: Vital Signs Temperature 97.9 F 10/02/20 13:22 Pulse Rate 123 H 10/02/20 15:32 Respiratory Rate 29 H 10/02/20 15:32 Blood Pressure 138/91 10/02/20 15:32 Pulse Oximetry 96 10/02/20 15:32 MDM - SOB/Dyspnea MDM Narrative: Medical decision making narrative: Patient hypercapnic respiratory failure improved somewhat clinically and on her blood gases after an hour on the BiPAP we will go ahead and admit her. Her potassium on her blood gases was normal but her serum it was 5.8 I do not believe that is accurate I think she has some degree of hemolysis. We will go ahead and repeat it continue her on her BiPAP I am not going to add any antibiotics as her chest x-ray looks clear discussed with hospitalist orders are written Lab Data: Labs: Lab Results 10/02/20 10/02/20 10/02/20 Range/Units 13:38 15:19 15:19 WBC 6.3 (4.0-10.0) 10^3/ uL RBC 4.12 (4.1-5.3) 10^6/u L Hgb 11.7 (11.5-15.3) g/dL Hct 38.5 (37.0-47.0) % MCV 93.4 (81-99) fL MCH 28.4 (28.0-34.0) pg MCHC 30.4 (30.0-36.0) g/dL RDW 13.6 (12.1-15.1) % Plt Count 181 (130-400) 10^3/c mm MPV 10.2 (7.4-10.4) fL Neut % (Auto) 78.7 % Lymph % (Auto) 10.0 % [place] % (Auto) 9.8 % Eos % (Auto) 0.2 % Baso % (Auto) 0.8 % Neut # (Auto) 4.96 (1.8-7.7) 10^3/u L Lymph # (Auto) 0.6 L (0.8-4.8) 10^3/u L [place] # (Auto) 0.6 (0.2-0.9) 10^3/u L Eos # (Auto) 0.0 (0.0-0.8) 10^3/u L Baso # (Auto) 0.1 (0.0-0.1) 10^3/u L Nucleated RBC % (a uto) 0 % Nucleated RBCs # 0.0 /100WBC Specimen Type Arterial Sample Site Radial, right ABG pH 7.31 L (7.35-7.45) ABG pCO2 97.5 H* (35-45) mmHg ABG pO2 66.9 L (80.0-100.0) mmH g ABG HCO3 49.5 H (22-26) mmol/L ABG O2 Saturation 94.2 ABG Base Excess 18.8 H (-2.0-2.0) mmol/ L Adrian Test Pos A-a O2 Gradient 5.9 (5-10) mmHg Hematocrit 36.3 L (37-47) % Hgb O2 Saturation 92.0 L (95-100) % Carboxyhemoglobin 1.6 (0.4-20.1) %THgb Methemoglobin 0.8 (0.4-1.5) % Total Hemoglobin 11.8 L (12-16) g/dL Sodium 135.0 (131-143) mmol/L Potassium 4.8 (3.5-5.0) mmol/L Glucose 196.0 H (70-115) mg/dL Ionized Calcium 1.3 (1.1-1.4) mmol/L O2 Delivery Device Nc O2 Liters/Min 3.0 % FiO2 32.0 % Tidal Volume Taxi Dancer ID Ed Chloride (98-107) mmol/L Carbon Dioxide (22-29) mmol/L Anion Gap (5-19) BUN (6-20) mg/dL Creatinine (0.5-0.9) mg/dL GFR Calculation (90-130) mL/min Calculated Osmolal ity (285-295) mOsm/k g Lactic Acid 2.4 H (0.5-2.2) mmol/L Calcium (8.5-10.5) mg/dL Total Bilirubin (0.15-1.2) mg/dL AST (0-32) U/L ALT (0-33) U/L Alkaline Phosphata se (35-105) IU/L Total Protein (6.6-8.7) g/dL Albumin (3.5-5.2) g/dL Globulin (1.3-4.6) g/dL 10/02/20 10/02/20 Range/Units 15:19 15:29 WBC (4.0-10.0) 10^3/ uL RBC (4.1-5.3) 10^6/u L Hgb (11.5-15.3) g/dL Hct (37.0-47.0) % MCV (81-99) fL MCH (28.0-34.0) pg MCHC (30.0-36.0) g/dL RDW (12.1-15.1) % Plt Count (130-400) 10^3/c mm MPV (7.4-10.4) fL Neut % (Auto) % Lymph % (Auto) % [place] % (Auto) % Eos % (Auto) % Baso % (Auto) % Neut # (Auto) (1.8-7.7) 10^3/u L Lymph # (Auto) (0.8-4.8) 10^3/u L [place] # (Auto) (0.2-0.9) 10^3/u L Eos # (Auto) (0.0-0.8) 10^3/u L Baso # (Auto) (0.0-0.1) 10^3/u L Nucleated RBC % (a uto) % Nucleated RBCs # /100WBC Specimen Type Arterial Sample Site Radial, left ABG pH 7.38 (7.35-7.45) ABG pCO2 89.5 H* (35-45) mmHg ABG pO2 55.0 L (80.0-100.0) mmH g ABG HCO3 53.0 H (22-26) mmol/L ABG O2 Saturation 90.8 ABG Base Excess 23.2 H (-2.0-2.0) mmol/ L Adrian Test Pos A-a O2 Gradient 4.9 L (5-10) mmHg Hematocrit 35.7 L (37-47) % Hgb O2 Saturation 88.6 L (95-100) % Carboxyhemoglobin 1.7 (0.4-20.1) %THgb Methemoglobin 0.8 (0.4-1.5) % Total Hemoglobin 11.6 L (12-16) g/dL Sodium 136 134.0 (131-143) mmol/L Potassium 5.8 H 4.9 (3.5-5.0) mmol/L Glucose 145 H 142.0 H (70-115) mg/dL Ionized Calcium 1.3 (1.1-1.4) mmol/L O2 Delivery Device Bipap O2 Liters/Min % FiO2 28.0 % Tidal Volume 0.40 Taxi Dancer ID Ed Chloride 87 L (98-107) mmol/L Carbon Dioxide 48 H* (22-29) mmol/L Anion Gap 6.8 (5-19) BUN 18 (6-20) mg/dL Creatinine 0.5 (0.5-0.9) mg/dL GFR Calculation 126.3 (90-130) mL/min Calculated Osmolal ity 286 (285-295) mOsm/k g Lactic Acid (0.5-2.2) mmol/L Calcium 9.2 (8.5-10.5) mg/dL Total Bilirubin 0.5 (0.15-1.2) mg/dL AST 21 (0-32) U/L ALT 21 (0-33) U/L Alkaline Phosphata se 68 (35-105) IU/L Total Protein 5.4 L (6.6-8.7) g/dL Albumin 3.3 L (3.5-5.2) g/dL Globulin 2.1 (1.3-4.6) g/dL Discharge Plan Discharge Patient Disposition: Admitted As Inpatient Clinical Impression: Acute exacerbation of chronic obstructive airways disease, Pre-diabetes, Protein-calorie malnutrition, moderate, BMI less than 19,adult Condition: Stable Coding Level of Care Code ED Guard Dance Hall for Chg Fwd Exam Comprehensive
[2020-10-02 13:48] LABS: ABG PH Result 7.31 (7.35-7.45); Arterial Blood Gas Hematocrit 36.3 % (37-47); Base Excess ABG 18.8 mmol/L (-2.0-2.0); Blood Gas Allen Test Pos; Blood Gas Sample Type Arterial; Carboxyhemoglobin 1.6 %THgb (0.4-20.1); HCO3 ABG 49.5 mmol/L (22-26); Ionized Calcium Level - ABG 1.3 mmol/L (1.1-1.4); Methemoglobin 0.8 % (0.4-1.5); Oxygen Saturation ABG 94.2; PO2 ABG 66.9 mmHg (80.0-100.0); Potassium Level - ABG 4.8 mmol/L (3.5-5.0); Total Hemoglobin 11.8 g/dL (12-16)
[2020-10-02 13:49] LABS: Alveolar-Arterial Oxygen Gradi 5.9 mmHg (5-10); Blood Gas Operator Identificat ED; Blood Gas Sample Site Radial, right; Oxygen Device NC
--- NOTE | 2020-10-02 15:24 | PC.PHAR ---
PT IS UNABLE TO CONFIRM MEDICATIONS. I CALLED A FAMILY MEMBER WHO STATED THAT THE PT WOULD NOT LET THEM HELP HER WITH HER MEDICATIONS. THE FAMILY MEMBER TOLD ME THAT SHE HAD [facility]. I CALLED [facility] AND THE STATED THAT THE PT WAS FIRED FROM THEIR CARE FOR NON COMPLIANCE. I AM GOING TO USE HER MEDICATION HISTORY AND PHARMACY LIST TO FINISH HER MEDICATIONS.
[2020-10-02 15:28] LABS: Basophils # 0.1 10^3/uL (0.0-0.1); Basophils % 0.8 %; Eosinophils % 0.2 %; Hematocrit 38.5 % (37.0-47.0); Hemoglobin 11.7 g/dL (11.5-15.3); Lymphocytes # 0.6 10^3/uL (0.8-4.8); Mean Corpuscular HGB Conc 30.4 g/dL (30.0-36.0); Mean Corpuscular Hemoglobin 28.4 pg (28.0-34.0); Mean Corpuscular Volume 93.4 fL (81-99); Mean Platelet Volume 10.2 fL (7.4-10.4); Monocytes # 0.6 10^3/uL (0.2-0.9); Monocytes % 9.8 %; Neutrophils # 4.96 10^3/uL (1.8-7.7); Neutrophils % 78.7 %; Nucleated Red Blood Cells % 0 %; Platelet Count 181 10^3/cmm (130-400); Red Blood Count 4.12 10^6/uL (4.1-5.3); Red Cell Distribution Width 13.6 % (12.1-15.1); White Blood Count 6.3 10^3/uL (4.0-10.0)
[2020-10-02 15:38] LABS: ABG PH Result 7.38 (7.35-7.45); Arterial Blood Gas Hematocrit 35.7 % (37-47); Base Excess ABG 23.2 mmol/L (-2.0-2.0); Blood Gas Allen Test Pos; Blood Gas Sample Type Arterial; Carboxyhemoglobin 1.7 %THgb (0.4-20.1); HGB O2 Sat 88.6 % (95-100); Ionized Calcium Level - ABG 1.3 mmol/L (1.1-1.4); Methemoglobin 0.8 % (0.4-1.5); Oxygen Saturation ABG 90.8; Potassium Level - ABG 4.9 mmol/L (3.5-5.0); Total Hemoglobin 11.6 g/dL (12-16)
[2020-10-02 15:39] LABS: Alveolar-Arterial Oxygen Gradi 4.9 mmHg (5-10); Blood Gas Operator Identificat ED; Blood Gas Sample Site Radial, left; Oxygen Device BIPAP
[2020-10-02 15:40] LABS: ABG PCO2 89.5 mmHg (35-45)
[2020-10-02 15:40] LABS: ABG PCO2 97.5 mmHg (35-45)
[2020-10-02 15:43] LABS: Alanine Aminotransferase 21 U/L (0-33); Albumin Level 3.3 g/dL (3.5-5.2); Alkaline Phosphatase 68 IU/L (35-105); Anion Gap 6.8 (5-19); Aspartate Amino Transferase 21 U/L (0-32); Blood Urea Nitrogen 18 mg/dL (6-20); Calcium 9.2 mg/dL (8.5-10.5); Chloride 87 mmol/L (98-107); Globulin 2.1 g/dL (1.3-4.6); Glomerular Filtration Rate 126.3 mL/min (90-130); Glucose 145 mg/dL (65-115); Lactic Sepsis W/Reflex 2.4 mmol/L (0.5-2.2); Osmolality Calculated 286 mOsm/kg (285-295); Potassium 5.8 mmol/L (3.5-5.1); Sodium 136 mmol/L (136-145); Total Bilirubin 0.5 mg/dL (0.15-1.2); Total Protein 5.4 g/dL (6.6-8.7)
[2020-10-02 15:58] LABS: Add Urine Microscopic? NO; Charge for UA Resulting for Rev
[2020-10-02 16:01] LABS: Carbon Dioxide 48 mmol/L (22-29)
[2020-10-02 16:26] LABS: Urine Appearance Clear (CLEAR); Urine Color Yellow (Yellow); pH Urine 5 (5-7)
[2020-10-02 16:27] LABS: Bilirubin Urine Neg (Negative); Blood Urine Neg (Negative); Glucose Urine UA Norm (Normal); Ketones Urine 1+ (Negative); Leukocyte Esterase Urine Negative (Negative); Nitrate Urine Negative (Negative); Protein Urine Neg (Negative); Urobilinogen Urine Norm (Negative)
[2020-10-02 17:04] LABS: INR 0.89 (0.8-1.2)
[2020-10-02 17:05] LABS: Partial Thromboplastin Time 25.3 SECONDS (23.9-36.7)
[2020-10-02 17:07] LABS: Ammonia 29 umol/L (11-51); Potassium 5.1 mmol/L (3.5-5.1)
[2020-10-02 17:11] LABS: Reflex Lactate Order REFLEX LACTIC ORDERD
--- NOTE | 2020-10-02 17:29 | ECG_ITS ---
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 Measurements Intervals [place] Rate: 116 P: 87 MN: 130 QRS: 85 QRSD: 81 T: 75 QT: 280 QTc: 390 Interpretive Statements SINUS TACHYCARDIA RIGHT ATRIAL ENLARGEMENT [0.3mV P WAVE] LEFT ATRIAL ENLARGEMENT [-0.15mV P WAVE IN V1/V2] Compared to ECG 10/02/2020 13:52:54 Atrial abnormality now present Short MN interval no longer present Electronically Signed On 10-03-2020 6:12:26 CDT by Marianna Guadalupe M.D. [id number]
--- NOTE | 2020-10-02 17:33 | P.HP_ITS ---
Providers/Chief Complaint Primary Care Provider: Ta Salas MD Chief Complaint: AMS/ CHF/ DYSPNEA History of Present Illness 59 year old with past medical history of medical noncompliance, HIV on Biktarvy, chronic hypoxemic,hypercapnic respiratory failure due to obstructive lung disease on 2-3L of o2 via NC and trilogy,NSTEMI, HFpEF, came in with chief complaint of shortness of breath, was found confused by her homemade. Upon arr ival in the ER she was worked up for above-mentioned complaint. Imaging studies: X-ray chest: No acute infiltrate, hyperinflated lung duarte in line with longstanding COPD. ABG: pH:7.31, PCO2:97, PO2:66, FiO2 of 30% Pertinent labs: CBC is grossly normal, BUN/creatinine is normal, serum sodium potassium is normal, serum bicarb is high in line with chronic hypercapnic respiratory failure. Lactic acid 2.4. Baseline troponin 54 2-hour 2. Troponin : 54: No significant 2-hour delta, proBNP is elevated at:1443. She was placed on AVAPS in the ER: Review of Systems GI: Denies: abdominal pain, nausea, vomiting, diarrhea or constipation : Denies: flank pain Musc: Denies: back pain or extremity pain Neuro: Denies: headache(s), difficulty walking or confusion Medications/Allergies Home Medications Medication Instructions Recorded Confirmed Last Taken Type albuterol sulfate 90 mcg/actuation 2 puff INHALATION Q4H PRN 10/03/19 10/02/20 Unknown History aerosol inhaler montelukast 10 mg tablet 10 mg PO DAILY 10/03/19 10/02/20 08/28/20 History Biktarvy 1 tab PO DAILY 04/23/20 10/02/20 09/18/20 History Spiriva with HandiHaler 1 cap INHALATION DAILY 05/05/20 10/02/20 09/18/20 History budesonide-formoterol [Symbicort] 2 puff INHALATION BID 05/05/20 10/02/20 Unknown History ipratropium-albuterol 3 ml INHALATION QID PRN #180 ml 05/16/20 10/02/20 Unknown Rx glucometer #1 ea 06/16/20 10/02/20 Unknown Rx insulin aspart U-100 [Novolog See Rx Instructions .ROUTE 06/16/20 10/02/20 09/18/20 13:00 Rx Flexpen U-100 Insulin] .COMPLEX #15 ml 4 UNITS sulfamethoxazole-trimethoprim See Rx Instructions .ROUTE .COMPLEX 08/06/20 10/02/20 08/27/20 History prednisone 10 mg PO DAILY #60 tab 08/08/20 10/02/20 09/18/20 Rx furosemide [Lasix] 40 mg PO DAILY 08/29/20 10/02/20 08/28/20 History aspirin 81 mg PO DAILY #30 tab 09/03/20 10/02/20 Unknown Rx atorvastatin 40 mg PO Q24H 30 Days #30 tab 09/03/20 10/02/20 Unknown Rx carvedilol 3.125 mg PO BID 30 Days #60 tab 09/03/20 10/02/20 Unknown Rx clopidogrel [Plavix] 75 mg PO DAILY #30 tab 09/03/20 10/02/20 Unknown Rx isosorbide mononitrate 30 mg PO DAILY 30 Days tab 09/03/20 10/02/20 Unknown Rx [place] Shevlin Capsules 1 cap PO TID 09/18/20 10/02/20 Unknown History Allergies Allergy/AdvReac Type Severity Reaction Status Date / Time Penicillins Allergy ALGY-Difficulty Verified 09/18/20 17:34 Breathing phenobarbital Allergy ALGY-Hives Verified 09/18/20 17:34 Tetanus Vaccines and Toxoid Allergy ALGY-Hives Verified 09/18/20 17:34 PFSH Acute PFSH: Medical History Acute exacerbation of chronic obstructive airways disease Acute on chronic respiratory failure with hypoxia and hypercapnia Chest pain CHF (congestive heart failure) Ejection fraction 57% on echocardiogram done 05/15/2020 Chronic respiratory failure with hypoxia and hypercapnia Chronic steroid use Congestive heart failure COPD (chronic obstructive pulmonary disease) Edema of left lower extremity GERD (gastroesophageal reflux disease) HIV (human immunodeficiency virus infection) Nicotine addiction NSTEMI (non-ST elevated myocardial infarction) Protein calorie malnutrition Sinus tachycardia Troponin level elevated Surgical History H/O laparoscopy History of History of hysterectomy Family History Mother COPD (chronic obstructive pulmonary disease) Father CAD (coronary artery disease) Social History Smoking and tobacco status: current every day smoker cigarettes Years cigarettes smoked: 50 [ Other cigarette details: Hx of 1 PPD x 15 Years ] Second hand smoke exposure: Yes Alcohol intake: current Alcohol intake frequency: holidays/special occasions only Lives independently: Yes Household members: none Marital status: / Current occupational status: disabled History of recent travel: No Current gender identity: Female Female Reproductive History: Date of last menstrual period: 06/27/20 Vitals/I&O/Wt Last Vital Signs Temp 97.9 F 10/02/20 13:22 Pulse 123 H 10/02/20 15:32 Resp 29 H 10/02/20 15:32 BP 138/91 10/02/20 15:32 Pulse Ox 96 10/02/20 15:32 Weight last 48 hrs Weight 49.895 kg Physical Exam HENMT: COMMON NORMALS: normocephalic, atraumatic and external ears normal HEAD & SCALP: normocephalic and atraumatic OTHER: Facial swelling noted Resp: OTHER: Diminished air entry bilaterally, with coarse breath sounds and minimal wheezing. Cardio: COMMON NORMALS: regular rate, regular rhythm, S1 normal heart sound present, S2 normal heart sound present, No gallops present (Cardio), No murmurs present (Cardio), No rub (Cardio) and Peripheral pulses 2+ throughout RATE: regular rate RHYTHM: regular rhythm HEART SOUNDS: S1 normal heart sound present and S2 normal heart sound present PERIPHERAL PULSES: Peripheral pulses 2+ throughout GI: COMMON NORMALS: Normal to inspection, nondistended, normoactive bowel sounds present, Soft to palpation, non-tender, No hepatosplenomegaly present and no masses AUSCULTATION: Yes normoactive bowel sounds PALPATION: Yes Soft to palpation and Yes No hepatosplenomegaly present RECTAL EXAM: deferred Extremity: NARRATIVE EXTREMITY EXAM: Bilateral lower extremity 2+ pitting edema present. Neuro: COMMON NORMALS: patient oriented x3 Data : 10/02/20 15:19 10/02/20 16:42 Micro: Microbiology 10/02/20 15:26 Blood Culture - Preliminary Blood SPECIMEN COLLECTED 10/02/20 15:19 Blood Culture - Preliminary Blood SPECIMEN COLLECTED A&P Assessment and plan (1) Decompensated heart failure: Decompensated heart failure with preserved ejection fraction. Lasix 40 mg IV twice daily. Carvedilol 3.125 mg p.o. every 12 hours Monitor intake output Daily weight k>4,Mg>2 Fluid restriction to 1500 cc Status: Acute (2) Acute and chronic respiratory failure: Acute on chronic hypoxic hypercapnic respiratory failure: Secondary to his decompensated heart failure and COPD exacerbation: Solu-Medrol 60 mg IV every 12 hours daily Serial ABG X-ray chest Low threshold for intubation DuBeto AVAPS Status: Acute (3) Acute exacerbation of chronic obstructive airways disease: Acute on chronic COPD exacerbation likely secondary to medication noncompliance. Status: Acute Attestations Medical Necessity Statement*: Patient needs to be in the hospital for the management of decompensated heart failure. Anticipated length of stay greater than 2 midnights. Time Spent in Patient Care: Greater than 35 minutes (>than 50% of time spent in counselling and/or direct pt care on unit) . Critical Care Time: The high probability of a clinically significant, sudden or life threatening deterioration of the patient's [] system(s) required my full and direct attention, intervention and personal management. The critical care time is as shown. This time is in addition to time spent performing any reported procedures but includes the following: [x] Data and vital sign review and interpretation [x] Patient assessment, examination and intervention [x] Documentation [x] Medication orders and management Coding Level of Care Code Acute Military Technician for [facility] Jayla Diagnoses Decompensated heart failure I50.9 Acute and chronic respiratory failure J96.20 Acute exacerbation of chronic obstructive airways disease J44.1
[2020-10-02] MEDS: FUROsemide 10 mg/mL SDV 4mL 40 MG IVP (17:46)
[2020-10-02] MEDS: enoxaparin 40 mg/0.4 mL Syringe SUBCUT (17:47)
[2020-10-02 18:00] LABS: Troponin(5th) Baseline 54 ng/L (0-10)
[2020-10-02 18:24] LABS: NT Pro B Type Natriuretic Pept 1443 pg/mL (0-125)
[2020-10-02 19:00] LABS: Lactic Acid level (Lactate) 1.3 mmol/L (0.5-2.2); Troponin 5 2HR 54.18 ng/L (0-10); Troponin 5 2HR Delta 0.18 ABS# (0-10)
[2020-10-02] MEDS: cefTRIAXone 1,000 MG in sodium chloride 0.9% (plus) 50 ML 100 MG IV (20:04)
[2020-10-02 22:31] LABS: Glucose Point of Care 228 mg/dL (70-110)
[2020-10-02] MEDS: carvedilol 3.125 mg Tablet PO (22:34)
[2020-10-02] MEDS: atorvastatin 40 mg Tablet PO (22:35)
[2020-10-02] MEDS: ipratropium-albuterol 3 mL Neb INHALATION (23:24)
--- NOTE | 2020-10-02 23:29 | ECG_ITS ---
[facility] Test Date: 2020-10-02 Pat Name: Adore Broussard Department: Room: 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
[2020-10-03] VITALS (244 sets, daily range): BP systolic 109–156; BP diastolic 63–90; PULSE 102–136; RESP 19–47; TEMP 36.3–37.4; O2SAT 69–100
[2020-10-03] MEDS: ipratropium-albuterol 3 mL Neb INHALATION ×3 (04:11→20:13)
--- NOTE | 2020-10-03 04:35 | PC.NURSE ---
Called and spoke with galindo Croft, per Pt request. Notified her of Pt being in hospital with update.
[2020-10-03 04:49] LABS: ABG PH Result 7.46 (7.35-7.45); Alveolar-Arterial Oxygen Gradi 8.1 mmHg (5-10); Arterial Blood Gas Hematocrit 32.3 % (37-47); Base Excess ABG 28.2 mmol/L (-2.0-2.0); Blood Gas Sample Site Brachial, right; Blood Gas Sample Type Arterial; Carboxyhemoglobin 1.2 %THgb (0.4-20.1); HCO3 ABG 56.4 mmol/L (22-26); HGB O2 Sat 91.4 % (95-100); Ionized Calcium Level - ABG 1.2 mmol/L (1.1-1.4); Methemoglobin 0.4 % (0.4-1.5); Oxygen Device BIPAP; Oxygen Saturation ABG 92.9; PO2 ABG 57.5 mmHg (80.0-100.0); Potassium Level - ABG 4.5 mmol/L (3.5-5.0); Total Hemoglobin 10.5 g/dL (12-16)
[2020-10-03 09:08] LABS: Basophils % 0.5 %; Eosinophils % 0.5 %; Hematocrit 32.8 % (37.0-47.0); Hemoglobin 10.2 g/dL (11.5-15.3); Lymphocytes % 16.3 %; Mean Corpuscular HGB Conc 31.1 g/dL (30.0-36.0); Mean Corpuscular Hemoglobin 27.9 pg (28.0-34.0); Mean Corpuscular Volume 89.6 fL (81-99); Monocytes # 0.6 10^3/uL (0.2-0.9); Monocytes % 10.1 %; Neutrophils % 72.3 %; Nucleated Red Blood Cells % 0 %; Platelet Count 179 10^3/cmm (130-400); Red Blood Count 3.66 10^6/uL (4.1-5.3); Red Cell Distribution Width 13.4 % (12.1-15.1); White Blood Count 5.8 10^3/uL (4.0-10.0)
[2020-10-03 09:30] LABS: Alanine Aminotransferase 16 U/L (0-33); Albumin Level 2.9 g/dL (3.5-5.2); Alkaline Phosphatase 53 IU/L (35-105); Aspartate Amino Transferase 15 U/L (0-32); Blood Urea Nitrogen 16 mg/dL (6-20); Calcium 8.5 mg/dL (8.5-10.5); Chloride 86 mmol/L (98-107); Globulin 1.7 g/dL (1.3-4.6); Glomerular Filtration Rate 102.3 mL/min (90-130); Glucose 123 mg/dL (65-115); Magnesium 1.9 mg/dL (1.7-2.3); Osmolality Calculated 289 mOsm/kg (285-295); Potassium 4.5 mmol/L (3.5-5.1); Sodium 138 mmol/L (136-145); Total Bilirubin 0.4 mg/dL (0.15-1.2); Total Protein 4.6 g/dL (6.6-8.7)
[2020-10-03 09:38] LABS: NT Pro B Type Natriuretic Pept 1197 pg/mL (0-125); Procalcitonin 0.15 ng/mL (0-0.5)
[2020-10-03] MEDS: carvedilol 3.125 mg Tablet PO ×2 (09:46→20:13)
[2020-10-03] MEDS: isosorbide mononitrate ER 30 mg Tablet PO (09:47)
[2020-10-03] MEDS: clopidogrel 75 mg Tablet PO (09:47)
[2020-10-03] MEDS: FUROsemide 10 mg/mL SDV 4mL 40 MG IVP ×2 (09:48→17:34)
[2020-10-03] MEDS: aspirin 81 mg Chew Tablet PO (09:48)
[2020-10-03] MEDS: vancomycin 500 MG in sodium chloride 0.9% (100 ml) 100 ML 200 MG IV ×2 (09:59→21:15)
[2020-10-03 10:01] LABS: Anion Gap 6.5 (5-19); Carbon Dioxide > 50 mmol/L (22-29)
--- NOTE | 2020-10-03 10:18 | PM.PN ---
Subjective Subjective: Interval history: Patient was seen and examined this morning, good urine output with IV Lasix, total urine output since admission is 2 Ls, currently her shortness of breath has improved. Medications: Reviewed: Yes Vitals/I&O/Wt Last Vital Signs Temp 99.3 F 10/03/20 08:45 Pulse 124 H 10/03/20 10:05 Resp 34 H 10/03/20 10:05 BP 144/76 10/03/20 10:00 Pulse Ox 86 L 10/03/20 09:55 10/02/20 10/03/20 10/03/20 22:59 06:59 14:59 Intake Total 500 / 500 128 / 628 180 / 180 Output Total 325 / 325 Balance 500 / 500 -197 / 303 180 / 180 Weight last 48 hrs Weight 38.465 kg Weight 49.895 kg Physical Exam Const: COMMON NORMALS: patient oriented x3 HENMT: COMMON NORMALS: normocephalic, atraumatic and external ears normal HEAD & SCALP: normocephalic and atraumatic EXTERNAL EAR: Yes external ears normal OTHER: Facial swelling noted Resp: OTHER: Diminished air entry bilaterally, with coarse breath sounds and minimal wheezing. Cardio: COMMON NORMALS: regular rate, regular rhythm, S1 normal heart sound present, S2 normal heart sound present, No gallops present (Cardio), No murmurs present (Cardio), No rub (Cardio) and Peripheral pulses 2+ throughout RATE: regular rate RHYTHM: regular rhythm HEART SOUNDS: S1 normal heart sound present and S2 normal heart sound present PERIPHERAL PULSES: Peripheral pulses 2+ throughout GI: COMMON NORMALS: Normal to inspection, nondistended, normoactive bowel sounds present, Soft to palpation, non-tender, No hepatosplenomegaly present and no masses AUSCULTATION: Yes normoactive bowel sounds PALPATION: Yes Soft to palpation and Yes No hepatosplenomegaly present RECTAL EXAM: deferred Extremity: NARRATIVE EXTREMITY EXAM: Bilateral lower extremity 2+ pitting edema present. Neuro: COMMON NORMALS: patient oriented x3 Urinary Catheter Management^: Angulo: Cath Placed During This Visit: yes Reason for Continuing Indwelling Catheter: Accurate Measurement of Urinary Output in Critically Ill Patients Urinary Catheter Date of Insertion: 10/03/20 Urinary Catheter Time of Insertion: 23:45 Data : 10/03/20 08:58 10/03/20 08:58 Micro: Microbiology 10/02/20 15:26 Blood Culture - Preliminary Blood Gram positive cocci 10/02/20 18:32 Blood Culture - Preliminary Blood SPECIMEN COLLECTED 10/02/20 18:28 Blood Culture - Preliminary Blood SPECIMEN COLLECTED 10/02/20 15:19 Blood Culture - Preliminary Blood SPECIMEN COLLECTED A&P Assessment and plan (1) Decompensated heart failure: Decompensated heart failure with preserved ejection fraction.(Shortness of breath, bilateral lower extremity 3+ pitting edema, elevated proBNP) Lasix 40 mg IV twice daily. Carvedilol 3.125 mg p.o. every 12 hours Monitor intake output Daily weight k>4,Mg>2 Fluid restriction to 1500 cc Status: Acute (2) Acute and chronic respiratory failure: Acute on chronic hypoxic hypercapnic respiratory failure: Secondary to his decompensated heart failure and COPD exacerbation: Solu-Medrol 60 mg IV every 12 hours daily Serial ABG X-ray chest Low threshold for intubation DuoNebs AVAPS Status: Acute (3) Acute exacerbation of chronic obstructive airways disease: Acute COPD exacerbation likely secondary to medication noncompliance. Status: Acute Attestations Medical Necessity Statement*: Patient needs to be in hospital for management of decompensated heart failure. Coding Level of Care Code Acute Banker Mason for [facility] Diagnoses Decompensated heart failure I50.9 Acute and chronic respiratory failure J96.20 Acute exacerbation of chronic obstructive airways disease J44.1
[2020-10-03 10:29] LABS: Glucose Point of Care 142 mg/dL (70-110)
[2020-10-03 12:39] LABS: Glucose Point of Care 239 mg/dL (70-110)
--- NOTE | 2020-10-03 14:33 | PC.NURSE ---
Patient is stating she cannot breath and wants back on Bipap. CUrrently she is saturating in the mid 90's and does not appear to be in any distress. After being on the bipap for about 10 minutes, patient is uncomfortable and wants a smaller mask. Nurse informed patient that she has the smallest mask available and offered to help resposition the mask. Patient became very upset and started accusing the nurse of lying. Demanded to speak to the Respiratory staff. Nancy with RT went in to speak with the patient and informed her that she has the smallest mask available and she accused Nancy of lying too. Patient is becoming belligerent and demands a new nurse and states that she wants to leave because she can give herself bipap and home. Charge Nurse AGUSTIN went to speak to the patient.
--- NOTE | 2020-10-03 16:24 | PC.NURSE ---
Patient is leaving AMA. Charge NUrse BJ has spoken to the patient about the dangers of leaving AMA and that we recommend continuing her hospital stay. Pt continues to insist on leaving. Family member has been contacted and will be picking up the patient. Dr De León has been notified.
--- NOTE | 2020-10-03 16:33 | PC.NURSE ---
Dr De León has come and spoke to the patient. SHe has changed her mind and is no longer leaving [facility]. SHe is now accepting care from nurses. Will continue care as ordered.
[2020-10-03] MEDS: cefTRIAXone 1,000 MG in sodium chloride 0.9% (plus) 50 ML 100 MG IV (17:29)
[2020-10-03] MEDS: enoxaparin 40 mg/0.4 mL Syringe SUBCUT (17:31)
[2020-10-03 17:53] LABS: Glucose Point of Care 215 mg/dL (70-110)
[2020-10-03] MEDS: atorvastatin 40 mg Tablet PO (20:13)
[2020-10-03] MEDS: insulin glargine 100 units/1 mL 20 UNIT SUBCUT (20:58)
[2020-10-03 22:08] LABS: Glucose Point of Care 420 mg/dL (70-110)
[2020-10-04] VITALS (18 sets, daily range): BP systolic 131–164; BP diastolic 71–87; PULSE 108–126; RESP 16–22; TEMP 36.7–37.2; O2SAT 91–97
[2020-10-04] MEDS: ipratropium-albuterol 3 mL Neb INHALATION ×7 (03:39→23:33)
[2020-10-04 03:52] LABS: ABG PH Result 7.49 (7.35-7.45); Arterial Blood Gas Hematocrit 30.9 % (37-47); Base Excess ABG 28.3 mmol/L (-2.0-2.0); Blood Gas Sample Site Brachial, left; Blood Gas Sample Type Arterial; Carboxyhemoglobin 1.1 %THgb (0.4-20.1); HCO3 ABG 55.7 mmol/L (22-26); HGB O2 Sat 94.8 % (95-100); Ionized Calcium Level - ABG 1.1 mmol/L (1.1-1.4); Methemoglobin 0.8 % (0.4-1.5); Oxygen Saturation ABG 96.7; PO2 ABG 76.9 mmHg (80.0-100.0); Potassium Level - ABG 3.4 mmol/L (3.5-5.0); Total Hemoglobin 10.1 g/dL (12-16)
[2020-10-04 03:53] LABS: ABG PCO2 72.9 mmHg (35-45); Blood Gas LPM 3.5 %; Oxygen Device NC
[2020-10-04 06:31] LABS: Glucose Point of Care 291 mg/dL (70-110)
[2020-10-04 06:53] LABS: Basophils % 0.2 %; Hematocrit 32.9 % (37.0-47.0); Hemoglobin 10.4 g/dL (11.5-15.3); Lymphocytes # 0.7 10^3/uL (0.8-4.8); Lymphocytes % 14.3 %; Mean Corpuscular HGB Conc 31.6 g/dL (30.0-36.0); Mean Corpuscular Volume 88.4 fL (81-99); Mean Platelet Volume 10.6 fL (7.4-10.4); Monocytes # 0.4 10^3/uL (0.2-0.9); Monocytes % 7.3 %; Neutrophils # 3.73 10^3/uL (1.8-7.7); Neutrophils % 77.6 %; Nucleated Red Blood Cells % 0 %; Platelet Count 193 10^3/cmm (130-400); Red Blood Count 3.72 10^6/uL (4.1-5.3); Red Cell Distribution Width 13.3 % (12.1-15.1); White Blood Count 4.8 10^3/uL (4.0-10.0)
[2020-10-04 07:05] LABS: Alanine Aminotransferase 17 U/L (0-33); Albumin Level 3.2 g/dL (3.5-5.2); Alkaline Phosphatase 55 IU/L (35-105); Anion Gap 9.5 (5-19); Aspartate Amino Transferase 14 U/L (0-32); Blood Urea Nitrogen 15 mg/dL (6-20); Calcium 8.7 mg/dL (8.5-10.5); Chloride 79 mmol/L (98-107); Globulin 1.8 g/dL (1.3-4.6); Glomerular Filtration Rate 85.6 mL/min (90-130); Glucose 268 mg/dL (65-115); Osmolality Calculated 286 mOsm/kg (285-295); Potassium 3.5 mmol/L (3.5-5.1); Sodium 133 mmol/L (136-145); Total Bilirubin 0.4 mg/dL (0.15-1.2)
[2020-10-04 07:13] LABS: Carbon Dioxide 48 mmol/L (22-29)
[2020-10-04] MEDS: FUROsemide 10 mg/mL SDV 4mL 40 MG IVP (10:01)
[2020-10-04] MEDS: aspirin 81 mg Chew Tablet PO (10:02)
[2020-10-04] MEDS: acetaZOLAMIDE 250 mg Tablet 500 MG PO (10:02)
[2020-10-04] MEDS: carvedilol 3.125 mg Tablet PO ×2 (10:03→21:23)
[2020-10-04] MEDS: clopidogrel 75 mg Tablet PO (10:03)
[2020-10-04] MEDS: isosorbide mononitrate ER 30 mg Tablet PO (10:03)
[2020-10-04] MEDS: vancomycin 500 MG in sodium chloride 0.9% (plus) 100 ML 200 MG IV ×2 (11:13→23:17)
[2020-10-04 12:24] LABS: Glucose Point of Care 150 mg/dL (70-110)
--- NOTE | 2020-10-04 15:33 | P.PN_ITS ---
Subjective Subjective: Interval history: Patient was seen and examined this morning,currently SOB has improved a lot, B/L L/E swelling has resolved.Net 2Ls Negative. Medications: Reviewed: Yes Vitals/I&O/Wt Last Vital Signs Temp 98.8 F 10/04/20 12:00 Pulse 117 H 10/04/20 13:26 Resp 22 H 10/04/20 13:16 BP 145/87 10/04/20 12:00 Pulse Ox 97 10/04/20 13:16 10/04/20 10/04/20 10/04/20 06:59 14:59 22:59 Intake Total 300 / 1548 580 / 580 Output Total 900 / 4450 200 / 200 Balance -600 / -2902 380 / 380 Weight last 48 hrs Weight 38.465 kg Physical Exam Const: COMMON NORMALS: patient oriented x3 HENMT: COMMON NORMALS: normocephalic, atraumatic and external ears normal HEAD & SCALP: normocephalic and atraumatic EXTERNAL EAR: Yes external ears normal Resp: OTHER: Diminished air entry bilaterally, Cardio: COMMON NORMALS: regular rate, regular rhythm, S1 normal heart sound present, S2 normal heart sound present, No gallops present (Cardio), No murmurs present (Cardio), No rub (Cardio) and Peripheral pulses 2+ throughout RATE: regular rate RHYTHM: regular rhythm HEART SOUNDS: S1 normal heart sound present and S2 normal heart sound present PERIPHERAL PULSES: Peripheral pulses 2+ throughout GI: COMMON NORMALS: Normal to inspection, nondistended, normoactive bowel sounds present, Soft to palpation, non-tender, No hepatosplenomegaly present and no masses AUSCULTATION: Yes normoactive bowel sounds PALPATION: Yes Soft to palpation and Yes No hepatosplenomegaly present RECTAL EXAM: deferred Extremity: COMMON NORMALS: no pedal edema Neuro: COMMON NORMALS: patient oriented x3 Urinary Catheter Management^: Angulo: Cath Placed During This Visit: yes Reason for Continuing Indwelling Catheter: Accurate Measurement of Urinary Output in Critically Ill Patients Urinary Catheter Date of Insertion: 10/03/20 Urinary Catheter Time of Insertion: 23:45 Data : 10/04/20 05:50 10/04/20 05:50 Micro: Microbiology 10/02/20 15:26 Blood Culture - Preliminary Blood Coagulase negativ staphylococc 10/02/20 18:32 Blood Culture - Preliminary Blood NEGATIVE TO DATE 10/02/20 18:28 Blood Culture - Preliminary Blood NEGATIVE TO DATE 10/02/20 15:19 Blood Culture - Preliminary Blood NEGATIVE TO DATE A&P Assessment and plan (1) Decompensated heart failure: Decompensated heart failure with preserved ejection fraction.(Shortness of breath, bilateral lower extremity 3+ pitting edema, elevated proBNP) Lasix 40 mg IV daily. Carvedilol 3.125 mg p.o. every 12 hours Monitor intake output Daily weight k>4,Mg>2 Fluid restriction to 1500 cc Status: Acute (2) Acute and chronic respiratory failure: Acute on chronic hypoxic hypercapnic respiratory failure: Secondary to his decompensated heart failure and COPD exacerbation: Solu-Medrol 60 mg IV every 12 hours daily Serial ABG X-ray chest Low threshold for intubation Roxana PATEL Status: Acute (3) Acute exacerbation of chronic obstructive airways disease: Acute COPD exacerbation likely secondary to medication noncompliance. Status: Acute (4) Diabetes: Lantus 20 u bedtime LDSSI FSG Status: Acute Attestations Medical Necessity Statement*: Patient needs to be in hospital for the management of H/F, COPD Exacerbation Coding Level of Care Code Acute Customer Service And Sales Consultant for [facility] Fwd Diagnoses Decompensated heart failure I50.9 Acute and chronic respiratory failure J96.20 Acute exacerbation of chronic obstructive airways disease J44.1 Diabetes E11.9
[2020-10-04 17:15] LABS: Glucose Point of Care 319 mg/dL (70-110)
[2020-10-04] MEDS: enoxaparin 40 mg/0.4 mL Syringe SUBCUT (18:27)
[2020-10-04] MEDS: cefTRIAXone 1,000 MG in sodium chloride 0.9% (plus) 50 ML 100 MG IV (18:27)
[2020-10-04] MEDS: atorvastatin 40 mg Tablet PO (21:23)
[2020-10-04 21:29] LABS: Glucose Point of Care 411 mg/dL (70-110)
[2020-10-04] MEDS: insulin glargine 100 units/1 mL 20 UNIT SUBCUT (21:36)
[2020-10-04 22:33] LABS: Glucose Point of Care 253 mg/dL (70-110)
[2020-10-04 23:07] LABS: Vancomycin Trough 11.4 ug/mL (10-15)
[2020-10-05] VITALS (8 sets, daily range): BP systolic 125–149; BP diastolic 78–85; PULSE 100–119; RESP 14–20; TEMP 36.8–37.2; O2SAT 92–95
[2020-10-05] MEDS: ipratropium-albuterol 3 mL Neb INHALATION ×2 (03:06→08:48)
[2020-10-05 05:47] LABS: Hematocrit 31.9 % (37.0-47.0); Hemoglobin 10.5 g/dL (11.5-15.3); Lymphocytes # 0.6 10^3/uL (0.8-4.8); Lymphocytes % 10.4 %; Mean Corpuscular HGB Conc 32.9 g/dL (30.0-36.0); Mean Corpuscular Hemoglobin 28.5 pg (28.0-34.0); Mean Corpuscular Volume 86.7 fL (81-99); Mean Platelet Volume 10.4 fL (7.4-10.4); Monocytes # 0.3 10^3/uL (0.2-0.9); Monocytes % 4.8 %; Neutrophils # 4.79 10^3/uL (1.8-7.7); Neutrophils % 84.3 %; Nucleated Red Blood Cells % 0 %; Platelet Count 189 10^3/cmm (130-400); Red Blood Count 3.68 10^6/uL (4.1-5.3); Red Cell Distribution Width 13.6 % (12.1-15.1); White Blood Count 5.7 10^3/uL (4.0-10.0)
[2020-10-05] MEDS: acetaminophen 325 mg Tablet 650 MG PO (05:57)
[2020-10-05 06:12] LABS: Alanine Aminotransferase 16 U/L (0-33); Albumin Level 3.1 g/dL (3.5-5.2); Alkaline Phosphatase 49 IU/L (35-105); Anion Gap 10.4 (5-19); Aspartate Amino Transferase 13 U/L (0-32); Blood Urea Nitrogen 19 mg/dL (6-20); Calcium 8.5 mg/dL (8.5-10.5); Carbon Dioxide 38 mmol/L (22-29); Chloride 87 mmol/L (98-107); Globulin 1.8 g/dL (1.3-4.6); Glomerular Filtration Rate 73.4 mL/min (90-130); Glucose 297 mg/dL (65-115); Osmolality Calculated 287 mOsm/kg (285-295); Potassium 3.4 mmol/L (3.5-5.1); Sodium 132 mmol/L (136-145); Total Bilirubin 0.3 mg/dL (0.15-1.2); Total Protein 4.9 g/dL (6.6-8.7)
[2020-10-05 06:34] LABS: Glucose Point of Care 266 mg/dL (70-110)
[2020-10-05] MEDS: carvedilol 3.125 mg Tablet PO (08:24)
[2020-10-05] MEDS: clopidogrel 75 mg Tablet PO (08:24)
[2020-10-05] MEDS: isosorbide mononitrate ER 30 mg Tablet PO (08:24)
[2020-10-05] MEDS: aspirin 81 mg Chew Tablet PO (08:25)
--- NOTE | 2020-10-05 08:38 | P.DS_ITS ---
Discharge Providers Date of Admission: 10/02/20 16:07 Date of Discharge: October 05, 2020 Attending Provider at Admission: Sánchez De León MD Attending Provider at Discharge: Sánchez De León MD Primary Care Provider: Ta Salas MD Diagnoses at Discharge Discharge Diagnosis (1) Decompensated heart failure: (2) Acute and chronic respiratory failure: (3) Acute exacerbation of chronic obstructive airways disease: (4) Diabetes: Reason for Visit Reason for Visit: AMS/ CHF/ DYSPNEA Hospital Course Hospital Course 59 year old with past medical history of medical noncompliance, HIV on Biktarvy, chronic hypoxemic,hypercapnic respiratory failure due to obstructive lung disease on 2-3L of o2 via NC and trilogy,NSTEMI, HFpEF, came in with chief complaint of shortness of breath, was found confused by her homemade. Upon arrival in the ER she was worked up for above-mentioned complaint. Imaging studies: X-ray chest: No acute infiltrate, hyperinflated lung duarte in line with longstanding COPD. ABG: pH:7.31, PCO2:97, PO2:66, FiO2 of 30% . Pertinent labs: CBC is grossly normal, BUN/creatinine is normal, serum sodium potassium is normal, serum bicarb is high in line with chronic hypercapnic respiratory failure. Lactic acid 2.4. Baseline troponin 54 2-hour 2. Troponin : 54: No significant 2-hour delta, pr oBNP is elevated at:1443. 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 Physical Exam Const: COMMON NORMALS: patient oriented x3 HENMT: COMMON NORMALS: normocephalic, atraumatic and external ears normal HEAD & SCALP: normocephalic and atraumatic EXTERNAL EAR: Yes external ears normal Resp: OTHER: Diminished air entry bilaterally, Cardio: COMMON NORMALS: regular rate, regular rhythm, S1 normal heart sound present, S2 normal heart sound present, No gallops present (Cardio), No murmurs present (Cardio), No rub (Cardio) and Peripheral pulses 2+ throughout RATE: regular rate RHYTHM: regular rhythm HEART SOUNDS: S1 normal heart sound present and S2 normal heart sound present PERIPHERAL PULSES: Peripheral pulses 2+ throughout GI: COMMON NORMALS: Normal to inspection, nondistended, normoactive bowel sounds present, Soft to palpation, non-tender, No hepatosplenomegaly present and no masses AUSCULTATION: Yes normoactive bowel sounds PALPATION: Yes Soft to palpation and Yes No hepatosplenomegaly present RECTAL EXAM: deferred Extremity: COMMON NORMALS: no pedal edema Neuro: COMMON NORMALS: patient oriented x3 Urinary Catheter Management^: Angulo: Cath Placed During This Visit: yes, but has since been removed by the nurse Reason for Continuing Indwelling Catheter: Accurate Measurement of Urinary Output in Critically Ill Patients Urinary Catheter Date of Insertion: 10/03/20 Urinary Catheter Time of Insertion: 23:45 Date Urinary Catheter Removed: 10/04/20 Time Urinary Catheter Discontinued: 11:05 Discharge Data Data Completed and Pending: Completed Studies During Hospitalization Category Date Time Status XR chest 1V wilda ble [id number] Stat Exams 10/02/20 13:30 Completed Pending at discharge Category Date Time Status Arterial Blood Ga s Full AM LABS Lab 10/05/20 04:00 Ordered Blood Culture Rou patricia Lab 10/02/20 18:32 Results Blood Culture Sta t Lab 10/02/20 15:26 Results Labs from last 24 hours 10/05/20 10/05/20 10/05/20 06:30 05:32 05:32 WBC 5.7 RBC 3.68 L Hgb 10.5 L Hct 31.9 L MCV 86.7 MCH 28.5 MCHC 32.9 RDW 13.6 Plt Count 189 MPV 10.4 Neut % (Auto) 84.3 Lymph % (Auto) 10.4 [place] % (Auto) 4.8 Eos % (Auto) 0.0 Baso % (Auto) 0.0 Neut # (Auto) 4.79 Lymph # (Auto) 0.6 L [place] # (Auto) 0.3 Eos # (Auto) 0.0 Baso # (Auto) 0.0 Nucleated RBC % (a uto) 0 Nucleated RBCs # 0.0 Specimen Type Sample Site ABG pH ABG pCO2 ABG pO2 ABG HCO3 ABG O2 Saturation ABG Base Excess Adrian Test A-a O2 Gradient Hematocrit Hgb O2 Saturation Carboxyhemoglobin Methemoglobin Total Hemoglobin Sodium 132 L Potassium 3.4 L Glucose 297 H Ionized Calcium O2 Delivery Device O2 Liters/Min Stereo Equipment Installer ID Chloride 87 L Carbon Dioxide 38 H Anion Gap 10.4 BUN 19 Creatinine 0.8 GFR Calculation 73.4 L POC Glucose 266 H Calculated Osmolal ity 287 Calcium 8.5 Total Bilirubin 0.3 AST 13 ALT 16 Alkaline Phosphata se 49 Total Protein 4.9 L Albumin 3.1 L Globulin 1.8 Vancomycin Trough 10/04/20 10/04/20 10/04/20 22:29 22:26 21:14 WBC RBC Hgb Hct MCV MCH MCHC RDW Plt Count MPV Neut % (Auto) Lymph % (Auto) [place] % (Auto) Eos % (Auto) Baso % (Auto) Neut # (Auto) Lymph # (Auto) [place] # (Auto) Eos # (Auto) Baso # (Auto) Nucleated RBC % (a uto) Nucleated RBCs # Specimen Type Sample Site ABG pH ABG pCO2 ABG pO2 ABG HCO3 ABG O2 Saturation ABG Base Excess Adrian Test A-a O2 Gradient Hematocrit Hgb O2 Saturation Carboxyhemoglobin Methemoglobin Total Hemoglobin Sodium Potassium Glucose Ionized Calcium O2 Delivery Device O2 Liters/Min Stereo Equipment Installer ID Chloride Carbon Dioxide Anion Gap BUN Creatinine GFR Calculation POC Glucose 253 H 411 H Calculated Osmolal ity Calcium Total Bilirubin AST ALT Alkaline Phosphata se Total Protein Albumin Globulin Vancomycin Trough 11.4 10/04/20 10/04/20 10/04/20 17:11 11:18 03:50 WBC RBC Hgb Hct MCV MCH MCHC RDW Plt Count MPV Neut % (Auto) Lymph % (Auto) [place] % (Auto) Eos % (Auto) Baso % (Auto) Neut # (Auto) Lymph # (Auto) [place] # (Auto) Eos # (Auto) Baso # (Auto) Nucleated RBC % (a uto) Nucleated RBCs # Specimen Type Arterial Sample Site Brachial, left ABG pH 7.49 H ABG pCO2 72.9 H* ABG pO2 76.9 L ABG HCO3 55.7 H ABG O2 Saturation 96.7 ABG Base Excess 28.3 H Adrian Test N/a A-a O2 Gradient Not Reportable Hematocrit 30.9 L Hgb O2 Saturation 94.8 L Carboxyhemoglobin 1.1 Methemoglobin 0.8 Total Hemoglobin 10.1 L Sodium 131.0 Potassium 3.4 L Glucose 291.0 H Ionized Calcium 1.1 O2 Delivery Device Nc O2 Liters/Min 3.5 Stereo Equipment Installer ID Hinja Chloride Carbon Dioxide Anion Gap BUN Creatinine GFR Calculation POC Glucose 319 H 150 H Calculated Osmolal ity Calcium Total Bilirubin AST ALT Alkaline Phosphata se Total Protein Albumin Globulin Vancomycin Trough Vitals: Last Vital Signs Temp 98.3 F 10/05/20 04:00 Pulse 117 H 10/05/20 04:00 Resp 18 10/05/20 04:00 BP 149/85 10/05/20 04:00 Pulse Ox 95 10/05/20 04:00 Discharge Plan Discharge Patient Disposition: Home Condition: Stable Prescriptions: New prednisone 20 mg tablet 20 mg PO DAILY Qty: 7 RF: 0 Klor-Con M20 20 mEq tablet,ER particles/crystals 20 meq PO DAILY Qty: 30 RF: 0 Continued montelukast [Singulair] 10 mg tablet 10 mg PO DAILY RF: 0 albuterol sulfate [ProAir HFA] 90 mcg/actuation HFA aerosol inhaler 2 puff INHALATION Q4H PRN (Reason: Shortness Of Breath) RF: 0 Biktarvy 50-200-25 mg tablet 1 tab PO DAILY RF: 0 atorvastatin 40 mg Tablet 40 mg PO Q24H 30 Days Qty: 30 RF: 3 clopidogrel [Plavix] 75 mg tablet 75 mg PO DAILY Qty: 30 RF: 0 aspirin 81 mg tablet,chewable 81 mg PO DAILY Qty: 30 RF: 3 Lasix 20 mg tablet 40 mg PO DAILY 30 Days Qty: 30 RF: 1 Spiriva with HandiHaler 18 mcg Capsule, W/Inhalation Device 1 cap INHALATION DAILY RF: 0 budesonide-formoterol [Symbicort] 160-4.5 mcg/actuation Hfa Aerosol Inhaler 2 puff INHALATION BID RF: 0 ipratropium-albuterol 0.5 mg-3 mg(2.5 mg base)/3 mL Solution For Nebulization 3 ml INHALATION QID PRN (Reason: Shortness Of Breath) Qty: 180 RF: 0 (DME) glucometer See Rx Instructions .Route .MEDSUPPLY Qty: 1 RF: 0 insulin aspart U-100 [Novolog Flexpen U-100 Insulin] 100 unit/mL (3 mL) insulin pen See Rx Instructions .ROUTE .COMPLEX Qty: 15 RF: 0 sulfamethoxazole-trimethoprim 800-160 mg tablet See Rx Instructions .ROUTE .COMPLEX RF: 0 [place] Capsules 1 cap PO TID RF: 0 Discontinued prednisone 5 mg Tablet 10 mg PO DAILY Qty: 60 RF: 0 Discharge Orders: Discharge Order (Routine); Ordered 10/05/20 Ordered By: Sánchez De León Referrals: Ta Salas MD [Primary Care Provider] - 1 month (Please call Tuesday to schedule a follow up appointment. ) Yamilex Bearden MD [Physician] - 1 month Discharge Diet: Diabetic Discharge Activity: Resume usual activity Patient Instructions: COPD, Prednisone (By mouth), Heart Failure (DC), CHF St oplight, COPD Stoplight, Opioid Safety Discharge Attestations Time Spent in Discharge Care*: less than 30 min Specific Discharge Activities: educating patient, educating and/or supporting family/caregiver, discussing with pcp/other providers, discussing with case mgr/social workers/dc planners, documenting/other paperwork and evaluating patient/reviewing data Status at Discharge: Cognitive status at discharge: cognitively intact , Behavioral status at discharge: cooperative , Quality Metrics Clinical Quality Measures During this hospital stay, did patient experience: None Coding Level of Care Code Acute Chg FW DC note Diagnoses Decompensated heart failure I50.9 Acute and chronic respiratory failure J96.20 Acute exacerbation of chronic obstructive airways disease J44.1 Diabetes E11.9
[2020-10-05] MEDS: acetaZOLAMIDE 250 mg Tablet 500 MG PO (08:48)
== END 2020-10-05 09:20 | disposition home or self-care (01) | DRG 291 ==
LOC: ER 16:25 → ICU 18:05 → MEDSURG 10-04 00:18
PROVIDERS: Admitting Provider Internal Medicine; Emergency Provider Family Medicine; PCP Family Medicine; Visit Provider Internal Medicine
DX: I50.33 Acute on chronic diastolic (congestive) heart failure (principal); J96.22 Acute and chronic respiratory failure with hypercapnia; J96.21 Acute and chronic respiratory failure with hypoxia; B20 Human immunodeficiency virus [HIV] disease; J44.1 Chronic obstructive pulmonary disease with (acute) exacerbation; E46 Unspecified protein-calorie malnutrition; Z68.1 Body mass index [BMI] 19.9 or less, adult; Z91.128 Patient's intentional underdosing of medication regimen for other reason; Z99.81 Dependence on supplemental oxygen; I25.2 Old myocardial infarction; Z79.52 Long term (current) use of systemic steroids; K21.9 Gastro-esophageal reflux disease without esophagitis; F17.210 Nicotine dependence, cigarettes, uncomplicated; E11.9 Type 2 diabetes mellitus without complications; Z79.51 Long term (current) use of inhaled steroids; Z79.02 Long term (current) use of antithrombotics/antiplatelets; Z79.82 Long term (current) use of aspirin; Z79.4 Long term (current) use of insulin
CPT/HCPCS: 36415; 36416; 36600; 51702; 71045; 80051; 80053; 80202; 81003; 82140; 82330; 82805; 82962; 83605; 83735; 83880; 84132; 84145; 84484; 85025; 85610; 85730; 87040; 87205; 93005; 94640; 94660; 96365; 96372; 96375; 99291; J0696; J1650; J1815 ×2; J1940; J2930

== ENCOUNTER 2020-10-12 20:11 | Inpatient (IN) | payer MEDICAID, SELFPAY ==
[2020-10-12] VITALS (8 sets, daily range): BP systolic 143–165; BP diastolic 79–100; PULSE 97–118; RESP 15–31; TEMP 36.6; O2SAT 95–100; BMI 15.8
--- NOTE | 2020-10-12 20:37 | XRR_ITS ---
PROCEDURE INFORMATION: Exam: XR Chest Exam date and time: 10/12/2020 8:37 PM Age: 60 years old Clinical indication: Dyspnea; Additional info: SOB TECHNIQUE: Imaging protocol: XR of the chest. Views: 1 view. COMPARISON: CR XR chest 1V portable [id number] 10/02/2020 1:29 PM FINDINGS: Lungs: Hyperinflated lungs. Emphysematous changes. No consolidation. Negative for pulmonary mass. Pleural spaces: Unremarkable. No pleural effusion. No pneumothorax. Heart/Mediastinum: Unremarkable. No cardiomegaly. Bones/joints: Unremarkable. XR/XR chest 1V portable [id number] IMPRESSION: 1. Sequela of COPD. 2. No focal acute pulmonary disease.
--- NOTE | 2020-10-12 20:38 | ECG_ITS ---
[facility] Test Date: 2020-10-12 Pat Name: Adore Broussard Department: Room: Gender: Female Patient Ambassador: : 1960 Requested By: Mitul Moody Order Number: [id number] Cherelle MD: Darren Blankenship M.D. Measurements Intervals [place] Rate: 108 P: 87 [place]: 140 QRS: 87 QRSD: 81 T: 78 QT: 297 QTc: 398 Interpretive Statements SINUS TACHYCARDIA RIGHT ATRIAL ENLARGEMENT [0.3mV P WAVE] POSSIBLE LEFT ATRIAL ENLARGEMENT [-0.1mV P WAVE IN V1/V2] Compared to ECG 10/02/2020 23:15:15 Atrial abnormality now present Short [place] interval no longer present Electronically Signed On 10-13-2020 18:57:55 CDT by Darren Blankenship M.D. [id number]
[2020-10-12 20:50] LABS: Basophils # 0.1 10^3/uL (0.0-0.1); Basophils % 1.4 %; Eosinophils % 0.7 %; Hematocrit 43.7 % (37.0-47.0); Hemoglobin 13.1 g/dL (11.5-15.3); Lymphocytes % 16.9 %; Mean Corpuscular Hemoglobin 28.4 pg (28.0-34.0); Mean Corpuscular Volume 94.8 fL (81-99); Mean Platelet Volume 10.1 fL (7.4-10.4); Monocytes # 0.6 10^3/uL (0.2-0.9); Monocytes % 10.7 %; Neutrophils # 3.72 10^3/uL (1.8-7.7); Neutrophils % 64.1 %; Nucleated Red Blood Cells % 0 %; Platelet Count 282 10^3/cmm (130-400); Positive C 1; Positive M 1; Red Blood Count 4.61 10^6/uL (4.1-5.3); Red Cell Distribution Width 13.8 % (12.1-15.1); White Blood Count 5.8 10^3/uL (4.0-10.0)
--- NOTE | 2020-10-12 20:57 | ED_ITS ---
HPI - SOB/Dyspnea General: Chief Complaint: Shortness of Breath/Dyspnea Stated Complaint: SOB Time Seen by Provider: 10/12/20 20:16 History of Present Illness: HPI Narrative: 60-year-old female who was recently admitted and discharged from the hospital. She has had 3 admissions in the last couple of months. She has chronic respiratory failure. She presents with shortness of breath generalized weakness, and decreased mental status. She is not cooperative for exam or really answering any of my questions Review of Systems General: Reports: ROS unobtainable due to medical condition PFSH ED PFSH: Medical History Acute exacerbation of chronic obstructive airways disease Acute on chronic respiratory failure with hypoxia and hypercapnia Chest pain CHF (congestive heart failure) Ejection fraction 57% on echocardiogram done 05/15/2020 Chronic respiratory failure with hypoxia and hypercapnia Chronic steroid use Congestive heart failure COPD (chronic obstructive pulmonary disease) Edema of left lower extremity GERD (gastroesophageal reflux disease) HIV (human immunodeficiency virus infection) Nicotine addiction NSTEMI (non-ST elevated myocardial infarction) Protein calorie malnutrition Sinus tachycardia Troponin level elevated Surgical History H/O laparoscopy History of History of hysterectomy Family History Mother COPD (chronic obstructive pulmonary disease) Father CAD (coronary artery disease) Social History Smoking and tobacco status: current every day smoker cigarettes Years cigarettes smoked: 50 [ Other cigarette details: Hx of 1 PPD x 15 Years ] Second hand smoke exposure: Yes Alcohol intake: current Alcohol intake frequency: holidays/special occasions only Lives independently: Yes Household members: none Marital status: / Current occupational status: disabled History of recent travel: No Current gender identity: Female Female Reproductive History: Date of last menstrual period: 06/27/20 Physical Exam Const: GENERAL APPEARANCE: lethargic and frail appearing; not cooperative NUTRITIONAL APPEARANCE: cachectic ORIENTATION/CONSCIOUSNESS: Yes lethargic HENMT: COMMON NORMALS: normocephalic HEAD & SCALP: normocephalic Chest: COMMONS NORMALS: normal inspection of the chest Resp: EFFORT & INSPECTION: Yes decreased respiratory effort AUSCULTATION: rhonchi, wheezes and diminished lung sounds Cardio: COMMON NORMALS: regular rate and regular rhythm RATE: regular rate RHYTHM: regular rhythm GI: COMMON NORMALS: Normal to inspection, nondistended, normoactive bowel sounds present and Soft to palpation PALPATION: Yes Soft to palpation Neuro: SENSORIUM/ORIENTATION: Yes lethargic Skin: NARRATIVE SKIN EXAM: Mild mottling of lower extremities indicative of vascular disease Course Vital Signs: Vital signs: Vital Signs Temperature 97.9 F 10/12/20 20:12 Pulse Rate 127 H 10/13/20 02:07 Respiratory Rate 30 H 10/13/20 02:07 Blood Pressure 150/87 10/13/20 02:07 Pulse Oximetry 100 10/13/20 02:07 MDM - SOB/Dyspnea MDM Narrative: Medical decision making narrative: Patient refuses intubation. ABG shows significant respiratory acidosis with a pH of 7.17, PCO2 over 150. White blood cell count is 5.8. Hemoglobin is 13. Bicarb is 44. Potassium is 5.1. Chest x-ray appears nonacute. She appears to be oxygenating okay, the CO2 is the concern. She has been given DuoNeb treatment, Solu-Medrol, and BiPAP in the ER. She appears to be responding to BiPAP, although her getting another blood gas to make sure. She will be admitted. Lab Data: Labs: Lab Results 10/12/20 10/12/20 10/12/20 Range/Units 20:40 20:40 20:40 WBC 5.8 (4.0-10.0) 10^3/ uL RBC 4.61 (4.1-5.3) 10^6/u L Hgb 13.1 (11.5-15.3) g/dL Hct 43.7 (37.0-47.0) % MCV 94.8 (81-99) fL MCH 28.4 (28.0-34.0) pg MCHC 30.0 (30.0-36.0) g/dL RDW 13.8 (12.1-15.1) % Plt Count 282 (130-400) 10^3/c mm MPV 10.1 (7.4-10.4) fL Neut % (Auto) 64.1 % Lymph % (Auto) 16.9 % [place] % (Auto) 10.7 % Eos % (Auto) 0.7 % Baso % (Auto) 1.4 % Neut # (Auto) 3.72 (1.8-7.7) 10^3/u L Lymph # (Auto) 1.0 (0.8-4.8) 10^3/u L [place] # (Auto) 0.6 (0.2-0.9) 10^3/u L Eos # (Auto) 0.0 (0.0-0.8) 10^3/u L Baso # (Auto) 0.1 (0.0-0.1) 10^3/u L Nucleated RBC % (a uto) 0 % Nucleated RBCs # 0.0 /100WBC Specimen Type Sample Site ABG pH (7.35-7.45) ABG pCO2 (35-45) mmHg ABG pO2 (80.0-100.0) mmH g ABG HCO3 (22-26) mmol/L ABG Base Excess (-2.0-2.0) mmol/ L Adrian Test Hematocrit (37-47) % Hgb O2 Saturation (95-100) % Carboxyhemoglobin (0.4-20.1) %THgb Methemoglobin (0.4-1.5) % Total Hemoglobin (12-16) g/dL O2 Delivery Device O2 Liters/Min % Architectural Draftsman ID Sodium 135 L (136-145) mmol/L Potassium 5.1 (3.5-5.1) mmol/L Chloride 87 L (98-107) mmol/L Carbon Dioxide 44 H* (22-29) mmol/L Anion Gap 9.1 (5-19) BUN 10 (6-20) mg/dL Creatinine 0.5 (0.5-0.9) mg/dL GFR Calculation 126.3 (90-130) mL/min Glucose 232 H (65-115) mg/dL Calculated Osmolal ity 286 (285-295) mOsm/k g Lactic Acid 0.6 (0.5-2.2) mmol/L Calcium 9.0 (8.5-10.5) mg/dL Total Bilirubin 0.5 (0.15-1.2) mg/dL AST 24 (0-32) U/L ALT 26 (0-33) U/L Alkaline Phosphata se 72 (35-105) IU/L Lactate Dehydrogen ase (135-214) U/L Troponin T Baselin e (0-10) ng/L Troponin T 120 Min [place] (0-10) ng/L Delta Troponin T (0-10) ABS# NT-Pro-B Natriuret Pep 546 H (0-125) pg/mL Total Protein 5.9 L (6.6-8.7) g/dL Albumin 3.9 (3.5-5.2) g/dL Globulin 2.0 (1.3-4.6) g/dL SARS-CoV-2 Ag (Rap id) (Negative) 10/12/20 10/12/20 10/12/20 Range/Units 20:40 20:40 21:00 WBC (4.0-10.0) 10^3/ uL RBC (4.1-5.3) 10^6/u L Hgb (11.5-15.3) g/dL Hct (37.0-47.0) % MCV (81-99) fL MCH (28.0-34.0) pg MCHC (30.0-36.0) g/dL RDW (12.1-15.1) % Plt Count (130-400) 10^3/c mm MPV (7.4-10.4) fL Neut % (Auto) % Lymph % (Auto) % [place] % (Auto) % Eos % (Auto) % Baso % (Auto) % Neut # (Auto) (1.8-7.7) 10^3/u L Lymph # (Auto) (0.8-4.8) 10^3/u L [place] # (Auto) (0.2-0.9) 10^3/u L Eos # (Auto) (0.0-0.8) 10^3/u L Baso # (Auto) (0.0-0.1) 10^3/u L Nucleated RBC % (a uto) % Nucleated RBCs # /100WBC Specimen Type Arterial Sample Site Brachial, left ABG pH 7.12 L* (7.35-7.45) ABG pCO2 156.0 H* (35-45) mmHg ABG pO2 155.0 H (80.0-100.0) mmH g ABG HCO3 50.5 H (22-26) mmol/L ABG Base Excess 15.2 H (-2.0-2.0) mmol/ L Adrian Test N/a Hematocrit 38.5 (37-47) % Hgb O2 Saturation 97.6 (95-100) % Carboxyhemoglobin 1.1 (0.4-20.1) %THgb Methemoglobin 0.9 (0.4-1.5) % Total Hemoglobin 12.6 (12-16) g/dL O2 Delivery Device Nc O2 Liters/Min 3.0 % Architectural Draftsman ID Hinja Sodium (136-145) mmol/L Potassium (3.5-5.1) mmol/L Chloride (98-107) mmol/L Carbon Dioxide (22-29) mmol/L Anion Gap (5-19) BUN (6-20) mg/dL Creatinine (0.5-0.9) mg/dL GFR Calculation (90-130) mL/min Glucose (65-115) mg/dL Calculated Osmolal ity (285-295) mOsm/k g Lactic Acid (0.5-2.2) mmol/L Calcium (8.5-10.5) mg/dL Total Bilirubin (0.15-1.2) mg/dL AST (0-32) U/L ALT (0-33) U/L Alkaline Phosphata se (35-105) IU/L Lactate Dehydrogen ase (135-214) U/L Troponin T Baselin e 40 H (0-10) ng/L Troponin T 120 Min [place] (0-10) ng/L Delta Troponin T (0-10) ABS# NT-Pro-B Natriuret Pep (0-125) pg/mL Total Protein (6.6-8.7) g/dL Albumin (3.5-5.2) g/dL Globulin (1.3-4.6) g/dL SARS-CoV-2 Ag (Rap id) Negative (Negative) 10/12/20 10/12/20 10/12/20 Range/Units 22:38 22:50 23:01 WBC (4.0-10.0) 10^3/ uL RBC (4.1-5.3) 10^6/u L Hgb (11.5-15.3) g/dL Hct (37.0-47.0) % MCV (81-99) fL MCH (28.0-34.0) pg MCHC (30.0-36.0) g/dL RDW (12.1-15.1) % Plt Count (130-400) 10^3/c mm MPV (7.4-10.4) fL Neut % (Auto) % Lymph % (Auto) % [place] % (Auto) % Eos % (Auto) % Baso % (Auto) % Neut # (Auto) (1.8-7.7) 10^3/u L Lymph # (Auto) (0.8-4.8) 10^3/u L [place] # (Auto) (0.2-0.9) 10^3/u L Eos # (Auto) (0.0-0.8) 10^3/u L Baso # (Auto) (0.0-0.1) 10^3/u L Nucleated RBC % (a uto) % Nucleated RBCs # /100WBC Specimen Type Arterial Sample Site Brachial, left ABG pH 7.29 L (7.35-7.45) ABG pCO2 107.0 H* (35-45) mmHg ABG pO2 63.3 L (80.0-100.0) mmH g ABG HCO3 52.0 H (22-26) mmol/L ABG Base Excess 20.0 H (-2.0-2.0) mmol/ L Adrian Test N/a Hematocrit 39.1 (37-47) % Hgb O2 Saturation (95-100) % Carboxyhemoglobin (0.4-20.1) %THgb Methemoglobin (0.4-1.5) % Total Hemoglobin (12-16) g/dL O2 Delivery Device Nc O2 Liters/Min 3.0 % Architectural Draftsman ID Hinja Sodium (136-145) mmol/L Potassium (3.5-5.1) mmol/L Chloride (98-107) mmol/L Carbon Dioxide (22-29) mmol/L Anion Gap (5-19) BUN (6-20) mg/dL Creatinine (0.5-0.9) mg/dL GFR Calculation (90-130) mL/min Glucose (65-115) mg/dL Calculated Osmolal ity (285-295) mOsm/k g Lactic Acid (0.5-2.2) mmol/L Calcium (8.5-10.5) mg/dL Total Bilirubin (0.15-1.2) mg/dL AST (0-32) U/L ALT (0-33) U/L Alkaline Phosphata se (35-105) IU/L Lactate Dehydrogen ase 221 H (135-214) U/L Troponin T Baselin e (0-10) ng/L Troponin T 120 Min [place] 43.69 H (0-10) ng/L Delta Troponin T 3.69 (0-10) ABS# NT-Pro-B Natriuret Pep (0-125) pg/mL Total Protein (6.6-8.7) g/dL Albumin (3.5-5.2) g/dL Globulin (1.3-4.6) g/dL SARS-CoV-2 Ag (Rap id) (Negative) Discharge Plan Discharge Patient Disposition: Admitted As Inpatient Admit Provider: Faiza Perry Clinical Impression: Acute exacerbation of chronic obstructive airways disease Respiratory failure Qualifiers: Chronicity: acute Respiratory failure complication: hypercapnia Qualified Code(s): J96.02 - Acute respiratory failure with hypercapnia Condition: Serious Coding Level of Care Code ED Stockbroker for g Fwd Exam Detailed
[2020-10-12 21:07] LABS: Arterial Blood Gas Hematocrit 38.5 % (37-47); Base Excess ABG 15.2 mmol/L (-2.0-2.0); Blood Gas Sample Type Arterial; Carboxyhemoglobin 1.1 %THgb (0.4-20.1); HCO3 ABG 50.5 mmol/L (22-26); HGB O2 Sat 97.6 % (95-100); Methemoglobin 0.9 % (0.4-1.5); Total Hemoglobin 12.6 g/dL (12-16)
[2020-10-12 21:08] LABS: ABG PH Result 7.12 (7.35-7.45); Blood Gas Sample Site Brachial, left; Oxygen Device NC
[2020-10-12 21:09] LABS: Lactic Sepsis W/Reflex 0.6 mmol/L (0.5-2.2)
[2020-10-12 21:12] LABS: Troponin(5th) Baseline 40 ng/L (0-10)
[2020-10-12 21:21] LABS: Alanine Aminotransferase 26 U/L (0-33); Albumin Level 3.9 g/dL (3.5-5.2); Alkaline Phosphatase 72 IU/L (35-105); Blood Urea Nitrogen 10 mg/dL (6-20); Chloride 87 mmol/L (98-107); Glomerular Filtration Rate 126.3 mL/min (90-130); Glucose 232 mg/dL (65-115); NT Pro B Type Natriuretic Pept 546 pg/mL (0-125); Osmolality Calculated 286 mOsm/kg (285-295); Sodium 135 mmol/L (136-145); Total Bilirubin 0.5 mg/dL (0.15-1.2); Total Protein 5.9 g/dL (6.6-8.7)
[2020-10-12] MEDS: ipratropium-albuterol 3 mL Neb INHALATION (21:21)
[2020-10-12 21:27] LABS: Anion Gap 9.1 (5-19); Aspartate Amino Transferase 24 U/L (0-32); Potassium 5.1 mmol/L (3.5-5.1)
[2020-10-12 21:29] LABS: Carbon Dioxide 44 mmol/L (22-29); SARS Covid-2 Antigen Negative (Negative)
[2020-10-12 21:38] LABS: Slide Review Slide Review Perform
--- NOTE | 2020-10-12 22:38 | ECG_ITS ---
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 Measurements Intervals [place] Rate: 119 P: 88 [place]: 131 QRS: 85 QRSD: 91 T: 69 QT: 290 QTc: 408 Interpretive Statements SINUS TACHYCARDIA RIGHT ATRIAL ENLARGEMENT [0.3mV P WAVE] POSSIBLE LEFT ATRIAL ENLARGEMENT [-0.1mV P WAVE IN V1/V2] MINIMAL ST DEPRESSION [0.025+ mV ST DEPRESSION] Compared to ECG 10/02/2020 23:15:15 Atrial abnormality now present ST (T wave) deviation now present Short [place] interval no longer present Electronically Signed On 10-13-2020 19:02:15 CDT by Darren Blankenship M.D. [id number]
[2020-10-12 22:56] LABS: ABG PH Result 7.29 (7.35-7.45); Arterial Blood Gas Hematocrit 39.1 % (37-47); Blood Gas Sample Site Brachial, left; Blood Gas Sample Type Arterial; Oxygen Device NC; PO2 ABG 63.3 mmHg (80.0-100.0)
--- NOTE | 2020-10-12 23:23 | PM.HP ---
Providers/Chief Complaint Admitting Physician: Faiza Perry MD Primary Care Provider: Ta Salas MD Chief Complaint: SOB History of Present Illness Adore Broussard is a 60 year old female HIV on Biktarvy, chronic hypoxemic,hypercapnic respiratory failure due to obstructive lung disease on 2-3L of o2 via NC and trilogy, noncompliant with trilogy, NSTEMI, HFpEF, came in with chief complaint of shortness of breath, on multiple recent hospital admissions for the same. She was found to have severe hypercapnic hypoxic respiratory failure. ABG 7.1 2/156/155/50 0.5 on 3 L/min nasal cannula. She has been started on BiPAP ventilation with improvement in her gas to 7.0 9/107/60 3.3/52. She was completely obtunded initially upon presentation, now with Bipap mentation is improving. She is alert awake able to have a conversation with me at this time. Insists on eating and taking a break from her BiPAP. Has had a positive COVID-19 contact and her nephew who tested positive yesterday. I am uncertain about her vaccination status. At first she tells me she got vaccinated months ago, then states it was only last week. Chest x-ray shows chronic emphysematous changes. Covid rapid antigen is negative. Review of Systems General: Reports: 10 or more systems reviewed and unremarkable except in HPI and below Const: Denies: fever(s), chills or body aches Eyes: Denies: change in vision, blurry vision or photophobia ENMT: Reports: hoarseness; Denies: throat pain, enlarged tonsils, odynophagia or nasal congestion Card: Denies: chest pain, palpitations, irregular heart rhythm, edema, swelling of feet/ankles, lightheadedness, pre-syncope, dyspnea on exertion or orthopnea Resp: Denies: dyspnea, productive cough, non-productive cough, wheezing, stridor, pain on inspiration, change in phlegm color, hemoptysis or chest congestion GI: Denies: abdominal pain, nausea, vomiting, hematemesis, coffee ground emesis, dysphagia, heartburn, diarrhea, constipation, GI cramping, change in stool character, hematochezia or melena : Denies: flank pain, difficulty voiding, dysuria, urinary frequency, urinary urgency, urinary hesitancy or hematuria Musc: Denies: neck pain, back pain, extremity pain, joint swelling, joint warmth or deformity Neuro: Denies: headache(s), numbness in extremities, weakness in extremities, sensory changes, difficulty walking, frequent falls, dizziness, vertigo, behavioral changes, Slurred speech present or seizure-like activity Psych: Denies: anxiety, depression, suicidal ideation or homicidal ideation Endo: Denies: polyuria, polydipsia, tired all the time, cold intolerance or hot flashes Yazan/Lymph: Denies: easy bruising or easy bleeding Medications/Allergies Home Medications Medication Instructions Recorded Confirmed Last Taken Type albuterol sulfate 90 mcg/actuation 2 puff INHALATION Q4H PRN 10/03/19 10/02/20 Unknown History aerosol inhaler montelukast 10 mg tablet 10 mg PO DAILY 10/03/19 10/02/20 08/28/20 History Biktarvy 1 tab PO DAILY 04/23/20 10/02/20 09/18/20 History Spiriva with HandiHaler 1 cap INHALATION DAILY 05/05/20 10/02/20 09/18/20 History budesonide-formoterol [Symbicort] 2 puff INHALATION BID 05/05/20 10/02/20 Unknown History ipratropium-albuterol 3 ml INHALATION QID PRN #180 ml 05/16/20 10/02/20 Unknown Rx glucometer #1 ea 06/16/20 10/02/20 Unknown Rx insulin aspart U-100 [Novolog See Rx Instructions .ROUTE 06/16/20 10/02/20 09/18/20 13:00 Rx Flexpen U-100 Insulin] .COMPLEX #15 ml 4 UNITS sulfamethoxazole-trimethoprim See Rx Instructions .ROUTE .COMPLEX 08/06/20 10/02/20 08/27/20 History aspirin 81 mg PO DAILY #30 tab 09/03/20 10/02/20 Unknown Rx atorvastatin 40 mg PO Q24H 30 Days #30 tab 09/03/20 10/02/20 Unknown Rx clopidogrel [Plavix] 75 mg PO DAILY #30 tab 09/03/20 10/02/20 Unknown Rx [place] Capsules 1 cap PO TID 09/18/20 10/02/20 Unknown History furosemide [Lasix] 40 mg PO DAILY 30 Days #30 tab 10/05/20 Unknown Rx potassium chloride [Klor-Con M20] 20 meq PO DAILY #30 tab 10/05/20 Unknown Rx prednisone 20 mg PO DAILY #7 tab 10/05/20 Unknown Rx Allergies Allergy/AdvReac Type Severity Reaction Status Date / Time Penicillins Allergy ALGY-Difficulty Verified 10/12/20 20:16 Breathing phenobarbital Allergy ALGY-Hives Verified 10/12/20 20:16 Tetanus Vaccines and Toxoid Allergy ALGY-Hives Verified 10/12/20 20:16 PFSH Acute PFSH: Medical History (Updated 10/13/20 @ 06:24 by Faiza Perry MD) Acute and chronic respiratory failure Acute exacerbation of chronic obstructive airways disease Acute exacerbation of chronic obstructive airways disease Acute on chronic respiratory failure with hypoxia and hypercapnia BMI less than 19,adult Chest pain CHF (congestive heart failure) Ejection fraction 57% on echocardiogram done 05/15/2020 Chronic respiratory failure with hypoxia and hypercapnia Chronic steroid use Congestive heart failure COPD (chronic obstructive pulmonary disease) Decompensated heart failure Diabetes Edema of left lower extremity GERD (gastroesophageal reflux disease) HIV (human immunodeficiency virus infection) Nicotine addiction NSTEMI (non-ST elevated myocardial infarction) 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 Protein calorie malnutrition Protein-calorie malnutrition, moderate Sinus tachycardia Troponin level elevated Surgical History H/O laparoscopy History of History of hysterectomy Family History Mother COPD (chronic obstructive pulmonary disease) Father CAD (coronary artery disease) Social History Smoking and tobacco status: current every day smoker cigarettes Years cigarettes smoked: 50 [ Other cigarette details: Hx of 1 PPD x 15 Years ] Second hand smoke exposure: Yes Alcohol intake: current Alcohol intake frequency: holidays/special occasions only Lives independently: Yes Household members: none Marital status: / Current occupational status: disabled History of recent travel: No Current gender identity: Female Female Reproductive History: Date of last menstrual period: 06/27/20 Vitals/I&O/Wt Last Vital Signs Temp 97.9 F 10/12/20 20:12 Pulse 103 H 10/12/20 22:59 Resp 25 H 10/12/20 22:59 BP 143/99 10/12/20 22:59 Pulse Ox 95 10/12/20 22:59 Weight last 48 hrs Weight 38.102 kg Physical Exam Narrative: EXAM NARRATIVE: General: Awake alert tachypneic HEENT: PERRLA, pupils bilaterally equal and reactive, pallors not present Chest: Bilateral diffuse rhonchi bilaterally CVS: S1-S2 regular, no murmurs, no tachycardia, no gallops, no rubs Abdomen: Soft, nontender, no organomegaly, bowel sounds present Neuro: No focal deficits, no facial deformity, AO x3, power 5/5 in all limbs Extremities: No clubbing edema or lymphadenopathy Data : 10/12/20 20:40 10/12/20 20:40 A&P Assessment and plan (1) Acute exacerbation of chronic obstructive airways disease: This is likely related to a COPD exacerbation with acute on chronic hypercapnic respiratory failure. DuoNeb inhalation every 4 hours scheduled, budesonide scheduled inhalation Methylprednisolone 60 mg IV every 12 hours Repeat ABG with a.m. labs Status: Acute (2) Chronic respiratory failure with hypoxia and hypercapnia: Status: Acute (3) HIV (human immunodeficiency virus infection): Recent blood pain her viral load with undetectable HIV RNA at 49. CD4 count was improving though still less than 150 improving from 9 few months ago Suspect that blip and viral load is related to interruptions in Biktarvy from multiple recent hospital admissions. Additionally she has had multiple courses of recent steroids which may have resulted in depressed CD4 count. On last office follow-up with infectious disease, AFB cultures were planned to rule out underlying JOSE GUADALUPE which may be a potential cause of worsening respiratory status however patient was unable to complete. Sputum mycobacterial culture ordered for suspected MAC, does not need isolation for this. Screening QuantiFERON gold LDH, Fungitell screen to evaluate for PJP and is uncertain if patient is taking her recommended Bactrim prophylaxis. All of the above can be follow-up as outpatient. Status: Acute Qualifiers: HIV symptom status: asymptomatic Qualified Code(s): Z21 - Asymptomatic human immunodeficiency virus [HIV] infection status Attestations Medical Necessity Statement*: Anticipate greater than 2 midnight admission for management of acute on chronic hypercapnic respiratory failure Coding Level of Care Code Acute Laboratory Technical Specialist for [facility] Fwd Diagnoses Acute exacerbation of chronic obstructive airways disease J44.1 Chronic respiratory failure with hypoxia and hypercapnia J96.11; J96.12 HIV (human immunodeficiency virus infection) Z21 HIV symptom status: asymptomatic
[2020-10-12 23:37] LABS: Troponin 5 2HR 43.69 ng/L (0-10); Troponin 5 2HR Delta 3.69 ABS# (0-10)
[2020-10-13] VITALS (23 sets, daily range): BP systolic 107–150; BP diastolic 68–96; PULSE 68–139; RESP 15–32; TEMP 36.6–37.3; O2SAT 91–100
[2020-10-13 00:35] LABS: Lactate Dehydrogenase 221 U/L (135-214)
[2020-10-13] MEDS: LORazepam 2 mg/mL INJ 1 mL 1 MG IVP (02:32)
--- NOTE | 2020-10-13 02:38 | ECG_ITS ---
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 Measurements Intervals [place] Rate: 114 P: 86 MT: 120 QRS: 85 QRSD: 89 T: 69 QT: 304 QTc: 420 Interpretive Statements SINUS TACHYCARDIA RIGHT ATRIAL ENLARGEMENT [0.3mV P WAVE] LEFT ATRIAL ENLARGEMENT [-0.15mV P WAVE IN V1/V2] Compared to ECG 10/12/2020 20:21:45 ST (T wave) deviation no longer present Electronically Signed On 10-13-2020 19:02:20 CDT by Darren Blankenship M.D. [id number]
[2020-10-13 03:05] LABS: Troponin 5 6HR 41.94 ng/L (0-10); Troponin 5 6HR Delta 1.94 ng/L (0-12)
[2020-10-13 06:43] LABS: Glucose Point of Care 223 mg/dL (70-110)
[2020-10-13] MEDS: ipratropium-albuterol 3 mL Neb INHALATION ×4 (08:00→20:06)
[2020-10-13] MEDS: budesonide 0.5 mg/2 mL Neb INHALATION (08:00)
[2020-10-13] MEDS: montelukast sodium 10 mg Tablet PO (11:05)
[2020-10-13] MEDS: pantoprazole DR 40 mg Tablet PO (11:05)
[2020-10-13] MEDS: clopidogrel 75 mg Tablet PO (11:05)
[2020-10-13] MEDS: aspirin 81 mg Chew Tablet PO (11:05)
[2020-10-13] MEDS: FUROsemide 40 mg Tablet PO (11:06)
--- NOTE | 2020-10-13 11:10 | PC.NURSE ---
patient given daily medications and taken off of bipap. after taking medications patient refused to put bipap mask back on. patient placed on 3L o2 per her home dosing.
[2020-10-13 11:41] LABS: D Dimer 0.38 ug/mIFEU (0-0.59)
[2020-10-13 12:13] LABS: Glucose Point of Care 173 mg/dL (70-110)
--- NOTE | 2020-10-13 12:48 | PC.PHAR ---
PT UNABLE TO CONFIRM MEDICATION. I TRIED CALLING BOTH PEOPLE ON PT'S CONTACT LIST, BUT WAS UNABLE TO REACH EITHER OF THEM. I WILL KEEP TRYING. IN THE MEANTIME, I AM GOING BY MEDICATION HISTORY AND PHARMACY LIST.
[2020-10-13 13:34] LABS: ABG PH Result 7.48 (7.35-7.45); Arterial Blood Gas Hematocrit 36.8 % (37-47); Base Excess ABG 28.8 mmol/L (-2.0-2.0); Blood Gas Operator Identificat glc; Blood Gas Sample Site Brachial, left; Blood Gas Sample Type Arterial; HCO3 ABG 57.4 mmol/L (22-26); Oxygen Device BIPAP; PO2 ABG 63.4 mmHg (80.0-100.0)
[2020-10-13 13:38] LABS: ABG PCO2 77.2 mmHg (35-45); Blood Gas CCRB Time 1345
--- NOTE | 2020-10-13 15:41 | P.PN_ITS ---
Subjective Subjective: Interval history: Patient was seen and examined in the room, she is in reverse isolation QuantiFERON test sent, this morning she refused ABG however it was obtained around 1:00 which shows improvement on BiPAP patient did not participate during my interview in the morning, her answers were very limited, she was on AVAPS, overnight H&P and labs reviewed, D-dimer unremarkable Vitals/I&O/Wt Last Vital Signs Temp 98.1 F 10/13/20 12:00 Pulse 131 H 10/13/20 14:41 Resp 22 H 10/13/20 12:00 BP 123/68 10/13/20 12:00 Pulse Ox 97 10/13/20 14:41 Weight last 48 hrs Weight 38.102 kg Physical Exam Narrative: EXAM NARRATIVE: elderly female Malnourished, cachectic Protein calorie malnourishment muscle mass loss Pedal edema 2+ bilaterally Unkept appearance S1, S2 Soft abdomen Lethargic somnolent on AVAPS She needs verbal cues Bilateral diminished breath sounds Data : 10/12/20 20:40 10/12/20 20:40 A&P Assessment and plan (1) Acute exacerbation of chronic obstructive airways disease: Status: Acute (2) HIV (human immunodeficiency virus infection): Status: Acute Qualifiers: HIV symptom status: asymptomatic Qualified Code(s): Z21 - Asymptomatic human immunodeficiency virus [HIV] infection status (3) Respiratory failure: Status: Acute Qualifiers: Chronicity: acute Respiratory failure complication: hypercapnia Qualified Code(s): J96.02 - Acute respiratory failure with hypercapnia (4) Chronic respiratory failure with hypoxia and hypercapnia: Status: Acute (5) Acute on chronic respiratory failure with hypoxia and hypercapnia: Status: Acute Additional A&P Information Acute on chronic hypoxic hypercarbic respiratory failure High pH and hypercapnia improved with AVAPS Increase in bicarb is appropriate to rise of CO2 4:10 She has pedal edema, I would be reluctant to give her Lasix or Bumex if anything would recommend acetazolamide Protein calorie malnourishment cachectic appearance end-stage COPD, active smoker, Guarded prognosis History of noncompliance and nicotine dependence No signs of pneumonia, D-dimer unremarkable Diminished airflow without active wheezing, I will reduce the dose of steroids HIV CD4 count less than 150 HIV RNA 49, Dr. Perry recommended sputum mycobacterial culture for MAC LDH Fungitell for PCP pneumonia and QuantiFERON gold to rule out TB Continue reverse isolation N.p.o. except meds, advance diet once mentation is better DNR/DNI Might benefit from a dietary consult for cachexia protein calorie malnourishment DVT prophylaxis Lovenox Attestations Medical Necessity Statement*: Requires hospitalization for hypercapnic hypoxic respiratory failure Time Spent in Patient Care: (>than 50% of time spent in counselling and/or direct pt care on unit) . 35mins Coding Level of Care Code Acute Director Of Hemophilia for [facility] Fwd Diagnoses Acute exacerbation of chronic obstructive airways disease J44.1 HIV (human immunodeficiency virus infection) Z21 HIV symptom status: asymptomatic Respiratory failure J96.02 Chronicity: acute Respiratory failure complication: hypercapnia Chronic respiratory failure with hypoxia and hypercapnia J96.11; J96.12 Acute on chronic respiratory failure with hypoxia and hypercapnia J96.21; J96.22
[2020-10-13 17:29] LABS: Glucose Point of Care 135 mg/dL (70-110)
[2020-10-13 21:19] LABS: Glucose Point of Care 342 mg/dL (70-110)
[2020-10-14] VITALS (12 sets, daily range): BP systolic 127–156; BP diastolic 66–96; PULSE 112–136; RESP 16–24; TEMP 36.8–37.3; O2SAT 95–99
[2020-10-14] MEDS: atorvastatin 40 mg Tablet PO (03:44)
[2020-10-14] MEDS: enoxaparin 40 mg/0.4 mL Syringe SUBCUT (03:45)
[2020-10-14 06:22] LABS: Glucose Point of Care 98 mg/dL (70-110)
[2020-10-14] MEDS: ipratropium-albuterol 3 mL Neb INHALATION ×2 (07:51→12:06)
[2020-10-14] MEDS: pantoprazole DR 40 mg Tablet PO (09:42)
[2020-10-14] MEDS: montelukast sodium 10 mg Tablet PO (09:42)
[2020-10-14] MEDS: aspirin 81 mg Chew Tablet PO (09:42)
[2020-10-14] MEDS: clopidogrel 75 mg Tablet PO (09:42)
[2020-10-14] MEDS: predniSONE 20 mg Tablet 40 MG PO (09:42)
[2020-10-14 11:23] LABS: Glucose Point of Care 299 mg/dL (70-110)
[2020-10-14] MEDS: nicotine 21 mg Patch 1 PATCH TRANSDERMA (13:51)
[2020-10-14] MEDS: albuterol 8 gm MDI 2 PUFF INHALATION ×2 (16:19→21:18)
[2020-10-14 17:02] LABS: Glucose Point of Care 487 mg/dL (70-110)
--- NOTE | 2020-10-14 17:20 | P.PN_ITS ---
Subjective Subjective: Interval history: Patient was seen and examined this morning along with her nurse, patient was wanted to leave A but agreed to stay after we had discussion about QuantiFERON test and HIV opportunistic infection prophylactic regimen and BiPAP dependency She gets easily short of breath during conversation, high risk of deterioration Today I have started her on Bactrim every other day regimen for PCP prophylaxis Vitals/I&O/Wt Last Vital Signs Temp 98.8 F 10/14/20 16:00 Pulse 128 H 10/14/20 16:26 Resp 22 H 10/14/20 16:26 BP 127/69 10/14/20 16:00 Pulse Ox 96 10/14/20 16:26 10/14/20 10/14/20 10/14/20 06:59 14:59 22:59 Intake Total 480 / 480 Balance 480 / 480 Weight last 48 hrs Weight 38.102 kg Physical Exam Narrative: EXAM NARRATIVE: Cachectic malnourished elderly female Conversational dyspnea on 3L nasal cannula S1, S2 sinus tachycardia Abdomen soft Cachectic malnourished Pain extremities EOMI, PERRLA Anxious mood No neurological deficit Using respiratory accessory muscles No joint swelling No skin cellulitis changes Data : 10/12/20 20:40 10/12/20 20:40 A&P Assessment and plan (1) Acute on chronic respiratory failure with hypoxia and hypercapnia: Status: Acute (2) HIV (human immunodeficiency virus infection): Status: Acute Qualifiers: HIV symptom status: asymptomatic Qualified Code(s): Z21 - Asymptomatic human immunodeficiency virus [HIV] infection status (3) Acute exacerbation of chronic obstructive airways disease: Status: Acute (4) Nicotine addiction: Status: Chronic Qualifiers: Nicotine product type: cigarettes Substance use status: other nicotine- induced disorder Qualified Code(s): F17.218 - Nicotine dependence, cigarettes, with other nicotine-induced disorders Additional A&P Information Acute on chronic hypoxic hypercarbic respiratory failure due to smoking addiction Awaiting QuantiFERON and Fungitell Currently saturating well on 3 L nasal cannula BiPAP dependent, conversational dyspnea with use of respiratory accessory muscles Continue BiPAP, Patient was very anxious today, started nicotine replacement therapy HIV CD4 less than 50 On antiviral regimen Start Bactrim every other day double strength PCP prophylaxis Consistent carb diet DNR/DNI Lovenox DVT prophylaxis Attestations Medical Necessity Statement*: Currently awaiting QuantiFERON and Fungitell, will discharge home once results are back Time Spent in Patient Care: 30mins Coding Level of Care Code 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
[2020-10-14] MEDS: sulfamethoxazole-trimeth DS 160-800 mg Tablet 1 TAB PO (18:12)
[2020-10-14 20:31] LABS: Glucose Point of Care 228 mg/dL (70-110)
[2020-10-14 22:47] LABS: Glucose Point of Care 40 mg/dL (70-110)
[2020-10-15] VITALS (12 sets, daily range): BP systolic 128–150; BP diastolic 71–89; PULSE 100–128; RESP 17–22; TEMP 36.8–37.5; O2SAT 92–100
[2020-10-15] MEDS: albuterol 8 gm MDI 2 PUFF INHALATION (03:30)
[2020-10-15] MEDS: enoxaparin 40 mg/0.4 mL Syringe SUBCUT (03:40)
[2020-10-15] MEDS: atorvastatin 40 mg Tablet PO (03:41)
[2020-10-15] MEDS: LORazepam 0.5 mg Tablet 0.25 MG PO (03:41)
[2020-10-15 06:02] LABS: Glucose Point of Care 209 mg/dL (70-110)
[2020-10-15 06:31] LABS: Glucose Point of Care 99 mg/dL (70-110)
[2020-10-15] MEDS: nicotine 21 mg Patch 1 PATCH TRANSDERMA (08:50)
[2020-10-15] MEDS: predniSONE 20 mg Tablet 40 MG PO (08:51)
[2020-10-15] MEDS: aspirin 81 mg Chew Tablet PO (08:51)
[2020-10-15] MEDS: pantoprazole DR 40 mg Tablet PO (08:51)
[2020-10-15] MEDS: montelukast sodium 10 mg Tablet PO (08:51)
[2020-10-15] MEDS: clopidogrel 75 mg Tablet PO (08:51)
[2020-10-15] MEDS: ipratropium-albuterol 3 mL Neb INHALATION ×3 (09:39→15:52)
[2020-10-15 11:31] LABS: Glucose Point of Care 100 mg/dL (70-110)
--- NOTE | 2020-10-15 13:58 | PC.NUTR ---
Nutrition assessment completed due to low BMI and MST score of 2. Recommend chocolate Glucerna with meals to provide additional kcal/protein. Recommend to encourage po intakes of meals/supplements to optimize nutrition and promote wt maintenance. See RD assessment for further details.
[2020-10-15 14:52] LABS: Glucose Point of Care 596 mg/dL (70-110)
--- NOTE | 2020-10-15 15:03 | PM.PN ---
Subjective Subjective: Interval history: Patient is saturating well on 2 L which is her baseline oxygen requirement, she was very upset and emotional today after she found out that her dog because of lack of care and she did not want to ask a friend to feed her animals, she thinks she has been in the hospital for the last 7 days. Told her this is her day 2 in the hospital. She wanted to leave AMA Vitals/I&O/Wt Last Vital Signs Temp 98.4 F 10/15/20 11:14 Pulse 102 H 10/15/20 13:20 Resp 20 H 10/15/20 13:13 BP 138/81 10/15/20 11:14 Pulse Ox 92 10/15/20 13:13 10/15/20 10/15/20 10/15/20 06:59 14:59 22:59 Intake Total 240 / 2280 380 / 380 Balance 240 / 2280 380 / 380 Physical Exam Narrative: EXAM NARRATIVE: Patient was very upset and emotional when entered the room she recently found out about her dogs She did not show signs of conversational dyspnea today and was saturating well on 2 L 95% Heart rate on higher side 130s sinus tachycardia Clinically seems dehydrated and emaciated Awake alert oriented x3 GCS 15 No neurological deficits No joint swelling or signs of cellulitis Data : 10/12/20 20:40 10/12/20 20:40 A&P Assessment and plan (1) Acute on chronic respiratory failure with hypoxia and hypercapnia: Status: Acute (2) HIV (human immunodeficiency virus infection): Status: Acute Qualifiers: HIV symptom status: asymptomatic Qualified Code(s): Z21 - Asymptomatic human immunodeficiency virus [HIV] infection status (3) Nicotine addiction: Status: Chronic Qualifiers: Nicotine product type: cigarettes Substance use status: other nicotine-induced disorder Qualified Code(s): F17.218 - Nicotine dependence, cigarettes, with other nicotine-induced disorders Additional A&P Information Acute on chronic hypoxic hypercarbic restaurant failure Patient is not somnolent, hypercarbia improved on BiPAP, she keeps refusing her ABG on daily basis However clinically does not show signs of hypercapnia Currently saturating well on 2 L nasal cannula without any conversational dyspnea Discontinue steroids today HIV with CD4 count less than 50, started Bactrim every other day regimen QuantiFERON test pending Currently in isolation Labile blood sugar Discontinue steroids we will keep her on sliding scale for now currently on consistent carb diet DVT prophylaxis Lovenox DNR/DNI Attestations Medical Necessity Statement*: Anticipating discharge home once we receive QuantiFERON results Time Spent in Patient Care: 30mins Coding Level of Care Code 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
[2020-10-15 15:58] LABS: Quantiferon Mitogen 9.91 IU/mL; Quantiferon Nil 0.02 IU/mL; Quantiferon TB Gold NEGATIVE (NEGATIVE)
[2020-10-15] MEDS: sodium chloride 0.9% 250 ML IV (15:59)
--- NOTE | 2020-10-15 17:10 | PM.DCS ---
Discharge Providers Date of Admission: 10/13/20 00:41 Date of Discharge: October 15, 2020 Attending Provider at Admission: Faiza Perry MD Attending Provider at Discharge: Dhara Oneil MD Primary Care Provider: Ta Salas MD Diagnoses at Discharge Discharge Diagnosis (1) Acute on chronic respiratory failure with hypoxia and hypercapnia: Status: Acute (2) HIV (human immunodeficiency virus infection): Status: Acute Qualifiers: HIV symptom status: asymptomatic Qualified Code(s): Z21 - Asymptomatic human immunodeficiency virus [HIV] infection status (3) Nicotine addiction: Status: Chronic Qualifiers: Nicotine product type: cigarettes Substance use status: other nicotine-induced disorder Qualified Code(s): F17.218 - Nicotine dependence, cigarettes, with other nicotine-induced disorders Reason for Visit Reason for Visit: SOB Hospital Course Hospital Course HPI Adore Broussard is a 60 year old female HIV on Biktarvy, chronic hypoxemic,hypercapnic respiratory failure due to obstructive lung disease on 2-3L of o2 via NC and trilogy, noncompliant with trilogy, NSTEMI, HFpEF, came in with chief complaint of shortness of breath, on multiple recent hospital admissions for the same. She was found to have severe hypercapnic hypoxic respiratory failure. ABG 7.1 2/156/155/50 0.5 on 3 L/min nasal cannula. She has been started on BiPAP ventilation with improvement in her gas to 7.0 9/107/60 3.3/52. She was completely obtunded initially upon presentation, now with Bipap mentation is improving. She is alert awake able to have a conversation with me at this time. Insists on eating and taking a break from her BiPAP. Has had a positive COVID-19 contact and her nephew who tested positive yesterday. I am uncertain about her vaccination status. At first she tells me she got vaccinated months ago, then states it was only last week. Chest x-ray shows chronic emphysematous changes. Covid rapid antigen is negative. Hospital course Uneventful hospitalization, her hypoxic hypercarbic respiratory failure improved with BiPAP however she was reluctant to allow ABG and laboratory work-up on daily basis, her QuantiFERON test came back as negative, considering low CD4 count I have started her on Bactrim every other day regimen. Patient is stating that she has her BiPAP apparatus at home that she uses on a daily basis and is willing to quit smoking this time. She is very emotional about her dog who during her hospitalization. She suffered from steroid-induced hyperglycemia which improved with insulin regimen. Physical Exam Narrative: EXAM NARRATIVE: Patient was very upset and emotional when entered the room she recently found out about her dogs She did not show signs of conversational dyspnea today and was saturating well on 2 L 95% Heart rate on higher side 130s sinus tachycardia Clinically seems dehydrated and emaciated Awake alert oriented x3 GCS 15 No neurological deficits No joint swelling or signs of cellulitis Discharge Data Data Completed and Pending: Completed Studies During Hospitalization Category Date Time Status XR chest 1V [place] ble [id number] Urgent Exams 10/12/20 20:37 Completed Pending at discharge Category Date Time Status Arterial Blood Ga s W/O Coox AM LABS Lab 10/16/20 04:00 Ordered Basic Metabolic P korey AM LABS Lab 10/16/20 04:00 Ordered Complete Blood Co unt w/Auto AM LABS Lab 10/16/20 04:00 Ordered Fungitell Glucan Assay Routine Lab 10/13/20 05:29 Received Mycobacteria, Cul ture w/Fluor Routi ne Lab 10/13/20 03:24 Uncollected Labs from last 24 hours 10/15/20 10/15/20 10/15/20 14:48 10:53 05:56 POC Glucose 596 H* 100 209 H TB (QFT) Gold In T ube TB Test (QFT) Nil TB Test (QFT) Nigel gen TB Test Mitogen - Nil TB Test TB - Nil 10/15/20 10/14/20 10/14/20 02:39 22:43 20:18 POC Glucose 99 40 L 228 H TB (QFT) Gold In T ube TB Test (QFT) Nil TB Test (QFT) Nigel gen TB Test Mitogen - Nil TB Test TB - Nil 10/13/20 05:29 POC Glucose TB (QFT) Gold In T ube Negative TB Test (QFT) Nil 0.02 TB Test (QFT) Nigel gen 9.91 TB Test Mitogen - Nil 0.00 TB Test TB - Nil 0.00 Vitals: Last Vital Signs Temp 98.4 F 10/15/20 11:14 Pulse 122 H 10/15/20 15:55 Resp 22 H 10/15/20 15:55 BP 138/81 10/15/20 11:14 Pulse Ox 97 10/15/20 15:55 Discharge Plan Discharge Patient Disposition: Home Condition: Stable Prescriptions: New sulfamethoxazole-trimethoprim 800-160 mg Tablet 1 tab PO Q48H 30 Days Qty: 15 RF: 3 Continued montelukast [Singulair] 10 mg tablet 10 mg PO DAILY RF: 0 albuterol sulfate [ProAir HFA] 90 mcg/actuation HFA aerosol inhaler 2 puff INHALATION Q4H PRN (Reason: Shortness Of Breath) RF: 0 Biktarvy 50-200-25 mg tablet 1 tab PO DAILY RF: 0 Spiriva with HandiHaler 18 mcg Capsule, W/Inhalation Device 1 cap INHALATION DAILY RF: 0 budesonide-formoterol [Symbicort] 160-4.5 mcg/actuation Hfa Aerosol Inhaler 2 puff INHALATION BID RF: 0 (DME) glucometer See Rx Instructions .Route .MEDSUPPLY Qty: 1 RF: 0 insulin aspart U-100 [Novolog Flexpen U-100 Insulin] 100 unit/mL (3 mL) insulin pen See Rx Instructions .ROUTE .COMPLEX Qty: 15 RF: 0 sulfamethoxazole-trimethoprim 800-160 mg tablet See Rx Instructions .ROUTE .COMPLEX RF: 0 [place] Capsules 1 cap PO TID RF: 0 furosemide 40 mg tablet 40 mg PO DAILY RF: 0 atorvastatin 40 mg tablet 40 mg PO DAILY RF: 0 ipratropium-albuterol 0.5 mg-3 mg(2.5 mg base)/3 mL solution for nebulization 0.5 ml INHALATION QID PRN (Reason: Shortness Of Breath) RF: 0 prednisone 20 mg tablet 20 mg PO DAILY RF: 0 clopidogrel 75 mg tablet 75 mg PO DAILY RF: 0 aspirin 81 mg Tablet,Delayed Release (Dr/Ec) 81 mg PO DAILY RF: 0 Klor-Con M20 20 mEq tablet,ER particles/crystals 20 meq PO DAILY RF: 0 Discharge Orders: Discharge Order (Routine); Ordered 10/15/20 Ordered By: Dhara Oneil Referrals: Ta Salas MD [Primary Care Provider] - (Please call and scheudle a follow up appoinment.) Discharge Diet: Diabetic Discharge Activity: Increase activity as tolerated Patient Instructions: COPD, Sulfamethoxazole/Trimethoprim (By mouth), Cigarette Smoking and Your Health (GEN), COPD Stoplight, Opioid Safety Discharge Attestations Time Spent in Discharge Care*: less than 30 min Status at Discharge: Cognitive status at discharge: cognitively intact, Behavioral status at discharge: cooperative, Quality Metrics Clinical Quality Measures During this hospital stay, did patient experience: None Coding Level of Care Code Acute Chg FW DC note Diagnoses Acute on chronic respiratory failure with hypoxia and hypercapnia J96.21; J96.22 HIV (human immunodeficiency virus infection) Z21 HIV symptom status: asymptomatic Nicotine addiction F17.218 Nicotine product type: cigarettes Substance use status: other nicotine-induced disorder
[2020-10-15 17:18] LABS: Glucose Point of Care 380 mg/dL (70-110)
[2020-10-17 18:33] LABS: Fungitell 1-3-B Glucan Assay 34 pg/mL; Interpretation NEGATIVE
== END 2020-10-15 18:00 | disposition home or self-care (01) | DRG 189 ==
LOC: ER 22:20 → MEDSURG 10-13 00:41
PROVIDERS: Admitting Provider Student in an Organized Health Care Education/Training Program; Emergency Provider Emergency Medicine; PCP Family Medicine; Visit Provider Internal Medicine
DX: J96.22 Acute and chronic respiratory failure with hypercapnia (principal); B20 Human immunodeficiency virus [HIV] disease; J44.1 Chronic obstructive pulmonary disease with (acute) exacerbation; E44.0 Moderate protein-calorie malnutrition; Z68.1 Body mass index [BMI] 19.9 or less, adult; Z79.899 Other long term (current) drug therapy; J96.21 Acute and chronic respiratory failure with hypoxia; Z99.81 Dependence on supplemental oxygen; Z91.19 Patient's noncompliance with other medical treatment and regimen; I25.2 Old myocardial infarction; Z79.52 Long term (current) use of systemic steroids; E11.65 Type 2 diabetes mellitus with hyperglycemia; T38.0X5A Adverse effect of glucocorticoids and synthetic analogues, initial encounter; K21.9 Gastro-esophageal reflux disease without esophagitis; F17.210 Nicotine dependence, cigarettes, uncomplicated; Z79.51 Long term (current) use of inhaled steroids; Z79.4 Long term (current) use of insulin; Z79.02 Long term (current) use of antithrombotics/antiplatelets; Z79.82 Long term (current) use of aspirin
CPT/HCPCS: 36415; 36416; 36600; 71045; 80053; 82803; 82805; 82962; 83605; 83615; 83880; 84484; 85025; 85378; 86480; 87426; 87449; 93005; 94640; 94660; 94664; 96372; 96374; 96375; 99291; J1650; J1815; J2060; J2930; J3535; J7050; J7512; J7626

== ENCOUNTER 2020-10-28 10:31 | Inpatient (IN) | payer MEDICAID, SELFPAY ==
[2020-10-28] VITALS (32 sets, daily range): BP systolic 100–174; BP diastolic 69–120; PULSE 76–133; RESP 16–50; TEMP 36.5–37.2; O2SAT 52–100; BMI 16.0; BMI 16.6
--- NOTE | 2020-10-28 10:44 | ECG_ITS ---
[facility] Test Date: 2020-10-28 Pat Name: Adore Broussard Department: Room: Gender: Female Director Economic: : 1960 Requested By: Sid Gunderson Order Number: [id number] Reading MD: ZIGGY KANG Measurements Intervals [place] Rate: 126 P: 86 WI: 135 QRS: 81 QRSD: 112 T: 74 QT: 281 QTc: 408 Interpretive Statements SINUS TACHYCARDIA WITH OCCASIONAL VENTRICULAR PREMATURE COMPLEXES MODERATE INTRAVENTRICULAR CONDUCTION DELAY [110+ ms QRS DURATION] ST ELEVATION, PROBABLY EARLY REPOLARIZATION [ST ELEVATION WITH NORMALLY INFLECTED T WAVE] ABNORMAL RHYTHM ECG Compared to ECG 10/12/2020 22:57:18 Ventricular premature complex(es) now present Intraventricular conduction delay now present ST (T wave) deviation now present Early repolarization now present Atrial abnormality no longer present Electronically Signed On 10-28-2020 22:32:19 CDT by ZIGGY KANG [id number]
--- NOTE | 2020-10-28 10:44 | XRR_ITS ---
PROCEDURE INFORMATION: Exam: XR Chest Exam date and time: 10/28/2020 10:44 AM Age: 60 years old Clinical indication: Cough and dyspnea; Additional info: Dyspnea/cough TECHNIQUE: Imaging protocol: XR of the chest. Views: 1 view. COMPARISON: CR (CHEST, ) 10/12/2020 8:57 PM FINDINGS: Lungs: The lungs are somewhat hyperinflated with increased interstitial markings, likely representing COPD. No evidence of focal consolidation to suggest pneumonia. Pleural spaces: Unremarkable. No pleural effusion. No pneumothorax. Heart/Mediastinum: Stable cardiomediastinal silhouette. Bones/joints: Unremarkable. XR/XR chest 1V portable [id number] IMPRESSION: No evidence of focal consolidation. COPD changes.
--- NOTE | 2020-10-28 10:44 | W.ED.SOB ---
HPI - SOB/Dyspnea General: Chief Complaint: Shortness of Breath/Dyspnea Stated Complaint: SOB Time Seen by Provider: 10/28/20 10:43 History of Present Illness: HPI Narrative: 60-year-old female presents emergency room she is a known history of significant COPD. She is diabetic as well. She is chronically on 3 L by nasal cannula. She called EMS today because she is having increasing shortness of breath. She was treated with terbutaline and route and is feeling better. She normally on 3 L/min that increased her to 4 in route. On arrival here she is 100% on room air states her breathing is improved. Her oxygen was turned back down to 3 and she is maintaining sats around 100%. She is moderately tachypneic she has not had any fevers not had any productive cough. MD elicited complaint: shortness of breath and cough Pertinent past history: COPD and congestive heart failure Onset (ago): hour(s) Context: occurred during exertion Timing: intermittent Severity: moderate Exacerbating factors: exertion and coughing Relieving factors: oxygen, rest and bronchodilators Known history of: COPD and congestive heart failure Associated symptoms: Deny abdominal pain, chest congestion, chest pain, cough, diaphoresis, dizziness, extremity pain, fever(s), hemoptysis, lightheadedness, myalgias, nausea, orthopnea, palpitations, paresthesias, polydipsia, polyuria, rash, sense of impending doom, syncope or vomiting Treatment prior to arrival: none Review of Systems Const: Denies: fever(s) or diaphoresis ENMT: Denies: throat pain, ear or mastoid pain, nasal discharge or nasal congestion Card: Denies: chest pain, palpitations, lightheadedness, syncope or orthopnea Resp: Denies: hemoptysis or chest congestion GI: Denies: abdominal pain, nausea or vomiting : Denies: flank pain, difficulty voiding, dysuria, urinary frequency or urinary urgency Musc: Denies: extremity pain Skin/Breast: Denies: rash or pruritus Neuro: Denies: dizziness Endo: Denies: polyuria or polydipsia [facility] ED PFSH: Medical History (Updated 10/30/20 @ 07:15 by Sid Hui DO) Acute and chronic respiratory failure Acute exacerbation of chronic obstructive airways disease Acute exacerbation of chronic obstructive airways disease Acute exacerbation of chronic obstructive airways disease Acute on chronic respiratory failure with hypoxia and hypercapnia BMI less than 19,adult Chest pain CHF (congestive heart failure) Ejection fraction 57% on echocardiogram done 05/15/2020 Chronic respiratory failure with hypoxia and hypercapnia Chronic steroid use Congestive heart failure COPD (chronic obstructive pulmonary disease) Decompensated heart failure Diabetes Edema of left lower extremity GERD (gastroesophageal reflux disease) HIV (human immunodeficiency virus infection) Nicotine addiction NSTEMI (non-ST elevated myocardial infarction) 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 Protein calorie malnutrition Protein-calorie malnutrition, moderate Sinus tachycardia Troponin level elevated Surgical History H/O laparoscopy History of History of hysterectomy Family History Mother COPD (chronic obstructive pulmonary disease) Father CAD (coronary artery disease) Social History Smoking and tobacco status: current every day smoker cigarettes Years cigarettes smoked: 50 [ Other cigarette details: Hx of 1 PPD x 15 Years ] Second hand smoke exposure: Yes Alcohol intake: current Alcohol intake frequency: holidays/special occasions only Lives independently: Yes Household members: none Marital status: / Current occupational status: disabled History of recent travel: No Current gender identity: Female Female Reproductive History: Date of last menstrual period: 06/27/20 Physical Exam Const: ORIENTATION/CONSCIOUSNESS: Yes awake HENMT: COMMON NORMALS: normocephalic, atraumatic and hearing grossly normal bilaterally HEAD & SCALP: normocephalic and atraumatic Neck/C-Spine: COMMON NORMALS: no JVD Resp: COMMON NORMALS: normal respiratory effort, No retractions, No use of accessory muscles and clear to auscultation bilaterally AUSCULTATION: clear to auscultation bilaterally Cardio: COMMON NORMALS: no JVD, regular rate, regular rhythm and No murmurs present (Cardio) RATE: regular rate RHYTHM: regular rhythm GI: COMMON NORMALS: Soft to palpation and No hepatosplenomegaly present AUSCULTATION: Yes normoactive bowel sounds PALPATION: Yes Soft to palpation, No Tenderness to palpation present (GI), No Guarding due to palpation present (GI) and Yes No hepatosplenomegaly present Extremity: COMMON NORMALS: normal to inspection, capillary refill normal, no clubbing, cyanosis or edema, no calf tenderness and no pedal edema Skin: COMMON NORMALS: no rashes or lesions noted GENERAL SKIN EXAM: no rashes or lesions noted Course Vital Signs: Vital signs: Vital Signs Temperature 98.7 F 10/30/20 03:20 Pulse Rate 101 H 10/30/20 03:50 Respiratory Rate 17 10/30/20 03:20 Blood Pressure 112/63 10/30/20 03:20 Pulse Oximetry 94 10/30/20 03:50 MDM - SOB/Dyspnea MDM Narrative: Medical decision making narrative: Admit for acute exacerbation end-stage COPD discussed with hospitalist orders written Lab Data: Labs: Lab Results 10/28/20 10/28/20 10/28/20 Range/Units 10:52 11:05 11:05 WBC 7.4 (4.0-10.0) 10^3/ uL RBC 4.25 (4.1-5.3) 10^6/u L Hgb 11.9 (11.5-15.3) g/dL Hct 41.1 (37.0-47.0) % MCV 96.7 (81-99) fL MCH 28.0 (28.0-34.0) pg MCHC 29.0 L (30.0-36.0) g/dL RDW 13.3 (12.1-15.1) % Plt Count 188 (130-400) 10^3/c mm MPV 10.5 H (7.4-10.4) fL Neut % (Auto) 70.0 % Lymph % (Auto) 21.9 % [place] % (Auto) 6.2 % Eos % (Auto) 0.8 % Baso % (Auto) 0.7 % Neut # (Auto) 5.20 (1.8-7.7) 10^3/u L Lymph # (Auto) 1.6 (0.8-4.8) 10^3/u L [place] # (Auto) 0.5 (0.2-0.9) 10^3/u L Eos # (Auto) 0.1 (0.0-0.8) 10^3/u L Baso # (Auto) 0.1 (0.0-0.1) 10^3/u L Nucleated RBC % (a uto) 0 % Nucleated RBCs # 0.0 /100WBC Specimen Type Arterial Sample Site Brachial, left ABG pH 7.26 L (7.35-7.45) ABG pCO2 116.0 H* (35-45) mmHg ABG pO2 226.0 H (80.0-100.0) mmH g ABG HCO3 52.5 H (22-26) mmol/L ABG O2 Saturation > 100.0 ABG Base Excess 20.6 H (-2.0-2.0) mmol/ L Adrian Test N/a A-a O2 Gradient Not Reportable Hematocrit 34.4 L (37-47) % Hgb O2 Saturation 98.1 (95-100) % Carboxyhemoglobin 1.0 (0.4-20.1) %THgb Methemoglobin 1.0 (0.4-1.5) % Total Hemoglobin 11.2 L (12-16) g/dL Sodium 141.0 138 (131-143) mmol/L Potassium 4.1 4.5 (3.5-5.0) mmol/L Glucose 115.0 104 (70-115) mg/dL Ionized Calcium 1.3 (1.1-1.4) mmol/L O2 Delivery Device Nc O2 Liters/Min 3.0 % FiO2 32.0 % 3D Artist ID Amh Chloride 85 L (98-107) mmol/L Carbon Dioxide 45 H* (22-29) mmol/L Anion Gap 12.5 (5-19) BUN 19 (6-20) mg/dL Creatinine 0.5 (0.5-0.9) mg/dL GFR Calculation 126.3 (90-130) mL/min Calculated Osmolal ity 289 (285-295) mOsm/k g Calcium 9.0 (8.5-10.5) mg/dL Total Bilirubin 0.8 (0.15-1.2) mg/dL AST 25 (0-32) U/L ALT 20 (0-33) U/L Alkaline Phosphata se 53 (35-105) IU/L Total Protein 5.6 L (6.6-8.7) g/dL Albumin 3.9 (3.5-5.2) g/dL Globulin 1.7 (1.3-4.6) g/dL Urine Color (Yellow) Urine Appearance (CLEAR) Urine pH (5-7) Ur Specific Gravit y (1.005-1.030) Urine Protein (Negative) Urine Glucose (UA) (Normal) Urine Ketones (Negative) Urine Blood (Negative) Urine Nitrate (Negative) Urine Bilirubin (Negative) Urine Urobilinogen (Negative) mg/dL Ur Leukocyte [place] ase (Negative) Urine RBC (0-2) /hpf Urine WBC (0-5) /hpf Ur Squamous Epith Cells (0-5) /hpf Ur Transition Epit h Cell /hpf Amorphous Sediment Urine Bacteria (NONE) /hpf Hyaline Casts /lpf Urine Mucus /hpf 10/28/20 Range/Units 11:22 WBC (4.0-10.0) 10^3/ uL RBC (4.1-5.3) 10^6/u L Hgb (11.5-15.3) g/dL Hct (37.0-47.0) % MCV (81-99) fL MCH (28.0-34.0) pg MCHC (30.0-36.0) g/dL RDW (12.1-15.1) % Plt Count (130-400) 10^3/c mm MPV (7.4-10.4) fL Neut % (Auto) % Lymph % (Auto) % [place] % (Auto) % Eos % (Auto) % Baso % (Auto) % Neut # (Auto) (1.8-7.7) 10^3/u L Lymph # (Auto) (0.8-4.8) 10^3/u L [place] # (Auto) (0.2-0.9) 10^3/u L Eos # (Auto) (0.0-0.8) 10^3/u L Baso # (Auto) (0.0-0.1) 10^3/u L Nucleated RBC % (a uto) % Nucleated RBCs # /100WBC Specimen Type Sample Site ABG pH (7.35-7.45) ABG pCO2 (35-45) mmHg ABG pO2 (80.0-100.0) mmH g ABG HCO3 (22-26) mmol/L ABG O2 Saturation ABG Base Excess (-2.0-2.0) mmol/ L Adrian Test A-a O2 Gradient Hematocrit (37-47) % Hgb O2 Saturation (95-100) % Carboxyhemoglobin (0.4-20.1) %THgb Methemoglobin (0.4-1.5) % Total Hemoglobin (12-16) g/dL Sodium (131-143) mmol/L Potassium (3.5-5.0) mmol/L Glucose (70-115) mg/dL Ionized Calcium (1.1-1.4) mmol/L O2 Delivery Device O2 Liters/Min % FiO2 % 3D Artist ID Chloride (98-107) mmol/L Carbon Dioxide (22-29) mmol/L Anion Gap (5-19) BUN (6-20) mg/dL Creatinine (0.5-0.9) mg/dL GFR Calculation (90-130) mL/min Calculated Osmolal ity (285-295) mOsm/k g Calcium (8.5-10.5) mg/dL Total Bilirubin (0.15-1.2) mg/dL AST (0-32) U/L ALT (0-33) U/L Alkaline Phosphata se (35-105) IU/L Total Protein (6.6-8.7) g/dL Albumin (3.5-5.2) g/dL Globulin (1.3-4.6) g/dL Urine Color Yellow (Yellow) Urine Appearance Sl hazy (CLEAR) Urine pH 5 (5-7) Ur Specific Gravit y 1.025 (1.005-1.030) Urine Protein 1+ H (Negative) Urine Glucose (UA) Norm (Normal) Urine Ketones 3+ H (Negative) Urine Blood 2+ H (Negative) Urine Nitrate Negative (Negative) Urine Bilirubin 1+ H (Negative) Urine Urobilinogen 1 H (Negative) mg/dL Ur Leukocyte [place] ase Negative (Negative) Urine RBC 5-10 H (0-2) /hpf Urine WBC 5-10 H (0-5) /hpf Ur Squamous Epith Cells 25-40 H (0-5) /hpf Ur Transition Epit h Cell 0-4 /hpf Amorphous Sediment Not Reportable Urine Bacteria Trace (NONE) /hpf Hyaline Casts 0-4 H /lpf Urine Mucus 1+ /hpf Discharge Plan Discharge Patient Disposition: Admitted As Inpatient Admit Provider: Delon Jaimes Clinical Impression: Acute exacerbation of chronic obstructive airways disease Condition: Stable Coding Level of Care Code ED Community Organization Aide for Chg Fwd Exam Comprehensive
[2020-10-28 11:04] LABS: ABG PH Result 7.26 (7.35-7.45); Arterial Blood Gas Hematocrit 34.4 % (37-47); Base Excess ABG 20.6 mmol/L (-2.0-2.0); Blood Gas Operator Identificat AMH; Blood Gas Sample Site Brachial, left; Blood Gas Sample Type Arterial; HCO3 ABG 52.5 mmol/L (22-26); HGB O2 Sat 98.1 % (95-100); Ionized Calcium Level - ABG 1.3 mmol/L (1.1-1.4); Oxygen Device NC; Oxygen Saturation ABG > 100.0; Potassium Level - ABG 4.1 mmol/L (3.5-5.0); Total Hemoglobin 11.2 g/dL (12-16)
[2020-10-28 11:29] LABS: Basophils # 0.1 10^3/uL (0.0-0.1); Basophils % 0.7 %; Eosinophils # 0.1 10^3/uL (0.0-0.8); Eosinophils % 0.8 %; Hematocrit 41.1 % (37.0-47.0); Hemoglobin 11.9 g/dL (11.5-15.3); Lymphocytes # 1.6 10^3/uL (0.8-4.8); Lymphocytes % 21.9 %; Mean Corpuscular Volume 96.7 fL (81-99); Mean Platelet Volume 10.5 fL (7.4-10.4); Monocytes # 0.5 10^3/uL (0.2-0.9); Monocytes % 6.2 %; Nucleated Red Blood Cells % 0 %; Platelet Count 188 10^3/cmm (130-400); Red Blood Count 4.25 10^6/uL (4.1-5.3); Red Cell Distribution Width 13.3 % (12.1-15.1); White Blood Count 7.4 10^3/uL (4.0-10.0)
--- NOTE | 2020-10-28 11:45 | PC.PHAR ---
PT STATES SHE TAKES CARE OF HER OWN MEDICATIONS-PT UNABLE TO VERIFY HER MEDS-PT STATES SHE DOES TAKE INSULIN AND GETS IT FROM [facility] STATES THEY LAST FILLED ON 06/16/20-EXT MED HISTORY SHOWS PREDNISONE 5MG TAKE 10MG DAILY FILLED ON 10/06/20 30D/S DISCHARGE PAPERS FROM 10/05/20 SHOWS THIS MEDICATION TO BE DCED-ISOSORBIDE MONO ER 30MG daily last filled on 09/03/20 30d/s-medications entered are meds that show have been filled recently on ext med history-notes are made in the pharmacy comments
[2020-10-28 12:09] LABS: Alanine Aminotransferase 20 U/L (0-33); Albumin Level 3.9 g/dL (3.5-5.2); Alkaline Phosphatase 53 IU/L (35-105); Aspartate Amino Transferase 25 U/L (0-32); Blood Urea Nitrogen 19 mg/dL (6-20); Chloride 85 mmol/L (98-107); Globulin 1.7 g/dL (1.3-4.6); Glomerular Filtration Rate 126.3 mL/min (90-130); Glucose 104 mg/dL (65-115); Osmolality Calculated 289 mOsm/kg (285-295); Sodium 138 mmol/L (136-145); Total Bilirubin 0.8 mg/dL (0.15-1.2); Total Protein 5.6 g/dL (6.6-8.7)
[2020-10-28 12:14] LABS: Anion Gap 12.5 (5-19); Carbon Dioxide 45 mmol/L (22-29); Potassium 4.5 mmol/L (3.5-5.1)
[2020-10-28 12:38] LABS: Add Urine Microscopic? YES; Bilirubin Urine 1+ (Negative); Blood Urine 2+ (Negative); Glucose Urine UA Norm (Normal); Ketones Urine 3+ (Negative); Leukocyte Esterase Urine Negative (Negative); Nitrate Urine Negative (Negative); Protein Urine 1+ (Negative); Specific Gravity, Urine 1.025 (1.005-1.030); Urine Appearance SL Hazy (CLEAR); Urine Color Yellow (Yellow); Urobilinogen Urine 1 mg/dL (Negative); pH Urine 5 (5-7)
[2020-10-28 12:47] LABS: Squamous Epithelial Cell Urine 25-40 /hpf (0-5); Transitional Epi Cells Urine 0-4 /hpf
[2020-10-28 12:48] LABS: Bacteria Urine TRACE /hpf; Hyaline Casts Urine 0-4 /lpf; Mucus Urine 1+ /hpf
[2020-10-28 12:49] LABS: Add Urine Culture? No
[2020-10-28] MEDS: LORazepam 2 mg/mL INJ 1 mL 1 MG IVP (14:31)
--- NOTE | 2020-10-28 16:27 | PM.HP ---
Providers/Chief Complaint Admitting Physician: Delon Jaimes Primary Care Provider: Ta Salas MD Chief Complaint: SOB History of Present Illness 60-year-old lady with history of HIV, COPD, on chronic oxygen 2-3 L, trilogy at home, history of CAD, current smoker, was brought to ER due to shortness of breath, with noted acute hypercapnic and hypoxic respiratory failure with COPD exacerbation. Chest x-ray without evidence of focal consolidation. She is started on BiPAP support. Received a dose of Solu-Medrol. Ativan. Doing a little bit better so far. Reports productive cough with yellow-green sputum. She currently smokes 1 pack/day. Her knees reports in addition to cigarettes she also smokes methamphetamine. She states her and her sister have been trying to get her to go to assisted living. Discussing with her niece, Charo Guerin, [phone] per recommendation of her sister who states she is more familiar with her care, she is not aware that patient is following with infectious disease. She is not aware that she is wearing her BiPAP at home which on review of ER notes is what her trilogy was exchanged for after she had not used the prior machine. Review of Systems Const: Denies: fever(s) or body aches Eyes: Denies: change in vision or photophobia ENMT: Denies: throat pain, enlarged tonsils, odynophagia, ear or mastoid pain, nasal discharge or nasal congestion Card: Reports: swelling of feet/ankles; Denies: chest pain, palpitations, lightheadedness, syncope or orthopnea Resp: Denies: hemoptysis or chest congestion GI: Denies: abdominal pain, nausea, vomiting, dysphagia or diarrhea : Denies: flank pain, difficulty voiding, dysuria, urinary frequency or urinary urgency Musc: Reports: extremity swelling (BL ankles); Denies: extremity pain or joint warmth Skin/Breast: Denies: rash or pruritus Neuro: Denies: headache(s), dizziness or vertigo Endo: Denies: polyuria or polydipsia Yazan/Lymph: Denies: easy bleeding or purpura All/Imm: Denies: urticaria, throat swelling or tongue swelling Medications/Allergies Home Medications Medication Instructions Recorded Confirmed Last Taken Type albuterol sulfate 90 mcg/actuation 2 puff INHALATION Q4H PRN 10/03/19 10/28/20 Unknown History aerosol inhaler montelukast 10 mg tablet 10 mg PO DAILY 10/03/19 10/28/20 08/28/20 History Biktarvy 1 tab PO DAILY 04/23/20 10/28/20 09/18/20 History Spiriva with HandiHaler 1 cap INHALATION DAILY 05/05/20 10/28/20 09/18/20 History budesonide-formoterol [Symbicort] 2 puff INHALATION BID 05/05/20 10/28/20 Unknown History glucometer #1 ea 06/16/20 10/28/20 Unknown Rx aspirin 81 mg PO DAILY 10/13/20 10/28/20 Unknown History atorvastatin 40 mg PO DAILY 10/13/20 10/28/20 Unknown History clopidogrel 75 mg PO DAILY 10/13/20 10/28/20 Unknown History furosemide 40 mg PO DAILY 10/13/20 10/28/20 Unknown History ipratropium-albuterol 3 ml INHALATION Q6H PRN 10/13/20 10/28/20 Unknown History sulfamethoxazole-trimethoprim 1 tab PO Q48H 30 Days #15 tab 10/15/20 10/28/20 Unknown Rx Novolog Flexpen U-100 Insulin See Rx Instructions .ROUTE .COMPLEX 10/28/20 10/28/20 Unknown History carvedilol 3.125 mg PO BID 10/28/20 10/28/20 Unknown History ipratropium-albuterol [Combivent 1 puff INHALATION QID 10/28/20 10/28/20 Unknown History Respimat] potassium chloride [Klor-Con M20] 20 meq PO DAILY 10/28/20 10/28/20 Unknown History Allergies Allergy/AdvReac Type Severity Reaction Status Date / Time Penicillins Allergy ALGY-Difficulty Verified 10/12/20 20:16 Breathing phenobarbital Allergy ALGY-Hives Verified 10/12/20 20:16 Tetanus Vaccines and Toxoid Allergy ALGY-Hives Verified 10/12/20 20:16 PFSH Acute PFSH: Medical History (Updated 10/28/20 @ 16:44 by Delon Jaimes MD) Acute and chronic respiratory failure Acute exacerbation of chronic obstructive airways disease Acute exacerbation of chronic obstructive airways disease Acute exacerbation of chronic obstructive airways disease Acute on chronic respiratory failure with hypoxia and hypercapnia BMI less than 19,adult Chest pain CHF (congestive heart failure) Ejection fraction 57% on echocardiogram done 05/15/2020 Chronic respiratory failure with hypoxia and hypercapnia Chronic steroid use Congestive heart failure COPD (chronic obstructive pulmonary disease) Decompensated heart failure Diabetes Edema of left lower extremity GERD (gastroesophageal reflux disease) HIV (human immunodeficiency virus infection) Nicotine addiction NSTEMI (non-ST elevated myocardial infarction) 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 Protein calorie malnutrition Protein-calorie malnutrition, moderate Sinus tachycardia Troponin level elevated Surgical History H/O laparoscopy History of History of hysterectomy Family History Mother COPD (chronic obstructive pulmonary disease) Father CAD (coronary artery disease) Social History Smoking and tobacco status: current every day smoker cigarettes Years cigarettes smoked: 50 [ Other cigarette details: Hx of 1 PPD x 15 Years ] Second hand smoke exposure: Yes Alcohol intake: current Alcohol intake frequency: holidays/special occasions only Lives independently: Yes Household members: none Marital status: / Current occupational status: disabled History of recent travel: No Current gender identity: Female Female Reproductive History: Date of last menstrual period: 06/27/20 Vitals/I&O/Wt Last Vital Signs Temp 98.6 F 10/28/20 10:47 Pulse 105 H 10/28/20 16:00 Resp 16 10/28/20 16:00 BP 106/69 10/28/20 16:00 Pulse Ox 100 10/28/20 16:00 Weight last 48 hrs Weight 39.916 kg Physical Exam Const: COMMON NORMALS: no acute distress and patient oriented x3 HENMT: COMMON NORMALS: oropharynx normal Neck/C-Spine: COMMON NORMALS: no JVD Resp: COMMON NORMALS: normal respiratory effort and clear to auscultation bilaterally AUSCULTATION: clear to auscultation bilaterally Cardio: COMMON NORMALS: no JVD, regular rhythm, S1 normal heart sound present, S2 normal heart sound present and No murmurs present (Cardio) RHYTHM: regular rhythm HEART SOUNDS: S1 normal heart sound present and S2 normal heart sound present GI: COMMON NORMALS: Normal to inspection, nondistended, normoactive bowel sounds present, Soft to palpation and non-tender PALPATION: Yes Soft to palpation Extremity: COMMON NORMALS: no joint enlargement and no pedal edema Neuro: COMMON NORMALS: patient oriented x3 and moves all extremities Skin: COMMON NORMALS: no rashes or lesions noted GENERAL SKIN EXAM: no rashes or lesions noted Urinary Catheter Management^: Angulo: Cath Placed During This Visit: yes Urinary Catheter Date of Insertion: 10/28/20 Urinary Catheter Time of Insertion: 11:46 Data : 10/28/20 11:05 10/28/20 11:05 A&P Assessment and plan (1) Acute exacerbation of chronic obstructive airways disease: Does not appear to have focal pneumonia. COPD exacerbation, severe, with purulent sputum production, dyspnea, requiring BiPAP support. Continue steroids, empiric antibiotic treatment. Nebs. Inhaled steroid. Sputum cultures requested. Rapid COVID 19. Status: Acute Additional A&P Information Chronic lower extremity edema: Continue chronic Lasix. Smoking addiction: Continues to smoke 1 pack/day. Per report also smokes methamphetamine. Lack of adherence with therapy, previously with trilogy which was taken away, replaced by BiPAP. Her nieces are not aware of her using the BiPAP. Chronic respiratory failure HIV: Reports has not seen her infectious disease doctor in some time. Encourage follow-up with specialist. Continue Biktarvy if available. Continue chronic Bactrim prophylaxis. Malnutrition: Add protein supplementation. DM2 Other chronic medical conditions noted Disposition planning: Her niece is of been trying to convince her to go to assisted living. Attestations Medical Necessity Statement*: Admission of over 2 midnights is admitted for assessment management of severe COPD exacerbation, hypoxic and hypercapnic respiratory failure. Coding Level of Care Code Acute Draft Roller Picker for [place] Dickerson Diagnoses Acute exacerbation of chronic obstructive airways disease J44.1
[2020-10-28 18:34] LABS: Glucose Point of Care 151 mg/dL (70-110)
[2020-10-28] MEDS: heparin 5,000 unit/mL INJ 1 mL 5000 UNIT SUBCUT (19:24)
[2020-10-28] MEDS: carvedilol 3.125 mg Tablet PO (19:25)
[2020-10-28 19:28] LABS: SARS Covid-2 Antigen Negative (Negative)
[2020-10-28] MEDS: sulfamethoxazole-trimeth DS 160-800 mg Tablet 1 TAB PO (19:28)
[2020-10-28] MEDS: FUROsemide 10 mg/mL SDV 4mL 40 MG IVP (19:32)
[2020-10-28] MEDS: levofloxacin-dextrose 5 % 750 MG/150 ML PREMIX 100 MG IV (20:42)
[2020-10-28 21:24] LABS: Glucose Point of Care 141 mg/dL (70-110)
[2020-10-29] VITALS (16 sets, daily range): BP systolic 106–153; BP diastolic 67–82; PULSE 28–119; RESP 16–38; TEMP 36.3–37; O2SAT 91–100
--- NOTE | 2020-10-29 05:53 | PC.NURSE ---
Shift Note Frequent safety and comfort rounds continue. Orders and/or nursing care completed as indicated. Patient monitored for response to intervention and treatment(s). Education provided includes possible increase in blood pressure related to medication Solumedrol with patient giving verbal understanding.Patient currently resting comfortably in bed. Will continue to monitor.
[2020-10-29 06:04] LABS: Basophils % 0.5 %; Hematocrit 31.7 % (37.0-47.0); Hemoglobin 9.6 g/dL (11.5-15.3); Lymphocytes # 0.4 10^3/uL (0.8-4.8); Lymphocytes % 21.9 %; Mean Corpuscular HGB Conc 30.3 g/dL (30.0-36.0); Mean Corpuscular Hemoglobin 27.5 pg (28.0-34.0); Mean Corpuscular Volume 90.8 fL (81-99); Mean Platelet Volume 10.8 fL (7.4-10.4); Monocytes % 1.5 %; Neutrophils # 1.48 10^3/uL (1.8-7.7); Neutrophils % 75.6 %; Nucleated Red Blood Cells % 0 %; Platelet Count 171 10^3/cmm (130-400); Red Blood Count 3.49 10^6/uL (4.1-5.3)
[2020-10-29 06:17] LABS: Blood Urea Nitrogen 22 mg/dL (6-20); Calcium 7.9 mg/dL (8.5-10.5); Chloride 84 mmol/L (98-107); Glomerular Filtration Rate 102.3 mL/min (90-130); Glucose 192 mg/dL (65-115); Osmolality Calculated 295 mOsm/kg (285-295); Potassium 4.1 mmol/L (3.5-5.1); Sodium 138 mmol/L (136-145)
[2020-10-29 06:53] LABS: Glucose Point of Care 226 mg/dL (70-110)
[2020-10-29 07:28] LABS: Anion Gap 8.1 (5-19)
[2020-10-29 08:07] LABS: Carbon Dioxide 50 mmol/L (22-29)
[2020-10-29] MEDS: atorvastatin 40 mg Tablet PO (09:24)
[2020-10-29] MEDS: montelukast sodium 10 mg Tablet PO (09:24)
[2020-10-29] MEDS: clopidogrel 75 mg Tablet PO (09:24)
[2020-10-29] MEDS: aspirin 81 mg EC Tablet PO (09:24)
[2020-10-29] MEDS: carvedilol 3.125 mg Tablet PO ×2 (09:24→17:34)
[2020-10-29] MEDS: heparin 5,000 unit/mL INJ 1 mL 5000 UNIT SUBCUT ×2 (09:25→21:06)
[2020-10-29] MEDS: budesonide 0.5 mg/2 mL Neb INHALATION (09:27)
[2020-10-29] MEDS: ipratropium-albuterol 3 mL Neb INHALATION ×3 (09:28→16:44)
[2020-10-29] MEDS: FUROsemide 10 mg/mL SDV 4mL 40 MG IVP (09:49)
--- NOTE | 2020-10-29 10:36 | PC.CHAP ---
Pastoral Care Encounter/Spiritual Assessment Type of Contact [] Declined usability specialist visit [] Patient/Family/Request visit [] Outpatient visit [] Follow-up visit [] Physician referral [] Code/Alert [x] Routine visit [] Staff referral [] Actively dying [] Patient sleeping [] Family support [] [] Out of room [] Palliative care [] [x] Receiving care in room [] Pre-surgical visit [] Trauma [] Long length of stay [] ICU visit [] Other: Relational/Emotional Strength [] Patient feels connected with others/family/visitors/staff [] Distress [] Loneliness/isolation [] Abandonment Spirituality of Patient [] Person of Thea [] Attends Advent of their Thea [] Believes in Prayer [] Reads Bible or Pentecostalism materials [] There are Spiritual issues to be addressed Lacquerer Interventions [] Prayer [] Active listening [] Non-anxious presence [] Spiritual/emotional support [] Crisis/trauma care [] Spiritual counseling [] Bereavement support [] Provided bereavement packet [] Provided Bible/devotional materials [] Provided toy/stuffed animal, coloring book to patient or family member [] Provided Communion [] Anointing/[place] [] Salvation [] Completed spiritual assessment [] Other: Impact on Illness or Injury [] Angry [] Fearful [] Anxious [] Often cries [] Exhaustion [] Unable to work [] Unable to attend temple [] Unable to walk/stand [] Unable to read [] Unable to drive [] Unable to eat/drink [] Unable to sleep [] Unable to be with family [] Patient intubated [] Other: Summary Time spent with patient
[2020-10-29 11:52] LABS: Glucose Point of Care 274 mg/dL (70-110)
--- NOTE | 2020-10-29 12:47 | PM.PN ---
Subjective Subjective: Interval history: When asked how she is doing, replies still alive . She is feeling little bit better. She is coughing. Discussed with her and again encouraged smoking cessation. She states she realizes she needs to stop. Asking her whether she smokes anything else, first denies. Asking again regarding whether she smokes methamphetamine, states after a pause a little . Vitals/I&O/Wt Last Vital Signs Temp 97.8 F 10/29/20 12:00 Pulse 90 10/29/20 12:30 Resp 22 H 10/29/20 12:15 BP 122/67 10/29/20 12:00 Pulse Ox 93 10/29/20 12:26 10/28/20 10/29/20 10/29/20 22:59 06:59 14:59 Intake Total 390 / 390 Output Total 1200 / 1200 Balance -810 / -810 Weight last 48 hrs Weight 38.192 kg Weight 39.916 kg Weight 39.916 kg Physical Exam Const: COMMON NORMALS: no acute distress and patient oriented x3 GENERAL APPEARANCE: cooperative NUTRITIONAL APPEARANCE: cachectic and thin HENMT: COMMON NORMALS: oropharynx normal Neck/C-Spine: COMMON NORMALS: no JVD Resp: AUSCULTATION: diminished lung sounds Cardio: COMMON NORMALS: no JVD, regular rhythm, S1 normal heart sound present, S2 normal heart sound present and No murmurs present (Cardio) RHYTHM: regular rhythm HEART SOUNDS: S1 normal heart sound present and S2 normal heart sound present GI: COMMON NORMALS: Normal to inspection, nondistended, normoactive bowel sounds present, Soft to palpation and non-tender PALPATION: Yes Soft to palpation Extremity: COMMON NORMALS: no joint enlargement and no pedal edema Neuro: COMMON NORMALS: patient oriented x3 and moves all extremities Skin: COMMON NORMALS: no rashes or lesions noted GENERAL SKIN EXAM: no rashes or lesions noted Urinary Catheter Management^: Agnulo: Cath Placed During This Visit: yes Reason for Continuing Indwelling Catheter: Other Urinary Catheter Date of Insertion: 10/28/20 Urinary Catheter Time of Insertion: 11:46 Data : 10/29/20 04:47 10/29/20 04:47 A&P Assessment and plan (1) Acute exacerbation of chronic obstructive airways disease: Severe exacerbation of COPD. Slightly better. Transiently weaning of BiPAP. Continue intermittent BiPAP support, nasal cannula. Continue antibiotic, steroid. Follow-up cultures. Continue nebs, inhaled steroid. Rapid COVID-19 negative. At home reports currently has a BiPAP machine which is functioning. Encouraged her to use it. Status: Acute Additional A&P Information Chronic lower extremity edema: Continue chronic Lasix. Smoking addiction: Continues to smoke 1 pack/day. Also smokes occasional methamphetamine. Encourage cessation and abstinence. Lack of adherence with therapy, previously with trilogy which was taken away, replaced by BiPAP. Her nieces are not aware of her using the BiPAP. Chronic respiratory failure HIV: Reports has not seen her infectious disease doctor in some time. Encourage follow-up with specialist. Continue Biktarvy if available. Continue chronic Bactrim prophylaxis. Malnutrition: Add protein supplementation. DM2 Other chronic medical conditions noted Disposition planning: Her niece is of been trying to convince her to go to assisted living. Attestations Medical Necessity Statement*: Continue admission for assessment management of severe COPD exacerbation, acute on chronic hypoxic and hypercapnic respiratory failure. Coding Level of Care Code Acute Animal Bounty Hunter for [place] Dickerson Diagnoses Acute exacerbation of chronic obstructive airways disease J44.1
--- NOTE | 2020-10-29 15:28 | PC.RESP ---
Smoking Cessation and Pulmonary Rehab information sent to patient.
--- NOTE | 2020-10-29 16:35 | PC.NURSE ---
Shift Note Frequent safety and comfort rounds continue. Orders and/or nursing care completed as indicated. Pt became anxious today requesting something to help. Dr. Jaimes notified and 1mg of xanax ordered PRN TID. Pt given the PRN order of xanax and noted to be, feeling more at ease Pt placed on BIPAP for most of the afternoon and tolerated well. Critical Lab reported this am, noted to be CO2 of 50. At Shift change this am, the night nurse stated Ms. Broussard refused to wear her bipap over night. Physician notified. Pt educated on importance of bipap use. Patient monitored for response to intervention and treatment. Education provided includes use of bipap and anxiety relieving activities. Patient verbalized understanding, but will have to be reeducated due to hx of noncompliance. Will continue to monitor.
[2020-10-29 16:58] LABS: Glucose Point of Care 183 mg/dL (70-110)
[2020-10-29 20:58] LABS: Glucose Point of Care 285 mg/dL (70-110)
[2020-10-29] MEDS: levofloxacin-dextrose 5 % 750 MG/150 ML PREMIX 100 MG IV (21:05)
[2020-10-30] VITALS (8 sets, daily range): BP systolic 112–142; BP diastolic 63–76; PULSE 101–107; RESP 17–18; TEMP 36.9–37.1; O2SAT 86–97
[2020-10-30 05:39] LABS: Hematocrit 31.5 % (37.0-47.0); Hemoglobin 9.9 g/dL (11.5-15.3); Lymphocytes # 0.4 10^3/uL (0.8-4.8); Lymphocytes % 11.8 %; Mean Corpuscular HGB Conc 31.4 g/dL (30.0-36.0); Mean Corpuscular Hemoglobin 27.7 pg (28.0-34.0); Mean Corpuscular Volume 88.2 fL (81-99); Mean Platelet Volume 10.6 fL (7.4-10.4); Monocytes # 0.2 10^3/uL (0.2-0.9); Monocytes % 5.5 %; Neutrophils # 2.85 10^3/uL (1.8-7.7); Neutrophils % 82.4 %; Nucleated Red Blood Cells % 0 %; Platelet Count 154 10^3/cmm (130-400); Red Blood Count 3.57 10^6/uL (4.1-5.3); Red Cell Distribution Width 12.8 % (12.1-15.1); White Blood Count 3.5 10^3/uL (4.0-10.0)
--- NOTE | 2020-10-30 05:44 | PC.NURSE ---
Shift Note Frequent safety and comfort rounds continue. Orders and/or nursing care completed as indicated. Patient monitored for response to intervention and treatment(s). Education provided includes[how important to her care wearing a BIPAP at night is]. Patient and/or sales representative womens health[stated that she was done with the BIPAP and would not be wearing it any further this hospital stay]. Patient has continued to request and eat any food that she can get her hands. Despite being an active diabetic.
[2020-10-30 06:04] LABS: Anion Gap 6.2 (5-19); Blood Urea Nitrogen 15 mg/dL (6-20); Calcium 7.8 mg/dL (8.5-10.5); Chloride 78 mmol/L (98-107); Glomerular Filtration Rate 102.3 mL/min (90-130); Glucose 282 mg/dL (65-115); Osmolality Calculated 281 mOsm/kg (285-295); Potassium 3.2 mmol/L (3.5-5.1); Sodium 130 mmol/L (136-145)
[2020-10-30 06:25] LABS: Carbon Dioxide 49 mmol/L (22-29)
[2020-10-30 07:07] LABS: Glucose Point of Care 354 mg/dL (70-110)
[2020-10-30] MEDS: ipratropium-albuterol 3 mL Neb INHALATION (07:55)
[2020-10-30] MEDS: budesonide 0.5 mg/2 mL Neb INHALATION (07:55)
[2020-10-30] MEDS: FUROsemide 10 mg/mL SDV 4mL 40 MG IVP (08:37)
[2020-10-30] MEDS: heparin 5,000 unit/mL INJ 1 mL 5000 UNIT SUBCUT (09:39)
[2020-10-30] MEDS: potassium chloride ER 20 mEq Tablet PO (09:39)
[2020-10-30] MEDS: clopidogrel 75 mg Tablet PO (09:40)
[2020-10-30] MEDS: atorvastatin 40 mg Tablet PO (09:40)
[2020-10-30] MEDS: montelukast sodium 10 mg Tablet PO (09:40)
[2020-10-30] MEDS: aspirin 81 mg EC Tablet PO (09:40)
[2020-10-30] MEDS: carvedilol 3.125 mg Tablet PO (09:40)
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
[2020-10-30 12:05] LABS: Glucose Point of Care 326 mg/dL (70-110)
--- NOTE | 2020-10-30 14:19 | PC.NURSE ---
pt discharge instructions gone over with pt, encouraged no smoking or meth use while using oxygen and encouraged to stop pt verbalized understanding. pt did not have any questions at this time, informed her to call if she had any questions when getting home.
== END 2020-10-30 13:45 | disposition home or self-care (01) | DRG 191 ==
LOC: ER 10:56 → MEDSURG 15:40
PROVIDERS: Admitting Provider Internal Medicine; Emergency Provider Family Medicine; PCP Family Medicine; Visit Provider Internal Medicine
DX: J44.1 Chronic obstructive pulmonary disease with (acute) exacerbation (principal); B20 Human immunodeficiency virus [HIV] disease; E44.0 Moderate protein-calorie malnutrition; Z68.1 Body mass index [BMI] 19.9 or less, adult; J96.12 Chronic respiratory failure with hypercapnia; J96.11 Chronic respiratory failure with hypoxia; E11.9 Type 2 diabetes mellitus without complications; Z99.81 Dependence on supplemental oxygen; I50.9 Heart failure, unspecified; Z79.52 Long term (current) use of systemic steroids; K21.9 Gastro-esophageal reflux disease without esophagitis; I25.2 Old myocardial infarction; F17.210 Nicotine dependence, cigarettes, uncomplicated; I25.10 Atherosclerotic heart disease of native coronary artery without angina pectoris; F15.90 Other stimulant use, unspecified, uncomplicated; Z79.51 Long term (current) use of inhaled steroids; Z79.02 Long term (current) use of antithrombotics/antiplatelets; Z79.4 Long term (current) use of insulin
CPT/HCPCS: 36415; 36416; 36600; 51702; 71045; 80048; 80051; 80053; 81001; 82330; 82805; 82962; 85025; 87426; 93005; 94640; 94660; 96372; 96374; 99291; J1644; J1815; J1940; J1956; J2060; J2930; J7626

== ENCOUNTER 2020-11-17 08:14 | Inpatient (IN) | payer MEDICAID, SELFPAY ==
[2020-11-17] VITALS (20 sets, daily range): BP systolic 113–168; BP diastolic 58–102; PULSE 98–130; RESP 18–43; TEMP 36.7; O2SAT 75–100; BMI 17.9; BMI 15.1
--- NOTE | 2020-11-17 08:28 | XR_ITS ---
WS: [id number] Exam: XR chest 1V portable [id number] Date/Time of Exam: 11/17/2020 8:59 AM Reason For Exam: chest pain Comparison 10/28/2020. The lungs are hyperinflated and clear. Cardiomediastinal structures are unremarkable. Regional bony e lements are intact. Monitoring leads superimpose the chest. XR/XR chest 1V portable [id number] IMPRESSION: 1. Pulmonary hyperinflation which may indicate obstructive lung disease. 2. No acute process noted.
--- NOTE | 2020-11-17 08:28 | ECG_ITS ---
[facility] Test Date: 2020-11-17 Pat Name: Adore Broussard Department: Room: Gender: Female Fifth Hand: : 1960 Requested By: Sid Gunderson Order Number: [id number] Cherelle MD: Marianna Guadalupe M.D. Measurements Intervals [place] Rate: 103 P: 85 SD: 143 QRS: 83 QRSD: 102 T: 77 QT: 312 QTc: 409 Interpretive Statements SINUS TACHYCARDIA RIGHT ATRIAL ENLARGEMENT [0.3mV P-WAVE] LEFT ATRIAL ENLARGEMENT [-0.15mV P-WAVE IN V1/V2] Compared to ECG 10/28/2020 10:52:53 Atrial abnormality now present Ventricular premature complex(es) no longer present Intraventricular conduction delay no longer present ST (T wave) deviation no longer present Early repolarization no longer present Electronically Signed On 11-17-2020 13:04:50 CDT by Marianna Guadalupe M.D. [id number]
--- NOTE | 2020-11-17 08:38 | W.ED.CHESTPA ---
HPI - Chest Pain General: Chief Complaint: ER Hold Stated Complaint: SOB, CHEST PAIN Time Seen by Provider: 11/17/20 08:20 History of Present Illness: HPI narrative: 60-year-old female presents emergency room claiming shortness of breath and chest pain she usually wears 2 L by nasal cannula at home. She has a strong history of COPD is and stated. On direct in the room she had her oxygen turned up to 5 L by nasal cannula when she was somewhat lethargic short of breath using accessory restaurant muscles to breathe. She denies any radiation of chest pain began while at rest. She told the nurses been going on for 2 days and then told me it it just started. No nausea or vomiting no diarrhea no productive cough no fever. Patient still lives at home alone does not have any assistance. She has frequently been admitted to [facility] [place][note 3]. MD complaint: chest pain Pertinent past history: other (COPD) Onset (ago): day(s) (2) Timing of current episode: episodic Prior episodes: Yes Onset: during rest Pain location: left chest Pain radiation: none Severity: moderate Quality: heaviness Relieving factors: nothing Exacerbating factors: nothing Associated symptoms: Deny abdominal pain, diaphoresis, dyspnea, fever(s), leg edema, nausea, palpitations, sense of impending doom, syncope or vomiting Treatment prior to arrival: none Review of Systems Const: Denies: fever(s) or diaphoresis ENMT: Denies: throat pain, ear or mastoid pain, nasal discharge or nasal congestion Card: Denies: palpitations or syncope Resp: Denies: dyspnea GI: Denies: abdominal pain, nausea or vomiting : Denies: flank pain, difficulty voiding, dysuria, urinary frequency or urinary urgency Skin/Breast: Denies: rash or pruritus ON LICENSE OF [facility] ED PFSH: Medical History (Updated 11/19/20 @ 06:54 by Sid Hui DO) BMI less than 19,adult Chest pain CHF (congestive heart failure) Ejection fraction 57% on echocardiogram done 05/15/2020 Chronic respiratory failure with hypoxia and hypercapnia Chronic steroid use Congestive heart failure COPD (chronic obstructive pulmonary disease) Decompensated heart failure Diabetes Edema of left lower extremity GERD (gastroesophageal reflux disease) HIV (human immunodeficiency virus infection) Nicotine addiction NSTEMI (non-ST elevated myocardial infarction) 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 Protein calorie malnutrition Protein-calorie malnutrition, moderate Sinus tachycardia Troponin level elevated Surgical History H/O laparoscopy History of History of hysterectomy Family History Mother COPD (chronic obstructive pulmonary disease) Father CAD (coronary artery disease) Social History Smoking and tobacco status: current every day smoker cigarettes Years cigarettes smoked: 50 [ Other cigarette details: Hx of 1 PPD x 15 Years ] Second hand smoke exposure: Yes Alcohol intake: current Alcohol intake frequency: holidays/special occasions only Lives independently: Yes Household members: none Marital status: / Current occupational status: disabled History of recent travel: No Current gender identity: Female Female Reproductive History: Date of last menstrual period: 06/27/20 Physical Exam Const: GENERAL APPEARANCE: cooperative and comfortable ORIENTATION/CONSCIOUSNESS: Yes awake HENMT: COMMON NORMALS: normocephalic and atraumatic HEAD & SCALP: normocephalic and atraumatic Neck/C-Spine: COMMON NORMALS: no JVD Resp: AUSCULTATION: rhonchi, wheezes and diminished lung sounds Cardio: COMMON NORMALS: no JVD, regular rhythm and No murmurs present (Cardio) RATE: tachycardic RHYTHM: regular rhythm GI: COMMON NORMALS: Soft to palpation and No hepatosplenomegaly present AUSCULTATION: Yes normoactive bowel sounds PALPATION: Yes Soft to palpation, No Tenderness to palpation present (GI), No Guarding due to palpation present (GI) and Yes No hepatosplenomegaly present Extremity: COMMON NORMALS: normal to inspection, capillary refill normal, no clubbing, cyanosis or edema, no calf tenderness and no pedal edema Skin: COMMON NORMALS: no rashes or lesions noted GENERAL SKIN EXAM: no rashes or lesions noted Course Vital Signs: Vital signs: Vital Signs Temperature 99.2 F 11/19/20 04:00 Pulse Rate 103 H 11/19/20 04:00 Respiratory Rate 16 11/19/20 04:00 Blood Pressure 146/72 11/19/20 04:00 Pulse Oximetry 94 11/19/20 04:00 MDM - Chest Pain MDM Narrative: Medical decision making narrative: Patient in acute respiratory distress she did respond to the BiPAP but then as she improved she became combative and pulled off requiring Ativan. Discussed with Dr. Naidu will admit for exacerbation COPD and further evaluation. Lab Data: Labs: Lab Results 11/17/20 11/17/20 11/17/20 Range/Units 08:30 08:30 08:30 WBC 4.8 (4.0-10.0) 10^3/ uL RBC 4.92 (4.1-5.3) 10^6/u L Hgb 13.7 (11.5-15.3) g/dL Hct 46.7 (37.0-47.0) % MCV 94.9 (81-99) fl MCH 27.8 L (28.0-34.0) pg MCHC 29.3 L (30.0-36.0) g/dL RDW 13.2 (12.1-15.1) % Plt Count 144 (130-400) 10^3/c mm MPV 10.1 (7.4-10.4) fL Neut % (Auto) 76.1 % Lymph % (Auto) 14.3 % Piute % (Auto) 7.3 % Eos % (Auto) 0.4 % Baso % (Auto) 0.6 % Neut # (Auto) 3.63 (1.8-7.7) 10^3/u L Lymph # (Auto) 0.7 L (0.8-4.8) 10^3/u L Piute # (Auto) 0.4 (0.2-0.9) 10^3/u L Eos # (Auto) 0.0 (0.0-0.8) 10^3/u L Baso # (Auto) 0.0 (0.0-0.1) 10^3/u L Nucleated RBC % (a uto) 0 % Nucleated RBCs # 0.0 /100WBC D-Dimer (0-0.59) ug/mIFE U Specimen Type Sample Site ABG pH (7.35-7.45) ABG pCO2 (35-45) mmHg ABG pO2 (80.0-100.0) mmH g ABG HCO3 (22-26) mmol/L ABG O2 Saturation ABG Base Excess (-2.0-2.0) mmol/ L Adrian Test A-a O2 Gradient Hematocrit (37-47) % Hgb O2 Saturation (95-100) % Carboxyhemoglobin (0.4-20.1) %THgb Methemoglobin (0.4-1.5) % Total Hemoglobin (12-16) g/dL Ionized Calcium (1.1-1.4) mmol/L O2 Delivery Device O2 Liters/Min % FiO2 % PEEP cmH20 Traffic Division Commanding Officer ID Sodium 136 (136-145) mmol/L Potassium 5.1 (3.5-5.1) mmol/L Chloride 89 L (98-107) mmol/L Carbon Dioxide 45 H* (22-29) mmol/L Anion Gap 7.1 (5-19) BUN 8 (6-20) mg/dL Creatinine 0.4 L (0.5-0.9) mg/dL GFR Calculation 163.4 H (90-130) mL/min Glucose 148 H (65-115) mg/dL Calculated Osmolal ity 283 L (285-295) mOsm/k g Calcium 8.9 (8.5-10.5) mg/dL Total Bilirubin 0.5 (0.15-1.2) mg/dL AST 25 (0-32) U/L ALT 20 (0-33) U/L Alkaline Phosphata se 61 (35-105) IU/L Troponin T Baselin e 43 H (0-10) ng/L Total Protein 6.1 L (6.6-8.7) g/dL Albumin 3.6 (3.5-5.2) g/dL Globulin 2.5 (1.3-4.6) g/dL 11/17/20 11/17/20 11/17/20 Range/Units 08:30 08:40 10:53 WBC (4.0-10.0) 10^3/ uL RBC (4.1-5.3) 10^6/u L Hgb (11.5-15.3) g/dL Hct (37.0-47.0) % MCV (81-99) fl MCH (28.0-34.0) pg MCHC (30.0-36.0) g/dL RDW (12.1-15.1) % Plt Count (130-400) 10^3/c mm MPV (7.4-10.4) fL Neut % (Auto) % Lymph % (Auto) % Piute % (Auto) % Eos % (Auto) % Baso % (Auto) % Neut # (Auto) (1.8-7.7) 10^3/u L Lymph # (Auto) (0.8-4.8) 10^3/u L Piute # (Auto) (0.2-0.9) 10^3/u L Eos # (Auto) (0.0-0.8) 10^3/u L Baso # (Auto) (0.0-0.1) 10^3/u L Nucleated RBC % (a uto) % Nucleated RBCs # /100WBC D-Dimer 0.38 (0-0.59) ug/mIFE U Specimen Type Arterial Arterial Sample Site Brachial, left Brachial, left ABG pH 7.14 L* 7.34 L (7.35-7.45) ABG pCO2 146.0 H* 89.1 H* (35-45) mmHg ABG pO2 170.0 H 44.8 L (80.0-100.0) mmH g ABG HCO3 49.9 H 47.9 H (22-26) mmol/L ABG O2 Saturation 99.7 85.7 ABG Base Excess 15.4 H 18.2 H (-2.0-2.0) mmol/ L Adrian Test N/a N/a A-a O2 Gradient Not Reportable 4.6 L Hematocrit 37.5 35.0 L (37-47) % Hgb O2 Saturation 97.6 83.7 L (95-100) % Carboxyhemoglobin 1.2 1.6 (0.4-20.1) %THgb Methemoglobin 0.9 0.6 (0.4-1.5) % Total Hemoglobin 12.2 11.4 L (12-16) g/dL Ionized Calcium 1.3 1.3 (1.1-1.4) mmol/L O2 Delivery Device Nc Bipap O2 Liters/Min 2.0 % FiO2 28.0 26.0 % PEEP 12.0 cmH20 Traffic Division Commanding Officer ID Amh Amh Sodium 136.0 133.0 (136-145) mmol/L Potassium 4.6 5.3 H (3.5-5.1) mmol/L Chloride (98-107) mmol/L Carbon Dioxide (22-29) mmol/L Anion Gap (5-19) BUN (6-20) mg/dL Creatinine (0.5-0.9) mg/dL GFR Calculation (90-130) mL/min Glucose 150.0 H 137.0 H (65-115) mg/dL Calculated Osmolal ity (285-295) mOsm/k g Calcium (8.5-10.5) mg/dL Total Bilirubin (0.15-1.2) mg/dL AST (0-32) U/L ALT (0-33) U/L Alkaline Phosphata se (35-105) IU/L Troponin T Baselin e (0-10) ng/L Total Protein (6.6-8.7) g/dL Albumin (3.5-5.2) g/dL Globulin (1.3-4.6) g/dL Discharge Plan Discharge Patient Disposition: Admitted As Inpatient Admit Provider: Fabien Miner Clinical Impression: Acute exacerbation of chronic obstructive pulmonary disease (COPD), Diabetes, Acute respiratory failure with hypoxia and hypercapnia Condition: Stable Coding Level of Care Code ED Cracking And Fanning Machine Operator for Chg Fwd Exam Comprehensive
[2020-11-17 08:44] LABS: Basophils % 0.6 %; Eosinophils % 0.4 %; Hematocrit 46.7 % (37.0-47.0); Hemoglobin 13.7 g/dL (11.5-15.3); Lymphocytes # 0.7 10^3/uL (0.8-4.8); Lymphocytes % 14.3 %; Mean Corpuscular HGB Conc 29.3 g/dL (30.0-36.0); Mean Corpuscular Hemoglobin 27.8 pg (28.0-34.0); Mean Corpuscular Volume 94.9 fl (81-99); Mean Platelet Volume 10.1 fL (7.4-10.4); Monocytes # 0.4 10^3/uL (0.2-0.9); Monocytes % 7.3 %; Neutrophils # 3.63 10^3/uL (1.8-7.7); Neutrophils % 76.1 %; Nucleated Red Blood Cells % 0 %; Platelet Count 144 10^3/cmm (130-400); Red Blood Count 4.92 10^6/uL (4.1-5.3); Red Cell Distribution Width 13.2 % (12.1-15.1); White Blood Count 4.8 10^3/uL (4.0-10.0)
[2020-11-17] MEDS: aspirin 81 mg Chew Tablet 324 MG PO (08:47)
[2020-11-17 08:53] LABS: ABG PH Result 7.14 (7.35-7.45); Arterial Blood Gas Hematocrit 37.5 % (37-47); Base Excess ABG 15.4 mmol/L (-2.0-2.0); Blood Gas Operator Identificat AMH; Blood Gas Sample Site Brachial, left; Blood Gas Sample Type Arterial; Carboxyhemoglobin 1.2 %THgb (0.4-20.1); HCO3 ABG 49.9 mmol/L (22-26); HGB O2 Sat 97.6 % (95-100); Ionized Calcium Level - ABG 1.3 mmol/L (1.1-1.4); Methemoglobin 0.9 % (0.4-1.5); Oxygen Device NC; Oxygen Saturation ABG 99.7; Potassium Level - ABG 4.6 mmol/L (3.5-5.0); Total Hemoglobin 12.2 g/dL (12-16)
[2020-11-17 09:01] LABS: Alanine Aminotransferase 20 U/L (0-33); Albumin Level 3.6 g/dL (3.5-5.2); Alkaline Phosphatase 61 IU/L (35-105); Blood Urea Nitrogen 8 mg/dL (6-20); Calcium 8.9 mg/dL (8.5-10.5); Chloride 89 mmol/L (98-107); Globulin 2.5 g/dL (1.3-4.6); Glomerular Filtration Rate 163.4 mL/min (90-130); Glucose 148 mg/dL (65-115); Osmolality Calculated 283 mOsm/kg (285-295); Sodium 136 mmol/L (136-145); Total Bilirubin 0.5 mg/dL (0.15-1.2); Total Protein 6.1 g/dL (6.6-8.7)
[2020-11-17 09:02] LABS: Troponin(5th) Baseline 43 ng/L (0-10)
[2020-11-17 09:12] LABS: Anion Gap 7.1 (5-19); Aspartate Amino Transferase 25 U/L (0-32); Carbon Dioxide 45 mmol/L (22-29); Potassium 5.1 mmol/L (3.5-5.1)
[2020-11-17] MEDS: LORazepam 2 mg/mL INJ 1 mL 1 MG IVP (09:36)
[2020-11-17] MEDS: ipratropium-albuterol 3 mL Neb INHALATION ×3 (10:00→22:15)
--- NOTE | 2020-11-17 10:11 | PC.PHAR ---
pt unable to verify medications-medications entered are what shows has been filled on ext med history recently-notes are made in the pharmacy comments
--- NOTE | 2020-11-17 10:28 | ECG_ITS ---
[facility] ED Test Date: 2020-11-17 Pat Name: Adore Broussard Department: Room: Gender: Female Qa Intern: : 1960 Requested By: Sid Gunderson Order Number: [id number] Cherelle MD: Marianna Guadalupe M.D. Measurements Intervals [place] Rate: 108 P: 83 W[place]: 127 QRS: 86 QRSD: 85 T: 84 QT: 316 QTc: 424 Interpretive Statements SINUS TACHYCARDIA RIGHT ATRIAL ENLARGEMENT [0.3mV P WAVE] LEFT ATRIAL ENLARGEMENT [-0.15mV P WAVE IN V1/V2] Compared to ECG 11/17/2020 08:19:59 No significant changes Electronically Signed On 11-17-2020 13:15:08 CDT by Marianna Guadalupe M.D. [id number]
[2020-11-17 11:05] LABS: ABG PH Result 7.34 (7.35-7.45); Alveolar-Arterial Oxygen Gradi 4.6 mmHg (5-10); Base Excess ABG 18.2 mmol/L (-2.0-2.0); Blood Gas Operator Identificat AMH; Blood Gas Sample Site Brachial, left; Blood Gas Sample Type Arterial; Carboxyhemoglobin 1.6 %THgb (0.4-20.1); HCO3 ABG 47.9 mmol/L (22-26); HGB O2 Sat 83.7 % (95-100); Ionized Calcium Level - ABG 1.3 mmol/L (1.1-1.4); Methemoglobin 0.6 % (0.4-1.5); Oxygen Device BIPAP; Oxygen Saturation ABG 85.7; PO2 ABG 44.8 mmHg (80.0-100.0); Potassium Level - ABG 5.3 mmol/L (3.5-5.0); Total Hemoglobin 11.4 g/dL (12-16)
[2020-11-17 11:06] LABS: ABG PCO2 89.1 mmHg (35-45)
--- NOTE | 2020-11-17 14:28 | ECG_ITS ---
[facility] Test Date: 2020-11-17 Pat Name: Adore Broussard Department: Room: Gender: Female Broth Setter: : 1960 Requested By: Sid Gunderson Order Number: [id number] Cherelle MD: Marianna Guadalupe M.D. Measurements Intervals [place] Rate: 123 P: 87 AR: 125 QRS: 90 QRSD: 82 T: 87 QT: 281 QTc: 402 Interpretive Statements SINUS TACHYCARDIA ABNORMAL RHYTHM ECG Compared to ECG 11/17/2020 10:32:51 Atrial abnormality no longer present Electronically Signed On 11-17-2020 20:30:30 CDT by Marianna Guadalupe M.D. [id number]
--- NOTE | 2020-11-17 14:45 | PM.HP ---
Providers/Chief Complaint Primary Care Provider: Ta Salas MD Chief Complaint: SOB, CHEST PAIN History of Present Illness Adore Broussard is a 60 year old female that presented to the emergency department with shortness of breath and chest discomfort. She was on BiPAP during my attempted evaluation, and continue to fall asleep during my exam. From the emergency department record she typically wears 2 L of oxygen per nasal cannula and has chronic COPD. She had her oxygen turned up secondary to shortness of breath and became more lethargic over time. She was also complaining of some chest discomfort going on for the last several days. No fever at home according to their documentation. Upon arrival in the emergency department she was placed on BiPAP for suspected hypercapnia. She was given Ativan to relax so she would leave the BiPAP on. She was given an aspirin. EKGs and troponins were ordered, in addition to ABGs. Review of Systems General: Reports: ROS unobtainable due to medical condition (Patient lethargic, on BiPAP and unable to participate.) Medications/Allergies Home Medications Medication Instructions Recorded Confirmed Last Taken Type albuterol sulfate 90 mcg/actuation 2 puff INHALATION Q4H PRN 10/03/19 11/17/20 Unknown History aerosol inhaler montelukast 10 mg tablet 10 mg PO DAILY 10/03/19 11/17/20 08/28/20 History Biktarvy 1 tab PO DAILY 04/23/20 11/17/20 09/18/20 History Spiriva with HandiHaler 1 cap INHALATION DAILY 05/05/20 11/17/20 09/18/20 History budesonide-formoterol [Symbicort] 2 puff INHALATION BID 05/05/20 11/17/20 Unknown History glucometer #1 ea 06/16/20 11/17/20 Unknown Rx aspirin 81 mg PO DAILY 10/13/20 11/17/20 Unknown History atorvastatin 40 mg PO DAILY 10/13/20 11/17/20 Unknown History clopidogrel 75 mg PO DAILY 10/13/20 11/17/20 Unknown History furosemide 40 mg PO DAILY 10/13/20 11/17/20 Unknown History ipratropium-albuterol 3 ml INHALATION Q6H PRN 10/13/20 11/17/20 Unknown History sulfamethoxazole-trimethoprim 1 tab PO Q48H 30 Days #15 tab 10/15/20 11/17/20 Unknown Rx Combivent Respimat 1 puff INHALATION QID 10/28/20 11/17/20 Unknown History carvedilol 3.125 mg PO BID 10/28/20 11/17/20 Unknown History insulin aspart U-100 [Novolog See Rx Instructions .ROUTE .COMPLEX 10/28/20 11/17/20 Unknown History Flexpen U-100 Insulin] potassium chloride [Klor-Con M20] 20 meq PO DAILY 10/28/20 11/17/20 Unknown History prednisone 10 mg PO DAILY 11/17/20 11/17/20 Unknown History Allergies Allergy/AdvReac Type Severity Reaction Status Date / Time Penicillins Allergy ALGY-Difficulty Verified 10/12/20 20:16 Breathing phenobarbital Allergy ALGY-Hives Verified 10/12/20 20:16 Tetanus Vaccines and Toxoid Allergy ALGY-Hives Verified 10/12/20 20:16 PFSH Acute PFSH: Medical History (Updated 11/17/20 @ 15:01 by Fabien Miner MD) BMI less than 19,adult Chest pain CHF (congestive heart failure) Ejection fraction 57% on echocardiogram done 05/15/2020 Chronic respiratory failure with hypoxia and hypercapnia Chronic steroid use Congestive heart failure COPD (chronic obstructive pulmonary disease) Decompensated heart failure Diabetes Edema of left lower extremity GERD (gastroesophageal reflux disease) HIV (human immunodeficiency virus infection) Nicotine addiction NSTEMI (non-ST elevated myocardial infarction) 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 Protein calorie malnutrition Protein-calorie malnutrition, moderate Sinus tachycardia Troponin level elevated Surgical History H/O laparoscopy History of History of hysterectomy Family History Mother COPD (chronic obstructive pulmonary disease) Father CAD (coronary artery disease) Social History Smoking and tobacco status: current every day smoker cigarettes Years cigarettes smoked: 50 [ Other cigarette details: Hx of 1 PPD x 15 Years ] Second hand smoke exposure: Yes Alcohol intake: current Alcohol intake frequency: holidays/special occasions only Lives independently: Yes Household members: none Marital status: / Current occupational status: disabled History of recent travel: No Current gender identity: Female Female Reproductive History: Date of last menstrual period: 06/27/20 Vitals/I&O/Wt Last Vital Signs Temp 98.1 F 11/17/20 08:15 Pulse 115 H 11/17/20 14:26 Resp 31 H 11/17/20 14:26 BP 126/84 11/17/20 14:26 Pulse Ox 98 11/17/20 14:26 Weight last 48 hrs Weight 43.091 kg Physical Exam Narrative: EXAM NARRATIVE: General exam is a lethargic female, in no distress on BiPAP HEENT: Pupils equally round. Oropharynx not examined secondary to BiPAP. Neck is supple no lymphadenopathy or thyromegaly Cardiovascular tachycardic, regular, heart sounds distant Lungs diminished breath sounds bilaterally. No wheezing Abdomen is soft with positive bowel sounds. No obvious organomegaly exam is deferred Extremities no cyanosis clubbing. 1+ edema is noted bilaterally. Cap refill intact. Skin no rash Neuro no obvious focal deficits, moves all 4 extremities. Data : 11/17/20 08:30 11/17/20 08:30 Other data: ABG demonstrates a pH 7.34, PCO2 of 89, PO2 of 44.8 on BiPAP on 26% FiO2. First ABG upon arrival to the emergency department was a pH of 7.14 and a PCO2 of 146. Troponin 43, albumin 3.6 Previous echo August 2020 demonstrated preserved EF of 55 to 60% normal RV function EKG demonstrates sinus tachycardia with a rate of 103, normal axis, no significant acute changes. Biphasic P wave in V1 indicates possible left atrial enlargement. A&P Assessment and plan (1) Acute respiratory failure with hypoxia and hypercapnia: Patient with chronic hypercapnic respiratory failure. This likely worsened with her increasing her oxygen. Etiology is likely COPD exacerbation. Status: Acute (2) Acute exacerbation of chronic obstructive pulmonary disease (COPD): IV steroids Pulmonary toilet Budesonide BiPAP for respiratory support. This will help reduce CO2 Doxycycline Status: Acute (3) Diabetes: Sliding scale insulin Status: Acute (4) Chronic steroid use: IV steroids secondary to COPD exacerbation Status: Acute (5) HIV (human immunodeficiency virus infection): May continue her home medication Status: Acute Qualifiers: HIV symptom status: asymptomatic Qualified Code(s): Z21 - Asymptomatic human immunodeficiency virus [HIV] infection status (6) Nicotine addiction: Counseling Status: Acute Qualifiers: Nicotine product type: cigarettes Substance use status: other nicotine-induced disorder Qualified Code(s): F17.218 - Nicotine dependence, cigarettes, with other nicotine-induced disorders Additional A&P Information Chest pain. It has been going on for 2 days. Check D-dimer. Continue home medications. Await troponins but I do not suspect this is cardiac. See last echo result. Full code Lovenox will suffice for DVT prophylaxis Pepcid for GI prophylaxis Attestations Medical Necessity Statement*: Will need greater than 2 midnight stay secondary to severe hypoxic and hypercarbic respiratory failure requiring BiPAP on admission. Coding Level of Care Code Acute Bedspread Cutter for [facility] Diagnoses Acute respiratory failure with hypoxia and hypercapnia J96.01; J96.02 Acute exacerbation of chronic obstructive pulmonary disease (COPD) J44.1 Diabetes E11.9 Chronic steroid use HIV (human immunodeficiency virus infection) Z21 HIV symptom status: asymptomatic Nicotine addiction F17.218 Nicotine product type: cigarettes Substance use status: other nicotine-induced disorder
[2020-11-17 15:31] LABS: Troponin 5 2HR 56.39 ng/L (0-10)
[2020-11-17 15:44] LABS: D Dimer 0.38 ug/mIFEU (0-0.59)
[2020-11-17 15:52] LABS: ABG PH Result 7.38 (7.35-7.45); Arterial Blood Gas Hematocrit 35.8 % (37-47); Base Excess ABG 19.1 mmol/L (-2.0-2.0); Blood Gas Allen Test Pos; Blood Gas Operator Identificat AMH; Blood Gas Sample Site Radial, right; Blood Gas Sample Type Arterial; Oxygen Device BIPAP
[2020-11-17 15:53] LABS: ABG PCO2 80.9 mmHg (35-45)
[2020-11-17] MEDS: famotidine 20 mg/2 mL INJ IVP (18:40)
[2020-11-17 18:41] LABS: SARS Covid-2 Antigen Negative (Negative)
[2020-11-17] MEDS: enoxaparin 40 mg/0.4 mL Syringe SUBCUT (18:42)
[2020-11-17 19:01] LABS: Specific Gravity, Urine 1.025 (1.005-1.030); Urine Appearance Clear (CLEAR); Urine Color Dark Yellow (Yellow); pH Urine 5 (5-7)
[2020-11-17 19:02] LABS: Amorphous Sediment Urine 1+ /hpf; Bacteria Urine 1+ /hpf; Bilirubin Urine 1+ (Negative); Blood Urine Neg (Negative); Glucose Urine UA Norm (Normal); Hyaline Casts Urine 15-25 /lpf; Ketones Urine 1+ (Negative); Leukocyte Esterase Urine Negative (Negative); Mucus Urine TRACE /hpf; Nitrate Urine Negative (Negative); Protein Urine Neg (Negative); Urobilinogen Urine Norm (Negative); WBC Urine 0-4 /hpf (0-5)
[2020-11-17 19:03] LABS: Add Urine Culture? No
[2020-11-17] MEDS: budesonide 0.5 mg/2 mL Neb INHALATION (22:15)
--- NOTE | 2020-11-17 23:04 | PC.NURSE ---
report called to Sally
[2020-11-17] MEDS: doxycycline 100 mg Tablet PO (23:13)
[2020-11-18] VITALS (127 sets, daily range): BP systolic 119–164; BP diastolic 66–106; PULSE 108–147; RESP 9–57; TEMP 36.6–37.2; O2SAT 68–100
[2020-11-18] MEDS: metoprolol tartrate 1 mg/1 mL SDV 5 mL 5 MG IVP ×2 (00:48→12:35)
[2020-11-18 04:34] LABS: Basophils % 0.4 %; Hematocrit 41.7 % (37.0-47.0); Hemoglobin 12.5 g/dL (11.5-15.3); Lymphocytes # 0.3 10^3/uL (0.8-4.8); Lymphocytes % 12.4 %; Mean Corpuscular Hemoglobin 27.9 pg (28.0-34.0); Mean Corpuscular Volume 93.1 fl (81-99); Mean Platelet Volume 10.9 fL (7.4-10.4); Monocytes # 0.1 10^3/uL (0.2-0.9); Neutrophils # 2.11 10^3/uL (1.8-7.7); Neutrophils % 84.8 %; Nucleated Red Blood Cells % 0 %; Platelet Count 124 10^3/cmm (130-400); Red Blood Count 4.48 10^6/uL (4.1-5.3); Red Cell Distribution Width 13.2 % (12.1-15.1); White Blood Count 2.5 10^3/uL (4.0-10.0)
[2020-11-18 05:27] LABS: Slide Review Slide Review Perform
[2020-11-18] MEDS: famotidine 20 mg/2 mL INJ IVP ×2 (05:39→16:14)
[2020-11-18] MEDS: ipratropium-albuterol 3 mL Neb INHALATION ×4 (07:29→19:15)
--- NOTE | 2020-11-18 07:35 | PC.NURSE ---
Report received, pt resting in bed. Assessment completed. No c/o pain. AAOx4. NC in use. VSS. Angulo cath training clear, yellow urine to BSD. No issues noted. Send out Covid swab obtained. Will monitor.
[2020-11-18 07:36] LABS: Glucose Point of Care 234 mg/dL (70-110)
[2020-11-18] MEDS: budesonide 0.5 mg/2 mL Neb INHALATION ×2 (07:36→19:15)
--- NOTE | 2020-11-18 07:54 | PC.NURSE ---
Shift Note Frequent safety and comfort rounds continue. Orders and/or nursing care completed as indicated. Patient monitored for response to intervention and treatment(s). Education provided includes[]. Patient and/or underwriting sales representative [ResponseToTeaching]. Will continue to monitor. The patient has been in sinus tachycardia since she arrived, and once during shift 5 mg of metoprolol was given, which brought the patient's heart rate down to the low 100's for about two hours. The SBP has stayed mostly in the 140's and the respirations have remained in the upper 20's and mid 30's. They were on 2L nasal cannula for most of the shift. There is plus 3 pitting edema in the left leg. At first the patient was mildly confused, but after a few hours of being here was was alert and oriented X4. The patient's main concern was that she was hungry and wanted food.
[2020-11-18] MEDS: clopidogrel 75 mg Tablet PO (08:08)
[2020-11-18] MEDS: aspirin 81 mg EC Tablet PO (08:08)
[2020-11-18] MEDS: FUROsemide 40 mg Tablet PO (08:08)
[2020-11-18] MEDS: atorvastatin 40 mg Tablet PO (08:09)
[2020-11-18] MEDS: montelukast sodium 10 mg Tablet PO (08:09)
[2020-11-18] MEDS: doxycycline 100 mg Tablet PO ×2 (08:10→20:03)
[2020-11-18] MEDS: predniSONE 20 mg Tablet 40 MG PO (08:10)
[2020-11-18 08:27] LABS: Alanine Aminotransferase 18 U/L (0-33); Albumin Level 3.4 g/dL (3.5-5.2); Alkaline Phosphatase 57 IU/L (35-105); Blood Urea Nitrogen 12 mg/dL (6-20); Calcium 8.8 mg/dL (8.5-10.5); Carbon Dioxide 40 mmol/L (22-29); Chloride 85 mmol/L (98-107); Globulin 1.6 g/dL (1.3-4.6); Glomerular Filtration Rate 163.4 mL/min (90-130); Glucose 193 mg/dL (65-115); Osmolality Calculated 277 mOsm/kg (285-295); Sodium 131 mmol/L (136-145); Total Bilirubin 0.5 mg/dL (0.15-1.2)
[2020-11-18 08:29] LABS: Anion Gap 11.5 (5-19); Aspartate Amino Transferase 21 U/L (0-32); Potassium 5.5 mmol/L (3.5-5.1)
--- NOTE | 2020-11-18 08:32 | PC.CHAP ---
Pastoral Care Encounter/Spiritual Assessment Type of Contact [] Declined chili pepper grinder visit [] Patient/Family/Request visit [] Outpatient visit [] Follow-up visit [] Physician referral [] Code/Alert [x] Routine visit [] Staff referral [] Actively dying [] Patient sleeping [] Family support [] [] Out of room [] Palliative care [] [] Receiving care in room [] Pre-surgical visit [] Trauma [] Long length of stay [x] ICU visit [] Other: Relational/Emotional Strength [] Patient feels connected with others/family/visitors/staff [] Distress [] Loneliness/isolation [] Abandonment Spirituality of Patient [] Person of Thea [] Attends Confucianism of their Thea [] Believes in Prayer [] Reads Bible or Church materials [] There are Spiritual issues to be addressed Paperhanger Assistant Interventions [x] Prayer [x] Active listening [x] Non-anxious presence [x] Spiritual/emotional support [] Crisis/trauma care [] Spiritual counseling [] Bereavement support [] Provided bereavement packet [] Provided Bible/devotional materials [] Provided toy/stuffed animal, coloring book to patient or family member [] Provided Communion [] Anointing/[place] [] Salvation [x] Completed spiritual assessment [] Other: Impact on Illness or Injury [] Angry [] Fearful [] Anxious [] Often cries [] Exhaustion [] Unable to work [] Unable to attend orthodoxy [] Unable to walk/stand [] Unable to read [] Unable to drive [] Unable to eat/drink [] Unable to sleep [] Unable to be with family [] Patient intubated [] Other: Summary patient responded with kindness and requested prayer delivered daily bread and small doll to her room.... while sleeping Time spent with patient 5min
[2020-11-18 11:39] LABS: Glucose Point of Care 142 mg/dL (70-110)
--- NOTE | 2020-11-18 14:05 | PM.PN ---
Subjective Subjective: Interval history: Adore reports she is doing okay. Reports her breathing is getting closer to baseline. Medications: Reviewed: Yes Vitals/I&O/Wt Last Vital Signs Temp 98.4 F 11/18/20 12:00 Pulse 118 H 11/18/20 13:50 Resp 39 H 11/18/20 12:00 BP 144/78 11/18/20 12:00 Pulse Ox 94 11/18/20 12:00 11/17/20 11/18/20 11/18/20 22:59 06:59 14:59 Intake Total 720 / 720 Output Total 1800 / 1800 Balance -1080 / -1080 Weight last 48 hrs Weight 36.401 kg Weight 43.091 kg Physical Exam Narrative: EXAM NARRATIVE: General exam no apparent distress. Texting while I am trying to interview her. Neck is supple no lymphadenopathy Cardiovascular tachycardic, regular without murmur Lungs diminished breath sounds bilaterally but no wheezing Abdomen is soft with positive bowel sounds Extremities no cyanosis clubbing. Trace edema. Data : 11/18/20 04:11 11/18/20 07:44 A&P Assessment and plan (1) Acute respiratory failure with hypoxia and hypercapnia: Patient with chronic hypercapnic respiratory failure. This likely worsened with her increasing her oxygen. Etiology is COPD exacerbation Overall improving Changed to prednisone 40 mg daily Status: Acute (2) Acute exacerbation of chronic obstructive pulmonary disease (COPD): Changed to p.o. steroids Pulmonary toilet Budesonide BiPAP for respiratory support. This will help reduce CO2. She is currently refusing BiPAP Transfer out of ICU Continue Doxycycline Status: Acute (3) Diabetes: Sliding scale insulin Status: Acute (4) Chronic steroid use: Changed to p.o. steroids Status: Acute (5) HIV (human immunodeficiency virus infection): May continue her home medication Status: Acute Qualifiers: HIV symptom status: asymptomatic Qualified Code(s): Z21 - Asymptomatic human immunodeficiency virus [HIV] infection status (6) Nicotine addiction: Counseling Status: Acute Qualifiers: Nicotine product type: cigarettes Substance use status: other nicotine-induced disorder Qualified Code(s): F17.218 - Nicotine dependence, cigarettes, with other nicotine-induced disorders Additional A&P Information Chest pain. It has been going on for 2 days. Dimer was not elevated. Continue home medications. Troponin with slight elevation consistent with cardiac strain, type II elevation. She has had no chest discomfort since admission. Tachycardia. Add metoprolol Hyperkalemia on a.m. labs. Recheck. Full code Lovenox will suffice for DVT prophylaxis Pepcid for GI prophylaxis Attestations Medical Necessity Statement*: Needs continued hospitalization for pulmonary toilet, close monitoring secondary to COPD exacerbation. Coding Level of Care Code Acute Capacitor Pack Press Operator for [facility] Fwd Diagnoses Acute respiratory failure with hypoxia and hypercapnia J96.01; J96.02 Acute exacerbation of chronic obstructive pulmonary disease (COPD) J44.1 Diabetes E11.9 Chronic steroid use HIV (human immunodeficiency virus infection) Z21 HIV symptom status: asymptomatic Nicotine addiction F17.218 Nicotine product type: cigarettes Substance use status: other nicotine-induced disorder
[2020-11-18 15:19] LABS: Potassium 4.2 mmol/L (3.5-5.1)
[2020-11-18] MEDS: enoxaparin 40 mg/0.4 mL Syringe SUBCUT (16:14)
[2020-11-18 17:02] LABS: Glucose Point of Care 304 mg/dL (70-110)
--- NOTE | 2020-11-18 17:36 | PC.NURSE ---
Shift Note Frequent safety and comfort rounds continue. Orders and/or nursing care completed as indicated. Patient monitored for response to intervention and treatment(s). Education provided includes medication information and treatment plan. Patient and/or retail field representative verbalizes understanding. Pt AAOx4, makes all needs known. O2@2LNC in use. HR elevated. ordered to enterostomal nurse 2100 metoprolol now. Will continue to monitor.
[2020-11-18] MEDS: metoprolol tartrate 25 mg Tablet PO (17:44)
[2020-11-18 19:53] LABS: Glucose Point of Care 263 mg/dL (70-110)
--- NOTE | 2020-11-18 20:38 | PC.NURSE ---
Transfer Note Patient transferred to [facility] Surg room 275 from ICU via wheelchair. Handoff report given to ALICE Perez. All patient belongings including keys and 2 personal oxygen tanks taken upstairs with patient and placed at bedside. Patient oriented to environment and equipment. Covering service notified. Orders reviewed and will continue to monitor. Family and/or outside sales representative notified.
--- NOTE | 2020-11-18 21:29 | PC.NURSE ---
i reported high pulse 109 to nurse
[2020-11-18 21:56] LABS: Glucose Point of Care 112 mg/dL (70-110)
[2020-11-19] VITALS (12 sets, daily range): BP systolic 114–146; BP diastolic 64–77; PULSE 101–125; RESP 16–24; TEMP 36.9–37.5; O2SAT 94–97
--- NOTE | 2020-11-19 00:21 | PC.NURSE ---
i reported high pulse 107 to nurse
[2020-11-19] MEDS: acetaminophen 325 mg Tablet 650 MG PO ×3 (01:24→21:35)
[2020-11-19] MEDS: famotidine 20 mg/2 mL INJ IVP (04:43)
--- NOTE | 2020-11-19 04:52 | PC.NURSE ---
i reported high pulse to nurse 103
[2020-11-19 06:37] LABS: Glucose Point of Care 245 mg/dL (70-110)
[2020-11-19] MEDS: budesonide 0.5 mg/2 mL Neb INHALATION ×2 (07:44→19:42)
[2020-11-19] MEDS: ipratropium-albuterol 3 mL Neb INHALATION ×5 (07:44→23:00)
--- NOTE | 2020-11-19 09:19 | P.PN_ITS ---
Subjective Subjective: Interval history: Adore reports that her breathing may be slightly worse. She is worried about some low-grade temperature elevations. She would like the catheter out of her bladder. Medications: Reviewed: Yes Vitals/I&O/Wt Last Vital Signs Temp 99.1 F 11/19/20 07:49 Pulse 102 H 11/19/20 07:49 Resp 18 11/19/20 07:49 BP 146/77 11/19/20 07:49 Pulse Ox 96 11/19/20 07:49 11/18/20 11/19/20 11/19/20 22:59 06:59 14:59 Intake Total 360 / 1080 600 / 1680 Output Total 1100 / 2900 300 / 3200 Balance -740 / -1820 300 / -1520 Weight last 48 hrs Weight 36.401 kg Physical Exam Narrative: EXAM NARRATIVE: General exam no apparent distress. Neck is supple no lymphadenopathy Cardiovascular tachycardic, regular without murmur Lungs diminished breath sounds bilaterally but no wheezing Abdomen is soft with positive bowel sounds Extremities no cyanosis clubbing. Trace edema. Data : 11/18/20 04:11 11/18/20 14:28 A&P Assessment and plan (1) Acute respiratory failure with hypoxia and hypercapnia: Patient with chronic hypercapnic respiratory failure. This likely worsened with her increasing her oxygen. Etiology is COPD exacerbation Improvement is stagnated today. Continue prednisone 40 mg a day Change doxycycline to Levaquin If improves possible discharge tomorrow Await Covid PCR. Status: Acute (2) Acute exacerbation of chronic obstructive pulmonary disease (COPD): See above. Continue p.o. steroids. Pulmonary toilet Budesonide BiPAP for respiratory support. This will help reduce CO2. She is currently refusing BiPAP Status: Acute (3) Diabetes: Sliding scale insulin Status: Acute (4) Chronic steroid use: Changed to p.o. steroids Status: Acute (5) HIV (human immunodeficiency virus infection): May continue her home medication Status: Acute Qualifiers: HIV symptom status: asymptomatic Qualified Code(s): Z21 - Asymptomatic human immunodeficiency virus [HIV] infection status (6) Nicotine addiction: Counseling Status: Acute Qualifiers: Nicotine product type: cigarettes Substance use status: other nicotine- induced disorder Qualified Code(s): F17.218 - Nicotine dependence, cigarettes, with other nicotine-induced disorders Additional A&P Information Chest pain. It has been going on for 2 days. Dimer was not elevated. Continue home medications. Troponin with slight elevation consistent with cardiac strain, type II elevation. She has had no chest discomfort since admission. I have visited with her regarding possible nuclear stress testing, angiogram, etc. She really does not want any evaluation, but would want treated medically. Therefore continue aspirin, Plavix. Add statin. Continue metoprolol. Monitor for any recurrence of discomfort. Tachycardia. Add metoprolol Hyperkalemia, likely hemolysis. Recheck of potassium was normal yesterday. Full code Lovenox will suffice for DVT prophylaxis Changed to Protonix Attestations Medical Necessity Statement*: Needs continued hospitalization for COPD exacerbation requiring pulmonary toilet. Coding Level of Care Code Acute Personal Companion for Paris Dickerson Diagnoses Acute respiratory failure with hypoxia and hypercapnia J96.01; J96.02 Acute exacerbation of chronic obstructive pulmonary disease (COPD) J44.1 Diabetes E11.9 Chronic steroid use HIV (human immunodeficiency virus infection) Z21 HIV symptom status: asymptomatic Nicotine addiction F17.218 Nicotine product type: cigarettes Substance use status: other nicotine-induced disorder
[2020-11-19] MEDS: montelukast sodium 10 mg Tablet PO (10:09)
[2020-11-19] MEDS: levoFLOXacin 750 mg Tablet PO (10:09)
[2020-11-19] MEDS: atorvastatin 40 mg Tablet PO (10:10)
[2020-11-19] MEDS: metoprolol tartrate 25 mg Tablet PO ×2 (10:10→21:33)
[2020-11-19] MEDS: FUROsemide 40 mg Tablet PO (10:10)
[2020-11-19] MEDS: predniSONE 20 mg Tablet 40 MG PO (10:10)
[2020-11-19] MEDS: aspirin 81 mg EC Tablet PO (10:10)
[2020-11-19] MEDS: clopidogrel 75 mg Tablet PO (10:10)
[2020-11-19 11:49] LABS: Glucose Point of Care 156 mg/dL (70-110)
--- NOTE | 2020-11-19 15:21 | PC.RESP ---
RT Shift Note Frequent safety and respiratory rounds continue. Orders completed as indicated. Patient monitored pre and post treatments throughout shift. Patient [Did.] tolerate treatments appropriately. Condition [.DidNotChange]. Patient and/or traffic representative educated on respiratory treatment and medications. Patient and/or traffic representative [VERBALIZED UNDERSTANDING]. Will continue to monitor patient progress.
[2020-11-19 15:49] LABS: Coronavirus Test Green County Not Detected
[2020-11-19 16:51] LABS: Glucose Point of Care 130 mg/dL (70-110)
[2020-11-19] MEDS: enoxaparin 40 mg/0.4 mL Syringe SUBCUT (17:54)
[2020-11-19 20:32] LABS: Glucose Point of Care 390 mg/dL (70-110)
[2020-11-20] VITALS (8 sets, daily range): BP systolic 125–141; BP diastolic 72–78; PULSE 86–102; RESP 16–24; TEMP 36.5–37.2; O2SAT 95–99
[2020-11-20] MEDS: acetaminophen 325 mg Tablet 650 MG PO (04:59)
[2020-11-20] MEDS: levoFLOXacin 750 mg Tablet PO (05:02)
[2020-11-20 05:29] LABS: Basophils % 0.2 %; Hematocrit 30.6 % (37.0-47.0); Hemoglobin 9.7 g/dL (11.5-15.3); Lymphocytes # 1.1 10^3/uL (0.8-4.8); Lymphocytes % 24.5 %; Mean Corpuscular HGB Conc 31.7 g/dL (30.0-36.0); Mean Corpuscular Hemoglobin 27.9 pg (28.0-34.0); Mean Corpuscular Volume 87.9 fl (81-99); Mean Platelet Volume 10.5 fL (7.4-10.4); Monocytes # 0.6 10^3/uL (0.2-0.9); Monocytes % 13.2 %; Neutrophils % 61.9 %; Nucleated Red Blood Cells % 0 %; Platelet Count 150 10^3/cmm (130-400); Red Blood Count 3.48 10^6/uL (4.1-5.3); Red Cell Distribution Width 13.3 % (12.1-15.1); White Blood Count 4.5 10^3/uL (4.0-10.0)
[2020-11-20 05:52] LABS: Anion Gap 4.2 (5-19); Blood Urea Nitrogen 17 mg/dL (6-20); Calcium 7.8 mg/dL (8.5-10.5); Chloride 86 mmol/L (98-107); Glomerular Filtration Rate 85.6 mL/min (90-130); Glucose 110 mg/dL (65-115); Osmolality Calculated 278 mOsm/kg (285-295); Potassium 3.2 mmol/L (3.5-5.1); Sodium 133 mmol/L (136-145)
[2020-11-20 06:19] LABS: Carbon Dioxide 46 mmol/L (22-29)
[2020-11-20 06:50] LABS: Glucose Point of Care 172 mg/dL (70-110)
[2020-11-20] MEDS: potassium chloride ER 20 mEq Tablet 40 MEQ PO (08:54)
[2020-11-20] MEDS: pantoprazole DR 40 mg Tablet PO (08:55)
[2020-11-20] MEDS: predniSONE 20 mg Tablet 40 MG PO (08:55)
[2020-11-20] MEDS: clopidogrel 75 mg Tablet PO (08:55)
[2020-11-20] MEDS: montelukast sodium 10 mg Tablet PO (08:55)
[2020-11-20] MEDS: FUROsemide 40 mg Tablet PO (08:55)
[2020-11-20] MEDS: aspirin 81 mg EC Tablet PO (08:55)
[2020-11-20] MEDS: metoprolol tartrate 25 mg Tablet PO (08:55)
[2020-11-20] MEDS: ipratropium-albuterol 3 mL Neb INHALATION ×2 (11:04→15:15)
--- NOTE | 2020-11-20 11:36 | PC.CHAP ---
Pastoral Care Encounter/Spiritual Assessment Type of Contact [] Declined hearing examiner visit [] Patient/Family/Request visit [] Outpatient visit [] Follow-up visit [] Physician referral [] Code/Alert [x] Routine visit [] Staff referral [] Actively dying [] Patient sleeping [] Family support [] [] Out of room [] Palliative care [] [x] Receiving care in room [] Pre-surgical visit [] Trauma [x] Long length of stay [] ICU visit [] Other: Relational/Emotional Strength [] Patient feels connected with others/family/visitors/staff [x] Distress [] Loneliness/isolation [] Abandonment Spirituality of Patient [] Person of Thea [] Attends Yarsanism of their Thea [] Believes in Prayer [] Reads Bible or Mosque materials [] There are Spiritual issues to be addressed Nurse Specialist Interventions [] Prayer [] Active listening [] Non-anxious presence [] Spiritual/emotional support [] Crisis/trauma care [] Spiritual counseling [] Bereavement support [] Provided bereavement packet [] Provided Bible/devotional materials [] Provided toy/stuffed animal, coloring book to patient or family member [] Provided Communion [] Anointing/[place] [] Salvation [] Completed spiritual assessment [] Other: Impact on Illness or Injury [] Angry [x] Fearful [] Anxious [] Often cries [] Exhaustion [x] Unable to work [] Unable to attend faith [] Unable to walk/stand [] Unable to read [] Unable to drive [] Unable to eat/drink [] Unable to sleep [] Unable to be with family [] Patient intubated [] Other: Summary unable to communicate Time spent with patient 5 mins
--- NOTE | 2020-11-20 11:53 | PM.DCS ---
Discharge Providers Date of Admission: 11/17/20 12:36 Date of Discharge: November 20, 2020 Attending Provider at Admission: Fabien Miner MD Attending Provider at Discharge: Fabien Miner MD Primary Care Provider: Ta Salas MD Diagnoses at Discharge Discharge Diagnosis (1) Acute respiratory failure with hypoxia and hypercapnia: Status: Acute (2) Acute exacerbation of chronic obstructive pulmonary disease (COPD): Status: Acute (3) Diabetes: Status: Acute (4) Chronic steroid use: Status: Acute (5) HIV (human immunodeficiency virus infection): Status: Acute Qualifiers: HIV symptom status: asymptomatic Qualified Code(s): Z21 - Asymptomatic human immunodeficiency virus [HIV] infection status (6) Nicotine addiction: Status: Acute Qualifiers: Nicotine product type: cigarettes Substance use status: other nicotine-induced disorder Qualified Code(s): F17.218 - Nicotine dependence, cigarettes, with other nicotine-induced disorders Reason for Visit Reason for Visit: SOB, CHEST PAIN Hospital Course Hospital Course Adore is a 60-year-old white female with severe COPD who presents with shortness of breath. In the emergency department she was lethargic and found to have an elevated CO2. She was placed on BiPAP. She was placed on IV steroids, antibiotics, and pulmonary toilet. Over the ensuing days she gradually improved and steroids were weaned. Covid PCR was negative. Chest x-ray showed no infiltrate. By November 20 she was back down to her baseline oxygen requirement, and it was thought she could be discharged home with close follow-up with her primary care provider with repeat lab work in 3 to 5 days. She will discharge on Levaquin, continue pulmonary toilet, resume her home oxygen at 2 to 3 L, prednisone taper. She was instructed to use her trilogy which she has been noncompliant with whenever short of breath and always at night. Carvedilol was changed to metoprolol in case this affects any responsiveness of her airways. Physical Exam Narrative: EXAM NARRATIVE: General exam no distress Neck is supple no lymphadenopathy Cardiovascular regular rate and rhythm Lungs clear without wheezing but diminished breath sounds bilaterally Abdomen is soft with positive bowel sounds Extremities no cyanosis clubbing or edema Discharge Data Data Completed and Pending: Completed Studies During Hospitalization Category Date Time Status XR chest 1V wilda ble [id number] Stat Exams 11/17/20 08:28 Completed Labs from last 24 hours 11/20/20 11/20/20 11/20/20 06:26 05:07 05:07 WBC 4.5 RBC 3.48 L Hgb 9.7 L Hct 30.6 L MCV 87.9 MCH 27.9 L MCHC 31.7 RDW 13.3 Plt Count 150 MPV 10.5 H Neut % (Auto) 61.9 Lymph % (Auto) 24.5 [place] % (Auto) 13.2 Eos % (Auto) 0.0 Baso % (Auto) 0.2 Neut # (Auto) 2.80 Lymph # (Auto) 1.1 [place] # (Auto) 0.6 Eos # (Auto) 0.0 Baso # (Auto) 0.0 Nucleated RBC % (a uto) 0 Nucleated RBCs # 0.0 Sodium 133 L Potassium 3.2 L Chloride 86 L Carbon Dioxide 46 H* Anion Gap 4.2 L BUN 17 Creatinine 0.7 GFR Calculation 85.6 L Glucose 110 POC Glucose 172 H Calculated Osmolal ity 278 L Calcium 7.8 L Nasal/Oral COVID-1 9 PCR 11/19/20 11/19/20 11/18/20 20:23 16:41 07:10 WBC RBC Hgb Hct MCV MCH MCHC RDW Plt Count MPV Neut % (Auto) Lymph % (Auto) [place] % (Auto) Eos % (Auto) Baso % (Auto) Neut # (Auto) Lymph # (Auto) [place] # (Auto) Eos # (Auto) Baso # (Auto) Nucleated RBC % (a uto) Nucleated RBCs # Sodium Potassium Chloride Carbon Dioxide Anion Gap BUN Creatinine GFR Calculation Glucose POC Glucose 390 H 130 H Calculated Osmolal ity Calcium Nasal/Oral COVID-1 9 PCR Not detected Vitals: Last Vital Signs Temp 98.4 F 11/20/20 08:00 Pulse 90 11/20/20 11:09 Resp 20 H 11/20/20 11:09 BP 128/72 11/20/20 08:00 Pulse Ox 95 11/20/20 11:09 Discharge Plan Discharge Patient Disposition: Home Condition: Stable Prescriptions: New levofloxacin 750 mg Tablet 750 mg PO DAILY@0600 Qty: 5 RF: 0 pantoprazole 40 mg Tablet,Delayed Release (Dr/Ec) 40 mg PO DAILY Qty: 30 RF: 0 prednisone 20 mg Tablet 40 mg PO DAILY Qty: 14 RF: 0 metoprolol tartrate 25 mg Tablet 25 mg PO BID@0900,2100 Qty: 60 RF: 0 Continued montelukast [Singulair] 10 mg tablet 10 mg PO DAILY RF: 0 albuterol sulfate [ProAir HFA] 90 mcg/actuation HFA aerosol inhaler 2 puff INHALATION Q4H PRN (Reason: Shortness Of Breath) RF: 0 Biktarvy 50-200-25 mg tablet 1 tab PO DAILY RF: 0 Spiriva with HandiHaler 18 mcg Capsule, W/Inhalation Device 1 cap INHALATION DAILY RF: 0 budesonide-formoterol [Symbicort] 160-4.5 mcg/actuation Hfa Aerosol Inhaler 2 puff INHALATION BID RF: 0 (DME) glucometer See Rx Instructions .Route .MEDSUPPLY Qty: 1 RF: 0 furosemide 40 mg tablet 40 mg PO DAILY RF: 0 atorvastatin 40 mg tablet 40 mg PO DAILY RF: 0 ipratropium-albuterol 0.5 mg-3 mg(2.5 mg base)/3 mL solution for nebulization 3 ml INHALATION Q6H PRN (Reason: Shortness Of Breath) RF: 0 clopidogrel 75 mg tablet 75 mg PO DAILY RF: 0 aspirin 81 mg Tablet,Delayed Release (Dr/Ec) 81 mg PO DAILY RF: 0 sulfamethoxazole-trimethoprim 800-160 mg Tablet 1 tab PO Q48H 30 Days Qty: 15 RF: 3 potassium chloride [Klor-Con M20] 20 mEq tablet,ER particles/crystals 20 meq PO DAILY RF: 0 insulin aspart U-100 [Novolog Flexpen U-100 Insulin] 100 unit/mL (3 mL) insulin pen See Rx Instructions .ROUTE .COMPLEX RF: 0 Combivent Respimat 20-100 mcg/actuation mist 1 puff INHALATION QID RF: 0 prednisone 5 mg tablet 10 mg PO DAILY RF: 0 Discontinued carvedilol 3.125 mg tablet 3.125 mg PO BID RF: 0 Discharge Orders: Discharge Order (Routine); Ordered 11/20/20 Ordered By: Fabien Miner Referrals: Ta Salas MD [Primary Care Provider] - 4-7 days (CBC and BMP on follow-up) Discharge Diet: Diabetic Discharge Activity: Increase activity as tolerated Patient Instructions: Opioid Safety Activity Restrictions/Additional Instructions: Resume your home oxygen at 2 to 3 L per nasal cannula. Take all medicine as prescribed Follow-up with your primary care provider 3 to 5 days Discharge Attestations Time Spent in Discharge Care*: greater than 30 min Status at Discharge: Cognitive status at discharge: cognitively intact, Behavioral status at discharge: cooperative, Quality Metrics Clinical Quality Measures During this hospital stay, did patient experience: None Coding Level of Care Code Acute Chg FW DC note Diagnoses Acute respiratory failure with hypoxia and hypercapnia J96.01; J96.02 Acute exacerbation of chronic obstructive pulmonary disease (COPD) J44.1 Diabetes E11.9 Chronic steroid use HIV (human immunodeficiency virus infection) Z21 HIV symptom status: asymptomatic Nicotine addiction F17.218 Nicotine product type: cigarettes Substance use status: other nicotine-induced disorder
[2020-11-20 12:23] LABS: Glucose Point of Care 74 mg/dL (70-110)
== END 2020-11-20 16:48 | disposition home or self-care (01) | DRG 190 ==
LOC: ER 08:46 → ER IP 16:51 → ICU 22:47 → MEDSURG 11-18 21:01
PROVIDERS: Admitting Provider Internal Medicine; Emergency Provider Family Medicine; PCP Family Medicine; Visit Provider Internal Medicine
DX: J44.1 Chronic obstructive pulmonary disease with (acute) exacerbation (principal); J96.01 Acute respiratory failure with hypoxia; J96.22 Acute and chronic respiratory failure with hypercapnia; I21.A1 Myocardial infarction type 2; B20 Human immunodeficiency virus [HIV] disease; E44.0 Moderate protein-calorie malnutrition; Z68.1 Body mass index [BMI] 19.9 or less, adult; Z99.81 Dependence on supplemental oxygen; Z79.52 Long term (current) use of systemic steroids; E11.9 Type 2 diabetes mellitus without complications; K21.9 Gastro-esophageal reflux disease without esophagitis; I25.2 Old myocardial infarction; F17.210 Nicotine dependence, cigarettes, uncomplicated; E87.5 Hyperkalemia; Z91.19 Patient's noncompliance with other medical treatment and regimen; Z79.51 Long term (current) use of inhaled steroids; Z79.02 Long term (current) use of antithrombotics/antiplatelets; Z79.4 Long term (current) use of insulin
CPT/HCPCS: 36415; 36416; 36600; 71045; 80048; 80051; 80053; 81001; 82330; 82803; 82805; 82962; 84132; 84484; 85025; 85378; 87426; 87635; 93005; 94640; 94660; 96372; 96374; 99291; J1650; J1815; J2060; J2930; J3490; J7512; J7626

== ENCOUNTER 2020-12-05 00:26 | Emergency (ER) | payer MEDICAID, SELFPAY ==
--- NOTE | 2020-12-05 00:33 | XRR_ITS ---
PROCEDURE INFORMATION: Exam: XR Chest Exam date and time: 12/05/2020 12:33 AM Age: 60 years old Clinical indication: Dyspnea and shortness of breath and tachypnea; Patient HX: Resp distress. History of copd and chf. ; Additional info: SOB TECHNIQUE: Imaging protocol: XR of the chest. Views: 1 view. COMPARISON: CR XR chest 1V portable [id number] 11/17/2020 8:53 AM FINDINGS: Lungs: No CHF/pulmonary edema. There is again hyperinflation of the lungs, likely secondary to COPD. Visible lungs appear essentially clear. Pleural spaces: No visible pneumothorax. No definite pleural fluid. Heart/Mediastinum: Heart size is within normal limits. Bones/joints: Old fracture of the posterior left 9th rib, unchanged. XR/XR chest 1V portable [id number] IMPRESSION: 1. No definite pneumonia or CHF. 2. Other findings discussed above.
[2020-12-05 00:35] VITALS: BP 164/78; PULSE 124; RESP 31; TEMP 36.3; O2SAT 88; BMI 16.6
--- NOTE | 2020-12-05 00:38 | W.ED.SOB ---
HPI - SOB/Dyspnea General: Chief Complaint: Shortness of Breath/Dyspnea Stated Complaint: difficulty breathing Time Seen by Provider: 12/05/20 00:29 Source: patient and EMS Mode of arrival: EMS Limitations: no limitations History of Present Illness: HPI Narrative: 60-year-old female who has severe COPD does wear 4 L oxygen at home. EMS was called for shortness of breath. After on 5 L currently and she is 67%. Patient is tachypneic and wheezing and pursed lip breathing. She is only able speak in 2-4 word sentences. Patient has been admitted multiple times for her COPD here. She denies any cough or fever. Patient did receive a treatment in route. Associated symptoms: Deny abdominal pain, chest pain, fever(s), nausea or vomiting Review of Systems Const: Denies: fever(s), chills, body aches or change in appetite Eyes: Denies: blurry vision or eye discomfort ENMT: Denies: throat pain or dental pain Card: Denies: chest pain Resp: Reports: dyspnea and wheezing GI: Denies: abdominal pain, nausea, vomiting or diarrhea : Denies: dysuria Musc: Denies: neck pain or back pain Skin/Breast: Denies: rash Neuro: Denies: headache(s) Psych: Denies: depression Yazan/Lymph: Denies: easy bruising All/Imm: Denies: urticaria PFSH ED PFSH: Medical History BMI less than 19,adult Chest pain CHF (congestive heart failure) Ejection fraction 57% on echocardiogram done 05/15/2020 Chronic respiratory failure with hypoxia and hypercapnia Chronic steroid use Congestive heart failure COPD (chronic obstructive pulmonary disease) Decompensated heart failure Diabetes Edema of left lower extremity GERD (gastroesophageal reflux disease) HIV (human immunodeficiency virus infection) Nicotine addiction NSTEMI (non-ST elevated myocardial infarction) 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 Protein calorie malnutrition Protein-calorie malnutrition, moderate Sinus tachycardia Troponin level elevated Surgical History H/O laparoscopy History of History of hysterectomy Family History Mother COPD (chronic obstructive pulmonary disease) Father CAD (coronary artery disease) Social History Smoking and tobacco status: current every day smoker cigarettes Years cigarettes smoked: 50 [ Other cigarette details: Hx of 1 PPD x 15 Years ] Second hand smoke exposure: Yes Alcohol intake: current Alcohol intake frequency: holidays/special occasions only Lives independently: Yes Household members: none Marital status: / Current occupational status: disabled History of recent travel: No Current gender identity: Female Female Reproductive History: Date of last menstrual period: 06/27/20 Physical Exam Const: COMMON NORMALS: patient oriented x3 and healthy appearing GENERAL APPEARANCE: in distress, disheveled and ill appearing NUTRITIONAL APPEARANCE: cachectic HENMT: COMMON NORMALS: normocephalic and atraumatic HEAD & SCALP: normocephalic and atraumatic Eye: COMMON NORMALS: Equal, round and reactive pupils present and EOMs intact bilaterally PUPIL: Yes Equal, round and reactive pupils present Neck/C-Spine: COMMON NORMALS: full ROM and supple Chest: COMMONS NORMALS: normal inspection of the chest and normal palpation of entire chest wall Resp: EFFORT & INSPECTION: Yes tachypneic, Yes pursed lip breathing and Yes labored AUSCULTATION: wheezes Cardio: COMMON NORMALS: regular rate, regular rhythm and No murmurs present (Cardio) RATE: regular rate RHYTHM: regular rhythm GI: COMMON NORMALS: Normal to inspection, nondistended, normoactive bowel sounds present, Soft to palpation, non-tender and no masses PALPATION: Yes Soft to palpation Extremity: COMMON NORMALS: normal to inspection and full ROM Neuro: COMMON NORMALS: patient oriented x3, moves all extremities and no focal motor deficits Psych: COMMON NORMALS: mental status grossly normal, Normal thought process present and cooperative THOUGHT PROCESS: Normal thought process present Skin: COMMON NORMALS: no rashes or lesions noted and no wounds GENERAL SKIN EXAM: no rashes or lesions noted Course Vital Signs: Vital signs: Vital Signs Temperature 97.3 F L 12/05/20 00:35 Pulse Rate 111 H 12/05/20 04:50 Respiratory Rate 33 H 12/05/20 02:58 Blood Pressure 177/100 12/05/20 02:58 Pulse Oximetry 98 12/05/20 04:50 MDM - SOB/Dyspnea MDM Narrative: Medical decision making narrative: Adore presents here with shortness of breath along with hypercapnia. She is chronic hypercapnic respiratory failure and has been admitted multiple times. Patient allowed us to have 1 blood drawn and she started refusing all blood draws. She refused to wear BiPAP and refused a second ABG. Patient then wanted to go home. I explained to her that she was quite hypercapnic she could get worse and even at home. She understands this and has decision-making capacity and signed out AGAINST MEDICAL ADVICE. Lab Data: Labs: Lab Results 12/05/20 12/05/20 12/05/20 Range/Units 00:50 01:20 Unknown WBC 11.1 H (4.0-10.0) 10^3/ uL RBC 4.38 (4.1-5.3) 10^6/u L Hgb 12.0 (11.5-15.3) g/dL Hct 40.8 (37.0-47.0) % MCV 93.2 (81-99) fl MCH 27.4 L (28.0-34.0) pg MCHC 29.4 L (30.0-36.0) g/dL RDW 13.1 (12.1-15.1) % Plt Count 153 (130-400) 10^3/c mm MPV 10.7 H (7.4-10.4) fL Neut % (Auto) 85.1 % Lymph % (Auto) 7.4 % [place] % (Auto) 5.3 % Eos % (Auto) 0.7 % Baso % (Auto) 0.5 % Neut # (Auto) 9.48 H (1.8-7.7) 10^3/u L Lymph # (Auto) 0.8 (0.8-4.8) 10^3/u L [place] # (Auto) 0.6 (0.2-0.9) 10^3/u L Eos # (Auto) 0.1 (0.0-0.8) 10^3/u L Baso # (Auto) 0.1 (0.0-0.1) 10^3/u L Nucleated RBC % (a uto) 0 % Nucleated RBCs # 0.0 /100WBC PT Cancelled INR Cancelled Specimen Type Arterial Sample Site Radial, left ABG pH 7.21 L (7.35-7.45) ABG pCO2 136.0 H* (35-45) mmHg ABG pO2 77.5 L (80.0-100.0) mmH g ABG HCO3 54.3 H (22-26) mmol/L ABG Base Excess 20.8 H (-2.0-2.0) mmol/ L Adrian Test Pos Hematocrit 35.6 L (37-47) % Hgb O2 Saturation 93.1 L (95-100) % Carboxyhemoglobin 1.8 (0.4-20.1) %THgb Methemoglobin 1.0 (0.4-1.5) % Total Hemoglobin 11.6 L (12-16) g/dL O2 Delivery Device Nc O2 Liters/Min 2.0 % FiO2 28.0 % Slag Dumper ID Tamma Sodium Potassium Chloride Carbon Dioxide Anion Gap BUN Creatinine GFR Calculation Glucose Calculated Osmolal ity Calcium Total Bilirubin AST ALT Alkaline Phosphata se NT-Pro-B Natriuret Pep Total Protein Albumin Globulin 12/05/20 Range/Units Unknown WBC (4.0-10.0) 10^3/ uL RBC (4.1-5.3) 10^6/u L Hgb (11.5-15.3) g/dL Hct (37.0-47.0) % MCV (81-99) fl MCH (28.0-34.0) pg MCHC (30.0-36.0) g/dL RDW (12.1-15.1) % Plt Count (130-400) 10^3/c mm MPV (7.4-10.4) fL Neut % (Auto) % Lymph % (Auto) % [place] % (Auto) % Eos % (Auto) % Baso % (Auto) % Neut # (Auto) (1.8-7.7) 10^3/u L Lymph # (Auto) (0.8-4.8) 10^3/u L [place] # (Auto) (0.2-0.9) 10^3/u L Eos # (Auto) (0.0-0.8) 10^3/u L Baso # (Auto) (0.0-0.1) 10^3/u L Nucleated RBC % (a uto) % Nucleated RBCs # /100WBC PT INR Specimen Type Sample Site ABG pH (7.35-7.45) ABG pCO2 (35-45) mmHg ABG pO2 (80.0-100.0) mmH g ABG HCO3 (22-26) mmol/L ABG Base Excess (-2.0-2.0) mmol/ L Adrian Test Hematocrit (37-47) % Hgb O2 Saturation (95-100) % Carboxyhemoglobin (0.4-20.1) %THgb Methemoglobin (0.4-1.5) % Total Hemoglobin (12-16) g/dL O2 Delivery Device O2 Liters/Min % FiO2 % Slag Dumper ID Sodium Cancelled Potassium Cancelled Chloride Cancelled Carbon Dioxide Cancelled Anion Gap Cancelled BUN Cancelled Creatinine Cancelled GFR Calculation Cancelled Glucose Cancelled Calculated Osmolal ity Cancelled Calcium Cancelled Total Bilirubin Cancelled AST Cancelled ALT Cancelled Alkaline Phosphata se Cancelled NT-Pro-B Natriuret Pep Cancelled Total Protein Cancelled Albumin Cancelled Globulin Cancelled Discharge Plan Discharge Patient Disposition: Left Against Medical Advice Clinical Impression: Acute exacerbation of chronic obstructive airways disease Condition: Stable Prescriptions: No Action montelukast [Singulair] 10 mg tablet 10 mg PO DAILY RF: 0 albuterol sulfate [ProAir HFA] 90 mcg/actuation HFA aerosol inhaler 2 puff INHALATION Q4H PRN (Reason: Shortness Of Breath) RF: 0 Biktarvy 50-200-25 mg tablet 1 tab PO DAILY RF: 0 Spiriva with HandiHaler 18 mcg Capsule, W/Inhalation Device 1 cap INHALATION DAILY RF: 0 budesonide-formoterol [Symbicort] 160-4.5 mcg/actuation Hfa Aerosol Inhaler 2 puff INHALATION BID RF: 0 (DME) glucometer See Rx Instructions .Route .MEDSUPPLY Qty: 1 RF: 0 furosemide 40 mg tablet 40 mg PO DAILY RF: 0 atorvastatin 40 mg tablet 40 mg PO DAILY RF: 0 ipratropium-albuterol 0.5 mg-3 mg(2.5 mg base)/3 mL solution for nebulization 3 ml INHALATION Q6H PRN (Reason: Shortness Of Breath) RF: 0 clopidogrel 75 mg tablet 75 mg PO DAILY RF: 0 aspirin 81 mg Tablet,Delayed Release (Dr/Ec) 81 mg PO DAILY RF: 0 sulfamethoxazole-trimethoprim 800-160 mg Tablet 1 tab PO Q48H 30 Days Qty: 15 RF: 3 potassium chloride [Klor-Con M20] 20 mEq tablet,ER particles/crystals 20 meq PO DAILY RF: 0 insulin aspart U-100 [Novolog Flexpen U-100 Insulin] 100 unit/mL (3 mL) insulin pen See Rx Instructions .ROUTE .COMPLEX RF: 0 Combivent Respimat 20-100 mcg/actuation mist 1 puff INHALATION QID RF: 0 prednisone 5 mg tablet 10 mg PO DAILY RF: 0 prednisone 20 mg Tablet 40 mg PO DAILY Qty: 14 RF: 0 levofloxacin 750 mg Tablet 750 mg PO DAILY@0600 Qty: 5 RF: 0 metoprolol tartrate 25 mg Tablet 25 mg PO BID@0900,2100 Qty: 60 RF: 0 pantoprazole 40 mg Tablet,Delayed Release (Dr/Ec) 40 mg PO DAILY Qty: 30 RF: 0 Discharge Orders: Discharge ED (Routine); Ordered 12/05/20 Ordered By: Jesus Grant Referrals: Ta Salas MD [Primary Care Provider] - Discharge Diet: Advance as tolerated Discharge Activity: Resume usual activity Patient Instructions: Chronic Obstructive Pulmonary Disease (ED) Coding Level of Care Code ED Product Engineering Manager for Chg Fwd Exam Comprehensive
[2020-12-05 01:00] LABS: ABG PH Result 7.21 (7.35-7.45); Arterial Blood Gas Hematocrit 35.6 % (37-47); Base Excess ABG 20.8 mmol/L (-2.0-2.0); Blood Gas Allen Test Pos; Blood Gas Sample Type Arterial; Carboxyhemoglobin 1.8 %THgb (0.4-20.1); HCO3 ABG 54.3 mmol/L (22-26); HGB O2 Sat 93.1 % (95-100); PO2 ABG 77.5 mmHg (80.0-100.0); Total Hemoglobin 11.6 g/dL (12-16)
[2020-12-05 01:04] LABS: Blood Gas Sample Site Radial, left; Oxygen Device NC
[2020-12-05 01:05] VITALS: PULSE 79; PULSE 89; RESP 16; RESP 33; O2SAT 98
[2020-12-05] MEDS: ipratropium-albuterol 3 mL Neb INHALATION (01:05)
[2020-12-05] MEDS: ipratropium 0.5 mg/2.5 mL Neb INHALATION (01:10)
[2020-12-05 01:22] LABS: Basophils # 0.1 10^3/uL (0.0-0.1); Basophils % 0.5 %; Eosinophils # 0.1 10^3/uL (0.0-0.8); Eosinophils % 0.7 %; Hematocrit 40.8 % (37.0-47.0); Lymphocytes # 0.8 10^3/uL (0.8-4.8); Lymphocytes % 7.4 %; Mean Corpuscular HGB Conc 29.4 g/dL (30.0-36.0); Mean Corpuscular Hemoglobin 27.4 pg (28.0-34.0); Mean Corpuscular Volume 93.2 fl (81-99); Mean Platelet Volume 10.7 fL (7.4-10.4); Monocytes # 0.6 10^3/uL (0.2-0.9); Monocytes % 5.3 %; Neutrophils # 9.48 10^3/uL (1.8-7.7); Neutrophils % 85.1 %; Nucleated Red Blood Cells % 0 %; Platelet Count 153 10^3/cmm (130-400); Red Blood Count 4.38 10^6/uL (4.1-5.3); Red Cell Distribution Width 13.1 % (12.1-15.1); White Blood Count 11.1 10^3/uL (4.0-10.0)
[2020-12-05 02:58] VITALS: BP 177/100; PULSE 113; RESP 33; O2SAT 100
[2020-12-05 04:50] VITALS: PULSE 111; RESP 16; O2SAT 98
== END 2020-12-05 07:04 | disposition left against medical advice (07) ==
PROVIDERS: Emergency Provider Emergency Medicine; PCP Family Medicine
DX: J44.1 Chronic obstructive pulmonary disease with (acute) exacerbation (principal); Z53.21 Procedure and treatment not carried out due to patient leaving prior to being seen by health care provider; Z79.02 Long term (current) use of antithrombotics/antiplatelets; Z79.82 Long term (current) use of aspirin; Z79.4 Long term (current) use of insulin; I11.0 Hypertensive heart disease with heart failure; I50.9 Heart failure, unspecified; Z99.81 Dependence on supplemental oxygen; E11.9 Type 2 diabetes mellitus without complications; B20 Human immunodeficiency virus [HIV] disease; I25.2 Old myocardial infarction; F17.210 Nicotine dependence, cigarettes, uncomplicated
CPT/HCPCS: 36600; 71045; 82805; 85025; 94640; 96374; 99284; J2930; J7644

== ENCOUNTER 2020-12-15 12:59 | Inpatient (IN) | payer MEDICAID, SELFPAY ==
[2020-12-15] VITALS (49 sets, daily range): BP systolic 94–164; BP diastolic 64–105; PULSE 88–134; RESP 0–40; TEMP 36.8–37.2; O2SAT 74–100
--- NOTE | 2020-12-15 13:02 | XRR_ITS ---
PROCEDURE INFORMATION: Exam: XR Chest Exam date and time: 12/15/2020 1:02 PM Age: 60 years old Clinical indication: Cough and dyspnea; Patient HX: PT unable to give HX. Resp distress; Additional info: Dyspnea/cough TECHNIQUE: Imaging protocol: XR of the chest. Views: 1 view. COMPARISON: CR (CHEST, ) 12/05/2020 1:01 AM FINDINGS: Lungs: The lungs are over-inflated with flattening of the diaphragm indicating emphysema. No acute pulmonary infiltrates are seen. Pleural spaces: Unremarkable. No pleural effusion. No pneumothorax. Heart/Mediastinum: Unremarkable. No cardiomegaly. Bones/joints: Unremarkable. XR/XR chest 1V portable [id number] IMPRESSION: Overinflated lungs consistent with emphysema. No acute abnormality.
--- NOTE | 2020-12-15 13:03 | ECG_ITS ---
[facility] Test Date: 2020-12-15 Pat Name: Adore Broussard Department: Room: Gender: Female Director Of Blood: : 1960 Requested By: Sid Gunderson Order Number: [id number] Reading MD: Measurements Intervals [place] Rate: 122 P: 80 MT: 153 QRS: 85 QRSD: 90 T: 59 QT: 281 QTc: 401 Interpretive Statements SINUS TACHYCARDIA NONSPECIFIC T-WAVE ABNORMALITY ABNORMAL RHYTHM ECG No previous ECG available for comparison [id number]
--- NOTE | 2020-12-15 13:05 | ED_ITS ---
HPI - SOB/Dyspnea General: Chief Complaint: Shortness of Breath/Dyspnea Stated Complaint: RESP DISTRESS Time Seen by Provider: 12/15/20 13:01 History of Present Illness: HPI Narrative: 60-year-old female presents emergency room via EMS she is obtunded. Patient not able to verbally respond. She was at home and poorly responsive having difficulty breathing initially they turned her oxygen up EMS arrived they turned her oxygen back down noticed improvement in her CO2 output on capnography. On arrival here she is in hypercapnic respiratory failure. She is unable to give any verbal history. She is well-known to our department has been admitted multiple times for this in the past with severe end-stage COPD. She is noncompliant with her trilogy machine. MD elicited complaint: shortness of breath and cough Pertinent past history: COPD Onset (ago): unknown Timing: constant Severity: severe Exacerbating factors: coughing Relieving factors: nothing Known history of: COPD Associated symptoms: Reports cough; Deny myalgias, paresthesias, rash or sense of impending doom Treatment prior to arrival: oxygen and bronchodilator Review of Systems General: Reports: ROS unobtainable due to medical condition [facility] ED PFSH: Medical History BMI less than 19,adult Chest pain CHF (congestive heart failure) Ejection fraction 57% on echocardiogram done 05/15/2020 Chronic respiratory failure with hypoxia and hypercapnia Chronic steroid use Congestive heart failure COPD (chronic obstructive pulmonary disease) Decompensated heart failure Diabetes Edema of left lower extremity GERD (gastroesophageal reflux disease) HIV (human immunodeficiency virus infection) Nicotine addiction NSTEMI (non-ST elevated myocardial infarction) 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 Protein calorie malnutrition Protein-calorie malnutrition, moderate Sinus tachycardia Troponin level elevated Surgical History H/O laparoscopy History of History of hysterectomy Family History Mother COPD (chronic obstructive pulmonary disease) Father CAD (coronary artery disease) Social History Smoking and tobacco status: current every day smoker cigarettes Years cigarettes smoked: 50 [ Other cigarette details: Hx of 1 PPD x 15 Years ] Second hand smoke exposure: Yes Alcohol intake: current Alcohol intake frequency: holidays/special occasions only Lives independently: Yes Household members: none Marital status: / Current occupational status: disabled History of recent travel: No Current gender identity: Female Female Reproductive History: Date of last menstrual period: 06/27/20 Physical Exam Const: GENERAL APPEARANCE: cooperative and comfortable HENMT: COMMON NORMALS: normocephalic, atraumatic and hearing grossly normal bilaterally HEAD & SCALP: normocephalic and atraumatic Neck/C-Spine: GENERAL: Yes JVD Resp: EFFORT & INSPECTION: Yes tachypneic and Yes labored AUSCULTATION: wheezes (Diffuse, scant) and diminished lung sounds Cardio: COMMON NORMALS: regular rate, regular rhythm and No murmurs present (Cardio) RATE: regular rate RHYTHM: regular rhythm GI: COMMON NORMALS: Soft to palpation and No hepatosplenomegaly present AUSCULTATION: Yes normoactive bowel sounds PALPATION: Yes Soft to palpation, No Tenderness to palpation present (GI), No Guarding due to palpation present (GI) and Yes No hepatosplenomegaly present Procedures Central Line Placement Right SC: Time Out Performed: Yes Patient Placed on Monitor/Pulse Ox: Yes MD Prep: mask, gown and gloves Central Line Prep: Chlorhexidine scrub and sterile drapes applied Local Anesthetic: lidocaine 1% Amount of anesthesia used (mL): 5 Ultrasound Used for Placement: Yes Central Line Lumen Inserted: triple Post Procedure: sutured in place, good blood return, all ports aspirated, flushed, capped and sterile dressing applied Post Procedure X-Ray: tip of catheter in good position and no pneumothorax seen Patient Tolerated Procedure: well and no complications Complications: none Course Vital Signs: Vital signs: Vital Signs Temperature 96.4 F L 12/16/20 04:00 Pulse Rate 106 H 12/16/20 06:36 Respiratory Rate 28 H 12/16/20 05:45 Blood Pressure 137/75 12/16/20 05:45 Pulse Oximetry 98 12/16/20 06:36 MDM - SOB/Dyspnea MDM Narrative: Medical decision making narrative: acute hypercapnic resp failure along with hyperkalemia. Pt admited ti the ICU acfter consultation with hospitalist. Hospitalist requested that we place a central line because we have a difficult time maintaining IV access. Placed in the right subclavian without difficulty. Lab Data: Labs: Lab Results 12/15/20 12/15/20 12/15/20 13:35 13:35 13:35 WBC 4.7 10^3/uL 10^3/ uL (4.0-10.0) RBC 4.28 10^6/uL 10^6 /uL (4.1-5.3) Hgb 11.7 g/dL g/dL (11.5-15.3) Hct 40.8 % % (37.0-47.0) MCV 95.3 fl fl (81-99) MCH 27.3 pg L pg (28.0-34.0) MCHC 28.7 g/dL L g/dL (30.0-36.0) RDW 13.7 % % (12.1-15.1) Plt Count 148 10^3/cmm 10^3 /cmm (130-400) MPV 11.1 fL H fL (7.4-10.4) Neut % (Auto) 71.4 % % Lymph % (Auto) 17.8 % % Lanier % (Auto) 8.9 % % Eos % (Auto) 0.4 % % Baso % (Auto) 0.4 % % Neut # (Auto) 3.36 10^3/uL 10^3 /uL (1.8-7.7) Lymph # (Auto) 0.8 10^3/uL 10^3/ uL (0.8-4.8) Lanier # (Auto) 0.4 10^3/uL 10^3/ uL (0.2-0.9) Eos # (Auto) 0.0 10^3/uL 10^3/ uL (0.0-0.8) Baso # (Auto) 0.0 10^3/uL 10^3/ uL (0.0-0.1) Nucleated RBC % (a uto) 0 % % Nucleated RBCs # 0.0 /100WBC /100W BC Specimen Type Sample Site ABG pH ABG pCO2 ABG pO2 ABG HCO3 ABG O2 Saturation ABG Base Excess Adrian Test A-a O2 Gradient Hematocrit Hgb O2 Saturation Carboxyhemoglobin Methemoglobin Total Hemoglobin Ionized Calcium O2 Delivery Device FiO2 Tidal Volume Executive Associate ID Sodium 136 mmol/L mmol/L (136-145) Potassium 5.8 mmol/L H mmol /L (3.5-5.1) Chloride 88 mmol/L L mmol/ L (98-107) Carbon Dioxide 48 mmol/L H* mmol /L (22-29) Anion Gap 5.8 (5-19) BUN 12 mg/dL mg/dL (6-20) Creatinine 0.4 mg/dL L mg/dL (0.5-0.9) GFR Calculation 163.4 mL/min H mL /min (90-130) Glucose 111 mg/dL mg/dL (65-115) Calculated Osmolal ity 282 mOsm/kg L mOs m/kg (285-295) Calcium 9.1 mg/dL mg/dL (8.5-10.5) Total Bilirubin 0.3 mg/dL mg/dL (0.15-1.2) AST 24 U/L U/L (0-32) ALT 19 U/L U/L (0-33) Alkaline Phosphata se 55 IU/L IU/L (35-105) Lactate Dehydrogen ase Troponin T Baselin e 130 ng/L H* ng/L (0-10) C-Reactive Protein Total Protein 5.2 g/dL L g/dL (6.6-8.7) Albumin 3.4 g/dL L g/dL (3.5-5.2) Globulin 1.8 g/dL g/dL (1.3-4.6) Procalcitonin 12/15/20 12/15/20 13:35 13:36 WBC RBC Hgb Hct MCV MCH MCHC RDW Plt Count MPV Neut % (Auto) Lymph % (Auto) Lanier % (Auto) Eos % (Auto) Baso % (Auto) Neut # (Auto) Lymph # (Auto) Lanier # (Auto) Eos # (Auto) Baso # (Auto) Nucleated RBC % (a uto) Nucleated RBCs # Specimen Type Arterial Sample Site Brachial, left ABG pH 7.22 L (7.35-7.45) ABG pCO2 130.0 mmHg H* mmH g (35-45) ABG pO2 91.3 mmHg mmHg (80.0-100.0) ABG HCO3 53.2 mmol/L H mmo l/L (22-26) ABG O2 Saturation 97.7 ABG Base Excess 20.4 mmol/L H mmo l/L (-2.0-2.0) Adrian Test N/a A-a O2 Gradient 14.8 mmHg H mmHg (5-10) Hematocrit 34.2 % L % (37-47) Hgb O2 Saturation 95.6 % % (95-100) Carboxyhemoglobin 1.2 %THgb %THgb (0.4-20.1) Methemoglobin 0.9 % % (0.4-1.5) Total Hemoglobin 11.2 g/dL L g/dL (12-16) Ionized Calcium 1.2 mmol/L mmol/L (1.1-1.4) O2 Delivery Device Bipap FiO2 50.0 % % Tidal Volume 0.40 Executive Associate ID glc Sodium 137.0 mmol/L mmol /L (131-143) Potassium 4.8 mmol/L mmol/L (3.5-5.0) Chloride Carbon Dioxide Anion Gap BUN Creatinine GFR Calculation Glucose 140.0 mg/dL H mg/ dL (70-115) Calculated Osmolal ity Calcium Total Bilirubin AST ALT Alkaline Phosphata se Lactate Dehydrogen ase 255 U/L H U/L (135-214) Troponin T Baselin e C-Reactive Protein 1.7 mg/L mg/L (0.0-4.9) Total Protein Albumin Globulin Procalcitonin 0.09 ng/mL ng/mL (0-0.5) Discharge Plan Discharge Patient Disposition: Admitted As Inpatient Admit Provider: Dhara Oneil Clinical Impression: Acute exacerbation of chronic obstructive airways disease, Acute hypercapnic respiratory failure, Elevated troponin, Acute hyperkalemia Condition: Stable Coding Level of Care Code ED Gem Stone Cutter for Chg Fwd Exam Detailed
[2020-12-15] MEDS: ondansetron 2 mg/ML SDV 2 mL 4 MG IVP (13:30)
[2020-12-15 13:44] LABS: Basophils % 0.4 %; Eosinophils % 0.4 %; Hematocrit 40.8 % (37.0-47.0); Hemoglobin 11.7 g/dL (11.5-15.3); Lymphocytes # 0.8 10^3/uL (0.8-4.8); Lymphocytes % 17.8 %; Mean Corpuscular HGB Conc 28.7 g/dL (30.0-36.0); Mean Corpuscular Hemoglobin 27.3 pg (28.0-34.0); Mean Corpuscular Volume 95.3 fl (81-99); Mean Platelet Volume 11.1 fL (7.4-10.4); Monocytes # 0.4 10^3/uL (0.2-0.9); Monocytes % 8.9 %; Neutrophils # 3.36 10^3/uL (1.8-7.7); Neutrophils % 71.4 %; Nucleated Red Blood Cells % 0 %; Platelet Count 148 10^3/cmm (130-400); Red Blood Count 4.28 10^6/uL (4.1-5.3); Red Cell Distribution Width 13.7 % (12.1-15.1); White Blood Count 4.7 10^3/uL (4.0-10.0)
[2020-12-15 13:46] LABS: ABG PH Result 7.22 (7.35-7.45); Alveolar-Arterial Oxygen Gradi 14.8 mmHg (5-10); Arterial Blood Gas Hematocrit 34.2 % (37-47); Base Excess ABG 20.4 mmol/L (-2.0-2.0); Blood Gas Operator Identificat glc; Blood Gas Sample Site Brachial, left; Blood Gas Sample Type Arterial; Carboxyhemoglobin 1.2 %THgb (0.4-20.1); HCO3 ABG 53.2 mmol/L (22-26); HGB O2 Sat 95.6 % (95-100); Ionized Calcium Level - ABG 1.2 mmol/L (1.1-1.4); Methemoglobin 0.9 % (0.4-1.5); Oxygen Device BIPAP; Oxygen Saturation ABG 97.7; PO2 ABG 91.3 mmHg (80.0-100.0); Potassium Level - ABG 4.8 mmol/L (3.5-5.0); Total Hemoglobin 11.2 g/dL (12-16)
[2020-12-15 14:12] LABS: Alanine Aminotransferase 19 U/L (0-33); Albumin Level 3.4 g/dL (3.5-5.2); Alkaline Phosphatase 55 IU/L (35-105); Blood Urea Nitrogen 12 mg/dL (6-20); Calcium 9.1 mg/dL (8.5-10.5); Chloride 88 mmol/L (98-107); Globulin 1.8 g/dL (1.3-4.6); Glomerular Filtration Rate 163.4 mL/min (90-130); Glucose 111 mg/dL (65-115); Osmolality Calculated 282 mOsm/kg (285-295); Sodium 136 mmol/L (136-145); Total Bilirubin 0.3 mg/dL (0.15-1.2); Total Protein 5.2 g/dL (6.6-8.7)
[2020-12-15 14:17] LABS: Troponin(5th) Baseline 130 ng/L (0-10)
[2020-12-15 14:18] LABS: Anion Gap 5.8 (5-19); Aspartate Amino Transferase 24 U/L (0-32); Carbon Dioxide 48 mmol/L (22-29); Potassium 5.8 mmol/L (3.5-5.1)
--- NOTE | 2020-12-15 14:42 | P.HP_ITS ---
Providers/Chief Complaint Primary Care Provider: Ta Salas MD Chief Complaint: RESP DISTRESS History of Present Illness Adore Broussard is a 60 year old female who has hx of HIV, chronic hypoxic hypercarbic respiratory failure, uses 2 L of oxygen at home, trilogy dependent, active smoker, noncompliant with her medications, multiple admissions in the past for respiratory distress, was sent by her niece today after she found her on the floor. As per the niece they have been trying to place her in a senior care because at home she is living a miserable life not able to take care of herself at all. She needs assistance for her daily activities. She is an active smoker and has not quit despite her multiple admission the hospital for COPD exacerbations. She is losing weight not able to eat properly because of worsening shortness of breath. Today when niece checked on her she was found on the floor with multiple roaches around her body, she was soiled in her excreta. EMS was called. She was put on BiPAP for her hypercapnic respiratory failure, she is able to open her eyes spontaneously however not responding appropriately to my questions and commands. I did call both of her nieces, Charo Guerin did tell me that Ms. Broussard would never want chest compression or intubation in case of worsening of her respiratory distress or cardiac arrest. I did tell her about hypercapnic acute respiratory failure, NSTEMI and her encephalopathy. I requested Dr. Reyes if he could place a central line in the ER. For her hyperkalemia I have given her insulin with D50 amp, she cannot take Kayexalate p.o. can try HI regimen, EKG without hyperkalemic changes Review of Systems General: Reports: ROS unobtainable due to mental status (Hypercapnic encephalopathy) Medications/Allergies Home Medications Medication Instructions Recorded Confirmed Last Taken Type albuterol sulfate 90 mcg/actuation 2 puff INHALATION Q4H PRN 10/03/19 12/15/20 Unknown History aerosol inhaler montelukast 10 mg tablet 10 mg PO DAILY 10/03/19 12/15/20 08/28/20 History Biktarvy 1 tab PO DAILY 04/23/20 12/15/20 09/18/20 History Spiriva with HandiHaler 1 cap INHALATION DAILY 05/05/20 12/15/20 09/18/20 History budesonide-formoterol [Symbicort] 2 puff INHALATION BID 05/05/20 12/15/20 Unknown History glucometer #1 ea 06/16/20 12/15/20 Unknown Rx aspirin 81 mg PO DAILY 10/13/20 12/15/20 Unknown History atorvastatin 40 mg PO DAILY 10/13/20 12/15/20 Unknown History clopidogrel 75 mg PO DAILY 10/13/20 12/15/20 Unknown History furosemide 40 mg PO DAILY 10/13/20 12/15/20 Unknown History ipratropium-albuterol 3 ml INHALATION Q6H PRN 10/13/20 12/15/20 Unknown History sulfamethoxazole-trimethoprim 1 tab PO Q48H 30 Days #15 tab 10/15/20 12/15/20 Unknown Rx Combivent Respimat 1 puff INHALATION QID 10/28/20 12/15/20 Unknown History insulin aspart U-100 [Novolog See Rx Instructions .ROUTE .COMPLEX 10/28/20 12/15/20 Unknown History Flexpen U-100 Insulin] potassium chloride [Klor-Con M20] 20 meq PO DAILY 10/28/20 12/15/20 Unknown History prednisone 10 mg PO DAILY 11/17/20 12/15/20 Unknown History levofloxacin 750 mg PO DAILY@0600 #5 tab 11/20/20 12/15/20 Unknown Rx metoprolol tartrate 25 mg PO BID@0900,2100 #60 tab 11/20/20 12/15/20 Unknown Rx pantoprazole 40 mg PO DAILY #30 tab 11/20/20 12/15/20 Unknown Rx prednisone 40 mg PO DAILY #14 tab 11/20/20 12/15/20 Unknown Rx Allergies Allergy/AdvReac Type Severity Reaction Status Date / Time Penicillins Allergy ALGY-Difficulty Verified 12/15/20 13:00 Breathing phenobarbital Allergy ALGY-Hives Verified 12/15/20 13:00 Tetanus Vaccines and Toxoid Allergy ALGY-Hives Verified 12/15/20 13:00 PFSH Acute PFSH: Medical History BMI less than 19,adult Chest pain CHF (congestive heart failure) Ejection fraction 57% on echocardiogram done 05/15/2020 Chronic respiratory failure with hypoxia and hypercapnia Chronic steroid use Congestive heart failure COPD (chronic obstructive pulmonary disease) Decompensated heart failure Diabetes Edema of left lower extremity GERD (gastroesophageal reflux disease) HIV (human immunodeficiency virus infection) Nicotine addiction NSTEMI (non-ST elevated myocardial infarction) 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 Protein calorie malnutrition Protein-calorie malnutrition, moderate Sinus tachycardia Troponin level elevated Surgical History H/O laparoscopy History of History of hysterectomy Family History Mother COPD (chronic obstructive pulmonary disease) Father CAD (coronary artery disease) Social History Smoking and tobacco status: current every day smoker cigarettes Years cigarettes smoked: 50 [ Other cigarette details: Hx of 1 PPD x 15 Years ] Second hand smoke exposure: Yes Alcohol intake: current Alcohol intake frequency: holidays/special occasions only Lives independently: Yes Household members: none Marital status: / Current occupational status: disabled History of recent travel: No Current gender identity: Female Female Reproductive History: Date of last menstrual period: 06/27/20 Vitals/I&O/Wt Last Vital Signs Temp 98.2 F 12/15/20 13:01 Pulse 110 H 12/15/20 13:45 Resp 40 H 12/15/20 13:01 BP 139/88 12/15/20 13:45 Pulse Ox 100 12/15/20 13:45 Weight last 48 hrs Weight 36.287 kg Physical Exam Narrative: EXAM NARRATIVE: Elderly female who appears more than stated age Cachectic, malnourished Disheveled, unkept appearance Extremities soiled with feces, Blisters noted around her heels Edema of lower extremities bilaterally with venous dermatitis Her eyes are open however she is not responding to my questions and commands appropriately Bilateral assisted breath sounds with BiPAP Neuro exam, her extremities have edema Abdomen soft nontender No joint swelling Onychomycosis Data : 12/15/20 13:35 12/15/20 13:35 A&P Assessment and plan (1) Acute exacerbation of chronic obstructive airways disease: Status: Acute (2) Acute hypercapnic respiratory failure: Status: Acute (3) Acute hyperkalemia: Status: Acute (4) NSTEMI (non-ST elevated myocardial infarction): Status: Acute (5) HIV (human immunodeficiency virus infection): Status: Acute Qualifiers: HIV symptom status: asymptomatic Qualified Code(s): Z21 - Asymptomatic human immunodeficiency virus [HIV] infection status (6) Diabetes: Status: Acute (7) Protein-calorie malnutrition, severe: Status: Acute Additional A&P Information Acute on chronic hypercapnic, hypoxic respiratory failure End-stage COPD Secondary to active smoking and noncompliance Severe protein calorie malnourishment with BMI 15, High risk for intubation however niece Charo Guerin stated that she is DNR/DNI, ICU nurse did witness over the phone as well We will keep her on BiPAP for now repeat ABG Acute hyperkalemia We will give her insulin, D50 amp calcium gluconate and albuterol No EKG changes NSTEMI: Start ACS protocol start therapeutic dose of Lovenox requested echo no active chest pain however, patient is not able to provide much detail because of her encephalopathy secondary to hypercapnia Guarded prognosis High risk for mortality morbidity including cardiac arrest and respiratory failure, this was conveyed to her family DNR/DNI Liquid diet and advance if her mentation improves Continue her empirical antibiotics and HIV medications She can be transferred out of ICU if stays stable in next few hours Severe protein calorie malnourishment will request dietary consult, BMI 15 Attestations Medical Necessity Statement*: Carries high risk for mortality morbidity anticipating stay in the hospital cross more than 2 midnights Time Spent in Patient Care: Greater than 35 minutes Coding Level of Care Code Acute Brand Recorder for g Fwd Diagnoses Acute exacerbation of chronic obstructive airways disease J44.1 Acute hypercapnic respiratory failure J96.02 Acute hyperkalemia E87.5 NSTEMI (non-ST elevated myocardial infarction) I21.4 HIV (human immunodeficiency virus infection) Z21 HIV symptom status: asymptomatic Diabetes E11.9 Protein-calorie malnutrition, severe E43
[2020-12-15] MEDS: nitroglycerin 1 gm/inch oint Pkt 0.5 INCH TOPICAL (14:50)
[2020-12-15] MEDS: enoxaparin 40 mg/0.4 mL Syringe SUBCUT ×2 (14:51→21:23)
[2020-12-15] MEDS: aspirin 300 mg Supp PR (15:00)
--- NOTE | 2020-12-15 15:03 | ECG_ITS ---
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 Measurements Intervals [place] Rate: 118 P: -26 OH: 112 QRS: -29 QRSD: 83 T: -1 QT: 308 QTc: 432 Interpretive Statements SINUS TACHYCARDIA WITH SHORT OH INTERVAL LEFT ATRIAL ENLARGEMENT [-0.15mV P-WAVE IN V1/V2] BORDERLINE LEFT AXIS DEVIATION [QRS AXIS < -20] POSSIBLE LEFT VENTRICULAR HYPERTROPHY [VOLTAGE CRITERIA PLUS LAE OR QRS WIDENING] MODERATE ST DEPRESSION [0.05+ mV ST DEPRESSION] Compared to ECG 12/15/2020 13:11:37 Short OH interval now present Atrial abnormality now present Further interpretation is not possible because of the baseline artifact. Need to repeat the study Electronically Signed On 12-17-2020 23:36:19 CDT by Darren Blankenship M.D. [id number]
[2020-12-15 15:10] LABS: C Reactive Protein 1.7 mg/L (0.0-4.9)
[2020-12-15 15:16] LABS: Procalcitonin 0.09 ng/mL (0-0.5)
[2020-12-15 15:34] LABS: Blood Gas Allen Test Pos; Blood Gas Sample Type Arterial; Ionized Calcium Level - ABG 1.2 mmol/L (1.1-1.4); Methemoglobin 0.8 % (0.4-1.5); Oxygen Device BIPAP
[2020-12-15 15:57] LABS: Lactate Dehydrogenase 255 U/L (135-214)
--- NOTE | 2020-12-15 16:20 | XRR_ITS ---
PROCEDURE INFORMATION: Exam: XR Chest Exam date and time: 12/15/2020 4:20 PM Age: 60 years old Clinical indication: Device placement; Patient HX: History--cl placement; Additional info: Line placement TECHNIQUE: Imaging protocol: XR of the chest. Views: 1 view. COMPARISON: CR XR chest 1V portable [id number] 12/15/2020 1:14 PM FINDINGS: Tubes, catheters and devices: Right subclavian central line placement with tip over the right atrium. Lungs: The lung bases are over exposed with loss of visible lung markings. Severe emphysema. Pleural spaces: Unremarkable. No pleural effusion. No pneumothorax. Heart/Mediastinum: Unremarkable. No cardiomegaly. Bones/joints: Unremarkable. XR/XR chest 1V portable [id number] IMPRESSION: 1. Central line placement with tip over the right atrium. No pneumothorax.
[2020-12-15] MEDS: insulin regular-human 100 units/1 mL 10 UNIT IVP (16:21)
[2020-12-15] MEDS: dextrose 50% syringe 50 mL IVP (16:22)
[2020-12-15 16:44] LABS: ABG PH Result 7.44 (7.35-7.45); Alveolar-Arterial Oxygen Gradi 37.3 mmHg (5-10); Arterial Blood Gas Hematocrit 30.2 % (37-47); Base Excess ABG 22.4 mmol/L (-2.0-2.0); Blood Gas Sample Site Radial, left; Carboxyhemoglobin 1.1 %THgb (0.4-20.1); HGB O2 Sat 98.4 % (95-100); Oxygen Saturation ABG > 100.0; Potassium Level - ABG 4.7 mmol/L (3.5-5.0); Total Hemoglobin 9.8 g/dL (12-16)
[2020-12-15 16:45] LABS: Blood Gas Tidal Volume 0.45
[2020-12-15 16:46] LABS: ABG PCO2 74.3 mmHg (35-45)
[2020-12-15 17:09] LABS: Troponin 5 2HR 127.4 ng/L (0-10); Troponin 5 2HR Delta -2.6 ABS# (0-10)
[2020-12-15 18:19] LABS: Glucose Point of Care 165 mg/dL (70-110)
--- NOTE | 2020-12-15 19:03 | ECG_ITS ---
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 Measurements Intervals [place] Rate: 107 P: 86 MA: 133 QRS: 85 QRSD: 100 T: 80 QT: 320 QTc: 428 Interpretive Statements SINUS TACHYCARDIA RIGHT ATRIAL ENLARGEMENT [0.3mV P-WAVE] POSSIBLE LEFT ATRIAL ENLARGEMENT [-0.1mV P-WAVE IN V1/V2] ST ELEVATION, PROBABLY EARLY REPOLARIZATION [ST ELEVATION WITH NORMALLY INFLECTED T-WAVE] Compared to ECG 12/15/2020 14:55:39 Early repolarization now present Short MA interval no longer present ST (T wave) deviation still present Electronically Signed On 12-17-2020 23:41:04 CDT by Darren Blankenship M.D. [id number]
[2020-12-15] MEDS: ipratropium-albuterol 3 mL Neb INHALATION (20:51)
[2020-12-15 20:56] LABS: Troponin 5 6HR Delta 6.8 ng/L (0-12)
--- NOTE | 2020-12-15 21:00 | PC.NURSE ---
PHI Pricilla Andersen called and informed nurse that Rafa Tyler may be added to the patients PHI, he is the patients son.
[2020-12-15 21:07] LABS: Troponin 5 6HR 136.8 ng/L (0-10)
[2020-12-15 21:18] LABS: Glucose Point of Care 79 mg/dL (70-110)
[2020-12-16] VITALS (96 sets, daily range): BP systolic 113–175; BP diastolic 62–121; PULSE 90–144; RESP 0–39; TEMP 35.8–37.1; O2SAT 88–100
[2020-12-16] MEDS: ipratropium-albuterol 3 mL Neb INHALATION ×2 (02:58→08:16)
[2020-12-16 04:48] LABS: Hematocrit 30.6 % (37.0-47.0); Hemoglobin 9.1 g/dL (11.5-15.3); Lymphocytes # 0.5 10^3/uL (0.8-4.8); Lymphocytes % 11.1 %; Mean Corpuscular HGB Conc 29.7 g/dL (30.0-36.0); Mean Corpuscular Hemoglobin 27.1 pg (28.0-34.0); Mean Corpuscular Volume 91.1 fl (81-99); Mean Platelet Volume 11.2 fL (7.4-10.4); Monocytes # 0.1 10^3/uL (0.2-0.9); Monocytes % 2.7 %; Neutrophils # 3.89 10^3/uL (1.8-7.7); Nucleated Red Blood Cells % 0 %; Platelet Count 162 10^3/cmm (130-400); Red Blood Count 3.36 10^6/uL (4.1-5.3); Red Cell Distribution Width 13.3 % (12.1-15.1); White Blood Count 4.5 10^3/uL (4.0-10.0)
[2020-12-16 05:03] LABS: Alanine Aminotransferase 12 U/L (0-33); Alkaline Phosphatase 48 IU/L (35-105); Anion Gap 7.4 (5-19); Aspartate Amino Transferase 19 U/L (0-32); Blood Urea Nitrogen 16 mg/dL (6-20); Calcium 8.9 mg/dL (8.5-10.5); Chloride 86 mmol/L (98-107); Globulin 1.8 g/dL (1.3-4.6); Glomerular Filtration Rate 126.3 mL/min (90-130); Glucose 123 mg/dL (65-115); Osmolality Calculated 283 mOsm/kg (285-295); Potassium 5.4 mmol/L (3.5-5.1); Sodium 135 mmol/L (136-145); Total Bilirubin 0.3 mg/dL (0.15-1.2); Total Protein 4.8 g/dL (6.6-8.7)
[2020-12-16 05:34] LABS: Carbon Dioxide 47 mmol/L (22-29)
--- NOTE | 2020-12-16 05:50 | PC.NURSE ---
Shift Note Frequent safety and comfort rounds continue. Orders and/or nursing care completed as indicated. Patient monitored for response to intervention and treatment(s). Education provided includes resp. distress. Patient needs further reinforcement. Right subclavian central line and right forearm IV remain saline locked. Patient opens eyes spontaneously but remains nonverbal. No wounds noted at this time. Left heel has a blister and there is bilateral bruising to upper arms. BIPAP is at 30% FiO2. Will continue to monitor.
[2020-12-16 07:37] LABS: Glucose Point of Care 142 mg/dL (70-110)
[2020-12-16] MEDS: dextrose 50% syringe 50 mL 25 ML IVP (08:55)
[2020-12-16] MEDS: insulin regular-human 10 UNIT in SYRINGE 1 EACH IVP (08:55)
[2020-12-16] MEDS: aspirin 81 mg EC Tablet PO (08:56)
[2020-12-16] MEDS: metoprolol succinate ER (24 HR) 25 mg Tablet 12.5 MG PO (08:56)
[2020-12-16] MEDS: clopidogrel 75 mg Tablet PO (08:56)
[2020-12-16] MEDS: sulfamethoxazole-trimeth DS 160-800 mg Tablet 1 TAB PO (08:56)
[2020-12-16] MEDS: montelukast sodium 10 mg Tablet PO (08:56)
[2020-12-16] MEDS: atorvastatin 40 mg Tablet 80 MG PO (08:56)
[2020-12-16] MEDS: pantoprazole DR 40 mg Tablet PO (08:56)
[2020-12-16] MEDS: FUROsemide 20 mg Tablet PO (08:57)
[2020-12-16] MEDS: enoxaparin 40 mg/0.4 mL Syringe SUBCUT ×2 (08:59→21:21)
[2020-12-16] MEDS: morphine 4 mg/mL SDV 1 mL IVP (09:25)
[2020-12-16 12:16] LABS: Glucose Point of Care 191 mg/dL (70-110)
[2020-12-16] MEDS: levalbuterol 1.25 mg/3 mL Neb INHALATION ×2 (14:08→20:12)
--- NOTE | 2020-12-16 15:24 | PM.PN ---
Subjective Subjective: Interval history: This morning patient started complaining of chest pain as soon as we took of her BiPAP EKG did show changes of T wave inversion in the lateral leads, I gave her morphine 4 mg IV push and Cardizem 10 mg IV push for tachyarrhythmia her heart rate was in 140s Her symptoms improved after Cardizem push, Clinically she looks extremely dry Patient was asked about angiogram, angioplasty if needed she refused straightaway and nurses were present in the ICU room She does not want chest compressions, intubation or any aggressive intervention Agreeable to go to senior care once stable Plan to transfer out of ICU today to [facility] Vitals/I&O/Wt Last Vital Signs Temp 96.4 F L 12/16/20 04:00 Pulse 110 H 12/16/20 15:00 Resp 26 H 12/16/20 15:00 BP 148/85 12/16/20 15:00 Pulse Ox 93 12/16/20 15:00 12/16/20 12/16/20 12/16/20 06:59 14:59 22:59 Intake Total 480.1 / 480.1 Output Total 275 / 275 Balance -275 / -275 480.1 / 480.1 Weight last 48 hrs Weight 36.287 kg Physical Exam Narrative: EXAM NARRATIVE: Lethargic fatigue cachectic malnourished female Unkept appearance Blister of left foot intact no active drainage Bilateral lower extremity edema Muscle mass loss EOMI, PERRLA Her mentation did improve on BiPAP No neurological deficits Able to answer my questions appropriately Diminished breath sounds with mild wheezing Currently on BiPAP FiO2 30% saturating 99 100% Data : 12/16/20 04:10 12/16/20 04:10 Micro: Microbiology 12/15/20 15:00 Blood Culture - Preliminary Blood SPECIMEN COLLECTED 12/15/20 15:11 Blood Culture - Preliminary Blood SPECIMEN COLLECTED A&P Assessment and plan (1) Protein-calorie malnutrition, severe: Status: Acute (2) NSTEMI (non-ST elevated myocardial infarction): Status: Acute (3) Acute exacerbation of chronic obstructive airways disease: Status: Acute (4) Acute hypercapnic respiratory failure: Status: Acute (5) Elevated troponin: Status: Acute (6) Acute hyperkalemia: Status: Acute (7) Nicotine addiction: Status: Acute Qualifiers: Nicotine product type: cigarettes Substance use status: other nicotine-induced disorder Qualified Code(s): F17.218 - Nicotine dependence, cigarettes, with other nicotine-induced disorders (8) HIV (human immunodeficiency virus infection): Status: Acute Qualifiers: HIV symptom status: asymptomatic Qualified Code(s): Z21 - Asymptomatic human immunodeficiency virus [HIV] infection status (9) Chronic steroid use: Status: Acute (10) Diabetes: Status: Acute Additional A&P Information Acute on chronic hypercarbic hypoxic respiratory failure Hypercarbia improved on BiPAP overnight As soon as we took off her BiPAP she started complaining of chest pain with air hunger She was put on BiPAP again her mentation has improved She has stayed afebrile, no leukocytosis, procalcitonin unremarkable holding off on antibiotics for now Continue steroids NSTEMI: Continue ACS protocol patient refused angiogram angioplasty and seeing wreath inspector this was discussed in front of ICU nurse and respiratory therapist He did receive morphine EKG showed T wave inversion in lateral leads We will follow up with echo Hyperkalemia: We will give her another dose of insulin D50 and try CA Kayexalate Potassium trending down from 5.8-5.4 today HIV: Sexual transmission Continue empirical regimen As per the family 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, some concerns regarding drug abuse as well DNR/DNI High risk for mortality and morbidity We will keep her on liquid diet for now give her BiPAP break and let her eat For protein calorie malnourishment will request dietary consult once she is able to tolerate her diet Attestations Medical Necessity Statement*: Transfer out of ICU Time Spent in Patient Care: 16 - 35 minutes Coding Level of Care Code Acute Esol Instructor for hossein Dickerson Diagnoses Protein-calorie malnutrition, severe E43 NSTEMI (non-ST elevated myocardial infarction) I21.4 Acute exacerbation of chronic obstructive airways disease J44.1 Acute hypercapnic respiratory failure J96.02 Elevated troponin R77.8 Acute hyperkalemia E87.5 Nicotine addiction F17.218 Nicotine product type: cigarettes Substance use status: other nicotine-induced disorder HIV (human immunodeficiency virus infection) Z21 HIV symptom status: asymptomatic Chronic steroid use Diabetes E11.9
--- NOTE | 2020-12-16 17:47 | USCV_ITS ---
Bobo Adore Age: 60 Gender: F : 1960 Exam Date: 12/16/2020 06:40 Ordering Phys: Dhara Oneil MD Technologist: Exam Location: [facility] [place] Indication: NSTEMI BP: 147 / 86 HR: 58 Rhythm: Sinus Technical Quality: Technically difficult study MEASUREMENTS (Male / Female) Normal Values 2D ECHO LV Diastolic Diameter PLAX 3.8 cm 4.2 - 5.9 / 3.9 - 5.3 cm LV Systolic Diameter PLAX 2.3 cm IVS Diastolic Thickness 0.9 cm 0.6 - 1.0 / 0.6 - 0.9 cm IVS Systolic Thickness 0.9 cm LVPW Diastolic Thickness 0.9 cm 0.6 - 1.0 / 0.6 - 0.9 cm LVPW Systolic Thickness 1.1 cm LVOT Diameter 2.0 cm LV Ejection Fraction 2D Teich 72.3 % LV Ejection Fraction MOD 2C 65.8 % LV Ejection Fraction 2C AL 65.5 % LA Diameter 2.6 cm LA Width 2.9 cm LA Height 2.9 cm RA Width 2.5 cm RA Height 2.9 cm Aorta at Sinotubular Diameter 2.5 cm DOPPLER AV Peak Velocity 110.0 cm/s LVOT Peak Velocity 89.0 cm/s AV Area Cont Eq vti 2.3 cm squared AV Area Cont Eq pk 2.7 cm squared MV Area PHT 5.0 cm squared Mitral E to A Ratio 3.5 MV E' Velocity 66.5 cm/s Mitral E to MV E' Ratio 6.8 Mitral E to LV E' Lateral Ratio 9.2 Mitral E to LV E' Septal Ratio 5.4 TR Peak Velocity 135.7 cm/s TR Peak Gradient 7.4 mmHg TV Peak E Velocity 72.0 cm/s Right Atrial Pressure 3.0 mmHg Pulmonary Artery Systolic Pressu 10.4 mmHg FINDINGS Left Ventricle Normal left ventricular size and systolic function, EF 56 %. Mild left ventricular hypertrophy. No regional wall motion abnormalities. Right Ventricle The right ventricle is normal in size and function. Right Atrium The right atrium is normal in size. Left Atrium The left atrium is normal in size. Mitral Valve No gross abnormalities noted Aortic Valve No gross abnormalities noted Tricuspid Valve No gross abnormalities noted Pulmonic Valve Pulmonic valve not well visualized. Pericardium Normal pericardium without effusion. Aorta Normal ascending aorta dimension. CONCLUSIONS Normal left ventricular size and systolic function, EF 56 %. Mild left ventricular hypertrophy. No regional wall motion abnormalities. No significant stenotic or regurgitant lesions. Normal cardiac chamber sizes There is no pericardial effusion. There are no intracardiac masses. Technically somewhat difficult study Dr Darren Blankenship MD FACC (Electronically Signed) Final Date: 16 December 2020 23:21 S
[2020-12-16 18:05] LABS: Glucose Point of Care 104 mg/dL (70-110)
--- NOTE | 2020-12-16 18:20 | PC.NURSE ---
Shift Note Frequent safety and comfort rounds continue. Orders and nursing care completed as indicated. Pt on still requiring BIPAP, see respiratory documentation. HR elevated to 150s at 0930 this am. Physician notified and reported to patient room. EKG ordered, morphine, and cardizem ordered and given. Patient placed back on BIPAP. Patient monitored for response to intervention and treatments, see vital sign and mar documentation. Patient to be transferred to [facility] later this evening. Family called and updated on event and transfer, verbalized understanding. Will continue to monitor.
[2020-12-16] MEDS: sodium polystyrene sulfonate 15 gm/60 mL Btl PO (19:30)
--- NOTE | 2020-12-16 19:59 | PC.NURSE ---
Transfer Note Patient transferred to med-surg bed 252-2 from ICU via bed. Handoff report given to ALICE Anderson. Patient oriented to environment and equipment. Covering service notified. Orders reviewed and will continue to monitor. Family and/or claim service representative notified. All patient belongings transferred with patient.
[2020-12-16 20:47] LABS: Glucose Point of Care 227 mg/dL (70-110)
[2020-12-17] VITALS (11 sets, daily range): BP systolic 132–156; BP diastolic 66–75; PULSE 90–126; RESP 16–32; TEMP 36.7–37.3; O2SAT 92–99
[2020-12-17] MEDS: levalbuterol 1.25 mg/3 mL Neb INHALATION ×4 (03:12→20:54)
--- NOTE | 2020-12-17 03:35 | PC.NURSE ---
patient placed back on bi pap per Rt at this time
--- NOTE | 2020-12-17 04:13 | PC.NURSE ---
patient took her bi pap off at this time and went back to the ri.
[2020-12-17 05:21] LABS: Hemoglobin 8.1 g/dL (11.5-15.3); Lymphocytes # 0.3 10^3/uL (0.8-4.8); Lymphocytes % 6.9 %; Mean Corpuscular HGB Conc 31.2 g/dL (30.0-36.0); Mean Corpuscular Hemoglobin 27.1 pg (28.0-34.0); Mean Platelet Volume 10.7 fL (7.4-10.4); Monocytes # 0.2 10^3/uL (0.2-0.9); Monocytes % 4.5 %; Neutrophils # 4.07 10^3/uL (1.8-7.7); Neutrophils % 88.2 %; Nucleated Red Blood Cells % 0 %; Platelet Count 147 10^3/cmm (130-400); Red Blood Count 2.99 10^6/uL (4.1-5.3); Red Cell Distribution Width 14.1 % (12.1-15.1); White Blood Count 4.6 10^3/uL (4.0-10.0)
[2020-12-17 05:38] LABS: Anion Gap 5.5 (5-19); Blood Urea Nitrogen 17 mg/dL (6-20); Calcium 8.2 mg/dL (8.5-10.5); Chloride 82 mmol/L (98-107); Creatinine Clr Calc Pharmacy 38.5549; Glomerular Filtration Rate 64.1 mL/min (90-130); Glucose 226 mg/dL (65-115); Osmolality Calculated 277 mOsm/kg (285-295); Potassium 3.5 mmol/L (3.5-5.1); Sodium 129 mmol/L (136-145)
[2020-12-17 05:40] LABS: Carbon Dioxide 45 mmol/L (22-29)
[2020-12-17 06:32] LABS: Glucose Point of Care 275 mg/dL (70-110)
[2020-12-17] MEDS: atorvastatin 40 mg Tablet 80 MG PO (07:54)
[2020-12-17] MEDS: pantoprazole DR 40 mg Tablet PO (07:54)
[2020-12-17] MEDS: aspirin 81 mg EC Tablet PO (07:54)
[2020-12-17] MEDS: montelukast sodium 10 mg Tablet PO (07:54)
[2020-12-17] MEDS: metoprolol succinate ER (24 HR) 25 mg Tablet 12.5 MG PO (07:54)
[2020-12-17] MEDS: clopidogrel 75 mg Tablet PO (07:55)
[2020-12-17] MEDS: enoxaparin 40 mg/0.4 mL Syringe SUBCUT (10:01)
[2020-12-17 11:22] LABS: Glucose Point of Care 228 mg/dL (70-110)
--- NOTE | 2020-12-17 12:07 | PM.PN ---
Subjective Subjective: Interval history: No recurrent chest pain Hyperkalemia improved Sodium 129 Patient is agitated today stating that she wants to take care of her dogs I requested geriatric case manager to talk with the patient she has some concerns regarding her financial aspects if she goes to a residential Off BiPAP saturating well on 5 L has pursed lip breathing, unstable to be discharged home Lower extremity blisters have burst no active sign of cellulitis Hyperglycemia noted Vitals/I&O/Wt Last Vital Signs Temp 99.1 F 12/17/20 11:38 Pulse 107 H 12/17/20 11:38 Resp 17 12/17/20 11:38 BP 150/75 12/17/20 11:38 Pulse Ox 92 12/17/20 11:38 12/16/20 12/17/20 12/17/20 22:59 06:59 14:59 Intake Total 240 / 720.1 960 / 1680.1 600 / 600 Output Total 1800 / 1800 800 / 2600 Balance -1560 / -1079.9 160 / -919.9 600 / 600 Weight last 48 hrs Weight 36.287 kg Physical Exam Narrative: EXAM NARRATIVE: Patient sitting in her bed saturating well on 5 L nasal cannula, has pursed lip breathing Diminished airflow bilaterally Abdomen soft Lower extremity trace edema Venous stasis dermatitis Skin wrinkling Onychomycosis Poor hygiene Protein calorie malnourishment Blisters have popped open no active sign of cellulitis Anxious mood Does use respiratory accessory muscle during conversation Data : 12/17/20 05:03 12/17/20 05:03 Micro: Microbiology 12/15/20 15:11 Blood Culture - Preliminary Blood NEGATIVE TO DATE 12/15/20 15:00 Blood Culture - Preliminary Blood NEGATIVE TO DATE A&P Assessment and plan (1) Protein-calorie malnutrition, severe: Status: Acute (2) NSTEMI (non-ST elevated myocardial infarction): Status: Acute (3) Acute exacerbation of chronic obstructive airways disease: Status: Acute (4) Acute hypercapnic respiratory failure: Status: Acute (5) Acute hyperkalemia: Status: Acute (6) HIV (human immunodeficiency virus infection): Status: Acute Qualifiers: HIV symptom status: asymptomatic Qualified Code(s): Z21 - Asymptomatic human immunodeficiency virus [HIV] infection status (7) Diabetes: Status: Acute Additional A&P Information Acute on chronic hypercapnic hypoxic respite failure NSTEMI Hypokalemia End-stage COPD Unsafe to be discharged home Skin blisters Hyperglycemia Patient currently doing well on 5 L nasal cannula, BiPAP dependent, has pursed lip breathing, unstable to be discharged home, requested geriatric case manager to work with her if she is agreeable to go to residential, Change her diet to mechanical soft Sliding scale with Lantus Continue aspirin, Plavix atorvastatin Toprol succinate finish 48 hours on therapeutic dose of Lovenox, will switch to 40 mg daily regimen, patient refused angiogram and seeing a professor of communication No active chest pain She is high risk for intubation, patient is DNR/DNI, goals of care were discussed in front of ICU nurse, her niece Charo Guerin also stated DNR/DNI status, will ask geriatric case manager to find her DPOA documentation if she has any Remove Angulo catheter Attestations Medical Necessity Statement*: Awaiting residential placement if patient is agreeable Time Spent in Patient Care: 16 - 35 minutes Coding Level of Care Code Acute Dialysis Equipment Technician for Chg Fwd Diagnoses Protein-calorie malnutrition, severe E43 NSTEMI (non-ST elevated myocardial infarction) I21.4 Acute exacerbation of chronic obstructive airways disease J44.1 Acute hypercapnic respiratory failure J96.02 Acute hyperkalemia E87.5 HIV (human immunodeficiency virus infection) Z21 HIV symptom status: asymptomatic Diabetes E11.9
--- NOTE | 2020-12-17 14:20 | PC.NUTR ---
Nutrition assessment d/t low BMI. Po intakes poor. Recommend DIGITAL STRATEGIST SENIOR MANAGER evaluation d/t complaints of chewing/swallowing difficulty and choking. Will add pt meal preferences into dietary information and add chocolate Ensure Plus with meals for additional protein/kcal. Encouraged pt to try Glucerna d/t lower CHO content but pt refused. See full RD assessment for further details.
--- NOTE | 2020-12-17 14:31 | PC.RESP ---
RT Shift Note Frequent safety and respiratory rounds continue. Orders completed as indicated. Patient monitored pre and post treatments throughout shift. Patient [Did.] tolerate treatments appropriately. Condition [.DidNotChange]. Patient and/or welding equipment sales representative educated on respiratory treatment and medications. Patient and/or welding equipment sales representative [VERBALIZED UNDERSTANDING]. Will continue to monitor patient progress.
--- NOTE | 2020-12-17 16:39 | PC.NURSE ---
This RN reviewed patient care and documentation by student nurse.
[2020-12-17 17:03] LABS: Glucose Point of Care 164 mg/dL (70-110)
[2020-12-17 20:28] LABS: Glucose Point of Care 117 mg/dL (70-110)
[2020-12-17] MEDS: insulin glargine 100 units/1 mL 10 UNIT SUBCUT (20:55)
[2020-12-18] VITALS (13 sets, daily range): BP systolic 116–159; BP diastolic 61–84; PULSE 80–115; RESP 16–22; TEMP 35.9–37.2; O2SAT 95–100
[2020-12-18] MEDS: levalbuterol 1.25 mg/3 mL Neb INHALATION ×4 (03:18→20:07)
[2020-12-18 05:31] LABS: Anion Gap 4.8 (5-19); Blood Urea Nitrogen 13 mg/dL (6-20); Calcium 8.3 mg/dL (8.5-10.5); Chloride 90 mmol/L (98-107); Glomerular Filtration Rate 126.3 mL/min (90-130); Osmolality Calculated 280 mOsm/kg (285-295); Sodium 137 mmol/L (136-145)
[2020-12-18 06:16] LABS: Carbon Dioxide 45 mmol/L (22-29); Glucose 30 mg/dL (65-115); Potassium 2.8 mmol/L (3.5-5.1)
[2020-12-18 06:26] LABS: Glucose Point of Care 55 mg/dL (70-110)
[2020-12-18] MEDS: dextrose 50% syringe 50 mL IVP (06:27)
[2020-12-18] MEDS: potassium chloride ER 20 mEq Tablet 60 MEQ PO (06:31)
[2020-12-18 07:04] LABS: Glucose Point of Care 203 mg/dL (70-110)
[2020-12-18] MEDS: pantoprazole DR 40 mg Tablet PO (08:19)
[2020-12-18] MEDS: metoprolol succinate ER (24 HR) 25 mg Tablet 12.5 MG PO (08:19)
[2020-12-18] MEDS: sulfamethoxazole-trimeth DS 160-800 mg Tablet 1 TAB PO (08:19)
[2020-12-18] MEDS: clopidogrel 75 mg Tablet PO (08:19)
[2020-12-18] MEDS: aspirin 81 mg EC Tablet PO (08:19)
[2020-12-18] MEDS: montelukast sodium 10 mg Tablet PO (08:19)
[2020-12-18] MEDS: atorvastatin 40 mg Tablet 80 MG PO (08:20)
[2020-12-18] MEDS: enoxaparin 40 mg/0.4 mL Syringe SUBCUT (08:21)
[2020-12-18 12:27] LABS: Glucose Point of Care 127 mg/dL (70-110)
--- NOTE | 2020-12-18 16:50 | PM.PN ---
Subjective Subjective: Interval history: Patient is agreeable to go to a alf Refused her potassium supplementation however took p.o. regimen she refused IV potassium replenishment this morning No overnight events Vitals/I&O/Wt Last Vital Signs Temp 96.6 F L 12/18/20 15:59 Pulse 109 H 12/18/20 15:59 Resp 22 H 12/18/20 15:59 BP 133/74 12/18/20 15:59 Pulse Ox 95 12/18/20 15:59 12/18/20 12/18/20 12/18/20 06:59 14:59 22:59 Intake Total 640 / 640 Output Total 200 / 950 Balance -200 / 250 640 / 640 Physical Exam Narrative: EXAM NARRATIVE: Patient resting comfortably on 5 L nasal cannula No overnight events Bilateral diminished breath sounds Soft abdomen Emaciated malnourished EOMI, PERRLA No neurological deficit Pursed lip breathing No joint swelling Clinically does look dehydrated Data : 12/17/20 05:03 12/18/20 04:23 A&P Assessment and plan (1) Protein-calorie malnutrition, severe: Status: Acute (2) NSTEMI (non-ST elevated myocardial infarction): Status: Acute (3) Acute exacerbation of chronic obstructive airways disease: Status: Acute (4) Acute hypercapnic respiratory failure: Status: Acute (5) Nicotine addiction: Status: Acute Qualifiers: Nicotine product type: cigarettes Substance use status: other nicotine-induced disorder Qualified Code(s): F17.218 - Nicotine dependence, cigarettes, with other nicotine-induced disorders (6) HIV (human immunodeficiency virus infection): Status: Acute Qualifiers: HIV symptom status: asymptomatic Qualified Code(s): Z21 - Asymptomatic human immunodeficiency virus [HIV] infection status (7) Diabetes: Status: Acute Additional A&P Information Active issues NSTEMI Acute on chronic hypoxic hypercarbic restaurant failure Noncompliance HIV Physical deconditioning Protein calorie malnourishment Refusing inpatient medications Awaiting alf placement Plan: Patient is awaiting alf placement Hypokalemia: IV potassium to be repleted Afebrile, Use BiPAP overnight to decrease work of breathing Her DPOA paperwork has been signed and scanned NSTEMI: Medical management DNR/DNI Guarded prognosis Active smoker not requiring nicotine placement therapy Attestations Medical Necessity Statement*: Awaiting alf placement Time Spent in Patient Care: less than 15 minutes Coding Level of Care Code Acute Chargeback Specialist for Chg Fwd Diagnoses Protein-calorie malnutrition, severe E43 NSTEMI (non-ST elevated myocardial infarction) I21.4 Acute exacerbation of chronic obstructive airways disease J44.1 Acute hypercapnic respiratory failure J96.02 Nicotine addiction F17.218 Nicotine product type: cigarettes Substance use status: other nicotine-induced disorder HIV (human immunodeficiency virus infection) Z21 HIV symptom status: asymptomatic Diabetes E11.9
[2020-12-18] MEDS: potassium chloride ER 20 mEq Tablet 40 MEQ PO (17:41)
[2020-12-18 17:52] LABS: Glucose Point of Care 243 mg/dL (70-110)
[2020-12-18 20:36] LABS: Glucose Point of Care 236 mg/dL (70-110)
[2020-12-19] VITALS (15 sets, daily range): BP systolic 112–149; BP diastolic 70–84; PULSE 80–111; RESP 14–22; TEMP 36.4–37.1; O2SAT 96–100
--- NOTE | 2020-12-19 00:10 | PC.NURSE ---
@1930 patient 02 sat 95% with 02 set @ 2lpm via NC, patient requesting resp therapy due having difficulty breathing, lung sounds stridor posterior throughout. resp therapy came in and administered neb treatments and patient verbalized feeling better, requested some peanut butter and crackers, resp slower. patient currently resting with eyes closed and no resp distress noted.
[2020-12-19] MEDS: levalbuterol 1.25 mg/3 mL Neb INHALATION ×6 (00:27→20:29)
[2020-12-19 03:59] LABS: Glucose Point of Care 156 mg/dL (70-110)
[2020-12-19 05:47] LABS: Anion Gap 4.9 (5-19); Blood Urea Nitrogen 10 mg/dL (6-20); Calcium 7.7 mg/dL (8.5-10.5); Carbon Dioxide 40 mmol/L (22-29); Chloride 90 mmol/L (98-107); Creatinine Clr Calc Pharmacy 57.8324; Glomerular Filtration Rate 102.3 mL/min (90-130); Glucose 222 mg/dL (65-115); Osmolality Calculated 276 mOsm/kg (285-295); Potassium 4.9 mmol/L (3.5-5.1); Sodium 130 mmol/L (136-145)
[2020-12-19 06:32] LABS: Glucose Point of Care 175 mg/dL (70-110)
[2020-12-19] MEDS: pantoprazole DR 40 mg Tablet PO (09:10)
[2020-12-19] MEDS: aspirin 81 mg EC Tablet PO (09:10)
[2020-12-19] MEDS: atorvastatin 40 mg Tablet 80 MG PO (09:11)
[2020-12-19] MEDS: clopidogrel 75 mg Tablet PO (09:11)
[2020-12-19] MEDS: metoprolol succinate ER (24 HR) 25 mg Tablet 12.5 MG PO (09:14)
[2020-12-19] MEDS: enoxaparin 40 mg/0.4 mL Syringe SUBCUT (09:14)
[2020-12-19] MEDS: montelukast sodium 10 mg Tablet PO (09:14)
[2020-12-19 11:06] LABS: Glucose Point of Care 256 mg/dL (70-110)
--- NOTE | 2020-12-19 11:59 | PM.PN ---
Subjective Subjective: Interval history: This morning patient did not endorse any new complaints When asked about BiPAP she adamantly refused to use it Vitals/I&O/Wt Last Vital Signs Temp 98.4 F 12/19/20 11:34 Pulse 96 12/19/20 11:34 Resp 16 12/19/20 11:34 BP 118/75 12/19/20 11:34 Pulse Ox 99 12/19/20 11:34 12/18/20 12/19/20 12/19/20 22:59 06:59 14:59 Intake Total 720 / 1360 360 / 1720 760 / 760 Balance 720 / 1360 360 / 1720 760 / 760 Physical Exam Narrative: EXAM NARRATIVE: Was laying comfortably in her bed Saturating well on 2 L nasal cannula Diminished breath sounds No active stridor or wheezing pursed lip breathing Emaciated malnourished Abdomen soft Lower extremity no edema EOMI, PERRLA Awake alert oriented x3 GCS 15 Data : 12/17/20 05:03 12/19/20 04:45 A&P Assessment and plan (1) Protein-calorie malnutrition, severe: Status: Acute (2) NSTEMI (non-ST elevated myocardial infarction): Status: Acute (3) Acute exacerbation of chronic obstructive airways disease: Status: Acute (4) Acute hypercapnic respiratory failure: Status: Acute (5) Elevated troponin: Status: Acute (6) Nicotine addiction: Status: Acute Qualifiers: Nicotine product type: cigarettes Substance use status: other nicotine-induced disorder Qualified Code(s): F17.218 - Nicotine dependence, cigarettes, with other nicotine-induced disorders (7) HIV (human immunodeficiency virus infection): Status: Acute Qualifiers: HIV symptom status: asymptomatic Qualified Code(s): Z21 - Asymptomatic human immunodeficiency virus [HIV] infection status (8) Diabetes: Status: Acute Additional A&P Information Patient is awaiting correction placement She is refusing use of BiPAP for her end-stage COPD Currently doing well on 2 L nasal cannula In case of worsening of her mentation would recommend stat ABG and use of BiPAP, she is DNR/DNI I will kept on all mechanical soft diet because of her edentulous state NSTEMI: No active chest pain, medical management HIV Bactrim every other day Attestations Medical Necessity Statement*: Awaiting correction placement Time Spent in Patient Care: less than 15 minutes Coding Level of Care Code Acute Tactical/Mobile Watch Officer for Chg Fwd Diagnoses Protein-calorie malnutrition, severe E43 NSTEMI (non-ST elevated myocardial infarction) I21.4 Acute exacerbation of chronic obstructive airways disease J44.1 Acute hypercapnic respiratory failure J96.02 Elevated troponin R77.8 Nicotine addiction F17.218 Nicotine product type: cigarettes Substance use status: other nicotine-induced disorder HIV (human immunodeficiency virus infection) Z21 HIV symptom status: asymptomatic Diabetes E11.9
[2020-12-19] MEDS: LORazepam 0.5 mg Tablet PO (13:06)
--- NOTE | 2020-12-19 14:14 | PC.CHAP ---
Pastoral Care Encounter/Spiritual Assessment Type of Contact [] Declined recruiting administrator visit [] Patient/Family/Request visit [] Outpatient visit [xx] Follow-up visit [] Physician referral [] Code/Alert [] Routine visit [] Staff referral [] Actively dying [] Patient sleeping [] Family support [] [] Out of room [] Palliative care [] [xx] Receiving care in room [] Pre-surgical visit [] Trauma [xx] Long length of stay [] ICU visit [] Other: Relational/Emotional Strength [] Patient feels connected with others/family/visitors/staff [] Distress [] Loneliness/isolation [] Abandonment Spirituality of Patient [] Person of Thea [] Attends Druze of their Thea [] Believes in Prayer [] Reads Bible or Gnosticist materials [] There are Spiritual issues to be addressed Cell Cleaner Interventions [] Prayer [] Active listening [] Non-anxious presence [] Spiritual/emotional support [] Crisis/trauma care [] Spiritual counseling [] Bereavement support [] Provided bereavement packet [] Provided Bible/devotional materials [] Provided toy/stuffed animal, coloring book to patient or family member [] Provided Communion [] Anointing/Dexter [] Salvation [] Completed spiritual assessment [] Other: Impact on Illness or Injury [] Angry [] Fearful [] Anxious [] Often cries [] Exhaustion [] Unable to work [] Unable to attend anabaptism [] Unable to walk/stand [] Unable to read [] Unable to drive [] Unable to eat/drink [] Unable to sleep [] Unable to be with family [] Patient intubated [] Other: Summary Room was filledd with medical personnel. Follow up later. Time spent with patient
--- NOTE | 2020-12-19 15:16 | PC.RESP ---
SMOKING CESSATION AND PULMONARY REHAB INFORMATION SENT TO PATIENT.
[2020-12-19 16:59] LABS: Glucose Point of Care 191 mg/dL (70-110)
[2020-12-19 21:01] LABS: Glucose Point of Care 102 mg/dL (70-110)
[2020-12-19] MEDS: insulin glargine 100 units/1 mL 5 UNIT SUBCUT (21:31)
[2020-12-20] VITALS (16 sets, daily range): BP systolic 116–149; BP diastolic 62–78; PULSE 96–124; RESP 14–26; TEMP 36.4–37.1; O2SAT 95–100
[2020-12-20] MEDS: levalbuterol 1.25 mg/3 mL Neb INHALATION ×6 (00:37→20:27)
[2020-12-20 06:26] LABS: Glucose Point of Care 211 mg/dL (70-110)
[2020-12-20] MEDS: sulfamethoxazole-trimeth DS 160-800 mg Tablet 1 TAB PO (09:30)
[2020-12-20] MEDS: enoxaparin 40 mg/0.4 mL Syringe SUBCUT (09:30)
[2020-12-20] MEDS: clopidogrel 75 mg Tablet PO (09:30)
[2020-12-20] MEDS: montelukast sodium 10 mg Tablet PO (09:30)
[2020-12-20] MEDS: aspirin 81 mg EC Tablet PO (09:30)
[2020-12-20] MEDS: atorvastatin 40 mg Tablet 80 MG PO (09:30)
[2020-12-20] MEDS: metoprolol succinate ER (24 HR) 25 mg Tablet 12.5 MG PO ×2 (09:31→09:34)
[2020-12-20] MEDS: pantoprazole DR 40 mg Tablet PO (09:31)
[2020-12-20 11:03] LABS: Glucose Point of Care 161 mg/dL (70-110)
[2020-12-20 11:04] LABS: Anion Gap 5.5 (5-19); Blood Urea Nitrogen 9 mg/dL (6-20); Chloride 92 mmol/L (98-107); Glomerular Filtration Rate 126.3 mL/min (90-130); Glucose 159 mg/dL (65-115); Osmolality Calculated 280 mOsm/kg (285-295); Potassium 4.5 mmol/L (3.5-5.1); Sodium 134 mmol/L (136-145)
[2020-12-20 11:10] LABS: Carbon Dioxide 41 mmol/L (22-29)
--- NOTE | 2020-12-20 11:36 | PM.PN ---
Subjective Subjective: Interval history: No overnight events awaiting usp placement Asked for Tylenol for her headache Vitals/I&O/Wt Last Vital Signs Temp 98.5 F 12/20/20 11:00 Pulse 96 12/20/20 11:00 Resp 18 12/20/20 11:00 BP 118/68 12/20/20 11:00 Pulse Ox 99 12/20/20 11:00 12/19/20 12/20/20 12/20/20 22:59 06:59 14:59 Intake Total 360 / 1360 240 / 1600 360 / 360 Balance 360 / 1360 240 / 1600 360 / 360 Physical Exam Narrative: EXAM NARRATIVE: Laying comfortably with 2 L nasal cannula saturating well Pursed lip breathing Emaciated malnourished Tolerating her diet No neurological deficit EOMI, PERRLA S1, S2 Soft abdomen Data : 12/17/20 05:03 12/20/20 10:20 A&P Additional A&P Information End-stage COPD, noncompliant, refusing use of BiPAP, she refused her labs this morning however BMP came back, bicarb 41, glucose within normal range, awaiting usp placement most likely be discharged on Tuesday DNR/DNI NSTEMI: Medical management no recurrence of chest pain Clinical soft diet DVT prophylaxis Lovenox Attestations Medical Necessity Statement*: Anticipating discharge on Tuesday Time Spent in Patient Care: less than 15 minutes Coding Level of Care Code Acute Snack Stewardess for Paris Dickerson
[2020-12-20 17:00] LABS: Glucose Point of Care 119 mg/dL (70-110)
[2020-12-20] MEDS: LORazepam 0.5 mg Tablet PO (18:15)
[2020-12-20] MEDS: acetaminophen 325 mg Tablet 650 MG PO (20:16)
[2020-12-20 20:46] LABS: Glucose Point of Care 281 mg/dL (70-110)
[2020-12-20] MEDS: insulin glargine 100 units/1 mL 5 UNIT SUBCUT (21:06)
[2020-12-21] VITALS (15 sets, daily range): BP systolic 129–164; BP diastolic 65–83; PULSE 102–118; RESP 16–28; TEMP 36.3–36.8; O2SAT 95–989
[2020-12-21] MEDS: levalbuterol 1.25 mg/3 mL Neb INHALATION ×7 (00:12→23:22)
[2020-12-21] MEDS: dextrose 50% syringe 50 mL IVP (00:17)
[2020-12-21 00:37] LABS: Glucose Point of Care 24 mg/dL (70-110)
[2020-12-21 00:37] LABS: Glucose Point of Care 171 mg/dL (70-110)
[2020-12-21 01:27] LABS: Glucose Point of Care 74 mg/dL (70-110)
[2020-12-21 02:25] LABS: Glucose Point of Care 86 mg/dL (70-110)
[2020-12-21 04:33] LABS: Glucose Point of Care 95 mg/dL (70-110)
--- NOTE | 2020-12-21 04:42 | PC.NURSE ---
at 2400 aptient sitting on side of bed, bed soiled from urine, patient changed and hygiene given, patient stated Did you let the cats in? , blood sugar checked with result of 24. D50 1 amp administered by RN, Dr. Perry on floor and ordered changes, dc Lantus, change sliding scale to low sliding scale and at meals only. patient ate peanut butter and crackers, drank 1 1/2 carton of milk, patient blood sugar sustaining.
[2020-12-21 06:33] LABS: Glucose Point of Care 104 mg/dL (70-110)
[2020-12-21] MEDS: aspirin 81 mg EC Tablet PO (08:26)
[2020-12-21] MEDS: acetaminophen 325 mg Tablet 650 MG PO (08:26)
[2020-12-21] MEDS: enoxaparin 40 mg/0.4 mL Syringe SUBCUT (08:26)
[2020-12-21] MEDS: pantoprazole DR 40 mg Tablet PO (08:27)
[2020-12-21] MEDS: atorvastatin 40 mg Tablet 80 MG PO (08:27)
[2020-12-21] MEDS: clopidogrel 75 mg Tablet PO (08:27)
[2020-12-21] MEDS: montelukast sodium 10 mg Tablet PO (08:27)
[2020-12-21] MEDS: metoprolol succinate ER (24 HR) 25 mg Tablet 12.5 MG PO (08:27)
[2020-12-21 12:19] LABS: Glucose Point of Care 162 mg/dL (70-110)
--- NOTE | 2020-12-21 12:37 | P.PN_ITS ---
Subjective Subjective: Interval history: Hypoglycemic overnight event Insulin regimen changed patient seemed very happy when I told her she might go to a penitentiary on Tuesday, case management rn working diligently on her case Vitals/I&O/Wt Last Vital Signs Temp 97.5 F L 12/21/20 11:23 Pulse 112 H 12/21/20 11:33 Resp 24 H 12/21/20 11:33 BP 164/83 12/21/20 11:23 Pulse Ox 95 12/21/20 11:33 12/20/20 12/21/20 12/21/20 22:59 06:59 14:59 Intake Total 480 / 1320 120 / 1440 Balance 480 / 1320 120 / 1440 Physical Exam Narrative: EXAM NARRATIVE: Patient laying comfortably in her bed Saturating well on 2 L nasal cannula Awake alert oriented x3 GCS 15 Diminished bilateral breath sounds Cachectic, malnourished Lower extremity no edema No joint swelling Data : 12/17/20 05:03 12/20/20 10:20 Micro: Microbiology 12/15/20 15:00 Blood Culture - Final Blood NO GROWTH AFTER 5 DAYS 12/15/20 15:11 Blood Culture - Final Blood NO GROWTH AFTER 5 DAYS A&P Assessment and plan (1) NSTEMI (non-ST elevated myocardial infarction): Status: Acute (2) Protein-calorie malnutrition, severe: Status: Acute (3) Acute exacerbation of chronic obstructive airways disease: Status: Acute (4) Acute hypercapnic respiratory failure: Status: Acute (5) Acute hyperkalemia: Status: Acute (6) HIV (human immunodeficiency virus infection): Status: Acute Qualifiers: HIV symptom status: asymptomatic Qualified Code(s): Z21 - Asymptomatic human immunodeficiency virus [HIV] infection status (7) Chronic steroid use: Status: Acute Additional A&P Information Acute on chronic hypercapnic hypoxic restaurant failure Improved with BiPAP Patient noncompliant with BiPAP however doing well on 2 L nasal cannula Active smoker HIV positive getting Bactrim on every other day basis Has remained afebrile Protein calorie malnourishment associated with end-stage COPD and possible po lysubstance abuse Hyperkalemia: Improved Chronic steroid use no signs of adrenal crisis NSTEMI: Treated medically patient declined any further investigation, cardiology consult, she would not agree for angiogram, can be discharged on aspirin, Plavix, atorvastatin and Toprol and lisinopril if kidney function is fine Anticipating discharge tomorrow to penitentiary if gets accepted Counseled on smoking cessation Niece Charo Guerin is her DPOA DNR/DNI Hypoglycemic event overnight, insulin regimen changed Attestations Medical Necessity Statement*: Anticipating discharge to penitentiary tomorrow Time Spent in Patient Care: less than 15 minutes Coding Level of Care Code Acute School Bus Driver/Teacher Assistant for Chg Fwd Diagnoses NSTEMI (non-ST elevated myocardial infarction) I21.4 Protein-calorie malnutrition, severe E43 Acute exacerbation of chronic obstructive airways disease J44.1 Acute hypercapnic respiratory failure J96.02 Acute hyperkalemia E87.5 HIV (human immunodeficiency virus infection) Z21 HIV symptom status: asymptomatic Chronic steroid use
--- NOTE | 2020-12-21 13:43 | PC.CHAP ---
Pastoral Care Encounter/Spiritual Assessment Type of Contact [] Declined air pollution control engineer visit [] Patient/Family/Request visit [] Outpatient visit [XX] Follow-up visit [] Physician referral [] Code/Alert [] Routine visit [] Staff referral [] Actively dying [] Patient sleeping [] Family support [] [] Out of room [] Palliative care [] [] Receiving care in room [] Pre-surgical visit [] Trauma [] Long length of stay [] ICU visit [] Other: Relational/Emotional Strength [] Patient feels connected with others/family/visitors/staff [XX] Distress [XX] Loneliness/isolation [XX] Abandonment Spirituality of Patient [] Person of Thea [] Attends Buddhist of their Thea [XX] Believes in Prayer [XX] Reads Bible or Hoahaoism materials [] There are Spiritual issues to be addressed Machine Shop Worker Interventions [XX] Prayer [XX] Active listening [XX] Non-anxious presence [] Spiritual/emotional support [] Crisis/trauma care [] Spiritual counseling [] Bereavement support [] Provided bereavement packet [XX] Provided Bible/devotional materials [] Provided toy/stuffed animal, coloring book to patient or family member [] Provided Communion [] Anointing/[place] [] Salvation [XX] Completed spiritual assessment [] Other: Impact on Illness or Injury [] Angry [] Fearful [] Anxious [] Often cries [] Exhaustion [] Unable to work [] Unable to attend jainism [] Unable to walk/stand [] Unable to read [] Unable to drive [] Unable to eat/drink [] Unable to sleep [] Unable to be with family [] Patient intubated [XX] Other: will be discharged to a nursing facility Summary: Pt extremely upset that her niece (her medical proxy) has determined and convinced medical team that pt is unable to care for herself and must therefore be discharged to a care home. Pt states that her niece has dispersed her pets and belongings. It was extremely difficult for air pollution control engineer to flesh out the story. During the visit, however, the pt switched from being angry and not looking at air pollution control engineer to looking at air pollution control engineer and asking for prayer. Pt states that she is ready to . Next, she stated that she wanted prayer for healing. Time spent with patient: 20 mins
[2020-12-21 17:24] LABS: Glucose Point of Care 136 mg/dL (70-110)
--- NOTE | 2020-12-21 19:46 | PC.NURSE ---
i reported to nurse high pulse 105
[2020-12-21 20:57] LABS: Glucose Point of Care 161 mg/dL (70-110)
[2020-12-22] VITALS (12 sets, daily range): BP systolic 122–156; BP diastolic 69–76; PULSE 75–129; RESP 16–43; TEMP 36.4–36.8; O2SAT 94–99
--- NOTE | 2020-12-22 00:29 | PC.NURSE ---
i reported high pulse to nurse 108
[2020-12-22] MEDS: levalbuterol 1.25 mg/3 mL Neb INHALATION ×5 (03:03→19:55)
[2020-12-22] MEDS: calcium carbonate 500 mg Chew Tablet PO (04:27)
[2020-12-22 06:23] LABS: Anion Gap 4.9 (5-19); Blood Urea Nitrogen 12 mg/dL (6-20); Calcium 8.2 mg/dL (8.5-10.5); Chloride 90 mmol/L (98-107); Glomerular Filtration Rate 163.4 mL/min (90-130); Glucose 122 mg/dL (65-115); Osmolality Calculated 279 mOsm/kg (285-295); Potassium 4.9 mmol/L (3.5-5.1); Sodium 134 mmol/L (136-145)
[2020-12-22 06:29] LABS: Carbon Dioxide 44 mmol/L (22-29)
[2020-12-22 06:47] LABS: Glucose Point of Care 153 mg/dL (70-110)
[2020-12-22] MEDS: metoprolol succinate ER (24 HR) 25 mg Tablet 12.5 MG PO (08:22)
[2020-12-22] MEDS: enoxaparin 40 mg/0.4 mL Syringe SUBCUT (08:22)
[2020-12-22] MEDS: montelukast sodium 10 mg Tablet PO (08:22)
[2020-12-22] MEDS: atorvastatin 40 mg Tablet 80 MG PO (08:22)
[2020-12-22] MEDS: sulfamethoxazole-trimeth DS 160-800 mg Tablet 1 TAB PO (08:22)
[2020-12-22] MEDS: aspirin 81 mg EC Tablet PO (08:22)
[2020-12-22] MEDS: clopidogrel 75 mg Tablet PO (08:23)
[2020-12-22] MEDS: pantoprazole DR 40 mg Tablet PO (08:23)
[2020-12-22 12:30] LABS: Glucose Point of Care 190 mg/dL (70-110)
[2020-12-22] MEDS: LORazepam 0.5 mg Tablet PO (13:22)
[2020-12-22 17:36] LABS: Glucose Point of Care 138 mg/dL (70-110)
--- NOTE | 2020-12-22 17:57 | P.PN_ITS ---
Subjective Subjective: Interval history: Seen this morning. Patient stated that she was very comfortable and had no other complaints. However she was requesting handheld inhalers as she said they work better for her compared to the nebulizer. Patient stated that there is still no bed available for her at the senior living and she is waiting to leave. Vitals/I&O/Wt Last Vital Signs Temp 98 F 12/22/20 15:43 Pulse 121 H 12/22/20 15:43 Resp 24 H 12/22/20 15:43 BP 136/74 12/22/20 15:43 Pulse Ox 95 12/22/20 15:43 12/22/20 12/22/20 12/22/20 06:59 14:59 22:59 Intake Total 300 / 540 480 / 480 Balance 300 / 540 480 / 480 Physical Exam Narrative: EXAM NARRATIVE: EXAM NARRATIVE: Patient laying comfortably in her bed Saturating well on 2 L nasal cannula Awake alert oriented x3 GCS 15 Diminished bilateral breath sounds, minimal bilateral air entry, no gross wheezing or rhonchi present. Cachectic, malnourished Lower extremity no edema No joint swellinG Data : 12/17/20 05:03 12/22/20 05:16 A&P Assessment and plan (1) Protein-calorie malnutrition, severe: Acute on chronic hypercapnic hypoxic restaurant failure Improved with BiPAP Patient noncompliant with BiPAP however doing well on 2 L nasal cannula. Today however respiratory therapist stated that patient was compliant with her BiPAP although she normally is not. Active smoker HIV positive getting Bactrim on every other day basis Has remained afebrile Protein calorie malnourishment associated with end-stage COPD and possible polysubstance abuse Hyperkalemia: Resolved Chronic steroid use no signs of adrenal crisis NSTEMI: Treated medically patient declined any further investigation, cardiology consult, she would not agree for angiogram, can be discharged on aspirin, Yahir vix, atorvastatin and Toprol and lisinopril if kidney function is fine Mild hyponatremia: Continue to monitor. Anticipating discharge tomorrow to senior living if gets accepted Counseled on smoking cessation Niece Charo Guerin is her DPOA DNR/DNI Status: Acute (2) NSTEMI (non-ST elevated myocardial infarction): Status: Acute (3) HIV (human immunodeficiency virus infection): Status: Acute Qualifiers: HIV symptom status: asymptomatic Qualified Code(s): Z21 - Asymptomatic human immunodeficiency virus [HIV] infection status (4) Chronic steroid use: Status: Acute (5) Acute exacerbation of chronic obstructive airways disease: Status: Acute Attestations Medical Necessity Statement*: Awaiting senior living placement. Time Spent in Patient Care: less than 15 minutes Coding Level of Care Code Acute Mandolin Repairer for Chg Fwd Diagnoses Protein-calorie malnutrition, severe E43 NSTEMI (non-ST elevated myocardial infarction) I21.4 HIV (human immunodeficiency virus infection) Z21 HIV symptom status: asymptomatic Chronic steroid use Acute exacerbation of chronic obstructive airways disease J44.1
[2020-12-22 20:37] LABS: Glucose Point of Care 181 mg/dL (70-110)
[2020-12-23] VITALS (9 sets, daily range): BP systolic 122–168; BP diastolic 71–88; PULSE 102–144; RESP 17–28; TEMP 36.4–36.8; O2SAT 90–100
[2020-12-23] MEDS: levalbuterol 1.25 mg/3 mL Neb INHALATION ×5 (02:05→20:25)
[2020-12-23 06:32] LABS: Glucose Point of Care 111 mg/dL (70-110)
[2020-12-23] MEDS: pantoprazole DR 40 mg Tablet PO (07:49)
[2020-12-23] MEDS: LORazepam 0.5 mg Tablet PO (07:49)
[2020-12-23] MEDS: montelukast sodium 10 mg Tablet PO (07:49)
[2020-12-23] MEDS: clopidogrel 75 mg Tablet PO (07:49)
[2020-12-23] MEDS: metoprolol succinate ER (24 HR) 25 mg Tablet 12.5 MG PO (07:49)
[2020-12-23] MEDS: aspirin 81 mg EC Tablet PO (07:50)
[2020-12-23] MEDS: atorvastatin 40 mg Tablet 80 MG PO (07:50)
[2020-12-23] MEDS: enoxaparin 40 mg/0.4 mL Syringe SUBCUT (07:50)
[2020-12-23 12:00] LABS: Glucose Point of Care 229 mg/dL (70-110)
--- NOTE | 2020-12-23 13:07 | PM.PN ---
Subjective Subjective: Interval history: Seen this morning. Patient stated that she was very comfortable and had no other complaints. However she was requesting handheld inhalers as she said they work better for her compared to the nebulizer. Patient stated that there is still no bed available for her at the senior care and she is waiting to leave. Vitals/I&O/Wt Last Vital Signs Temp 97.5 F L 12/23/20 11:35 Pulse 120 H 12/23/20 11:35 Resp 18 12/23/20 11:35 BP 131/77 12/23/20 11:35 Pulse Ox 96 12/23/20 11:35 12/22/20 12/23/20 12/23/20 22:59 06:59 14:59 Intake Total 740 / 1220 240 / 1460 Balance 740 / 1220 240 / 1460 Physical Exam Narrative: EXAM NARRATIVE: EXAM NARRATIVE: Patient laying comfortably in her bed Saturating well on 2 L nasal cannula Awake alert oriented x3 GCS 15 Diminished bilateral breath sounds, minimal bilateral air entry, no gross wheezing or rhonchi present. Cachectic, malnourished Lower extremity no edema No joint swellinG Data : 12/17/20 05:03 12/22/20 05:16 A&P Assessment and plan (1) Protein-calorie malnutrition, severe: Acute on chronic hypercapnic hypoxic respiratory failure - resolved Continue bipap at night. Active smoker HIV positive getting Bactrim on every other day basis Has remained afebrile Protein calorie malnourishment associated with end-stage COPD and possible polysubstance abuse Hyperkalemia: Resolved Chronic steroid use no signs of adrenal crisis NSTEMI: medical management Mild hyponatremia: Continue to monitor. Anticipating discharge tomorrow to senior care if gets accepted Counseled on smoking cessation Niece Charo Guerin is her DPOA DNR/DNI Status: Acute (2) NSTEMI (non-ST elevated myocardial infarction): Status: Acute (3) HIV (human immunodeficiency virus infection): Status: Acute Qualifiers: HIV symptom status: asymptomatic Qualified Code(s): Z21 - Asymptomatic human immunodeficiency virus [HIV] infection status (4) Chronic steroid use: Status: Acute (5) Acute exacerbation of chronic obstructive airways disease: Status: Acute Attestations Medical Necessity Statement*: awaiting senior care placement Time Spent in Patient Care: less than 15 minutes Coding Level of Care Code Acute Activated Sludge Operator for Chg Fwd Diagnoses Protein-calorie malnutrition, severe E43 NSTEMI (non-ST elevated myocardial infarction) I21.4 HIV (human immunodeficiency virus infection) Z21 HIV symptom status: asymptomatic Chronic steroid use Acute exacerbation of chronic obstructive airways disease J44.1
[2020-12-23 17:08] LABS: Glucose Point of Care 90 mg/dL (70-110)
--- NOTE | 2020-12-23 20:05 | PC.NURSE ---
Pt reporting SOB and respirations noted to be labored. Respiratory notified. RT notified this RN that pt would only complete half of her tx and continues to refuse bipap. Education given. Pt continues to refuse.
[2020-12-23] MEDS: acetaminophen 325 mg Tablet 650 MG PO (20:17)
[2020-12-23] MEDS: calcium carbonate 500 mg Chew Tablet PO (20:17)
[2020-12-23 20:59] LABS: Glucose Point of Care 159 mg/dL (70-110)
--- NOTE | 2020-12-23 21:29 | PM.DCS ---
Discharge Providers Date of Admission: 12/15/20 15:04 Date of Discharge: December 24, 2020 Attending Provider at Admission: Dhara Oneil MD Attending Provider at Discharge: aJimie Rubin MD Primary Care Provider: Ta Salas MD Diagnoses at Discharge Discharge Diagnosis (1) Protein-calorie malnutrition, severe: Status: Acute (2) NSTEMI (non-ST elevated myocardial infarction): Status: Acute (3) HIV (human immunodeficiency virus infection): Status: Acute Qualifiers: HIV symptom status: asymptomatic Qualified Code(s): Z21 - Asymptomatic human immunodeficiency virus [HIV] infection status (4) Chronic steroid use: Status: Acute (5) Acute exacerbation of chronic obstructive airways disease: Status: Acute Reason for Visit Reason for Visit: RESP DISTRESS Hospital Course Hospital Course HPI as per Dr. Oneil Adore Broussard is a 60 year old female who has hx of HIV, chronic hypoxic hypercarbic respiratory failure, uses 2 L of oxygen at home, trilogy dependent, active smoker, noncompliant with her medications, multiple admissions in the past for respiratory distress, was sent by her niece today after she found her on the floor. As per the niece they have been trying to place her in a residential because at home she is living a miserable life not able to take care of herself at all. She needs assistance for her daily activities. She is an active smoker and has not quit despite her multiple admission the hospital for COPD exacerbations. She is losing weight not able to eat properly because of worsening shortness of breath. Today when niece checked on her she was found on the floor with multiple roaches around her body, she was soiled in her excreta. EMS was called. She was put on BiPAP for her hypercapnic respiratory failure, she is able to open her eyes spontaneously however not responding appropriately to my questions and commands. I did call both of her nieces, Charo Guerin did tell me that Ms. Broussard would never want chest compression or intubation in case of worsening of her respiratory distress or cardiac arrest. I did tell her about hypercapnic acute respiratory failure, NSTEMI and her encephalopathy. I requested Dr. Reyes if he could place a central line in the ER. For her hyperkalemia I have given her insulin with D50 amp, she cannot take Kayexalate p.o. can try GA regimen, EKG without hyperkalemic changes Course: Patient was admitted for noncompliance to medications and hypercapnic respiratory failure. She was also hyperkalemic and was given kayexalate, insulin with amp D50. Patient was placed on bipap. Hospital admission day 2, patient complained of chest pain. EKG was done which showed T wave inversions. She was given morphine and also carzien for tachycardia. Patient was diagnosed with NSTEMI. Patient refused any further treatment in terms of possible angiogram. She was given 48 hours of anticoagulation and medical management was started. Echo done showed EF 56% with no significant wall motion abnormalities. She also had blisters on lower extremities but no active sign of cellulitis. Bipap to be used overnight. She was awaiting residential placement. For HIV patient is on Bactrim every 48 hours and Biktarvy daily. Physical Exam Narrative: EXAM NARRATIVE: Patient laying comfortably in her bed Saturating well on 2 L nasal cannula Awake alert oriented x3 GCS 15 Diminished bilateral breath sounds, minimal bilateral air entry, no gross wheezing or rhonchi present. Cachectic, malnourished Lower extremity no edema No joint swellinG Discharge Data Data Completed and Pending: Completed Studies During Hospitalization Category Date Time Status CXRP [XR chest 1V portable [id number]] S tat Exams 12/15/20 16:20 Completed XR chest 1V wilda ble [id number] Stat Exams 12/15/20 13:02 Completed CV. echo complete * [id number] Routine Ultrasound 12/16/20 17:47 Completed Labs from last 24 hours 12/23/20 12/23/20 12/23/20 20:53 17:02 11:21 POC Glucose 159 H 90 229 H 12/23/20 06:23 POC Glucose 111 H Vitals: Last Vital Signs Temp 98.3 F 12/23/20 20:00 Pulse 118 H 12/23/20 20:00 Resp 17 12/23/20 20:00 BP 144/73 12/23/20 20:00 Pulse Ox 99 12/23/20 20:00 Discharge Plan Discharge Patient Disposition: er SNF Condition: Stable Prescriptions: New metoprolol succinate 25 mg Tablet Extended Release 24 Hr 12.5 mg PO DAILY Qty: 30 RF: 0 Continued montelukast [Singulair] 10 mg tablet 10 mg PO DAILY RF: 0 albuterol sulfate [ProAir HFA] 90 mcg/actuation HFA aerosol inhaler 2 puff INHALATION Q4H PRN (Reason: Shortness Of Breath) RF: 0 Biktarvy 50-200-25 mg tablet 1 tab PO DAILY RF: 0 Spiriva with HandiHaler 18 mcg Capsule, W/Inhalation Device 1 cap INHALATION DAILY RF: 0 budesonide-formoterol [Symbicort] 160-4.5 mcg/actuation Hfa Aerosol Inhaler 2 puff INHALATION BID RF: 0 (DME) glucometer See Rx Instructions .Route .MEDSUPPLY Qty: 1 RF: 0 furosemide 40 mg tablet 40 mg PO DAILY RF: 0 ipratropium-albuterol 0.5 mg-3 mg(2.5 mg base)/3 mL solution for nebulization 3 ml INHALATION Q6H PRN (Reason: Shortness Of Breath) RF: 0 clopidogrel 75 mg tablet 75 mg PO DAILY RF: 0 aspirin 81 mg Tablet,Delayed Release (Dr/Ec) 81 mg PO DAILY RF: 0 sulfamethoxazole-trimethoprim 800-160 mg Tablet 1 tab PO Q48H 30 Days Qty: 15 RF: 3 potassium chloride [Klor-Con M20] 20 mEq tablet,ER particles/crystals 20 meq PO DAILY RF: 0 insulin aspart U-100 [Novolog Flexpen U-100 Insulin] 100 unit/mL (3 mL) insulin pen See Rx Instructions .ROUTE .COMPLEX RF: 0 Combivent Respimat 20-100 mcg/actuation mist 1 puff INHALATION QID RF: 0 prednisone 5 mg tablet 10 mg PO DAILY RF: 0 pantoprazole 40 mg Tablet,Delayed Release (Dr/Ec) 40 mg PO DAILY Qty: 30 RF: 0 Changed atorvastatin 40 mg tablet 80 mg PO DAILY Qty: 0 RF: 0 Discontinued prednisone 20 mg Tablet 40 mg PO DAILY Qty: 14 RF: 0 levofloxacin 750 mg Tablet 750 mg PO DAILY@0600 Qty: 5 RF: 0 metoprolol tartrate 25 mg Tablet 25 mg PO BID@0900,2100 Qty: 60 RF: 0 Referrals: Ta Salas MD [Primary Care Provider] - Discharge Activity: Cpap/Bipap as instructed Discharge Attestations Time Spent in Discharge Care*: less than 30 min Status at Discharge: Cognitive status at discharge: cognitively intact, Behavioral status at discharge: cooperative, Quality Metrics Clinical Quality Measures During this hospital stay, did patient experience: None Coding Level of Care Code Acute Chg FW DC note Diagnoses Protein-calorie malnutrition, severe E43 NSTEMI (non-ST elevated myocardial infarction) I21.4 HIV (human immunodeficiency virus infection) Z21 HIV symptom status: asymptomatic Chronic steroid use Acute exacerbation of chronic obstructive airways disease J44.1
[2020-12-24] VITALS (17 sets, daily range): BP systolic 118–170; BP diastolic 63–83; PULSE 104–134; RESP 18–38; TEMP 36.3–37.1; O2SAT 83–99
[2020-12-24] MEDS: levalbuterol 1.25 mg/3 mL Neb INHALATION ×6 (00:03→19:43)
[2020-12-24] MEDS: calcium carbonate 500 mg Chew Tablet PO (00:23)
[2020-12-24] MEDS: LORazepam 0.5 mg Tablet PO ×2 (00:31→15:50)
[2020-12-24 06:26] LABS: Glucose Point of Care 133 mg/dL (70-110)
[2020-12-24] MEDS: aspirin 81 mg EC Tablet PO (08:50)
[2020-12-24] MEDS: atorvastatin 40 mg Tablet 80 MG PO (08:50)
[2020-12-24] MEDS: montelukast sodium 10 mg Tablet PO (08:50)
[2020-12-24] MEDS: pantoprazole DR 40 mg Tablet PO (08:50)
[2020-12-24] MEDS: sulfamethoxazole-trimeth DS 160-800 mg Tablet 1 TAB PO (08:50)
[2020-12-24] MEDS: metoprolol succinate ER (24 HR) 25 mg Tablet 12.5 MG PO (08:52)
[2020-12-24] MEDS: enoxaparin 40 mg/0.4 mL Syringe SUBCUT (08:52)
[2020-12-24] MEDS: clopidogrel 75 mg Tablet PO (08:58)
[2020-12-24 11:41] LABS: Glucose Point of Care 117 mg/dL (70-110)
--- NOTE | 2020-12-24 12:16 | P.PN_ITS ---
Subjective Subjective: Interval history: Seen this morning. No acute events overnight. Patient looking forward to leave to a care home once she is accepted. Vitals/I&O/Wt Last Vital Signs Temp 98.0 F 12/24/20 11:25 Pulse 112 H 12/24/20 11:25 Resp 18 12/24/20 11:25 BP 149/78 12/24/20 11:25 Pulse Ox 97 12/24/20 11:25 12/23/20 12/24/20 12/24/20 22:59 06:59 14:59 Intake Total 1080 / 1320 200 / 1520 Balance 1080 / 1320 200 / 1520 Physical Exam Narrative: EXAM NARRATIVE: Patient laying comfortably in her bed Saturating well on 2 L nasal cannula Awake alert oriented x3 GCS 15 Diminished bilateral breath sounds, minimal bilateral air entry, no gross wheezing or rhonchi present. Cachectic, malnourished Lower extremity no edema No joint swellinG Data : 12/17/20 05:03 12/22/20 05:16 A&P Assessment and plan (1) Protein-calorie malnutrition, severe: Acute on chronic hypercapnic hypoxic respiratory failure - resolved Continue bipap at night. Active smoker HIV positive getting Bactrim on every other day basis On Biktarvy daily. Has remained afebrile Protein calorie malnourishment associated with end-stage COPD and possible poly substance abuse Hyperkalemia: Resolved Chronic steroid use no signs of adrenal crisis NSTEMI: medical management Mild hyponatremia: Continue to monitor. Anticipating discharge tomorrow to care home if gets accepted Counseled on smoking cessation Niece Charo Guerin is her DPOA DNR/DNI Status: Acute (2) NSTEMI (non-ST elevated myocardial infarction): Status: Acute (3) HIV (human immunodeficiency virus infection): Status: Acute Qualifiers: HIV symptom status: asymptomatic Qualified Code(s): Z21 - Asymptomatic human immunodeficiency virus [HIV] infection status (4) Chronic steroid use: Status: Acute (5) Acute exacerbation of chronic obstructive airways disease: Status: Acute Attestations Medical Necessity Statement*: Awaiting care home placement. Coding Level of Care Code Acute Housing Inspector for [place] Dickerson Diagnoses Protein-calorie malnutrition, severe E43 NSTEMI (non-ST elevated myocardial infarction) I21.4 HIV (human immunodeficiency virus infection) Z21 HIV symptom status: asymptomatic Chronic steroid use Acute exacerbation of chronic obstructive airways disease J44.1
[2020-12-24 17:24] LABS: Glucose Point of Care 164 mg/dL (70-110)
--- NOTE | 2020-12-24 17:33 | CTR_ITS ---
PROCEDURE INFORMATION: Exam: CT Head Without Contrast Exam date and time: 12/24/2020 5:33 PM Age: 60 years old Clinical indication: Injury or trauma; Fall; Blunt trauma (contusions or hematomas); Patient HX: Scan x 3. Best images. PT has labored breathing; Additional info: Unwitnessed fall TECHNIQUE: Imaging protocol: Computed tomography of the head without contrast. Radiation optimization: All CT scans at this facility use at least one of these dose optimization techniques: automated exposure control; mA and/or kV adjustment per patient size (includes targeted exams where dose is matched to clinical indication); or iterative reconstruction. COMPARISON: CT head wo con* [id number] 02/10/2018 11:09 AM RADIATION DOSE METRICS: Total DLP (mGy-cm): 1913.32 FINDINGS: Limitations: Study is significantly limited by patient motion. Brain: Normal. No hemorrhage. Unremarkable white matter. No mass effect. Cerebral ventricles: No ventriculomegaly. Paranasal sinuses: Visualized sinuses are unremarkable. No fluid levels. Mastoid air cells: Visualized mastoid air cells are well aerated. Bones/joints: Unremarkable. No acute fracture. Soft tissues: Unremarkable. CT/CT head wo con* [id number] IMPRESSION: No acute findings Radiation Dose CTDIVOL = (mGy): DLP = 1913.32 (mGy-cm)
--- NOTE | 2020-12-24 20:19 | PC.NURSE ---
i reported low temp 97.4 and high pulse 114 to nurse
[2020-12-24 21:24] LABS: Glucose Point of Care 184 mg/dL (70-110)
[2020-12-25] VITALS (10 sets, daily range): BP systolic 112–147; BP diastolic 59–80; PULSE 76–119; RESP 18–27; TEMP 36.3–36.7; O2SAT 90–100
--- NOTE | 2020-12-25 00:24 | PC.NURSE ---
i reported high pulse 103 to nurse
[2020-12-25 03:52] LABS: Glucose Point of Care 136 mg/dL (70-110)
--- NOTE | 2020-12-25 03:53 | PC.NURSE ---
Pt reported feeling off and RAKER BUFFING WHEEL stating she isn't usually this weak . Blood sugar checked and noted to be 136. When asked to describe how she is feeling off pt stated I don't know. It is my breathing . RN notified RT of pt wanting assistance with her breathing and refusal for nurse to assist.
[2020-12-25] MEDS: levalbuterol 1.25 mg/3 mL Neb INHALATION ×4 (03:57→15:27)
[2020-12-25] MEDS: calcium carbonate 500 mg Chew Tablet PO ×2 (04:11→08:39)
--- NOTE | 2020-12-25 05:24 | PC.NURSE ---
i reported high pulse 108 to nurse
[2020-12-25 06:35] LABS: Glucose Point of Care 213 mg/dL (70-110)
[2020-12-25] MEDS: pantoprazole DR 40 mg Tablet PO (07:36)
[2020-12-25] MEDS: aspirin 81 mg EC Tablet PO (07:36)
[2020-12-25] MEDS: clopidogrel 75 mg Tablet PO (07:36)
[2020-12-25] MEDS: montelukast sodium 10 mg Tablet PO (07:36)
[2020-12-25] MEDS: atorvastatin 40 mg Tablet 80 MG PO (07:36)
[2020-12-25] MEDS: metoprolol succinate ER (24 HR) 25 mg Tablet 12.5 MG PO (07:36)
[2020-12-25] MEDS: enoxaparin 40 mg/0.4 mL Syringe SUBCUT (07:39)
[2020-12-25] MEDS: LORazepam 0.5 mg Tablet PO (08:39)
--- NOTE | 2020-12-25 11:48 | P.PN_ITS ---
Subjective Subjective: Interval history: Seen this morning. No acute events overnight. Patient looking forward [place] a [place] [facility] once she is accepted. [place] [facility] [place] Biktarvy authorization. Vitals/I&O/Wt Last Vital Signs Temp 98.1 F 12/25/20 11:00 Pulse 110 H 12/25/20 11:00 Resp 20 H 12/25/20 11:00 BP 134/78 12/25/20 11:00 Pulse Ox 96 12/25/20 11:00 12/24/20 12/25/20 12/25/20 22:59 06:59 14:59 Intake Total 600 / 720 600 / 1320 480 / 480 Balance 600 / 720 600 / 1320 480 / 480 Physical Exam Narrative: EXAM NARRATIVE: Patient laying comfortably in her bed Saturating well on 2 L nasal cannula Awake alert oriented x3 GCS 15 Diminished bilateral breath sounds, minimal bilateral air entry, no gross wheezing or rhonchi present. Cachectic, malnourished Lower extremity no edema No joint swellinG Data : 12/17/20 05:03 12/22/20 05:16 A&P Assessment and plan (1) Protein-calorie malnutrition, severe: Acute on chronic hypercapnic hypoxic respiratory failure - resolved Continue bipap at night. Active smoker HIV positive getting Bactrim on every other day basis On Biktarvy daily. Has remained afebrile Protein calorie malnourishment associated with end-stage COPD and possible polysubstance abuse Hyperkalemia: Resolved Chronic steroid use no signs of adrenal crisis NSTEMI: medical management Mild hyponatremia: Continue to monitor. Anticip[place] [facility] [place] [facility] accepted Counseled on smoking cessation Niece Charo Guerin is her DPOA DNR/DNI Status: Acute (2) NSTEMI (non-ST elevated myocardial infarction): Status: Acute (3) HIV (human immunodeficiency virus infection): Status: Acute Qualifiers: HIV symptom status: asymptomatic Qualified Code(s): Z21 - Asymptomatic human immunodeficiency virus [HIV] infection status (4) Chronic steroid use: Status: Acute (5) Acute exacerbation of chronic obstructive airways disease: Status: Acute Attestations Medical Necessity Statement*: Awaiting placement Time Spent in Patient Care: less than 15 minutes Coding Level of Care Code Acute [facility] for [facility] Fwd Diagnoses Protein-calorie malnutrition, severe E43 NSTEMI (non-ST elevated myocardial infarction) I21.4 HIV (human immunodeficiency virus infection) Z21 HIV symptom status: asymptomatic Chronic steroid use Acute exacerbation of chronic obstructive airways disease J44.1
[2020-12-25 11:52] LABS: Glucose Point of Care 67 mg/dL (70-110)
--- NOTE | 2020-12-25 12:43 | P.DS_ITS ---
Discharge Providers Date of Admission: 12/15/20 15:04 Date of Discharge: December 25, 2020 Attending Provider at Admission: Dhara Oneil MD Attending Provider at Discharge: Jaimie Rubin MD Primary Care Provider: Ta Salas MD Diagnoses at Discharge Discharge Diagnosis (1) Protein-calorie malnutrition, severe: Status: Acute (2) NSTEMI (non-ST elevated myocardial infarction): Status: Acute (3) HIV (human immunodeficiency virus infection): Status: Acute Qualifiers: HIV symptom status: asymptomatic Qualified Code(s): Z21 - Asymptomatic human immunodeficiency virus [HIV] infection status (4) Chronic steroid use: Status: Acute (5) Acute exacerbation of chronic obstructive airways disease: Status: Acute Reason for Visit Reason for Visit: RESP DISTRESS Hospital Course Hospital Course HPI as per Dr. Oneil Adore Broussard is a 60 year old female who has hx of HIV, chronic hypoxic hypercarbic respiratory failure, uses 2 L of oxygen at home, trilogy dependent, active smoker, noncompliant with her medications, multiple admissions in the past for respiratory distress, was sent by her niece today after she found her on the floor. As per the niece they have been trying to place her in a skilled nursing because at home she is living a miserable life not able to take care of herself at all. She needs assistance for her daily activities. She is an active smoker and has not quit despite her multiple admission the hospital for COPD exacerbations. She is losing weight not able to eat properly because of worsening shortness of breath. Today when niece checked on her she was found on the floor with multiple roaches around her body, she was soiled in her excreta. EMS was called. She was put on BiPAP for her hypercapnic respiratory failure, she is able to open her eyes spontaneously however not responding appropriately to my questions and commands. I did call both of her nieces, Charo Guerin did tell me that Ms. Broussard would never want chest compression or intubation in case of worsening of her respiratory distress or cardiac arrest. I did tell her about hypercapnic acute respiratory failure, NSTEMI and her encephalopathy. I requested Dr. Reyes if he could place a central line in the ER. For her hyperkalemia I have given her insulin with D50 amp, she cannot take Kayexalate p.o. can try VT regimen, EKG without hyperkalemic changes Course: Patient was admitted for noncompliance to medications and hypercapnic respiratory failure. She was also hyperkalemic and was given kayexalate, insulin with amp D50. Patient was placed on bipap. Hospital admission day 2, patient complained of chest pain. EKG was done which showed T wave inversions. She was given morphine and also carzien for tachycardia. Patient was diagnosed with NSTEMI. Patient refused any further treatment in terms of possible angiogram. She was given 48 hours of anticoagulation and medical management was started. Echo done showed EF 56% with no significant wall motion abnormalities. She also had blisters on lower extremities but no active sign of cellulitis. Bipap to be used overnight. She was awaiting skilled nursing placement. For HIV patient is on Bactrim every 48 hours and Biktarvy daily. Physical Exam Narrative: EXAM NARRATIVE: see todays progress note Discharge Data Data Completed and Pending: Completed Studies During Hospitalization Category Date Time Status CT head wo con* 7 0450 Stat Cat Scan 12/24/20 17:33 Completed CXRP [XR chest 1V portable [id number]] S tat Exams 12/15/20 16:20 Completed XR chest 1V wilda ble [id number] Stat Exams 12/15/20 13:02 Completed CV. echo complete * [id number] Routine Ultrasound 12/16/20 17:47 Completed Labs from last 24 hours 12/25/20 12/25/20 12/25/20 11:08 06:26 03:49 POC Glucose 67 L 213 H 136 H 12/24/20 12/24/20 19:27 17:04 POC Glucose 184 H 164 H Vitals: Last Vital Signs Temp 98.1 F 12/25/20 11:00 Pulse 114 H 12/25/20 12:40 Resp 27 H 12/25/20 12:40 BP 134/78 12/25/20 11:00 Pulse Ox 100 12/25/20 12:40 Discharge Plan Discharge Patient Disposition: er SNF Condition: Stable Prescriptions: New metoprolol succinate 25 mg Tablet Extended Release 24 Hr 12.5 mg PO DAILY Qty: 30 RF: 0 Continued montelukast [Singulair] 10 mg tablet 10 mg PO DAILY RF: 0 albuterol sulfate [ProAir HFA] 90 mcg/actuation HFA aerosol inhaler 2 puff INHALATION Q4H PRN (Reason: Shortness Of Breath) RF: 0 Biktarvy 50-200-25 mg tablet 1 tab PO DAILY RF: 0 Spiriva with HandiHaler 18 mcg Capsule, W/Inhalation Device 1 cap INHALATION DAILY RF: 0 budesonide-formoterol [Symbicort] 160-4.5 mcg/actuation Hfa Aerosol Inhaler 2 puff INHALATION BID RF: 0 (DME) glucometer See Rx Instructions .Route .MEDSUPPLY Qty: 1 RF: 0 furosemide 40 mg tablet 40 mg PO DAILY RF: 0 ipratropium-albuterol 0.5 mg-3 mg(2.5 mg base)/3 mL solution for nebulization 3 ml INHALATION Q6H PRN (Reason: Shortness Of Breath) RF: 0 clopidogrel 75 mg tablet 75 mg PO DAILY RF: 0 aspirin 81 mg Tablet,Delayed Release (Dr/Ec) 81 mg PO DAILY RF: 0 sulfamethoxazole-trimethoprim 800-160 mg Tablet 1 tab PO Q48H 30 Days Qty: 15 RF: 3 potassium chloride [Klor-Con M20] 20 mEq tablet,ER particles/crystals 20 meq PO DAILY RF: 0 insulin aspart U-100 [Novolog Flexpen U-100 Insulin] 100 unit/mL (3 mL) insulin pen See Rx Instructions .ROUTE .COMPLEX RF: 0 Combivent Respimat 20-100 mcg/actuation mist 1 puff INHALATION QID RF: 0 prednisone 5 mg tablet 10 mg PO DAILY RF: 0 pantoprazole 40 mg Tablet,Delayed Release (Dr/Ec) 40 mg PO DAILY Qty: 30 RF: 0 Changed atorvastatin 40 mg tablet 80 mg PO DAILY Qty: 0 RF: 0 Discontinued prednisone 20 mg Tablet 40 mg PO DAILY Qty: 14 RF: 0 levofloxacin 750 mg Tablet 750 mg PO DAILY@0600 Qty: 5 RF: 0 metoprolol tartrate 25 mg Tablet 25 mg PO BID@0900,2100 Qty: 60 RF: 0 Discharge Orders: Discharge Order (Routine); Ordered 12/25/20 Ordered By: Jaimie Rubin Referrals: Ta Salas MD [Primary Care Provider] - Discharge Diet: Soft Mechanical Discharge Activity: Cpap/Bipap as instructed Activity Restrictions/Additional Instructions: follow up with pcp in 1 week Discharge Attestations Time Spent in Discharge Care*: less than 30 min Status at Discharge: Cognitive status at discharge: cognitively intact , Behavioral status at discharge: cooperative , Quality Metrics Clinical Quality Measures During this hospital stay, did patient experience: None Coding Level of Care Code Acute Chg FW DC note Diagnoses Protein-calorie malnutrition, severe E43 NSTEMI (non-ST elevated myocardial infarction) I21.4 HIV (human immunodeficiency virus infection) Z21 HIV symptom status: asymptomatic Chronic steroid use Acute exacerbation of chronic obstructive airways disease J44.1
[2020-12-25 13:36] LABS: Glucose Point of Care 119 mg/dL (70-110)
[2020-12-25 15:14] LABS: SARS Covid-2 Antigen Negative (Negative)
--- NOTE | 2020-12-25 15:26 | PC.NURSE ---
Report called to Anthony Espinosa RN. Discharge orders and instructions sent to facility.
[2020-12-25 17:29] LABS: Glucose Point of Care 204 mg/dL (70-110)
--- NOTE | 2020-12-26 10:42 | PC.SOCIAL ---
discharge follow up call made, spoke with Gema, patient scheduled medications have been ordered but haven't arrived to the facility as of yet, nurse reports medication should arrive today. Unable to obtain information at this time, it doesn't appear the nurse knows much information about the patient.
== END 2020-12-25 18:27 | disposition skilled nursing facility (03) | DRG 189 ==
LOC: ER 14:44 → ICU 15:33 → MEDSURG 12-16 19:58
PROVIDERS: Admitting Provider Internal Medicine; Emergency Provider Family Medicine; PCP Family Medicine; Visit Provider Internal Medicine
DX: J96.22 Acute and chronic respiratory failure with hypercapnia (principal); E43 Unspecified severe protein-calorie malnutrition; I21.4 Non-ST elevation (NSTEMI) myocardial infarction; J44.1 Chronic obstructive pulmonary disease with (acute) exacerbation; B20 Human immunodeficiency virus [HIV] disease; Z68.1 Body mass index [BMI] 19.9 or less, adult; G93.49 Other encephalopathy; E87.1 Hypo-osmolality and hyponatremia; J96.21 Acute and chronic respiratory failure with hypoxia; Z99.81 Dependence on supplemental oxygen; Z91.14 Patient's other noncompliance with medication regimen; I50.9 Heart failure, unspecified; Z79.52 Long term (current) use of systemic steroids; E11.65 Type 2 diabetes mellitus with hyperglycemia; K21.9 Gastro-esophageal reflux disease without esophagitis; F17.210 Nicotine dependence, cigarettes, uncomplicated; I25.2 Old myocardial infarction; E87.5 Hyperkalemia; Z66 Do not resuscitate; Z79.2 Long term (current) use of antibiotics; Z79.51 Long term (current) use of inhaled steroids; Z79.02 Long term (current) use of antithrombotics/antiplatelets; Z79.82 Long term (current) use of aspirin; Z79.4 Long term (current) use of insulin
CPT/HCPCS: 36416; 36556; 36592; 36600; 70450; 71045; 80048; 80051; 80053; 82330; 82805; 82962; 83615; 84145; 84484; 85025; 86140; 87040; 87426; 93005; 93306; 94640; 94660; 96365; 96372; 96375; 99291; C1751; J0610; J1650; J1815 ×2; J2270; J2405; J2920; J2930; J3480; J3490; J7611; J7614